=== PATIENT | male | born 1960 | race Caucasian/White ===

== ENCOUNTER 2017-07-17 10:17 | Inpatient (IN) | payer BC ==
[2017-07-17] MEDS ORDERED: DILTIAZEM HCL/D5W 125 MG/125 ML RTUINJ IV PRN (10:29)
[2017-07-17] MEDS ORDERED: NORMAL SALINE 1000 ML 1,000 ML IV ONE (10:40)
[2017-07-17] MEDS ORDERED: DIGOXIN INJ 0.5 MG/2 ML AMPULE IV ONE ×2 (10:41→11:31)
--- NOTE | 2017-07-17 10:51 | RADIOLOGY REPORT (SQ) ---
EXAM DESCRIPTION: CHEST SINGLE VIEW COMPLETED DATE/TIME: 07/17/2017 10:36 am REASON FOR STUDY: bed mp db COMPARISON: None. EXAM PARAMETERS: NUMBER OF VIEWS: One view. TECHNIQUE: Single frontal radiographic view of the chest acquired. RADIATION DOSE: NA LIMITATIONS: None. FINDINGS: LUNGS AND PLEURA: Minimal patchy airspace disease in the perihilar regions bilaterally, qu estion pulmonary edema. No pleural effusions. No pneumothorax. MEDIASTINUM AND HILAR STRUCTURES: No masses. Contour normal. HEART AND VASCULAR STRUCTURES: No cardiomegaly BONES: No acute findings. HARDWARE: None in the chest. OTHER: No other significant finding. IMPRESSION: Question minimal perihilar pulmonary edema TECHNICAL DOCUMENTATION: JOB ID: [id number] [employer]- All Rights Reserved
[2017-07-17 10:58] LABS: ABSOLUTE LYMPHOCYTES (AUTO) 1.1 10^3/uL (0.5-4.7); ABSOLUTE MONOCYTES (AUTO) 1.7 10^3/uL (0.1-1.4); ABSOLUTE NEUT (AUTO) 12.6 10^3/uL (1.7-8.2); BASOPHILS % (AUTO) 0.1 % (0-2); EOSINOPHILS % (AUTO) 0.1 % (0-6); HEMATOCRIT 44.3 % (37.9-51.0); HEMOGLOBIN 14.9 g/dL (13.5-17.0); LYMPHOCYTES % (AUTO) 7.3 % (13-45); MEAN CORPUSCULAR HEMOGLOBIN 31.9 pg (27.0-33.4); MEAN CORPUSCULAR HGB CONC 33.7 g/dL (32.0-36.0); MEAN CORPUSCULAR VOLUME 95 fl (80-97); PLATELET COUNT 217 10^3/uL (150-450); RED BLOOD COUNT 4.69 10^6/uL (4.35-5.55); RED CELL DISTRIBUTION WIDTH 13.5 % (11.5-14.0); SEGMENTED NEUTROPHILS % (AUTO) 81.5 % (42-78); TOTAL CELLS COUNTED % (AUTO) 100 %; WHITE BLOOD COUNT 15.5 10^3/uL (4.0-10.5)
[2017-07-17 11:20] LABS: ALANINE AMINOTRANSFERASE 39 U/L (21-72); ALBUMIN 3.7 g/dL (3.5-5.0); ALKALINE PHOSPHATASE 64 U/L (38-126); ANION GAP 8 (5-19); ASPARTATE AMINO TRANSFERASE 28 U/L (17-59); BILIRUBIN,DIRECT 0.4 mg/dL (0.0-0.4); BILIRUBIN,TOTAL 0.4 mg/dL (0.2-1.3); BLOOD UREA NITROGEN 54 mg/dL (7-20); CALCIUM 9.6 mg/dL (8.4-10.2); CARBON DIOXIDE 35 mmol/L (22-30); CHLORIDE 91 mmol/L (98-107); CREATINE KINASE 54 U/L (55-170); GLUCOSE 114 mg/dL (75-110); POTASSIUM 4.4 mmol/L (3.6-5.0); SODIUM 133.9 mmol/L (137-145)
--- NOTE | 2017-07-17 11:26 | ER Document Report ---
ED Respiratory Problem - General Chief Complaint: Shortness Of Breath Stated Complaint: SHORTNESS OF BREATH Time Seen by Provider: 07/17/17 10:28 Notes: Patient says that he has felt short of breath and very tired since Saturday. It has been constantly during this 3 days. Has never had this before. Has had a cough with some yellow phlegm production recently. Denies any chest pains. No nausea or vomiting. Patient was transported here by EMS. They were unable to establish an IV. He was given an albuterol nebulizer in route. TRAVEL OUTSIDE OF THE [place] IN LAST 30 DAYS: No - Related Data Allergies/Adverse Reactions: No Known Allergies Allergy (Unverified 07/17/17 10:55) Past Medical History - Social History Smoking Status: Current Every Day Smoker - Stopped 3 days ago. Chew tobacco use (# tins/day): No Frequency of alcohol use: Rare Drug Abuse: None Family History: Reviewed & Not Pertinent Patient has suicidal ideation: No Patient has homicidal ideation: No - Past Medical History Cardiac Medical History: Reports: Hx Hypertension Denies: Hx Atrial Fibrillation, Hx Congestive Heart Failure Pulmonary Medical History: Reports: Hx COPD Endocrine Medical History: Denies: Hx Diabetes Mellitus Type 1, Hx Diabetes Mellitus Type 2 Renal/ Medical History: Reports: Other - BPH Psychiatric Medical History: Reports: Hx Depression Review of Systems - Review of Systems Notes: REVIEW OF SYSTEMS: CONSTITUTIONAL : Denies fever. EENT: Denies eye, ear, nose or mouth or throat pain or other symptoms. CARDIOVASCULAR: Denies chest pain. No peripheral edema. RESPIRATORY: See HPI. GASTROINTESTINAL: Denies abdominal pain or nausea, vomiting, or diarrhea. GENITOURINARY: Denies difficulty or painful urinating, urinary frequency, blood in urine. MUSCULOSKELETAL: Denies back or neck pain. Denies joint pain or swelling. SKIN: Denies rash or skin lesions. NEUROLOGICAL: Denies LOC or altered mental status. Denies headache. Denies sensory loss or motor deficits. ALL OTHER SYSTEMS REVIEWED AND NEGATIVE. Physical Exam - Vital signs Vitals: Resp BP Pulse Ox 28 H 87/59 L 90 L 07/17/17 10:33 07/17/17 10:33 07/17/17 10:33 Interpretation: Hypotensive, Other - Irregular rhythm - Notes Notes: PHYSICAL EXAMINATION: GENERAL: Well-appearing, in no acute distress. Blood pressure with the systolic in the 70s. EMS got 122/79. HEAD: Atraumatic, normocephalic. EYES: Pupils equal round and reactive to light, extraocular movements intact. ENT: oropharynx clear without exudates. Moist mucous membranes. NECK: Normal range of motion, supple. LUNGS: Breath sounds with a few scattered wheezes bilaterally. A few rhonchi are heard as well. No rales heard. HEART: Irregular rate and rhythm without murmurs. ABDOMEN: Soft, nontender. No guarding or rebound. No masses. BACK: No tenderness throughout entire back. EXTREMITIES: Normal range of motion without pain. No pitting edema present. NEUROLOGICAL: Normal speech. Normal sensory, motor, and reflex exams. Awake, alert, and oriented x3. Cranial nerves normal. PSYCH: Normal mood, normal affect. SKIN: Warm, dry, no rashes. Course - Re-evaluation Re-evalutation: 07/17/17 11:26 Initially, blood pressure was low and patient was given a liter of saline and 0.25 mg of Lanoxin IV. Blood pressure remains in the 70s. 07/17/17 11:52 Blood pressure has come up to 91 systolic. Heart rate is down into the 130s. Still A. fib. Patient is alert and active and sits up on the side of the bed. Have ordered a second dose of Lanoxin 0.25 mg IV. Chest x-ray does not show evidence of overt failure. Radiologist says question minimal perihilar pulmonary edema. 07/17/17 12:20 Patient just converted to a normal sinus rhythm. EKG now is absolutely normal. 07/17/17 13:08 Spoke with hospitalist, who will admit the patient for observation to [facility]. - Vital Signs Vital signs: Temp Pulse Resp BP Pulse Ox 77 21 H 115/68 89 L 07/17/17 15:50 07/17/17 18:01 07/17/17 18:00 07/17/17 18:01 - Laboratory Result Diagrams: 07/17/17 10:42 07/17/17 10:42 Laboratory results interpreted by me: 07/17/17 07/17/17 10:42 10:42 WBC 15.5 H Seg Neutrophils % 81.5 H Lymphocytes % 7.3 L Absolute Neutrophils 12.6 H Absolute Monocytes 1.7 H Sodium 133.9 L Chloride 91 L Carbon Dioxide 35 H BUN 54 H Creatinine 1.50 H Est GFR ( Amer) 58 L Est GFR (Non-Af Amer) 48 L Glucose 114 H Creatine Kinase 54 L - Diagnostic Test Radiology results interpreted by me: 07/17/17 11:27 Chest x-ray is essentially normal. No cardiomegaly noted. - EKG Interpretation by Me Rate: Tachycardia Rhythm: A.Fib Critical Care Note - Critical Care Note Total time excluding time spent on procedures (mins): 45 Discharge - Discharge Clinical Impression: Atrial fibrillation with rapid ventricular response, Hypotension Condition: Fair Disposition: ADMITTED OBSERVATION Admitting Provider: Hospitalist Unit Admitted: [facility]
[2017-07-17 11:32] LABS: CREATINE KINASE MB 1.32 ng/mL (<4.55); TROPONIN I < 0.012 ng/mL
[2017-07-17] MEDS ORDERED: NORMAL SALINE 500 ML IV ONE (12:19)
[2017-07-17 13:20] LABS: MAGNESIUM 2.3 mg/dL (1.6-2.3); PHOSPHORUS 3.2 mg/dL (2.5-4.5)
[2017-07-17] MEDS ORDERED: MAGNESIUM HYDROXIDE SUSP 30 ML UDCUP PO PRN (13:45)
[2017-07-17] MEDS ORDERED: ONDANSETRON HCL INJ/PF 4 MG/2 ML SDV IV PRN (13:45)
[2017-07-17] MEDS ORDERED: ONDANSETRON 4 MG TAB.RAPDIS PO PRN (13:45)
[2017-07-17] MEDS ORDERED: ACETAMINOPHEN WITH CODEINE #3 TABLET PO PRN (13:51)
[2017-07-17] MEDS ORDERED: METHYLPREDNISOLONE INJ 40 MG/1 ML SDV IV ONE (15:00)
[2017-07-17] MEDS ORDERED: GUAIFENESIN 600 MG TABLET.SA PO ONE (15:15)
[2017-07-17] MEDS ORDERED: DOXYCYCLINE HYCLATE 100 MG TABLET PO ONE (15:30)
[2017-07-17] MEDS: LANSOPRAZOLE 30 MG TAB.RAP.DR PO SCH (16:18)
[2017-07-17] MEDS: 1/2 NORMAL SALINE 1,000 ML IV PRN (16:18)
[2017-07-17] MEDS: TAMSULOSIN HCL 0.4 MG CAP.SR.24H PO SCH (17:56)
--- NOTE | 2017-07-17 18:10 | PDOC H&P ---
History of Present Illness Admission Date/PCP: 07/17/17 13:15 No PCP, uses [facility] care as needed History of Present Illness: KAMERON TRUJILLO is a very pleasant 56 year old gentleman with a past medical history of: Hypertension BPH Insomnia Depression Nicotine dependence Outpatient medications include Fluoxetine 20 mg daily Lisinopril 40 mg daily Meloxicam gram daily Flomax 0.4 mg daily Trazodone 150 mg at bedtime Singulair 10 mg daily at bedtime Hydrochlorothiazide 25 mg daily He presented to the hospital today with 2 day history of palpitations and shortness of breath. He smokes about 3 cigarettes a day and quit approximately 3 days ago. EMS was called and he was given a nebulizer treatment on the way due to wheezing. When he arrived to the emergency room he was found to be in atrial fibrillation with rapid ventricular rate heart rate was in the 160s. Systolic blood pressure was in the 70s. He received 2 doses of digoxin 0.25 mg 30 minutes apart and converted to sinus rhythm. He was given IV fluid boluses and his current blood pressure is in the 90s systolic. He continues to cough has rhinorrhea and a sore throat. Palpitations have resolved. Denies any chest pain. Has a history of TIA or stroke or NH. Denies history of CHF. He takes meloxicam for arthritis. Does not use NSAIDs or Goody powders on a regular basis. He did notice black stools for a couple of days approximately 2 weeks ago. He did not seek medical attention for it. Last colonoscopy was 5 years ago and he had a few polyps which were removed. He has never had an upper endoscopy. Past Medical History Cardiac Medical History: Reports: Hypertension Denies: Atrial Fibrillation, Congestive Heart Failure Pulmonary Medical History: Reports: Chronic Obstructive Pulmonary Disease (COPD) Endocrine Medical History: Denies: Diabetes Mellitus Type 1, Diabetes Mellitus Type 2 Renal/ Medical History: Reports: Other - BPH Psychiatric Medical History: Reports: Depression Social History Smoking Status: Current Every Day Smoker - Stopped 3 days ago. Frequency of Alcohol Use: None Family History Family History: CAD, Hypertension Parental Family History Reviewed: Yes Children Family History Reviewed: Yes Sibling(s) Family History Reviewed.: Yes Medication/Allergy Home Medications: Fluoxetine HCl [Prozac 20 mg Capsule] 40 mg PO DAILY 07/17/17 Hydrochlorothiazide [Hydrodiuril 25 mg Tablet] 25 mg PO QAM 07/17/17 Lisinopril [Zestril] 40 mg PO DAILY 07/17/17 Meloxicam [Mobic] 7.5 mg PO BID 07/17/17 Montelukast Sodium [Singulair 10 mg Tablet] 10 mg PO QHS 07/17/17 Tamsulosin HCl [Flomax] 0.4 mg PO DAILY 07/17/17 Trazodone HCl [Desyrel] 150 mg PO QHS 07/17/17 Allergies/Adverse Reactions: No Known Allergies Allergy (Unverified 07/17/17 10:55) Review of Systems All systems: reviewed and no additional remarkable complaints except as stated Constitutional: PRESENT: as per HPI. ABSENT: fever(s), night sweats, weakness Eyes: ABSENT: visual disturbances Ears: ABSENT: hearing changes Nose, Mouth, and Throat: PRESENT: sore throat. ABSENT: headache(s) Cardiovascular: PRESENT: dyspnea on exertion, palpitations. ABSENT: chest pain , edema Respiratory: PRESENT: cough, dyspnea, sputum. ABSENT: hemoptysis Gastrointestinal: PRESENT: melena. ABSENT: abdominal pain, diarrhea, hematemesis, hematochezia, nausea, vomiting Integumentary: ABSENT: lesions, rash Neurological: ABSENT: abnormal movements, focal weakness, syncope, weakness Psychiatric: ABSENT: anxiety, hallucinations Endocrine: ABSENT: flushing, heat intolerance Physical Exam Vital Signs: Temp Pulse Resp BP Pulse Ox 24 H 99/62 L 95 07/17/17 13:00 07/17/17 13:00 07/17/17 13:00 Additional comments: Middle-aged gentleman sitting up in bed not in acute distress HEENT: Pupils reactive light moist pink oral fragile mucosa with no lesions no icterus no conjunctival discharge Neck: Supple, trachea is midline, no JVD Lungs: He has diffuse wheezing bilaterally with coarse breath sounds Cardiac: S1-S2 regular no murmurs heard no peripheral edema no cyanosis no calf tenderness no thrills palpable no JVD Abdomen: Soft, no focal tenderness, normal bowel sounds, rectal exam deferred Skin: Warm and dry Neurologic: Awake and alert oriented 3 no facial droop speech is clear and fluent no focal neurologic deficits Motor strength 5 out of 5 bilateral upper and lower extremities No tremor Results Impressions: Chest X-Ray 07/17/17 10:22 IMPRESSION: Question minimal perihilar pulmonary edema Assessment & Plan - Diagnosis (1) Atrial fibrillation with rapid ventricular response Is this a current diagnosis for this admission?: Yes Plan: Reverted to sinus rhythm. Check echocardiogram. Check TSH. (2) History of nicotine use Is this a current diagnosis for this admission?: Yes Plan: He quit 3 days ago. (3) Insomnia Is this a current diagnosis for this admission?: Yes Plan: Continue trazodone. (4) Depression Is this a current diagnosis for this admission?: Yes Plan: Continue fluoxetine (5) Hypotension Is this a current diagnosis for this admission?: Yes Plan: Hold lisinopril and hydrochlorothiazide. Continue IV fluids. (6) COPD exacerbation Is this a current diagnosis for this admission?: Yes Plan: Neb treatments, supplemental oxygen to keep sats above 90%, IV steroids, antitussives per (7) Acute bronchitis Is this a current diagnosis for this admission?: Yes Plan: As above. He has been started on doxycycline. - Time Critical Time spent with patient: 35 or more minutes
[2017-07-17] MEDS: LEVALBUTEROL HCL NEB 1.25 MG/3 ML AMPUL NEB PRN (18:12)
[2017-07-17 18:51] LABS: APPEARANCE,URINE SLIGHTLY-CLOUDY; BILIRUBIN,URINE NEGATIVE (NEGATIVE); COLOR,URINE YELLOW; GLUCOSE, URINE NEGATIVE (NEGATIVE); KETONES,URINE NEGATIVE (NEGATIVE); LEUKOCYTE ESTERASE,URINE MODERATE (NEGATIVE); NITRITE,URINE NEGATIVE (NEGATIVE); PROTEIN,URINE NEGATIVE (NEGATIVE); UROBILINOGEN,URINE NEGATIVE mg/dL (<2.0)
[2017-07-17] MEDS: LEVALBUTEROL HCL NEB 0.63 MG/3 ML AMPUL NEB SCH (20:56)
[2017-07-17] MEDS: METHYLPREDNISOLONE INJ 40 MG/1 ML SDV IV SCH (21:10)
[2017-07-17] MEDS: MONTELUKAST SODIUM 10 MG TABLET PO SCH (21:10)
[2017-07-17] MEDS: TRAZODONE HCL 50 MG TABLET PO SCH (21:10)
[2017-07-17] MEDS: DOXYCYCLINE HYCLATE 100 MG TABLET PO SCH (21:10)
[2017-07-17] MEDS: GUAIFENESIN 600 MG TABLET.SA PO SCH (21:11)
--- NOTE | 2017-07-17 23:10 | EKG REPORT ---
SEVERITY:- ABNORMAL ECG - ATRIAL FIBRILLATION WITH RAPID V-RATE : Confirmed by: Chavez Chavez 17-Jul-2017 23:10:12
--- NOTE | 2017-07-17 23:10 | EKG REPORT ---
SEVERITY:- NORMAL ECG - SINUS RHYTHM : Confirmed by: Chavez Chavez 17-Jul-2017 23:10:03
[2017-07-17 23:48] LABS: HEMATOCRIT 43.7 % (37.9-51.0); HEMOGLOBIN 14.6 g/dL (13.5-17.0); MEAN CORPUSCULAR HEMOGLOBIN 31.7 pg (27.0-33.4); MEAN CORPUSCULAR HGB CONC 33.4 g/dL (32.0-36.0); MEAN CORPUSCULAR VOLUME 95 fl (80-97); PLATELET COUNT 187 10^3/uL (150-450); RED BLOOD COUNT 4.61 10^6/uL (4.35-5.55); RED CELL DISTRIBUTION WIDTH 13.4 % (11.5-14.0)
[2017-07-18] MEDS: 1/2 NORMAL SALINE 1,000 ML IV PRN (00:07)
[2017-07-18 00:18] LABS: ABSOLUTE LYMPHOCYTES# (MANUAL) 0.4 10^3/uL (0.5-4.7); ABSOLUTE MONOCYTES # (MANUAL) 0.2 10^3/uL (0.1-1.4); ABSOLUTE NEUTROPHILS# (MANUAL) 9.4 10^3/uL (1.7-8.2); BAND NEUTROPHILS % (MANUAL) 3 % (3-5); BASOPHILS % (MANUAL) 0 % (0-2); EOSINOPHILS % (MANUAL) 0 % (0-6); LYMPHOCYTES % (MANUAL) 4 % (13-45); MONOCYTES % (MANUAL) 2 % (3-13); NUCLEATED RED BLOOD CELLS 1 /100 WBC (0); SEGMENTED NEUTROPHILS % (MAN) 91 % (42-78); TOTAL CELLS COUNTED 100
[2017-07-18 00:19] LABS: OVALOCYTES SLIGHT; POIKILOCYTOSIS SLIGHT; TEAR DROP CELLS SLIGHT; TOXIC GRANULATION SLIGHT
[2017-07-18 00:20] LABS: PLATELET COMMENT ADEQUATE
[2017-07-18] MEDS: LEVALBUTEROL HCL NEB 0.63 MG/3 ML AMPUL NEB SCH ×4 (02:07→20:07)
[2017-07-18] MEDS: LANSOPRAZOLE 30 MG TAB.RAP.DR PO SCH ×2 (05:27→17:06)
[2017-07-18] MEDS: METHYLPREDNISOLONE INJ 40 MG/1 ML SDV IV SCH ×3 (05:27→21:49)
[2017-07-18 05:28] LABS: HEMATOCRIT 42.8 % (37.9-51.0); HEMOGLOBIN 14.6 g/dL (13.5-17.0); MEAN CORPUSCULAR HEMOGLOBIN 32.3 pg (27.0-33.4); MEAN CORPUSCULAR VOLUME 95 fl (80-97); PLATELET COUNT 194 10^3/uL (150-450); RED BLOOD COUNT 4.51 10^6/uL (4.35-5.55); RED CELL DISTRIBUTION WIDTH 13.4 % (11.5-14.0)
[2017-07-18 05:48] LABS: ANION GAP 9 (5-19); BLOOD UREA NITROGEN 41 mg/dL (7-20); CALCIUM 9.3 mg/dL (8.4-10.2); CARBON DIOXIDE 32 mmol/L (22-30); CHLORIDE 96 mmol/L (98-107); GLUCOSE 165 mg/dL (75-110); MAGNESIUM 2.7 mg/dL (1.6-2.3); POTASSIUM 5.1 mmol/L (3.6-5.0); TRIGLYCERIDES 121 mg/dL (<150)
[2017-07-18 05:59] LABS: DIRECT LDL 79 mg/dL (<100)
[2017-07-18] MEDS ORDERED: FUROSEMIDE INJ/PF 20 MG/2 ML SDV ONE (09:20)
[2017-07-18] MEDS: GUAIFENESIN 600 MG TABLET.SA PO SCH ×3 (09:22→21:48)
[2017-07-18] MEDS: ENOXAPARIN SODIUM INJ 40 MG/0.4 ML DISP.SYRIN SUBCUT SCH (09:22)
[2017-07-18] MEDS: DOXYCYCLINE HYCLATE 100 MG TABLET PO SCH ×2 (09:22→21:48)
[2017-07-18] MEDS ORDERED: ONDANSETRON 4 MG TAB.RAPDIS PO PRN (10:00)
[2017-07-18] MEDS ORDERED: MAGNESIUM HYDROXIDE SUSP 30 ML UDCUP PO PRN (10:00)
[2017-07-18] MEDS ORDERED: MELOXICAM 15 MG TABLET PO SCH (10:00)
[2017-07-18] MEDS ORDERED: FLUOXETINE HCL 20 MG CAPSULE PO SCH (10:00)
[2017-07-18] MEDS ORDERED: ONDANSETRON HCL INJ/PF 4 MG/2 ML SDV IV PRN (10:00)
[2017-07-18] MEDS ORDERED: ASPIRIN 325 MG TABLET, ENT COATED PO SCH (10:00)
[2017-07-18] MEDS ORDERED: FUROSEMIDE INJ/PF 100 MG/10 ML SDV IV ONE (10:00)
[2017-07-18] MEDS: ASPIRIN 325 MG TABLET, ENT COATED PO SCH (10:42)
--- NOTE | 2017-07-18 13:15 | XCELERA REPORT ---
[address] [address] Transthoracic Echocardiogram Report Name: KAMERON TRUJILLO Age: 56 yrs Gender: Male : 1960 Patient Status: Inpatient Patient Location: [address] [place] [address] Study Date: 07/18/2017 10:20 AM Height: 68 in Weight: 223 lb BSA: 2.1 m2 Procedure: A two-dimensional transthoracic echocardiogram with color flow Doppler was performed. Study Quality: Technically suboptimal. The study was technically difficult with many images being suboptimal in quality. Reason For Study: ATRIAL FIBRILLATION History: ATRIAL FIBRILLATION. Ordering Physician: DESEAN MILLER Performed By: Edie Cruz Interpretation Summary The left ventricle is normal in size. There is normal left ventricular wall thickness. LV EF is > than 65% Doppler measurements suggest normal left ventricular diastolic function The left ventricular wall motion is normal. There is no ventricular septal defect visualized. The right atrium is normal. The left atrial size is normal. There is no evidence of mitral valve prolapse. There is no vegetation seen on the mitral valve. There is no mitral valve stenosis. There is no mitral regurgitation noted. There is no aortic valvular vegetation. There is no aortic valve stenosis There is no LVOT obstruction. No aortic regurgitation is present. There is no tricuspid stenosis. There is a trace amount of tricuspid regurgitation There is mild pulmonary hypertension by echo RVSP is 44 mm of Hg , with RA mean of 10. There is no pulmonic valvular stenosis. There is no pulmonic valvular regurgitation. The aortic root is normal size. There is no pericardial effusion. MMode/2D Measurements & Calculations RVDd: 3.1 cm LVIDd: 4.8 cm FS: 42.5 % Ao root diam: 3.1 cm IVSd: 0.92 cm LVIDs: 2.8 cm EDV(Teich): 109.1 ml LVPWd: 0.86 cm ESV(Teich): 28.9 ml Ao root area: 7.3 cm2 EF(Teich): 73.5 % LA dimension: 3.5 cm Doppler Measurements & Calculations MV E max lala: MV P1/2t max lala: Ao V2 max: LV V1 max P.2 cm/sec 110.8 cm/sec 152.9 cm/sec 6.6 mmHg MV A max lala: MV P1/2t: 90.6 msec Ao max PG: LV V1 max: 83.9 cm/sec 9.4 mmHg 128.9 cm/sec MV E/A: 1.3 MVA(P1/2t): 2.4 cm2 MV dec slope: 358.0 cm/sec2 PA V2 max: TR max lala: 120.1 cm/sec 291.8 cm/sec PA max PG: TR max P.1 mmHg 5.8 mmHg Left Ventricle The left ventricle is normal in size. There is normal left ventricular wall thickness. LV EF is > than 65%. Left ventricular systolic function is normal. Doppler measurements suggest normal left ventricular diastolic function. The left ventricular wall motion is normal. There is no thrombus. There is no ventricular septal defect visualized. Right Ventricle The right ventricle is not well visualized secondary to technical limitations. Atria The right atrium is normal. The left atrial size is normal. The interatrial septum is intact with no evidence for an atrial septal defect. Mitral Valve There is no evidence of mitral valve prolapse. There is no vegetation seen on the mitral valve. There is no mitral valve stenosis. There is no mitral regurgitation noted. Aortic Valve There is no aortic valvular vegetation. There is no aortic valve stenosis. There is no LVOT obstruction. No aortic regurgitation is present. Tricuspid Valve There is no tricuspid stenosis. There is a trace amount of tricuspid regurgitation. There is mild pulmonary hypertension by echo. RVSP is 44 mm of Hg , with RA mean of 10. Pulmonic Valve There is no pulmonic valvular stenosis. There is no pulmonic valvular regurgitation. Great Vessels The aortic root is normal size. Effusions There is no pericardial effusion. : PAUL, MAY > Carlota Joseph
[2017-07-18] MEDS: TAMSULOSIN HCL 0.4 MG CAP.SR.24H PO SCH (17:06)
--- NOTE | 2017-07-18 18:15 | PDOC PROGRESS REPORT ---
Subjective Progress Note for:: 07/18/17 Subjective:: Very pleasant 56-year-old gentleman with a history of hypertension and tobacco use who presented with atrial fibrillation with RVR which reverted to sinus rhythm after he got 2 doses of digoxin in the emergency room. He was diagnosed with hypoxia acute bronchitis and COPD exacerbation and continues to be short of breath and hypoxic. We will continue to treat him with steroids and antibiotics. He also had some signs of pulmonary edema most likely due to fluid overload and received 1 dose of Lasix and is doing better. Reason For Visit: AFIB RVR ACUTE BRONCHITIS Physical Exam Vital Signs: Temp Pulse Resp BP Pulse Ox 98.4 F 73 18 121/64 92 07/18/17 16:47 07/18/17 16:47 07/18/17 16:47 07/18/17 16:47 07/18/17 16:47 Intake & Output 07/17/17 07/18/17 07/19/17 06:59 06:59 06:59 Intake Total 1754 Output Total 300 Balance 1454 Weight 102 kg Additional comments: Lace male sitting in bed not in acute distress Lungs: Coarse breath sounds bilaterally positive use of accessory muscles Cardiac: S1-S2 regular no peripheral edema no cyanosis no calf tenderness no thrills palpable Abdomen: Soft, no focal tenderness normal bowel sounds rectal exam deferred Skin: Warm and dry Neurologic awake alert oriented 3 speech is clear and fluent no focal neurologic deficits Results Laboratory Results: 07/18/17 04:55 07/18/17 04:55 07/17/17 07/17/17 07/18/17 18:30 23:40 04:55 WBC 10.0 RBC 4.61 Hgb 14.6 Hct 43.7 MCV 95 MCH 31.7 MCHC 33.4 RDW 13.4 Plt Count 187 Seg Neutrophils % Not Reportable Lymphocytes % Not Reportable Monocytes % Not Reportable Eosinophils % Not Reportable Basophils % Not Reportable Absolute Neutrophils Not Reportable Absolute Lymphocytes Not Reportable Absolute Monocytes Not Reportable Absolute Eosinophils Not Reportable Absolute Basophils Not Reportable Sodium 137.0 Potassium 5.1 H Chloride 96 L Carbon Dioxide 32 H Anion Gap 9 BUN 41 H Creatinine 1.02 Est GFR ( Amer) > 60 Est GFR (Non-Af Amer) > 60 Glucose 165 H Calcium 9.3 Magnesium 2.7 H Triglycerides 121 Cholesterol 148.20 LDL Cholesterol Direct 79 VLDL Cholesterol 24.0 HDL Cholesterol 36 L TSH Urine Color YELLOW Urine Appearance SLIGHTLY-CLOUDY Urine pH 5.0 Ur Specific [place] 1.010 Urine Protein NEGATIVE Urine Glucose (UA) NEGATIVE Urine Ketones NEGATIVE Urine Blood SMALL H Urine Nitrite NEGATIVE Ur Leukocyte Esterase MODERATE H Urine WBC (Auto) 30 Urine RBC (Auto) 0 07/18/17 07/18/17 04:55 04:55 WBC 8.0 RBC 4.51 Hgb 14.6 Hct 42.8 MCV 95 MCH 32.3 MCHC 34.0 RDW 13.4 Plt Count 194 Seg Neutrophils % Lymphocytes % Monocytes % Eosinophils % Basophils % Absolute Neutrophils Absolute Lymphocytes Absolute Monocytes Absolute Eosinophils Absolute Basophils Sodium Potassium Chloride Carbon Dioxide Anion Gap BUN Creatinine Est GFR ( Amer) Est GFR (Non-Af Amer) Glucose Calcium Magnesium Triglycerides Cholesterol LDL Cholesterol Direct VLDL Cholesterol HDL Cholesterol TSH 0.09 L Urine Color Urine Appearance Urine pH Ur Specific [place] Urine Protein Urine Glucose (UA) Urine Ketones Urine Blood Urine Nitrite Ur Leukocyte Esterase Urine WBC (Auto) Urine RBC (Auto) 07/18/17 04:45 NT-Pro-B Natriuret Pep 259 Impressions: Chest X-Ray 07/17/17 10:22 IMPRESSION: Question minimal perihilar pulmonary edema Assessment & Plan - Diagnosis (1) Atrial fibrillation with rapid ventricular response Is this a current diagnosis for this admission?: Yes (2) History of nicotine use Is this a current diagnosis for this admission?: Yes (3) Insomnia Is this a current diagnosis for this admission?: Yes (4) Depression Is this a current diagnosis for this admission?: Yes (5) Hypotension Is this a current diagnosis for this admission?: Yes (6) COPD exacerbation Is this a current diagnosis for this admission?: Yes (7) Acute bronchitis Is this a current diagnosis for this admission?: Yes - Time Time Spent with patient: 25-34 minutes - Plan Summary Plan Summary: [id number] score is 1, his risk of stroke is 0.6% per year. He will not be started on anticoagulation. Continue aspirin. He is in sinus rhythm. Continue to treat his acute bronchitis and COPD exacerbation with steroids and bronchodilators supplemental oxygen and antibiotics.
[2017-07-18] MEDS: MONTELUKAST SODIUM 10 MG TABLET PO SCH (21:47)
[2017-07-18] MEDS: TRAZODONE HCL 50 MG TABLET PO SCH (21:48)
[2017-07-19] MEDS: LEVALBUTEROL HCL NEB 0.63 MG/3 ML AMPUL NEB SCH ×4 (02:01→21:13)
[2017-07-19] MEDS: METHYLPREDNISOLONE INJ 40 MG/1 ML SDV IV SCH ×3 (05:28→21:25)
[2017-07-19] MEDS: LANSOPRAZOLE 30 MG TAB.RAP.DR PO SCH ×2 (05:28→17:10)
[2017-07-19] MEDS: LEVALBUTEROL HCL NEB 1.25 MG/3 ML AMPUL NEB PRN ×2 (05:49→20:37)
[2017-07-19] MEDS ORDERED: TAMSULOSIN HCL 0.4 MG CAP.SR.24H PO SCH (10:00)
[2017-07-19] MEDS: DOXYCYCLINE HYCLATE 100 MG TABLET PO SCH ×2 (10:02→21:25)
[2017-07-19] MEDS: ENOXAPARIN SODIUM INJ 40 MG/0.4 ML DISP.SYRIN SUBCUT SCH (10:02)
[2017-07-19] MEDS: ASPIRIN 325 MG TABLET, ENT COATED PO SCH (10:02)
[2017-07-19] MEDS: GUAIFENESIN 600 MG TABLET.SA PO SCH ×2 (10:02→21:26)
[2017-07-19] MEDS: FLUOXETINE HCL 20 MG CAPSULE PO SCH (10:08)
[2017-07-19] MEDS ORDERED: MELOXICAM 7.5 MG TABLET PO ONE (11:00)
[2017-07-19] MEDS ORDERED: HYDROCHLOROTHIAZIDE 25 MG TABLET PO ONE (11:00)
[2017-07-19 11:49] LABS: ANION GAP 6 (5-19); BLOOD UREA NITROGEN 38 mg/dL (7-20); CALCIUM 9.4 mg/dL (8.4-10.2); CARBON DIOXIDE 39 mmol/L (22-30); CHLORIDE 94 mmol/L (98-107); GLUCOSE 138 mg/dL (75-110); POTASSIUM 4.6 mmol/L (3.6-5.0); SODIUM 139.4 mmol/L (137-145)
[2017-07-19 12:20] LABS: THYROID STIMULATING HORMONE 0.09 uIU/mL (0.47-4.68)
[2017-07-19 12:47] LABS: FREE T4 (FREE THYROXINE) 1.69 ng/dL (0.78-2.19)
[2017-07-19] MEDS ORDERED: ACETAMINOPHEN WITH CODEINE #3 TABLET PO PRN (13:54)
[2017-07-19] MEDS: TAMSULOSIN HCL 0.4 MG CAP.SR.24H PO SCH (17:10)
[2017-07-19] MEDS: ACETAMINOPHEN WITH CODEINE #3 TABLET PO SCH (17:11)
[2017-07-19] MEDS ORDERED: MELOXICAM 7.5 MG TABLET PO SCH (18:00)
--- NOTE | 2017-07-19 19:13 | PDOC PROGRESS REPORT ---
Subjective Progress Note for:: 07/19/17 Subjective:: Feels a little better today. Continues to cough Reason For Visit: ATRIAL FIBRILLATION WITH RVR, ACUTE BRONCHITIS, Physical Exam Vital Signs: Temp Pulse Resp BP Pulse Ox 98.6 F 73 20 132/68 H 95 07/19/17 16:09 07/19/17 16:09 07/19/17 16:09 07/19/17 16:09 07/19/17 16:09 Intake & Output 07/18/17 07/19/17 07/20/17 06:59 06:59 06:59 Intake Total 1259 60 Balance 1259 60 Weight 96.8 kg General appearance: PRESENT: no acute distress Head exam: PRESENT: atraumatic, normocephalic Eye exam: ABSENT: periorbital swelling Ear exam: PRESENT: normal external ear exam Respiratory exam: PRESENT: symmetrical, wheezes Cardiovascular exam: PRESENT: RRR GI/Abdominal exam: PRESENT: normal bowel sounds, soft. ABSENT: tenderness Rectal exam: PRESENT: deferred Extremities exam: ABSENT: calf tenderness, pedal edema Neurological exam: PRESENT: alert, awake, oriented to person, oriented to place , oriented to time, oriented to situation Results Laboratory Results: 07/19/17 11:11 07/19/17 07/19/17 11:11 11:11 Sodium 139.4 Potassium 4.6 Chloride 94 L Carbon Dioxide 39 H Anion Gap 6 BUN 38 H Creatinine 0.97 Est GFR ( Amer) > 60 Est GFR (Non-Af Amer) > 60 Glucose 138 H Calcium 9.4 TSH 0.09 L Free T4 1.69 Impressions: Chest X-Ray 07/17/17 10:22 IMPRESSION: Question minimal perihilar pulmonary edema Assessment & Plan - Diagnosis (1) Atrial fibrillation with rapid ventricular response Is this a current diagnosis for this admission?: Yes Plan: Reverted to sinus rhythm. Check echocardiogram. Check TSH. (2) History of nicotine use Is this a current diagnosis for this admission?: Yes Plan: He quit 3 days ago. (3) Insomnia Is this a current diagnosis for this admission?: Yes Plan: Continue trazodone. (4) Depression Is this a current diagnosis for this admission?: Yes Plan: Continue fluoxetine (5) Hypotension Is this a current diagnosis for this admission?: Yes (6) COPD exacerbation Is this a current diagnosis for this admission?: Yes Plan: Neb treatments, supplemental oxygen to keep sats above 90%, IV steroids, antitussives. (7) Acute bronchitis Is this a current diagnosis for this admission?: Yes Plan: As above. He has been started on doxycycline. - Time Time Spent with patient: 25-34 minutes
[2017-07-19] MEDS: MONTELUKAST SODIUM 10 MG TABLET PO SCH (21:25)
[2017-07-19] MEDS ORDERED: TRAZODONE HCL 50 MG TABLET PO SCH (22:00)
[2017-07-19] MEDS ORDERED: MONTELUKAST SODIUM 10 MG TABLET PO SCH (22:00)
[2017-07-19] MEDS ORDERED: (PENDING PHARMACY ID) (Trazodone Hcl [Desyrel] 150 MG) PO SCH (22:00)
[2017-07-20] MEDS: LANSOPRAZOLE 30 MG TAB.RAP.DR PO SCH (05:48)
[2017-07-20] MEDS: METHYLPREDNISOLONE INJ 40 MG/1 ML SDV IV SCH ×2 (05:48→14:05)
[2017-07-20] MEDS: LEVALBUTEROL HCL NEB 0.63 MG/3 ML AMPUL NEB SCH ×2 (07:54→14:43)
[2017-07-20] MEDS ORDERED: HYDROCHLOROTHIAZIDE 25 MG TABLET PO SCH (08:00)
[2017-07-20] MEDS ORDERED: MELOXICAM 15 MG TABLET PO SCH (10:00)
[2017-07-20] MEDS: FLUOXETINE HCL 20 MG CAPSULE PO SCH (10:58)
[2017-07-20] MEDS: ACETAMINOPHEN WITH CODEINE #3 TABLET PO SCH (10:58)
[2017-07-20] MEDS: GUAIFENESIN 600 MG TABLET.SA PO SCH (10:58)
[2017-07-20] MEDS: ASPIRIN 325 MG TABLET, ENT COATED PO SCH (10:59)
[2017-07-20] MEDS: DOXYCYCLINE HYCLATE 100 MG TABLET PO SCH (10:59)
[2017-07-20] MEDS: ENOXAPARIN SODIUM INJ 40 MG/0.4 ML DISP.SYRIN SUBCUT SCH (11:01)
--- NOTE | 2017-07-20 14:42 | PDOC DISCHARGE SUMMARY ---
General - Admit/Disc Date/PCP Admission Date/Primary Care Provider: 07/18/17 17:44 [facility] Discharge Date: 07/20/17 - Discharge Diagnosis (1) Atrial fibrillation with rapid ventricular response Is this a current diagnosis for this admission?: Yes (2) History of nicotine use Is this a current diagnosis for this admission?: Yes (3) Insomnia Is this a current diagnosis for this admission?: Yes (4) Depression Is this a current diagnosis for this admission?: Yes (5) Hypotension Is this a current diagnosis for this admission?: Yes (6) COPD exacerbation Is this a current diagnosis for this admission?: Yes (7) Acute bronchitis Is this a current diagnosis for this admission?: Yes - Additional Information Discharge Diet: Cardiac Prescriptions: Acetaminophen with Codeine [Tylenol #3 Tablet] 1 each PO Q12HP PRN 10 Days #20 tablet PRN Reason: Albuterol Sulfate [Ventolin HFA MDI 18 GM] 1 - 2 puff IH Q4H PRN #1 mdi PRN Reason: Aspirin [Ecotrin 325 mg EC Tablet] 325 mg PO DAILY 90 Days #90 Doxycycline Hyclate [Vibramycin 100 mg Tablet] 100 mg PO Q12 5 Days #11 tablet Lansoprazole [Prevacid 30 mg Odt Tablet] 30 mg PO BID@0600,1700 10 Days #10 tab.rap. Prednisone [Deltasone 20 mg Tablet] 60 mg PO DAILY #13 tablet Home Medications: Fluoxetine HCl [Prozac 20 mg Capsule] 40 mg PO DAILY 07/17/17 Hydrochlorothiazide [Hydrodiuril 25 mg Tablet] 25 mg PO QAM 07/17/17 Lisinopril [Zestril] 40 mg PO DAILY 07/17/17 Meloxicam [Mobic] 7.5 mg PO BID 07/17/17 Montelukast Sodium [Singulair 10 mg Tablet] 10 mg PO QHS 07/17/17 Tamsulosin HCl [Flomax] 0.4 mg PO DAILY 07/17/17 Trazodone HCl [Desyrel] 150 mg PO QHS 07/17/17 Acetaminophen with Codeine [Tylenol #3 Tablet] 1 each PO Q12HP PRN 10 Days #20 tablet 07/20/17 Acetaminophen with Codeine [Tylenol #3 Tablet] 1 each PO Q4HP PRN tablet Albuterol Sulfate [Ventolin HFA MDI 18 GM] 1 - 2 puff IH Q4H PRN #1 mdi Aspirin [Ecotrin 325 mg EC Tablet] 325 mg PO DAILY 90 Days #90 07/20/17 Doxycycline Hyclate [Vibramycin 100 mg Tablet] 100 mg PO Q12 5 Days #11 tablet 07/20/17 Lansoprazole [Prevacid 30 mg Odt Tablet] 30 mg PO BID@0600,1700 10 Days #10 tab.rap. 07/20/17 Montelukast Sodium [Singulair 10 mg Tablet] 10 mg PO QHS tablet 07/20/17 Prednisone [Deltasone 20 mg Tablet] 60 mg PO DAILY #13 tablet 07/20/17 Tamsulosin HCl [Flomax 0.4 mg Cap.sr] 0.4 mg PO PCSUPPER cap.sr.24h 07/20/17 Trazodone HCl [Desyrel 50 mg Tablet] 150 mg PO QHS tablet 07/20/17 History of Present Illness History of Present Illness: KAMERON TRUJILLO is a very pleasant 56 year old gentleman with a past medical history of: Hypertension BPH Insomnia Depression Nicotine dependence Outpatient medications include Fluoxetine 20 mg daily Lisinopril 40 mg daily Meloxicam gram daily Flomax 0.4 mg daily Trazodone 150 mg at bedtime Singulair 10 mg daily at bedtime Hydrochlorothiazide 25 mg daily He presented to the hospital today with 2 day history of palpitations and shortness of breath. He smokes about 3 cigarettes a day and quit approximately 3 days ago. EMS was called and he was given a nebulizer treatment on the way due to wheezing. When he arrived to the emergency room he was found to be in atrial fibrillation with rapid ventricular rate heart rate was in the 160s. Systolic blood pressure was in the 70s. He received 2 doses of digoxin 0.25 mg 30 minutes apart and converted to sinus rhythm. He was given IV fluid boluses and his current blood pressure is in the 90s systolic. He continues to cough has rhinorrhea and a sore throat. Palpitations have resolved. Denies any chest pain. Has a history of TIA or stroke or IA. Denies history of CHF. He takes meloxicam for arthritis. Does not use NSAIDs or Goody powders on a regular basis. He did notice black stools for a couple of days approximately 2 weeks ago. He did not seek medical attention for it. Last colonoscopy was 5 years ago and he had a few polyps which were removed. He has never had an upper endoscopy. He was treated for acute COPD exacerbation and acute hypoxic respiratory failure acute bronchitis. He has remained in sinus rhythm. He will be discharged on home oxygen 2 L by nasal cannula, steroids and antibiotics. He is to follow-up as an outpatient with primary care in 1 week TSH was 0.09 with free T4 of 1.69. His heart rate is in the 50s and 60s in sinus rhythm. The patient will need a radioactive iodine uptake study as an outpatient. Next Hospital Course Hospital Course: As above Physical Exam Vital Signs: Temp Pulse Resp BP Pulse Ox 98.3 F 68 16 132/67 H 92 07/20/17 12:00 07/20/17 14:00 07/20/17 12:00 07/20/17 12:00 07/20/17 12:00 Intake & Output 07/19/17 07/20/17 07/21/17 06:59 06:59 06:59 Intake Total 1259 3522 514 Output Total 400 Balance 1259 3122 514 Weight 96.8 kg 104.9 kg Neck exam: ABSENT: tenderness, tracheal deviation Respiratory exam: PRESENT: rhonchi, unlabored. ABSENT: retraction Cardiovascular exam: PRESENT: RRR GI/Abdominal exam: PRESENT: normal bowel sounds Results Laboratory Results: 07/19/17 11:11 Impressions: Chest X-Ray 07/17/17 10:22 IMPRESSION: Question minimal perihilar pulmonary edema Plan Time Spent: Greater than 30 Minutes
[2017-07-20] MEDS ORDERED: INFLUENZA ADLT QUAD (36MOS+) 2017-18 VAC 0.5 ML SYR IM PRN (15:43)
[2017-07-20 16:01] VITALS: BP 136/77
== END 2017-07-20 17:12 | disposition home or self-care (01) | DRG 192 ==
LOC: ER 10:17 → EH 13:15 → 3S 19:05 → OBSVTOIN 07-18 17:44
PROVIDERS: ADMIT Internal Medicine; ATTEND Internal Medicine
DX: J44.0 Chronic obstructive pulmonary disease with (acute) lower respiratory infection (principal); J20.9 Acute bronchitis, unspecified; J44.1 Chronic obstructive pulmonary disease with (acute) exacerbation; I48.91 Unspecified atrial fibrillation; F31.9 Bipolar disorder, unspecified; G47.00 Insomnia, unspecified; I10 Essential (primary) hypertension; N40.0 Benign prostatic hyperplasia without lower urinary tract symptoms; I95.9 Hypotension, unspecified; F17.210 Nicotine dependence, cigarettes, uncomplicated; R09.02 Hypoxemia; J34.89 Other specified disorders of nose and nasal sinuses; R05 Cough; Z79.899 Other long term (current) drug therapy; M19.90 Unspecified osteoarthritis, unspecified site; Z86.010 Personal history of colon polyps; Z82.49 Family history of ischemic heart disease and other diseases of the circulatory system
CPT/HCPCS: 36415; 71045; 80048; 80053; 80061; 81001; 82550; 82553; 83036; 83735; 83880; 84100; 84439; 84443; 84484; 85025; 85027; 87040; 87493; 90686; 93005; 93010; 93306; 94640; 94667; 94799; 96361; 96374; 96375; 96376; 99291; J1160; J1650; J1940; J2920; J3490; J7030; J7040; J7614

== ENCOUNTER 2017-09-27 13:29 | Inpatient (IN) | payer BC ==
[~2017-09-27 13:29] MED LIST: ROCURONIUM BROMIDE INJ 50 MG/5 ML VIAL IV ONE
--- NOTE | 2017-09-27 13:58 | RADIOLOGY REPORT (SQ) ---
EXAM DESCRIPTION: CHEST SINGLE VIEW COMPLETED DATE/TIME: 09/27/2017 1:46 pm REASON FOR STUDY: SOB COMPARISON: 07/17/2017 EXAM PARAMETERS: NUMBER OF VIEWS: One view. TECHNIQUE: Single frontal radiographic view of the chest acquired. RADIATION DOSE: NA LIMITATIONS: None. FINDINGS: LUNGS AND PLEURA: There is considerable opacification in the right lung base and milder op acification in the left in the retrocardiac area. MEDIASTINUM AND HILAR STRUCTURES: No masses. Contour normal. HEART AND VASCULAR STRUCTURES: Heart normal in size. Normal vasculature. BONES: No acute findings. HARDWARE: None in the chest. OTHER: No other significant finding. IMPRESSION: Right lower lobe pneumonia. Cannot exclude loop minimal left lower lobe pneumonia. TECHNICAL DOCUMENTATION: JOB ID: [id number] [employer]- All Rights Reserved Reading location - IP/workstation name: [email or web address]
[2017-09-27] MEDS ORDERED: AZITHROMYCIN INJ 500 MG VIAL IV ONE (14:06)
[2017-09-27] MEDS ORDERED: CEFTRIAXONE INJ 1000 MG VIAL IV ONE (14:06)
[2017-09-27] MEDS ORDERED: IPRATROPIUM/ALBUTEROL 0.5-2.5 MG/3 ML AMPUL NEB ONE ×2 (14:09→23:30)
[2017-09-27 14:15] LABS: HEMATOCRIT 37.9 % (37.9-51.0); HEMOGLOBIN 12.3 g/dL (13.5-17.0); MEAN CORPUSCULAR HEMOGLOBIN 30.4 pg (27.0-33.4); MEAN CORPUSCULAR HGB CONC 32.5 g/dL (32.0-36.0); MEAN CORPUSCULAR VOLUME 94 fl (80-97); PLATELET COUNT 383 10^3/uL (150-450); RED BLOOD COUNT 4.05 10^6/uL (4.35-5.55); RED CELL DISTRIBUTION WIDTH 14.3 % (11.5-14.0)
[2017-09-27 14:18] LABS: VENOUS BLOOD BASE EXCESS 2.1 mmol/L; VENOUS BLOOD HCO3 30.7 mmol/L (20-32); VENOUS BLOOD PH 7.29 (7.30-7.42)
[2017-09-27 14:23] LABS: WHITE BLOOD COUNT 34.3 10^3/uL (4.0-10.5)
[2017-09-27] MEDS ORDERED: NORMAL SALINE 1000 ML 1,000 ML IV ONE (14:28)
[2017-09-27 14:30] LABS: VENOUS BLOOD PCO2 65.4 mmHg (35-63)
[2017-09-27 14:31] LABS: ABSOLUTE LYMPHOCYTES# (MANUAL) 0.3 10^3/uL (0.5-4.7); ABSOLUTE MONOCYTES # (MANUAL) 0.7 10^3/uL (0.1-1.4); ABSOLUTE NEUTROPHILS# (MANUAL) 33.3 10^3/uL (1.7-8.2); BAND NEUTROPHILS % (MANUAL) 1 % (3-5); BASOPHILS % (MANUAL) 0 % (0-2); EOSINOPHILS % (MANUAL) 0 % (0-6); LYMPHOCYTES % (MANUAL) 1 % (13-45); MONOCYTES % (MANUAL) 2 % (3-13); SEGMENTED NEUTROPHILS % (MAN) 96 % (42-78); TOTAL CELLS COUNTED 100
[2017-09-27 14:32] LABS: ANISOCYTOSIS SLIGHT; PLATELET COMMENT ADEQUATE
[2017-09-27 14:38] LABS: ALANINE AMINOTRANSFERASE 24 U/L (21-72); ALKALINE PHOSPHATASE 70 U/L (38-126); ANION GAP 8 (5-19); ASPARTATE AMINO TRANSFERASE 17 U/L (17-59); BILIRUBIN,DIRECT 0.6 mg/dL (0.0-0.4); BILIRUBIN,TOTAL 0.8 mg/dL (0.2-1.3); BLOOD UREA NITROGEN 23 mg/dL (7-20); CALCIUM 8.9 mg/dL (8.4-10.2); CARBON DIOXIDE 33 mmol/L (22-30); CHLORIDE 97 mmol/L (98-107); CREATINE KINASE 37 U/L (55-170); GLUCOSE 187 mg/dL (75-110); POTASSIUM 3.2 mmol/L (3.6-5.0); SODIUM 138.3 mmol/L (137-145)
[2017-09-27 14:46] LABS: CREATINE KINASE MB 1.02 ng/mL (<4.55)
[2017-09-27 14:50] LABS: TROPONIN I 0.355 ng/mL
--- NOTE | 2017-09-27 16:54 | ER Document Report ---
ED Respiratory Problem <TERRENCE MAX - Last Filed: 09/27/17 19:46> - General Mode of Arrival: Medic Information source: Patient TRAVEL OUTSIDE OF THE [place] IN LAST 30 DAYS: No <SUGAR UNDERWOOD - Last Filed: 09/29/17 08:19> - General Chief Complaint: Shortness Of Breath Stated Complaint: DIFFICULTY BREATHING Time Seen by Provider: 09/27/17 13:49 Notes: Patient is a 56-year-old male with a history of COPD who presents to the ER today for shortness of breath by ambulance. Patient states he has had a cough for a little over a week that has been worsening. He admits to fevers and chills at home but does not know how high it is gotten as he did not take his temperature. Patient also does not go to the doctor has no primary care provider. He denies any chest pain, nausea or vomiting. (SUGAR UNDERWOOD) - Related Data Allergies/Adverse Reactions: No Known Allergies Allergy (Unverified 07/17/17 10:55) Past Medical History - General Information source: Patient - Social History Smoking Status: Current Some Day Smoker Family History: Reviewed & Not Pertinent - Past Medical History Cardiac Medical History: Reports: Hx Hypertension Denies: Hx Atrial Fibrillation, Hx Congestive Heart Failure Pulmonary Medical History: Reports: Hx COPD Endocrine Medical History: Denies: Hx Diabetes Mellitus Type 1, Hx Diabetes Mellitus Type 2 Renal/ Medical History: Denies: Hx Peritoneal Dialysis Psychiatric Medical History: Reports: Hx Depression <SUGAR UNDERWOOD - Last Filed: 09/29/17 08:19> Review of Systems - Review of Systems Constitutional: See HPI EENT: No symptoms reported Cardiovascular: No symptoms reported Respiratory: See HPI Gastrointestinal: No symptoms reported Genitourinary: No symptoms reported Male Genitourinary: No symptoms reported Musculoskeletal: No symptoms reported Skin: No symptoms reported Hematologic/Lymphatic: No symptoms reported Neurological/Psychological: No symptoms reported <SUGAR UNDERWOOD - Last Filed: 09/29/17 08:19> Physical Exam <TERRENCE MAX - Last Filed: 09/27/17 19:46> <SUGAR UNDERWOOD - Last Filed: 09/29/17 08:19> - Vital signs Vitals: Temp 99.0 F 09/27/17 13:34 - Notes Notes: PHYSICAL EXAMINATION: GENERAL: Tachypneic, short of breath, on nonrebreather mask, in moderate acute distress. HEAD: Atraumatic, normocephalic. EYES: Pupils equal round and reactive to light, extraocular movements intact, sclera anicteric, conjunctiva are normal. ENT: ear canals without erythema or foreign body, TMs pearly sheikh with good bony landmarks, nares patent, oropharynx clear without exudates. Moist mucous membranes. Airway patent NECK: Normal range of motion, supple without lymphadenopathy LUNGS: Rhonchi to bilateral lower lobes, no wheezing HEART: Regular rate and rhythm without murmurs ABDOMEN: Soft, no tenderness. No guarding, no rebound BACK: no vertebral tenderness, normal ROM GI/: no CVA tenderness EXTREMITIES: Normal range of motion, no pitting edema. No cyanosis. NEUROLOGICAL: Cranial nerves grossly intact. Normal sensory/motor exams. PSYCH: Normal mood, normal affect. SKIN: Warm, Dry, normal turgor, no rashes or lesions noted (SUGAR UNDERWOOD) Course - Laboratory Result Diagrams: 09/27/17 13:50 09/27/17 13:50 <TERRENCE MAX - Last Filed: 09/27/17 19:46> - Laboratory Result Diagrams: 09/29/17 04:24 09/29/17 04:24 <SUGAR UNDERWOOD - Last Filed: 09/29/17 08:19> - Re-evaluation Re-evalutation: 09/27/17 19:46 Patient was signed out to me by day shift ELOISE Underwood who states that they had sent an ABG around 1835 due to progressive lethargy of this patient. It revealed respiratory acidosis despite Bipap for approx 3 hours. Decision was made at this time to proceed with intubation with the consent of his due to patients mental status. He was not arousable to verbal cues or to his name and upon my assessment required sternum rub for arousal and was not able to follow instructions. he was intubated with 7.5 tube and admission status switched to ICU. Discussed case updates with accepting physician Dr Hayes and material handler 1st shift Dr Howard. (TERRENCE MAX) 09/27/17 16:51 White blood cell count is 34.3 with a left shift, patient has right lower lobe pneumonia and possibly left sided pneumonia as well on chest x-ray today. Venous blood gas shows pH of 7.29 and a CO2 of 64. Patient was put on nasal cannula to try to get off the nonrebreather mask but failed. Patient's respiratory rate is in the 30s. Patient started on BiPAP, doing much better but is very tired and keeps falling asleep with me leave the room. He will wake up and speak to us and answer all questions completely alert while were in the room. Patient was given Tylenol in the ambulance for his fever. Patient admitted at this time for pneumonia. Troponin was elevated at 0.355, however trended down to 0.298 approximately 2 hours later. I believe his troponins were elevated due to oxygen demand on the heart, he was at 78% on room air when the ambulance picked him up. 09/27/17 16:53 Dr. Hayes agrees to admit at this time. (SUGAR UNDERWOOD) - Vital Signs Vital signs: Temp Pulse Resp BP Pulse Ox 98.6 F 69 14 139/98 H 97 09/29/17 07:52 09/29/17 08:16 09/29/17 06:00 09/29/17 05:52 09/29/17 06:00 - Laboratory Laboratory results interpreted by me: 09/27/17 09/27/17 09/27/17 13:50 13:50 13:50 WBC 34.3 H* RBC 4.05 L Hgb 12.3 L RDW 14.3 H Seg Neuts % (Manual) 96 H Band Neutrophils % 1 L Lymphocytes % (Manual) 1 L Monocytes % (Manual) 2 L Abs Neuts (Manual) 33.3 H Abs Lymphs (Manual) 0.3 L VBG pH 7.29 L VBG pCO2 65.4 H* Potassium 3.2 L Chloride 97 L Carbon Dioxide 33 H BUN 23 H Glucose 187 H Direct Bilirubin 0.6 H Creatine Kinase 37 L Total Protein 6.0 L Albumin 3.0 L Procedures - Intubation Orotracheal Time of Intubation: 19:35 Airway evaluation: Normal anatomy, Obese Mallampati Classification: Class 2 Medications: Etomidate, Other - Rocuronium Intubation method: Orotracheal Blade type: Isabella Blade size: 3 Equipment used: Glidescope ETT size: 7.5 ETT secured at: Lips ETT secured at (cm): 22 Breath Sounds after Intubation: Equal End tidal CO2 confirmed: Yes Ventilator settings: CMV Post Intubation Xray: Yes Intubation Complications: No complications <TERRENCE MAX - Last Filed: 09/27/17 19:46> Critical Care Note - Critical Care Note Total time excluding time spent on procedures (mins): 45 - 45___ minutes spent in critical care time with patient, consulted with attending, speaking with family, placing orders and evaluating tests and labs. <SUGAR UNDERWOOD - Last Filed: 09/29/17 08:19> Discharge <TERRENCE MAX - Last Filed: 09/27/17 19:46> - Discharge Admitting Provider: Hospitalist - [place] Unit Admitted: [facility] <SUGAR UNDERWOOD - Last Filed: 09/29/17 08:19> - Discharge Clinical Impression: Bilateral pneumonia Qualifiers: Pneumonia type: due to unspecified organism Lung location: unspecified part of lung Qualified Code(s): J18.9 - Pneumonia, unspecified organism Leukocytosis Qualifiers: Leukocytosis type: unspecified Qualified Code(s): D72.829 - Elevated white blood cell count, unspecified Condition: Stable Disposition: ADMITTED INPATIENT
[2017-09-27] MEDS ORDERED: ONDANSETRON 4 MG TAB.RAPDIS PO PRN (18:35)
[2017-09-27] MEDS ORDERED: POTASSI CL 20 MEQ/NS 1L 1,000 ML IV PRN (18:35)
[2017-09-27] MEDS ORDERED: ONDANSETRON HCL INJ/PF 4 MG/2 ML SDV IV PRN (18:35)
--- NOTE | 2017-09-27 18:41 | EKG REPORT ---
SEVERITY:- BORDERLINE ECG - SINUS RHYTHM PROBABLE LEFT ATRIAL ABNORMALITY BORDERLINE T WAVE ABNORMALITIES : Confirmed by: Reno eLmon MD 27-Sep-2017 18:41:00
[2017-09-27] MEDS ORDERED: VANCOMYCIN HCL 0 MG in DEXTROSE 5%-WATER 250 ML IV NR (18:45)
[2017-09-27 18:55] LABS: ARTERIAL BLOOD BASE EXCESS 0 mmol/L; ARTERIAL BLOOD H2CO3 2.94 mmol/L (1.05-1.35); ARTERIAL BLOOD HCO3 31.9 mmol/L (20-26); ARTERIAL BLOOD O2 SATURATION 98.4 % (94-98); ARTERIAL BLOOD PO2 164.2 mmHg (80-100); ARTERIAL BLOOD TOTAL CO2 34.9 mmol/L (23-27)
--- NOTE | 2017-09-27 18:55 | PDOC H&P ---
History of Present Illness Admission Date/PCP: 09/27/17 17:28 No PCP, goes to urgent care as needed. History of Present Illness: KAMERON TRUJILLO is a 56 year old male with a past medical history of Hypertension BPH Insomnia Depression Nicotine dependence Outpatient medications include fluoxetine 20 mg daily Lisinopril 40 mg daily Meloxicam S a day Trazodone 150 many gram at bedtime Singulair 10 mg daily Hydrochlorothiazide 25 mg daily Flomax 0.4 mg daily Nicotine dependence He was recently admitted to this hospital in July with a COPD exacerbation atrial fibrillation with RVR in the setting of COPD exacerbation which was treated with rate control measures and converted to sinus rhythm with digoxin. No history of TIA stroke or myocardial infarction. Echocardiogram in July showed diastolic dysfunction. Brought in by EMS to the emergency room today with shortness of breath and hypoxia. He has been having a cough with shortness of breath for the past 2 3 days. He was satting 78% on room air when EMS found him. He was treated with nebs steroids and Rocephin and azithromycin and placed on BiPAP in the emergency room. X-ray shows a right lower lobe infiltrate. EKG shows normal sinus rhythm. He has significant leukocytosis. He is drowsy but arouses briefly to verbal commands. VBG shows hypercapnia. I have ordered a stat ABG and this is pending. His is at the bedside her name is Tiffany and her phone number is [phone]. She reports that he has been more depressed lately and is wondering if his Prozac needs to be changed. Past Medical History Cardiac Medical History: Reports: Hypertension Denies: Atrial Fibrillation, Congestive Heart Failure Pulmonary Medical History: Reports: Chronic Obstructive Pulmonary Disease (COPD) Endocrine Medical History: Denies: Diabetes Mellitus Type 1, Diabetes Mellitus Type 2 Psychiatric Medical History: Reports: Depression Social History Smoking Status: Current Some Day Smoker Frequency of Alcohol Use: None Family History Family History: Hypertension Parental Family History Reviewed: Yes Children Family History Reviewed: Yes Sibling(s) Family History Reviewed.: Yes Medication/Allergy Home Medications: Citalopram Hydrobromide [Celexa 20 mg Tablet] 20 mg PO DAILY 09/27/17 Furosemide [Lasix 20 mg Tablet] 20 mg PO DAILY 09/27/17 Hydrochlorothiazide [Hydrodiuril 25 mg Tablet] 25 mg PO DAILY 09/27/17 Meloxicam [Mobic] 7.5 mg PO BID 09/27/17 Montelukast Sodium [Singulair 10 mg Tablet] 10 mg PO QHS 09/27/17 Tamsulosin HCl [Flomax 0.4 mg Cap.sr] 0.4 mg PO DAILY 09/27/17 Trazodone HCl [Desyrel] 150 mg PO QHS 09/27/17 Allergies/Adverse Reactions: No Known Allergies Allergy (Unverified 07/17/17 10:55) Review of Systems ROS unobtainable: Due to mental status Physical Exam Vital Signs: Temp Pulse Resp BP Pulse Ox 99.0 F 21 H 112/62 95 09/27/17 13:34 09/27/17 18:01 09/27/17 18:01 09/27/17 18:01 General appearance: PRESENT: other - Somnolent on BiPAP. Head exam: PRESENT: atraumatic, normocephalic Eye exam: PRESENT: conjunctiva pink, PERRLA. ABSENT: scleral icterus Mouth exam: PRESENT: neck supple Respiratory exam: PRESENT: accessory muscle use, rhonchi, symmetrical Cardiovascular exam: PRESENT: RRR GI/Abdominal exam: PRESENT: normal bowel sounds, soft. ABSENT: tenderness Rectal exam: PRESENT: deferred Extremities exam: ABSENT: calf tenderness, pedal edema Results Impressions: Chest X-Ray 09/27/17 13:34 IMPRESSION: Right lower lobe pneumonia. Cannot exclude loop minimal left lower lobe pneumonia. Assessment & Plan - Diagnosis (1) Bilateral pneumonia Qualifiers: Pneumonia type: due to unspecified organism Lung location: unspecified part of lung Qualified Code(s): J18.9 - Pneumonia, unspecified organism Is this a current diagnosis for this admission?: Yes Plan: Antibiotics, follow up on blood cultures Sputum cultures. Bipap, Nebs, steroids, supportive care (2) Leukocytosis Qualifiers: Leukocytosis type: unspecified Qualified Code(s): D72.829 - Elevated white blood cell count, unspecified Is this a current diagnosis for this admission?: Yes Plan: Due to pneumonia (3) COPD exacerbation Is this a current diagnosis for this admission?: Yes Plan: above (4) Depression Is this a current diagnosis for this admission?: Yes (6) Hypotension Is this a current diagnosis for this admission?: Yes Plan: Hold BP meds, gentle IV fluids (7) Insomnia Is this a current diagnosis for this admission?: Yes (8) Acute hypercapnic respiratory failure Is this a current diagnosis for this admission?: Yes Plan: He may have a component of DENA. Continue BiPAP. Recheck ABG stat. - Time Time Spent: Greater than 70 Minutes - Inpatient Certification Medical Necessity: Need Close Monitoring Due to Risk of Patient Decompensation, Need for Nebulizer Therapy and Monitoring of Response, Risk of Complication if Not Cared For in Hospital
[2017-09-27 18:59] LABS: ARTERIAL BLOOD FIO2 85%; ARTERIAL BLOOD PCO2 97.8 mmHg (35-45); ARTERIAL BLOOD PH 7.13 (7.35-7.45)
[2017-09-27] MEDS ORDERED: NALOXONE HCL INJ/PF 0.4 MG/1 ML SDV IV ONE (19:00)
[2017-09-27] MEDS ORDERED: ROCURONIUM BROMIDE INJ 50 MG/5 ML VIAL IV ONE (19:04)
[2017-09-27] MEDS ORDERED: ETOMIDATE INJ/PF 20 MG/10 ML SDV IV ONE ×2 (19:04→19:06)
[2017-09-27] MEDS ORDERED: LEVOFLOXACIN 750 MG/D5W RTU 750 MG/150 ML RTUPB IV ONE (19:30)
[2017-09-27] MEDS ORDERED: METHYLPREDNISOLONE INJ 40 MG/1 ML SDV IV ONE (19:30)
[2017-09-27] MEDS ORDERED: TAMSULOSIN HCL 0.4 MG CAP.SR.24H PO ONE (19:30)
[2017-09-27] MEDS ORDERED: MIDAZOLAM HCL 50 MG/100 ML RTUINJ IV ONE (19:33)
[2017-09-27] MEDS: MIDAZOLAM HCL 50 MG/100 ML RTUINJ IV PRN (19:45)
[2017-09-27] MEDS ORDERED: PROPOFOL 100 ML IV ONE (19:56)
[2017-09-27 19:58] LABS: INTERNATIONAL RATION (INR) 1.08; PARTIAL THROMBOPLASTIN TIME 30.5 SEC (23.5-35.8); PROTHROMBIN TIME 14.8 SEC (11.4-15.4)
[2017-09-27] MEDS: PROPOFOL 100 ML IV PRN (20:08)
[2017-09-27 20:17] LABS: CREATINE KINASE MB 0.95 ng/mL (<4.55)
[2017-09-27 20:24] LABS: TROPONIN I 0.166 ng/mL
--- NOTE | 2017-09-27 20:32 | RADIOLOGY REPORT (SQ) ---
EXAM DESCRIPTION: CHEST SINGLE VIEW COMPLETED DATE/TIME: 09/27/2017 8:23 pm REASON FOR STUDY: s/p intubation COMPARISON: 09/27/2017 EXAM PARAMETERS: NUMBER OF VIEWS: One view. TECHNIQUE: Single frontal radiographic view of the chest acquired. RADIATION DOSE: NA LIMITATIONS: None. FINDINGS: LUNGS AND PLEURA: Stable right greater than left lower lobe airspace disease. No definite pleural effusion or pneumothorax. MEDIASTINUM AND HILAR STRUCTURES: All in size and contour per HEART AND VASCULAR STRUCTURES: Stable. BONES: No acute findings. HARDWARE: Interval placement of endotracheal tube and nasogastric tube in satisfactory position. OTHER: No other significant finding. IMPRESSION: SATISFACTORY PLACEMENT OF NASOGASTRIC TUBE AND ENDOTRACHEAL TUBE WITHOUT COMPLICATION. STABLE AIRSPACE DISEASE. TECHNICAL DOCUMENTATION: JOB ID: [id number] [employer]- All Rights Reserved Reading location - IP/workstation name: [email or web address]
[2017-09-27] MEDS ORDERED: ASPIRIN 81 MG TABLET, CHEWABLE NG ONE (20:45)
[2017-09-27] MEDS ORDERED: VANCOMYCIN HCL INJ 1000 MG VIAL IV PRN (21:35)
[2017-09-27] MEDS ORDERED: VANCOMYCIN HCL 2,000 MG in DEXTROSE 5%-WATER 500 ML IV ONE (21:45)
[2017-09-27 21:52] LABS: ARTERIAL BLOOD BASE EXCESS -1.1 mmol/L; ARTERIAL BLOOD FIO2 70%; ARTERIAL BLOOD H2CO3 1.95 mmol/L (1.05-1.35); ARTERIAL BLOOD HCO3 27.5 mmol/L (20-26); ARTERIAL BLOOD O2 SATURATION 81.1 % (94-98); ARTERIAL BLOOD PCO2 64.7 mmHg (35-45); ARTERIAL BLOOD PH 7.25 (7.35-7.45); ARTERIAL BLOOD PO2 53.2 mmHg (80-100); ARTERIAL BLOOD TOTAL CO2 29.5 mmol/L (23-27)
[2017-09-28 01:22] LABS: CREATINE KINASE MB 1.43 ng/mL (<4.55)
[2017-09-28 01:27] LABS: TROPONIN I 0.081 ng/mL
[2017-09-28] MEDS: IPRATROPIUM/ALBUTEROL 0.5-2.5 MG/3 ML AMPUL NEB SCH ×4 (02:06→20:24)
[2017-09-28] MEDS: MONTELUKAST SODIUM 10 MG TABLET PO SCH ×2 (02:17→22:10)
[2017-09-28] MEDS: PANTOPRAZOLE SODIUM 40 MG VIAL IV SCH ×3 (02:17→22:10)
[2017-09-28] MEDS: METHYLPREDNISOLONE INJ 40 MG/1 ML SDV IV SCH ×3 (03:05→18:15)
[2017-09-28] MEDS: PROPOFOL 100 ML IV PRN ×4 (03:06→19:55)
[2017-09-28 06:14] LABS: ARTERIAL BLOOD FIO2 70%; ARTERIAL BLOOD H2CO3 1.58 mmol/L (1.05-1.35); ARTERIAL BLOOD HCO3 29.3 mmol/L (20-26); ARTERIAL BLOOD O2 SATURATION 97.9 % (94-98); ARTERIAL BLOOD PCO2 52.4 mmHg (35-45); ARTERIAL BLOOD PH 7.37 (7.35-7.45); ARTERIAL BLOOD PO2 112.3 mmHg (80-100); ARTERIAL BLOOD TOTAL CO2 30.9 mmol/L (23-27)
[2017-09-28] MEDS: MIDAZOLAM HCL 50 MG/100 ML RTUINJ IV PRN ×2 (06:20→13:49)
[2017-09-28 07:57] LABS: HEMATOCRIT 33.6 % (37.9-51.0); HEMOGLOBIN 11.1 g/dL (13.5-17.0); MEAN CORPUSCULAR HEMOGLOBIN 30.9 pg (27.0-33.4); MEAN CORPUSCULAR HGB CONC 33.1 g/dL (32.0-36.0); MEAN CORPUSCULAR VOLUME 94 fl (80-97); PLATELET COUNT 360 10^3/uL (150-450); RED BLOOD COUNT 3.59 10^6/uL (4.35-5.55); RED CELL DISTRIBUTION WIDTH 14.3 % (11.5-14.0); WHITE BLOOD COUNT 27.1 10^3/uL (4.0-10.5)
[2017-09-28 07:59] LABS: ALANINE AMINOTRANSFERASE 29 U/L (21-72); ALBUMIN 2.7 g/dL (3.5-5.0); ALKALINE PHOSPHATASE 62 U/L (38-126); ANION GAP 5 (5-19); ASPARTATE AMINO TRANSFERASE 12 U/L (17-59); BILIRUBIN,DIRECT 0.2 mg/dL (0.0-0.4); BILIRUBIN,TOTAL 0.2 mg/dL (0.2-1.3); BLOOD UREA NITROGEN 22 mg/dL (7-20); CALCIUM 8.4 mg/dL (8.4-10.2); CARBON DIOXIDE 35 mmol/L (22-30); CHLORIDE 99 mmol/L (98-107); CHOLESTEROL 128.46 mg/dL (0-200); GLUCOSE 121 mg/dL (75-110); SODIUM 138.6 mmol/L (137-145); TOTAL PROTEIN 5.1 g/dL (6.3-8.2); TRIGLYCERIDES 92 mg/dL (<150)
[2017-09-28 08:08] LABS: CREATINE KINASE MB 3.51 ng/mL (<4.55); TROPONIN I 0.068 ng/mL
[2017-09-28 08:09] LABS: DIRECT LDL 65 mg/dL (<100)
[2017-09-28 08:11] LABS: INTERNATIONAL RATION (INR) 1.16; PROTHROMBIN TIME 15.6 SEC (11.4-15.4)
[2017-09-28 08:14] LABS: POTASSIUM 4.3 mmol/L (3.6-5.0)
[2017-09-28 08:16] LABS: ABSOLUTE LYMPHOCYTES# (MANUAL) 0.8 10^3/uL (0.5-4.7); ABSOLUTE MONOCYTES # (MANUAL) 0.5 10^3/uL (0.1-1.4); ABSOLUTE NEUTROPHILS# (MANUAL) 25.7 10^3/uL (1.7-8.2); BASOPHILS % (MANUAL) 0 % (0-2); EOSINOPHILS % (MANUAL) 0 % (0-6); LYMPHOCYTES % (MANUAL) 3 % (13-45); MONOCYTES % (MANUAL) 2 % (3-13); SEGMENTED NEUTROPHILS % (MAN) 95 % (42-78); TOTAL CELLS COUNTED 100
[2017-09-28 08:18] LABS: ANISOCYTOSIS SLIGHT; PLATELET CLUMPS PRESENT; PLATELET COMMENT ADEQUATE; POLYCHROMASIA SLIGHT; TOXIC GRANULATION SLIGHT
[2017-09-28] MEDS ORDERED: PROPOFOL 100 ML IV ONE (08:58)
[2017-09-28] MEDS ORDERED: CEFTRIAXONE 1 GM/D5W RTU 1 GM/50 ML RTUPB IV SCH (09:00)
[2017-09-28] MEDS: NORMAL SALINE 1000 ML 1,000 ML IV PRN (09:09)
[2017-09-28] MEDS: LEVOFLOXACIN 750 MG/D5W RTU 750 MG/150 ML RTUPB IV SCH (09:09)
[2017-09-28] MEDS: ASPIRIN 81 MG TABLET, CHEWABLE NG SCH (09:10)
[2017-09-28] MEDS: ENOXAPARIN SODIUM INJ 40 MG/0.4 ML DISP.SYRIN SUBCUT SCH (09:11)
[2017-09-28] MEDS: CITALOPRAM HYDROBROMIDE 20 MG TABLET PO SCH (09:11)
[2017-09-28] MEDS: TAMSULOSIN HCL 0.4 MG CAP.SR.24H PO SCH (09:12)
[2017-09-28] MEDS ORDERED: GLUCAGON,HUMAN RECOMB 1 MG INJ IM PRN (10:59)
[2017-09-28] MEDS ORDERED: DEXTROSE 40% GEL 15 GM TUBE PO PRN (10:59)
[2017-09-28] MEDS ORDERED: DEXTROSE 50%-WATER SYRINGE 12.5 GM/25 ML DOSE IV PRN (10:59)
[2017-09-28] MEDS ORDERED: DEXTROSE 50%-WATER SYRINGE 25 GM/50 ML DOSE IV PRN (10:59)
[2017-09-28] MEDS ORDERED: DEXTROSE 40% GEL 15 GM TUBE X 2 PO PRN (10:59)
[2017-09-28] MEDS: CEFTRIAXONE SODIUM 1,000 MG in NORMAL SALINE 100 ML IV SCH (11:56)
--- NOTE | 2017-09-28 13:19 | PDOC PROGRESS REPORT ---
Subjective Progress Note for:: 09/28/17 Reason For Visit: SEPSIS,ACUTE HYPERCAPNIC RESPIRATORY FAILURE 56-year-old gentleman with a history of COPD and ongoing tobacco use who presented to the hospital with acute hypoxic and hypercapnic respiratory failure and pneumonia. He was intubated. Currently remains sedated on the vent. Leukocytosis is improving. Urine output remains good. Not on pressors Physical Exam Vital Signs: Temp Pulse Resp BP Pulse Ox 97.0 F 71 16 135/84 H 96 09/28/17 12:00 09/28/17 12:00 09/28/17 12:00 09/28/17 12:00 09/28/17 12:52 Intake & Output 09/27/17 09/28/17 09/29/17 06:59 06:59 06:59 Intake Total 974 Output Total 25 500 Balance 949 -500 Weight 108.2 kg General appearance: PRESENT: obese Head exam: PRESENT: atraumatic, normocephalic Eye exam: PRESENT: PERRLA. ABSENT: scleral icterus Ear exam: PRESENT: normal external ear exam Mouth exam: PRESENT: neck supple Neck exam: ABSENT: tracheal deviation Respiratory exam: PRESENT: rhonchi, symmetrical, unlabored Cardiovascular exam: PRESENT: RRR GI/Abdominal exam: PRESENT: normal bowel sounds, soft. ABSENT: tenderness Rectal exam: PRESENT: deferred Extremities exam: ABSENT: calf tenderness, pedal edema - Sedated on vent Skin exam: ABSENT: rash Results Laboratory Results: 09/28/17 07:28 09/28/17 07:28 09/27/17 09/27/17 09/27/17 18:33 19:20 21:40 WBC RBC Hgb Hct MCV MCH MCHC RDW Plt Count Seg Neutrophils % Lymphocytes % Monocytes % Eosinophils % Basophils % Absolute Neutrophils Absolute Lymphocytes Absolute Monocytes Absolute Eosinophils Absolute Basophils Carbonic Acid 2.94 H 1.95 H HCO3/H2CO3 Ratio 10:1 14:1 ABG pH 7.13 L* 7.25 L ABG pCO2 97.8 H* 64.7 H ABG pO2 164.2 H 53.2 L ABG HCO3 31.9 H 27.5 H ABG O2 Saturation 98.4 H 81.1 L ABG Base Excess 0 -1.1 FiO2 85% 70% Sodium Potassium Chloride Carbon Dioxide Anion Gap BUN Creatinine Est GFR ( Amer) Est GFR (Non-Af Amer) Glucose Calcium Phosphorus Magnesium 2.7 H Total Bilirubin AST ALT Alkaline Phosphatase Total Protein Albumin Triglycerides Cholesterol LDL Cholesterol Direct VLDL Cholesterol HDL Cholesterol TSH 09/28/17 09/28/17 09/28/17 05:45 07:28 07:28 WBC 27.1 H RBC 3.59 L Hgb 11.1 L Hct 33.6 L MCV 94 MCH 30.9 MCHC 33.1 RDW 14.3 H Plt Count 360 Seg Neutrophils % Not Reportable Lymphocytes % Not Reportable Monocytes % Not Reportable Eosinophils % Not Reportable Basophils % Not Reportable Absolute Neutrophils Not Reportable Absolute Lymphocytes Not Reportable Absolute Monocytes Not Reportable Absolute Eosinophils Not Reportable Absolute Basophils Not Reportable Carbonic Acid 1.58 H HCO3/H2CO3 Ratio 18:1 ABG pH 7.37 ABG pCO2 52.4 H ABG pO2 112.3 H ABG HCO3 29.3 H ABG O2 Saturation 97.9 ABG Base Excess 3.0 FiO2 70% Sodium 138.6 Potassium 4.3 D Chloride 99 Carbon Dioxide 35 H Anion Gap 5 BUN 22 H Creatinine 0.67 Est GFR ( Amer) > 60 Est GFR (Non-Af Amer) > 60 Glucose 121 H Calcium 8.4 Phosphorus 3.0 Magnesium 2.4 H Total Bilirubin 0.2 AST 12 L ALT 29 Alkaline Phosphatase 62 Total Protein 5.1 L Albumin 2.7 L Triglycerides 92 Cholesterol 128.46 LDL Cholesterol Direct 65 VLDL Cholesterol 18.0 HDL Cholesterol 32 L TSH 09/28/17 07:28 WBC RBC Hgb Hct MCV MCH MCHC RDW Plt Count Seg Neutrophils % Lymphocytes % Monocytes % Eosinophils % Basophils % Absolute Neutrophils Absolute Lymphocytes Absolute Monocytes Absolute Eosinophils Absolute Basophils Carbonic Acid HCO3/H2CO3 Ratio ABG pH ABG pCO2 ABG pO2 ABG HCO3 ABG O2 Saturation ABG Base Excess FiO2 Sodium Potassium Chloride Carbon Dioxide Anion Gap BUN Creatinine Est GFR ( Amer) Est GFR (Non-Af Amer) Glucose Calcium Phosphorus Magnesium Total Bilirubin AST ALT Alkaline Phosphatase Total Protein Albumin Triglycerides Cholesterol LDL Cholesterol Direct VLDL Cholesterol HDL Cholesterol TSH 0.09 L 09/27/17 09/27/17 09/28/17 19:20 19:20 00:36 CK-MB (CK-2) 0.95 1.43 Troponin I 0.166 0.081 NT-Pro-B Natriuret Pep 851 09/28/17 07:28 CK-MB (CK-2) 3.51 Troponin I 0.068 NT-Pro-B Natriuret Pep 395 Impressions: Chest X-Ray 09/27/17 19:52 IMPRESSION: SATISFACTORY PLACEMENT OF NASOGASTRIC TUBE AND ENDOTRACHEAL TUBE WITHOUT COMPLICATION. STABLE AIRSPACE DISEASE. Assessment & Plan - Diagnosis (1) Bilateral pneumonia Qualifiers: Pneumonia type: due to unspecified organism Lung location: unspecified part of lung Qualified Code(s): J18.9 - Pneumonia, unspecified organism Is this a current diagnosis for this admission?: Yes Plan: Day 2 of antibiotics, follow up on blood cultures Sputum cultures. Bipap, Nebs, steroids, supportive care (2) Leukocytosis Qualifiers: Leukocytosis type: unspecified Qualified Code(s): D72.829 - Elevated white blood cell count, unspecified Is this a current diagnosis for this admission?: Yes Plan: Due to pneumonia (3) COPD exacerbation Is this a current diagnosis for this admission?: Yes Plan: above (4) Depression Is this a current diagnosis for this admission?: Yes (5) History of nicotine use Is this a current diagnosis for this admission?: Yes (6) Hypotension Is this a current diagnosis for this admission?: Yes Plan: Improved, continue to hold BP meds, continue IV fluids. Monitor closely (7) Insomnia Is this a current diagnosis for this admission?: Yes (8) Acute hypercapnic respiratory failure Is this a current diagnosis for this admission?: Yes Plan: Cont vent support. - Time Time Spent with patient: 35 or more minutes Total Critical Time (Minutes): 45
[2017-09-28] MEDS: VANCOMYCIN HCL 1,250 MG in DEXTROSE 5%-WATER 250 ML IV SCH ×2 (13:48→22:10)
[2017-09-28] MEDS: ACETYLCYSTEINE 10% NEB 400 MG/4 ML VIAL NEB SCH ×2 (15:09→20:25)
--- NOTE | 2017-09-28 19:15 | PDOC CONSULTATION ---
Consultation Consult Date: 09/28/17 Attending physician:: DESEAN MILLER Consult reason:: acute/chronic resp failure/pna History of Present Illness Admission Date/PCP: 09/27/17 17:28 History of Present Illness: KAMERON TRUJILLO is a 56 year old male with a past medical history of He was recently admitted to this hospital in July with a COPD exacerbation atrial fibrillation with RVR in the setting of COPD exacerbation which was treated with rate control measures and converted to sinus rhythm with digoxin.Brought in by EMS to the emergency room today with shortness of breath and hypoxia. He has been having a cough with shortness of breath for the past 2 3 days. He was satting 78% on room air when EMS found him. X-ray shows a right lower lobe infiltrate.;he failed attempts at bipap Patient currently intubated and sedated Past Medical History Cardiac Medical History: Reports: Hypertension Denies: Atrial Fibrillation, Congestive Heart Failure Pulmonary Medical History: Reports: Chronic Obstructive Pulmonary Disease (COPD) Endocrine Medical History: Denies: Diabetes Mellitus Type 1, Diabetes Mellitus Type 2 Psychiatric Medical History: Reports: Depression Social History Information Source[facility] Smoking Status: Current Every Day Smoker Frequency of Alcohol Use: Occasional Hx Recreational Drug Use: No Drugs: None Hx Prescription Drug Abuse: No - Advance Directive Resuscitation Status: Full Code Family History Family History: Hypertension Parental Family History Reviewed: No Children Family History Reviewed: No Sibling(s) Family History Reviewed.: No Medication/Allergy Home Medications: Citalopram Hydrobromide [Celexa 20 mg Tablet] 20 mg PO DAILY 09/27/17 Furosemide [Lasix 20 mg Tablet] 20 mg PO DAILY 09/27/17 Hydrochlorothiazide [Hydrodiuril 25 mg Tablet] 25 mg PO DAILY 09/27/17 Meloxicam [Mobic] 7.5 mg PO BID 09/27/17 Montelukast Sodium [Singulair 10 mg Tablet] 10 mg PO QHS 09/27/17 Tamsulosin HCl [Flomax 0.4 mg Cap.sr] 0.4 mg PO DAILY 09/27/17 Trazodone HCl [Desyrel] 150 mg PO QHS 09/27/17 Allergies/Adverse Reactions: No Known Allergies Allergy (Unverified 07/17/17 10:55) Review of Systems ROS unobtainable: Due to endotracheal tube Physical Exam Vital Signs: Temp Pulse Resp BP Pulse Ox 97.3 F 64 15 111/75 97 09/28/17 08:00 09/28/17 08:35 09/28/17 08:00 09/28/17 08:00 09/28/17 08:00 Intake & Output 09/27/17 09/28/17 09/29/17 06:59 06:59 06:59 Intake Total 974 Output Total 25 80 Balance 949 -80 Weight 108.2 kg General appearance: PRESENT: no acute distress, disheveled, obese. ABSENT: cooperative Head exam: PRESENT: atraumatic, normocephalic Eye exam: PRESENT: conjunctiva pale. ABSENT: EOMI, nystagmus, periorbital swelling, scleral icterus Mouth exam: PRESENT: dry mucosa, neck supple, tongue midline, other - ET tube Neck exam: ABSENT: carotid bruit, JVD, lymphadenopathy, thyromegaly, tracheal deviation, tracheostomy Respiratory exam: PRESENT: decreased breath sounds, prolonged expiratory phas, rales, rhonchi, symmetrical, unlabored, wheezes. ABSENT: retraction, stridor, tachypnea Cardiovascular exam: PRESENT: RRR, +S1, +S2, tachycardia Pulses: PRESENT: normal radial pulses GI/Abdominal exam: PRESENT: diminished bowel sounds, soft Extremities exam: ABSENT: clubbing, joint swelling Musculoskeletal exam: ABSENT: ambulatory, deformity, dislocation Neurological exam: ABSENT: awake, oriented to person Skin exam: PRESENT: dry, warm Results Laboratory Results: 09/28/17 07:28 09/28/17 07:28 09/27/17 09/27/17 09/27/17 18:33 19:20 21:40 WBC RBC Hgb Hct MCV MCH MCHC RDW Plt Count Seg Neutrophils % Lymphocytes % Monocytes % Eosinophils % Basophils % Absolute Neutrophils Absolute Lymphocytes Absolute Monocytes Absolute Eosinophils Absolute Basophils Carbonic Acid 2.94 H 1.95 H HCO3/H2CO3 Ratio 10:1 14:1 ABG pH 7.13 L* 7.25 L ABG pCO2 97.8 H* 64.7 H ABG pO2 164.2 H 53.2 L ABG HCO3 31.9 H 27.5 H ABG O2 Saturation 98.4 H 81.1 L ABG Base Excess 0 -1.1 FiO2 85% 70% Sodium Potassium Chloride Carbon Dioxide Anion Gap BUN Creatinine Est GFR ( Amer) Est GFR (Non-Af Amer) Glucose Calcium Phosphorus Magnesium 2.7 H Total Bilirubin AST ALT Alkaline Phosphatase Total Protein Albumin Triglycerides Cholesterol LDL Cholesterol Direct VLDL Cholesterol HDL Cholesterol TSH 09/28/17 09/28/17 09/28/17 05:45 07:28 07:28 WBC 27.1 H RBC 3.59 L Hgb 11.1 L Hct 33.6 L MCV 94 MCH 30.9 MCHC 33.1 RDW 14.3 H Plt Count 360 Seg Neutrophils % Not Reportable Lymphocytes % Not Reportable Monocytes % Not Reportable Eosinophils % Not Reportable Basophils % Not Reportable Absolute Neutrophils Not Reportable Absolute Lymphocytes Not Reportable Absolute Monocytes Not Reportable Absolute Eosinophils Not Reportable Absolute Basophils Not Reportable Carbonic Acid 1.58 H HCO3/H2CO3 Ratio 18:1 ABG pH 7.37 ABG pCO2 52.4 H ABG pO2 112.3 H ABG HCO3 29.3 H ABG O2 Saturation 97.9 ABG Base Excess 3.0 FiO2 70% Sodium 138.6 Potassium 4.3 D Chloride 99 Carbon Dioxide 35 H Anion Gap 5 BUN 22 H Creatinine 0.67 Est GFR ( Amer) > 60 Est GFR (Non-Af Amer) > 60 Glucose 121 H Calcium 8.4 Phosphorus 3.0 Magnesium 2.4 H Total Bilirubin 0.2 AST 12 L ALT 29 Alkaline Phosphatase 62 Total Protein 5.1 L Albumin 2.7 L Triglycerides 92 Cholesterol 128.46 LDL Cholesterol Direct 65 VLDL Cholesterol 18.0 HDL Cholesterol 32 L TSH 09/28/17 07:28 WBC RBC Hgb Hct MCV MCH MCHC RDW Plt Count Seg Neutrophils % Lymphocytes % Monocytes % Eosinophils % Basophils % Absolute Neutrophils Absolute Lymphocytes Absolute Monocytes Absolute Eosinophils Absolute Basophils Carbonic Acid HCO3/H2CO3 Ratio ABG pH ABG pCO2 ABG pO2 ABG HCO3 ABG O2 Saturation ABG Base Excess FiO2 Sodium Potassium Chloride Carbon Dioxide Anion Gap BUN Creatinine Est GFR ( Amer) Est GFR (Non-Af Amer) Glucose Calcium Phosphorus Magnesium Total Bilirubin AST ALT Alkaline Phosphatase Total Protein Albumin Triglycerides Cholesterol LDL Cholesterol Direct VLDL Cholesterol HDL Cholesterol TSH 0.09 L 09/27/17 09/27/17 09/28/17 19:20 19:20 00:36 CK-MB (CK-2) 0.95 1.43 Troponin I 0.166 0.081 NT-Pro-B Natriuret Pep 851 09/28/17 07:28 CK-MB (CK-2) 3.51 Troponin I 0.068 NT-Pro-B Natriuret Pep 395 Impressions: Chest X-Ray 09/27/17 19:52 IMPRESSION: SATISFACTORY PLACEMENT OF NASOGASTRIC TUBE AND ENDOTRACHEAL TUBE WITHOUT COMPLICATION. STABLE AIRSPACE DISEASE. Assessment & Plan - Diagnosis (1) Acute hypercapnic respiratory failure Is this a current diagnosis for this admission?: Yes Plan: ventilate oxygenate as needed (2) COPD exacerbation Is this a current diagnosis for this admission?: Yes Plan: Generic Name Dose Route Start Last Admin Trade Name Freq PRN Reason Stop Dose Admin Acetylcysteine 400 mg 09/28/17 14:00 09/28/17 15:09 Mucomist 10% Neb 400 Mg/4 Ml Vial NEB 10/28/17 13:59 400 mg RTQ6 DOMENICA Methylprednisolone Sodium Succinate 40 mg 09/28/17 02:00 09/28/17 18:15 Solu-Medrol Inj/Pf 40 Mg/1 Ml Sdv IV 10/28/17 01:59 40 mg Q8A DOMENICA Albuterol/Ipratropium 3 ml 09/28/17 02:00 09/28/17 15:08 Duoneb 3 Ml Ampul NEB 10/28/17 01:59 3 ml RTQ6 DOMENICA - Time Total Critical Time (Minutes): 50
[2017-09-28 20:48] LABS: URINE AMPHETAMINES SCREEN NEGATIVE; URINE BARBITURATES SCREEN NEGATIVE; URINE COCAINE SCREEN NEGATIVE; URINE MARIJUANA (THC) SCREEN NEGATIVE; URINE METHADONE SCREEN NEGATIVE; URINE PHENCYCLIDINE SCREEN NEGATIVE
[2017-09-28 21:00] LABS: URINE BENZODIAZEPINES SCREEN UNCONFIRMED POSITIVE
[2017-09-29] MEDS: NORMAL SALINE 1000 ML 1,000 ML IV PRN ×2 (00:10→16:47)
[2017-09-29] MEDS: MIDAZOLAM HCL 50 MG/100 ML RTUINJ IV PRN ×2 (00:10→13:49)
[2017-09-29] MEDS: PROPOFOL 100 ML IV PRN ×7 (00:11→23:41)
[2017-09-29] MEDS: METHYLPREDNISOLONE INJ 40 MG/1 ML SDV IV SCH ×3 (01:30→17:56)
[2017-09-29] MEDS: ACETYLCYSTEINE 10% NEB 400 MG/4 ML VIAL NEB SCH ×4 (01:45→20:21)
[2017-09-29] MEDS: IPRATROPIUM/ALBUTEROL 0.5-2.5 MG/3 ML AMPUL NEB SCH ×4 (01:45→20:18)
[2017-09-29 04:52] LABS: HEMATOCRIT 35.7 % (37.9-51.0); HEMOGLOBIN 11.7 g/dL (13.5-17.0); MEAN CORPUSCULAR HEMOGLOBIN 30.7 pg (27.0-33.4); MEAN CORPUSCULAR HGB CONC 32.9 g/dL (32.0-36.0); MEAN CORPUSCULAR VOLUME 93 fl (80-97); PLATELET COUNT 378 10^3/uL (150-450); RED BLOOD COUNT 3.82 10^6/uL (4.35-5.55); RED CELL DISTRIBUTION WIDTH 14.3 % (11.5-14.0); WHITE BLOOD COUNT 21.9 10^3/uL (4.0-10.5)
[2017-09-29] MEDS: VANCOMYCIN HCL 1,250 MG in DEXTROSE 5%-WATER 250 ML IV SCH ×3 (05:07→21:54)
[2017-09-29 05:10] LABS: ALANINE AMINOTRANSFERASE 26 U/L (21-72); ALBUMIN 2.7 g/dL (3.5-5.0); ALKALINE PHOSPHATASE 62 U/L (38-126); ASPARTATE AMINO TRANSFERASE 9 U/L (17-59); BILIRUBIN,DIRECT 0.1 mg/dL (0.0-0.4); BILIRUBIN,TOTAL 0.1 mg/dL (0.2-1.3); BLOOD UREA NITROGEN 19 mg/dL (7-20); CARBON DIOXIDE 34 mmol/L (22-30); CHLORIDE 99 mmol/L (98-107); GLUCOSE 129 mg/dL (75-110); PHOSPHORUS 3.1 mg/dL (2.5-4.5); POTASSIUM 4.6 mmol/L (3.6-5.0); TOTAL PROTEIN 5.2 g/dL (6.3-8.2)
[2017-09-29 05:15] LABS: ANION GAP 5 (5-19); SODIUM 137.9 mmol/L (137-145)
[2017-09-29 05:21] LABS: ABSOLUTE MONOCYTES # (MANUAL) 0.2 10^3/uL (0.1-1.4); ABSOLUTE NEUTROPHILS# (MANUAL) 21.7 10^3/uL (1.7-8.2); BAND NEUTROPHILS % (MANUAL) 2 % (3-5); BASOPHILS % (MANUAL) 0 % (0-2); EOSINOPHILS % (MANUAL) 0 % (0-6); LYMPHOCYTES % (MANUAL) 0 % (13-45); MONOCYTES % (MANUAL) 1 % (3-13); SEGMENTED NEUTROPHILS % (MAN) 97 % (42-78); TOTAL CELLS COUNTED 100
[2017-09-29 05:22] LABS: ANISOCYTOSIS SLIGHT; PLATELET COMMENT ADEQUATE; POLYCHROMASIA SLIGHT
--- NOTE | 2017-09-29 08:28 | RADIOLOGY REPORT (SQ) ---
EXAM DESCRIPTION: CHEST SINGLE VIEW COMPLETED DATE/TIME: 09/29/2017 6:58 am REASON FOR STUDY: pna/resp fail COMPARISON: 09/27/2017 EXAM PARAMETERS: NUMBER OF VIEWS: One view TECHNIQUE: Single frontal radiograph of the chest. RADIATION DOSE: N/A LIMITATIONS: None. FINDINGS: TEMPORARY SUPPORT DEVICES:ETT in expected location. NG tube courses below the marilu-diaphr agm in to the stomach. LUNGS AND PLEURA: Basilar opacities improved. No effusions. No masses. No pneumothorax. MEDIASTINUM AND HILAR STRUCTURES: No masses. Contour normal. HEART AND VASCULAR STRUCTURES: Heart normal in size. normal vascularity. Aorta normal for age. BONES: No acute findings. OTHER: No other significant finding. IMPRESSION: Basilar opacities improved. SUPPORT DEVICE(S) IN EXPECTED LOCATIONS. TECHNICAL DOCUMENTATION: JOB ID: [id number] [employer]- All Rights Reserved Reading location - IP/workstation name: [email or web address]
[2017-09-29] MEDS: ASPIRIN 81 MG TABLET, CHEWABLE NG SCH (09:25)
[2017-09-29] MEDS: LEVOFLOXACIN 750 MG/D5W RTU 750 MG/150 ML RTUPB IV SCH (09:26)
[2017-09-29] MEDS: CITALOPRAM HYDROBROMIDE 20 MG TABLET PO SCH (09:26)
[2017-09-29] MEDS: ENOXAPARIN SODIUM INJ 40 MG/0.4 ML DISP.SYRIN SUBCUT SCH (09:27)
[2017-09-29] MEDS: PANTOPRAZOLE SODIUM 40 MG VIAL IV SCH ×2 (09:41→21:53)
[2017-09-29] MEDS: TAMSULOSIN HCL 0.4 MG CAP.SR.24H PO SCH (09:46)
[2017-09-29] MEDS: CEFTRIAXONE SODIUM 1,000 MG in NORMAL SALINE 100 ML IV SCH (12:33)
[2017-09-29] MEDS ORDERED: METOPROLOL TARTRATE 25 MG TABLET PO ONE (13:30)
[2017-09-29 14:08] LABS: VANCOMYCIN,TROUGH 11.7 ug/mL (5.0-20.0)
--- NOTE | 2017-09-29 15:48 | PDOC PROGRESS REPORT ---
Subjective Progress Note for:: 09/29/17 Reason For Visit: SEPSIS,ACUTE HYPERCAPNIC RESPIRATORY FAILURE 56-year-old gentleman with a history of COPD and ongoing tobacco use who presented to the hospital with acute hypoxic and hypercapnic respiratory failure and pneumonia for which he required intubation. Currently remains sedated on the vent. Leukocytosis is improving. Developed some urinary retention and required urinary catheter placed by urology on 09/28. Potential has resolved. He will be started on metoprolol for better blood pressure control. He will be started on tube feeds. He did not tolerate trial of wean well this morning. Continue antibiotics. Physical Exam Vital Signs: Temp Pulse Resp BP Pulse Ox 98.8 F 66 13 126/84 H 97 09/29/17 15:43 09/29/17 14:38 09/29/17 14:38 09/29/17 13:19 09/29/17 15:41 Intake & Output 09/28/17 09/29/17 09/30/17 06:59 06:59 06:59 Intake Total 974 2823 Output Total 25 1905 1225 Balance 949 918 -1225 Weight 108.2 kg 108.8 kg General appearance: PRESENT: obese Head exam: PRESENT: atraumatic, normocephalic Eye exam: PRESENT: PERRLA. ABSENT: scleral icterus Ear exam: PRESENT: normal external ear exam Mouth exam: PRESENT: neck supple Respiratory exam: PRESENT: rhonchi, symmetrical, unlabored Cardiovascular exam: PRESENT: RRR GI/Abdominal exam: PRESENT: normal bowel sounds, soft. ABSENT: tenderness Rectal exam: PRESENT: deferred Extremities exam: ABSENT: calf tenderness, pedal edema Skin exam: ABSENT: rash - sedated on vent Results Laboratory Results: 09/29/17 04:24 09/29/17 04:24 09/29/17 09/29/17 04:24 04:24 WBC 21.9 H RBC 3.82 L Hgb 11.7 L Hct 35.7 L MCV 93 MCH 30.7 MCHC 32.9 RDW 14.3 H Plt Count 378 Seg Neutrophils % Not Reportable Lymphocytes % Not Reportable Monocytes % Not Reportable Eosinophils % Not Reportable Basophils % Not Reportable Absolute Neutrophils Not Reportable Absolute Lymphocytes Not Reportable Absolute Monocytes Not Reportable Absolute Eosinophils Not Reportable Absolute Basophils Not Reportable Sodium 137.9 Potassium 4.6 Chloride 99 Carbon Dioxide 34 H Anion Gap 5 BUN 19 Creatinine 0.64 Est GFR ( Amer) > 60 Est GFR (Non-Af Amer) > 60 Glucose 129 H Calcium 9.0 Phosphorus 3.1 Magnesium 2.4 H Total Bilirubin 0.1 L AST 9 L ALT 26 Alkaline Phosphatase 62 Total Protein 5.2 L Albumin 2.7 L 09/27/17 09/27/17 09/28/17 19:20 19:20 00:36 CK-MB (CK-2) 0.95 1.43 Troponin I 0.166 0.081 NT-Pro-B Natriuret Pep 851 09/28/17 07:28 CK-MB (CK-2) 3.51 Troponin I 0.068 NT-Pro-B Natriuret Pep 395 Impressions: Chest X-Ray 09/29/17 06:00 IMPRESSION: Basilar opacities improved. SUPPORT DEVICE(S) IN EXPECTED LOCATIONS. Assessment & Plan - Diagnosis (1) Bilateral pneumonia Qualifiers: Pneumonia type: due to unspecified organism Lung location: unspecified part of lung Qualified Code(s): J18.9 - Pneumonia, unspecified organism Is this a current diagnosis for this admission?: Yes Plan: Day 2 of antibiotics, follow up on blood cultures Sputum cultures. Bipap, Nebs, steroids, supportive care (2) Leukocytosis Qualifiers: Leukocytosis type: unspecified Qualified Code(s): D72.829 - Elevated white blood cell count, unspecified Is this a current diagnosis for this admission?: Yes Plan: Due to pneumonia (3) COPD exacerbation Is this a current diagnosis for this admission?: Yes Plan: above. taper steroids (4) Depression Is this a current diagnosis for this admission?: Yes Plan: On Celexa. he will need a psych eval after extubation (5) History of nicotine use Is this a current diagnosis for this admission?: Yes (6) Hypotension Is this a current diagnosis for this admission?: Yes Plan: Due to pneumonia- resolved. (7) Insomnia Is this a current diagnosis for this admission?: Yes (8) Acute hypercapnic respiratory failure Is this a current diagnosis for this admission?: Yes Plan: Cont vent support. (9) Urinary retention Is this a current diagnosis for this admission?: Yes Plan: Maintain Chan, continue Flomax - Time Total Critical Time (Minutes): 45
[2017-09-29] MEDS: MONTELUKAST SODIUM 10 MG TABLET PO SCH (21:53)
[2017-09-29] MEDS: METOPROLOL TARTRATE 25 MG TABLET PO SCH (21:53)
[2017-09-30] MEDS: METHYLPREDNISOLONE INJ 40 MG/1 ML SDV IV SCH ×3 (02:04→17:01)
[2017-09-30] MEDS: IPRATROPIUM/ALBUTEROL 0.5-2.5 MG/3 ML AMPUL NEB SCH ×4 (02:07→19:47)
[2017-09-30] MEDS: ACETYLCYSTEINE 10% NEB 400 MG/4 ML VIAL NEB SCH ×4 (02:07→19:47)
[2017-09-30] MEDS: PROPOFOL 100 ML IV PRN ×6 (03:27→21:19)
[2017-09-30] MEDS: MIDAZOLAM HCL 50 MG/100 ML RTUINJ IV PRN ×2 (03:44→18:12)
[2017-09-30 04:21] LABS: HEMATOCRIT 37.7 % (37.9-51.0); HEMOGLOBIN 12.5 g/dL (13.5-17.0); MEAN CORPUSCULAR HEMOGLOBIN 30.7 pg (27.0-33.4); MEAN CORPUSCULAR HGB CONC 33.1 g/dL (32.0-36.0); MEAN CORPUSCULAR VOLUME 93 fl (80-97); PLATELET COUNT 391 10^3/uL (150-450); RED BLOOD COUNT 4.06 10^6/uL (4.35-5.55); RED CELL DISTRIBUTION WIDTH 14.8 % (11.5-14.0); WHITE BLOOD COUNT 13.5 10^3/uL (4.0-10.5)
[2017-09-30 04:37] LABS: INTERNATIONAL RATION (INR) 0.99; PROTHROMBIN TIME 13.8 SEC (11.4-15.4)
[2017-09-30 04:45] LABS: ABSOLUTE LYMPHOCYTES# (MANUAL) 0.5 10^3/uL (0.5-4.7); ABSOLUTE MONOCYTES # (MANUAL) 0.7 10^3/uL (0.1-1.4); ABSOLUTE NEUTROPHILS# (MANUAL) 12.3 10^3/uL (1.7-8.2); BASOPHILS % (MANUAL) 0 % (0-2); EOSINOPHILS % (MANUAL) 0 % (0-6); LYMPHOCYTES % (MANUAL) 4 % (13-45); MONOCYTES % (MANUAL) 5 % (3-13); PLATELET COMMENT ADEQUATE; SEGMENTED NEUTROPHILS % (MAN) 91 % (42-78); TOTAL CELLS COUNTED 100
[2017-09-30 04:46] LABS: TOXIC GRANULATION SLIGHT; TOXIC VACUOLATION PRESENT
[2017-09-30 04:47] LABS: RBC MORPHOLOGY COMMENT NORMO-CYTIC/CHROMIC
[2017-09-30 04:57] LABS: ALANINE AMINOTRANSFERASE 24 U/L (21-72); ALBUMIN 2.7 g/dL (3.5-5.0); ALKALINE PHOSPHATASE 58 U/L (38-126); ASPARTATE AMINO TRANSFERASE 9 U/L (17-59); BILIRUBIN,DIRECT 0.2 mg/dL (0.0-0.4); BILIRUBIN,TOTAL 0.2 mg/dL (0.2-1.3); BLOOD UREA NITROGEN 20 mg/dL (7-20); CALCIUM 9.1 mg/dL (8.4-10.2); CHLORIDE 101 mmol/L (98-107); GLUCOSE 126 mg/dL (75-110); PHOSPHORUS 3.5 mg/dL (2.5-4.5); POTASSIUM 4.9 mmol/L (3.6-5.0); TOTAL PROTEIN 5.3 g/dL (6.3-8.2)
[2017-09-30] MEDS: VANCOMYCIN HCL 1,250 MG in DEXTROSE 5%-WATER 250 ML IV SCH (05:00)
[2017-09-30 05:02] LABS: CARBON DIOXIDE 33 mmol/L (22-30); SODIUM 137.8 mmol/L (137-145)
[2017-09-30 05:04] LABS: ANION GAP 4 (5-19)
[2017-09-30 05:19] LABS: FREE T4 (FREE THYROXINE) 1.59 ng/dL (0.78-2.19)
[2017-09-30 05:33] LABS: THYROID STIMULATING HORMONE 0.41 uIU/mL (0.47-4.68)
[2017-09-30 05:42] LABS: ARTERIAL BLOOD BASE EXCESS 3.9 mmol/L; ARTERIAL BLOOD H2CO3 1.38 mmol/L (1.05-1.35); ARTERIAL BLOOD O2 SATURATION 98.6 % (94-98); ARTERIAL BLOOD PCO2 45.7 mmHg (35-45); ARTERIAL BLOOD PH 7.42 (7.35-7.45); ARTERIAL BLOOD PO2 126.8 mmHg (80-100); ARTERIAL BLOOD TOTAL CO2 30.4 mmol/L (23-27)
[2017-09-30 05:45] LABS: ARTERIAL BLOOD FIO2 45%
--- NOTE | 2017-09-30 06:54 | RADIOLOGY REPORT (SQ) ---
EXAM DESCRIPTION: CHEST SINGLE VIEW CLINICAL HISTORY: 57 years Male, resp fail/copd/pna COMPARISON: 4.1.18 NUMBER OF VIEWS/TECHNIQUE: 1/AP LIMITATIONS: None. FINDINGS: Moderate streakiness of the right lower lobe, small left basilar opacity, normal cardiac silhouette, adequate appearing endotracheal tube is 7.6 cm from the ruddy, adequate appearing enteric tube obscured at its tip. No pneumothorax. No acute bone defect. IMPRESSION: No significant change.
[2017-09-30] MEDS: ASPIRIN 81 MG TABLET, CHEWABLE NG SCH (09:21)
[2017-09-30] MEDS: LEVOFLOXACIN 750 MG/D5W RTU 750 MG/150 ML RTUPB IV SCH (09:27)
[2017-09-30] MEDS: PANTOPRAZOLE SODIUM 40 MG VIAL IV SCH (09:29)
[2017-09-30] MEDS: METOPROLOL TARTRATE 25 MG TABLET PO SCH ×2 (09:31→21:20)
[2017-09-30] MEDS ORDERED: DEXAMETHASONE SOD PHOSPHATE INJ 4 MG/1 ML VIAL IV ONE (09:45)
[2017-09-30] MEDS: CITALOPRAM HYDROBROMIDE 20 MG TABLET PO SCH (09:55)
[2017-09-30] MEDS: ENOXAPARIN SODIUM INJ 40 MG/0.4 ML DISP.SYRIN SUBCUT SCH (09:59)
[2017-09-30] MEDS ORDERED: SCOPOLAMINE HYDROBROMIDE 1.5 MG PATCH.TD72 TD ONE (10:00)
[2017-09-30] MEDS: CEFTRIAXONE SODIUM 1,000 MG in NORMAL SALINE 100 ML IV SCH (12:00)
[2017-09-30] MEDS: TAMSULOSIN HCL 0.4 MG CAP.SR.24H PO SCH (12:59)
--- NOTE | 2017-09-30 13:27 | PDOC PROGRESS REPORT ---
Subjective Progress Note for:: 09/29/17 Subjective:: intubated Reason For Visit: SEPSIS,ACUTE HYPERCAPNIC RESPIRATORY FAILURE Physical Exam Vital Signs: Temp Pulse Resp BP Pulse Ox 97.8 F 72 14 139/98 H 97 09/29/17 05:52 09/29/17 05:52 09/29/17 06:00 09/29/17 05:52 09/29/17 06:00 Intake & Output 09/28/17 09/29/17 09/30/17 06:59 06:59 06:59 Intake Total 974 2823 Output Total 25 1905 Balance 949 918 Weight 108.2 kg 108.8 kg General appearance: PRESENT: no acute distress, disheveled, obese Head exam: PRESENT: atraumatic, normocephalic Eye exam: PRESENT: conjunctiva pale. ABSENT: nystagmus, periorbital swelling, scleral icterus Mouth exam: PRESENT: dry mucosa, neck supple, tongue midline, other - ET tube in place Neck exam: ABSENT: carotid bruit, JVD, lymphadenopathy, thyromegaly, tracheal deviation, tracheostomy Respiratory exam: PRESENT: decreased breath sounds, prolonged expiratory phas, rales, rhonchi, symmetrical, unlabored, wheezes. ABSENT: retraction, stridor Cardiovascular exam: PRESENT: RRR, +S1, +S2 Pulses: PRESENT: normal radial pulses GI/Abdominal exam: PRESENT: diminished bowel sounds, soft Extremities exam: ABSENT: clubbing, joint swelling, pedal edema Musculoskeletal exam: ABSENT: ambulatory, deformity, dislocation Neurological exam: PRESENT: awake. ABSENT: oriented to place, oriented to time , oriented to situation Skin exam: PRESENT: dry, warm Results Laboratory Results: 09/29/17 04:24 09/29/17 04:24 09/28/17 09/28/17 09/28/17 07:28 07:28 07:28 WBC 27.1 H RBC 3.59 L Hgb 11.1 L Hct 33.6 L MCV 94 MCH 30.9 MCHC 33.1 RDW 14.3 H Plt Count 360 Seg Neutrophils % Not Reportable Lymphocytes % Not Reportable Monocytes % Not Reportable Eosinophils % Not Reportable Basophils % Not Reportable Absolute Neutrophils Not Reportable Absolute Lymphocytes Not Reportable Absolute Monocytes Not Reportable Absolute Eosinophils Not Reportable Absolute Basophils Not Reportable Sodium 138.6 Potassium 4.3 D Chloride 99 Carbon Dioxide 35 H Anion Gap 5 BUN 22 H Creatinine 0.67 Est GFR ( Amer) > 60 Est GFR (Non-Af Amer) > 60 Glucose 121 H Calcium 8.4 Phosphorus 3.0 Magnesium 2.4 H Total Bilirubin 0.2 AST 12 L ALT 29 Alkaline Phosphatase 62 Total Protein 5.1 L Albumin 2.7 L Triglycerides 92 Cholesterol 128.46 LDL Cholesterol Direct 65 VLDL Cholesterol 18.0 HDL Cholesterol 32 L TSH 0.09 L 09/29/17 09/29/17 04:24 04:24 WBC 21.9 H RBC 3.82 L Hgb 11.7 L Hct 35.7 L MCV 93 MCH 30.7 MCHC 32.9 RDW 14.3 H Plt Count 378 Seg Neutrophils % Not Reportable Lymphocytes % Not Reportable Monocytes % Not Reportable Eosinophils % Not Reportable Basophils % Not Reportable Absolute Neutrophils Not Reportable Absolute Lymphocytes Not Reportable Absolute Monocytes Not Reportable Absolute Eosinophils Not Reportable Absolute Basophils Not Reportable Sodium 137.9 Potassium 4.6 Chloride 99 Carbon Dioxide 34 H Anion Gap 5 BUN 19 Creatinine 0.64 Est GFR ( Amer) > 60 Est GFR (Non-Af Amer) > 60 Glucose 129 H Calcium 9.0 Phosphorus 3.1 Magnesium 2.4 H Total Bilirubin 0.1 L AST 9 L ALT 26 Alkaline Phosphatase 62 Total Protein 5.2 L Albumin 2.7 L Triglycerides Cholesterol LDL Cholesterol Direct VLDL Cholesterol HDL Cholesterol TSH 09/27/17 09/27/17 09/28/17 19:20 19:20 00:36 CK-MB (CK-2) 0.95 1.43 Troponin I 0.166 0.081 NT-Pro-B Natriuret Pep 851 09/28/17 07:28 CK-MB (CK-2) 3.51 Troponin I 0.068 NT-Pro-B Natriuret Pep 395 Assessment & Plan - Diagnosis (1) Acute hypercapnic respiratory failure Is this a current diagnosis for this admission?: Yes Plan: Decreasing requirements and oxygenation and ventilation suspect patient will wean soon (2) COPD exacerbation Is this a current diagnosis for this admission?: Yes Plan: Generic Name Dose Route Start Last Admin Trade Name Freq PRN Reason Stop Dose Admin Acetylcysteine 400 mg 09/28/17 14:00 09/28/17 15:09 Mucomist 10% Neb 400 Mg/4 Ml Vial NEB 10/28/17 13:59 400 mg RTQ6 DOMENICA Methylprednisolone Sodium Succinate 40 mg 09/28/17 02:00 09/28/17 18:15 Solu-Medrol Inj/Pf 40 Mg/1 Ml Sdv IV 10/28/17 01:59 40 mg Q8A DOMENICA Albuterol/Ipratropium 3 ml 09/28/17 02:00 09/28/17 15:08 Duoneb 3 Ml Ampul NEB 10/28/17 01:59 3 ml RTQ6 DOMENICA (3) ARDS (adult respiratory distress syndrome) Is this a current diagnosis for this admission?: Yes Plan: 112/.7 = 160 min improvement - Time Total Critical Time (Minutes): 45
--- NOTE | 2017-09-30 13:32 | PDOC PROGRESS REPORT ---
Subjective Progress Note for:: 09/30/17 Subjective:: intubated,arousable Reason For Visit: SEPSIS,ACUTE HYPERCAPNIC RESPIRATORY FAILURE Physical Exam Vital Signs: Temp Pulse Resp BP Pulse Ox 97.7 F 61 14 137/95 H 97 09/30/17 08:00 09/30/17 08:00 09/30/17 08:00 09/30/17 08:00 09/30/17 08:00 Intake & Output 09/29/17 09/30/17 10/01/17 06:59 06:59 06:59 Intake Total 2823 3432 Output Total 1905 3075 125 Balance 918 357 -125 Weight 108.8 kg 109.3 kg General appearance: PRESENT: no acute distress, cooperative, disheveled, obese Head exam: PRESENT: atraumatic, normocephalic Eye exam: PRESENT: conjunctiva pale, EOMI. ABSENT: nystagmus, periorbital swelling, scleral icterus Mouth exam: PRESENT: dry mucosa, neck supple, tongue midline, other - ET tube in place Neck exam: ABSENT: carotid bruit, JVD, lymphadenopathy, thyromegaly, tracheal deviation, tracheostomy Respiratory exam: PRESENT: decreased breath sounds, prolonged expiratory phas, rhonchi, symmetrical, unlabored. ABSENT: stridor Cardiovascular exam: PRESENT: RRR, +S1, +S2, tachycardia GI/Abdominal exam: PRESENT: diminished bowel sounds, soft Extremities exam: ABSENT: clubbing, joint swelling, pedal edema Musculoskeletal exam: ABSENT: deformity, dislocation Neurological exam: PRESENT: awake, oriented to person Skin exam: PRESENT: dry, warm Results Laboratory Results: 09/30/17 04:10 09/30/17 04:10 09/30/17 09/30/17 09/30/17 04:10 04:10 04:10 WBC 13.5 H RBC 4.06 L Hgb 12.5 L Hct 37.7 L MCV 93 MCH 30.7 MCHC 33.1 RDW 14.8 H Plt Count 391 Seg Neutrophils % Not Reportable Lymphocytes % Not Reportable Monocytes % Not Reportable Eosinophils % Not Reportable Basophils % Not Reportable Absolute Neutrophils Not Reportable Absolute Lymphocytes Not Reportable Absolute Monocytes Not Reportable Absolute Eosinophils Not Reportable Absolute Basophils Not Reportable Carbonic Acid HCO3/H2CO3 Ratio ABG pH ABG pCO2 ABG pO2 ABG HCO3 ABG O2 Saturation ABG Base Excess FiO2 Sodium 137.8 Potassium 4.9 Chloride 101 Carbon Dioxide 33 H Anion Gap 4 L BUN 20 Creatinine 0.66 Est GFR ( Amer) > 60 Est GFR (Non-Af Amer) > 60 Glucose 126 H Calcium 9.1 Phosphorus 3.5 Magnesium 2.4 H Total Bilirubin 0.2 AST 9 L ALT 24 Alkaline Phosphatase 58 Total Protein 5.3 L Albumin 2.7 L TSH 0.41 L Free T4 1.59 09/30/17 05:10 WBC RBC Hgb Hct MCV MCH MCHC RDW Plt Count Seg Neutrophils % Lymphocytes % Monocytes % Eosinophils % Basophils % Absolute Neutrophils Absolute Lymphocytes Absolute Monocytes Absolute Eosinophils Absolute Basophils Carbonic Acid 1.38 H HCO3/H2CO3 Ratio 21:1 ABG pH 7.42 ABG pCO2 45.7 H ABG pO2 126.8 H ABG HCO3 29.0 H ABG O2 Saturation 98.6 H ABG Base Excess 3.9 FiO2 45% Sodium Potassium Chloride Carbon Dioxide Anion Gap BUN Creatinine Est GFR ( Amer) Est GFR (Non-Af Amer) Glucose Calcium Phosphorus Magnesium Total Bilirubin AST ALT Alkaline Phosphatase Total Protein Albumin TSH Free T4 09/27/17 09/27/17 09/28/17 19:20 19:20 00:36 CK-MB (CK-2) 0.95 1.43 Troponin I 0.166 0.081 NT-Pro-B Natriuret Pep 851 09/28/17 07:28 CK-MB (CK-2) 3.51 Troponin I 0.068 NT-Pro-B Natriuret Pep 395 Impressions: Chest X-Ray 09/30/17 06:00 IMPRESSION: No significant change. Assessment & Plan - Diagnosis (1) Acute hypercapnic respiratory failure Is this a current diagnosis for this admission?: Yes Plan: Decreasing requirements and oxygenation and ventilation suspect patient will wean However became profoundly tachypneic and placed on pressure support(10)- CPAP(5) (2) COPD exacerbation Is this a current diagnosis for this admission?: Yes Plan: Generic Name Dose Route Start Last Admin Trade Name Freq PRN Reason Stop Dose Admin Acetylcysteine 400 mg 09/28/17 14:00 09/28/17 15:09 Mucomist 10% Neb 400 Mg/4 Ml Vial NEB 10/28/17 13:59 400 mg RTQ6 DOMENICA Methylprednisolone Sodium Succinate 40 mg 09/28/17 02:00 09/28/17 18:15 Solu-Medrol Inj/Pf 40 Mg/1 Ml Sdv IV 10/28/17 01:59 40 mg Q8A DOMENICA Albuterol/Ipratropium 3 ml 09/28/17 02:00 09/28/17 15:08 Duoneb 3 Ml Ampul NEB 10/28/17 01:59 3 ml RTQ6 DOMENICA (3) ARDS (adult respiratory distress syndrome) Is this a current diagnosis for this admission?: Yes Plan: 112/.7 = 160 min improvement - Time Total Critical Time (Minutes): 75
[2017-09-30] MEDS: NORMAL SALINE 1000 ML 1,000 ML IV PRN (15:56)
[2017-09-30] MEDS ORDERED: OLANZAPINE 5 MG TABLET NG ONE (16:30)
--- NOTE | 2017-09-30 16:38 | PDOC PROGRESS REPORT ---
Subjective Progress Note for:: 09/30/17 Subjective:: SEPSIS,ACUTE HYPERCAPNIC RESPIRATORY FAILURE 56-year-old gentleman with a history of COPD and ongoing tobacco use who presented to the hospital with acute hypoxic and hypercapnic respiratory failure and pneumonia for which he required intubation. Currently remains sedated on the vent. He developed urinary retention and a urinary catheter was placed by Urology on . He was started tube feeds on 09/29/17. Blood cultures positive for Pasturella multocida. He has many cats at home. Repeat blood cultures drawn to confirm resolution. Reason For Visit: SEPSIS,ACUTE HYPERCAPNIC RESPIRATORY FAILURE Physical Exam Vital Signs: Temp Pulse Resp BP Pulse Ox 98.3 F 69 20 140/97 H 9 L 09/30/17 10:00 09/30/17 14:18 09/30/17 14:18 09/30/17 14:08 09/30/17 14:18 Intake & Output 09/29/17 09/30/17 10/01/17 06:59 06:59 06:59 Intake Total 2823 3432 Output Total 1905 3075 765 Balance 918 357 -765 Weight 108.8 kg 109.3 kg 109.3 kg General appearance: PRESENT: obese Head exam: PRESENT: atraumatic, normocephalic Eye exam: PRESENT: PERRLA. ABSENT: scleral icterus Ear exam: PRESENT: normal external ear exam Neck exam: ABSENT: tracheal deviation Respiratory exam: PRESENT: clear to auscultation abi, symmetrical. ABSENT: rhonchi Cardiovascular exam: PRESENT: RRR GI/Abdominal exam: PRESENT: normal bowel sounds, soft. ABSENT: tenderness Rectal exam: PRESENT: deferred Extremities exam: ABSENT: calf tenderness, pedal edema Skin exam: ABSENT: rash Results Laboratory Results: 09/30/17 04:10 09/30/17 04:10 09/30/17 09/30/17 09/30/17 04:10 04:10 04:10 WBC 13.5 H RBC 4.06 L Hgb 12.5 L Hct 37.7 L MCV 93 MCH 30.7 MCHC 33.1 RDW 14.8 H Plt Count 391 Seg Neutrophils % Not Reportable Lymphocytes % Not Reportable Monocytes % Not Reportable Eosinophils % Not Reportable Basophils % Not Reportable Absolute Neutrophils Not Reportable Absolute Lymphocytes Not Reportable Absolute Monocytes Not Reportable Absolute Eosinophils Not Reportable Absolute Basophils Not Reportable Carbonic Acid HCO3/H2CO3 Ratio ABG pH ABG pCO2 ABG pO2 ABG HCO3 ABG O2 Saturation ABG Base Excess FiO2 Sodium 137.8 Potassium 4.9 Chloride 101 Carbon Dioxide 33 H Anion Gap 4 L BUN 20 Creatinine 0.66 Est GFR ( Amer) > 60 Est GFR (Non-Af Amer) > 60 Glucose 126 H Calcium 9.1 Phosphorus 3.5 Magnesium 2.4 H Total Bilirubin 0.2 AST 9 L ALT 24 Alkaline Phosphatase 58 Total Protein 5.3 L Albumin 2.7 L TSH 0.41 L Free T4 1.59 09/30/17 05:10 WBC RBC Hgb Hct MCV MCH MCHC RDW Plt Count Seg Neutrophils % Lymphocytes % Monocytes % Eosinophils % Basophils % Absolute Neutrophils Absolute Lymphocytes Absolute Monocytes Absolute Eosinophils Absolute Basophils Carbonic Acid 1.38 H HCO3/H2CO3 Ratio 21:1 ABG pH 7.42 ABG pCO2 45.7 H ABG pO2 126.8 H ABG HCO3 29.0 H ABG O2 Saturation 98.6 H ABG Base Excess 3.9 FiO2 45% Sodium Potassium Chloride Carbon Dioxide Anion Gap BUN Creatinine Est GFR ( Amer) Est GFR (Non-Af Amer) Glucose Calcium Phosphorus Magnesium Total Bilirubin AST ALT Alkaline Phosphatase Total Protein Albumin TSH Free T4 09/28/17 02:50 Tracheal Aspirate Gram Stain - Final 09/28/17 02:50 Tracheal Aspirate Sputum Culture - Final NORMAL JULIA 09/27/17 09/27/17 09/28/17 19:20 19:20 00:36 CK-MB (CK-2) 0.95 1.43 Troponin I 0.166 0.081 NT-Pro-B Natriuret Pep 851 09/28/17 07:28 CK-MB (CK-2) 3.51 Troponin I 0.068 NT-Pro-B Natriuret Pep 395 Impressions: Chest X-Ray 09/30/17 06:00 IMPRESSION: No significant change. Assessment & Plan - Diagnosis (1) Bilateral pneumonia Qualifiers: Pneumonia type: due to unspecified organism Lung location: unspecified part of lung Qualified Code(s): J18.9 - Pneumonia, unspecified organism Is this a current diagnosis for this admission?: Yes Plan: Day 4 of antibiotics, follow up on blood cultures Sputum culture grew normal respiratory julia. Bipap, Nebs, steroids, supportive care (2) Leukocytosis Qualifiers: Leukocytosis type: unspecified Qualified Code(s): D72.829 - Elevated white blood cell count, unspecified Is this a current diagnosis for this admission?: Yes Plan: Due to pneumonia. (3) COPD exacerbation Is this a current diagnosis for this admission?: Yes Plan: As above. Gradually taper steroids (4) Depression Is this a current diagnosis for this admission?: Yes Plan: On Celexa. He will need a psych eval after extubation (5) History of nicotine use Is this a current diagnosis for this admission?: Yes (6) Insomnia Is this a current diagnosis for this admission?: Yes (7) Acute hypercapnic respiratory failure Is this a current diagnosis for this admission?: Yes Plan: Cont vent support. (8) Urinary retention Is this a current diagnosis for this admission?: Yes Plan: Maintain Chan, continue Flomax. - Time Time Spent with patient: 35 or more minutes
[2017-09-30] MEDS: MONTELUKAST SODIUM 10 MG TABLET PO SCH (21:19)
[2017-10-01] MEDS: PROPOFOL 100 ML IV PRN ×4 (00:29→09:32)
--- NOTE | 2017-10-01 01:30 | RADIOLOGY REPORT (SQ) ---
EXAM DESCRIPTION: CHEST SINGLE VIEW CLINICAL HISTORY: replaced ETT COMPARISON: 09/30/2017 FINDINGS: Single frontal view of the chest. Endotracheal tube with tip 6 cm above the ruddy. NG tube and side-port with tip below the diaphragm. Leads overlie the chest. Bibasilar opacities are stable. Blunting of the costophrenic angles may represent small bilateral pleural effusions. No pneumothorax. No acute osseous abnormalities. Upper abdominal soft tissues are unremarkable. IMPRESSION: 1. Endotracheal tube in appropriate position with tip 6 cm above the ruddy. No other significant interval change.
[2017-10-01] MEDS: ACETYLCYSTEINE 10% NEB 400 MG/4 ML VIAL NEB SCH ×2 (01:52→08:08)
[2017-10-01] MEDS: IPRATROPIUM/ALBUTEROL 0.5-2.5 MG/3 ML AMPUL NEB SCH ×4 (01:52→20:00)
[2017-10-01] MEDS: METHYLPREDNISOLONE INJ 40 MG/1 ML SDV IV SCH ×3 (02:56→18:49)
[2017-10-01 04:17] LABS: ABSOLUTE LYMPHOCYTES (AUTO) 1.3 10^3/uL (0.5-4.7); ABSOLUTE MONOCYTES (AUTO) 1.1 10^3/uL (0.1-1.4); ABSOLUTE NEUT (AUTO) 8.1 10^3/uL (1.7-8.2); BASOPHILS % (AUTO) 0.2 % (0-2); EOSINOPHILS % (AUTO) 0.2 % (0-6); HEMATOCRIT 36.2 % (37.9-51.0); LYMPHOCYTES % (AUTO) 12.5 % (13-45); MEAN CORPUSCULAR HEMOGLOBIN 30.6 pg (27.0-33.4); MEAN CORPUSCULAR HGB CONC 33.1 g/dL (32.0-36.0); MEAN CORPUSCULAR VOLUME 92 fl (80-97); MONOCYTES % (AUTO) 10.1 % (3-13); PLATELET COUNT 424 10^3/uL (150-450); RED BLOOD COUNT 3.92 10^6/uL (4.35-5.55); RED CELL DISTRIBUTION WIDTH 14.8 % (11.5-14.0); TOTAL CELLS COUNTED % (AUTO) 100 %; WHITE BLOOD COUNT 10.5 10^3/uL (4.0-10.5)
[2017-10-01 04:37] LABS: ALANINE AMINOTRANSFERASE 27 U/L (21-72); ALBUMIN 2.5 g/dL (3.5-5.0); ALKALINE PHOSPHATASE 49 U/L (38-126); ASPARTATE AMINO TRANSFERASE 7 U/L (17-59); BILIRUBIN,DIRECT 0.1 mg/dL (0.0-0.4); BILIRUBIN,TOTAL 0.1 mg/dL (0.2-1.3); BLOOD UREA NITROGEN 21 mg/dL (7-20); CARBON DIOXIDE 34 mmol/L (22-30); CHLORIDE 103 mmol/L (98-107); GLUCOSE 117 mg/dL (75-110); POTASSIUM 4.4 mmol/L (3.6-5.0); TOTAL PROTEIN 5.3 g/dL (6.3-8.2)
[2017-10-01 04:42] LABS: SODIUM 138.7 mmol/L (137-145)
[2017-10-01 04:43] LABS: ANION GAP 2 (5-19)
[2017-10-01] MEDS: OLANZAPINE 2.5 MG TABLET NG SCH ×2 (05:10→18:50)
[2017-10-01] MEDS: MIDAZOLAM HCL 50 MG/100 ML RTUINJ IV PRN (05:10)
[2017-10-01 05:40] LABS: ARTERIAL BLOOD BASE EXCESS 4.9 mmol/L; ARTERIAL BLOOD HCO3 30.6 mmol/L (20-26); ARTERIAL BLOOD O2 SATURATION 97.9 % (94-98); ARTERIAL BLOOD PCO2 49.9 mmHg (35-45); ARTERIAL BLOOD PH 7.41 (7.35-7.45); ARTERIAL BLOOD PO2 108.3 mmHg (80-100); ARTERIAL BLOOD TOTAL CO2 32.2 mmol/L (23-27)
[2017-10-01 05:41] LABS: ARTERIAL BLOOD FIO2 45%
[2017-10-01] MEDS: NORMAL SALINE 1000 ML 1,000 ML IV PRN (06:18)
--- NOTE | 2017-10-01 07:04 | RADIOLOGY REPORT (SQ) ---
EXAM DESCRIPTION: CHEST SINGLE VIEW CLINICAL HISTORY: resp fail COMPARISON: 10/01/2017 FINDINGS: Single frontal view of the chest. Endotracheal tube with tip at the level of clavicles. NG tube with tip below the diaphragm. Low lung volumes. Bibasilar opacities. Heart is not enlarged. No new osseous abnormalities. No pneumothorax. Upper abdominal soft tissues are unremarkable. IMPRESSION: 1. No significant interval change
[2017-10-01] MEDS: LEVOFLOXACIN 750 MG/D5W RTU 750 MG/150 ML RTUPB IV SCH (09:36)
[2017-10-01] MEDS: CITALOPRAM HYDROBROMIDE 20 MG TABLET PO SCH (09:37)
[2017-10-01] MEDS: METOPROLOL TARTRATE 25 MG TABLET PO SCH ×2 (09:37→21:49)
[2017-10-01] MEDS: ASPIRIN 81 MG TABLET, CHEWABLE NG SCH (09:39)
[2017-10-01] MEDS: ENOXAPARIN SODIUM INJ 40 MG/0.4 ML DISP.SYRIN SUBCUT SCH (09:39)
[2017-10-01] MEDS: TAMSULOSIN HCL 0.4 MG CAP.SR.24H PO SCH (09:39)
[2017-10-01] MEDS ORDERED: DEXAMETHASONE SOD PHOSPHATE INJ 4 MG/1 ML VIAL ONE (10:04)
[2017-10-01] MEDS ORDERED: DEXAMETHASONE SOD PHOSPHATE INJ 4 MG/1 ML VIAL IV ONE (11:00)
[2017-10-01] MEDS: CEFTRIAXONE SODIUM 1,000 MG in NORMAL SALINE 100 ML IV SCH (12:41)
--- NOTE | 2017-10-01 13:56 | PDOC PROGRESS REPORT ---
Subjective Progress Note for:: 10/01/17 Subjective:: extubate Reason For Visit: SEPSIS,ACUTE HYPERCAPNIC RESPIRATORY FAILURE Physical Exam Vital Signs: Temp Pulse Resp BP Pulse Ox 98.1 F 55 L 14 131/86 H 96 10/01/17 05:31 10/01/17 08:28 10/01/17 05:10 10/01/17 05:10 10/01/17 05:10 Intake & Output 09/30/17 10/01/17 10/02/17 06:59 06:59 06:59 Intake Total 3432 2809 Output Total 3075 2730 Balance 357 79 Weight 109.3 kg 108.6 kg General appearance: PRESENT: no acute distress, disheveled, obese Head exam: PRESENT: atraumatic, normocephalic Eye exam: PRESENT: conjunctiva pale, nystagmus, periorbital swelling Mouth exam: PRESENT: dry mucosa, neck supple, tongue midline Neck exam: ABSENT: carotid bruit, JVD, lymphadenopathy, thyromegaly, tracheal deviation, tracheostomy Respiratory exam: PRESENT: decreased breath sounds, prolonged expiratory phas, rhonchi, symmetrical, unlabored, wheezes. ABSENT: retraction, stridor, tachypnea Cardiovascular exam: PRESENT: RRR, +S1, +S2, tachycardia Pulses: PRESENT: normal radial pulses GI/Abdominal exam: PRESENT: diminished bowel sounds, soft Extremities exam: ABSENT: clubbing, joint swelling, pedal edema Musculoskeletal exam: ABSENT: deformity, dislocation Neurological exam: ABSENT: awake, oriented to person, oriented to place Skin exam: PRESENT: dry, warm Results Laboratory Results: 10/01/17 03:56 10/01/17 03:56 10/01/17 10/01/17 10/01/17 03:56 03:56 05:25 WBC 10.5 RBC 3.92 L Hgb 12.0 L Hct 36.2 L MCV 92 MCH 30.6 MCHC 33.1 RDW 14.8 H Plt Count 424 Seg Neutrophils % 77.0 Lymphocytes % 12.5 L Monocytes % 10.1 Eosinophils % 0.2 Basophils % 0.2 Absolute Neutrophils 8.1 Absolute Lymphocytes 1.3 Absolute Monocytes 1.1 Absolute Eosinophils 0.0 Absolute Basophils 0.0 Carbonic Acid 1.50 H HCO3/H2CO3 Ratio 20:1 ABG pH 7.41 ABG pCO2 49.9 H ABG pO2 108.3 H ABG HCO3 30.6 H ABG O2 Saturation 97.9 ABG Base Excess 4.9 FiO2 45% Sodium 138.7 Potassium 4.4 Chloride 103 Carbon Dioxide 34 H Anion Gap 2 L BUN 21 H Creatinine 0.71 Est GFR ( Amer) > 60 Est GFR (Non-Af Amer) > 60 Glucose 117 H Calcium 9.0 Magnesium 2.4 H Total Bilirubin 0.1 L AST 7 L ALT 27 Alkaline Phosphatase 49 Total Protein 5.3 L Albumin 2.5 L 09/28/17 02:50 Tracheal Aspirate Gram Stain - Final 09/28/17 02:50 Tracheal Aspirate Sputum Culture - Final NORMAL JULIA 09/27/17 09/27/17 09/28/17 19:20 19:20 00:36 CK-MB (CK-2) 0.95 1.43 Troponin I 0.166 0.081 NT-Pro-B Natriuret Pep 851 09/28/17 07:28 CK-MB (CK-2) 3.51 Troponin I 0.068 NT-Pro-B Natriuret Pep 395 Impressions: Chest X-Ray 10/01/17 06:00 IMPRESSION: 1. No significant interval change Assessment & Plan - Diagnosis (1) Acute hypercapnic respiratory failure Is this a current diagnosis for this admission?: Yes Plan: suspect patient will wean and placed on bi-pap (2) COPD exacerbation Is this a current diagnosis for this admission?: Yes Plan: Generic Name Dose Route Start Last Admin Trade Name Freq PRN Reason Stop Dose Admin Acetylcysteine 400 mg 09/28/17 14:00 09/28/17 15:09 Mucomist 10% Neb 400 Mg/4 Ml Vial NEB 10/28/17 13:59 400 mg RTQ6 DOMENICA Methylprednisolone Sodium Succinate 40 mg 09/28/17 02:00 09/28/17 18:15 Solu-Medrol Inj/Pf 40 Mg/1 Ml Sdv IV 10/28/17 01:59 40 mg Q8A DOMENICA Albuterol/Ipratropium 3 ml 09/28/17 02:00 09/28/17 15:08 Duoneb 3 Ml Ampul NEB 10/28/17 01:59 3 ml RTQ6 DOMENICA (3) ARDS (adult respiratory distress syndrome) Is this a current diagnosis for this admission?: Yes Plan: 112/.7 = 160 min improvement - Time Total Critical Time (Minutes): 55
[2017-10-01 15:14] LABS: ARTERIAL BLOOD BASE EXCESS 6.5 mmol/L; ARTERIAL BLOOD H2CO3 1.68 mmol/L (1.05-1.35); ARTERIAL BLOOD HCO3 33.1 mmol/L (20-26); ARTERIAL BLOOD O2 SATURATION 97.9 % (94-98); ARTERIAL BLOOD PCO2 55.9 mmHg (35-45); ARTERIAL BLOOD PH 7.39 (7.35-7.45); ARTERIAL BLOOD PO2 109.5 mmHg (80-100); ARTERIAL BLOOD TOTAL CO2 34.8 mmol/L (23-27)
[2017-10-01 15:15] LABS: ARTERIAL BLOOD FIO2 36%
--- NOTE | 2017-10-01 18:25 | PDOC PROGRESS REPORT ---
Subjective Progress Note for:: 10/01/17 Subjective:: Sedated and intubated this morning Reason For Visit: 56-year-old gentleman with a history of COPD and ongoing tobacco use who presented to the hospital with acute hypoxic and hypercapnic respiratory failure and pneumonia for which he required intubation. He was started on broad -spectrum antibiotics. He developed urinary retention and a urinary catheter was placed by Urology on 09/28/17. He was started tube feeds on 09/29/17. Blood cultures positive for Pasturella multocida. He has many cats at home. Repeat blood cultures drawn to confirm resolution. Physical Exam Vital Signs: Temp Pulse Resp BP Pulse Ox 98.1 F 66 33 H 164/102 H 97 10/01/17 16:00 10/01/17 14:00 10/01/17 16:25 10/01/17 15:09 10/01/17 16:25 Intake & Output 09/30/17 10/01/17 10/02/17 06:59 06:59 06:59 Intake Total 3432 2809 Output Total 3075 2730 3700 Balance 357 79 -3700 Weight 109.3 kg 108.6 kg General appearance: PRESENT: no acute distress, obese Head exam: PRESENT: atraumatic, normocephalic Respiratory exam: PRESENT: unlabored Cardiovascular exam: PRESENT: RRR. ABSENT: diastolic murmur, rubs, systolic murmur GI/Abdominal exam: PRESENT: normal bowel sounds, soft. ABSENT: distended, guarding, mass, organolmegaly, rebound, tenderness Neurological exam: PRESENT: other - Sedated Skin exam: PRESENT: dry, intact, warm. ABSENT: cyanosis, rash Results Laboratory Results: 10/01/17 03:56 10/01/17 03:56 10/01/17 10/01/17 10/01/17 03:56 03:56 05:25 WBC 10.5 RBC 3.92 L Hgb 12.0 L Hct 36.2 L MCV 92 MCH 30.6 MCHC 33.1 RDW 14.8 H Plt Count 424 Seg Neutrophils % 77.0 Lymphocytes % 12.5 L Monocytes % 10.1 Eosinophils % 0.2 Basophils % 0.2 Absolute Neutrophils 8.1 Absolute Lymphocytes 1.3 Absolute Monocytes 1.1 Absolute Eosinophils 0.0 Absolute Basophils 0.0 Carbonic Acid 1.50 H HCO3/H2CO3 Ratio 20:1 ABG pH 7.41 ABG pCO2 49.9 H ABG pO2 108.3 H ABG HCO3 30.6 H ABG O2 Saturation 97.9 ABG Base Excess 4.9 FiO2 45% Sodium 138.7 Potassium 4.4 Chloride 103 Carbon Dioxide 34 H Anion Gap 2 L BUN 21 H Creatinine 0.71 Est GFR ( Amer) > 60 Est GFR (Non-Af Amer) > 60 Glucose 117 H Calcium 9.0 Magnesium 2.4 H Total Bilirubin 0.1 L AST 7 L ALT 27 Alkaline Phosphatase 49 Total Protein 5.3 L Albumin 2.5 L 10/01/17 15:00 WBC RBC Hgb Hct MCV MCH MCHC RDW Plt Count Seg Neutrophils % Lymphocytes % Monocytes % Eosinophils % Basophils % Absolute Neutrophils Absolute Lymphocytes Absolute Monocytes Absolute Eosinophils Absolute Basophils Carbonic Acid 1.68 H HCO3/H2CO3 Ratio 19:1 ABG pH 7.39 ABG pCO2 55.9 H ABG pO2 109.5 H ABG HCO3 33.1 H ABG O2 Saturation 97.9 ABG Base Excess 6.5 FiO2 36% Sodium Potassium Chloride Carbon Dioxide Anion Gap BUN Creatinine Est GFR ( Amer) Est GFR (Non-Af Amer) Glucose Calcium Magnesium Total Bilirubin AST ALT Alkaline Phosphatase Total Protein Albumin 09/27/17 09/27/17 09/28/17 19:20 19:20 00:36 CK-MB (CK-2) 0.95 1.43 Troponin I 0.166 0.081 NT-Pro-B Natriuret Pep 851 09/28/17 07:28 CK-MB (CK-2) 3.51 Troponin I 0.068 NT-Pro-B Natriuret Pep 395 Impressions: Chest X-Ray 10/01/17 06:00 IMPRESSION: 1. No significant interval change Assessment & Plan - Diagnosis (1) ARDS (adult respiratory distress syndrome) Is this a current diagnosis for this admission?: Yes Plan: Plan per pulmonary. He may be extubated today. (2) Acute hypercapnic respiratory failure Is this a current diagnosis for this admission?: Yes Plan: See above. (3) Bilateral pneumonia Qualifiers: Pneumonia type: due to unspecified organism Lung location: unspecified part of lung Qualified Code(s): J18.9 - Pneumonia, unspecified organism Is this a current diagnosis for this admission?: Yes Plan: Continue antibiotics. D#5 (4) Urinary retention Is this a current diagnosis for this admission?: Yes Plan: Continue Chan for now. (5) COPD exacerbation Is this a current diagnosis for this admission?: Yes Plan: See above. (6) Depression Qualifiers: Depression Type: unspecified Qualified Code(s): F32.9 - Major depressive disorder, single episode, unspecified Is this a current diagnosis for this admission?: Yes Plan: Psychiatry evaluation once he is extubated. - Time Time Spent with patient: 35 or more minutes Medications reviewed and adjusted accordingly: Yes Anticipated discharge: Home - Inpatient Certification Based on my medical assessment, after consideration of the patient's comorbidities, presenting symptoms, or acuity I expect that the services needed warrant INPATIENT care.: Yes I certify that my determination is in accordance with my understanding of Medicare's requirements for reasonable and necessary INPATIENT services [42 CFR 412.3e].: Yes Medical Necessity: Significant Comorbidiites Make Outpatient Treatment Too Risky , Need Close Monitoring Due to Risk of Patient Decompensation, Need for Nebulizer Therapy and Monitoring of Response
[2017-10-01] MEDS: MONTELUKAST SODIUM 10 MG TABLET PO SCH (21:50)
[2017-10-02] MEDS: IPRATROPIUM/ALBUTEROL 0.5-2.5 MG/3 ML AMPUL NEB SCH ×4 (02:13→21:14)
[2017-10-02] MEDS: METHYLPREDNISOLONE INJ 40 MG/1 ML SDV IV SCH ×3 (03:25→18:52)
[2017-10-02 04:34] LABS: ABSOLUTE LYMPHOCYTES (AUTO) 1.6 10^3/uL (0.5-4.7); ABSOLUTE MONOCYTES (AUTO) 1.1 10^3/uL (0.1-1.4); ABSOLUTE NEUT (AUTO) 10.4 10^3/uL (1.7-8.2); BASOPHILS % (AUTO) 0.2 % (0-2); EOSINOPHILS % (AUTO) 0.1 % (0-6); HEMATOCRIT 40.9 % (37.9-51.0); HEMOGLOBIN 13.3 g/dL (13.5-17.0); LYMPHOCYTES % (AUTO) 12.5 % (13-45); MEAN CORPUSCULAR HEMOGLOBIN 30.2 pg (27.0-33.4); MEAN CORPUSCULAR HGB CONC 32.4 g/dL (32.0-36.0); MEAN CORPUSCULAR VOLUME 93 fl (80-97); MONOCYTES % (AUTO) 8.4 % (3-13); PLATELET COUNT 443 10^3/uL (150-450); RED BLOOD COUNT 4.39 10^6/uL (4.35-5.55); RED CELL DISTRIBUTION WIDTH 14.4 % (11.5-14.0); SEGMENTED NEUTROPHILS % (AUTO) 78.8 % (42-78); TOTAL CELLS COUNTED % (AUTO) 100 %; WHITE BLOOD COUNT 13.2 10^3/uL (4.0-10.5)
[2017-10-02 04:49] LABS: ANION GAP 5 (5-19); BLOOD UREA NITROGEN 25 mg/dL (7-20); CALCIUM 9.2 mg/dL (8.4-10.2); CARBON DIOXIDE 37 mmol/L (22-30); CHLORIDE 99 mmol/L (98-107); GLUCOSE 102 mg/dL (75-110); POTASSIUM 4.5 mmol/L (3.6-5.0); SODIUM 141.1 mmol/L (137-145)
[2017-10-02] MEDS: OLANZAPINE 2.5 MG TABLET NG SCH ×2 (05:59→18:01)
[2017-10-02 06:01] LABS: ARTERIAL BLOOD BASE EXCESS 9.1 mmol/L; ARTERIAL BLOOD H2CO3 1.63 mmol/L (1.05-1.35); ARTERIAL BLOOD HCO3 35.3 mmol/L (20-26); ARTERIAL BLOOD O2 SATURATION 92.4 % (94-98); ARTERIAL BLOOD PH 7.43 (7.35-7.45); ARTERIAL BLOOD PO2 63.1 mmHg (80-100); ARTERIAL BLOOD TOTAL CO2 36.9 mmol/L (23-27)
[2017-10-02 06:02] LABS: ARTERIAL BLOOD FIO2 2L
--- NOTE | 2017-10-02 06:26 | RADIOLOGY REPORT (SQ) ---
EXAM DESCRIPTION: CHEST SINGLE VIEW CLINICAL HISTORY: resp fail COMPARISON: 10/02/2017 FINDINGS: Single frontal view of the chest. Interval removal of endotracheal tube and NG tube. Low lung volumes. Bibasilar opacities with slight improved aeration. Heart is not enlarged. No new osseous abnormalities. No pneumothorax. Upper abdominal soft tissues are unremarkable. IMPRESSION: 1. Interval removal of endotracheal tube and NG tube. Slight improved aeration of the lung bases. Electronically signed by: Elvin Milligan 10/02/2017 5:25 AM
--- NOTE | 2017-10-02 08:04 | PDOC PROGRESS REPORT ---
Subjective Subjective:: 56-year-old gentleman with a history of COPD and ongoing tobacco use who presented to the hospital with acute hypoxic and hypercapnic respiratory failure and pneumonia for which he required intubation. He was started on broad -spectrum antibiotics. He developed urinary retention and a urinary catheter was placed by Urology on 09/28/17. He was started tube feeds on 09/29/17. Blood cultures positive for Pasturella multocida. He has many cats at home. Repeat blood cultures drawn to confirm resolution. 10/01 Sedated and intubated 10/02 s/p extubation yesterday. Today, he already asking about discharge. Reason For Visit: SEPSIS,ACUTE HYPERCAPNIC RESPIRATORY FAILURE Physical Exam Vital Signs: Temp Pulse Resp BP Pulse Ox 98.2 F 68 29 H 142/95 H 90 L 10/02/17 05:25 10/02/17 02:13 10/02/17 06:00 10/02/17 05:10 10/02/17 06:00 Intake & Output 10/01/17 10/02/17 10/03/17 06:59 06:59 06:59 Intake Total 2809 764 Output Total 2730 5915 Balance 79 -5151 Weight 108.6 kg 103.6 kg General appearance: PRESENT: no acute distress, well-developed, well-nourished Eye exam: PRESENT: EOMI, PERRLA Neck exam: ABSENT: carotid bruit, JVD, lymphadenopathy, thyromegaly Respiratory exam: PRESENT: clear to auscultation abi. ABSENT: rales, rhonchi, wheezes Cardiovascular exam: PRESENT: RRR. ABSENT: diastolic murmur, rubs, systolic murmur GI/Abdominal exam: PRESENT: normal bowel sounds, soft. ABSENT: distended, guarding, mass, organolmegaly, rebound, tenderness Neurological exam: PRESENT: alert, awake, oriented to person, oriented to place , oriented to time, oriented to situation, CN II-XII grossly intact. ABSENT: motor sensory deficit Skin exam: PRESENT: dry, intact, warm. ABSENT: cyanosis, rash Results Laboratory Results: 10/02/17 04:18 10/02/17 04:18 10/01/17 10/02/17 10/02/17 15:00 :16 10:18 WBC 13.2 H RBC 4.39 Hgb 13.3 L Hct 40.9 MCV 93 MCH 30.2 MCHC 32.4 RDW 14.4 H Plt Count 443 Seg Neutrophils % 78.8 H Lymphocytes % 12.5 L Monocytes % 8.4 Eosinophils % 0.1 Basophils % 0.2 Absolute Neutrophils 10.4 H Absolute Lymphocytes 1.6 Absolute Monocytes 1.1 Absolute Eosinophils 0.0 Absolute Basophils 0.0 Carbonic Acid 1.68 H HCO3/H2CO3 Ratio 19:1 ABG pH 7.39 ABG pCO2 55.9 H ABG pO2 109.5 H ABG HCO3 33.1 H ABG O2 Saturation 97.9 ABG Base Excess 6.5 FiO2 36% Sodium 141.1 Potassium 4.5 Chloride 99 Carbon Dioxide 37 H Anion Gap 5 BUN 25 H Creatinine 0.63 Est GFR ( Amer) > 60 Est GFR (Non-Af Amer) > 60 Glucose 102 Calcium 9.2 Magnesium 2.3 10/02/17 05:50 WBC RBC Hgb Hct MCV MCH MCHC RDW Plt Count Seg Neutrophils % Lymphocytes % Monocytes % Eosinophils % Basophils % Absolute Neutrophils Absolute Lymphocytes Absolute Monocytes Absolute Eosinophils Absolute Basophils Carbonic Acid 1.63 H HCO3/H2CO3 Ratio 21:1 ABG pH 7.43 ABG pCO2 54.0 H ABG pO2 63.1 L ABG HCO3 35.3 H ABG O2 Saturation 92.4 L ABG Base Excess 9.1 FiO2 2L Sodium Potassium Chloride Carbon Dioxide Anion Gap BUN Creatinine Est GFR ( Amer) Est GFR (Non-Af Amer) Glucose Calcium Magnesium 09/27/17 09/27/17 09/28/17 19:20 19:20 00:36 CK-MB (CK-2) 0.95 1.43 Troponin I 0.166 0.081 NT-Pro-B Natriuret Pep 851 09/28/17 07:28 CK-MB (CK-2) 3.51 Troponin I 0.068 NT-Pro-B Natriuret Pep 395 Impressions: Chest X-Ray 10/02/17 06:00 IMPRESSION: 1. Interval removal of endotracheal tube and NG tube. Slight improved aeration of the lung bases. Assessment & Plan - Diagnosis (1) ARDS (adult respiratory distress syndrome) Is this a current diagnosis for this admission?: Yes Plan: Extubated yesterday. On nasal canula today. No respiratory issues overnight. Transfer to [facility]. PT evaluation. (2) Acute hypercapnic respiratory failure Is this a current diagnosis for this admission?: Yes Plan: See above. Resolved. (3) Bilateral pneumonia Qualifiers: Pneumonia type: due to unspecified organism Lung location: unspecified part of lung Qualified Code(s): J18.9 - Pneumonia, unspecified organism Is this a current diagnosis for this admission?: Yes Plan: Continue antibiotics. D#6. According to UpToDate, PCNs are the drug of choice for Pasturella. I will stop cefriaxone and levofloxacin, and start Augmentin. Plus, he is clearly improving. (4) Urinary retention Is this a current diagnosis for this admission?: Yes Plan: Continue Chan for 2 weeks, then voiding trial. He may need to follow up with urology if he is discharged sooner. (5) COPD exacerbation Is this a current diagnosis for this admission?: Yes Plan: See above. defer to pulmonary whether to switch to oral steroids. (6) Depression Qualifiers: Depression Type: unspecified Qualified Code(s): F32.9 - Major depressive disorder, single episode, unspecified Is this a current diagnosis for this admission?: Yes Plan: Psychiatry evaluation now that he is extubated. - Time Time Spent with patient: 25-34 minutes Medications reviewed and adjusted accordingly: Yes Anticipated discharge: Home - Inpatient Certification Based on my medical assessment, after consideration of the patient's comorbidities, presenting symptoms, or acuity I expect that the services needed warrant INPATIENT care.: Yes I certify that my determination is in accordance with my understanding of Medicare's requirements for reasonable and necessary INPATIENT services [42 CFR 412.3e].: Yes Medical Necessity: Need Close Monitoring Due to Risk of Patient Decompensation
[2017-10-02] MEDS ORDERED: AMOXICILLIN TR/POT CLAVULANATE 500-125 MG TAB PO ONE (09:00)
[2017-10-02] MEDS: TAMSULOSIN HCL 0.4 MG CAP.SR.24H PO SCH (10:46)
[2017-10-02] MEDS: ASPIRIN 81 MG TABLET, CHEWABLE NG SCH (10:47)
[2017-10-02] MEDS: CITALOPRAM HYDROBROMIDE 20 MG TABLET PO SCH (10:47)
[2017-10-02] MEDS: METOPROLOL TARTRATE 25 MG TABLET PO SCH (10:47)
[2017-10-02] MEDS: ENOXAPARIN SODIUM INJ 40 MG/0.4 ML DISP.SYRIN SUBCUT SCH (11:03)
--- NOTE | 2017-10-02 13:09 | PSYCHOLOGICAL NOTE ---
Psych Note - Psych Note Psych Note: Reason for consult: Depression Contact permissions: Patient's Ebenezer Li Patient is a 57-year-old male. 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 Patient reports he does not feel he needs a psychiatric evaluation. Patient reports he is concerned that they felt he needed that because he was intubated due to having pneumonia and being physically unhealthy. Patient reports he has been since 1989 and is happy with his . Patient reports he knows how to cope and received therapy years ago. Patient reports he gets medication management by his primary care for depression. Patient reports he knows how to manage his stressors. Patient reports he just "wants to eat a burger". Patient reports he has never thought about suicide, never been suicidal, never been to a psychiatric hospital, and never been homicidal. Collateral information patient's : Ebenezer Li ( Present in room) Patient's reports she has never seen any signs of untreated depression in her . Patient's reports they have been for years and although they get on each other's nerves they are happy. Patient's reports she did not feel her needed a evaluation. Diagnosis: Per Hx 311 ( F32.9) Unspecified Depressive Disorder Impression/plan: Patient is psychiatrically cleared. Clinician spoke with Dr. Ortiz who put in the consult stating he put a consult in for "depression" due to a previous assigned physician stating patient needed an evaluation for depression, however Dr. Ortiz did comment that he was not sure why the physician felt he needed one due to him being intubated the entire shift. Patient reports his depression is being managed by medications, and states that she has not seen any signs of depression. Patient was here solely for medical reasons, per nurse patient had pneumonia and was intubated when the physician made the recommendation for a psych consult. Attending physician in agreement with plan. consulted with Dr. Lopez regarding management and care of patient
--- NOTE | 2017-10-02 13:30 | PDOC PROGRESS REPORT ---
Subjective Progress Note for:: 10/02/17 Subjective:: extubated Doing better Reason For Visit: SEPSIS,ACUTE HYPERCAPNIC RESPIRATORY FAILURE Physical Exam Vital Signs: Temp Pulse Resp BP Pulse Ox 98.0 F 50 L 25 H 135/86 H 98 10/02/17 08:00 10/02/17 08:17 10/02/17 08:00 10/02/17 08:00 10/02/17 08:00 Intake & Output 10/01/17 10/02/17 10/03/17 06:59 06:59 06:59 Intake Total 2809 764 Output Total 2730 5915 520 Balance 79 -5151 -520 Weight 108.6 kg 103.6 kg General appearance: PRESENT: no acute distress, cooperative, disheveled, morbidly obese Head exam: PRESENT: atraumatic, normocephalic Eye exam: PRESENT: conjunctiva pale, EOMI. ABSENT: nystagmus, periorbital swelling, scleral icterus Mouth exam: PRESENT: dry mucosa, neck supple, tongue midline Neck exam: ABSENT: carotid bruit, JVD, lymphadenopathy, thyromegaly, tracheal deviation, tracheostomy Respiratory exam: PRESENT: decreased breath sounds, prolonged expiratory phas, rhonchi, symmetrical, unlabored, wheezes. ABSENT: retraction, stridor, tachypnea Cardiovascular exam: PRESENT: RRR, +S1, +S2, tachycardia Pulses: PRESENT: normal radial pulses GI/Abdominal exam: PRESENT: diminished bowel sounds, soft Extremities exam: PRESENT: full ROM. ABSENT: calf tenderness, clubbing, joint swelling Musculoskeletal exam: PRESENT: full ROM. ABSENT: deformity, dislocation Neurological exam: PRESENT: awake, oriented to person, oriented to place Psychiatric exam: PRESENT: flat affect Skin exam: PRESENT: dry, warm Results Laboratory Results: 10/02/17 04:18 10/02/17 04:18 10/01/17 10/02/17 10/02/17 15:00 04:18 04:18 WBC 13.2 H RBC 4.39 Hgb 13.3 L Hct 40.9 MCV 93 MCH 30.2 MCHC 32.4 RDW 14.4 H Plt Count 443 Seg Neutrophils % 78.8 H Lymphocytes % 12.5 L Monocytes % 8.4 Eosinophils % 0.1 Basophils % 0.2 Absolute Neutrophils 10.4 H Absolute Lymphocytes 1.6 Absolute Monocytes 1.1 Absolute Eosinophils 0.0 Absolute Basophils 0.0 Carbonic Acid 1.68 H HCO3/H2CO3 Ratio 19:1 ABG pH 7.39 ABG pCO2 55.9 H ABG pO2 109.5 H ABG HCO3 33.1 H ABG O2 Saturation 97.9 ABG Base Excess 6.5 FiO2 36% Sodium 141.1 Potassium 4.5 Chloride 99 Carbon Dioxide 37 H Anion Gap 5 BUN 25 H Creatinine 0.63 Est GFR ( Amer) > 60 Est GFR (Non-Af Amer) > 60 Glucose 102 Calcium 9.2 Magnesium 2.3 10/02/17 05:50 WBC RBC Hgb Hct MCV MCH MCHC RDW Plt Count Seg Neutrophils % Lymphocytes % Monocytes % Eosinophils % Basophils % Absolute Neutrophils Absolute Lymphocytes Absolute Monocytes Absolute Eosinophils Absolute Basophils Carbonic Acid 1.63 H HCO3/H2CO3 Ratio 21:1 ABG pH 7.43 ABG pCO2 54.0 H ABG pO2 63.1 L ABG HCO3 35.3 H ABG O2 Saturation 92.4 L ABG Base Excess 9.1 FiO2 2L Sodium Potassium Chloride Carbon Dioxide Anion Gap BUN Creatinine Est GFR ( Amer) Est GFR (Non-Af Amer) Glucose Calcium Magnesium 09/27/17 09/27/17 09/28/17 19:20 19:20 00:36 CK-MB (CK-2) 0.95 1.43 Troponin I 0.166 0.081 NT-Pro-B Natriuret Pep 851 09/28/17 07:28 CK-MB (CK-2) 3.51 Troponin I 0.068 NT-Pro-B Natriuret Pep 395 Impressions: Chest X-Ray 10/02/17 06:00 IMPRESSION: 1. Interval removal of endotracheal tube and NG tube. Slight improved aeration of the lung bases. Assessment & Plan - Diagnosis (1) Acute hypercapnic respiratory failure Is this a current diagnosis for this admission?: Yes Plan: Stable on 2 L nasal cannula (2) COPD exacerbation Is this a current diagnosis for this admission?: Yes Plan: Generic Name Dose Route Start Last Admin Trade Name Freq PRN Reason Stop Dose Admin Acetylcysteine 400 mg 09/28/17 14:00 09/28/17 15:09 Mucomist 10% Neb 400 Mg/4 Ml Vial NEB 10/28/17 13:59 400 mg RTQ6 DOMENICA Methylprednisolone Sodium Succinate 40 mg 09/28/17 02:00 09/28/17 18:15 Solu-Medrol Inj/Pf 40 Mg/1 Ml Sdv IV 10/28/17 01:59 40 mg Q8A DOMENICA Albuterol/Ipratropium 3 ml 09/28/17 02:00 09/28/17 15:08 Duoneb 3 Ml Ampul NEB 10/28/17 01:59 3 ml RTQ6 DOMENICA I suspect that the patient is At or near his baseline (3) ARDS (adult respiratory distress syndrome) Is this a current diagnosis for this admission?: No - Time Total Critical Time (Minutes): 40
[2017-10-02] MEDS: AMOXICILLIN TR/POT CLAVULANATE 500-125 MG TAB PO SCH ×2 (14:43→21:04)
[2017-10-02] MEDS: MONTELUKAST SODIUM 10 MG TABLET PO SCH (21:05)
[2017-10-03] MEDS: METOPROLOL TARTRATE 25 MG TABLET PO SCH ×3 (01:14→23:03)
[2017-10-03] MEDS: IPRATROPIUM/ALBUTEROL 0.5-2.5 MG/3 ML AMPUL NEB SCH ×4 (01:42→20:31)
[2017-10-03] MEDS: METHYLPREDNISOLONE INJ 40 MG/1 ML SDV IV SCH ×3 (02:26→17:20)
[2017-10-03 04:00] LABS: ABSOLUTE EOSINOPHILS # (AUTO) 0.1 10^3/uL (0.0-0.6); ABSOLUTE LYMPHOCYTES (AUTO) 1.3 10^3/uL (0.5-4.7); ABSOLUTE MONOCYTES (AUTO) 1.1 10^3/uL (0.1-1.4); ABSOLUTE NEUT (AUTO) 14.6 10^3/uL (1.7-8.2); BASOPHILS % (AUTO) 0.2 % (0-2); EOSINOPHILS % (AUTO) 0.5 % (0-6); HEMOGLOBIN 14.1 g/dL (13.5-17.0); LYMPHOCYTES % (AUTO) 7.4 % (13-45); MEAN CORPUSCULAR HEMOGLOBIN 30.4 pg (27.0-33.4); MEAN CORPUSCULAR HGB CONC 32.7 g/dL (32.0-36.0); MEAN CORPUSCULAR VOLUME 93 fl (80-97); MONOCYTES % (AUTO) 6.6 % (3-13); PLATELET COUNT 475 10^3/uL (150-450); RED BLOOD COUNT 4.63 10^6/uL (4.35-5.55); RED CELL DISTRIBUTION WIDTH 14.5 % (11.5-14.0); SEGMENTED NEUTROPHILS % (AUTO) 85.3 % (42-78); TOTAL CELLS COUNTED % (AUTO) 100 %; WHITE BLOOD COUNT 17.1 10^3/uL (4.0-10.5)
[2017-10-03 04:18] LABS: ALANINE AMINOTRANSFERASE 42 U/L (21-72); ALKALINE PHOSPHATASE 72 U/L (38-126); ANION GAP 5 (5-19); ASPARTATE AMINO TRANSFERASE 17 U/L (17-59); BILIRUBIN,DIRECT 0.1 mg/dL (0.0-0.4); BILIRUBIN,TOTAL 0.2 mg/dL (0.2-1.3); BLOOD UREA NITROGEN 31 mg/dL (7-20); CALCIUM 9.3 mg/dL (8.4-10.2); CARBON DIOXIDE 38 mmol/L (22-30); CHLORIDE 97 mmol/L (98-107); GLUCOSE 115 mg/dL (75-110); POTASSIUM 4.3 mmol/L (3.6-5.0); SODIUM 140.4 mmol/L (137-145); TOTAL PROTEIN 5.8 g/dL (6.3-8.2)
[2017-10-03] MEDS: AMOXICILLIN TR/POT CLAVULANATE 500-125 MG TAB PO SCH ×3 (05:16→23:02)
[2017-10-03 05:49] LABS: ARTERIAL BLOOD BASE EXCESS 7.8 mmol/L; ARTERIAL BLOOD H2CO3 2.14 mmol/L (1.05-1.35); ARTERIAL BLOOD HCO3 36.6 mmol/L (20-26); ARTERIAL BLOOD O2 SATURATION 96.1 % (94-98); ARTERIAL BLOOD PH 7.33 (7.35-7.45); ARTERIAL BLOOD PO2 90.5 mmHg (80-100); ARTERIAL BLOOD TOTAL CO2 38.8 mmol/L (23-27)
[2017-10-03 05:51] LABS: ARTERIAL BLOOD FIO2 2L
--- NOTE | 2017-10-03 06:51 | RADIOLOGY REPORT (SQ) ---
EXAM DESCRIPTION: CHEST SINGLE VIEW CLINICAL HISTORY: resp failure COMPARISON: 10/02/2017 FINDINGS: Single frontal view of the chest. Low lung volumes. Unchanged streaky bibasilar opacity. Heart is not enlarged. No new osseous abnormalities. No pneumothorax. Upper abdominal soft tissues are unremarkable. IMPRESSION: 1. No significant interval change. Electronically signed by: Elvin Milligan 10/03/2017 5:50 AM CDT
[2017-10-03] MEDS: ASPIRIN 81 MG TABLET, CHEWABLE NG SCH (09:57)
[2017-10-03] MEDS: CITALOPRAM HYDROBROMIDE 20 MG TABLET PO SCH (10:02)
[2017-10-03] MEDS: TAMSULOSIN HCL 0.4 MG CAP.SR.24H PO SCH (10:02)
[2017-10-03] MEDS: ENOXAPARIN SODIUM INJ 40 MG/0.4 ML DISP.SYRIN SUBCUT SCH (10:02)
--- NOTE | 2017-10-03 14:10 | PDOC PROGRESS REPORT ---
Subjective Progress Note for:: 10/03/17 Subjective:: Improving patient did not wear BiPAP last night long discussion about PCO2 O2 and the need for BiPAP patient is going to redouble his efforts to try to be compliant with noninvasive positive pressure ventilation Reason For Visit: SEPSIS,ACUTE HYPERCAPNIC RESPIRATORY FAILURE Physical Exam Vital Signs: Temp Pulse Resp BP Pulse Ox 97.9 F 60 18 110/64 97 10/03/17 04:00 10/03/17 08:08 10/03/17 04:00 10/03/17 04:00 10/03/17 04:00 Intake & Output 10/02/17 10/03/17 10/04/17 06:59 06:59 06:59 Intake Total 764 30 Output Total 5915 8995 Balance -5151 -2567 Weight 103.6 kg 103.5 kg General appearance: PRESENT: no acute distress, cooperative, disheveled, obese Head exam: PRESENT: atraumatic, normocephalic Eye exam: PRESENT: conjunctiva pale, EOMI. ABSENT: nystagmus, periorbital swelling, scleral icterus Mouth exam: PRESENT: dry mucosa, neck supple, tongue midline Neck exam: ABSENT: carotid bruit, JVD, lymphadenopathy, thyromegaly, tracheal deviation, tracheostomy Respiratory exam: PRESENT: decreased breath sounds, prolonged expiratory phas, rhonchi, symmetrical, unlabored. ABSENT: rales, retraction, stridor, tachypnea Cardiovascular exam: PRESENT: RRR, +S1, +S2. ABSENT: tachycardia Pulses: PRESENT: normal radial pulses GI/Abdominal exam: PRESENT: diminished bowel sounds, soft Gentrourinary exam: PRESENT: indwelling catheter - As dictated by urology Extremities exam: ABSENT: clubbing, joint swelling Musculoskeletal exam: ABSENT: deformity, dislocation, full ROM Neurological exam: PRESENT: alert, awake Skin exam: PRESENT: dry, warm Results Laboratory Results: 10/03/17 03:40 10/03/17 03:40 10/03/17 10/03/17 10/03/17 03:40 03:40 05:25 WBC 17.1 H RBC 4.63 Hgb 14.1 Hct 43.0 MCV 93 MCH 30.4 MCHC 32.7 RDW 14.5 H Plt Count 475 H Seg Neutrophils % 85.3 H Lymphocytes % 7.4 L Monocytes % 6.6 Eosinophils % 0.5 Basophils % 0.2 Absolute Neutrophils 14.6 H Absolute Lymphocytes 1.3 Absolute Monocytes 1.1 Absolute Eosinophils 0.1 Absolute Basophils 0.0 Carbonic Acid 2.14 H HCO3/H2CO3 Ratio 17:1 ABG pH 7.33 L ABG pCO2 71.0 H* ABG pO2 90.5 ABG HCO3 36.6 H ABG O2 Saturation 96.1 ABG Base Excess 7.8 FiO2 2L Sodium 140.4 Potassium 4.3 Chloride 97 L Carbon Dioxide 38 H Anion Gap 5 BUN 31 H Creatinine 0.77 Est GFR ( Amer) > 60 Est GFR (Non-Af Amer) > 60 Glucose 115 H Calcium 9.3 Magnesium 2.2 Total Bilirubin 0.2 AST 17 ALT 42 Alkaline Phosphatase 72 Total Protein 5.8 L Albumin 3.0 L 09/27/17 09/27/17 09/28/17 19:20 19:20 00:36 CK-MB (CK-2) 0.95 1.43 Troponin I 0.166 0.081 NT-Pro-B Natriuret Pep 851 09/28/17 07:28 CK-MB (CK-2) 3.51 Troponin I 0.068 NT-Pro-B Natriuret Pep 395 Impressions: Chest X-Ray 10/03/17 06:00 IMPRESSION: 1. No significant interval change. Assessment & Plan - Diagnosis (1) ARDS (adult respiratory distress syndrome) Is this a current diagnosis for this admission?: No Plan: Resolved (2) Acute hypercapnic respiratory failure Is this a current diagnosis for this admission?: Yes Plan: Significantly improved however patient still CO2 without the use of noninvasive positive pressure ventilation (3) COPD exacerbation Is this a current diagnosis for this admission?: Yes
--- NOTE | 2017-10-03 16:53 | PDOC PROGRESS REPORT ---
Subjective Progress Note for:: 10/03/17 Subjective:: 56-year-old gentleman with a history of COPD and ongoing tobacco use who presented to the hospital with acute hypoxic and hypercapnic respiratory failure and pneumonia for which he required intubation. He was started on broad -spectrum antibiotics. He developed urinary retention and a urinary catheter was placed by Urology on 09/28/17. He was started tube feeds on 09/29/17. Blood cultures positive for Pasturella multocida. He has many cats at home. Repeat blood cultures drawn to confirm resolution. 10/01 Sedated and intubated 10/02 s/p extubation yesterday. Today, he already asking about discharge. 10/03 Asking about discharge. No problems overnight. Reason For Visit: SEPSIS,ACUTE HYPERCAPNIC RESPIRATORY FAILURE Physical Exam Vital Signs: Temp Pulse Resp BP Pulse Ox 98.0 F 82 24 H 133/66 H 93 10/03/17 15:21 10/03/17 15:21 10/03/17 15:21 10/03/17 15:21 10/03/17 15:21 Intake & Output 10/02/17 10/03/17 10/04/17 06:59 06:59 06:59 Intake Total 764 30 300 Output Total 5915 2595 500 Balance -5151 -2565 -200 Weight 103.6 kg 103.5 kg General appearance: PRESENT: no acute distress, obese Head exam: PRESENT: atraumatic, normocephalic Neck exam: ABSENT: carotid bruit, JVD, lymphadenopathy, thyromegaly Respiratory exam: PRESENT: clear to auscultation abi. ABSENT: rales, rhonchi, wheezes Cardiovascular exam: PRESENT: RRR. ABSENT: diastolic murmur, rubs, systolic murmur GI/Abdominal exam: PRESENT: normal bowel sounds, soft. ABSENT: distended, guarding, mass, organolmegaly, rebound, tenderness Musculoskeletal exam: PRESENT: ambulatory Neurological exam: PRESENT: alert, awake, oriented to person, oriented to place , oriented to time, oriented to situation, CN II-XII grossly intact. ABSENT: motor sensory deficit Psychiatric exam: PRESENT: appropriate affect, normal mood. ABSENT: homicidal ideation, suicidal ideation Skin exam: PRESENT: dry, intact, warm. ABSENT: cyanosis, rash Results Laboratory Results: 10/03/17 03:40 10/03/17 03:40 10/03/17 10/03/17 10/03/17 03:40 03:40 05:25 WBC 17.1 H RBC 4.63 Hgb 14.1 Hct 43.0 MCV 93 MCH 30.4 MCHC 32.7 RDW 14.5 H Plt Count 475 H Seg Neutrophils % 85.3 H Lymphocytes % 7.4 L Monocytes % 6.6 Eosinophils % 0.5 Basophils % 0.2 Absolute Neutrophils 14.6 H Absolute Lymphocytes 1.3 Absolute Monocytes 1.1 Absolute Eosinophils 0.1 Absolute Basophils 0.0 Carbonic Acid 2.14 H HCO3/H2CO3 Ratio 17:1 ABG pH 7.33 L ABG pCO2 71.0 H* ABG pO2 90.5 ABG HCO3 36.6 H ABG O2 Saturation 96.1 ABG Base Excess 7.8 FiO2 2L Sodium 140.4 Potassium 4.3 Chloride 97 L Carbon Dioxide 38 H Anion Gap 5 BUN 31 H Creatinine 0.77 Est GFR ( Amer) > 60 Est GFR (Non-Af Amer) > 60 Glucose 115 H Calcium 9.3 Magnesium 2.2 Total Bilirubin 0.2 AST 17 ALT 42 Alkaline Phosphatase 72 Total Protein 5.8 L Albumin 3.0 L 09/27/17 09/27/17 09/28/17 19:20 19:20 00:36 CK-MB (CK-2) 0.95 1.43 Troponin I 0.166 0.081 NT-Pro-B Natriuret Pep 851 09/28/17 07:28 CK-MB (CK-2) 3.51 Troponin I 0.068 NT-Pro-B Natriuret Pep 395 Impressions: Chest X-Ray 10/03/17 06:00 IMPRESSION: 1. No significant interval change. Assessment & Plan - Diagnosis (1) ARDS (adult respiratory distress syndrome) Is this a current diagnosis for this admission?: No Plan: Extubated 10/01. On nasal cannula. No respiratory issues overnight. He was transitioned to oral antibiotics 10/02 (2) Acute hypercapnic respiratory failure Is this a current diagnosis for this admission?: Yes Plan: See above. Clinically he looks fine. However, today's blood gas is slightly worse. He reportedly did not wear BiPAP last night. He is been encouraged to comply and agrees to wear it at night. (3) Bilateral pneumonia Qualifiers: Pneumonia type: due to unspecified organism Lung location: unspecified part of lung Qualified Code(s): J18.9 - Pneumonia, unspecified organism Is this a current diagnosis for this admission?: Yes Plan: Continue antibiotics. D#7. According to UpToDate, PCNs are the drug of choice for Pasturella. Cefriaxone and levofloxacin stopped 10/02, and Augmentin started. (4) Urinary retention Is this a current diagnosis for this admission?: Yes Plan: Continue Chan for 2 weeks, then voiding trial. He may need to follow up with urology if he is discharged sooner. (5) COPD exacerbation Is this a current diagnosis for this admission?: Yes Plan: See above. defer to pulmonary whether to switch to oral steroids. (6) Depression Qualifiers: Depression Type: unspecified Qualified Code(s): F32.9 - Major depressive disorder, single episode, unspecified Is this a current diagnosis for this admission?: Yes Plan: Psychiatry evaluation did not suggest he was depressed. - Time Time Spent with patient: 25-34 minutes Medications reviewed and adjusted accordingly: Yes Anticipated discharge: Home Within: within 48 hours - Inpatient Certification Based on my medical assessment, after consideration of the patient's comorbidities, presenting symptoms, or acuity I expect that the services needed warrant INPATIENT care.: Yes I certify that my determination is in accordance with my understanding of Medicare's requirements for reasonable and necessary INPATIENT services [42 CFR 412.3e].: Yes Medical Necessity: Need Close Monitoring Due to Risk of Patient Decompensation
[2017-10-03] MEDS ORDERED: ACETAMINOPHEN 325 MG TABLET PO PRN (18:12)
[2017-10-03] MEDS: MONTELUKAST SODIUM 10 MG TABLET PO SCH (23:03)
[2017-10-04] MEDS: IPRATROPIUM/ALBUTEROL 0.5-2.5 MG/3 ML AMPUL NEB SCH ×3 (01:29→14:07)
[2017-10-04] MEDS: METHYLPREDNISOLONE INJ 40 MG/1 ML SDV IV SCH ×3 (01:43→17:20)
[2017-10-04] MEDS: AMOXICILLIN TR/POT CLAVULANATE 500-125 MG TAB PO SCH ×2 (05:42→13:05)
[2017-10-04 06:12] LABS: ARTERIAL BLOOD BASE EXCESS 9.6 mmol/L; ARTERIAL BLOOD H2CO3 1.67 mmol/L (1.05-1.35); ARTERIAL BLOOD O2 SATURATION 93.7 % (94-98); ARTERIAL BLOOD PCO2 55.6 mmHg (35-45); ARTERIAL BLOOD PH 7.43 (7.35-7.45); ARTERIAL BLOOD TOTAL CO2 37.7 mmol/L (23-27)
[2017-10-04 06:15] LABS: ARTERIAL BLOOD FIO2 30%
[2017-10-04 06:17] LABS: ABSOLUTE LYMPHOCYTES (AUTO) 0.9 10^3/uL (0.5-4.7); ABSOLUTE MONOCYTES (AUTO) 0.6 10^3/uL (0.1-1.4); ABSOLUTE NEUT (AUTO) 13.4 10^3/uL (1.7-8.2); BASOPHILS % (AUTO) 0.2 % (0-2); EOSINOPHILS % (AUTO) 0.3 % (0-6); HEMATOCRIT 41.1 % (37.9-51.0); HEMOGLOBIN 13.5 g/dL (13.5-17.0); LYMPHOCYTES % (AUTO) 6.2 % (13-45); MEAN CORPUSCULAR HEMOGLOBIN 30.6 pg (27.0-33.4); MEAN CORPUSCULAR HGB CONC 32.9 g/dL (32.0-36.0); MEAN CORPUSCULAR VOLUME 93 fl (80-97); MONOCYTES % (AUTO) 4.3 % (3-13); PLATELET COUNT 441 10^3/uL (150-450); RED BLOOD COUNT 4.42 10^6/uL (4.35-5.55); RED CELL DISTRIBUTION WIDTH 14.4 % (11.5-14.0); TOTAL CELLS COUNTED % (AUTO) 100 %
[2017-10-04 06:42] LABS: ALANINE AMINOTRANSFERASE 29 U/L (21-72); ALKALINE PHOSPHATASE 54 U/L (38-126); ASPARTATE AMINO TRANSFERASE 13 U/L (17-59); BILIRUBIN,DIRECT 0.2 mg/dL (0.0-0.4); BILIRUBIN,TOTAL 0.4 mg/dL (0.2-1.3); BLOOD UREA NITROGEN 26 mg/dL (7-20); CALCIUM 9.5 mg/dL (8.4-10.2); GLUCOSE 115 mg/dL (75-110); POTASSIUM 4.9 mmol/L (3.6-5.0); TOTAL PROTEIN 5.6 g/dL (6.3-8.2)
[2017-10-04 06:49] LABS: CARBON DIOXIDE 36 mmol/L (22-30); CHLORIDE 98 mmol/L (98-107); SODIUM 137.8 mmol/L (137-145)
[2017-10-04 06:52] LABS: ANION GAP 4 (5-19)
[2017-10-04] MEDS: ASPIRIN 81 MG TABLET, CHEWABLE NG SCH (09:44)
[2017-10-04] MEDS: TAMSULOSIN HCL 0.4 MG CAP.SR.24H PO SCH (09:44)
[2017-10-04] MEDS: METOPROLOL TARTRATE 25 MG TABLET PO SCH (09:44)
[2017-10-04] MEDS: ENOXAPARIN SODIUM INJ 40 MG/0.4 ML DISP.SYRIN SUBCUT SCH (09:44)
[2017-10-04] MEDS: CITALOPRAM HYDROBROMIDE 20 MG TABLET PO SCH (09:44)
--- NOTE | 2017-10-04 12:58 | PDOC PROGRESS REPORT ---
Subjective Progress Note for:: 10/04/17 Subjective:: 56-year-old gentleman with a history of COPD and ongoing tobacco use who presented to the hospital with acute hypoxic and hypercapnic respiratory failure and pneumonia for which he required intubation. He was started on broad -spectrum antibiotics. He developed urinary retention and a urinary catheter was placed by Urology on 09/28/17. He was started tube feeds on 09/29/17. Blood cultures positive for Pasturella multocida. He has many cats at home. Repeat blood cultures drawn to confirm resolution. 10/01 Sedated and intubated 10/02 s/p extubation yesterday. Today, he already asking about discharge. 10/03 Asking about discharge. No problems overnight. 10/[address] Kat ordered home oxygen and BiPAP, that he needs before leaving Reason For Visit: SEPSIS,ACUTE HYPERCAPNIC RESPIRATORY FAILURE Physical Exam Vital Signs: Temp Pulse Resp BP Pulse Ox 98.9 F 60 16 118/66 94 10/04/17 12:12 10/04/17 12:12 10/04/17 12:12 10/04/17 12:12 10/04/17 12:12 Intake & Output 10/03/17 10/04/17 10/05/17 06:59 06:59 06:59 Intake Total 30 1750 Output Total 2595 1800 Balance -2565 -50 Weight 103.5 kg 102.9 kg General appearance: PRESENT: obese Head exam: PRESENT: atraumatic, normocephalic Respiratory exam: PRESENT: clear to auscultation abi. ABSENT: rales, rhonchi, wheezes Cardiovascular exam: PRESENT: RRR. ABSENT: diastolic murmur, rubs, systolic murmur Neurological exam: PRESENT: alert, awake, oriented to person, oriented to place , oriented to time, oriented to situation, CN II-XII grossly intact. ABSENT: motor sensory deficit Results Laboratory Results: 10/04/17 05:24 10/04/17 05:24 10/04/17 10/04/17 10/04/17 05:24 05:24 06:00 WBC 15.0 H RBC 4.42 Hgb 13.5 Hct 41.1 MCV 93 MCH 30.6 MCHC 32.9 RDW 14.4 H Plt Count 441 Seg Neutrophils % 89.0 H Lymphocytes % 6.2 L Monocytes % 4.3 Eosinophils % 0.3 Basophils % 0.2 Absolute Neutrophils 13.4 H Absolute Lymphocytes 0.9 Absolute Monocytes 0.6 Absolute Eosinophils 0.0 Absolute Basophils 0.0 Carbonic Acid 1.67 H HCO3/H2CO3 Ratio 21:1 ABG pH 7.43 ABG pCO2 55.6 H ABG pO2 68.0 L ABG HCO3 36.0 H ABG O2 Saturation 93.7 L ABG Base Excess 9.6 FiO2 30% Sodium 137.8 Potassium 4.9 Chloride 98 Carbon Dioxide 36 H Anion Gap 4 L BUN 26 H Creatinine 0.69 Est GFR ( Amer) > 60 Est GFR (Non-Af Amer) > 60 Glucose 115 H Calcium 9.5 Magnesium 2.3 Total Bilirubin 0.4 AST 13 L ALT 29 Alkaline Phosphatase 54 Total Protein 5.6 L Albumin 3.0 L 09/27/17 09/27/17 09/28/17 19:20 19:20 00:36 CK-MB (CK-2) 0.95 1.43 Troponin I 0.166 0.081 NT-Pro-B Natriuret Pep 851 09/28/17 07:28 CK-MB (CK-2) 3.51 Troponin I 0.068 NT-Pro-B Natriuret Pep 395 Impressions: Chest X-Ray 10/03/17 06:00 IMPRESSION: 1. No significant interval change. Assessment & Plan - Diagnosis (1) ARDS (adult respiratory distress syndrome) Is this a current diagnosis for this admission?: No Plan: Extubated 10/01. On nasal cannula. No respiratory issues overnight. He was transitioned to oral antibiotics 10/02 (2) Acute hypercapnic respiratory failure Is this a current diagnosis for this admission?: Yes Plan: See above. Clinically he looks fine. ABG looks better this morning. He wore BiPAP last night. He will need a machine before discharge or he will likely decompensate and require rehospitalization (3) Bilateral pneumonia Qualifiers: Pneumonia type: due to unspecified organism Lung location: unspecified part of lung Qualified Code(s): J18.9 - Pneumonia, unspecified organism Is this a current diagnosis for this admission?: Yes Plan: Continue antibiotics. D#8. According to [employer], PCNs are the drug of choice for Pasturella. Cefriaxone and levofloxacin stopped , and Augmentin started. (4) Urinary retention Is this a current diagnosis for this admission?: Yes Plan: Continue Chan for 2 weeks, then voiding trial. He may need to follow up with urology if he is discharged sooner. i spoke with Dr Paige who placed the current Chan. The patient has urethral stricture(s). He will need outpatient follow up. (5) COPD exacerbation Is this a current diagnosis for this admission?: Yes Plan: See above. defer to pulmonary whether to switch to oral steroids. (6) Depression Qualifiers: Depression Type: unspecified Qualified Code(s): F32.9 - Major depressive disorder, single episode, unspecified Is this a current diagnosis for this admission?: Yes - Time Time Spent with patient: 25-34 minutes Medications reviewed and adjusted accordingly: Yes Anticipated discharge: Home - Inpatient Certification Based on my medical assessment, after consideration of the patient's comorbidities, presenting symptoms, or acuity I expect that the services needed warrant INPATIENT care.: Yes I certify that my determination is in accordance with my understanding of Medicare's requirements for reasonable and necessary INPATIENT services [42 CFR 412.3e].: Yes Medical Necessity: Need Close Monitoring Due to Risk of Patient Decompensation
--- NOTE | 2017-10-04 16:58 | PDOC DISCHARGE SUMMARY ---
General - Admit/Disc Date/PCP Admission Date/Primary Care Provider: 09/27/17 17:28 Discharge Date: 10/04/17 - Discharge Diagnosis (1) ARDS (adult respiratory distress syndrome) Is this a current diagnosis for this admission?: No (2) Acute hypercapnic respiratory failure Is this a current diagnosis for this admission?: Yes (3) Bilateral pneumonia Is this a current diagnosis for this admission?: Yes (4) Urinary retention Is this a current diagnosis for this admission?: Yes (5) COPD exacerbation Is this a current diagnosis for this admission?: Yes (6) Depression Is this a current diagnosis for this admission?: Yes - Additional Information Resuscitation Status: Full Code Discharge Diet: Cardiac Discharge Activity: Activity As Tolerated Prescriptions: Amox Tr/Potassium Clavulanate [Augmentin "500" Tablet] 1 tab PO Q8 7 Days #21 tablet Metoprolol Tartrate [Lopressor 25 mg Tablet] 12.5 mg PO Q12 #60 tablet Prednisone [Deltasone] 20 mg PO DAILY #15 tablet Home Medications: Citalopram Hydrobromide [Celexa 20 mg Tablet] 20 mg PO DAILY 09/27/17 Meloxicam [Mobic] 7.5 mg PO BID 09/27/17 Montelukast Sodium [Singulair 10 mg Tablet] 10 mg PO QHS 09/27/17 Tamsulosin HCl [Flomax 0.4 mg Cap.sr] 0.4 mg PO DAILY 09/27/17 Trazodone HCl [Desyrel] 150 mg PO QHS 09/27/17 Albuterol Sulfate [Ventolin Hfa] 1 - 2 puff IH Q4 PRN 09/29/17 Fluoxetine HCl 20 mg PO BID 09/29/17 Lansoprazole 15 mg PO DAILY 09/29/17 Acetaminophen [Tylenol 325 mg Tablet] 650 mg PO Q6HP PRN tablet 10/04/17 Amox Tr/Potassium Clavulanate [Augmentin "500" Tablet] 1 tab PO Q8 7 Days #21 tablet 10/04/17 Aspirin [Aspirin 81 mg Chewable Tablet] 324 mg NG DAILY tab.chew 10/04/17 Metoprolol Tartrate [Lopressor 25 mg Tablet] 12.5 mg PO Q12 #60 tablet 10/04/17 Prednisone [Deltasone] 20 mg PO DAILY #15 tablet 10/04/17 History of Present Illness History of Present Illness: KAMERON TRUJILLO is a 57 year old male who was brought to the emergency department by EMS because of shortness of breath and hypoxia. Apparently, for 2 -3 days prior to admission he had a cough. His O2 saturation was 78% on room air when EMS found him. In the emergency department he was started on inhaled bronchodilators, steroids, as well as antibiotics. He was placed on BiPAP in the emergency department. An x-ray showed a right lower lobe infiltrate. Hospital Course Hospital Course: 56-year-old gentleman with a history of COPD and ongoing tobacco use who presented to the hospital with acute hypoxic and hypercapnic respiratory failure and pneumonia for which he required intubation. He was started on broad-spectrum antibiotics. He developed urinary retention and a urinary catheter was placed by Urology, Dr Paige on 09/28/17. According to Dr. Paige, Mr. Trujillo has urethral strictures and will need to follow-up with urology as an outpatient to discuss further management may include surgery. He was started tube feeds on 09/29/17. Blood cultures positive for Pasturella multocida. He has many cats at home. Repeat blood cultures were drawn to confirm resolution. 10/01 Sedated and intubated in the morning. 10/02 s/p extubation yesterday. Today, he already asking about discharge. Prior to discharge, home O2 and BiPAP were arranged per Physical Exam Vital Signs: Temp Pulse Resp BP Pulse Ox 97.8 F 65 18 115/64 97 10/04/17 15:26 10/04/17 15:26 10/04/17 15:26 10/04/17 15:26 10/04/17 15:26 Intake & Output 10/03/17 10/04/17 10/05/17 06:59 06:59 06:59 Intake Total 30 1750 Output Total 2595 1800 1100 Balance -2565 -50 -1100 Weight 103.5 kg 102.9 kg General appearance: PRESENT: no acute distress, obese Head exam: PRESENT: atraumatic, normocephalic Eye exam: PRESENT: EOMI, PERRLA Respiratory exam: PRESENT: clear to auscultation abi. ABSENT: rales, rhonchi, wheezes Cardiovascular exam: PRESENT: RRR. ABSENT: diastolic murmur, rubs, systolic murmur GI/Abdominal exam: PRESENT: normal bowel sounds, soft. ABSENT: distended, guarding, mass, organolmegaly, rebound, tenderness Extremities exam: PRESENT: full ROM. ABSENT: calf tenderness, clubbing, pedal edema Neurological exam: PRESENT: alert, awake, oriented to person, oriented to place , oriented to time, oriented to situation, CN II-XII grossly intact. ABSENT: motor sensory deficit Psychiatric exam: PRESENT: appropriate affect, normal mood. ABSENT: homicidal ideation, suicidal ideation Skin exam: PRESENT: dry, intact, warm. ABSENT: cyanosis, rash Results Laboratory Results: 10/04/17 05:24 10/04/17 05:24 10/04/17 10/04/17 10/04/17 05:24 05:24 06:00 WBC 15.0 H RBC 4.42 Hgb 13.5 Hct 41.1 MCV 93 MCH 30.6 MCHC 32.9 RDW 14.4 H Plt Count 441 Seg Neutrophils % 89.0 H Lymphocytes % 6.2 L Monocytes % 4.3 Eosinophils % 0.3 Basophils % 0.2 Absolute Neutrophils 13.4 H Absolute Lymphocytes 0.9 Absolute Monocytes 0.6 Absolute Eosinophils 0.0 Absolute Basophils 0.0 Carbonic Acid 1.67 H HCO3/H2CO3 Ratio 21:1 ABG pH 7.43 ABG pCO2 55.6 H ABG pO2 68.0 L ABG HCO3 36.0 H ABG O2 Saturation 93.7 L ABG Base Excess 9.6 FiO2 30% Sodium 137.8 Potassium 4.9 Chloride 98 Carbon Dioxide 36 H Anion Gap 4 L BUN 26 H Creatinine 0.69 Est GFR ( Amer) > 60 Est GFR (Non-Af Amer) > 60 Glucose 115 H Calcium 9.5 Magnesium 2.3 Total Bilirubin 0.4 AST 13 L ALT 29 Alkaline Phosphatase 54 Total Protein 5.6 L Albumin 3.0 L 09/27/17 09/27/17 09/28/17 19:20 19:20 00:36 CK-MB (CK-2) 0.95 1.43 Troponin I 0.166 0.081 NT-Pro-B Natriuret Pep 851 09/28/17 07:28 CK-MB (CK-2) 3.51 Troponin I 0.068 NT-Pro-B Natriuret Pep 395 Impressions: Chest X-Ray 10/03/17 06:00 IMPRESSION: 1. No significant interval change. Qualifiers - * PATEINT BEING DISCHARGED WITH ANY OF THE FOLLOWING DIAGNOSIS?: No Plan Discharge Plan: Home Time Spent: Greater than 30 Minutes - 40 minutes
[2017-10-04 17:09] VITALS: BP 118/72
[2017-10-04] MEDS: INFLUENZA ADLT QUAD (36MOS+) 2017-18 VAC 0.5 ML SYR IM PRN ×2 (17:17→17:22)
--- NOTE | 2017-10-06 17:09 | PDOC PROGRESS REPORT ---
Subjective Progress Note for:: 10/04/17 Subjective:: Improving patient did not wear BiPAP last night long discussion about PCO2 O2 and the need for BiPAP patient is going to redouble his efforts to try to be compliant with noninvasive positive pressure ventilation Reason For Visit: SEPSIS,ACUTE HYPERCAPNIC RESPIRATORY FAILURE Physical Exam Vital Signs: Temp Pulse Resp BP Pulse Ox 97.8 F 65 18 118/72 97 10/04/17 17:04 10/04/17 17:04 10/04/17 17:04 10/04/17 17:04 10/04/17 17:04 Intake & Output 10/05/17 10/06/17 10/07/17 06:59 06:59 06:59 Output Total 1100 Balance -1100 General appearance: PRESENT: no acute distress, cooperative, obese Head exam: PRESENT: atraumatic, normocephalic Eye exam: PRESENT: conjunctiva pale, EOMI. ABSENT: nystagmus, periorbital swelling, scleral icterus Mouth exam: PRESENT: moist, neck supple, tongue midline Neck exam: ABSENT: carotid bruit, JVD, lymphadenopathy, thyromegaly, tracheal deviation, tracheostomy Respiratory exam: PRESENT: decreased breath sounds, prolonged expiratory phas, rhonchi, symmetrical, unlabored. ABSENT: rales, retraction, stridor, tachypnea Cardiovascular exam: PRESENT: RRR, +S1, +S2 Pulses: PRESENT: normal radial pulses GI/Abdominal exam: PRESENT: diminished bowel sounds, soft Extremities exam: ABSENT: clubbing, joint swelling Musculoskeletal exam: PRESENT: ambulatory. ABSENT: deformity, dislocation Neurological exam: PRESENT: alert, awake Psychiatric exam: PRESENT: normal mood Skin exam: PRESENT: dry, warm Results Laboratory Results: 10/04/17 05:24 10/04/17 05:24 09/27/17 09/27/17 09/28/17 19:20 19:20 00:36 CK-MB (CK-2) 0.95 1.43 Troponin I 0.166 0.081 NT-Pro-B Natriuret Pep 851 09/28/17 07:28 CK-MB (CK-2) 3.51 Troponin I 0.068 NT-Pro-B Natriuret Pep 395 Impressions: Chest X-Ray 10/03/17 06:00 IMPRESSION: 1. No significant interval change. Assessment & Plan - Diagnosis (1) ARDS (adult respiratory distress syndrome) Is this a current diagnosis for this admission?: No (2) Acute hypercapnic respiratory failure Is this a current diagnosis for this admission?: Yes Plan: resolved (3) COPD exacerbation Is this a current diagnosis for this admission?: Yes Plan: Generic Name Dose Route Start Last Admin Trade Name Freq PRN Reason Stop Dose Admin Acetylcysteine 400 mg 09/28/17 14:00 09/28/17 15:09 Mucomist 10% Neb 400 Mg/4 Ml Vial NEB 10/28/17 13:59 400 mg RTQ6 DOMENICA Methylprednisolone Sodium Succinate 40 mg 09/28/17 02:00 09/28/17 18:15 Solu-Medrol Inj/Pf 40 Mg/1 Ml Sdv IV 10/28/17 01:59 40 mg Q8A DOMENICA Albuterol/Ipratropium 3 ml 09/28/17 02:00 09/28/17 15:08 Duoneb 3 Ml Ampul NEB 10/28/17 01:59 3 ml RTQ6 DOMENICA I suspect that the patient is At or near his baseline
== END 2017-10-04 17:53 | disposition home or self-care (01) | DRG 870 ==
LOC: ER 13:29 → EH 17:28 → ICU 23:41 → 3S 10-03 08:59
PROVIDERS: ADMIT Internal Medicine; ATTEND Internal Medicine
PROC: 5A09357 Assistance with Respiratory Ventilation, Less than 24 Consecutive Hours, Continuous Positive Airway Pressure (ICD-10-PCS; 2017-09-27)
PROC: 3E0F73Z Introduction of Anti-inflammatory into Respiratory Tract, Via Natural or Artificial Opening (ICD-10-PCS; 2017-09-27)
PROC: 5A1955Z Respiratory Ventilation, Greater than 96 Consecutive Hours (ICD-10-PCS; principal; 2017-09-28)
PROC: 0BH17EZ Insertion of Endotracheal Airway into Trachea, Via Natural or Artificial Opening (ICD-10-PCS; 2017-09-28)
DX: A41.9 Sepsis, unspecified organism (principal); J18.9 Pneumonia, unspecified organism; J96.01 Acute respiratory failure with hypoxia; J96.02 Acute respiratory failure with hypercapnia; J44.1 Chronic obstructive pulmonary disease with (acute) exacerbation; I10 Essential (primary) hypertension; F32.9 Major depressive disorder, single episode, unspecified; F17.210 Nicotine dependence, cigarettes, uncomplicated; G47.00 Insomnia, unspecified; I48.91 Unspecified atrial fibrillation; N40.1 Benign prostatic hyperplasia with lower urinary tract symptoms; R33.8 Other retention of urine; E66.9 Obesity, unspecified; Z68.34 Body mass index [BMI] 34.0-34.9, adult; Z78.1 Physical restraint status; Z79.899 Other long term (current) drug therapy; Z82.49 Family history of ischemic heart disease and other diseases of the circulatory system
CPT/HCPCS: 36415; 36600; 71045; 80048; 80053; 80061; 80202; 80307; 82550; 82553; 82803; 82962; 83036; 83605; 83735; 83880; 84100; 84439; 84443; 84484; 85025; 85610; 85730; 87040; 87070; 87077; 87205; 93005; 93010; 94002; 94003; 94640; 94660; 94799; 96365; 96367; 99291; J0456; J0696; J1100; J1650; J1956; J2250; J2704; J2920; J3370; J3480; J3490; J7030; J7060; J7620; S0164

== ENCOUNTER 2017-10-21 12:40 | Inpatient (IN) | payer BC ==
--- NOTE | 2017-10-21 13:59 | ER Document Report ---
ED Respiratory Problem - General Chief Complaint: Shortness Of Breath Stated Complaint: ABNORMAL LABS Time Seen by Provider: 10/21/17 13:17 Mode of Arrival: Ambulatory Information source: Patient, Relative - TRAVEL OUTSIDE OF THE [place] IN LAST 30 DAYS: No - HPI Patient complains to provider of: Short of breath Notes: Patient is here with his at the bedside. Here with complaints of shortness of breath. The patient has been battling some shortness of breath for over a month now. At the end of last month he was actually admitted and intubated for respiratory failure, sepsis, bilateral pneumonia. He was seen at the primary doctor's office after that admission and was on antibiotics again. Over the last several weeks he has become more short of breath, is now has swelling up through his abdomen and has gained about 10-15 pounds in the last several days. No prior history of CHF. He does have a history of COPD. He is a former smoker. He has had no fevers. No nausea, vomiting, diarrhea. No chest pain. Short of breath at rest as well as with exertion. He denies any numbness, tingling, weakness. He denies any other complaints at this time. - Related Data Allergies/Adverse Reactions: No Known Allergies Allergy (Verified 10/21/17 13:20) Past Medical History - Social History Smoking Status: Former Smoker Chew tobacco use (# tins/day): Yes Frequency of alcohol use: None Drug Abuse: None Family History: Reviewed & Not Pertinent Patient has suicidal ideation: No Patient has homicidal ideation: No - Past Medical History Cardiac Medical History: Reports: Hx Hypertension Denies: Hx Atrial Fibrillation, Hx Congestive Heart Failure Pulmonary Medical History: Reports: Hx COPD Endocrine Medical History: Denies: Hx Diabetes Mellitus Type 1, Hx Diabetes Mellitus Type 2 Renal/ Medical History: Denies: Hx Peritoneal Dialysis Psychiatric Medical History: Reports: Hx Depression Review of Systems - Review of Systems -: Yes All other systems reviewed and negative Physical Exam - Vital signs Vitals: Temp 97.5 F 10/21/17 12:49 - Notes Notes: GENERAL: alert, cooperative, nontoxic, no distress. HEAD: normocephalic, atraumatic EYES: conjunctiva pink without discharge, no external redness or swelling. EARS: no external swelling, no external redness NOSE: atraumatic, no external swelling MOUTH/THROAT: mucous membranes moist and pink, posterior pharynx without erythema, swelling, exudate. No trismus or drooling. NECK: soft, supple, full range of motion, no meningismus. CHEST: no distress, lungs clear and equal throughout. Next Tory wheezing with crackles and fair air movement throughout. CARDIAC: regular rate and rhythm, no murmur, normal capillary refill, normal pulses. Pitting edema to both lower extremities bilaterally involving the entire lower extremities. ABDOMEN: Soft, nontender. Pitting edema to the mid abdomen. No tenderness. No mass. BACK: full range of motion, no CVA tenderness. EXTREMITIES: full range of motion of all extremities. No redness. NEURO: alert and oriented x 3, no focal deficits, full range of motion of all extremities. PYSCH: appropriate mood, affect. Patient is cooperative. SKIN: pink, warm, dry, no rash. Course - Vital Signs Vital signs: Temp Pulse Resp BP Pulse Ox 97.5 F 86 26 H 127/70 H 95 10/21/17 12:49 10/21/17 12:51 10/21/17 16:00 10/21/17 14:00 10/21/17 16:00 10/21/17 16:29 Patient is here with complaints of shortness of breath weight gain and swelling. Patient was recently admitted for pneumonia and was actually intubated. Over the last week things have gotten worse. Chest x-ray shows no pneumonia or other significant acute abnormalities. EKG is unremarkable for acute findings. Troponin is negative. BNP is elevated at over 500. Patient is noted to have pitting edema up to his abdomen consistent with right-sided heart failure. Patient was given Lasix. Patient will be admitted to the hospital for further evaluation and management. ABG shows hypoxia as well as an elevated CO2. The patient at this point is breathing with mild increased work of breathing. Case was discussed with Dr. Pacheco who has accepted the admission. - Laboratory Result Diagrams: 10/21/17 13:13 10/21/17 13:13 Laboratory results interpreted by me: 10/21/17 10/21/17 10/21/17 13:13 13:13 14:25 RBC 4.15 L Hgb 13.1 L RDW 15.7 H Carbonic Acid 1.94 H ABG pCO2 64.6 H ABG pO2 69.1 L ABG HCO3 35.8 H ABG Total CO2 37.8 H ABG O2 Saturation 92.7 L Chloride 96 L Carbon Dioxide 38 H BUN 29 H Direct Bilirubin 0.5 H Total Protein 5.8 L Albumin 3.1 L - Diagnostic Test Radiology reviewed: Image reviewed, Reports reviewed - No acute findings - EKG Interpretation by Me EKG shows normal: Sinus rhythm, Mcgrath, Intervals, QRS Complexes, ST-T Waves Rate: Normal When compared to previous EKG there are: No significant change Discharge - Discharge Clinical Impression: Hypoxia CHF (congestive heart failure) Qualifiers: Heart failure type: unspecified Heart failure chronicity: acute Qualified Code( s): I50.9 - Heart failure, unspecified Dyspnea Qualifiers: Dyspnea type: unspecified Qualified Code(s): R06.00 - Dyspnea, unspecified Condition: Stable Disposition: ADMITTED INPATIENT Admitting Provider: Hospitalist [facility] Unit Admitted: Telemetry Referrals: BRIANNA CASTANEDA FNP-C [Primary Care Provider] - Follow up as needed
[2017-10-21 14:02] LABS: ABSOLUTE BASOPHILS # (AUTO) 0.1 10^3/uL (0.0-0.2); ABSOLUTE EOSINOPHILS # (AUTO) 0.2 10^3/uL (0.0-0.6); ABSOLUTE LYMPHOCYTES (AUTO) 1.3 10^3/uL (0.5-4.7); ABSOLUTE MONOCYTES (AUTO) 0.4 10^3/uL (0.1-1.4); ABSOLUTE NEUT (AUTO) 5.9 10^3/uL (1.7-8.2); BASOPHILS % (AUTO) 0.7 % (0-2); HEMATOCRIT 39.5 % (37.9-51.0); HEMOGLOBIN 13.1 g/dL (13.5-17.0); LYMPHOCYTES % (AUTO) 16.1 % (13-45); MEAN CORPUSCULAR HEMOGLOBIN 31.5 pg (27.0-33.4); MEAN CORPUSCULAR HGB CONC 33.1 g/dL (32.0-36.0); MEAN CORPUSCULAR VOLUME 95 fl (80-97); MONOCYTES % (AUTO) 5.6 % (3-13); PLATELET COUNT 177 10^3/uL (150-450); RED BLOOD COUNT 4.15 10^6/uL (4.35-5.55); RED CELL DISTRIBUTION WIDTH 15.7 % (11.5-14.0); SEGMENTED NEUTROPHILS % (AUTO) 75.6 % (42-78); TOTAL CELLS COUNTED % (AUTO) 100 %; WHITE BLOOD COUNT 7.8 10^3/uL (4.0-10.5)
[2017-10-21 14:17] LABS: ALANINE AMINOTRANSFERASE 34 U/L (21-72); ALBUMIN 3.1 g/dL (3.5-5.0); ALKALINE PHOSPHATASE 66 U/L (38-126); ASPARTATE AMINO TRANSFERASE 25 U/L (17-59); BILIRUBIN,DIRECT 0.5 mg/dL (0.0-0.4); BILIRUBIN,TOTAL 0.5 mg/dL (0.2-1.3); BLOOD UREA NITROGEN 29 mg/dL (7-20); CALCIUM 8.9 mg/dL (8.4-10.2); CHLORIDE 96 mmol/L (98-107); GLUCOSE 109 mg/dL (75-110); POTASSIUM 4.1 mmol/L (3.6-5.0); SODIUM 143.2 mmol/L (137-145); TOTAL PROTEIN 5.8 g/dL (6.3-8.2)
[2017-10-21 14:27] LABS: ANION GAP 9 (5-19)
[2017-10-21 14:28] LABS: CARBON DIOXIDE 38 mmol/L (22-30)
[2017-10-21 14:32] LABS: NT PRO BNP 501 pg/mL (5-900)
[2017-10-21 14:34] LABS: TROPONIN I < 0.012 ng/mL
--- NOTE | 2017-10-21 14:35 | RADIOLOGY REPORT (SQ) ---
EXAM DESCRIPTION: CHEST 2 VIEWS COMPLETED DATE/TIME: 10/21/2017 2:16 pm REASON FOR STUDY: cough, hypoxic COMPARISON: 10/03/2017. EXAM PARAMETERS: NUMBER OF VIEWS: two views TECHNIQUE: Digital Frontal and Lateral radiographic views of the chest acquired. RADIATION DOSE: NA LIMITATIONS: none FINDINGS: LUNGS AND PLEURA: Eventration of the right hemidiaphragm. Mild basilar atelectasis/ scarr ing. No large pleural effusion. No pneumothorax. MEDIASTINUM AND HILAR STRUCTURES: No masses or contour abnormalities. HEART AND VASCULAR STRUCTURES: Heart normal size. No evidence for failure. BONES: No acute findings. HARDWARE: None in the chest. OTHER: No other significant finding. IMPRESSION: CHRONIC EVENTRATION OF THE RIGHT HEMIDIAPHRAGM. MILD BASILAR ATELECTASIS/SCARRING. TECHNICAL DOCUMENTATION: JOB ID: [id number] [email or web address] All Rights Reserved Reading location - IP/workstation name: [email or web address]
[2017-10-21 14:47] LABS: ARTERIAL BLOOD BASE EXCESS 8.2 mmol/L; ARTERIAL BLOOD FIO2 28%; ARTERIAL BLOOD H2CO3 1.94 mmol/L (1.05-1.35); ARTERIAL BLOOD HCO3 35.8 mmol/L (20-26); ARTERIAL BLOOD O2 SATURATION 92.7 % (94-98); ARTERIAL BLOOD PCO2 64.6 mmHg (35-45); ARTERIAL BLOOD PH 7.36 (7.35-7.45); ARTERIAL BLOOD PO2 69.1 mmHg (80-100); ARTERIAL BLOOD TOTAL CO2 37.8 mmol/L (23-27)
[2017-10-21] MEDS ORDERED: OXYCODONE-ACETAMINOPHEN 5-325 MG TABLET PO PRN (16:24)
[2017-10-21] MEDS ORDERED: ONDANSETRON HCL INJ/PF 4 MG/2 ML SDV IV PRN (16:24)
[2017-10-21] MEDS ORDERED: ALBUTEROL SULFATE 0.083% NEB 2.5 MG/3 ML AMPUL NEB PRN (16:24)
[2017-10-21] MEDS ORDERED: FUROSEMIDE INJ/PF 40 MG/4 ML SDV IV ONE (16:25)
--- NOTE | 2017-10-21 17:16 | PDOC H&P ---
History of Present Illness Admission Date/PCP: KIMBERLEY ZHONG Patient complains of: Swelling and pain on both feet. History of Present Illness: KAMERON TRUJILLO is a 57 year old male was referred from his PCPs office because open presentation patient complained of pain and swelling of his both feet, getting around 25 pounds over the course of 4 days and shortness of breath. Patient denies chest pain, cough, fever or chills. He had been using BiPAP regularly for 1 week. He states that he quit smoking 6 weeks ago. He normally uses 3-4 L of oxygen however during the past couple of days he had been using up to 5 L. He admits also having a history of COPD. He has required intubation. He also refers history of high blood pressure. While in emergency room his blood pressure was 127/70, heart rate 89 respiratory rate 30. BNP was significant since it was 501. Since he appeared to be in congestive heart failure the hospitalist service was consulted for further management and prompted to admit after patient was evaluated. Past Medical History Cardiac Medical History: Reports: Hypertension Denies: Atrial Fibrillation, Congestive Heart Failure Pulmonary Medical History: Reports: Chronic Obstructive Pulmonary Disease (COPD) , Intubation, Respiratory Failure EENT Medical History: Reports: None Neurological Medical History: Reports: None Endocrine Medical History: Reports: None Denies: Diabetes Mellitus Type 1, Diabetes Mellitus Type 2 Renal/ Medical History: Reports: None Malignancy Medical History: Reports: None GI Medical History: Reports: None Musculoskeltal Medical History: Reports: None Skin Medical History: Reports: None Psychiatric Medical History: Reports: Depression Traumatic Medical History: Reports: None Hematology: Reports: None Infectious Medical History: Reports: None Past Surgical History Past Surgical History: Reports: None Social History Information Source: Patient Smoking Status: Former Smoker Frequency of Alcohol Use: Occasional Hx Recreational Drug Use: No Drugs: None Hx Prescription Drug Abuse: No - Advance Directive Resuscitation Status: Full Code Family History Family History: Reviewed & Not Pertinent, Hypertension Parental Family History Reviewed: Yes Children Family History Reviewed: Yes Sibling(s) Family History Reviewed.: Yes Medication/Allergy Home Medications: Citalopram Hydrobromide [Celexa 20 mg Tablet] 20 mg PO DAILY 09/27/17 Meloxicam [Mobic] 7.5 mg PO BID 09/27/17 Montelukast Sodium [Singulair 10 mg Tablet] 10 mg PO QHS 09/27/17 Tamsulosin HCl [Flomax 0.4 mg Cap.sr] 0.4 mg PO DAILY 09/27/17 Trazodone HCl [Desyrel] 150 mg PO QHS 09/27/17 Albuterol Sulfate [Ventolin Hfa] 1 - 2 puff IH Q4 PRN 09/29/17 Fluoxetine HCl 20 mg PO BID 09/29/17 Lansoprazole 15 mg PO DAILY 09/29/17 Acetaminophen [Tylenol 325 mg Tablet] 650 mg PO Q6HP PRN tablet 10/04/17 Amox Tr/Potassium Clavulanate [Augmentin "500" Tablet] 1 tab PO Q8 7 Days #21 tablet 10/04/17 Aspirin [Aspirin 81 mg Chewable Tablet] 324 mg NG DAILY tab.chew 10/04/17 Metoprolol Tartrate [Lopressor 25 mg Tablet] 12.5 mg PO Q12 #60 tablet 10/04/17 Prednisone [Deltasone] 20 mg PO DAILY #15 tablet 10/04/17 Allergies/Adverse Reactions: No Known Allergies Allergy (Verified 10/21/17 13:20) Review of Systems Constitutional: PRESENT: fatigue Eyes: ABSENT: visual disturbances Ears: ABSENT: hearing changes Nose, Mouth, and Throat: ABSENT: mouth pain, sore throat Cardiovascular: PRESENT: dyspnea on exertion, edema. ABSENT: chest pain Respiratory: PRESENT: dyspnea Gastrointestinal: ABSENT: abdominal pain, nausea, vomiting Genitourinary: ABSENT: dysuria, hematuria Musculoskeletal: PRESENT: deformity, other - Leg swelling Neurological: ABSENT: convulsions, dizziness, focal weakness Physical Exam Vital Signs: Temp Pulse Resp BP Pulse Ox 97.5 F 86 26 H 127/70 H 95 10/21/17 12:49 10/21/17 12:51 10/21/17 16:00 10/21/17 14:00 10/21/17 16:00 Intake & Output 10/20/17 10/21/17 10/22/17 06:59 06:59 06:59 Weight 119.8 kg General appearance: PRESENT: mild distress, morbidly obese Head exam: PRESENT: atraumatic, normocephalic Eye exam: PRESENT: conjunctiva pink, EOMI, PERRLA Ear exam: PRESENT: normal external ear exam Mouth exam: PRESENT: moist, neck supple Neck exam: PRESENT: full ROM. ABSENT: JVD, lymphadenopathy, tenderness Respiratory exam: PRESENT: clear to auscultation abi, decreased breath sounds Cardiovascular exam: PRESENT: RRR. ABSENT: diastolic murmur, systolic murmur Vascular exam: PRESENT: normal capillary refill GI/Abdominal exam: PRESENT: distended, normal bowel sounds, soft. ABSENT: tenderness Extremities exam: PRESENT: full ROM, other - 4+ edema Musculoskeletal exam: PRESENT: ambulatory Neurological exam: PRESENT: alert, awake, oriented to person, oriented to place , oriented to time, oriented to situation, CN II-XII grossly intact Psychiatric exam: PRESENT: appropriate affect, normal mood Skin exam: PRESENT: normal color Results Laboratory Results: 10/21/17 13:13 10/21/17 13:13 10/21/17 10/21/17 10/21/17 13:13 13:13 14:25 WBC 7.8 RBC 4.15 L Hgb 13.1 L Hct 39.5 MCV 95 MCH 31.5 MCHC 33.1 RDW 15.7 H Plt Count 177 Seg Neutrophils % 75.6 Lymphocytes % 16.1 Monocytes % 5.6 Eosinophils % 2.0 Basophils % 0.7 Absolute Neutrophils 5.9 Absolute Lymphocytes 1.3 Absolute Monocytes 0.4 Absolute Eosinophils 0.2 Absolute Basophils 0.1 Carbonic Acid 1.94 H HCO3/H2CO3 Ratio 18:1 ABG pH 7.36 ABG pCO2 64.6 H ABG pO2 69.1 L ABG HCO3 35.8 H ABG O2 Saturation 92.7 L ABG Base Excess 8.2 FiO2 28% Sodium 143.2 Potassium 4.1 Chloride 96 L Carbon Dioxide 38 H Anion Gap 9 BUN 29 H Creatinine 0.76 Est GFR ( Amer) > 60 Est GFR (Non-Af Amer) > 60 Glucose 109 Calcium 8.9 Total Bilirubin 0.5 AST 25 ALT 34 Alkaline Phosphatase 66 Total Protein 5.8 L Albumin 3.1 L 10/21/17 13:13 Troponin I < 0.012 NT-Pro-B Natriuret Pep 501 Impressions: Chest X-Ray 10/21/17 13:19 IMPRESSION: CHRONIC EVENTRATION OF THE RIGHT HEMIDIAPHRAGM. MILD BASILAR ATELECTASIS/SCARRING. Assessment & Plan - Diagnosis (1) CHF (congestive heart failure) Qualifiers: Heart failure type: right-sided Heart failure chronicity: acute on chronic Qualified Code(s): I50.813 - Acute on chronic right heart failure Is this a current diagnosis for this admission?: Yes Plan: We will proceed with diuresis and will watch BMP and magnesium closely (2) COPD (chronic obstructive pulmonary disease) Is this a current diagnosis for this admission?: Yes Plan: Patient does not have an exacerbation however will place on DuoNeb's to improve respiratory status. Will add Advair, Daliresp and Singulair (3) Chronic respiratory failure Qualifiers: Respiratory failure complication: hypoxia and hypercapnia Qualified Code(s) : J96.11 - Chronic respiratory failure with hypoxia; J96.12 - Chronic respiratory failure with hypercapnia; J96.12 - Chronic respiratory failure with hypercapnia; J96.12 - Chronic respiratory failure with hypercapnia Is this a current diagnosis for this admission?: Yes Plan: We will continue with BiPAP and oxygen supplementation (4) Morbid obesity with BMI of 40.0-44.9, adult Is this a current diagnosis for this admission?: Yes Plan: Considering his overall presentation and pulmonary status he will benefit from losing weight and lifestyle modifications. Dietitian consult (5) HTN (hypertension) Qualifiers: Hypertension type: essential hypertension Qualified Code(s): I10 - Essential (primary) hypertension Is this a current diagnosis for this admission?: Yes Plan: Anticipate to continue outpatient regimen once med rec posted for reconciliation (6) Anasarca Is this a current diagnosis for this admission?: Yes Plan: Due to right-sided failure. Will proceed with diuresis (7) Depression Qualifiers: Psychotic features: without psychotic features Is this a current diagnosis for this admission?: Yes Plan: We will start Wellbutrin since may also help with his weight - Time Time Spent: 50 to 70 Minutes Medications reviewed and adjusted accordingly: Yes Anticipated discharge: Home Within: within 72 hours - Inpatient Certification Based on my medical assessment, after consideration of the patient's comorbidities, presenting symptoms, or acuity I expect that the services needed warrant INPATIENT care.: Yes I certify that my determination is in accordance with my understanding of Medicare's requirements for reasonable and necessary INPATIENT services [42 CFR 412.3e].: Yes Medical Necessity: Need Close Monitoring Due to Risk of Patient Decompensation, Need For Continuous Telemetry Monitoring, Need for Nebulizer Therapy and Monitoring of Response
--- NOTE | 2017-10-21 19:38 | EKG REPORT ---
SEVERITY:- ABNORMAL ECG - SINUS RHYTHM BORDERLINE T WAVE ABNORMALITIES POOR R WAVE PROGRESSION ANTERIOR LEADS : Confirmed by: Reno Lemon MD 21-Oct-2017 19:37:33
[2017-10-21] MEDS: IPRATROPIUM/ALBUTEROL 0.5-2.5 MG/3 ML AMPUL NEB SCH (21:02)
[2017-10-21] MEDS ORDERED: ZOLPIDEM TARTRATE 5 MG TABLET PO PRN (22:00)
[2017-10-22] MEDS ORDERED: DISULFIRAM 250 MG TABLET ONE (00:55)
[2017-10-22] MEDS ORDERED: DISULFIRAM 250 MG TABLET PO ONE (01:00)
[2017-10-22] MEDS: MONTELUKAST SODIUM 10 MG TABLET PO SCH ×2 (01:06→21:03)
[2017-10-22] MEDS: FLUTICASONE/SALMETEROL DISKUS 500-50 MCG/DOSE IH SCH ×3 (01:07→21:07)
[2017-10-22] MEDS: HEPARIN SOD (PORCINE) 5,000 UNIT/ML 1 ML SYRINGE SUBCUT SCH ×4 (01:07→21:03)
[2017-10-22] MEDS: FUROSEMIDE INJ/PF 40 MG/4 ML SDV IV SCH ×2 (01:07→10:53)
[2017-10-22 05:13] LABS: ABSOLUTE BASOPHILS # (AUTO) 0.1 10^3/uL (0.0-0.2); ABSOLUTE EOSINOPHILS # (AUTO) 0.3 10^3/uL (0.0-0.6); ABSOLUTE LYMPHOCYTES (AUTO) 1.9 10^3/uL (0.5-4.7); ABSOLUTE MONOCYTES (AUTO) 0.7 10^3/uL (0.1-1.4); ABSOLUTE NEUT (AUTO) 5.4 10^3/uL (1.7-8.2); BASOPHILS % (AUTO) 0.6 % (0-2); EOSINOPHILS % (AUTO) 3.1 % (0-6); HEMATOCRIT 36.6 % (37.9-51.0); HEMOGLOBIN 12.3 g/dL (13.5-17.0); LYMPHOCYTES % (AUTO) 22.8 % (13-45); MEAN CORPUSCULAR HEMOGLOBIN 31.6 pg (27.0-33.4); MEAN CORPUSCULAR HGB CONC 33.5 g/dL (32.0-36.0); MEAN CORPUSCULAR VOLUME 94 fl (80-97); MONOCYTES % (AUTO) 8.7 % (3-13); PLATELET COUNT 179 10^3/uL (150-450); RED BLOOD COUNT 3.88 10^6/uL (4.35-5.55); RED CELL DISTRIBUTION WIDTH 16.3 % (11.5-14.0); SEGMENTED NEUTROPHILS % (AUTO) 64.8 % (42-78); TOTAL CELLS COUNTED % (AUTO) 100 %; WHITE BLOOD COUNT 8.4 10^3/uL (4.0-10.5)
[2017-10-22 05:38] LABS: BLOOD UREA NITROGEN 27 mg/dL (7-20); CHLORIDE 94 mmol/L (98-107); GLUCOSE 96 mg/dL (75-110); POTASSIUM 3.9 mmol/L (3.6-5.0); SODIUM 140.8 mmol/L (137-145)
[2017-10-22 05:52] LABS: CARBON DIOXIDE 43 mmol/L (22-30)
[2017-10-22 06:59] LABS: ANION GAP 4 (5-19)
[2017-10-22] MEDS: IPRATROPIUM/ALBUTEROL 0.5-2.5 MG/3 ML AMPUL NEB SCH ×3 (08:06→19:48)
[2017-10-22] MEDS: BUPROPION HCL 100 MG TABLET PO SCH (10:53)
[2017-10-22] MEDS: DISULFIRAM 250 MG TABLET PO SCH ×2 (10:53→18:09)
[2017-10-22] MEDS: ROFLUMILAST 500 MCG TABLET PO SCH (10:54)
[2017-10-22] MEDS ORDERED: ALPRAZOLAM 0.5 MG TABLET PO PRN (15:29)
--- NOTE | 2017-10-22 15:37 | PDOC PROGRESS REPORT ---
Subjective Progress Note for:: 10/22/17 Subjective:: Patient relates that breathing is some better when compared to admission. He was able to use the BiPAP the whole night. Review of systems All organ systems evaluated and negative except as in subjective All significant diagnostics and laboratories have been reviewed Reason For Visit: RIGHT SIDED HEART FAILURE Physical Exam Vital Signs: Temp Pulse Resp BP Pulse Ox 97.7 F 68 18 120/94 H 95 10/22/17 04:01 10/22/17 04:01 10/22/17 04:01 10/22/17 04:01 10/22/17 04:01 Intake & Output 10/21/17 10/22/17 10/23/17 06:59 06:59 06:59 Output Total 1350 Balance -1350 Weight 119.8 kg General appearance: PRESENT: no acute distress, cooperative, morbidly obese Head exam: PRESENT: atraumatic, normocephalic Eye exam: PRESENT: conjunctiva pink, EOMI, PERRLA Ear exam: PRESENT: normal external ear exam Mouth exam: PRESENT: moist Neck exam: PRESENT: full ROM. ABSENT: JVD, lymphadenopathy, tenderness Respiratory exam: PRESENT: clear to auscultation abi, decreased breath sounds Cardiovascular exam: PRESENT: RRR. ABSENT: diastolic murmur, systolic murmur Vascular exam: PRESENT: normal capillary refill GI/Abdominal exam: PRESENT: normal bowel sounds, soft. ABSENT: tenderness - 3+ edema Extremities exam: PRESENT: full ROM Musculoskeletal exam: PRESENT: ambulatory Neurological exam: PRESENT: alert, awake, oriented to person, oriented to place , oriented to time, oriented to situation, CN II-XII grossly intact Psychiatric exam: PRESENT: anxious, depressed Skin exam: PRESENT: normal color Results Laboratory Results: 10/22/17 04:34 10/22/17 04:34 10/22/17 10/22/17 04:34 04:34 WBC 8.4 RBC 3.88 L Hgb 12.3 L Hct 36.6 L MCV 94 MCH 31.6 MCHC 33.5 RDW 16.3 H Plt Count 179 Seg Neutrophils % 64.8 Lymphocytes % 22.8 Monocytes % 8.7 Eosinophils % 3.1 Basophils % 0.6 Absolute Neutrophils 5.4 Absolute Lymphocytes 1.9 Absolute Monocytes 0.7 Absolute Eosinophils 0.3 Absolute Basophils 0.1 Sodium 140.8 Potassium 3.9 Chloride 94 L Carbon Dioxide 43 H* Anion Gap 4 L BUN 27 H Creatinine 0.87 Est GFR ( Amer) > 60 Est GFR (Non-Af Amer) > 60 Glucose 96 Calcium 9.0 Magnesium 1.7 10/21/17 10/21/17 10/22/17 17:19 22:25 04:34 Troponin I < 0.012 < 0.012 < 0.012 Impressions: Chest X-Ray 10/21/17 13:19 IMPRESSION: CHRONIC EVENTRATION OF THE RIGHT HEMIDIAPHRAGM. MILD BASILAR ATELECTASIS/SCARRING. Assessment & Plan - Diagnosis (1) CHF (congestive heart failure) Qualifiers: Heart failure type: right-sided Heart failure chronicity: acute on chronic Qualified Code(s): I50.813 - Acute on chronic right heart failure Is this a current diagnosis for this admission?: Yes Plan: Increase Lasix IV. Monitor BMP (2) COPD (chronic obstructive pulmonary disease) Qualifiers: Emphysema type: unspecified Is this a current diagnosis for this admission?: Yes Plan: Continue present management (3) Chronic respiratory failure Qualifiers: Respiratory failure complication: hypoxia and hypercapnia Qualified Code(s) : J96.11 - Chronic respiratory failure with hypoxia; J96.12 - Chronic respiratory failure with hypercapnia; J96.12 - Chronic respiratory failure with hypercapnia; J96.12 - Chronic respiratory failure with hypercapnia Is this a current diagnosis for this admission?: Yes Plan: Will adjust BiPAP settings and continue oxygen supplementation. Bicarb elevated in BMP (4) Morbid obesity with BMI of 40.0-44.9, adult Is this a current diagnosis for this admission?: Yes Plan: Considering his overall presentation and pulmonary status he will benefit from losing weight and lifestyle modifications. Dietitian consult (5) HTN (hypertension) Qualifiers: Hypertension type: essential hypertension Qualified Code(s): I10 - Essential (primary) hypertension Is this a current diagnosis for this admission?: Yes Plan: Will hold off lisinopril 40 mg p.o. daily since blood pressure on the low side. However will place patient on Toprol-XL due to past history of atrial fibrillation which likely relates to possibly sleep apnea component however patient has not been tested in this regard (6) Anasarca Is this a current diagnosis for this admission?: Yes Plan: Due to right-sided failure. Increase Lasix dose. No weight loss since admission (7) Depression Qualifiers: Psychotic features: without psychotic features Is this a current diagnosis for this admission?: Yes Plan: Continue Prozac and Wellbutrin. Add low-dose Xanax for anxiety while in-house - Time Time Spent with patient: 15-24 minutes Medications reviewed and adjusted accordingly: Yes Anticipated discharge: Home Within: within 72 hours - Inpatient Certification Based on my medical assessment, after consideration of the patient's comorbidities, presenting symptoms, or acuity I expect that the services needed warrant INPATIENT care.: Yes I certify that my determination is in accordance with my understanding of Medicare's requirements for reasonable and necessary INPATIENT services [42 CFR 412.3e].: Yes Medical Necessity: Need Close Monitoring Due to Risk of Patient Decompensation, Need for Nebulizer Therapy and Monitoring of Response
[2017-10-22] MEDS: FUROSEMIDE INJ/PF 100 MG/10 ML SDV IV SCH (18:09)
[2017-10-22] MEDS: FLUOXETINE HCL 20 MG CAPSULE PO SCH (18:09)
[2017-10-22] MEDS: TRAZODONE HCL 50 MG TABLET PO SCH (21:02)
[2017-10-22] MEDS ORDERED: (PENDING PHARMACY ID) (Trazodone Hcl [Desyrel] 150 MG) PO SCH (22:00)
[2017-10-23 05:22] LABS: ABSOLUTE EOSINOPHILS # (AUTO) 0.3 10^3/uL (0.0-0.6); ABSOLUTE LYMPHOCYTES (AUTO) 1.7 10^3/uL (0.5-4.7); ABSOLUTE MONOCYTES (AUTO) 0.7 10^3/uL (0.1-1.4); ABSOLUTE NEUT (AUTO) 4.2 10^3/uL (1.7-8.2); BASOPHILS % (AUTO) 0.7 % (0-2); HEMATOCRIT 37.6 % (37.9-51.0); HEMOGLOBIN 12.5 g/dL (13.5-17.0); LYMPHOCYTES % (AUTO) 24.9 % (13-45); MEAN CORPUSCULAR HEMOGLOBIN 31.5 pg (27.0-33.4); MEAN CORPUSCULAR HGB CONC 33.4 g/dL (32.0-36.0); MEAN CORPUSCULAR VOLUME 94 fl (80-97); MONOCYTES % (AUTO) 9.6 % (3-13); PLATELET COUNT 171 10^3/uL (150-450); RED BLOOD COUNT 3.99 10^6/uL (4.35-5.55); RED CELL DISTRIBUTION WIDTH 16.3 % (11.5-14.0); SEGMENTED NEUTROPHILS % (AUTO) 60.8 % (42-78); TOTAL CELLS COUNTED % (AUTO) 100 %; WHITE BLOOD COUNT 6.9 10^3/uL (4.0-10.5)
[2017-10-23 05:48] LABS: BLOOD UREA NITROGEN 23 mg/dL (7-20); CHLORIDE 91 mmol/L (98-107); GLUCOSE 111 mg/dL (75-110); POTASSIUM 3.5 mmol/L (3.6-5.0); SODIUM 139.5 mmol/L (137-145)
[2017-10-23] MEDS: FUROSEMIDE INJ/PF 100 MG/10 ML SDV IV SCH ×2 (05:53→17:27)
[2017-10-23] MEDS: HEPARIN SOD (PORCINE) 5,000 UNIT/ML 1 ML SYRINGE SUBCUT SCH ×3 (05:54→22:14)
[2017-10-23 05:56] LABS: ANION GAP 6 (5-19)
[2017-10-23 05:58] LABS: CARBON DIOXIDE 43 mmol/L (22-30)
[2017-10-23] MEDS ORDERED: POTASSIUM CHLORIDE 10 MEQ TABLET.SA PO ONE (06:58)
[2017-10-23] MEDS: IPRATROPIUM/ALBUTEROL 0.5-2.5 MG/3 ML AMPUL NEB SCH ×3 (09:03→20:24)
[2017-10-23] MEDS: BUPROPION HCL 100 MG TABLET PO SCH (09:50)
[2017-10-23] MEDS: FLUOXETINE HCL 20 MG CAPSULE PO SCH ×2 (09:51→17:27)
[2017-10-23] MEDS: DISULFIRAM 250 MG TABLET PO SCH ×2 (09:51→17:27)
[2017-10-23] MEDS: FLUTICASONE/SALMETEROL DISKUS 500-50 MCG/DOSE IH SCH ×2 (09:52→22:06)
[2017-10-23] MEDS: METOPROLOL SUCCINATE 25 MG TAB.SR.24H PO SCH (09:53)
[2017-10-23] MEDS: ROFLUMILAST 500 MCG TABLET PO SCH (09:54)
[2017-10-23] MEDS: TAMSULOSIN HCL 0.4 MG CAP.SR.24H PO SCH (09:55)
[2017-10-23 10:14] LABS: ARTERIAL BLOOD BASE EXCESS 13.6 mmol/L; ARTERIAL BLOOD H2CO3 1.88 mmol/L (1.05-1.35); ARTERIAL BLOOD HCO3 40.8 mmol/L (20-26); ARTERIAL BLOOD O2 SATURATION 98.1 % (94-98); ARTERIAL BLOOD PCO2 62.5 mmHg (35-45); ARTERIAL BLOOD PH 7.43 (7.35-7.45); ARTERIAL BLOOD TOTAL CO2 42.8 mmol/L (23-27)
[2017-10-23 10:15] LABS: ARTERIAL BLOOD FIO2 3L
[2017-10-23] MEDS: LACTULOSE SYRUP 20 GM/30 ML UDCUP PO SCH ×2 (11:06→22:14)
--- NOTE | 2017-10-23 18:05 | PDOC PROGRESS REPORT ---
Subjective Progress Note for:: 10/23/17 Subjective:: Patient relates that breathing is some better when compared to admission. Patient complains of constipation. Patient advised to ask his to bring his BiPAP machine to use it while in-house. He reports that he has been urinating a lot Review of systems All organ systems evaluated and negative except as in subjective All significant diagnostics and laboratories have been reviewed Reason For Visit: RIGHT SIDED HEART FAILURE Physical Exam Vital Signs: Temp Pulse Resp BP Pulse Ox 97.9 F 63 19 113/61 96 10/23/17 04:23 10/23/17 04:23 10/23/17 04:23 10/23/17 04:23 10/23/17 04:23 Intake & Output 10/21/17 10/22/17 10/23/17 06:59 06:59 06:59 Intake Total 1191 Output Total 1350 1500 Balance -1350 -309 Weight 119.8 kg 119.8 kg General appearance: PRESENT: no acute distress, cooperative, morbidly obese Head exam: PRESENT: atraumatic, normocephalic Eye exam: PRESENT: conjunctiva pink, EOMI, PERRLA Ear exam: PRESENT: normal external ear exam Mouth exam: PRESENT: moist Neck exam: PRESENT: full ROM. ABSENT: JVD, lymphadenopathy, tenderness Respiratory exam: ABSENT: clear to auscultation abi Cardiovascular exam: PRESENT: RRR. ABSENT: diastolic murmur, systolic murmur Vascular exam: PRESENT: normal capillary refill GI/Abdominal exam: PRESENT: normal bowel sounds, soft. ABSENT: tenderness Extremities exam: PRESENT: full ROM, other Musculoskeletal exam: PRESENT: ambulatory Neurological exam: PRESENT: alert, awake, oriented to person, oriented to place , oriented to time, oriented to situation, CN II-XII grossly intact Psychiatric exam: PRESENT: appropriate affect, normal mood Skin exam: PRESENT: normal color Results Laboratory Results: 10/23/17 04:35 10/23/17 04:35 10/22/17 10/23/17 10/23/17 04:34 04:35 04:35 WBC 6.9 RBC 3.99 L Hgb 12.5 L Hct 37.6 L MCV 94 MCH 31.5 MCHC 33.4 RDW 16.3 H Plt Count 171 Seg Neutrophils % 60.8 Lymphocytes % 24.9 Monocytes % 9.6 Eosinophils % 4.0 Basophils % 0.7 Absolute Neutrophils 4.2 Absolute Lymphocytes 1.7 Absolute Monocytes 0.7 Absolute Eosinophils 0.3 Absolute Basophils 0.0 Sodium 139.5 Potassium 3.5 L Chloride 91 L Carbon Dioxide 43 H* Anion Gap 4 L 6 BUN 23 H Creatinine 0.85 Est GFR ( Amer) > 60 Est GFR (Non-Af Amer) > 60 Glucose 111 H Calcium 9.0 Magnesium 1.8 10/21/17 10/21/17 10/22/17 17:19 22:25 04:34 Troponin I < 0.012 < 0.012 < 0.012 Impressions: Chest X-Ray 10/21/17 13:19 IMPRESSION: CHRONIC EVENTRATION OF THE RIGHT HEMIDIAPHRAGM. MILD BASILAR ATELECTASIS/SCARRING. Assessment & Plan - Diagnosis (1) CHF (congestive heart failure) Qualifiers: Heart failure type: right-sided Heart failure chronicity: acute on chronic Qualified Code(s): I50.813 - Acute on chronic right heart failure Is this a current diagnosis for this admission?: Yes Plan: Continue current Lasix dose. Recent weight check there is a drop of 5 kg. Monitor BMP (2) COPD (chronic obstructive pulmonary disease) Qualifiers: Emphysema type: unspecified Is this a current diagnosis for this admission?: Yes Plan: Continue present management (3) Chronic respiratory failure Qualifiers: Respiratory failure complication: hypoxia and hypercapnia Qualified Code(s) : J96.11 - Chronic respiratory failure with hypoxia; J96.12 - Chronic respiratory failure with hypercapnia; J96.12 - Chronic respiratory failure with hypercapnia; J96.12 - Chronic respiratory failure with hypercapnia Is this a current diagnosis for this admission?: Yes Plan: Advised to bring BiPAP from home (4) Morbid obesity with BMI of 40.0-44.9, adult Is this a current diagnosis for this admission?: Yes Plan: Considering his overall presentation and pulmonary status he will benefit from losing weight and lifestyle modifications. Dietitian consult (5) HTN (hypertension) Qualifiers: Hypertension type: essential hypertension Qualified Code(s): I10 - Essential (primary) hypertension Is this a current diagnosis for this admission?: Yes Plan: To continue current management (6) Anasarca Is this a current diagnosis for this admission?: Yes Plan: Due to right-sided failure. Continue current treatment since weight coming down (7) Depression Qualifiers: Psychotic features: without psychotic features Is this a current diagnosis for this admission?: Yes Plan: Continue Prozac and Wellbutrin and low-dose Xanax for anxiety while in-house (8) Constipation Qualifiers: Constipation type: unspecified constipation type Qualified Code(s): K59.00 - Constipation, unspecified Is this a current diagnosis for this admission?: Yes Plan: Add bowel regimen - Time Time Spent with patient: 15-24 minutes Medications reviewed and adjusted accordingly: Yes Anticipated discharge: Home Within: within 72 hours - Inpatient Certification Based on my medical assessment, after consideration of the patient's comorbidities, presenting symptoms, or acuity I expect that the services needed warrant INPATIENT care.: Yes I certify that my determination is in accordance with my understanding of Medicare's requirements for reasonable and necessary INPATIENT services [42 CFR 412.3e].: Yes Medical Necessity: Need Close Monitoring Due to Risk of Patient Decompensation, Need For Continuous Telemetry Monitoring, Need for Nebulizer Therapy and Monitoring of Response
[2017-10-23] MEDS: ZOLPIDEM TARTRATE 5 MG TABLET PO SCH (22:06)
[2017-10-23] MEDS: MONTELUKAST SODIUM 10 MG TABLET PO SCH (22:07)
[2017-10-23] MEDS: TRAZODONE HCL 50 MG TABLET PO SCH (22:07)
[2017-10-24 05:32] LABS: ABSOLUTE BASOPHILS # (AUTO) 0.1 10^3/uL (0.0-0.2); ABSOLUTE EOSINOPHILS # (AUTO) 0.2 10^3/uL (0.0-0.6); ABSOLUTE LYMPHOCYTES (AUTO) 1.8 10^3/uL (0.5-4.7); ABSOLUTE MONOCYTES (AUTO) 0.9 10^3/uL (0.1-1.4); ABSOLUTE NEUT (AUTO) 4.8 10^3/uL (1.7-8.2); BASOPHILS % (AUTO) 0.8 % (0-2); EOSINOPHILS % (AUTO) 3.2 % (0-6); HEMATOCRIT 39.2 % (37.9-51.0); LYMPHOCYTES % (AUTO) 22.7 % (13-45); MEAN CORPUSCULAR HEMOGLOBIN 31.3 pg (27.0-33.4); MEAN CORPUSCULAR HGB CONC 33.2 g/dL (32.0-36.0); MEAN CORPUSCULAR VOLUME 94 fl (80-97); PLATELET COUNT 190 10^3/uL (150-450); RED BLOOD COUNT 4.16 10^6/uL (4.35-5.55); SEGMENTED NEUTROPHILS % (AUTO) 62.3 % (42-78); TOTAL CELLS COUNTED % (AUTO) 100 %; WHITE BLOOD COUNT 7.8 10^3/uL (4.0-10.5)
[2017-10-24] MEDS: HEPARIN SOD (PORCINE) 5,000 UNIT/ML 1 ML SYRINGE SUBCUT SCH ×3 (05:45→21:29)
[2017-10-24] MEDS: FUROSEMIDE INJ/PF 100 MG/10 ML SDV IV SCH (05:45)
[2017-10-24 05:54] LABS: BLOOD UREA NITROGEN 22 mg/dL (7-20); CALCIUM 9.4 mg/dL (8.4-10.2); CHLORIDE 92 mmol/L (98-107); GLUCOSE 90 mg/dL (75-110); POTASSIUM 4.6 mmol/L (3.6-5.0); SODIUM 140.4 mmol/L (137-145)
[2017-10-24 06:14] LABS: CARBON DIOXIDE 45 mmol/L (22-30)
[2017-10-24 06:21] LABS: ANION GAP 3 (5-19)
[2017-10-24] MEDS ORDERED: ONDANSETRON HCL INJ/PF 4 MG/2 ML SDV IV PRN (08:00)
[2017-10-24] MEDS: IPRATROPIUM/ALBUTEROL 0.5-2.5 MG/3 ML AMPUL NEB SCH ×3 (08:16→20:08)
[2017-10-24] MEDS: BUPROPION HCL 100 MG TABLET PO SCH (09:02)
[2017-10-24] MEDS: FLUTICASONE/SALMETEROL DISKUS 500-50 MCG/DOSE IH SCH ×2 (09:03→21:29)
[2017-10-24] MEDS: DISULFIRAM 250 MG TABLET PO SCH ×2 (09:03→18:11)
[2017-10-24] MEDS: TAMSULOSIN HCL 0.4 MG CAP.SR.24H PO SCH (09:03)
[2017-10-24] MEDS: METOPROLOL SUCCINATE 25 MG TAB.SR.24H PO SCH (09:03)
[2017-10-24] MEDS: ROFLUMILAST 500 MCG TABLET PO SCH (09:03)
[2017-10-24] MEDS: FLUOXETINE HCL 20 MG CAPSULE PO SCH ×2 (09:07→18:12)
[2017-10-24] MEDS: LACTULOSE SYRUP 20 GM/30 ML UDCUP PO SCH ×2 (09:07→21:33)
--- NOTE | 2017-10-24 16:47 | PDOC PROGRESS REPORT ---
Subjective Progress Note for:: 10/24/17 Subjective:: Patient reports that for the first time was able to sleep last night. Has been able to lose 7 kg since admission. Nurse at bedside and instructed to remove water jug since patient he is supposed to be on a 1500 mL fluid restriction. Patient states that he was able to move his bowels. He is also a little bit disappointed because his feet are still swollen Review of systems All organ systems evaluated and negative except as in subjective All significant diagnostics and laboratories have been reviewed Reason For Visit: RIGHT SIDED HEART FAILURE Physical Exam Vital Signs: Temp Pulse Resp BP Pulse Ox 97.9 F 57 L 20 100/58 L 95 10/24/17 03:46 10/24/17 03:46 10/24/17 03:46 10/24/17 03:46 10/24/17 03:46 Intake & Output 10/23/17 10/24/17 10/25/17 06:59 06:59 06:59 Intake Total 1191 735 Output Total 1500 1850 Balance -309 -1115 Weight 119.8 kg 112 kg General appearance: PRESENT: no acute distress, cooperative, morbidly obese Head exam: PRESENT: atraumatic, normocephalic Eye exam: PRESENT: conjunctiva pink, EOMI, PERRLA Ear exam: PRESENT: normal external ear exam Neck exam: PRESENT: full ROM. ABSENT: JVD, lymphadenopathy, tenderness Respiratory exam: PRESENT: clear to auscultation abi Cardiovascular exam: PRESENT: RRR. ABSENT: diastolic murmur, systolic murmur Vascular exam: PRESENT: normal capillary refill GI/Abdominal exam: PRESENT: normal bowel sounds, soft. ABSENT: tenderness Extremities exam: PRESENT: full ROM, pedal edema, +2 edema Musculoskeletal exam: PRESENT: ambulatory Neurological exam: PRESENT: alert, awake, oriented to person, oriented to place , oriented to time, oriented to situation, CN II-XII grossly intact Psychiatric exam: PRESENT: appropriate affect, normal mood Skin exam: PRESENT: normal color Results Laboratory Results: 10/24/17 04:41 10/24/17 04:41 10/23/17 10/24/17 10/24/17 09:40 04:41 04:41 WBC 7.8 RBC 4.16 L Hgb 13.0 L Hct 39.2 MCV 94 MCH 31.3 MCHC 33.2 RDW 16.0 H Plt Count 190 Seg Neutrophils % 62.3 Lymphocytes % 22.7 Monocytes % 11.0 Eosinophils % 3.2 Basophils % 0.8 Absolute Neutrophils 4.8 Absolute Lymphocytes 1.8 Absolute Monocytes 0.9 Absolute Eosinophils 0.2 Absolute Basophils 0.1 Carbonic Acid 1.88 H HCO3/H2CO3 Ratio 21:1 ABG pH 7.43 ABG pCO2 62.5 H ABG pO2 114.0 H ABG HCO3 40.8 H ABG O2 Saturation 98.1 H ABG Base Excess 13.6 FiO2 3L Sodium 140.4 Potassium 4.6 Chloride 92 L Carbon Dioxide 45 H* Anion Gap 3 L BUN 22 H Creatinine 1.04 Est GFR ( Amer) > 60 Est GFR (Non-Af Amer) > 60 Glucose 90 Calcium 9.4 Magnesium 2.1 10/21/17 10/21/17 10/22/17 17:19 22:25 04:34 Troponin I < 0.012 < 0.012 < 0.012 Impressions: Chest X-Ray 10/21/17 13:19 IMPRESSION: CHRONIC EVENTRATION OF THE RIGHT HEMIDIAPHRAGM. MILD BASILAR ATELECTASIS/SCARRING. Assessment & Plan - Diagnosis (1) CHF (congestive heart failure) Qualifiers: Heart failure type: right-sided Heart failure chronicity: acute on chronic Qualified Code(s): I50.813 - Acute on chronic right heart failure Is this a current diagnosis for this admission?: Yes Plan: Will decrease Lasix dose since there is a slight bump in creatinine and blood pressures going down. Will place patient on Midodrine drain (2) COPD (chronic obstructive pulmonary disease) Qualifiers: Emphysema type: unspecified Is this a current diagnosis for this admission?: Yes Plan: Continue present management (3) Chronic respiratory failure Qualifiers: Respiratory failure complication: hypoxia and hypercapnia Qualified Code(s) : J96.11 - Chronic respiratory failure with hypoxia; J96.12 - Chronic respiratory failure with hypercapnia; J96.12 - Chronic respiratory failure with hypercapnia; J96.12 - Chronic respiratory failure with hypercapnia Is this a current diagnosis for this admission?: Yes Plan: Reminded bring BiPAP from home. Continue BiPAP in-house (4) Morbid obesity with BMI of 40.0-44.9, adult Is this a current diagnosis for this admission?: Yes Plan: Considering his overall presentation and pulmonary status he will benefit from losing weight and lifestyle modifications. Patient seen by dietitian (5) HTN (hypertension) Qualifiers: Hypertension type: essential hypertension Qualified Code(s): I10 - Essential (primary) hypertension Is this a current diagnosis for this admission?: Yes Plan: To continue current management but to add Midodrine due to right-sided component (6) Anasarca Is this a current diagnosis for this admission?: Yes Plan: Due to right-sided failure. Weight going down (7) Depression Qualifiers: Psychotic features: without psychotic features Is this a current diagnosis for this admission?: Yes Plan: Continue Prozac, Wellbutrin and low-dose Xanax for anxiety while in-house (8) Constipation Qualifiers: Constipation type: unspecified constipation type Qualified Code(s): K59.00 - Constipation, unspecified Is this a current diagnosis for this admission?: Yes Plan: Continue bowel regimen - Time Time Spent with patient: 15-24 minutes Medications reviewed and adjusted accordingly: Yes Anticipated discharge: Home Within: within 48 hours - Inpatient Certification Based on my medical assessment, after consideration of the patient's comorbidities, presenting symptoms, or acuity I expect that the services needed warrant INPATIENT care.: Yes I certify that my determination is in accordance with my understanding of Medicare's requirements for reasonable and necessary INPATIENT services [42 CFR 412.3e].: Yes Medical Necessity: Significant Comorbidiites Make Outpatient Treatment Too Risky , Need Close Monitoring Due to Risk of Patient Decompensation
[2017-10-24] MEDS: FUROSEMIDE INJ/PF 40 MG/4 ML SDV IV SCH (18:11)
[2017-10-24] MEDS: MIDODRINE HCL 5 MG TABLET PO SCH (18:11)
[2017-10-24] MEDS: TRAZODONE HCL 50 MG TABLET PO SCH (21:25)
[2017-10-24] MEDS: MONTELUKAST SODIUM 10 MG TABLET PO SCH (21:26)
[2017-10-24] MEDS: ZOLPIDEM TARTRATE 5 MG TABLET PO SCH (21:26)
[2017-10-25] MEDS: FUROSEMIDE INJ/PF 40 MG/4 ML SDV IV SCH ×2 (05:23→19:21)
[2017-10-25] MEDS: HEPARIN SOD (PORCINE) 5,000 UNIT/ML 1 ML SYRINGE SUBCUT SCH ×3 (06:13→22:01)
[2017-10-25 06:30] LABS: ANION GAP 5 (5-19); BLOOD UREA NITROGEN 26 mg/dL (7-20); CALCIUM 9.3 mg/dL (8.4-10.2); CARBON DIOXIDE 36 mmol/L (22-30); CHLORIDE 98 mmol/L (98-107); GLUCOSE 87 mg/dL (75-110); POTASSIUM 4.8 mmol/L (3.6-5.0); SODIUM 139.3 mmol/L (137-145)
[2017-10-25] MEDS: IPRATROPIUM/ALBUTEROL 0.5-2.5 MG/3 ML AMPUL NEB SCH ×3 (08:17→20:06)
[2017-10-25] MEDS: BUPROPION HCL 100 MG TABLET PO SCH (10:06)
[2017-10-25] MEDS: DISULFIRAM 250 MG TABLET PO SCH ×2 (10:06→19:19)
[2017-10-25] MEDS: TAMSULOSIN HCL 0.4 MG CAP.SR.24H PO SCH (10:06)
[2017-10-25] MEDS: METOPROLOL SUCCINATE 25 MG TAB.SR.24H PO SCH (10:07)
[2017-10-25] MEDS: FLUOXETINE HCL 20 MG CAPSULE PO SCH ×2 (10:07→19:18)
[2017-10-25] MEDS: MIDODRINE HCL 5 MG TABLET PO SCH ×3 (10:08→19:20)
[2017-10-25] MEDS: ROFLUMILAST 500 MCG TABLET PO SCH (10:08)
[2017-10-25] MEDS: FLUTICASONE/SALMETEROL DISKUS 500-50 MCG/DOSE IH SCH ×2 (10:08→21:59)
[2017-10-25] MEDS: LACTULOSE SYRUP 20 GM/30 ML UDCUP PO SCH ×2 (10:09→21:58)
[2017-10-25] MEDS ORDERED: BISACODYL 10 MG SUPP.RECT PR PRN (12:49)
--- NOTE | 2017-10-25 17:44 | PDOC PROGRESS REPORT ---
Subjective Progress Note for:: 10/25/17 Subjective:: Patient reports his swelling is better. Not back to normal. He is chest pain free. No cough or sputum. No fever. Sleeping a little bit better. Trying to adhere to his fluid restriction. Feels constipated. Reason For Visit: RIGHT SIDED HEART FAILURE Physical Exam Vital Signs: Temp Pulse Resp BP Pulse Ox 97.7 F 50 L 20 101/65 95 10/25/17 16:00 10/25/17 16:00 10/25/17 16:00 10/25/17 16:00 10/25/17 16:00 Intake & Output 10/24/17 10/25/17 10/26/17 06:59 06:59 06:59 Intake Total 735 1483 Output Total 1850 3375 Balance -1115 -1892 Weight 112 kg 112.1 kg General appearance: PRESENT: no acute distress, cooperative, obese Head exam: PRESENT: atraumatic, normocephalic Eye exam: PRESENT: conjunctiva pink, EOMI. ABSENT: scleral icterus Mouth exam: PRESENT: moist, tongue midline Neck exam: ABSENT: lymphadenopathy, tenderness Respiratory exam: PRESENT: decreased breath sounds, unlabored. ABSENT: rales, rhonchi, wheezes Cardiovascular exam: PRESENT: RRR. ABSENT: systolic murmur Pulses: PRESENT: normal radial pulses GI/Abdominal exam: PRESENT: normal bowel sounds, soft. ABSENT: distended, guarding, mass, tenderness Rectal exam: PRESENT: deferred Gentrourinary exam: PRESENT: indwelling catheter - Her yellow urine Extremities exam: PRESENT: pedal edema, +2 edema Musculoskeletal exam: PRESENT: ambulatory Neurological exam: PRESENT: alert, awake, oriented to person, oriented to place , oriented to situation, CN II-XII grossly intact Psychiatric exam: PRESENT: appropriate affect. ABSENT: anxious Skin exam: PRESENT: dry, intact - With the exception of the erythema and moisture over the distal legs correlating with the edema, warm Results Laboratory Results: 10/24/17 04:41 10/25/17 05:17 10/25/17 05:17 Sodium 139.3 Potassium 4.8 Chloride 98 Carbon Dioxide 36 H Anion Gap 5 BUN 26 H Creatinine 0.93 Est GFR ( Amer) > 60 Est GFR (Non-Af Amer) > 60 Glucose 87 Calcium 9.3 Magnesium 2.2 0410/21/17 10/22/17 17:19 22:25 04:34 Troponin I < 0.012 < 0.012 < 0.012 Impressions: Chest X-Ray 10/21/17 13:19 IMPRESSION: CHRONIC EVENTRATION OF THE RIGHT HEMIDIAPHRAGM. MILD BASILAR ATELECTASIS/SCARRING. Assessment & Plan - Diagnosis (1) Anasarca Is this a current diagnosis for this admission?: Yes Plan: Diuresis with Lasix has been effective. Patient tolerating well. We will continue current dosing and continue to monitor renal function and edema. (2) CHF (congestive heart failure) Qualifiers: Heart failure type: right-sided Heart failure chronicity: acute on chronic Qualified Code(s): I50.813 - Acute on chronic right heart failure Is this a current diagnosis for this admission?: Yes Plan: Patient is hemodynamically stable. We will continue current care including Lasix.. (3) COPD (chronic obstructive pulmonary disease) Qualifiers: Emphysema type: unspecified Is this a current diagnosis for this admission?: Yes Plan: Stable, continue current care (4) Chronic respiratory failure Qualifiers: Respiratory failure complication: hypoxia and hypercapnia Qualified Code(s) : J96.11 - Chronic respiratory failure with hypoxia; J96.12 - Chronic respiratory failure with hypercapnia; J96.12 - Chronic respiratory failure with hypercapnia; J96.12 - Chronic respiratory failure with hypercapnia Is this a current diagnosis for this admission?: Yes Plan: We will continue to treat underlying conditions. Weight loss would help the patient does not seem motivated. We will continue to discuss. (5) Constipation Qualifiers: Constipation type: unspecified constipation type Qualified Code(s): K59.00 - Constipation, unspecified Is this a current diagnosis for this admission?: Yes Plan: Have added senna twice daily and Dulcolax suppository. (6) Depression Qualifiers: Psychotic features: without psychotic features Is this a current diagnosis for this admission?: Yes Plan: Patient is feeling pretty well today. Will continue with his Prozac and Wellbutrin. Will also continue low-dose as needed Xanax secondary to anxiety. (7) HTN (hypertension) Qualifiers: Hypertension type: essential hypertension Qualified Code(s): I10 - Essential (primary) hypertension Is this a current diagnosis for this admission?: Yes Plan: Patient is on midodrine for hypotension. Will try to wean off over the next day or 2. (8) Morbid obesity with BMI of 40.0-44.9, adult Is this a current diagnosis for this admission?: Yes Plan: Once patient is feeling better we will see if he is motivated to have a serious discussion about weight loss. - Time Time Spent with patient: 15-24 minutes Medications reviewed and adjusted accordingly: Yes - Inpatient Certification Based on my medical assessment, after consideration of the patient's comorbidities, presenting symptoms, or acuity I expect that the services needed warrant INPATIENT care.: Yes I certify that my determination is in accordance with my understanding of Medicare's requirements for reasonable and necessary INPATIENT services [42 CFR 412.3e].: Yes Medical Necessity: Significant Comorbidiites Make Outpatient Treatment Too Risky , Need Close Monitoring Due to Risk of Patient Decompensation, Need For Continuous Telemetry Monitoring, Risk of Complication if Not Cared For in Hospital
[2017-10-25] MEDS: SENNOSIDES/DOCUSATE 8.6-50 MG 1 EACH TABLET PO SCH (19:18)
[2017-10-25] MEDS: MONTELUKAST SODIUM 10 MG TABLET PO SCH (21:59)
[2017-10-25] MEDS: TRAZODONE HCL 50 MG TABLET PO SCH (23:08)
[2017-10-25] MEDS: ZOLPIDEM TARTRATE 5 MG TABLET PO SCH (23:08)
[2017-10-26] MEDS: HEPARIN SOD (PORCINE) 5,000 UNIT/ML 1 ML SYRINGE SUBCUT SCH ×3 (06:20→21:53)
[2017-10-26] MEDS: FUROSEMIDE INJ/PF 40 MG/4 ML SDV IV SCH (06:30)
[2017-10-26 07:12] LABS: ANION GAP 5 (5-19); BLOOD UREA NITROGEN 24 mg/dL (7-20); CALCIUM 9.5 mg/dL (8.4-10.2); CARBON DIOXIDE 39 mmol/L (22-30); CHLORIDE 97 mmol/L (98-107); GLUCOSE 89 mg/dL (75-110); POTASSIUM 4.3 mmol/L (3.6-5.0); SODIUM 140.6 mmol/L (137-145)
[2017-10-26] MEDS: IPRATROPIUM/ALBUTEROL 0.5-2.5 MG/3 ML AMPUL NEB SCH ×3 (08:25→19:56)
[2017-10-26] MEDS: METOPROLOL SUCCINATE 25 MG TAB.SR.24H PO SCH (09:19)
[2017-10-26] MEDS: FLUOXETINE HCL 20 MG CAPSULE PO SCH ×2 (09:19→17:32)
[2017-10-26] MEDS: SENNOSIDES/DOCUSATE 8.6-50 MG 1 EACH TABLET PO SCH ×2 (09:19→17:30)
[2017-10-26] MEDS: MIDODRINE HCL 5 MG TABLET PO SCH ×3 (09:19→17:32)
[2017-10-26] MEDS: FLUTICASONE/SALMETEROL DISKUS 500-50 MCG/DOSE IH SCH ×2 (09:19→21:53)
[2017-10-26] MEDS: BUPROPION HCL 100 MG TABLET PO SCH (09:19)
[2017-10-26] MEDS: LACTULOSE SYRUP 20 GM/30 ML UDCUP PO SCH (09:19)
[2017-10-26] MEDS: DISULFIRAM 250 MG TABLET PO SCH ×2 (09:19→17:32)
[2017-10-26] MEDS: ROFLUMILAST 500 MCG TABLET PO SCH (09:19)
[2017-10-26] MEDS: TAMSULOSIN HCL 0.4 MG CAP.SR.24H PO SCH (09:20)
--- NOTE | 2017-10-26 15:18 | PDOC PROGRESS REPORT ---
Subjective Progress Note for:: 10/26/17 Subjective:: Patient notes that his swelling is much improved today. He is able to ambulate around his room without difficulty. He is urinating without difficulty. He has moved his bowels several times since yesterday. No chest pain. No difficulty breathing. No cough fever or chills. Appetite is good. Reason For Visit: RIGHT SIDED HEART FAILURE Physical Exam Vital Signs: Temp Pulse Resp BP Pulse Ox 97.7 F 64 18 105/73 96 10/26/17 12:45 10/26/17 14:00 10/26/17 13:58 10/26/17 12:45 10/26/17 13:58 Intake & Output 10/25/17 10/26/17 10/27/17 06:59 06:59 06:59 Intake Total 1483 1561 Output Total 3375 4145 Balance -1892 -874 Weight 112.1 kg 112.1 kg General appearance: PRESENT: no acute distress, cooperative, obese Head exam: PRESENT: atraumatic, normocephalic Eye exam: PRESENT: EOMI. ABSENT: scleral icterus Mouth exam: PRESENT: moist, neck supple Neck exam: ABSENT: lymphadenopathy, tenderness Respiratory exam: PRESENT: clear to auscultation abi, unlabored. ABSENT: rales , rhonchi, wheezes Cardiovascular exam: PRESENT: RRR. ABSENT: systolic murmur Pulses: PRESENT: normal radial pulses GI/Abdominal exam: PRESENT: normal bowel sounds, soft. ABSENT: distended, guarding, tenderness Rectal exam: PRESENT: deferred Extremities exam: PRESENT: +1 edema, other - Sacral and thigh edema resolved. Musculoskeletal exam: PRESENT: ambulatory Neurological exam: PRESENT: alert, awake, oriented to person, oriented to place , oriented to situation, CN II-XII grossly intact Psychiatric exam: PRESENT: appropriate affect. ABSENT: anxious Skin exam: PRESENT: dry, warm Results Laboratory Results: 10/24/17 04:41 10/26/17 05:27 10/26/17 05:27 Sodium 140.6 Potassium 4.3 Chloride 97 L Carbon Dioxide 39 H Anion Gap 5 BUN 24 H Creatinine 0.88 Est GFR ( Amer) > 60 Est GFR (Non-Af Amer) > 60 Glucose 89 Calcium 9.5 10/21/17 10/21/17 10/22/17 17:19 22:25 04:34 Troponin I < 0.012 < 0.012 < 0.012 Impressions: Chest X-Ray 10/21/17 13:19 IMPRESSION: CHRONIC EVENTRATION OF THE RIGHT HEMIDIAPHRAGM. MILD BASILAR ATELECTASIS/SCARRING. Assessment & Plan - Diagnosis (1) Anasarca Is this a current diagnosis for this admission?: Yes Plan: This is resolving. I am transitioning the patient to p.o. Lasix. He still has some distal leg edema. (2) CHF (congestive heart failure) Qualifiers: Heart failure type: right-sided Heart failure chronicity: acute on chronic Qualified Code(s): I50.813 - Acute on chronic right heart failure Is this a current diagnosis for this admission?: Yes Plan: Likely right heart failure. Echocardiogram pending. Continue to treat with diuresis. Continue metoprolol. (3) COPD (chronic obstructive pulmonary disease) Qualifiers: Emphysema type: unspecified Is this a current diagnosis for this admission?: Yes Plan: Stable, no changes to be made today. (4) Chronic respiratory failure Qualifiers: Respiratory failure complication: hypoxia and hypercapnia Qualified Code(s) : J96.11 - Chronic respiratory failure with hypoxia; J96.12 - Chronic respiratory failure with hypercapnia; J96.12 - Chronic respiratory failure with hypercapnia; J96.12 - Chronic respiratory failure with hypercapnia Is this a current diagnosis for this admission?: Yes Plan: Secondary to heart failure, obesity, possibly sleep apnea, COPD. We will continue to treat underlying acute conditions. Will encourage lifestyle changes including weight loss. (5) Constipation Qualifiers: Constipation type: unspecified constipation type Qualified Code(s): K59.00 - Constipation, unspecified Is this a current diagnosis for this admission?: Yes Plan: Resolved. Lactulose discontinued. Will continue twice daily senna and as needed Dulcolax suppository. (6) Depression Qualifiers: Psychotic features: without psychotic features Is this a current diagnosis for this admission?: Yes Plan: Stable, continue current medications. (7) HTN (hypertension) Qualifiers: Hypertension type: essential hypertension Qualified Code(s): I10 - Essential (primary) hypertension Is this a current diagnosis for this admission?: Yes Plan: Blood pressure is improving. Patient is been on midodrine 2.5 mg p.o. every 8 hours for the past several days. We will start to wean this off as diuresis is becoming less aggressive. (8) Morbid obesity with BMI of 40.0-44.9, adult Is this a current diagnosis for this admission?: Yes Plan: We will continue to encourage the importance of weight loss prevent other medical problems related to obesity. - Time Time Spent with patient: 25-34 minutes Medications reviewed and adjusted accordingly: Yes - Inpatient Certification Based on my medical assessment, after consideration of the patient's comorbidities, presenting symptoms, or acuity I expect that the services needed warrant INPATIENT care.: Yes I certify that my determination is in accordance with my understanding of Medicare's requirements for reasonable and necessary INPATIENT services [42 CFR 412.3e].: Yes Medical Necessity: Need Close Monitoring Due to Risk of Patient Decompensation, Risk of Complication if Not Cared For in Hospital
[2017-10-26] MEDS ORDERED: SIMETHICONE 80 MG TAB.CHEW PO PRN (17:48)
[2017-10-26] MEDS: TRAZODONE HCL 50 MG TABLET PO SCH (21:53)
[2017-10-26] MEDS: MONTELUKAST SODIUM 10 MG TABLET PO SCH (21:53)
[2017-10-27] MEDS: HEPARIN SOD (PORCINE) 5,000 UNIT/ML 1 ML SYRINGE SUBCUT SCH ×3 (05:04→22:15)
[2017-10-27] MEDS: IPRATROPIUM/ALBUTEROL 0.5-2.5 MG/3 ML AMPUL NEB SCH ×2 (08:06→13:42)
[2017-10-27] MEDS: BUPROPION HCL 100 MG TABLET PO SCH (09:35)
[2017-10-27] MEDS: DISULFIRAM 250 MG TABLET PO SCH ×2 (09:35→17:47)
[2017-10-27] MEDS: METOPROLOL SUCCINATE 25 MG TAB.SR.24H PO SCH (09:36)
[2017-10-27] MEDS: FLUTICASONE/SALMETEROL DISKUS 500-50 MCG/DOSE IH SCH ×2 (09:36→22:16)
[2017-10-27] MEDS: FUROSEMIDE 40 MG TABLET PO SCH (09:36)
[2017-10-27] MEDS: FLUOXETINE HCL 20 MG CAPSULE PO SCH ×2 (09:36→17:47)
[2017-10-27] MEDS: MIDODRINE HCL 5 MG TABLET PO SCH ×3 (09:36→17:47)
[2017-10-27] MEDS: TAMSULOSIN HCL 0.4 MG CAP.SR.24H PO SCH (09:37)
[2017-10-27] MEDS: SENNOSIDES/DOCUSATE 8.6-50 MG 1 EACH TABLET PO SCH (09:37)
[2017-10-27] MEDS: ROFLUMILAST 500 MCG TABLET PO SCH (09:37)
[2017-10-27 11:23] LABS: ANION GAP 7 (5-19); BLOOD UREA NITROGEN 26 mg/dL (7-20); CALCIUM 9.9 mg/dL (8.4-10.2); CARBON DIOXIDE 34 mmol/L (22-30); CHLORIDE 98 mmol/L (98-107); GLUCOSE 89 mg/dL (75-110); POTASSIUM 4.9 mmol/L (3.6-5.0)
[2017-10-27] MEDS: ACETAMINOPHEN 325 MG TABLET PO PRN ×2 (11:50→20:00)
[2017-10-27] MEDS ORDERED: IPRATROPIUM/ALBUTEROL 0.5-2.5 MG/3 ML AMPUL NEB PRN (16:07)
--- NOTE | 2017-10-27 16:19 | PDOC PROGRESS REPORT ---
Subjective Progress Note for:: 10/27/17 Subjective:: Patient is breathing pretty well. His swelling in his legs is about the same as yesterday. Appetite is fair. He moved his bowels. No urinary discomfort or problems. No abdominal pain nausea or vomiting. No fever or chills. No wheezing. No chest pain. Reason For Visit: RIGHT SIDED HEART FAILURE Physical Exam Vital Signs: Temp Pulse Resp BP Pulse Ox 97.7 F 60 16 106/69 96 10/27/17 16:03 10/27/17 16:03 10/27/17 16:03 10/27/17 16:03 10/27/17 16:04 Intake & Output 10/26/17 10/27/17 10/28/17 06:59 06:59 06:59 Intake Total 1561 1854 Output Total 2435 3000 Balance -874 -1146 Weight 112.1 kg 107.2 kg General appearance: PRESENT: no acute distress, cooperative, morbidly obese Head exam: PRESENT: atraumatic, normocephalic Eye exam: PRESENT: EOMI Mouth exam: PRESENT: neck supple, tongue midline Respiratory exam: PRESENT: clear to auscultation abi, unlabored. ABSENT: rales , rhonchi, wheezes Cardiovascular exam: PRESENT: RRR. ABSENT: systolic murmur GI/Abdominal exam: PRESENT: normal bowel sounds, soft. ABSENT: distended, firm , tenderness Extremities exam: PRESENT: +2 edema Neurological exam: PRESENT: alert, altered, oriented to person, oriented to place, oriented to situation, CN II-XII grossly intact Psychiatric exam: PRESENT: appropriate affect. ABSENT: anxious Skin exam: PRESENT: warm Results Laboratory Results: 10/24/17 04:41 10/27/17 10:30 10/27/17 10:30 Sodium 139.0 Potassium 4.9 Chloride 98 Carbon Dioxide 34 H Anion Gap 7 BUN 26 H Creatinine 0.89 Est GFR ( Amer) > 60 Est GFR (Non-Af Amer) > 60 Glucose 89 Calcium 9.9 Magnesium 2.4 H 10/21/17 10/21/17 10/22/17 17:19 22:25 04:34 Troponin I < 0.012 < 0.012 < 0.012 Impressions: Chest X-Ray 10/21/17 13:19 IMPRESSION: CHRONIC EVENTRATION OF THE RIGHT HEMIDIAPHRAGM. MILD BASILAR ATELECTASIS/SCARRING. Assessment & Plan - Diagnosis (1) Anasarca Is this a current diagnosis for this admission?: Yes Plan: Stable from yesterday. Will try 1 more day of oral diuresis. His weight has decreased. Continue fluid restricted diet. Will check weight again tomorrow. (2) CHF (congestive heart failure) Qualifiers: Heart failure type: right-sided Heart failure chronicity: acute on chronic Qualified Code(s): I50.813 - Acute on chronic right heart failure Is this a current diagnosis for this admission?: Yes Plan: Please see above. Have ordered echocardiogram for tomorrow. (3) COPD (chronic obstructive pulmonary disease) Qualifiers: Emphysema type: unspecified Is this a current diagnosis for this admission?: Yes Plan: Stable. No medication changes to be made today with the exception of discontinuation of the scheduled duo nebs. I have made these as needed. (4) Chronic respiratory failure Qualifiers: Respiratory failure complication: hypoxia and hypercapnia Qualified Code(s) : J96.11 - Chronic respiratory failure with hypoxia; J96.12 - Chronic respiratory failure with hypercapnia; J96.12 - Chronic respiratory failure with hypercapnia; J96.12 - Chronic respiratory failure with hypercapnia Is this a current diagnosis for this admission?: Yes Plan: Continue respiratory meds and oxygen. (5) Constipation Qualifiers: Constipation type: unspecified constipation type Qualified Code(s): K59.00 - Constipation, unspecified Is this a current diagnosis for this admission?: Yes Plan: Resolved. Started simethicone for gas. Stopped senna. Will continue as needed Dulcolax suppository. (6) Depression Qualifiers: Psychotic features: without psychotic features Is this a current diagnosis for this admission?: Yes Plan: Patient is on Prozac and Wellbutrin, to continue. (7) HTN (hypertension) Qualifiers: Hypertension type: essential hypertension Qualified Code(s): I10 - Essential (primary) hypertension Is this a current diagnosis for this admission?: Yes Plan: Blood pressures have been low. He was started on midodrine and this will continue for now. Will likely need cardiology consult once echocardiogram returns. (8) Morbid obesity with BMI of 40.0-44.9, adult Is this a current diagnosis for this admission?: Yes - Time Time Spent with patient: 15-24 minutes Medications reviewed and adjusted accordingly: Yes - Inpatient Certification Based on my medical assessment, after consideration of the patient's comorbidities, presenting symptoms, or acuity I expect that the services needed warrant INPATIENT care.: Yes I certify that my determination is in accordance with my understanding of Medicare's requirements for reasonable and necessary INPATIENT services [42 CFR 412.3e].: Yes Medical Necessity: Significant Comorbidiites Make Outpatient Treatment Too Risky , Need Close Monitoring Due to Risk of Patient Decompensation - awaitng ECHO, ajit box need cards consult, still on midodrine for hypotension
[2017-10-27] MEDS: MONTELUKAST SODIUM 10 MG TABLET PO SCH (22:15)
[2017-10-27] MEDS: TRAZODONE HCL 50 MG TABLET PO SCH (22:15)
[2017-10-28] MEDS: ACETAMINOPHEN 325 MG TABLET PO PRN (00:32)
[2017-10-28] MEDS: HEPARIN SOD (PORCINE) 5,000 UNIT/ML 1 ML SYRINGE SUBCUT SCH ×3 (05:58→22:10)
[2017-10-28] MEDS: METOPROLOL SUCCINATE 25 MG TAB.SR.24H PO SCH (09:24)
[2017-10-28] MEDS: FLUOXETINE HCL 20 MG CAPSULE PO SCH ×2 (09:34→17:45)
[2017-10-28] MEDS: BUPROPION HCL 100 MG TABLET PO SCH (09:34)
[2017-10-28] MEDS: MIDODRINE HCL 5 MG TABLET PO SCH ×3 (09:34→17:45)
[2017-10-28] MEDS: DISULFIRAM 250 MG TABLET PO SCH ×2 (09:34→17:45)
[2017-10-28] MEDS: FUROSEMIDE 40 MG TABLET PO SCH (09:35)
[2017-10-28] MEDS: TAMSULOSIN HCL 0.4 MG CAP.SR.24H PO SCH (09:35)
[2017-10-28] MEDS: ROFLUMILAST 500 MCG TABLET PO SCH (09:35)
[2017-10-28] MEDS: FLUTICASONE/SALMETEROL DISKUS 500-50 MCG/DOSE IH SCH ×2 (09:35→22:10)
--- NOTE | 2017-10-28 16:37 | PDOC PROGRESS REPORT ---
Subjective Progress Note for:: 10/28/17 Subjective:: Patient is feeling really well today. Blood pressure remains a little bit low even on Midrin. Tolerating diuresis well. No breathing problems. No chest pain. Eating and drinking well. Bowels are now moving normally. We are awaiting echocardiogram report and will work on titrating midodrine to off, and making sure he can stiill tolerate diuresis. Reason For Visit: RIGHT SIDED HEART FAILURE Physical Exam Vital Signs: Temp Pulse Resp BP Pulse Ox 98.0 F 72 16 103/68 95 10/28/17 15:27 10/28/17 16:10 10/28/17 16:10 10/28/17 15:27 10/28/17 16:10 Intake & Output 10/27/17 10/28/17 10/29/17 06:59 06:59 06:59 Intake Total 1854 1420 Output Total 3000 1275 Balance -1146 145 Weight 107.2 kg 106.7 kg General appearance: PRESENT: no acute distress, obese Eye exam: PRESENT: EOMI. ABSENT: scleral icterus Mouth exam: PRESENT: moist, tongue midline Neck exam: PRESENT: lymphadenopathy Respiratory exam: PRESENT: clear to auscultation abi, prolonged expiratory phas , unlabored. ABSENT: rales, rhonchi, wheezes Pulses: PRESENT: normal radial pulses GI/Abdominal exam: PRESENT: normal bowel sounds, soft. ABSENT: distended, firm , tenderness Extremities exam: PRESENT: other - A trace pedal edema Neurological exam: PRESENT: alert, awake, oriented to person, oriented to place , oriented to situation, CN II-XII grossly intact Psychiatric exam: PRESENT: appropriate affect. ABSENT: anxious Skin exam: PRESENT: dry, warm Results Laboratory Results: 10/24/17 04:41 10/27/17 10:30 10/21/17 10/21/17 10/22/17 17:19 22:25 04:34 Troponin I < 0.012 < 0.012 < 0.012 Impressions: Chest X-Ray 10/21/17 13:19 IMPRESSION: CHRONIC EVENTRATION OF THE RIGHT HEMIDIAPHRAGM. MILD BASILAR ATELECTASIS/SCARRING. Assessment & Plan - Diagnosis (1) Anasarca Is this a current diagnosis for this admission?: Yes Plan: Much improved. Continue oral diuresis for now. (2) CHF (congestive heart failure) Qualifiers: Heart failure type: right-sided Heart failure chronicity: acute on chronic Qualified Code(s): I50.813 - Acute on chronic right heart failure Is this a current diagnosis for this admission?: Yes Plan: Echocardiogram pending. Continue other cardiac meds and continue oral diuresis. Fortunately his blood pressure has been low with diuresis and is still on Midrine. Hope to wean this off over next few days. (3) COPD (chronic obstructive pulmonary disease) Qualifiers: Emphysema type: unspecified Is this a current diagnosis for this admission?: Yes Plan: To baseline COPD status. Continue current care. (4) Constipation Qualifiers: Constipation type: unspecified constipation type Qualified Code(s): K59.00 - Constipation, unspecified Is this a current diagnosis for this admission?: Yes (5) Depression Qualifiers: Psychotic features: without psychotic features Is this a current diagnosis for this admission?: Yes Plan: cont current care with prozac home med, wellbutrin started in the hospital. depression stable. (6) HTN (hypertension) Qualifiers: Hypertension type: essential hypertension Qualified Code(s): I10 - Essential (primary) hypertension Is this a current diagnosis for this admission?: Yes Plan: he has been hypotensive with diuresis, cont diruesis and midodrine with wean off midodrine starting today (7) Morbid obesity with BMI of 40.0-44.9, adult Is this a current diagnosis for this admission?: Yes - Time Time Spent with patient: 25-34 minutes Anticipated discharge: Home - Inpatient Certification Based on my medical assessment, after consideration of the patient's comorbidities, presenting symptoms, or acuity I expect that the services needed warrant INPATIENT care.: Yes I certify that my determination is in accordance with my understanding of Medicare's requirements for reasonable and necessary INPATIENT services [42 CFR 412.3e].: Yes Medical Necessity: Significant Comorbidiites Make Outpatient Treatment Too Risky , Risk of Complication if Not Cared For in Hospital
[2017-10-28] MEDS: MONTELUKAST SODIUM 10 MG TABLET PO SCH (22:10)
[2017-10-28] MEDS: TRAZODONE HCL 50 MG TABLET PO SCH (22:10)
[2017-10-29] MEDS: HEPARIN SOD (PORCINE) 5,000 UNIT/ML 1 ML SYRINGE SUBCUT SCH ×3 (05:54→22:39)
--- NOTE | 2017-10-29 09:14 | XCELERA REPORT ---
[address] [address] Transthoracic Echocardiogram Report Name: KAMERON TRUJILLO Age: 57 yrs Gender: Male : 1960 Patient Status: Inpatient Patient Location: [address] [place] [address] Study Date: 10/28/2017 09:41 AM Height: 68 in Weight: 236 lb BSA: 2.2 m2 Procedure: A complete two-dimensional transthoracic echocardiogram was performed (2D, M-mode, spectral and color flow Doppler). The study was technically adequate with some images being suboptimal in quality. Reason For Study: eval CHF Ordering Physician: JAY TRIVEDI Performed By: Lucina Tony Interpretation Summary The left ventricular ejection fraction is normal. There is borderline concentric left ventricular hypertrophy. The left ventricle is grossly normal size. Doppler measurements suggest pseudonormalized left ventricular relaxation, which is associated with grade II/IV or mild to moderate diastolic dysfunction Wall motion cannot be accurately commented on, but no definite regional wall motion abnormalities noted. Borderline right ventricular enlargement. The right ventricular systolic function is normal. The right atrium is normal in size The left atrial size is normal. There is no mitral valve stenosis. There is a trace amount of mitral regurgitation There is no aortic valve stenosis No aortic regurgitation is present. There is no tricuspid stenosis. There is a trace or physiologic amount of tricuspid regurgitation The aortic root is not well visualized but is probably normal size. The inferior vena cava appeared normal and decreased > 50% with respiration (RAP 5-10 mmHg) There is no pericardial effusion. MMode/2D Measurements & Calculations RVDd: 3.3 cm LVIDd: 5.1 cm FS: 28.8 % Ao root diam: 3.0 cm IVSd: 0.76 cm LVIDs: 3.6 cm EDV(Teich): 122.6 ml LVPWd: 0.84 cm ESV(Teich): 54.9 ml Ao root area: 7.0 cm2 EF(Teich): 55.2 % LA dimension: 3.7 cm Doppler Measurements & Calculations MV E max lala: MV P1/2t max lala: Ao V2 max: LV V1 max P.1 cm/sec 107.6 cm/sec 121.3 cm/sec 4.5 mmHg MV A max lala: MV P1/2t: 90.1 msec Ao max PG: LV V1 max: 92.3 cm/sec 5.9 mmHg 106.6 cm/sec MV E/A: 1.2 MVA(P1/2t): 2.4 cm2 MV dec slope: 349.6 cm/sec2 MV dec time: 0.29 sec PA V2 max: TR max lala: 86.4 cm/sec 243.0 cm/sec PA max PG: TR max P.6 mmHg 3.0 mmHg Left Ventricle The left ventricle is grossly normal size. There is borderline concentric left ventricular hypertrophy. The left ventricular ejection fraction is normal. Doppler measurements suggest pseudonormalized left ventricular relaxation, which is associated with grade II/IV or mild to moderate diastolic dysfunction. Wall motion cannot be accurately commented on, but no definite regional wall motion abnormalities noted. Right Ventricle Borderline right ventricular enlargement. There is normal right ventricular wall thickness. The right ventricular systolic function is normal. Atria The right atrium is normal in size. The left atrial size is normal. Interarterial septum not well visualized and not well dopplered. Cannot comment on ASD/PFO presence. Mitral Valve The mitral valve leaflets are sclerotic, but show no functional abnormalities. There is no mitral valve stenosis. There is a trace amount of mitral regurgitation. Aortic Valve The aortic valve is grossly normal. There is no aortic valve stenosis. No aortic regurgitation is present. Tricuspid Valve The tricuspid valve is not well visualized, but is grossly normal. There is no tricuspid stenosis. There is a trace or physiologic amount of tricuspid regurgitation. Pulmonic Valve The pulmonic valve is not well visualized. Great Vessels The aortic root is not well visualized but is probably normal size. The inferior vena cava appeared normal and decreased > 50% with respiration (RAP 5-10 mmHg). Effusions There is no pericardial effusion. : JAY TRIVEDI > [place]
[2017-10-29] MEDS: FLUTICASONE/SALMETEROL DISKUS 500-50 MCG/DOSE IH SCH ×2 (10:37→22:39)
[2017-10-29] MEDS: MIDODRINE HCL 5 MG TABLET PO SCH ×2 (10:55→17:58)
[2017-10-29] MEDS: FLUOXETINE HCL 20 MG CAPSULE PO SCH ×2 (11:04→17:56)
[2017-10-29] MEDS: TAMSULOSIN HCL 0.4 MG CAP.SR.24H PO SCH (11:04)
[2017-10-29] MEDS: FUROSEMIDE 40 MG TABLET PO SCH (11:04)
[2017-10-29] MEDS: BUPROPION HCL 100 MG TABLET PO SCH (11:04)
[2017-10-29] MEDS: DISULFIRAM 250 MG TABLET PO SCH ×2 (11:05→17:56)
[2017-10-29] MEDS: METOPROLOL SUCCINATE 25 MG TAB.SR.24H PO SCH (11:05)
[2017-10-29] MEDS: ROFLUMILAST 500 MCG TABLET PO SCH (11:06)
--- NOTE | 2017-10-29 17:44 | PDOC PROGRESS REPORT ---
Subjective Progress Note for:: 10/29/17 Subjective:: Feels improving, lower extremity swelling improving. No orthopnea or PND. Denies fever or chills. Does not feel dizzy, no syncope. Remains on Midodrin. Reason For Visit: RIGHT SIDED HEART FAILURE Physical Exam Vital Signs: Temp Pulse Resp BP Pulse Ox 97.5 F 64 19 116/70 95 10/29/17 16:37 10/29/17 16:37 10/29/17 16:37 10/29/17 16:37 10/29/17 16:37 Intake & Output 10/28/17 10/29/17 10/30/17 06:59 06:59 06:59 Intake Total 1420 1270 518 Output Total 1275 2075 1800 Balance 145 -805 -1282 Weight 106.7 kg General appearance: PRESENT: no acute distress, obese Eye exam: PRESENT: EOMI. ABSENT: scleral icterus Mouth exam: PRESENT: moist, tongue midline Neck exam: PRESENT: lymphadenopathy Respiratory exam: PRESENT: clear to auscultation abi, prolonged expiratory phas , unlabored. ABSENT: rales, rhonchi, wheezes Pulses: PRESENT: normal radial pulses GI/Abdominal exam: PRESENT: normal bowel sounds, soft. ABSENT: distended, firm , tenderness Extremities exam: PRESENT: other - A trace pedal edema Neurological exam: PRESENT: alert, awake, oriented to person, oriented to place , oriented to situation, CN II-XII grossly intact Psychiatric exam: PRESENT: appropriate affect. ABSENT: anxious Skin exam: PRESENT: dry, warm Results Laboratory Results: 10/24/17 04:41 10/27/17 10:30 10/21/17 10/21/17 10/22/17 17:19 22:25 04:34 Troponin I < 0.012 < 0.012 < 0.012 Impressions: Chest X-Ray 10/21/17 13:19 IMPRESSION: CHRONIC EVENTRATION OF THE RIGHT HEMIDIAPHRAGM. MILD BASILAR ATELECTASIS/SCARRING. Assessment & Plan - Plan Summary Plan Summary: (1) Anasarca Is this a current diagnosis for this admission?: Yes Plan: Much improved. Continue oral diuresis for now. (2) CHF (congestive heart failure) Qualifiers: Heart failure type: right-sided Heart failure chronicity: acute on chronic Qualified Code(s): I50.813 - Acute on chronic right heart failure Is this a current diagnosis for this admission?: Yes Plan: Echocardiogram reveals normal EF, grade 2 diastolic dysfunction. Continue oral diuresis. Will institute trial of discontinuing Midodrin and received blood pressure remained stable. (3) COPD (chronic obstructive pulmonary disease) Qualifiers: Emphysema type: unspecified Is this a current diagnosis for this admission?: Yes Plan: At baseline COPD status. Continue current care. (4) Constipation Qualifiers: Constipation type: unspecified constipation type Qualified Code(s): K59.00 - Constipation, unspecified Is this a current diagnosis for this admission?: Yes (5) Depression Qualifiers: Psychotic features: without psychotic features Is this a current diagnosis for this admission?: Yes Plan: cont current care with prozac home med, wellbutrin started in the hospital. depression stable. (6) HTN (hypertension) Qualifiers: Hypertension type: essential hypertension Qualified Code(s): I10 - Essential (primary) hypertension Is this a current diagnosis for this admission?: Yes Plan: Was hypotensive with diuresis, cont diruesis and midodrine stopped today (7) Morbid obesity with BMI of 40.0-44.9, adult Is this a current diagnosis for this admission?: Yes
[2017-10-29] MEDS: TRAZODONE HCL 50 MG TABLET PO SCH (22:39)
[2017-10-29] MEDS: MONTELUKAST SODIUM 10 MG TABLET PO SCH (22:39)
[2017-10-30 05:03] LABS: ABSOLUTE BASOPHILS # (AUTO) 0.1 10^3/uL (0.0-0.2); ABSOLUTE EOSINOPHILS # (AUTO) 0.2 10^3/uL (0.0-0.6); ABSOLUTE LYMPHOCYTES (AUTO) 2.4 10^3/uL (0.5-4.7); ABSOLUTE MONOCYTES (AUTO) 1.1 10^3/uL (0.1-1.4); ABSOLUTE NEUT (AUTO) 5.8 10^3/uL (1.7-8.2); BASOPHILS % (AUTO) 0.8 % (0-2); EOSINOPHILS % (AUTO) 1.6 % (0-6); HEMATOCRIT 44.7 % (37.9-51.0); HEMOGLOBIN 14.9 g/dL (13.5-17.0); LYMPHOCYTES % (AUTO) 25.4 % (13-45); MEAN CORPUSCULAR HEMOGLOBIN 31.4 pg (27.0-33.4); MEAN CORPUSCULAR HGB CONC 33.4 g/dL (32.0-36.0); MEAN CORPUSCULAR VOLUME 94 fl (80-97); MONOCYTES % (AUTO) 11.7 % (3-13); PLATELET COUNT 214 10^3/uL (150-450); RED BLOOD COUNT 4.76 10^6/uL (4.35-5.55); RED CELL DISTRIBUTION WIDTH 15.4 % (11.5-14.0); SEGMENTED NEUTROPHILS % (AUTO) 60.5 % (42-78); TOTAL CELLS COUNTED % (AUTO) 100 %; WHITE BLOOD COUNT 9.5 10^3/uL (4.0-10.5)
[2017-10-30 05:24] LABS: ANION GAP 12 (5-19); BLOOD UREA NITROGEN 35 mg/dL (7-20); CALCIUM 9.8 mg/dL (8.4-10.2); CARBON DIOXIDE 31 mmol/L (22-30); CHLORIDE 98 mmol/L (98-107); GLUCOSE 104 mg/dL (75-110); POTASSIUM 4.7 mmol/L (3.6-5.0); SODIUM 140.6 mmol/L (137-145)
[2017-10-30] MEDS: HEPARIN SOD (PORCINE) 5,000 UNIT/ML 1 ML SYRINGE SUBCUT SCH (05:56)
[2017-10-30] MEDS: FLUTICASONE/SALMETEROL DISKUS 500-50 MCG/DOSE IH SCH (09:27)
[2017-10-30 10:33] VITALS: BP 106/69
[2017-10-30] MEDS: TAMSULOSIN HCL 0.4 MG CAP.SR.24H PO SCH (11:16)
[2017-10-30] MEDS: DISULFIRAM 250 MG TABLET PO SCH (11:16)
[2017-10-30] MEDS: BUPROPION HCL 100 MG TABLET PO SCH (11:17)
[2017-10-30] MEDS: FLUOXETINE HCL 20 MG CAPSULE PO SCH (11:17)
[2017-10-30] MEDS: METOPROLOL SUCCINATE 25 MG TAB.SR.24H PO SCH (11:17)
[2017-10-30] MEDS: FUROSEMIDE 40 MG TABLET PO SCH (11:18)
[2017-10-30] MEDS: MIDODRINE HCL 5 MG TABLET PO SCH (11:18)
[2017-10-30] MEDS: ROFLUMILAST 500 MCG TABLET PO SCH (11:23)
--- NOTE | 2017-10-30 19:55 | PDOC DISCHARGE SUMMARY ---
General - Admit/Disc Date/PCP Admission Date/Primary Care Provider: 10/21/17 16:50 KIMBERLEY ZHONG Discharge Date: 10/30/17 - Discharge Diagnosis (1) Anasarca Is this a current diagnosis for this admission?: Yes (2) CHF (congestive heart failure) Is this a current diagnosis for this admission?: Yes (3) COPD (chronic obstructive pulmonary disease) Is this a current diagnosis for this admission?: Yes (4) Depression Is this a current diagnosis for this admission?: Yes (5) HTN (hypertension) Is this a current diagnosis for this admission?: Yes - Additional Information Resuscitation Status: Full Code Discharge Diet: Cardiac Discharge Activity: Activity As Tolerated, Balance Activity w/Rest, Weigh Daily Prescriptions: Fluticasone/Salmeterol [Advair 500-50 Diskus 14 Dose/Diskus] 1 inh IH Q12 30 Days inhaler Furosemide [Lasix 40 mg Tablet] 40 mg PO DAILY 30 Days #30 tablet Metoprolol Succinate [Toprol Xl 25 mg Tab.sr] 12.5 mg PO DAILY 30 Days #30 tab.sr.24h Roflumilast [Daliresp 500 Mcg Tablet] 500 mcg PO DAILY 30 Days #30 tablet Home Medications: Albuterol Sulfate [Albuterol Sulfate 2.5mg/3 mL] 1 vial IH RTTIDP PRN 10/21/17 Albuterol Sulfate [Proair HFA] 2 puff IH Q4HP PRN 10/21/17 Disulfiram [Antabuse 250 mg Tablet] 250 mg PO BID 10/21/17 Fluoxetine HCl [Prozac 20 mg Capsule] 20 mg PO BID 10/21/17 Glycopyrrolate/Formoterol Fum [Bevespi Aerosphere Inhaler] 2 puff IH BIDP PRN Ipratropium [place] [Atrovent 0.02% Neb 0.5 mg/2.5 ml Ampul] 0.5 mg IH RTTIDP PRN 10/21/17 Meloxicam [Mobic] 7.5 mg PO BID 10/21/17 Montelukast Sodium [Singulair 10 mg Tablet] 10 mg PO QHS 10/21/17 Tamsulosin HCl [Flomax 0.4 mg Cap.sr] 0.4 mg PO DAILY 10/21/17 Trazodone HCl [Desyrel] 150 mg PO QHS 10/21/17 Fluticasone/Salmeterol [Advair 500-50 Diskus 14 Dose/Diskus] 1 inh IH Q12 30 Days inhaler 10/30/17 Furosemide [Lasix 40 mg Tablet] 40 mg PO DAILY 30 Days #30 tablet 10/30/17 Metoprolol Succinate [Toprol Xl 25 mg Tab.sr] 12.5 mg PO DAILY 30 Days #30 tab.sr.24h 10/30/17 Roflumilast [Daliresp 500 Mcg Tablet] 500 mcg PO DAILY 30 Days #30 tablet History of Present Illness History of Present Illness: KAMERON TRUJILLO is a 57 year old male who was referred from his PCPs office because of complaint of pain and swelling of his both feet, gaining about 25 pounds over the course of 4 days, and shortness of breath. Patient denied chest pain, cough, fever or chills. He had been using BiPAP regularly for 1 week. He states that he quit smoking 6 weeks ago. He normally uses 3-4 L of oxygen however during the past couple of days prior to presentation he had been using up to 5 L. He also has a history of COPD and has required intubation. In emergency room his blood pressure was 127/70, heart rate 89 respiratory rate 30. BNP was significant since it was 501. Hospital Course Hospital Course: Patient was admitted to hospitalist service and treated with IV Lasix diuresis. He was also treated with nebulizers as well as Advair Daliresp and single. He had problems with hypotension with diuresis, so Midodrin was added to his medications. Lisinopril was discontinued. Echocardiogram 10/26/17 revealed grossly normal EF, but II/IV. He is doing better now diastolic dysfunction, shortness of breath resolved, lower extremity swelling markedly improved. Patient has been titrated off Midodrin and blood pressure in the low 100s. Patient is asymptomatic, without dizziness, chest pain or syncope. He is being discharged in stable condition, he is to follow-up with his primary care physician within 1 week. 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 Physical Exam Vital Signs: Temp Pulse Resp BP Pulse Ox 97.5 F 74 20 110/76 95 10/30/17 08:07 10/30/17 08:11 10/30/17 08:11 10/30/17 08:07 10/30/17 08:11 Intake & Output 10/29/17 10/30/17 10/31/17 06:59 06:59 06:59 Intake Total 1270 938 Output Total 6850 2510 Balance -805 -3849 Weight 101.9 kg General appearance: PRESENT: no acute distress, obese Eye exam: PRESENT: EOMI. ABSENT: scleral icterus Mouth exam: PRESENT: moist, tongue midline Neck exam: PRESENT: lymphadenopathy Respiratory exam: PRESENT: clear to auscultation abi, unlabored. ABSENT: rales , rhonchi, wheezes Pulses: PRESENT: normal radial pulses GI/Abdominal exam: PRESENT: normal bowel sounds, soft. ABSENT: distended, firm , tenderness Extremities exam: PRESENT: other - A trace pedal edema Neurological exam: PRESENT: alert, awake, oriented to person, oriented to place , oriented to situation, CN II-XII grossly intact Psychiatric exam: PRESENT: appropriate affect. ABSENT: anxious Skin exam: PRESENT: dry, warm Results Laboratory Results: 10/30/17 04:37 10/30/17 04:37 10/30/17 10/30/17 04:37 04:37 WBC 9.5 RBC 4.76 Hgb 14.9 Hct 44.7 MCV 94 MCH 31.4 MCHC 33.4 RDW 15.4 H Plt Count 214 Seg Neutrophils % 60.5 Lymphocytes % 25.4 Monocytes % 11.7 Eosinophils % 1.6 Basophils % 0.8 Absolute Neutrophils 5.8 Absolute Lymphocytes 2.4 Absolute Monocytes 1.1 Absolute Eosinophils 0.2 Absolute Basophils 0.1 Sodium 140.6 Potassium 4.7 Chloride 98 Carbon Dioxide 31 H Anion Gap 12 BUN 35 H Creatinine 1.06 Est GFR ( Amer) > 60 Est GFR (Non-Af Amer) > 60 Glucose 104 Calcium 9.8 10/21/17 10/21/17 10/22/17 17:19 22:25 04:34 Troponin I < 0.012 < 0.012 < 0.012 Impressions: Chest X-Ray 10/21/17 13:19 IMPRESSION: CHRONIC EVENTRATION OF THE RIGHT HEMIDIAPHRAGM. MILD BASILAR ATELECTASIS/SCARRING. Qualifiers - * PATIENT BEING DISCHARGED WITH ANY OF THE FOLLOWING DIAGNOSIS: No Plan Time Spent: Greater than 30 Minutes
== END 2017-10-30 12:05 | disposition home or self-care (01) | DRG 292 ==
LOC: ER 12:40 → EH 16:50 → 4N 23:50
PROVIDERS: ADMIT Internal Medicine; ATTEND Internal Medicine
PROC: 5A09557 Assistance with Respiratory Ventilation, Greater than 96 Consecutive Hours, Continuous Positive Airway Pressure (ICD-10-PCS; principal; 2017-10-21)
DX: I11.0 Hypertensive heart disease with heart failure (principal); J96.11 Chronic respiratory failure with hypoxia; J96.12 Chronic respiratory failure with hypercapnia; Z68.41 Body mass index [BMI] 40.0-44.9, adult; I50.33 Acute on chronic diastolic (congestive) heart failure; E66.01 Morbid (severe) obesity due to excess calories; K59.00 Constipation, unspecified; I95.9 Hypotension, unspecified; E11.9 Type 2 diabetes mellitus without complications; F17.220 Nicotine dependence, chewing tobacco, uncomplicated; J44.9 Chronic obstructive pulmonary disease, unspecified; F32.9 Major depressive disorder, single episode, unspecified; Z99.81 Dependence on supplemental oxygen; Z87.891 Personal history of nicotine dependence; Z82.49 Family history of ischemic heart disease and other diseases of the circulatory system; Z79.899 Other long term (current) drug therapy; Z79.82 Long term (current) use of aspirin
CPT/HCPCS: 36415; 36600; 71046; 80048; 80053; 82803; 83735; 83880; 84484; 85025; 93005; 93010; 93306; 94660; 99285; J1644; J1940; J3490; J7620

== ENCOUNTER → 2017-12-02 | Outpatient (CLI) | payer BC ==
[2017-12-02 11:10] LABS: HEMOGLOBIN 14.7 g/dL (13.5-17.0); MEAN CORPUSCULAR HEMOGLOBIN 31.4 pg (27.0-33.4); MEAN CORPUSCULAR HGB CONC 34.1 g/dL (32.0-36.0); MEAN CORPUSCULAR VOLUME 92 fl (80-97); PLATELET COUNT 239 10^3/uL (150-450); RED BLOOD COUNT 4.68 10^6/uL (4.35-5.55); RED CELL DISTRIBUTION WIDTH 14.5 % (11.5-14.0); WHITE BLOOD COUNT 6.2 10^3/uL (4.0-10.5)
[2017-12-02 11:39] LABS: ALANINE AMINOTRANSFERASE 21 U/L (21-72); ALBUMIN 3.9 g/dL (3.5-5.0); ALKALINE PHOSPHATASE 55 U/L (38-126); ANION GAP 12 (5-19); ASPARTATE AMINO TRANSFERASE 13 U/L (17-59); BILIRUBIN,DIRECT 0.3 mg/dL (0.0-0.4); BILIRUBIN,TOTAL 0.3 mg/dL (0.2-1.3); BLOOD UREA NITROGEN 30 mg/dL (7-20); CALCIUM 10.1 mg/dL (8.4-10.2); CARBON DIOXIDE 29 mmol/L (22-30); CHLORIDE 104 mmol/L (98-107); GLUCOSE 85 mg/dL (75-110); PHOSPHORUS 3.8 mg/dL (2.5-4.5); POTASSIUM 4.3 mmol/L (3.6-5.0); TOTAL PROTEIN 6.9 g/dL (6.3-8.2)
== END ==
LOC: OD 10:42
PROVIDERS: ATTEND Internal Medicine Nephrology
DX: I12.9 Hypertensive chronic kidney disease with stage 1 through stage 4 chronic kidney disease, or unspecified chronic kidney disease (principal); N18.4 Chronic kidney disease, stage 4 (severe); I50.9 Heart failure, unspecified; N17.9 Acute kidney failure, unspecified
CPT/HCPCS: 36415; 80053; 83735; 83970; 84100; 85027

== ENCOUNTER → 2017-12-30 | Outpatient (CLI) | payer BC ==
[2017-12-30 12:12] LABS: ANION GAP 10 (5-19); BLOOD UREA NITROGEN 16 mg/dL (7-20); CALCIUM 9.8 mg/dL (8.4-10.2); CARBON DIOXIDE 32 mmol/L (22-30); CHLORIDE 100 mmol/L (98-107); GLUCOSE 87 mg/dL (75-110); POTASSIUM 4.7 mmol/L (3.6-5.0)
== END ==
LOC: OD 10:22
PROVIDERS: ATTEND Internal Medicine Nephrology
DX: N17.9 Acute kidney failure, unspecified (principal)
CPT/HCPCS: 36415; 80048

== ENCOUNTER 2018-11-10 21:33 | Inpatient (IN) | payer BC ==
[2018-11-10] MEDS ORDERED: RINGERS SOLUTION,LACTATED 1,000 ML IV ONE (22:07)
[2018-11-10] MEDS ORDERED: ETOMIDATE INJ/PF 20 MG/10 ML SDV IV ONE ×2 (22:07→22:08)
[2018-11-10] MEDS ORDERED: ROCURONIUM BROMIDE INJ 50 MG/5 ML VIAL IV ONE (22:07)
[2018-11-10] MEDS ORDERED: HYDROMORPHONE HCL INJ/PF 2 MG/ML AMPULE ONE (22:20)
--- NOTE | 2018-11-10 22:20 | ER Document Report ---
ED General - General Chief Complaint: Unresponsive Stated Complaint: DIFFICULTY BREATHING Time Seen by Provider: 11/10/18 22:01 Cannot obtain history due to: Unstable vital signs, Altered mental status Notes: Patient is a 58-year-old male with past medical history of chronic alcohol abuse, hypertension, cirrhosis, chronic kidney disease, COPD with oxygen dependence, presents by EMS due to "being intoxicated". Patient was minimally responsive on scene, unresponsive at the time of my evaluation. History is extremely limited secondary to patient being unable to provide any meaningful history and the at the bedside is a very poor historian. History she does provide is at approximately 1930 the patient came home, stated that he felt tired and asked her to make the bed so he could go to sleep. She told him to lay on the couch while she made the bed. States that when she came back from making the bed he was lying on the ground and was unresponsive. She does believe that has been drinking today. Denies history of similar events in the past. TRAVEL OUTSIDE OF THE [place] IN LAST 30 DAYS: No - Related Data Allergies/Adverse Reactions: No Known Allergies Allergy (Verified 10/21/17 13:20) Past Medical History - General Information source: Relative Cannot obtain history due to: Unstable vital signs, Altered mental status - Social History Smoking Status: Current Every Day Smoker Frequency of alcohol use: Heavy Lives with: Spouse/Significant other Family History: Reviewed & Not Pertinent, Hypertension - Past Medical History Cardiac Medical History: Reports: Hx Hypertension Denies: Hx Atrial Fibrillation, Hx Congestive Heart Failure Pulmonary Medical History: Reports: Hx COPD, Hx Intubation, Hx Respiratory Failure Endocrine Medical History: Denies: Hx Diabetes Mellitus Type 1, Hx Diabetes Mellitus Type 2 Renal/ Medical History: Denies: Hx Peritoneal Dialysis Psychiatric Medical History: Reports: Hx Depression Review of Systems - Review of Systems -: Yes ROS unobtainable due to patient's medical condition Physical Exam - Vital signs Vitals: Pulse Ox 100 11/10/18 22:30 Interpretation: Normal Notes: PHYSICAL EXAMINATION: GENERAL: Obtunded, GCS 3 HEAD: Atraumatic, normocephalic. EYES: Pupils equal round and reactive to light, sclera anicteric, conjunctiva are normal. ENT: nares patent, oropharynx clear without exudates. Moderately dry mucous membranes. NECK: Supple without lymphadenopathy LUNGS: Diminished breath sounds in all lung bernal. No overt wheezing. HEART: Irregularly irregular rate and rhythm without murmurs ABDOMEN: Soft, nontender, normoactive bowel sounds. No guarding, no rebound. No masses appreciated. EXTREMITIES: no pitting or edema. No cyanosis. NEUROLOGICAL: GCS 3, no response to noxious or verbal stimuli. PSYCH: GCS 3, obtunded SKIN: Clammy, cool skin no rashes or lesions Course - Re-evaluation Re-evalutation: 11/10/18 22:18 Documentation is delayed as I have met this patient's bedside continuously since shortly after his arrival to the emergency department. I was called to the room by the nurse due to concerns that the patient was obtunded, very lethargic and not responding. History is very limited as the at the bedside is a very poor historian and the patient is obtunded unable to provide history. On my initial assessment the patient did not respond to any form of stimulants including noxious stimuli. GCS 3. He was immediately moved to a trauma bay. Airway protection and ventilatory assistance are needed so RSI was completed using rocuronium and etomidate. First-pass access was obtained. Patient did have dark oral secretions that smells strongly of alcohol. Patient has been placed on vent settings of tidal volume of 450 respiratory rate of 16 as he does appear to likely be hypercapnic with associated respiratory failure. However will also obtain a CT of the head and cervical spine to exclude spontaneous intracranial bleed and also because the patient apparently fell off of the couch today when he lost consciousness. Labs are likewise pending. Post intubation chest x-ray will be obtained. Patient is in critical condition, will be reassessed at regular intervals. 11/10/18 22:31 Patient did have some post intubation hypotension which has thus far been fluid responsive. I did unhook the patient the ventilator and attempt to press on his chest to see if hyperinflation of the lungs and decreased venous return would be affecting his blood pressure but this did not seem to make any significant difference. Patient is receiving 1 L of IV fluids for pressure support at this point. Current blood pressure is 89 on 47. If the patient does require further blood pressure assistance will proceed with central line placement and norepinephrine infusion. 11/10/18 22:37 Patient's blood pressure continues to respond well to fluid resuscitation currently 100 on 53. 11/11/18 00:00 I have continued to reassess the patient on frequent intervals. The patient has had gradual improvement of his blood pressure and it is not actually hypertensive currently 153 on 85. The patient is also becoming more responsive on the ventilator, beginning to block at the tube. Hydromorphone has been administered 2 mg every hour as needed and he has been started on a propofol infusion. His laboratories are indeed consistent with hypercapnic respiratory failure likely as the etiology of his obtunded status at presentation today. His labs also show significant hyperkalemia without evidence of EKG changes affiliated with this. He has been started on insulin, glucose, calcium gluconate and has also been given a bolus of 20 mg of furosemide to reduce the potassium. CT of the head does not demonstrate any evidence of intracranial bleed. CT cervical spine is likewise normal 11/11/18 00:[address] Howard who has accepted the patient to the ICU. - Vital Signs Vital signs: Temp Pulse Resp BP Pulse Ox 83 16 120/61 94 11/11/18 00:31 11/11/18 01:06 11/11/18 01:06 11/11/18 01:06 - Laboratory Result Diagrams: 11/10/18 23:20 11/10/18 23:20 Laboratory results interpreted by me: 11/10/18 11/10/18 11/10/18 23:20 23:20 23:20 MCV 98 H RDW 14.5 H Seg Neutrophils % 82.9 H Lymphocytes % 8.3 L Carbonic Acid ABG pH ABG pCO2 ABG pO2 ABG HCO3 ABG Total CO2 ABG O2 Saturation Potassium 7.5 H* Chloride 97 L Carbon Dioxide 32 H BUN 48 H Creatinine 2.26 H Est GFR ( Amer) 36 L Est GFR (Non-Af Amer) 30 L Glucose 122 H Magnesium 2.4 H Lipase 409.7 H 11/10/18 23:30 MCV RDW Seg Neutrophils % Lymphocytes % Carbonic Acid 2.55 H ABG pH 7.18 L* ABG pCO2 84.8 H* ABG pO2 72.5 L ABG HCO3 30.9 H ABG Total CO2 33.5 H ABG O2 Saturation 89.6 L Potassium Chloride Carbon Dioxide BUN Creatinine Est GFR ( Amer) Est GFR (Non-Af Amer) Glucose Magnesium Lipase - Diagnostic Test Radiology reviewed: Image reviewed, Reports reviewed Radiology results interpreted by me: 11/11/18 00:14 CT head: No acute intercranial bleed or mass Chest x-ray: ET tube in the appropriate position. No acute infiltrate or pulmonary edema - EKG Interpretation by Me Additional EKG results interpreted by me: 11/10/18 22:20 Sinus rhythm, rate 77, bigeminy, QTC 304. Procedures - Intubation Orotracheal Airway evaluation: Copious secretions, Large tongue, Neck immobility, Obese Mallampati Classification: Class 3 Medications: Etomidate, Other - Rocuronium Intubation method: Orotracheal Blade type: Isabella Blade size: 4 Equipment used: Glidescope ETT size: 8.0 ETT secured at: Gums ETT secured at (cm): 22 Breath Sounds after Intubation: Equal End tidal CO2 confirmed: Yes Ventilator settings: SIMV Tidal volume: 450 FiO2: 50 Respirations: 16 PEEP: 5 Post Intubation Xray: Yes Intubation Complications: No complications Critical Care Note - Critical Care Note Total time excluding time spent on procedures (mins): 80 Comments: Critical care time spent obtaining history from patient or surrogate, discussions with consultants, development of treatment plan with patient or surr ogate, evaluation of patient's response to treatment, examination of patient, ordering and performing treatments and interventions, ordering and review of laboratory studies, re-evaluation of patient's condition, ordering and review of radiographic studies and review of old charts Discharge - Discharge Clinical Impression: Acute and chronic respiratory failure with hypercapnia, Alcohol abuse, Acute kidney injury superimposed on chronic kidney disease, Hyperkalemia Altered mental status Qualifiers: Altered mental status type: coma Coma depth: [place] coma 3-8 Coma timing: in the field (EMT or ambulance) Qualified Code(s): R40.2431 - [place] coma scale score 3-8, in the field [EMT or ambulance] Condition: Critical Disposition: ADMITTED INPATIENT Admitting Provider: Lee (Hospitalist) Unit Admitted: ICU
--- NOTE | 2018-11-10 22:52 | RADIOLOGY REPORT (SQ) ---
EXAM DESCRIPTION: XR CHEST 1 VIEW COMPLETED DATE/TME: 11/10/2018 22:05 CLINICAL HISTORY: 58 years, Male, sob COMPARISON: 10/21/2017 chest NUMBER OF VIEWS: 2 TECHNIQUE: AP chest LIMITATIONS: None. FINDINGS: Heart size is normal. Enteric tube, with the distal tip likely in the distal stomach. Endotracheal tube, with the tip approximately 4.1 cm above the ruddy. No pneumothorax. Elevation of the right hemidiaphragm. Minor scarring right lung base. Lungs otherwise clear. IMPRESSION: Endotracheal and enteric tubes are in place as above. No acute cardiopulmonary process. copyright 2010 [employer]- All Rights Reserved
[2018-11-10] MEDS ORDERED: PROPOFOL 1,000 MG/100 ML INFUS..BTL IV PRN (23:22)
--- NOTE | 2018-11-10 23:32 | RADIOLOGY REPORT (SQ) ---
EXAM DESCRIPTION: CT HEAD WITHOUT IV CONTRAST COMPLETED DATE/TME: 11/10/2018 22:06 CLINICAL HISTORY: 58 years Male ams COMPARISON: None. TECHNIQUE: Contiguous axial CT images obtained through the brain without IV contrast. This exam was performed according to our department optimization program which includes automated exposure control, adjustment of the mA and/or kv according to patient size and/or use of iterative reconstruction technique. FINDINGS: The ventricles and sulci are prominent consistent with atrophic changes. No mass lesions. No acute hemorrhage. Atherosclerotic calcifications. No fluid or significant mucosal thickening in the visualized paranasal sinuses. No depressed calvarial fractures. IMPRESSION: No acute intracranial abnormality is identified.
[2018-11-10 23:36] LABS: ABSOLUTE LYMPHOCYTES (AUTO) 0.8 10^3/uL (0.5-4.7); ABSOLUTE MONOCYTES (AUTO) 0.8 10^3/uL (0.1-1.4); ABSOLUTE NEUT (AUTO) 7.8 10^3/uL (1.7-8.2); BASOPHILS % (AUTO) 0.1 % (0-2); EOSINOPHILS % (AUTO) 0.1 % (0-6); HEMATOCRIT 45.4 % (37.9-51.0); HEMOGLOBIN 14.9 g/dL (13.5-17.0); LYMPHOCYTES % (AUTO) 8.3 % (13-45); MEAN CORPUSCULAR HEMOGLOBIN 32.1 pg (27.0-33.4); MEAN CORPUSCULAR HGB CONC 32.8 g/dL (32.0-36.0); MEAN CORPUSCULAR VOLUME 98 fl (80-97); MONOCYTES % (AUTO) 8.6 % (3-13); PLATELET COUNT 350 10^3/uL (150-450); RED BLOOD COUNT 4.64 10^6/uL (4.35-5.55); RED CELL DISTRIBUTION WIDTH 14.5 % (11.5-14.0); SEGMENTED NEUTROPHILS % (AUTO) 82.9 % (42-78); TOTAL CELLS COUNTED % (AUTO) 100 %; WHITE BLOOD COUNT 9.4 10^3/uL (4.0-10.5)
--- NOTE | 2018-11-10 23:37 | RADIOLOGY REPORT (SQ) ---
EXAM DESCRIPTION: CT CERVICAL SPINE WITHOUT IV CONTRAST COMPLETED DATE/TME: 11/10/2018 22:06 CLINICAL HISTORY: 58 years Male ams, ?fall COMPARISON: None. TECHNIQUE: Contiguous axial images obtained through the cervical spine without IV contrast. Coronal and sagittal reformatted images obtained. This exam was performed according to our department optimization program which includes automated exposure control, adjustment of the mA and/or kv according to patient size and/or use of iterative reconstruction technique. FINDINGS: Reversal of the normal lordosis centered at C6. No acute fracture. ET tube and nasogastric tube in place. Fragmentation of the facet at C3 on the right. C3-4: Severe bilateral neural foraminal stenosis. C4-5: Mild central canal and severe neural foraminal stenosis. C5-6: Severe right neural foraminal narrowing and mild central canal stenosis. C6-7: Severe central canal and neural foraminal narrowing. IMPRESSION: No acute cervical spinal fracture is identified. Multilevel degenerative change
[2018-11-10 23:52] LABS: ARTERIAL BLOOD BASE EXCESS -0.4 mmol/L; ARTERIAL BLOOD H2CO3 2.55 mmol/L (1.05-1.35); ARTERIAL BLOOD HCO3 30.9 mmol/L (20-24); ARTERIAL BLOOD O2 SATURATION 89.6 % (94-98); ARTERIAL BLOOD PO2 72.5 mmHg (80-100); ARTERIAL BLOOD TOTAL CO2 33.5 mmol/L (23-27)
[2018-11-10 23:53] LABS: ARTERIAL BLOOD FIO2 40%
[2018-11-10 23:55] LABS: ALANINE AMINOTRANSFERASE 28 U/L (21-72); ALBUMIN 4.1 g/dL (3.5-5.0); ALCOHOL 196 mg/dL (NONE DETECTED); ALKALINE PHOSPHATASE 91 U/L (38-126); ANION GAP 11 (5-19); ASPARTATE AMINO TRANSFERASE 22 U/L (17-59); BILIRUBIN,DIRECT 0.3 mg/dL (0.0-0.4); BILIRUBIN,TOTAL 0.3 mg/dL (0.2-1.3); BLOOD UREA NITROGEN 48 mg/dL (7-20); CALCIUM 8.9 mg/dL (8.4-10.2); CARBON DIOXIDE 32 mmol/L (22-30); CHLORIDE 97 mmol/L (98-107); GLUCOSE 122 mg/dL (75-110); LIPASE 409.7 U/L (23-300); SODIUM 139.6 mmol/L (137-145); TOTAL PROTEIN 7.5 g/dL (6.3-8.2)
[2018-11-10 23:56] LABS: ARTERIAL BLOOD PH 7.18 (7.35-7.45)
[2018-11-10 23:57] LABS: ARTERIAL BLOOD PCO2 84.8 mmHg (35-45)
[2018-11-10 23:59] LABS: POTASSIUM 7.5 mmol/L (3.6-5.0)
[2018-11-11] MEDS ORDERED: HYDROMORPHONE HCL INJ/PF 2 MG/ML AMPULE IV ONE (00:01)
[2018-11-11] MEDS ORDERED: PROPOFOL 1,000 MG/100 ML INFUS..BTL IV ONE (00:03)
[2018-11-11] MEDS ORDERED: CALCIUM GLUCONATE 1000 MG/10 ML INJ IV ONE (00:06)
[2018-11-11] MEDS ORDERED: DEXTROSE 50%-WATER 25 GM/50 ML DISP.SYRIN IV ONE (00:08)
[2018-11-11] MEDS ORDERED: FUROSEMIDE INJ/PF 20 MG/2 ML SDV IV ONE (00:08)
[2018-11-11] MEDS ORDERED: INSULIN REG, HUMAN 100 UNIT/ML 3 ML VIAL (PYX) IV ONE (00:08)
[2018-11-11] MEDS: HYDROMORPHONE HCL INJ/PF 2 MG/ML AMPULE IV PRN ×3 (00:11→22:19)
[2018-11-11] MEDS ORDERED: MAG HYDROX/AL HYDROX/SIMETH SUSP 30 ML UDCUP PO PRN (00:14)
[2018-11-11] MEDS ORDERED: IPRATROPIUM/ALBUTEROL 0.5-2.5 MG/3 ML AMPUL NEB PRN (00:14)
[2018-11-11] MEDS ORDERED: NORMAL SALINE 1000 ML 1,000 ML IV ONE (00:17)
[2018-11-11] MEDS ORDERED: LACTULOSE SYRUP 20 GM/30 ML UDCUP NG ONE (00:30)
[2018-11-11 00:56] LABS: CREATINE KINASE MB 4.39 ng/mL (<4.55)
[2018-11-11] MEDS: LORAZEPAM INJ 2 MG/1 ML VIAL IV PRN ×5 (01:06→13:15)
[2018-11-11 01:09] LABS: TROPONIN I 0.078 ng/mL
[2018-11-11] MEDS: PROPOFOL 1,000 MG/100 ML INFUS..BTL IV PRN ×6 (01:38→23:14)
[2018-11-11] MEDS ORDERED: LIDOCAINE 2% URO-JET 5 ML KIT MM ONE (01:58)
[2018-11-11 03:10] LABS: AMORPHOUS SEDIMENT,URINE TRACE /HPF; APPEARANCE,URINE CLOUDY; BILIRUBIN,URINE NEGATIVE (NEGATIVE); COLOR,URINE YELLOW; GLUCOSE, URINE 50 mg/dL (NEGATIVE); KETONES,URINE NEGATIVE (NEGATIVE); LEUKOCYTE ESTERASE,URINE MODERATE (NEGATIVE); NITRITE,URINE NEGATIVE (NEGATIVE); PROTEIN,URINE NEGATIVE (NEGATIVE); UROBILINOGEN,URINE NEGATIVE mg/dL (<2.0)
[2018-11-11 03:25] LABS: URINE AMPHETAMINES SCREEN NEGATIVE; URINE BARBITURATES SCREEN NEGATIVE; URINE BENZODIAZEPINES SCREEN NEGATIVE; URINE COCAINE SCREEN NEGATIVE; URINE MARIJUANA (THC) SCREEN NEGATIVE; URINE METHADONE SCREEN NEGATIVE; URINE PHENCYCLIDINE SCREEN NEGATIVE
[2018-11-11] MEDS: HEPARIN SOD (PORCINE) 5,000 UNIT/ML 1 ML SYRINGE SUBCUT SCH ×3 (05:11→22:19)
[2018-11-11 05:28] LABS: ABSOLUTE LYMPHOCYTES (AUTO) 1.5 10^3/uL (0.5-4.7); ABSOLUTE MONOCYTES (AUTO) 1.4 10^3/uL (0.1-1.4); ABSOLUTE NEUT (AUTO) 8.4 10^3/uL (1.7-8.2); BASOPHILS % (AUTO) 0.2 % (0-2); EOSINOPHILS % (AUTO) 0.4 % (0-6); HEMATOCRIT 41.5 % (37.9-51.0); HEMOGLOBIN 13.9 g/dL (13.5-17.0); LYMPHOCYTES % (AUTO) 12.9 % (13-45); MEAN CORPUSCULAR HEMOGLOBIN 32.5 pg (27.0-33.4); MEAN CORPUSCULAR HGB CONC 33.5 g/dL (32.0-36.0); MEAN CORPUSCULAR VOLUME 97 fl (80-97); MONOCYTES % (AUTO) 12.5 % (3-13); PLATELET COUNT 326 10^3/uL (150-450); RED BLOOD COUNT 4.27 10^6/uL (4.35-5.55); RED CELL DISTRIBUTION WIDTH 14.4 % (11.5-14.0); TOTAL CELLS COUNTED % (AUTO) 100 %; WHITE BLOOD COUNT 11.3 10^3/uL (4.0-10.5)
--- NOTE | 2018-11-11 05:38 | PDOC H&P ---
History of Present Illness Admission Date/PCP: 11/11/18 00:22 PASQUALE SANTANA MD Patient complains of: Altered mental status History of Present Illness: KAMERON TRUJILLO is a 58 year old male with a past medical history of alcohol abuse, hypertension, hepatic cirrhosis, chronic kidney disease, and COPD with oxygen dependence. Patient presents to the emergency department via EMS with altered mental status and subsequently history is obtained by the record. He is intubated by emergency department provider for a GCS of 3 with hypoxia and unprotected airway. Patient was noted by his at approximately 7:30 PM complaining of feeling tired and found approximately 15 minutes later unresponsive. Patient's believed he had been drinking excessively. ABG reveals hypoxic and hypercapnic respiratory failure, chemistry reveals a potassium 7.5 without peak T waves, creatinine of 2.2, serum alcohol is 196. Family is unavailable for interview. Past Medical History Cardiac Medical History: Reports: Hypertension Denies: Atrial Fibrillation, Congestive Heart Failure Pulmonary Medical History: Reports: Chronic Obstructive Pulmonary Disease (COPD), Intubation, Respiratory Failure Endocrine Medical History: Denies: Diabetes Mellitus Type 1, Diabetes Mellitus Type 2 GI Medical History: Reports: Cirrhosis Psychiatric Medical History: Reports: Alcohol Dependency, Depression Past Surgical History Past Surgical History: Reports: Other - Unknown Social History Information Source: Emergency Med Personnel, [facility] Records Lives with: Spouse/Significant other Smoking Status: Current Every Day Smoker Cigarettes Packs Per Day: 1 Number of Years Smokin Last Time Smoked: 11/10/18 Frequency of Alcohol Use: Heavy Hx Recreational Drug Use: No Drugs: None Hx Prescription Drug Abuse: No - Advance Directive Resuscitation Status: Full Code Family History Family History: Hypertension Parental Family History Reviewed: Yes Children Family History Reviewed: Yes Sibling(s) Family History Reviewed.: Yes Medication/Allergy Home Medications: Albuterol Sulfate [Albuterol Sulfate 2.5mg/3 mL] 1 vial IH RTTIDP PRN 10/21/17 Albuterol Sulfate [Proair HFA] 2 puff IH Q4HP PRN 10/21/17 Disulfiram [Antabuse 250 mg Tablet] 250 mg PO BID 10/21/17 Fluoxetine HCl [Prozac 20 mg Capsule] 20 mg PO BID 10/21/17 Glycopyrrolate/Formoterol Fum [Bevespi Aerosphere Inhaler] 2 puff IH BIDP PRN 10/21/17 Ipratropium [place] [Atrovent 0.02% Neb 0.5 mg/2.5 ml Ampul] 0.5 mg IH RTTIDP PRN 10/21/17 Meloxicam [Mobic] 7.5 mg PO BID 10/21/17 Montelukast Sodium [Singulair 10 mg Tablet] 10 mg PO QHS 10/21/17 Tamsulosin HCl [Flomax 0.4 mg Cap.sr] 0.4 mg PO DAILY 10/21/17 Trazodone HCl [Desyrel] 150 mg PO QHS 10/21/17 Fluticasone/Salmeterol [Advair 500-50 Diskus 14 Dose/Diskus] 1 inh IH Q12 30 Days inhaler 10/30/17 Furosemide [Lasix 40 mg Tablet] 40 mg PO DAILY 30 Days #30 tablet 10/30/17 Metoprolol Succinate [Toprol Xl 25 mg Tab.sr] 12.5 mg PO DAILY 30 Days #30 tab.sr.24h 10/30/17 Roflumilast [Daliresp 500 Mcg Tablet] 500 mcg PO DAILY 30 Days #30 tablet 10/30/17 Allergies/Adverse Reactions: No Known Allergies Allergy (Verified 10/21/17 13:20) Review of Systems ROS unobtainable: Due to endotracheal tube Physical Exam Vital Signs: Temp Pulse Resp BP Pulse Ox 96.4 F L 76 12 127/81 H 97 11/11/18 03:29 11/11/18 03:29 11/11/18 03:29 11/11/18 03:29 11/11/18 04:22 Intake & Output 11/09/18 11/10/18 11/11/18 11:59 11:59 11:59 Intake Total 1606 Output Total 950 Balance 656 Weight 113.7 kg General appearance: PRESENT: mild distress, obese, well-developed, well- nourished Head exam: PRESENT: atraumatic, normocephalic Eye exam: PRESENT: conjunctiva pink, EOMI, PERRLA. ABSENT: scleral icterus Ear exam: PRESENT: normal external ear exam Mouth exam: PRESENT: moist, tongue midline Neck exam: ABSENT: carotid bruit, JVD, lymphadenopathy, thyromegaly Respiratory exam: PRESENT: clear to auscultation abi, crackles. ABSENT: rales, rhonchi, wheezes Cardiovascular exam: PRESENT: RRR, tachycardia. ABSENT: diastolic murmur, gallop, rubs, systolic murmur Pulses: PRESENT: normal dorsalis pedis pul Vascular exam: PRESENT: normal capillary refill GI/Abdominal exam: PRESENT: distended, normal bowel sounds, soft. ABSENT: firm, guarding, mass, organolmegaly, rebound, tenderness Rectal exam: PRESENT: deferred Extremities exam: PRESENT: full ROM. ABSENT: calf tenderness, clubbing, pedal edema Neurological exam: PRESENT: altered. ABSENT: alert, awake, oriented to person Psychiatric exam: PRESENT: appropriate affect, normal mood. ABSENT: homicidal ideation, suicidal ideation Results Laboratory Results: 11/10/18 11/10/18 11/10/18 23:20 23:20 23:20 WBC 9.4 RBC 4.64 Hgb 14.9 Hct 45.4 MCV 98 H MCH 32.1 MCHC 32.8 RDW 14.5 H Plt Count 350 Seg Neutrophils % 82.9 H Lymphocytes % 8.3 L Monocytes % 8.6 Eosinophils % 0.1 Basophils % 0.1 Absolute Neutrophils 7.8 Absolute Lymphocytes 0.8 Absolute Monocytes 0.8 Absolute Eosinophils 0.0 Absolute Basophils 0.0 Carbonic Acid HCO3/H2CO3 Ratio ABG pH ABG pCO2 ABG pO2 ABG HCO3 ABG O2 Saturation ABG Base Excess FiO2 Sodium 139.6 Potassium 7.5 H* Chloride 97 L Carbon Dioxide 32 H Anion Gap 11 BUN 48 H Creatinine 2.26 H Est GFR ( Amer) 36 L Est GFR (Non-Af Amer) 30 L Glucose 122 H Calcium 8.9 Magnesium 2.4 H Total Bilirubin 0.3 AST 22 ALT 28 Alkaline Phosphatase 91 Total Protein 7.5 Albumin 4.1 Lipase 409.7 H TSH Urine Color Urine Appearance Urine pH Ur Specific [place] Urine Protein Urine Glucose (UA) Urine Ketones Urine Blood Urine Nitrite Ur Leukocyte Esterase Urine WBC (Auto) Urine RBC (Auto) 11/10/18 11/10/18 11/11/18 23:20 23:30 02:20 WBC RBC Hgb Hct MCV MCH MCHC RDW Plt Count Seg Neutrophils % Lymphocytes % Monocytes % Eosinophils % Basophils % Absolute Neutrophils Absolute Lymphocytes Absolute Monocytes Absolute Eosinophils Absolute Basophils Carbonic Acid 2.55 H HCO3/H2CO3 Ratio 12:1 ABG pH 7.18 L* ABG pCO2 84.8 H* ABG pO2 72.5 L ABG HCO3 30.9 H ABG O2 Saturation 89.6 L ABG Base Excess -0.4 FiO2 40% Sodium Potassium Chloride Carbon Dioxide Anion Gap BUN Creatinine Est GFR ( Amer) Est GFR (Non-Af Amer) Glucose Calcium Magnesium Total Bilirubin AST ALT Alkaline Phosphatase Total Protein Albumin Lipase TSH 0.76 Urine Color YELLOW Urine Appearance CLOUDY Urine pH 5.0 Ur Specific [place] 1.010 Urine Protein NEGATIVE Urine Glucose (UA) 50 H Urine Ketones NEGATIVE Urine Blood SMALL H Urine Nitrite NEGATIVE Ur Leukocyte Esterase MODERATE H Urine WBC (Auto) 46 Urine RBC (Auto) 8 11/10/18 11/10/18 11/10/18 23:20 23:20 23:20 Creatine Kinase 118 CK-MB (CK-2) 4.39 Troponin I 0.078 NT-Pro-B Natriuret Pep 426 Impressions: Chest X-Ray 11/10/18 22:05 IMPRESSION: Endotracheal and enteric tubes are in place as above. No acute cardiopulmonary process. copyright 2010 [employer]- All Rights Reserved Cervical Spine CT 11/10/18 22:06 IMPRESSION: No acute cervical spinal fracture is identified. Multilevel degenerative change Head CT 11/10/18 22:06 IMPRESSION: No acute intracranial abnormality is identified. Assessment and Plan - Diagnosis (1) Acute and chronic respiratory failure with hypercapnia Is this a current diagnosis for this admission?: Yes Plan: Complicated by alcohol intoxication and COPD with O2 dependence. ICU admission, ventilator support, follow-up ABG (2) Acute kidney injury superimposed on chronic kidney disease Is this a current diagnosis for this admission?: Yes Plan: Likely secondary to chronic noncompliance, avoid nephrotoxic meds and doses follow-up chemistry (3) Alcohol abuse Is this a current diagnosis for this admission?: Yes Plan: Anticipate high requirement of benzodiazepine and narcotics for sedation, folate and thiamine initiated. (4) Altered mental status Qualifiers: Altered mental status type: coma Coma depth: [place] coma 3-8 Coma timing: in the field (EMT or ambulance) Qualified Code(s): R40.2431 - [place] coma scale score 3-8, in the field [EMT or ambulance] Is this a current diagnosis for this admission?: Yes Plan: Multifactorial secondary to alcohol intoxication with hypercapnic, hypoxic respiratory failure. (5) Hyperkalemia Is this a current diagnosis for this admission?: Yes Plan: Without peak T waves patient has received normal saline, albuterol, Atrovent, calcium gluconate and lactulose. Follow-up chemistry - Time Time Spent with patient: 35 or more minutes - Inpatient Certification Medical Necessity: Need Close Monitoring Due to Risk of Patient Decompensation
[2018-11-11 05:55] LABS: ALANINE AMINOTRANSFERASE 16 U/L (21-72); ALBUMIN 3.5 g/dL (3.5-5.0); ALKALINE PHOSPHATASE 72 U/L (38-126); ANION GAP 12 (5-19); ASPARTATE AMINO TRANSFERASE 19 U/L (17-59); BILIRUBIN,DIRECT 0.2 mg/dL (0.0-0.4); BILIRUBIN,TOTAL 0.3 mg/dL (0.2-1.3); BLOOD UREA NITROGEN 49 mg/dL (7-20); CALCIUM 9.6 mg/dL (8.4-10.2); CARBON DIOXIDE 30 mmol/L (22-30); CHLORIDE 102 mmol/L (98-107); CREATINE KINASE 109 U/L (55-170); GLUCOSE 74 mg/dL (75-110); SODIUM 143.5 mmol/L (137-145); TOTAL PROTEIN 6.6 g/dL (6.3-8.2)
[2018-11-11] MEDS: FENTANYL CITRATE INJ/PF 100 MCG/2 ML AMPUL IV PRN ×2 (05:57→09:47)
[2018-11-11 06:05] LABS: POTASSIUM 5.8 mmol/L (3.6-5.0)
[2018-11-11 06:07] LABS: CREATINE KINASE MB 3.94 ng/mL (<4.55); TROPONIN I 0.097 ng/mL
[2018-11-11 06:41] LABS: ARTERIAL BLOOD BASE EXCESS 1.7 mmol/L; ARTERIAL BLOOD FIO2 45%; ARTERIAL BLOOD H2CO3 1.73 mmol/L (1.05-1.35); ARTERIAL BLOOD HCO3 29.1 mmol/L (20-24); ARTERIAL BLOOD O2 SATURATION 96.5 % (94-98); ARTERIAL BLOOD PCO2 57.6 mmHg (35-45); ARTERIAL BLOOD PH 7.32 (7.35-7.45); ARTERIAL BLOOD PO2 93.8 mmHg (80-100); ARTERIAL BLOOD TOTAL CO2 30.8 mmol/L (23-27)
--- NOTE | 2018-11-11 07:25 | EKG REPORT ---
SEVERITY:- ABNORMAL ECG - SINUS RHYTHM SUPRAVENTRICULAR BIGEMINY LOW VOLTAGE THROUGHOUT NONSPECIFIC ST-T CHANGES- INFERIOR LEADS : Confirmed by: Reno Lemon MD 11-Nov-2018 07:24:37
[2018-11-11] MEDS ORDERED: IPRATROPIUM/ALBUTEROL 0.5-2.5 MG/3 ML AMPUL NEB SCH (08:00)
[2018-11-11] MEDS ORDERED: ROCURONIUM BROMIDE INJ 50 MG/5 ML VIAL IV ONE (09:17)
[2018-11-11] MEDS ORDERED: ETOMIDATE INJ/PF 20 MG/10 ML SDV IV ONE (09:18)
[2018-11-11] MEDS: DOCUSATE SODIUM 100 MG/10 ML UDC PO SCH ×2 (09:49→17:38)
[2018-11-11] MEDS ORDERED: TAMSULOSIN HCL 0.4 MG CAP.SR.24H PO SCH (10:00)
[2018-11-11] MEDS ORDERED: METOPROLOL SUCCINATE 25 MG TAB.SR.24H PO SCH (10:00)
[2018-11-11 11:52] LABS: CREATINE KINASE MB 3.86 ng/mL (<4.55); TROPONIN I 0.067 ng/mL
--- NOTE | 2018-11-11 13:24 | PDOC PROGRESS REPORT ---
Subjective Progress Note for:: 11/11/18 Subjective:: The patient is intubated and sedated. He just had an episode of agitation with flailing. He responded to IV lorazepam. Reason For Visit: ACUTE RESP FAILURE, CKD, ETOH INTOX Physical Exam Vital Signs: Temp Pulse Resp BP Pulse Ox 99.3 F 93 16 148/94 H 95 11/11/18 08:00 11/11/18 10:00 11/11/18 10:22 11/11/18 10:22 11/11/18 10:22 Intake & Output 11/10/18 11/11/18 11/12/18 06:59 06:59 06:59 Intake Total 1633 551 Output Total 1350 800 Balance 283 -249 Weight 113.7 kg General appearance: PRESENT: mild distress, obese, well-developed, other - Sedated Head exam: PRESENT: atraumatic, normocephalic Eye exam: PRESENT: conjunctival injection, conjunctiva pink. ABSENT: scleral icterus Ear exam: PRESENT: normal external ear exam Mouth exam: PRESENT: other - Endotracheal and orogastric tube in place Respiratory exam: PRESENT: clear to auscultation abi, symmetrical. ABSENT: ral es, rhonchi, wheezes Cardiovascular exam: PRESENT: +S1, +S2, tachycardia Pulses: PRESENT: normal dorsalis pedis pul GI/Abdominal exam: PRESENT: normal bowel sounds, soft, other - Protuberant abdomen. ABSENT: tenderness Rectal exam: PRESENT: deferred Gentrourinary exam: PRESENT: indwelling catheter Extremities exam: ABSENT: pedal edema Musculoskeletal exam: PRESENT: normal inspection Neurological exam: PRESENT: other - Sedated. ABSENT: awake Psychiatric exam: PRESENT: agitated - But responded to Lorazepam Results Laboratory Results: 11/11/18 05:00 11/11/18 05:00 11/10/18 11/10/18 11/10/18 23:20 23:20 23:20 WBC 9.4 RBC 4.64 Hgb 14.9 Hct 45.4 MCV 98 H MCH 32.1 MCHC 32.8 RDW 14.5 H Plt Count 350 Seg Neutrophils % 82.9 H Lymphocytes % 8.3 L Monocytes % 8.6 Eosinophils % 0.1 Basophils % 0.1 Absolute Neutrophils 7.8 Absolute Lymphocytes 0.8 Absolute Monocytes 0.8 Absolute Eosinophils 0.0 Absolute Basophils 0.0 Carbonic Acid HCO3/H2CO3 Ratio ABG pH ABG pCO2 ABG pO2 ABG HCO3 ABG O2 Saturation ABG Base Excess FiO2 Sodium 139.6 Potassium 7.5 H* Chloride 97 L Carbon Dioxide 32 H Anion Gap 11 BUN 48 H Creatinine 2.26 H Est GFR ( Amer) 36 L Est GFR (Non-Af Amer) 30 L Glucose 122 H Calcium 8.9 Magnesium 2.4 H Total Bilirubin 0.3 AST 22 ALT 28 Alkaline Phosphatase 91 Total Protein 7.5 Albumin 4.1 Lipase 409.7 H TSH Urine Color Urine Appearance Urine pH Ur Specific [place] Urine Protein Urine Glucose (UA) Urine Ketones Urine Blood Urine Nitrite Ur Leukocyte Esterase Urine WBC (Auto) Urine RBC (Auto) 11/10/18 11/10/18 11/11/18 23:20 23:30 02:20 WBC RBC Hgb Hct MCV MCH MCHC RDW Plt Count Seg Neutrophils % Lymphocytes % Monocytes % Eosinophils % Basophils % Absolute Neutrophils Absolute Lymphocytes Absolute Monocytes Absolute Eosinophils Absolute Basophils Carbonic Acid 2.55 H HCO3/H2CO3 Ratio 12:1 ABG pH 7.18 L* ABG pCO2 84.8 H* ABG pO2 72.5 L ABG HCO3 30.9 H ABG O2 Saturation 89.6 L ABG Base Excess -0.4 FiO2 40% Sodium Potassium Chloride Carbon Dioxide Anion Gap BUN Creatinine Est GFR ( Amer) Est GFR (Non-Af Amer) Glucose Calcium Magnesium Total Bilirubin AST ALT Alkaline Phosphatase Total Protein Albumin Lipase TSH 0.76 Urine Color YELLOW Urine Appearance CLOUDY Urine pH 5.0 Ur Specific [place] 1.010 Urine Protein NEGATIVE Urine Glucose (UA) 50 H Urine Ketones NEGATIVE Urine Blood SMALL H Urine Nitrite NEGATIVE Ur Leukocyte Esterase MODERATE H Urine WBC (Auto) 46 Urine RBC (Auto) 8 11/11/18 11/11/18 11/11/18 05:00 05:00 06:15 WBC 11.3 H RBC 4.27 L Hgb 13.9 Hct 41.5 MCV 97 MCH 32.5 MCHC 33.5 RDW 14.4 H Plt Count 326 Seg Neutrophils % 74.0 Lymphocytes % 12.9 L Monocytes % 12.5 Eosinophils % 0.4 Basophils % 0.2 Absolute Neutrophils 8.4 H Absolute Lymphocytes 1.5 Absolute Monocytes 1.4 Absolute Eosinophils 0.0 Absolute Basophils 0.0 Carbonic Acid 1.73 H HCO3/H2CO3 Ratio 16:1 ABG pH 7.32 L ABG pCO2 57.6 H ABG pO2 93.8 ABG HCO3 29.1 H ABG O2 Saturation 96.5 ABG Base Excess 1.7 FiO2 45% Sodium 143.5 Potassium 5.8 H D Chloride 102 Carbon Dioxide 30 Anion Gap 12 BUN 49 H Creatinine 1.95 H Est GFR ( Amer) 43 L Est GFR (Non-Af Amer) 35 L Glucose 74 L Calcium 9.6 Magnesium Total Bilirubin 0.3 AST 19 ALT 16 L Alkaline Phosphatase 72 Total Protein 6.6 Albumin 3.5 Lipase TSH Urine Color Urine Appearance Urine pH Ur Specific [place] Urine Protein Urine Glucose (UA) Urine Ketones Urine Blood Urine Nitrite Ur Leukocyte Esterase Urine WBC (Auto) Urine RBC (Auto) 11/10/18 11/10/18 11/10/18 23:20 23:20 23:20 Creatine Kinase 118 CK-MB (CK-2) 4.39 Troponin I 0.078 NT-Pro-B Natriuret Pep 426 11/11/18 11/11/18 11/11/18 05:00 05:00 11:12 Creatine Kinase 109 103 CK-MB (CK-2) 3.94 Troponin I 0.097 NT-Pro-B Natriuret Pep 11/11/18 11:12 Creatine Kinase CK-MB (CK-2) 3.86 Troponin I 0.067 NT-Pro-B Natriuret Pep Impressions: Chest X-Ray 11/10/18 22:05 IMPRESSION: Endotracheal and enteric tubes are in place as above. No acute cardiopulmonary process. copyright 2010 [employer]- All Rights Reserved Cervical Spine CT 11/10/18 22:06 IMPRESSION: No acute cervical spinal fracture is identified. Multilevel degenerative change Head CT 11/10/18 22:06 IMPRESSION: No acute intracranial abnormality is identified. Assessment and Plan - Diagnosis (1) Acute and chronic respiratory failure with hypercapnia Is this a current diagnosis for this admission?: Yes Plan: Complicated by alcohol intoxication and COPD with O2 dependence. ICU admission, ventilator support, follow-up ABG 11/11/2018-the patient's PCO2 is down to 57 from 84. History of COPD. According to one medication list he was on Advair 20665 Diskus 1 inhalation every 12 hours. Continue nebulizer treatments and add Pulmicort. FiO2 is 45%. Continue current settings. Continue weaning. Acute alcohol withdrawal will likely slow weaning. (2) Acute kidney injury superimposed on chronic kidney disease Is this a current diagnosis for this admission?: Yes Plan: Likely secondary to chronic noncompliance, avoid nephrotoxic meds and doses follow-up chemistry 11/11/2018-serum creatinine is down to 1.95 from 2.26. As the patient is n.p.o. we will continue IV fluids. He does have a history of congestive heart failure so we will need to monitor intake and output. Because of his hyperkalemia I will also give 20 mg of furosemide daily in an effort to help flush potassium. (3) Alcohol abuse Is this a current diagnosis for this admission?: Yes Plan: Anticipate high requirement of benzodiazepine and narcotics for sedation, folate and thiamine initiated. 11/11/2018-serum alcohol on admission was 196. The patient was showing agitation this morning and likely entering alcohol withdrawal. Multiple medications on board including propofol and Precedex with as needed medications available as well. Alcohol withdrawal may be slow extubation. (4) Altered mental status Qualifiers: Altered mental status type: coma Coma depth: [place] coma 3-8 Coma timing: in the field (EMT or ambulance) Qualified Code(s): R40.2431 - [place] coma scale score 3-8, in the field [EMT or ambulance] Is this a current diagnosis for this admission?: Yes Plan: Multifactorial secondary to alcohol intoxication with hypercapnic, hypoxic respiratory failure. 11/11/2018-the patient had a depressed [place] Coma Scale on admission. Currently he is sedated and will not be able to reassess until weaned from medications which will likely be after acute alcohol withdrawal. (5) Hyperkalemia Is this a current diagnosis for this admission?: Yes Plan: Without peak T waves patient has received normal saline, albuterol, Atrovent, calcium gluconate and lactulose. Follow-up chemistry 11/11/2018-serum potassium is improved. It is down below 6. Will give another dose of Kayexalate as well as IV fluids with furosemide to flush out potassium. Continue to monitor potassium level. Patient did not exhibit peaked T waves on EKG at admission. (6) Depression Qualifiers: Depression Type: unspecified Qualified Code(s): F32.9 - Major depressive disorder, single episode, unspecified Is this a current diagnosis for this admission?: Yes Plan: 11/11/2018-the patient is likely using alcohol to medicate for his depression despite being on duloxetine and bupropion. Will use short acting bupropion at this time. Consider adding back duloxetine when the patient is on an oral diet. In previous medications Chantix is also listed with his severe depression this may have been discontinued. (7) HTN (hypertension) Qualifiers: Hypertension type: essential hypertension Qualified Code(s): I10 - Essential (primary) hypertension Is this a current diagnosis for this admission?: Yes Plan: 11/11/2018-the patient exhibits tachycardia with elevated blood pressure. This may possibly be driven with his alcohol withdrawal. He is on metoprolol and I have added lisinopril. He is on a smaller dose of furosemide than he would be as an outpatient. We will continue to monitor his blood pressure. (8) Obesity (BMI 30-39.9) Is this a current diagnosis for this admission?: Yes Plan: 11/11/2018-with underlying cardiovascular risk including smoking and hypertension the patient would benefit from weight loss through diet and exercise. We will encourage this further along in his recovery. - Time Time Spent with patient: 25-34 minutes Medications reviewed and adjusted accordingly: Yes
[2018-11-11] MEDS: IPRATROPIUM/ALBUTEROL 0.5-2.5 MG/3 ML AMPUL NEB SCH ×2 (14:22→19:49)
[2018-11-11] MEDS: DEXMEDETOMIDINE IN 0.9 % NACL 400 MCG/100 ML RTUPB IV PRN ×2 (14:32→20:12)
[2018-11-11] MEDS ORDERED: SODIUM POLYSTYRENE SULFONATE 15 GM/60 ML NG ONE (15:00)
[2018-11-11] MEDS: BUDESONIDE NEB 0.5 MG/2 ML AMPUL NEB SCH (19:48)
[2018-11-11] MEDS: NORMAL SALINE 1000 ML 1,000 ML IV PRN (20:47)
[2018-11-11] MEDS ORDERED: METOPROLOL TARTRATE 25 MG TABLET NG SCH (22:00)
[2018-11-11] MEDS: ACETAMINOPHEN 325 MG TABLET PO PRN (22:19)
[2018-11-11] MEDS: MONTELUKAST SODIUM 10 MG TABLET NG SCH (22:21)
[2018-11-11] MEDS: BUPROPION HCL 75 MG TABLET NG SCH (22:21)
[2018-11-12] MEDS ORDERED: MIDAZOLAM HCL 50 MG/100 ML RTUINJ ONE (00:34)
[2018-11-12] MEDS ORDERED: MIDAZOLAM HCL 50 MG/100 ML RTUINJ IV PRN (00:40)
[2018-11-12] MEDS ORDERED: NORMAL SALINE 1000 ML 1,000 ML IV ONE (00:45)
[2018-11-12] MEDS ORDERED: NOREPINEPHRINE BITARTRATE INJ/PF 4 MG/4 ML SDV IV ONE (02:08)
[2018-11-12] MEDS ORDERED: DEXTROSE 5%-WATER 250 ML with NOREPINEPHRINE BITARTRATE 4 MG IV PRN ×2 (02:16)
[2018-11-12] MEDS: IPRATROPIUM/ALBUTEROL 0.5-2.5 MG/3 ML AMPUL NEB SCH ×4 (02:40→21:03)
[2018-11-12] MEDS: NORMAL SALINE 1000 ML 1,000 ML IV PRN (03:25)
--- NOTE | 2018-11-12 04:16 | Progress Note ---
Provider Note Provider Note: Critical care note: 11/12/2018 Start time: 0055 Critical care problem: hypotension The patient had been hypertensive for the previous day of his hospitalization, but dramatically developed hypotension (75/45) for no readily discernable reason. On general exam there was no evidence of bleeding in the NG tube or gonzalez catheter and no blood noted by nursing staff per rectum just prior to my exam. Chest is clear with excellent mechanical assist ventilation, heart regular rate and rhythm. Temp elevated to 38.1 C. Serum lactate ordered with AM lab. Propofol stopped with midazolam used for sedation. Fluid bolus given 1 liter NS. After no response to fluid bolus, Levophed infusion started as pressor support. Excellent response to pressor at low doses. End time: 0412 Total devoted face/presence time: 29 minutes.
[2018-11-12 04:24] LABS: ABSOLUTE BASOPHILS # (AUTO) 0.1 10^3/uL (0.0-0.2); ABSOLUTE EOSINOPHILS # (AUTO) 0.1 10^3/uL (0.0-0.6); ABSOLUTE LYMPHOCYTES (AUTO) 2.2 10^3/uL (0.5-4.7); ABSOLUTE MONOCYTES (AUTO) 1.4 10^3/uL (0.1-1.4); ABSOLUTE NEUT (AUTO) 11.6 10^3/uL (1.7-8.2); BASOPHILS % (AUTO) 0.4 % (0-2); EOSINOPHILS % (AUTO) 0.5 % (0-6); HEMATOCRIT 37.9 % (37.9-51.0); HEMOGLOBIN 12.6 g/dL (13.5-17.0); LYMPHOCYTES % (AUTO) 14.1 % (13-45); MEAN CORPUSCULAR HEMOGLOBIN 31.7 pg (27.0-33.4); MEAN CORPUSCULAR HGB CONC 33.1 g/dL (32.0-36.0); MEAN CORPUSCULAR VOLUME 96 fl (80-97); MONOCYTES % (AUTO) 9.5 % (3-13); PLATELET COUNT 259 10^3/uL (150-450); RED BLOOD COUNT 3.97 10^6/uL (4.35-5.55); RED CELL DISTRIBUTION WIDTH 14.6 % (11.5-14.0); SEGMENTED NEUTROPHILS % (AUTO) 75.5 % (42-78); TOTAL CELLS COUNTED % (AUTO) 100 %; WHITE BLOOD COUNT 15.3 10^3/uL (4.0-10.5)
[2018-11-12 04:45] LABS: ALANINE AMINOTRANSFERASE 19 U/L (21-72); ALBUMIN 2.8 g/dL (3.5-5.0); ALKALINE PHOSPHATASE 63 U/L (38-126); ANION GAP 6 (5-19); ASPARTATE AMINO TRANSFERASE 17 U/L (17-59); BILIRUBIN,DIRECT 0.1 mg/dL (0.0-0.4); BILIRUBIN,TOTAL 0.7 mg/dL (0.2-1.3); BLOOD UREA NITROGEN 37 mg/dL (7-20); CALCIUM 8.5 mg/dL (8.4-10.2); CARBON DIOXIDE 29 mmol/L (22-30); CHLORIDE 104 mmol/L (98-107); GLUCOSE 112 mg/dL (75-110); LIPASE 230.8 U/L (23-300); POTASSIUM 4.9 mmol/L (3.6-5.0); SODIUM 138.5 mmol/L (137-145); TOTAL PROTEIN 5.6 g/dL (6.3-8.2)
[2018-11-12] MEDS: LORAZEPAM INJ 2 MG/1 ML VIAL IV PRN ×4 (05:07→17:20)
[2018-11-12 05:16] LABS: ARTERIAL BLOOD BASE EXCESS 1.2 mmol/L; ARTERIAL BLOOD H2CO3 1.79 mmol/L (1.05-1.35); ARTERIAL BLOOD HCO3 28.9 mmol/L (20-24); ARTERIAL BLOOD O2 SATURATION 95.3 % (94-98); ARTERIAL BLOOD PCO2 59.6 mmHg (35-45); ARTERIAL BLOOD PO2 85.2 mmHg (80-100); ARTERIAL BLOOD TOTAL CO2 30.7 mmol/L (23-27)
[2018-11-12] MEDS: DEXMEDETOMIDINE IN 0.9 % NACL 400 MCG/100 ML RTUPB IV PRN ×6 (05:26→23:51)
[2018-11-12 05:31] LABS: ARTERIAL BLOOD FIO2 45%
[2018-11-12] MEDS ORDERED: HEPARIN SOD (PORCINE) 5,000 UNIT/ML 1 ML SYRINGE ONE (05:37)
[2018-11-12] MEDS: HEPARIN SOD (PORCINE) 5,000 UNIT/ML 1 ML SYRINGE SUBCUT SCH ×3 (05:54→21:21)
--- NOTE | 2018-11-12 06:29 | RADIOLOGY REPORT (SQ) ---
EXAM DESCRIPTION: CHEST SINGLE VIEW COMPLETED DATE/TIME: 11/12/2018 6:14 am REASON FOR STUDY: respiratory failure COMPARISON: 11/10/2018. NUMBER OF VIEWS: One view. TECHNIQUE: Single frontal radiographic view of the chest acquired. LIMITATIONS: None. FINDINGS: LUNGS AND PLEURA: Extremely low lung volumes. Progressive opacity, subsegmental atelectas is/ consolidation in the lingula and left lower lobe. Right lung remains relatively clear. No pneum othorax. MEDIASTINUM AND HILAR STRUCTURES: Stable. HEART AND VASCULAR STRUCTURES: Stable. BONES: No acute findings. HARDWARE: Appropriate endotracheal and nasogastric tubes. OTHER: No other significant finding. IMPRESSION: Worsening left lung aeration. Appropriate lines and tubes. TECHNICAL DOCUMENTATION: JOB ID: [id number] [employer] - [employer]- All Rights Reserved Reading location - IP/workstation name: [email or web address]
--- NOTE | 2018-11-12 07:33 | EKG REPORT ---
SEVERITY:- DEFECTIVE ECG - COMPUTER READING ALL ERRONEOUS, DEFECTIVE EKG, MUST REPEAT BEFORE INTERPRETATION. WIDE COMPLEX TACHYCARDIA (NO) RUN OF VENTRICULAR PREMATURE COMPLEXES (NO) NONSPECIFIC INTRAVENTRICULAR CONDUCTION DELAY (NO). : Confirmed by: Reno Lemon MD 12-Nov-2018 07:33:17
[2018-11-12] MEDS: BUDESONIDE NEB 0.5 MG/2 ML AMPUL NEB SCH ×2 (07:43→21:03)
[2018-11-12] MEDS ORDERED: GLUCAGON,HUMAN RECOMB 1 MG INJ IM PRN (08:13)
[2018-11-12] MEDS ORDERED: DEXTROSE 40% GEL 15 GM TUBE PO PRN ×2 (08:13)
[2018-11-12] MEDS ORDERED: DEXTROSE 50%-WATER 25 GM/50 ML DISP.SYRIN IV PRN ×2 (08:13)
[2018-11-12] MEDS ORDERED: HALOPERIDOL LACTATE INJ 5 MG/1 ML VIAL IV PRN (08:16)
[2018-11-12 08:59] LABS: APPEARANCE,URINE TURBID; BILIRUBIN,URINE NEGATIVE (NEGATIVE); GLUCOSE, URINE NEGATIVE (NEGATIVE); KETONES,URINE NEGATIVE (NEGATIVE); LEUKOCYTE ESTERASE,URINE LARGE (NEGATIVE); NITRITE,URINE NEGATIVE (NEGATIVE); PROTEIN,URINE 30 mg/dL (NEGATIVE); UROBILINOGEN,URINE NEGATIVE mg/dL (<2.0)
[2018-11-12 09:00] LABS: COLOR,URINE YELLOW
[2018-11-12] MEDS: FOLIC ACID/VITAMIN B COMP W-C CAPSULE NG SCH (09:22)
[2018-11-12] MEDS: THIAMINE HCL 100 MG TABLET NG SCH (09:22)
[2018-11-12] MEDS: BUPROPION HCL 75 MG TABLET NG SCH ×2 (09:22→21:24)
[2018-11-12] MEDS: DOCUSATE SODIUM 100 MG/10 ML UDC PO SCH ×2 (09:22→17:00)
[2018-11-12] MEDS: LORAZEPAM 24 MG/240 ML BAG IV PRN ×3 (09:47→21:28)
[2018-11-12] MEDS ORDERED: LISINOPRIL 10 MG TABLET NG SCH (10:00)
[2018-11-12] MEDS ORDERED: (PENDING PHARMACY ID) (Lisinopril [Prinivil] 20 MG) NG SCH (10:00)
[2018-11-12] MEDS ORDERED: CEFTRIAXONE 1 GM/D5W RTU 1 GM/50 ML RTUPB IV SCH (10:00)
[2018-11-12] MEDS: CEFTRIAXONE SODIUM 1,000 MG in DEXTROSE 5%-WATER 50 ML IV SCH (10:06)
[2018-11-12] MEDS: DEXTROSE 5%-NORMAL SALINE 1,000 ML IV PRN ×2 (10:07→21:43)
[2018-11-12] MEDS: INSULIN LISPRO 100 UNIT/ML 3 ML VIAL SUBCUT SCH ×3 (11:49→21:21)
[2018-11-12] MEDS: HALOPERIDOL LACTATE INJ 5 MG/1 ML VIAL IV PRN ×2 (14:00→21:40)
--- NOTE | 2018-11-12 14:29 | PDOC PROGRESS REPORT ---
Subjective Progress Note for:: 11/12/18 Subjective:: KAMERON TRUJILLO is a 58 year old male with a past medical history of alcohol abuse, hypertension, hepatic cirrhosis, chronic kidney disease, and COPD with oxygen dependence. Patient presents to the emergency department via EMS with altered mental status and subsequently history is obtained by the record. He is intubated by emergency department provider for a GCS of 3 with hypoxia and unprotected airway. Patient was noted by his at approximately 7:30 PM com plaining of feeling tired and found approximately 15 minutes later unresponsive. Patient's believed he had been drinking excessively. ABG reveals hypoxic and hypercapnic respiratory failure, chemistry reveals a potassium 7.5 without peak T waves, creatinine of 2.2, serum alcohol is 196. Family is unavailable for interview. 11/12/2018. Overnight patient became hypotensive, likely due to propofol. Propofol was DC'd and patient was started on Precedex and midazolam him a briefly placed on levofed. Extremely agitated and riding the vent even being on Precedex and midazolam. Midazolam was switched with Ativan, and as needed Haldol with good results. SBP 42834, T-max 100.6, pulse 18274, RR 1732, SPO2 92% 5-50 per echo ventilation. VT 550, rate set 16, PEEP 5. ABG: pH 7.30, PCO2 59.6, PO2 85.2, FiO2 45%. WBC 15.3, bands 0, hemoglobin 12.6, platelets 259, sodium 138.5, potassium 4.9, bicarb 29, creatinine 1.43 down from 2.26 on admission, baseline 0.8, Reason For Visit: ACUTE RESP FAILURE, CKD, ETOH INTOX Physical Exam Vital Signs: Temp Pulse Resp BP Pulse Ox 100.6 F H 89 32 H 129/89 H 92 11/12/18 12:00 11/12/18 14:00 11/12/18 14:00 11/12/18 14:00 11/12/18 14:00 Intake & Output 11/11/18 11/12/18 11/13/18 06:59 06:59 06:59 Intake Total 1633 2031 2395 Output Total 1350 2480 420 Balance 283 -449 1975 Weight 113.7 kg 113.4 kg General appearance: PRESENT: obese, other - Agitated. Head exam: PRESENT: atraumatic, normocephalic Neck exam: ABSENT: carotid bruit, JVD, lymphadenopathy, thyromegaly Respiratory exam: PRESENT: clear to auscultation abi. ABSENT: rales, rhonchi, wheezes Cardiovascular exam: PRESENT: RRR, tachycardia. ABSENT: diastolic murmur, rubs, systolic murmur GI/Abdominal exam: PRESENT: normal bowel sounds, soft. ABSENT: distended, guarding, mass, organolmegaly, rebound, tenderness Extremities exam: PRESENT: full ROM. ABSENT: calf tenderness, clubbing, pedal edema Neurological exam: PRESENT: other - Sedated and intubated. Psychiatric exam: PRESENT: agitated Results Laboratory Results: 11/12/18 04:11 11/12/18 04:11 11/12/18 11/12/18 11/12/18 04:11 04:11 04:11 WBC 15.3 H RBC 3.97 L Hgb 12.6 L Hct 37.9 MCV 96 MCH 31.7 MCHC 33.1 RDW 14.6 H Plt Count 259 Seg Neutrophils % 75.5 Lymphocytes % 14.1 Monocytes % 9.5 Eosinophils % 0.5 Basophils % 0.4 Absolute Neutrophils 11.6 H Absolute Lymphocytes 2.2 Absolute Monocytes 1.4 Absolute Eosinophils 0.1 Absolute Basophils 0.1 Carbonic Acid HCO3/H2CO3 Ratio ABG pH ABG pCO2 ABG pO2 ABG HCO3 ABG O2 Saturation ABG Base Excess FiO2 Sodium 138.5 Potassium 4.9 Chloride 104 Carbon Dioxide 29 Anion Gap 6 BUN 37 H Creatinine 1.43 H Est GFR ( Amer) > 60 Est GFR (Non-Af Amer) 50 L Glucose 112 H Lactic Acid 1.5 Calcium 8.5 Magnesium Total Bilirubin 0.7 AST 17 ALT 19 L Alkaline Phosphatase 63 Total Protein 5.6 L Albumin 2.8 L Lipase 230.8 Urine Color Urine Appearance Urine pH Ur Specific [place] Urine Protein Urine Glucose (UA) Urine Ketones Urine Blood Urine Nitrite Ur Leukocyte Esterase Urine WBC (Auto) Urine RBC (Auto) 11/12/18 11/12/18 11/12/18 04:11 05:05 08:30 WBC RBC Hgb Hct MCV MCH MCHC RDW Plt Count Seg Neutrophils % Lymphocytes % Monocytes % Eosinophils % Basophils % Absolute Neutrophils Absolute Lymphocytes Absolute Monocytes Absolute Eosinophils Absolute Basophils Carbonic Acid 1.79 H HCO3/H2CO3 Ratio 16:1 ABG pH 7.30 L ABG pCO2 59.6 H ABG pO2 85.2 ABG HCO3 28.9 H ABG O2 Saturation 95.3 ABG Base Excess 1.2 FiO2 45% Sodium Potassium Chloride Carbon Dioxide Anion Gap BUN Creatinine Est GFR ( Amer) Est GFR (Non-Af Amer) Glucose Lactic Acid Calcium Magnesium 1.7 Total Bilirubin AST ALT Alkaline Phosphatase Total Protein Albumin Lipase Urine Color YELLOW Urine Appearance TURBID Urine pH 5.0 Ur Specific [place] 1.020 Urine Protein 30 H Urine Glucose (UA) NEGATIVE Urine Ketones NEGATIVE Urine Blood MODERATE H Urine Nitrite NEGATIVE Ur Leukocyte Esterase LARGE H Urine WBC (Auto) >182 Urine RBC (Auto) 128 11/10/18 11/10/18 11/10/18 23:20 23:20 23:20 Creatine Kinase 118 CK-MB (CK-2) 4.39 Troponin I 0.078 NT-Pro-B Natriuret Pep 426 11/11/18 11/11/18 11/11/18 05:00 05:00 11:12 Creatine Kinase 109 103 CK-MB (CK-2) 3.94 Troponin I 0.097 NT-Pro-B Natriuret Pep 11/11/18 11:12 Creatine Kinase CK-MB (CK-2) 3.86 Troponin I 0.067 NT-Pro-B Natriuret Pep Impressions: Cervical Spine CT 11/10/18 22:06 IMPRESSION: No acute cervical spinal fracture is identified. Multilevel degenerative change Head CT 11/10/18 22:06 IMPRESSION: No acute intracranial abnormality is identified. Chest X-Ray 11/12/18 06:00 IMPRESSION: Worsening left lung aeration. Appropriate lines and tubes. Assessment and Plan - Diagnosis (1) Acute and chronic respiratory failure with hypercapnia Is this a current diagnosis for this admission?: Yes Plan: Multifactorial. Complicated by acute EtOH intoxication/COPD exacerbation with oxygen dependence. Continue ventilatory support, DT protocol, ICU admission, daily ABG and chest x- ray. 11/12/2018: SBP 75426, T-max 100.6, P 66450, RR 1732, SPO2 92% FiO2 50%. VT 550, RR 16, PEEP 5. ABG: pH 7.30, PCO2 59.6, PO2 85.2, FiO2 45%. (2) Acute alcohol intoxication with alcoholism Qualifiers: Complication of substance-induced condition: with delirium Qualified Code(s): F10.221 - Alcohol dependence with intoxication delirium Is this a current diagnosis for this admission?: No Plan: Serum alcohol 196 on admission. Patient still agitated even being on Precedex and midazolam. Switch to Ativan drip, PRN Haldol. Continue D5 NS, Ativan drip, folate, vitamin B12, thiamine supplement. Monitor for seizures. (3) Acute kidney injury superimposed on chronic kidney disease Is this a current diagnosis for this admission?: Yes Plan: Improving. Likely prerenal. Creatinine 2.26 on admission. Baseline 0.8. 11/12/2018: WBC 15.3, bands 0, hemoglobin 12.6, platelets 259, sodium 138.5, potassium 4.9, bicarb 29, creatinine 1.43 down from 2.26 on admission, baseline 0.8, Continue IV fluids, monitor volume status, monitor electrolytes, replace as needed. (4) Altered mental status Qualifiers: Altered mental status type: coma Coma depth: [place] coma 3-8 Coma timing: in the field (EMT or ambulance) Qualified Code(s): R40.2431 - [place] coma scale score 3-8, in the field [EMT or ambulance] Is this a current diagnosis for this admission?: Yes Plan: As per #2. (5) HTN (hypertension) Qualifiers: Hypertension type: essential hypertension Qualified Code(s): I10 - Essential (primary) hypertension Is this a current diagnosis for this admission?: Yes Plan: Not optimized. Likely exacerbated by agitation. Continue Lasix, lisinopril. Adjust meds as needed. 11/12/2018: SBP 80138, T-max 100.6, P 81471, RR 1732, SPO2 92% FiO2 50%. (6) Obesity (BMI 30-39.9) Is this a current diagnosis for this admission?: Yes Plan: Encourage diet and lifestyle modification. (7) Pneumonia Is this a current diagnosis for this admission?: No Plan: Likely aspiration. Leukocytosis and fever. Sputum and blood culture. Emperic IV antibiotics. Leukoytosis and fever. 11/12/2018: SBP 40073, T-max 100.6, P 87622, RR 1732, SPO2 92% FiO2 50%. VT 550, RR 16, PEEP 5. ABG: pH 7.30, PCO2 59.6, PO2 85.2, FiO2 45%.
[2018-11-12] MEDS: FENTANYL CITRATE INJ/PF 100 MCG/2 ML AMPUL IV PRN ×2 (17:22→21:08)
[2018-11-12] MEDS: ACETAMINOPHEN 325 MG TABLET PO PRN (21:24)
[2018-11-12] MEDS: MONTELUKAST SODIUM 10 MG TABLET NG SCH (21:24)
[2018-11-13] MEDS: LORAZEPAM 24 MG/240 ML BAG IV PRN ×5 (02:00→21:00)
[2018-11-13] MEDS: HALOPERIDOL LACTATE INJ 5 MG/1 ML VIAL IV PRN ×3 (02:29→19:46)
[2018-11-13] MEDS: FENTANYL CITRATE INJ/PF 100 MCG/2 ML AMPUL IV PRN ×3 (02:29→19:45)
[2018-11-13] MEDS: DEXMEDETOMIDINE IN 0.9 % NACL 400 MCG/100 ML RTUPB IV PRN ×8 (02:33→21:24)
[2018-11-13] MEDS: IPRATROPIUM/ALBUTEROL 0.5-2.5 MG/3 ML AMPUL NEB SCH ×4 (02:54→19:44)
[2018-11-13 04:26] LABS: ABSOLUTE BASOPHILS # (AUTO) 0.1 10^3/uL (0.0-0.2); ABSOLUTE EOSINOPHILS # (AUTO) 0.1 10^3/uL (0.0-0.6); ABSOLUTE LYMPHOCYTES (AUTO) 2.5 10^3/uL (0.5-4.7); ABSOLUTE MONOCYTES (AUTO) 1.5 10^3/uL (0.1-1.4); ABSOLUTE NEUT (AUTO) 15.5 10^3/uL (1.7-8.2); BASOPHILS % (AUTO) 0.3 % (0-2); EOSINOPHILS % (AUTO) 0.7 % (0-6); HEMATOCRIT 36.4 % (37.9-51.0); HEMOGLOBIN 12.1 g/dL (13.5-17.0); LYMPHOCYTES % (AUTO) 12.9 % (13-45); MEAN CORPUSCULAR HEMOGLOBIN 31.7 pg (27.0-33.4); MEAN CORPUSCULAR HGB CONC 33.2 g/dL (32.0-36.0); MEAN CORPUSCULAR VOLUME 96 fl (80-97); MONOCYTES % (AUTO) 7.5 % (3-13); PLATELET COUNT 222 10^3/uL (150-450); RED CELL DISTRIBUTION WIDTH 14.4 % (11.5-14.0); SEGMENTED NEUTROPHILS % (AUTO) 78.6 % (42-78); TOTAL CELLS COUNTED % (AUTO) 100 %; WHITE BLOOD COUNT 19.7 10^3/uL (4.0-10.5)
[2018-11-13 04:33] LABS: ALANINE AMINOTRANSFERASE 20 U/L (21-72); ALBUMIN 2.6 g/dL (3.5-5.0); ALKALINE PHOSPHATASE 66 U/L (38-126); ANION GAP 7 (5-19); ASPARTATE AMINO TRANSFERASE 13 U/L (17-59); BILIRUBIN,DIRECT 0.2 mg/dL (0.0-0.4); BILIRUBIN,TOTAL 0.6 mg/dL (0.2-1.3); BLOOD UREA NITROGEN 19 mg/dL (7-20); CALCIUM 8.5 mg/dL (8.4-10.2); CARBON DIOXIDE 27 mmol/L (22-30); CHLORIDE 103 mmol/L (98-107); GLUCOSE 138 mg/dL (75-110); POTASSIUM 4.1 mmol/L (3.6-5.0); SODIUM 137.4 mmol/L (137-145); TOTAL PROTEIN 5.3 g/dL (6.3-8.2)
[2018-11-13] MEDS: HEPARIN SOD (PORCINE) 5,000 UNIT/ML 1 ML SYRINGE SUBCUT SCH ×3 (05:18→21:27)
[2018-11-13 05:58] LABS: ARTERIAL BLOOD BASE EXCESS 2.1 mmol/L; ARTERIAL BLOOD H2CO3 1.32 mmol/L (1.05-1.35); ARTERIAL BLOOD HCO3 27.1 mmol/L (20-24); ARTERIAL BLOOD O2 SATURATION 94.3 % (94-98); ARTERIAL BLOOD PCO2 43.9 mmHg (35-45); ARTERIAL BLOOD PH 7.41 (7.35-7.45); ARTERIAL BLOOD PO2 70.8 mmHg (80-100); ARTERIAL BLOOD TOTAL CO2 28.5 mmol/L (23-27)
[2018-11-13 06:01] LABS: ARTERIAL BLOOD FIO2 40%
[2018-11-13] MEDS: BUDESONIDE NEB 0.5 MG/2 ML AMPUL NEB SCH ×2 (07:53→19:44)
[2018-11-13] MEDS: INSULIN LISPRO 100 UNIT/ML 3 ML VIAL SUBCUT SCH ×3 (08:02→15:53)
--- NOTE | 2018-11-13 08:34 | RADIOLOGY REPORT (SQ) ---
EXAM DESCRIPTION: CHEST SINGLE VIEW COMPLETED DATE/TIME: 11/13/2018 6:16 am REASON FOR STUDY: respiratory failure COMPARISON: 11/12/2018 NUMBER OF VIEWS: One view. TECHNIQUE: Single frontal radiographic image of the chest acquired. LIMITATIONS: None. FINDINGS: LUNGS AND PLEURA: Low lung volumes. Small effusions. No pneumothorax. MEDIASTINUM AND HEART: Stable heart size and mediastinal structures. SUPPORT DEVICES: Appropriate location without change. BONY STRUCTURES: No acute findings. HARDWARE: None. OTHER: No other significant finding. IMPRESSION: STABLE APPEARANCE OF THE CHEST. SUPPORT DEVICES UNCHANGED. Reading location - IP/workstation name: [email or web address]
[2018-11-13] MEDS: BUPROPION HCL 75 MG TABLET NG SCH ×2 (09:24→21:27)
[2018-11-13] MEDS: CEFTRIAXONE SODIUM 1,000 MG in DEXTROSE 5%-WATER 50 ML IV SCH (09:24)
[2018-11-13] MEDS: FAMOTIDINE 20 MG TABLET PO SCH ×2 (09:24→21:27)
[2018-11-13] MEDS: DOCUSATE SODIUM 100 MG/10 ML UDC PO SCH ×2 (09:24→17:11)
[2018-11-13] MEDS: OLANZAPINE 5 MG TABLET PO SCH ×2 (09:27→21:27)
[2018-11-13] MEDS: FOLIC ACID/VITAMIN B COMP W-C CAPSULE NG SCH (09:27)
[2018-11-13] MEDS: TAMSULOSIN HCL 0.4 MG CAP.SR.24H PO SCH (09:27)
[2018-11-13] MEDS: THIAMINE HCL 100 MG TABLET NG SCH (09:27)
[2018-11-13] MEDS: FUROSEMIDE 40 MG TABLET PO SCH (09:28)
[2018-11-13] MEDS: DEXTROSE 5%-NORMAL SALINE 1,000 ML IV PRN ×2 (09:28→21:30)
[2018-11-13] MEDS ORDERED: (PENDING PHARMACY ID) (Bupropion Hcl [Wellbutrin Xl 150 Mg 24hr Tablet] 1 TAB) PO SCH (10:00)
[2018-11-13] MEDS ORDERED: BUPROPION HCL 75 MG TABLET PO SCH (10:00)
[2018-11-13] MEDS: PIPERACILLIN SODIUM/TAZOBACTAM 3.375 GM in NORMAL SALINE 100 ML IV SCH ×2 (10:57→17:11)
--- NOTE | 2018-11-13 13:35 | PDOC PROGRESS REPORT ---
Subjective Progress Note for:: 11/13/18 Subjective:: KAMERON TRUJILLO is a 58 year old male with a past medical history of alcohol abuse, hypertension, hepatic cirrhosis, chronic kidney disease, and COPD with oxygen dependence. Patient presents to the emergency department via EMS with altered mental status and subsequently history is obtained by the record. He is intubated by emergency department provider for a GCS of 3 with hypoxia and unprotected airway. Patient was noted by his at approximately 7:30 PM com plaining of feeling tired and found approximately 15 minutes later unresponsive. Patient's believed he had been drinking excessively. ABG reveals hypoxic and hypercapnic respiratory failure, chemistry reveals a potassium 7.5 without peak T waves, creatinine of 2.2, serum alcohol is 196. Family is unavailable for interview. 11/12/2018. Overnight patient became hypotensive, likely due to propofol. Propofol was DC'd and patient was started on Precedex and midazolam him a briefly placed on levofed. Extremely agitated and riding the vent even being on Precedex and midazolam. Midazolam was switched with Ativan, and as needed Haldol with good results. SBP 81356, T-max 100.6, pulse 13106, RR 1732, SPO2 92% 5-50 per echo ventilation. VT 550, rate set 16, PEEP 5. ABG: pH 7.30, PCO2 59.6, PO2 85.2, FiO2 45%. WBC 15.3, bands 0, hemoglobin 12.6, platelets 259, sodium 138.5, potassium 4.9, bicarb 29, creatinine 1.43 down from 2.26 on admission, baseline 0.8, 11/13/2018. No acute events overnight, patient has been less agitated than yesterday, in the morning he got agitated again, still sedated on propofol and Ativan drip with as needed Haldol. SBP 69971, T-max 100.4, pulse 60s, RR 2033, SPO2 9195 FiO2 40%, ABG pH 7.41, PCO2 43.9, PO2 70.8, FiO2 40%, SIMV, VT 550, PEEP 5. WBC 19.7 up from 15.3, no bandemia, hemoglobin 12.1, platelet 222, sodium 137, potassium 4.1, bicarb 27, creatinine 1.03, FBG 138, POC glucose [id number], Reason For Visit: ACUTE RESP FAILURE, CKD, ETOH INTOX Physical Exam Vital Signs: Temp Pulse Resp BP Pulse Ox 100.4 F 69 20 113/71 95 11/13/18 12:00 11/13/18 12:00 11/13/18 12:00 11/13/18 12:00 11/13/18 12:00 Intake & Output 11/12/18 11/13/18 11/14/18 06:59 06:59 06:59 Intake Total 2031 4783 1590 Output Total 2480 2230 850 Balance -449 2553 740 Weight 113.4 kg 116.8 kg General appearance: PRESENT: mild distress, other - Intubated, sedated, Head exam: PRESENT: atraumatic, normocephalic Respiratory exam: PRESENT: clear to auscultation abi. ABSENT: rales, rhonchi, wheezes Cardiovascular exam: PRESENT: RRR. ABSENT: diastolic murmur, rubs, systolic murmur GI/Abdominal exam: PRESENT: normal bowel sounds, soft. ABSENT: distended, guarding, mass, organolmegaly, rebound, tenderness Extremities exam: PRESENT: full ROM. ABSENT: calf tenderness, clubbing, pedal edema Neurological exam: PRESENT: other - Intubated, sedated. Results Laboratory Results: 11/13/18 03:47 11/13/18 03:47 11/13/18 11/13/18 11/13/18 03:47 03:47 05:33 WBC 19.7 H RBC 3.80 L Hgb 12.1 L Hct 36.4 L MCV 96 MCH 31.7 MCHC 33.2 RDW 14.4 H Plt Count 222 Seg Neutrophils % 78.6 H Lymphocytes % 12.9 L Monocytes % 7.5 Eosinophils % 0.7 Basophils % 0.3 Absolute Neutrophils 15.5 H Absolute Lymphocytes 2.5 Absolute Monocytes 1.5 H Absolute Eosinophils 0.1 Absolute Basophils 0.1 Carbonic Acid 1.32 HCO3/H2CO3 Ratio 20:1 ABG pH 7.41 ABG pCO2 43.9 ABG pO2 70.8 L ABG HCO3 27.1 H ABG O2 Saturation 94.3 ABG Base Excess 2.1 FiO2 40% Sodium 137.4 Potassium 4.1 Chloride 103 Carbon Dioxide 27 Anion Gap 7 BUN 19 Creatinine 1.03 Est GFR ( Amer) > 60 Est GFR (Non-Af Amer) > 60 Glucose 138 H Calcium 8.5 Magnesium 1.7 Total Bilirubin 0.6 AST 13 L ALT 20 L Alkaline Phosphatase 66 Total Protein 5.3 L Albumin 2.6 L 11/10/18 11/10/18 11/10/18 23:20 23:20 23:20 Creatine Kinase 118 CK-MB (CK-2) 4.39 Troponin I 0.078 NT-Pro-B Natriuret Pep 426 11/11/18 11/11/18 11/11/18 05:00 05:00 11:12 Creatine Kinase 109 103 CK-MB (CK-2) 3.94 Troponin I 0.097 NT-Pro-B Natriuret Pep 11/11/18 11:12 Creatine Kinase CK-MB (CK-2) 3.86 Troponin I 0.067 NT-Pro-B Natriuret Pep Impressions: Cervical Spine CT 11/10/18 22:06 IMPRESSION: No acute cervical spinal fracture is identified. Multilevel degenerative change Head CT 11/10/18 22:06 IMPRESSION: No acute intracranial abnormality is identified. Chest X-Ray 11/13/18 06:00 IMPRESSION: STABLE APPEARANCE OF THE CHEST. SUPPORT DEVICES UNCHANGED. Assessment and Plan - Diagnosis (1) Acute and chronic respiratory failure with hypercapnia Is this a current diagnosis for this admission?: Yes Plan: Mild improvement. Multifactorial. Complicated by acute EtOH intoxication/COPD exacerbation with oxygen dependence. Intubation day 3. Continue ventilatory support, DT protocol, ICU admission, daily ABG and chest x- ray. 11/13/2018: SBP 73142, T-max 100.4, pulse 60s, RR 2033, SPO2 9195 FiO2 40% ABG pH 7.41, PCO2 43.9, PO2 70.8, FiO2 40%, SIMV, VT 550, PEEP 5. 11/12/2018: SBP 58063, T-max 100.6, P 00000, RR 1732, SPO2 92% FiO2 50%. VT 550, RR 16, PEEP 5. ABG: pH 7.30, PCO2 59.6, PO2 85.2, FiO2 45%. (2) Acute alcohol intoxication with alcoholism Qualifiers: Complication of substance-induced condition: with delirium Qualified Code(s): F10.221 - Alcohol dependence with intoxication delirium Is this a current diagnosis for this admission?: No Plan: Serum alcohol 196 on admission. Patient still agitated even being on Precedex and midazolam. Switch to Ativan drip, PRN Haldol. Continue D5 NS, Ativan drip, folate, vitamin B12, thiamine supplement. Monitor for seizures. (3) Acute kidney injury superimposed on chronic kidney disease Is this a current diagnosis for this admission?: Yes Plan: Resovled. Likely prerenal. Creatinine 2.26 on admission. Baseline 0.8. 11/13/2018: WBC 19.7 up from 15.3, no bandemia, hemoglobin 12.1, platelet 222, sodium 137, potassium 4.1, bicarb 27, creatinine 1.03, FBG 138, POC glucose [id number], 11/12/2018: WBC 15.3, bands 0, hemoglobin 12.6, platelets 259, sodium 138.5, potassium 4.9, bicarb 29, creatinine 1.43 down from 2.26 on admission, baseline 0.8, Continue IV fluids, monitor volume status, monitor electrolytes, replace as needed. (4) Altered mental status Qualifiers: Altered mental status type: coma Coma depth: Manjula coma 3-8 Coma timing: in the field (EMT or ambulance) Qualified Code(s): R40.2431 - Dittmer coma scale score 3-8, in the field [EMT or ambulance] Is this a current diagnosis for this admission?: Yes Plan: As per #2. (5) HTN (hypertension) Qualifiers: Hypertension type: essential hypertension Qualified Code(s): I10 - Essential (primary) hypertension Is this a current diagnosis for this admission?: Yes Plan: Not optimized. Likely exacerbated by agitation. Continue Lasix, lisinopril. Adjust meds as needed. Hold BP meds if MAP less than 65. 11/13/2018: SBP 67953, T-max 100.4, pulse 60s, RR 2033, SPO2 9195 FiO2 40% 11/12/2018: SBP 49849, T-max 100.6, P 86468, RR 1732, SPO2 92% FiO2 50%. (6) Obesity (BMI 30-39.9) Is this a current diagnosis for this admission?: Yes Plan: Encourage diet and lifestyle modification. (7) Pneumonia Is this a current diagnosis for this admission?: No Plan: Likely aspiration. Leukocytosis and fever. Sputum and blood culture. Emperic IV antibiotics. Leukoytosis and fever. 11/12/2018: SBP 87587, T-max 100.6, P 54084, RR 1732, SPO2 92% FiO2 50%. VT 550, RR 16, PEEP 5. ABG: pH 7.30, PCO2 59.6, PO2 85.2, FiO2 45%. (8) UTI (urinary tract infection) Qualifiers: Urinary tract infection type: acute cystitis Is this a current diagnosis for this admission?: Yes Plan: Likely due to gram-negative rods including E. coli. Urine culture from 11/12/2018+ for gram-negative rods. Ceftriaxone IV day 2 Follow-up urine and blood culture.
[2018-11-13] MEDS: ACETAMINOPHEN 325 MG TABLET PO PRN (21:27)
[2018-11-13] MEDS: MONTELUKAST SODIUM 10 MG TABLET NG SCH (21:27)
[2018-11-14] MEDS: INSULIN LISPRO 100 UNIT/ML 3 ML VIAL SUBCUT SCH ×5 (00:19→21:45)
[2018-11-14] MEDS: DEXMEDETOMIDINE IN 0.9 % NACL 400 MCG/100 ML RTUPB IV PRN ×10 (00:21→23:43)
[2018-11-14] MEDS: LORAZEPAM 24 MG/240 ML BAG IV PRN ×4 (01:07→20:29)
[2018-11-14] MEDS: PIPERACILLIN SODIUM/TAZOBACTAM 3.375 GM in NORMAL SALINE 100 ML IV SCH ×3 (01:08→17:14)
[2018-11-14] MEDS: ACETAMINOPHEN 325 MG TABLET PO PRN ×2 (01:18→20:30)
[2018-11-14] MEDS: IPRATROPIUM/ALBUTEROL 0.5-2.5 MG/3 ML AMPUL NEB SCH ×4 (02:33→20:12)
[2018-11-14] MEDS: HALOPERIDOL LACTATE INJ 5 MG/1 ML VIAL IV PRN ×2 (03:31→14:21)
[2018-11-14 04:36] LABS: ARTERIAL BLOOD BASE EXCESS 2.6 mmol/L; ARTERIAL BLOOD FIO2 50%; ARTERIAL BLOOD H2CO3 1.09 mmol/L (1.05-1.35); ARTERIAL BLOOD HCO3 26.1 mmol/L (20-24); ARTERIAL BLOOD O2 SATURATION 93.8 % (94-98); ARTERIAL BLOOD PCO2 36.3 mmHg (35-45); ARTERIAL BLOOD PH 7.47 (7.35-7.45); ARTERIAL BLOOD PO2 63.8 mmHg (80-100); ARTERIAL BLOOD TOTAL CO2 27.2 mmol/L (23-27)
[2018-11-14 04:50] LABS: ABSOLUTE BASOPHILS # (AUTO) 0.1 10^3/uL (0.0-0.2); ABSOLUTE EOSINOPHILS # (AUTO) 0.2 10^3/uL (0.0-0.6); ABSOLUTE LYMPHOCYTES (AUTO) 2.2 10^3/uL (0.5-4.7); ABSOLUTE MONOCYTES (AUTO) 1.3 10^3/uL (0.1-1.4); ABSOLUTE NEUT (AUTO) 13.9 10^3/uL (1.7-8.2); BASOPHILS % (AUTO) 0.3 % (0-2); EOSINOPHILS % (AUTO) 1.2 % (0-6); HEMATOCRIT 35.8 % (37.9-51.0); HEMOGLOBIN 11.8 g/dL (13.5-17.0); LYMPHOCYTES % (AUTO) 12.4 % (13-45); MEAN CORPUSCULAR HEMOGLOBIN 31.4 pg (27.0-33.4); MEAN CORPUSCULAR VOLUME 95 fl (80-97); MONOCYTES % (AUTO) 7.2 % (3-13); PLATELET COUNT 212 10^3/uL (150-450); RED BLOOD COUNT 3.76 10^6/uL (4.35-5.55); RED CELL DISTRIBUTION WIDTH 14.2 % (11.5-14.0); SEGMENTED NEUTROPHILS % (AUTO) 78.9 % (42-78); TOTAL CELLS COUNTED % (AUTO) 100 %; WHITE BLOOD COUNT 17.7 10^3/uL (4.0-10.5)
[2018-11-14 05:10] LABS: ALANINE AMINOTRANSFERASE 13 U/L (21-72); ALBUMIN 2.4 g/dL (3.5-5.0); ALKALINE PHOSPHATASE 63 U/L (38-126); ANION GAP 9 (5-19); ASPARTATE AMINO TRANSFERASE 10 U/L (17-59); BILIRUBIN,DIRECT 0.2 mg/dL (0.0-0.4); BILIRUBIN,TOTAL 0.7 mg/dL (0.2-1.3); BLOOD UREA NITROGEN 13 mg/dL (7-20); CALCIUM 8.4 mg/dL (8.4-10.2); CARBON DIOXIDE 26 mmol/L (22-30); CHLORIDE 103 mmol/L (98-107); GLUCOSE 128 mg/dL (75-110); PHOSPHORUS 3.5 mg/dL (2.5-4.5); POTASSIUM 3.5 mmol/L (3.6-5.0); SODIUM 138.1 mmol/L (137-145)
[2018-11-14] MEDS: HEPARIN SOD (PORCINE) 5,000 UNIT/ML 1 ML SYRINGE SUBCUT SCH ×3 (05:22→21:40)
[2018-11-14] MEDS: BUDESONIDE NEB 0.5 MG/2 ML AMPUL NEB SCH ×2 (07:58→20:12)
[2018-11-14] MEDS: DEXTROSE 5%-NORMAL SALINE 1,000 ML IV PRN ×3 (08:00→20:29)
--- NOTE | 2018-11-14 08:43 | RADIOLOGY REPORT (SQ) ---
EXAM DESCRIPTION: CHEST SINGLE VIEW COMPLETED DATE/TIME: 11/14/2018 6:27 am REASON FOR STUDY: respiratory failure COMPARISON: 11/13/2018, 11/12/2018, 11/10/2018 EXAM PARAMETERS: NUMBER OF VIEWS: One view. TECHNIQUE: Single frontal radiographic view of the chest acquired. RADIATION DOSE: NA LIMITATIONS: None. FINDINGS: LUNGS AND PLEURA: Mild bibasilar atelectasis. No pleural effusion. No pneumothorax. MEDIASTINUM AND HILAR STRUCTURES: No masses. Contour normal. HEART AND VASCULAR STRUCTURES: Heart normal in size. Normal vasculature. BONES: No acute findings. HARDWARE: Endotracheal tube tip 5 cm above the ruddy. Nasogastric tube tip and side port in the sto mach. OTHER: No other significant finding. IMPRESSION: Endotracheal and nasogastric tubes in good positioning. Unchanged bibasilar bandlike consolidation likely atelectasis TECHNICAL DOCUMENTATION: JOB ID: [id number] [email or web address]- All Rights Reserved Reading location - IP/workstation name: [email or web address]
[2018-11-14] MEDS: TAMSULOSIN HCL 0.4 MG CAP.SR.24H PO SCH (09:19)
[2018-11-14] MEDS: FUROSEMIDE 40 MG TABLET PO SCH (10:49)
[2018-11-14] MEDS: DOCUSATE SODIUM 100 MG/10 ML UDC PO SCH ×2 (10:49→17:14)
[2018-11-14] MEDS: THIAMINE HCL 100 MG TABLET NG SCH (10:49)
[2018-11-14] MEDS: FAMOTIDINE 20 MG TABLET PO SCH ×2 (10:49→21:40)
[2018-11-14] MEDS: OLANZAPINE 5 MG TABLET PO SCH ×2 (10:49→21:40)
[2018-11-14] MEDS: FOLIC ACID/VITAMIN B COMP W-C CAPSULE NG SCH (10:55)
--- NOTE | 2018-11-14 11:51 | PDOC CONSULTATION ---
Consultation Consult Date: 11/13/18 Attending physician:: MAYA LIRA Provider Consulted: ARNOL JIMENEZ Consult reason:: resp failure/pna History of Present Illness Admission Date/PCP: 11/11/18 00:22 PASQUALE SANTANA MD History of Present Illness: KAMERON TRUJILLO is a 58 year old male, resents to the emergency room with altered mental status subsequently found to be obtunded hypoxemic with repeat potassium of 7.5 patient was subsequently intubated to protect his airway. Per spouse has had a excessive amounts of drinking in the recent past. He is currently in the ICU intubated and sedated. Past Medical History Cardiac Medical History: Reports: Hypertension Denies: Atrial Fibrillation, Congestive Heart Failure Pulmonary Medical History: Reports: Chronic Obstructive Pulmonary Disease (COPD), Intubation, Respiratory Failure Endocrine Medical History: Denies: Diabetes Mellitus Type 1, Diabetes Mellitus Type 2 Renal/ Medical History: Denies: Nephrolithiasis GI Medical History: Reports: Cirrhosis Musculoskeltal Medical History: Denies: Fibromyalgia Psychiatric Medical History: Reports: Alcohol Dependency, Depression, Tobacco Dependency Traumatic Medical History: Denies: Gunshot Wound, Stab Wound Hematology: Denies: Sickle Cell Disease Infectious Medical History: Denies: Clostridium Difficile Past Surgical History Past Surgical History: Reports: Other - Unknown Social History Information Source: [facility] Records Lives with: Spouse/Significant other Smoking Status: Current Every Day Smoker Cigarettes Packs Per Day: 1 Number of Years Smokin Last Time Smoked: 11/10/18 Frequency of Alcohol Use: Heavy Hx Recreational Drug Use: No Drugs: None Hx Prescription Drug Abuse: No - Advance Directive Resuscitation Status: Full Code Family History Family History: Hypertension Parental Family History Reviewed: No Children Family History Reviewed: No Sibling(s) Family History Reviewed.: No Medication/Allergy Home Medications: Albuterol Sulfate [Ventolin 0.083% Neb 2.5 mg/3 ml Ampul] 1 vial NEB TIDP PRN 11/11/18 Alprazolam [Alprazolam ER] 0.5 mg PO TID PRN 11/11/18 Bupropion HCl [Wellbutrin Xl 150 mg 24hr Tablet] 1 tab PO DAILY 11/11/18 Duloxetine HCl [Cymbalta] 60 mg PO DAILY 11/11/18 Furosemide [Lasix 40 mg Tablet] 40 mg PO DAILY 11/11/18 Lisinopril [Prinivil] 20 mg PO DAILY 11/11/18 Montelukast Sodium [Singulair 10 mg Tablet] 10 mg PO QHS 11/11/18 Potassium Chloride [K-Tab] 10 meq PO DAILY 11/11/18 Tamsulosin HCl [Flomax 0.4 mg Cap.sr] 0.4 mg PO DAILY 11/11/18 Varenicline Tartrate [Chantix 1 Mg Tablet] 1 mg PO BID 11/11/18 Allergies/Adverse Reactions: No Known Allergies Allergy (Verified 10/21/17 13:20) Review of Systems ROS unobtainable: Due to endotracheal tube Physical Exam Vital Signs: Temp Pulse Resp BP Pulse Ox 100.4 F 67 16 135/59 H 94 11/13/18 08:00 11/13/18 08:33 11/13/18 08:00 11/13/18 08:00 11/13/18 08:00 Intake & Output 11/12/18 11/13/18 11/14/18 06:59 06:59 06:59 Intake Total 2031 4783 100 Output Total 2480 2230 275 Balance -449 2553 -175 Weight 113.4 kg 116.8 kg General appearance: PRESENT: no acute distress, disheveled, morbidly obese. ABSENT: cooperative Head exam: PRESENT: atraumatic, normocephalic Eye exam: PRESENT: conjunctiva pale. ABSENT: nystagmus, periorbital swelling, scleral icterus Mouth exam: PRESENT: dry mucosa, neck supple, tongue midline, other - Endotracheal tube Neck exam: ABSENT: carotid bruit, full ROM, JVD, lymphadenopathy, meningismus, tenderness, thyromegaly, tracheal deviation, tracheostomy, other Respiratory exam: PRESENT: decreased breath sounds, prolonged expiratory phas, rales, rhonchi, wheezes. ABSENT: retraction, stridor, tachypnea Cardiovascular exam: PRESENT: RRR, +S1, +S2 Pulses: PRESENT: normal radial pulses GI/Abdominal exam: PRESENT: hypoactive bowel sounds, soft Gentrourinary exam: PRESENT: indwelling catheter Extremities exam: ABSENT: calf tenderness, clubbing, full ROM, joint swelling Musculoskeletal exam: ABSENT: ambulatory, deformity, dislocation Neurological exam: ABSENT: awake Skin exam: PRESENT: dry, warm Results Laboratory Results: 11/13/18 03:47 11/13/18 03:47 11/12/18 11/13/18 11/13/18 08:30 03:47 03:47 WBC 19.7 H RBC 3.80 L Hgb 12.1 L Hct 36.4 L MCV 96 MCH 31.7 MCHC 33.2 RDW 14.4 H Plt Count 222 Seg Neutrophils % 78.6 H Lymphocytes % 12.9 L Monocytes % 7.5 Eosinophils % 0.7 Basophils % 0.3 Absolute Neutrophils 15.5 H Absolute Lymphocytes 2.5 Absolute Monocytes 1.5 H Absolute Eosinophils 0.1 Absolute Basophils 0.1 Carbonic Acid HCO3/H2CO3 Ratio ABG pH ABG pCO2 ABG pO2 ABG HCO3 ABG O2 Saturation ABG Base Excess FiO2 Sodium 137.4 Potassium 4.1 Chloride 103 Carbon Dioxide 27 Anion Gap 7 BUN 19 Creatinine 1.03 Est GFR ( Amer) > 60 Est GFR (Non-Af Amer) > 60 Glucose 138 H Calcium 8.5 Magnesium 1.7 Total Bilirubin 0.6 AST 13 L ALT 20 L Alkaline Phosphatase 66 Total Protein 5.3 L Albumin 2.6 L Urine Color YELLOW Urine Appearance TURBID Urine pH 5.0 Ur Specific [place] 1.020 Urine Protein 30 H Urine Glucose (UA) NEGATIVE Urine Ketones NEGATIVE Urine Blood MODERATE H Urine Nitrite NEGATIVE Ur Leukocyte Esterase LARGE H Urine WBC (Auto) >182 Urine RBC (Auto) 128 11/13/18 05:33 WBC RBC Hgb Hct MCV MCH MCHC RDW Plt Count Seg Neutrophils % Lymphocytes % Monocytes % Eosinophils % Basophils % Absolute Neutrophils Absolute Lymphocytes Absolute Monocytes Absolute Eosinophils Absolute Basophils Carbonic Acid 1.32 HCO3/H2CO3 Ratio 20:1 ABG pH 7.41 ABG pCO2 43.9 ABG pO2 70.8 L ABG HCO3 27.1 H ABG O2 Saturation 94.3 ABG Base Excess 2.1 FiO2 40% Sodium Potassium Chloride Carbon Dioxide Anion Gap BUN Creatinine Est GFR ( Amer) Est GFR (Non-Af Amer) Glucose Calcium Magnesium Total Bilirubin AST ALT Alkaline Phosphatase Total Protein Albumin Urine Color Urine Appearance Urine pH Ur Specific [place] Urine Protein Urine Glucose (UA) Urine Ketones Urine Blood Urine Nitrite Ur Leukocyte Esterase Urine WBC (Auto) Urine RBC (Auto) 11/10/18 11/10/18 11/10/18 23:20 23:20 23:20 Creatine Kinase 118 CK-MB (CK-2) 4.39 Troponin I 0.078 NT-Pro-B Natriuret Pep 426 11/11/18 11/11/18 11/11/18 05:00 05:00 11:12 Creatine Kinase 109 103 CK-MB (CK-2) 3.94 Troponin I 0.097 NT-Pro-B Natriuret Pep 11/11/18 11:12 Creatine Kinase CK-MB (CK-2) 3.86 Troponin I 0.067 NT-Pro-B Natriuret Pep Impressions: Cervical Spine CT 11/10/18 22:06 IMPRESSION: No acute cervical spinal fracture is identified. Multilevel degenerative change Head CT 11/10/18 22:06 IMPRESSION: No acute intracranial abnormality is identified. Chest X-Ray 11/13/18 06:00 IMPRESSION: STABLE APPEARANCE OF THE CHEST. SUPPORT DEVICES UNCHANGED. Assessment & Plan - Diagnosis (1) Acute alcohol intoxication with alcoholism Qualifiers: Complication of substance-induced condition: with delirium Qualified Code(s): F10.221 - Alcohol dependence with intoxication delirium Is this a current diagnosis for this admission?: Yes Plan: Suspect patient will into DTs is it is less than 48 hours since his last alcoholic consumption (2) Acute and chronic respiratory failure with hypercapnia Is this a current diagnosis for this admission?: Yes Plan: Oxygenate and ventilate as needed (3) Altered mental status Qualifiers: Altered mental status type: coma Coma depth: Manjula coma 3-8 Coma timing: in the field (EMT or ambulance) Qualified Code(s): R40.2431 - Manjula coma scale score 3-8, in the field [EMT or ambulance] Is this a current diagnosis for this admission?: Yes Plan: Multiple etiologies including EtOH and hypoxia (4) Obesity (BMI 30-39.9) Is this a current diagnosis for this admission?: Yes Plan: Consider nutritional consult (5) COPD (chronic obstructive pulmonary disease) Qualifiers: Emphysema type: unspecified Is this a current diagnosis for this admission?: Yes Plan: Lower lumbar combination would not add a inhaled corticosteroids at this time - Time Total Critical Time (Minutes): 55
--- NOTE | 2018-11-14 11:54 | PDOC PROGRESS REPORT ---
Subjective Progress Note for:: 11/14/18 Subjective:: Intubated and sedated failed sedation vacation Reason For Visit: ACUTE RESP FAILURE, CKD, ETOH INTOX Physical Exam Vital Signs: Temp Pulse Resp BP Pulse Ox 99.5 F 62 20 120/85 97 11/14/18 08:00 11/14/18 08:00 11/14/18 08:00 11/14/18 08:00 11/14/18 08:00 Intake & Output 11/13/18 11/14/18 11/15/18 06:59 06:59 06:59 Intake Total 4783 4362 1100 Output Total 2230 4452 400 Balance 2553 -63 700 Weight 116.8 kg 117 kg General appearance: PRESENT: no acute distress, disheveled, morbidly obese. ABSENT: cooperative Head exam: PRESENT: atraumatic, normocephalic Eye exam: PRESENT: conjunctiva pale. ABSENT: nystagmus, scleral icterus Mouth exam: PRESENT: dry mucosa, neck supple, tongue midline, other - endoTracheal tube Neck exam: ABSENT: carotid bruit, full ROM, JVD, lymphadenopathy, meningismus, tenderness, thyromegaly, tracheal deviation, tracheostomy, other Respiratory exam: PRESENT: decreased breath sounds, prolonged expiratory phas, rales, rhonchi, unlabored. ABSENT: retraction, stridor, tachypnea Cardiovascular exam: PRESENT: irregular rhythm Pulses: PRESENT: normal radial pulses GI/Abdominal exam: PRESENT: hypoactive bowel sounds, soft Gentrourinary exam: PRESENT: indwelling catheter Extremities exam: ABSENT: calf tenderness, clubbing, joint swelling Musculoskeletal exam: ABSENT: ambulatory, deformity, dislocation Neurological exam: ABSENT: awake Skin exam: PRESENT: dry, warm Results Laboratory Results: 11/14/18 04:08 11/14/18 04:08 11/14/18 11/14/18 11/14/18 04:08 04:08 04:15 WBC 17.7 H RBC 3.76 L Hgb 11.8 L Hct 35.8 L MCV 95 MCH 31.4 MCHC 33.0 RDW 14.2 H Plt Count 212 Seg Neutrophils % 78.9 H Lymphocytes % 12.4 L Monocytes % 7.2 Eosinophils % 1.2 Basophils % 0.3 Absolute Neutrophils 13.9 H Absolute Lymphocytes 2.2 Absolute Monocytes 1.3 Absolute Eosinophils 0.2 Absolute Basophils 0.1 Carbonic Acid 1.09 HCO3/H2CO3 Ratio 23:1 ABG pH 7.47 H ABG pCO2 36.3 ABG pO2 63.8 L ABG HCO3 26.1 H ABG O2 Saturation 93.8 L ABG Base Excess 2.6 FiO2 50% Sodium 138.1 Potassium 3.5 L Chloride 103 Carbon Dioxide 26 Anion Gap 9 BUN 13 Creatinine 1.11 Est GFR ( Amer) > 60 Est GFR (Non-Af Amer) > 60 Glucose 128 H Calcium 8.4 Phosphorus 3.5 Magnesium 1.5 L Total Bilirubin 0.7 AST 10 L ALT 13 L Alkaline Phosphatase 63 Total Protein 5.0 L Albumin 2.4 L 11/12/18 08:30 Urethra Gram Stain - Final 11/12/18 08:30 Catheterized Urine Urine Culture - Final Escherichia Coli 11/10/18 11/10/18 11/10/18 23:20 23:20 23:20 Creatine Kinase 118 CK-MB (CK-2) 4.39 Troponin I 0.078 NT-Pro-B Natriuret Pep 426 11/11/18 11/11/18 11/11/18 05:00 05:00 11:12 Creatine Kinase 109 103 CK-MB (CK-2) 3.94 Troponin I 0.097 NT-Pro-B Natriuret Pep 11/11/18 11/14/18 11:12 04:08 Creatine Kinase CK-MB (CK-2) 3.86 Troponin I 0.067 NT-Pro-B Natriuret Pep 200 Impressions: Cervical Spine CT 11/10/18 22:06 IMPRESSION: No acute cervical spinal fracture is identified. Multilevel degenerative change Head CT 11/10/18 22:06 IMPRESSION: No acute intracranial abnormality is identified. Chest X-Ray 11/14/18 06:00 IMPRESSION: Endotracheal and nasogastric tubes in good positioning. Unchanged bibasilar bandlike consolidation likely atelectasis Assessment & Plan - Diagnosis (1) Acute alcohol intoxication with alcoholism Qualifiers: Complication of substance-induced condition: with delirium Qualified Code(s): F10.221 - Alcohol dependence with intoxication delirium Is this a current diagnosis for this admission?: Yes Plan: Suspect patient will into DTs is it is less than 60 hours since his last alcoholic consumption (2) Acute and chronic respiratory failure with hypercapnia Is this a current diagnosis for this admission?: Yes Plan: Oxygenate and ventilate as needed (3) Obesity (BMI 30-39.9) Is this a current diagnosis for this admission?: Yes Plan: Consider nutritional consult (4) COPD (chronic obstructive pulmonary disease) Qualifiers: Emphysema type: unspecified Is this a current diagnosis for this admission?: Yes Plan: Lower lumbar combination would not add a inhaled corticosteroids at this time - Time Total Critical Time (Minutes): 40
[2018-11-14] MEDS: BUPROPION HCL 75 MG TABLET NG SCH ×2 (12:35→21:40)
--- NOTE | 2018-11-14 14:18 | PDOC PROGRESS REPORT ---
Subjective Progress Note for:: 11/14/18 Subjective:: KAMERON TRUJILLO is a 58 year old male with a past medical history of alcohol abuse, hypertension, hepatic cirrhosis, chronic kidney disease, and COPD with oxygen dependence. Patient presents to the emergency department via EMS with altered mental status and subsequently history is obtained by the record. He is intubated by emergency department provider for a GCS of 3 with hypoxia and unprotected airway. Patient was noted by his at approximately 7:30 PM com plaining of feeling tired and found approximately 15 minutes later unresponsive. Patient's believed he had been drinking excessively. ABG reveals hypoxic and hypercapnic respiratory failure, chemistry reveals a potassium 7.5 without peak T waves, creatinine of 2.2, serum alcohol is 196. Family is unavailable for interview. 11/12/2018. Overnight patient became hypotensive, likely due to propofol. Propofol was DC'd and patient was started on Precedex and midazolam him a briefly placed on levofed. Extremely agitated and riding the vent even being on Precedex and midazolam. Midazolam was switched with Ativan, and as needed Haldol with good results. SBP 67180, T-max 100.6, pulse 67222, RR 1732, SPO2 92% 5-50 per echo ventilation. VT 550, rate set 16, PEEP 5. ABG: pH 7.30, PCO2 59.6, PO2 85.2, FiO2 45%. WBC 15.3, bands 0, hemoglobin 12.6, platelets 259, sodium 138.5, potassium 4.9, bicarb 29, creatinine 1.43 down from 2.26 on admission, baseline 0.8, 11/13/2018. No acute events overnight, patient has been less agitated than yesterday, in the morning he got agitated again, still sedated on propofol and Ativan drip with as needed Haldol. SBP 55031, T-max 100.4, pulse 60s, RR 2033, SPO2 9195 FiO2 40%, ABG pH 7.41, PCO2 43.9, PO2 70.8, FiO2 40%, SIMV, VT 550, PEEP 5. WBC 19.7 up from 15.3, no bandemia, hemoglobin 12.1, platelet 222, sodium 137, potassium 4.1, bicarb 27, creatinine 1.03, FBG 138, POC glucose [id number], 11/14/2018. No acute events overnight. Patient is still dependent on mechanical ventilation. Failed weaning. SBP 146489, pulse 60s, RR 20 MV, SPO2 97 to 50% MV. SIMV, RS 20, VT 550, PEEP 5. PCO2 36.3, PO2 63.8, FiO2 50%. WBC 17.7, Hgb 11.8, platelets 212, sodium 138.1, potassium 3.5, bicarb 26, creatinine 1.1, FBG 128, POC glucose [id number]. Reason For Visit: ACUTE RESP FAILURE, CKD, ETOH INTOX Physical Exam Vital Signs: Temp Pulse Resp BP Pulse Ox 99.5 F 63 20 130/91 H 97 11/14/18 12:00 11/14/18 13:50 11/14/18 13:50 11/14/18 12:00 11/14/18 13:50 Intake & Output 11/13/18 11/14/18 11/15/18 06:59 06:59 06:59 Intake Total 4783 4362 1300 Output Total 2230 4425 1120 Balance 2553 -63 180 Weight 116.8 kg 117 kg General appearance: PRESENT: obese, other - Intubated, sedated. Neck exam: ABSENT: carotid bruit, JVD, lymphadenopathy, thyromegaly Respiratory exam: PRESENT: clear to auscultation abi, decreased breath sounds. ABSENT: rales, rhonchi, wheezes Cardiovascular exam: PRESENT: RRR. ABSENT: diastolic murmur, rubs, systolic murmur GI/Abdominal exam: PRESENT: normal bowel sounds, soft. ABSENT: distended, guarding, mass, organolmegaly, rebound, tenderness Extremities exam: PRESENT: full ROM. ABSENT: calf tenderness, clubbing, pedal edema Neurological exam: PRESENT: other - Intubated, sedated. Results Laboratory Results: 11/14/18 04:08 11/14/18 04:08 11/14/18 11/14/18 11/14/18 04:08 04:08 04:15 WBC 17.7 H RBC 3.76 L Hgb 11.8 L Hct 35.8 L MCV 95 MCH 31.4 MCHC 33.0 RDW 14.2 H Plt Count 212 Seg Neutrophils % 78.9 H Lymphocytes % 12.4 L Monocytes % 7.2 Eosinophils % 1.2 Basophils % 0.3 Absolute Neutrophils 13.9 H Absolute Lymphocytes 2.2 Absolute Monocytes 1.3 Absolute Eosinophils 0.2 Absolute Basophils 0.1 Carbonic Acid 1.09 HCO3/H2CO3 Ratio 23:1 ABG pH 7.47 H ABG pCO2 36.3 ABG pO2 63.8 L ABG HCO3 26.1 H ABG O2 Saturation 93.8 L ABG Base Excess 2.6 FiO2 50% Sodium 138.1 Potassium 3.5 L Chloride 103 Carbon Dioxide 26 Anion Gap 9 BUN 13 Creatinine 1.11 Est GFR ( Amer) > 60 Est GFR (Non-Af Amer) > 60 Glucose 128 H Calcium 8.4 Phosphorus 3.5 Magnesium 1.5 L Total Bilirubin 0.7 AST 10 L ALT 13 L Alkaline Phosphatase 63 Total Protein 5.0 L Albumin 2.4 L 11/12/18 08:30 Urethra Gram Stain - Final 11/12/18 08:30 Catheterized Urine Urine Culture - Final Escherichia Coli 11/10/18 11/10/18 11/10/18 23:20 23:20 23:20 Creatine Kinase 118 CK-MB (CK-2) 4.39 Troponin I 0.078 NT-Pro-B Natriuret Pep 426 11/11/18 11/11/18 11/11/18 05:00 05:00 11:12 Creatine Kinase 109 103 CK-MB (CK-2) 3.94 Troponin I 0.097 NT-Pro-B Natriuret Pep 11/11/18 11/14/18 11:12 04:08 Creatine Kinase CK-MB (CK-2) 3.86 Troponin I 0.067 NT-Pro-B Natriuret Pep 200 Impressions: Cervical Spine CT 11/10/18 22:06 IMPRESSION: No acute cervical spinal fracture is identified. Multilevel degenerative change Head CT 11/10/18 22:06 IMPRESSION: No acute intracranial abnormality is identified. Chest X-Ray 11/14/18 06:00 IMPRESSION: Endotracheal and nasogastric tubes in good positioning. Unchanged bibasilar bandlike consolidation likely atelectasis Assessment and Plan - Diagnosis (1) Acute and chronic respiratory failure with hypercapnia Is this a current diagnosis for this admission?: Yes Plan: No Significant changes. Multifactorial. Complicated by acute EtOH intoxication/COPD exacerbation with oxygen dependence. Intubation day 4. Continue ventilatory support, DT protocol, ICU admission, daily ABG and chest x- ray. 11/14/2018: SBP 080792, pulse 60s, RR 20 MV, SPO2 97 to 50% MV. SIMV, RS 20, VT 550, PEEP 5. ABG pH 7.47, PCO2 36.3, PO2 63.8, FiO2 50%. 11/13/2018: SBP 38028, T-max 100.4, pulse 60s, RR 2033, SPO2 9195 FiO2 40% ABG pH 7.41, PCO2 43.9, PO2 70.8, FiO2 40%, SIMV, VT 550, PEEP 5. 11/12/2018: SBP 62314, T-max 100.6, P 17724, RR 1732, SPO2 92% FiO2 50%. VT 550, RR 16, PEEP 5. ABG: pH 7.30, PCO2 59.6, PO2 85.2, FiO2 45%. (2) Acute alcohol intoxication with alcoholism Qualifiers: Complication of substance-induced condition: with delirium Qualified Code(s): F10.221 - Alcohol dependence with intoxication delirium Is this a current diagnosis for this admission?: Yes Plan: Serum alcohol 196 on admission. Agitation controlled witch ativan drip, PRN Haldol, Zyprexa Continue D5 NS, Ativan drip, folate, vitamin B12, thiamine supplement. Monitor for seizures. (3) Acute kidney injury superimposed on chronic kidney disease Is this a current diagnosis for this admission?: Yes Plan: Resovled. Likely prerenal. Creatinine 2.26 on admission. Baseline 0.8. 11/14/2018: WBC 17.7, Hgb 11.8, platelets 212, sodium 138.1, potassium 3.5, bicarb 26, creatinine 1.1, FBG 128, POC glucose 279189. 11/13/2018: WBC 19.7 up from 15.3, no bandemia, hemoglobin 12.1, platelet 222, sodium 137, potassium 4.1, bicarb 27, creatinine 1.03, FBG 138, POC glucose 057590, 11/12/2018: WBC 15.3, bands 0, hemoglobin 12.6, platelets 259, sodium 138.5, potassium 4.9, bicarb 29, creatinine 1.43 down from 2.26 on admission, baseline 0.8, Continue IV fluids, monitor volume status, monitor electrolytes, replace as needed. (4) Altered mental status Qualifiers: Altered mental status type: coma Coma depth: [place] coma 3-8 Coma timing: in the field (EMT or ambulance) Qualified Code(s): R40.2431 - [place] coma scale score 3-8, in the field [EMT or ambulance] Is this a current diagnosis for this admission?: Yes Plan: As per #2. (5) HTN (hypertension) Qualifiers: Hypertension type: essential hypertension Qualified Code(s): I10 - Essential (primary) hypertension Is this a current diagnosis for this admission?: Yes Plan: Controlled. Likely exacerbated by agitation. Continue Lasix, lisinopril. Adjust meds as needed. Hold BP meds if MAP less than 65. 11/14/2018: SBP 537756, pulse 60s, RR 20 MV, SPO2 97 to 50% MV. 11/13/2018: SBP 67544, T-max 100.4, pulse 60s, RR 2033, SPO2 9195 FiO2 40% 11/12/2018: SBP 92127, T-max 100.6, P 71404, RR 1732, SPO2 92% FiO2 50%. (6) Obesity (BMI 30-39.9) Is this a current diagnosis for this admission?: Yes Plan: Encourage diet and lifestyle modification. (7) Pneumonia Is this a current diagnosis for this admission?: No Plan: Improving. Aspiration versus community acquired pneumonia. Blood cultures negative. 11/13/2018. Tracheal aspirate gram-negative rods. 11/12/2018. Urine culture positive for E. coli pansensitive. Leukocytosis and fever improving Ceftriaxone day 3. (8) UTI (urinary tract infection) Qualifiers: Urinary tract infection type: acute cystitis Is this a current diagnosis for this admission?: Yes Plan: Due to gram-negative rods E. coli pansensitive. 11/13/2018. Tracheal aspirate gram-negative rods. 11/12/2018 urine culture positive for E. coli pansensitive. Ceftriaxone IV day 3
[2018-11-14] MEDS: FENTANYL CITRATE INJ/PF 100 MCG/2 ML AMPUL IV PRN (14:20)
[2018-11-14] MEDS: MONTELUKAST SODIUM 10 MG TABLET NG SCH (21:40)
[2018-11-15] MEDS: PIPERACILLIN SODIUM/TAZOBACTAM 3.375 GM in NORMAL SALINE 100 ML IV SCH ×3 (00:59→17:29)
[2018-11-15] MEDS: IPRATROPIUM/ALBUTEROL 0.5-2.5 MG/3 ML AMPUL NEB SCH ×4 (02:01→20:09)
[2018-11-15] MEDS ORDERED: METOCLOPRAMIDE HCL INJ/PF 10 MG/2 ML SDV IV ONE (02:15)
[2018-11-15] MEDS: DEXMEDETOMIDINE IN 0.9 % NACL 400 MCG/100 ML RTUPB IV PRN ×8 (02:26→22:45)
[2018-11-15] MEDS: LORAZEPAM 24 MG/240 ML BAG IV PRN ×3 (02:27→19:46)
[2018-11-15] MEDS: FENTANYL CITRATE INJ/PF 100 MCG/2 ML AMPUL IV PRN ×3 (02:44→14:54)
[2018-11-15 04:24] LABS: ABSOLUTE BASOPHILS # (AUTO) 0.1 10^3/uL (0.0-0.2); ABSOLUTE EOSINOPHILS # (AUTO) 0.3 10^3/uL (0.0-0.6); ABSOLUTE LYMPHOCYTES (AUTO) 1.8 10^3/uL (0.5-4.7); ABSOLUTE MONOCYTES (AUTO) 1.6 10^3/uL (0.1-1.4); ABSOLUTE NEUT (AUTO) 11.4 10^3/uL (1.7-8.2); BASOPHILS % (AUTO) 0.5 % (0-2); EOSINOPHILS % (AUTO) 1.8 % (0-6); HEMATOCRIT 35.2 % (37.9-51.0); LYMPHOCYTES % (AUTO) 11.9 % (13-45); MEAN CORPUSCULAR HEMOGLOBIN 32.1 pg (27.0-33.4); MEAN CORPUSCULAR VOLUME 94 fl (80-97); MONOCYTES % (AUTO) 10.5 % (3-13); PLATELET COUNT 235 10^3/uL (150-450); RED BLOOD COUNT 3.73 10^6/uL (4.35-5.55); RED CELL DISTRIBUTION WIDTH 13.8 % (11.5-14.0); SEGMENTED NEUTROPHILS % (AUTO) 75.3 % (42-78); TOTAL CELLS COUNTED % (AUTO) 100 %; WHITE BLOOD COUNT 15.1 10^3/uL (4.0-10.5)
[2018-11-15 04:32] LABS: ARTERIAL BLOOD BASE EXCESS 2.1 mmol/L; ARTERIAL BLOOD H2CO3 1.27 mmol/L (1.05-1.35); ARTERIAL BLOOD HCO3 26.8 mmol/L (20-24); ARTERIAL BLOOD O2 SATURATION 93.2 % (94-98); ARTERIAL BLOOD PCO2 42.1 mmHg (35-45); ARTERIAL BLOOD PH 7.42 (7.35-7.45); ARTERIAL BLOOD PO2 65.3 mmHg (80-100); ARTERIAL BLOOD TOTAL CO2 28.1 mmol/L (23-27)
[2018-11-15 04:34] LABS: ARTERIAL BLOOD FIO2 50%
[2018-11-15 04:47] LABS: ALANINE AMINOTRANSFERASE 18 U/L (21-72); ALBUMIN 2.3 g/dL (3.5-5.0); ALKALINE PHOSPHATASE 69 U/L (38-126); ANION GAP 9 (5-19); ASPARTATE AMINO TRANSFERASE 12 U/L (17-59); BILIRUBIN,DIRECT 0.3 mg/dL (0.0-0.4); BILIRUBIN,TOTAL 0.7 mg/dL (0.2-1.3); BLOOD UREA NITROGEN 10 mg/dL (7-20); CALCIUM 8.3 mg/dL (8.4-10.2); CARBON DIOXIDE 26 mmol/L (22-30); CHLORIDE 105 mmol/L (98-107); GLUCOSE 103 mg/dL (75-110); POTASSIUM 3.4 mmol/L (3.6-5.0); SODIUM 139.5 mmol/L (137-145); TOTAL PROTEIN 4.9 g/dL (6.3-8.2)
[2018-11-15] MEDS: METOCLOPRAMIDE HCL INJ/PF 10 MG/2 ML SDV IV SCH ×3 (05:00→17:29)
[2018-11-15] MEDS: HEPARIN SOD (PORCINE) 5,000 UNIT/ML 1 ML SYRINGE SUBCUT SCH ×2 (05:00→13:48)
[2018-11-15] MEDS: DEXTROSE 5%-NORMAL SALINE 1,000 ML IV PRN ×2 (05:17→16:21)
[2018-11-15] MEDS: POTASSIUM CHLORIDE 20 MEQ/50 ML RTU IV SCH ×2 (05:27→10:41)
[2018-11-15] MEDS: HALOPERIDOL LACTATE INJ 5 MG/1 ML VIAL IV PRN ×2 (07:53→14:55)
[2018-11-15] MEDS: BUDESONIDE NEB 0.5 MG/2 ML AMPUL NEB SCH ×2 (07:56→20:09)
[2018-11-15] MEDS: INSULIN LISPRO 100 UNIT/ML 3 ML VIAL SUBCUT SCH ×3 (08:12→17:13)
--- NOTE | 2018-11-15 08:44 | RADIOLOGY REPORT (SQ) ---
EXAM DESCRIPTION: CHEST SINGLE VIEW COMPLETED DATE/TIME: 11/15/2018 6:41 am REASON FOR STUDY: resp failure COMPARISON: 11/14/2018. EXAM PARAMETERS: NUMBER OF VIEWS: One view. TECHNIQUE: Single frontal radiographic view of the chest acquired. RADIATION DOSE: NA LIMITATIONS: None. FINDINGS: LUNGS AND PLEURA: Low lung volumes. Patchy basilar airspace disease. MEDIASTINUM AND HILAR STRUCTURES: No masses. Contour normal. HEART AND VASCULAR STRUCTURES: Heart normal in size. Normal vasculature. BONES: No acute findings. HARDWARE: Stable endotracheal tube and nasogastric tube. OTHER: No other significant finding. IMPRESSION: NO SIGNIFICANT CHANGE IN APPEARANCE OF THE CHEST. TECHNICAL DOCUMENTATION: JOB ID: [id number] [employer]- All Rights Reserved Reading location - IP/workstation name: [email or web address]
[2018-11-15] MEDS: FOLIC ACID/VITAMIN B COMP W-C CAPSULE NG SCH (09:32)
[2018-11-15] MEDS: TAMSULOSIN HCL 0.4 MG CAP.SR.24H PO SCH (09:32)
[2018-11-15] MEDS: FAMOTIDINE 20 MG TABLET PO SCH (10:40)
[2018-11-15] MEDS: OLANZAPINE 5 MG TABLET PO SCH (10:40)
[2018-11-15] MEDS: FUROSEMIDE 40 MG TABLET PO SCH (10:40)
[2018-11-15] MEDS: THIAMINE HCL 100 MG TABLET NG SCH (10:40)
[2018-11-15] MEDS: DOCUSATE SODIUM 100 MG/10 ML UDC PO SCH ×2 (10:40→17:29)
[2018-11-15] MEDS: AMINO AC/PROTEIN HYDR/WHEY PRO 11 GM/45 ML PKT NG SCH ×3 (10:45→17:33)
[2018-11-15] MEDS: BUPROPION HCL 75 MG TABLET NG SCH (10:45)
--- NOTE | 2018-11-15 12:44 | PDOC PROGRESS REPORT ---
Subjective Progress Note for:: 11/15/18 Subjective:: KAMERON TRUJILLO is a 58 year old male with a past medical history of alcohol abuse, hypertension, hepatic cirrhosis, chronic kidney disease, and COPD with oxygen dependence. Patient presents to the emergency department via EMS with altered mental status and subsequently history is obtained by the record. He is intubated by emergency department provider for a GCS of 3 with hypoxia and unprotected airway. Patient was noted by his at approximately 7:30 PM com plaining of feeling tired and found approximately 15 minutes later unresponsive. Patient's believed he had been drinking excessively. ABG reveals hypoxic and hypercapnic respiratory failure, chemistry reveals a potassium 7.5 without peak T waves, creatinine of 2.2, serum alcohol is 196. Family is unavailable for interview. 11/12/2018. Overnight patient became hypotensive, likely due to propofol. Propofol was DC'd and patient was started on Precedex and midazolam him a briefly placed on levofed. Extremely agitated and riding the vent even being on Precedex and midazolam. Midazolam was switched with Ativan, and as needed Haldol with good results. SBP 94256, T-max 100.6, pulse 25579, RR 1732, SPO2 92% 5-50 per echo ventilation. VT 550, rate set 16, PEEP 5. ABG: pH 7.30, PCO2 59.6, PO2 85.2, FiO2 45%. WBC 15.3, bands 0, hemoglobin 12.6, platelets 259, sodium 138.5, potassium 4.9, bicarb 29, creatinine 1.43 down from 2.26 on admission, baseline 0.8, 11/13/2018. No acute events overnight, patient has been less agitated than yesterday, in the morning he got agitated again, still sedated on propofol and Ativan drip with as needed Haldol. SBP 48876, T-max 100.4, pulse 60s, RR 2033, SPO2 9195 FiO2 40%, ABG pH 7.41, PCO2 43.9, PO2 70.8, FiO2 40%, SIMV, VT 550, PEEP 5. WBC 19.7 up from 15.3, no bandemia, hemoglobin 12.1, platelet 222, sodium 137, potassium 4.1, bicarb 27, creatinine 1.03, FBG 138, POC glucose 639150, 11/14/2018. No acute events overnight. Patient is still dependent on mechanical ventilation. Failed weaning. SBP 159730, pulse 60s, RR 20 MV, SPO2 97 to 50% MV. SIMV, RS 20, VT 550, PEEP 5. PCO2 36.3, PO2 63.8, FiO2 50%. WBC 17.7, Hgb 11.8, platelets 212, sodium 138.1, potassium 3.5, bicarb 26, creatinine 1.1, FBG 128, POC glucose 891380. 11/15/2018: No acute events overnight. Patient is still dependent on mechanical ventilation. Failed weaning. SBP 31645, T-max 100.0, pulse 60s, RR 20 MV, SPO2 97% FiO2 50%. SIMV, RS 20, VT 550, PEEP 5. Fluid balance + ABG: pH 7.42, PCO2 42.1, PO2 65.3, FiO2 50%. 561, WBC 15.1, hemoglobin 12.0, platelets 235, sodium 139, potassium 3.4, bicarb 26, Head Of Commission Department 0.9 Reason For Visit: ACUTE RESP FAILURE, CKD, ETOH INTOX Physical Exam Vital Signs: Temp Pulse Resp BP Pulse Ox 100.0 F 60 20 106/68 97 11/15/18 10:00 11/15/18 10:00 11/15/18 10:37 11/15/18 10:37 11/15/18 12:00 Intake & Output 11/14/18 11/15/18 11/16/18 06:59 06:59 06:59 Intake Total 4362 5156 435 Output Total 4425 4595 305 Balance -63 561 130 Weight 117 kg 114.7 kg General appearance: PRESENT: no acute distress, obese Head exam: PRESENT: atraumatic, normocephalic Respiratory exam: PRESENT: clear to auscultation abi. ABSENT: rales, rhonchi, wheezes Cardiovascular exam: PRESENT: RRR. ABSENT: diastolic murmur, rubs, systolic murmur GI/Abdominal exam: PRESENT: normal bowel sounds, soft. ABSENT: distended, guarding, mass, organolmegaly, rebound, tenderness Extremities exam: PRESENT: full ROM. ABSENT: calf tenderness, clubbing, pedal e mohit Neurological exam: PRESENT: other - sedated and intubated Results Laboratory Results: 11/15/18 03:38 11/15/18 03:38 11/15/18 11/15/18 11/15/18 03:38 03:38 04:15 WBC 15.1 H RBC 3.73 L Hgb 12.0 L Hct 35.2 L MCV 94 MCH 32.1 MCHC 34.0 RDW 13.8 Plt Count 235 Seg Neutrophils % 75.3 Lymphocytes % 11.9 L Monocytes % 10.5 Eosinophils % 1.8 Basophils % 0.5 Absolute Neutrophils 11.4 H Absolute Lymphocytes 1.8 Absolute Monocytes 1.6 H Absolute Eosinophils 0.3 Absolute Basophils 0.1 Carbonic Acid 1.27 HCO3/H2CO3 Ratio 21:1 ABG pH 7.42 ABG pCO2 42.1 ABG pO2 65.3 L ABG HCO3 26.8 H ABG O2 Saturation 93.2 L ABG Base Excess 2.1 FiO2 50% Sodium 139.5 Potassium 3.4 L Chloride 105 Carbon Dioxide 26 Anion Gap 9 BUN 10 Creatinine 0.99 Est GFR ( Amer) > 60 Est GFR (Non-Af Amer) > 60 Glucose 103 Calcium 8.3 L Magnesium 1.5 L Total Bilirubin 0.7 AST 12 L ALT 18 L Alkaline Phosphatase 69 Total Protein 4.9 L Albumin 2.3 L 11/12/18 08:30 Urethra Gram Stain - Final 11/12/18 08:30 Urethra Urethral Culture - Final Escherichia Coli Enterococcus Faecalis(Group D) Proteus Mirabilis Skin Laine 11/10/18 11/10/18 11/10/18 23:20 23:20 23:20 Creatine Kinase 118 CK-MB (CK-2) 4.39 Troponin I 0.078 NT-Pro-B Natriuret Pep 426 11/11/18 11/11/18 11/11/18 05:00 05:00 11:12 Creatine Kinase 109 103 CK-MB (CK-2) 3.94 Troponin I 0.097 NT-Pro-B Natriuret Pep 11/11/18 11/14/18 11:12 04:08 Creatine Kinase CK-MB (CK-2) 3.86 Troponin I 0.067 NT-Pro-B Natriuret Pep 200 Impressions: Cervical Spine CT 11/10/18 22:06 IMPRESSION: No acute cervical spinal fracture is identified. Multilevel degenerative change Head CT 11/10/18 22:06 IMPRESSION: No acute intracranial abnormality is identified. Chest X-Ray 11/15/18 06:00 IMPRESSION: NO SIGNIFICANT CHANGE IN APPEARANCE OF THE CHEST. Assessment and Plan - Diagnosis (1) Acute and chronic respiratory failure with hypercapnia Is this a current diagnosis for this admission?: Yes Plan: No Significant changes. Remains intubated and hypoxic. Multifactorial. Complicated by acute EtOH intoxication/COPD exacerbation with oxygen dependence. Intubation day 5. IV ceftriaxone day 4 Continue ventilatory support, DT protocol, ICU admission, daily ABG and chest x- ray. 11/15/2018: SBP 29233, T-max 100.0, pulse 60s, RR 20 MV, SPO2 97% FiO2 50%. SIMV, RS 20, VT 550, PEEP 5. ABG: pH 7.42, PCO2 42.1, PO2 65.3, FiO2 50%. 11/14/2018: SBP 165234, pulse 60s, RR 20 MV, SPO2 97 to 50% MV. SIMV, RS 20, VT 550, PEEP 5. ABG pH 7.47, PCO2 36.3, PO2 63.8, FiO2 50%. 11/13/2018: SBP 38992, T-max 100.4, pulse 60s, RR 2033, SPO2 9195 FiO2 40% ABG pH 7.41, PCO2 43.9, PO2 70.8, FiO2 40%, SIMV, VT 550, PEEP 5. 11/12/2018: SBP 88215, T-max 100.6, P 11119, RR 1732, SPO2 92% FiO2 50%. VT 550, RR 16, PEEP 5. ABG: pH 7.30, PCO2 59.6, PO2 85.2, FiO2 45%. (2) Acute alcohol intoxication with alcoholism Qualifiers: Complication of substance-induced condition: with delirium Qualified Code(s): F10.221 - Alcohol dependence with intoxication delirium Is this a current diagnosis for this admission?: Yes Plan: Serum alcohol 196 on admission. Agitation controlled witch ativan drip, PRN Haldol, Zyprexa Continue D5 NS, Ativan drip, folate, vitamin B12, thiamine supplement. Monitor for seizures. (3) Acute kidney injury superimposed on chronic kidney disease Is this a current diagnosis for this admission?: Yes Plan: Resovled. Likely prerenal. Creatinine 2.26 on admission. Baseline 0.8. 11/15/2018: WBC 15.1, hemoglobin 12.0, platelets 235, sodium 139, potassium 3.4, bicarb 26, Head Of Commission Department 0.9 11/14/2018: WBC 17.7, Hgb 11.8, platelets 212, sodium 138.1, potassium 3.5, bicarb 26, Head Of Commission Department 1.1, FBG 128, POC glucose 473955. 11/13/2018: WBC 19.7 up from 15.3, no bandemia, hemoglobin 12.1, platelet 222, sodium 137, potassium 4.1, bicarb 27, Head Of Commission Department 1.03, FBG 138, POC glucose 636009, 11/12/2018: WBC 15.3, bands 0, hemoglobin 12.6, platelets 259, sodium 138.5, p otassium 4.9, bicarb 29, creatinine 1.43 down from 2.26 on admission, baseline 0.8, Continue IV fluids, monitor volume status, monitor electrolytes, replace as needed. (4) Altered mental status Qualifiers: Altered mental status type: coma Coma depth: [place] coma 3-8 Coma timing: in the field (EMT or ambulance) Qualified Code(s): R40.2431 - [place] coma scale score 3-8, in the field [EMT or ambulance] Is this a current diagnosis for this admission?: Yes Plan: As per #2. (5) HTN (hypertension) Qualifiers: Hypertension type: essential hypertension Qualified Code(s): I10 - Essential (primary) hypertension Is this a current diagnosis for this admission?: Yes Plan: Controlled. Likely was exacerbated by agitation. Continue Lasix, lisinopril. Adjust meds as needed. Hold BP meds if MAP less than 65. 11/15/2018: SBP 40048, T-max 100.0, pulse 60s, RR 20 MV, SPO2 97% FiO2 50%. 11/14/2018: SBP 260626, pulse 60s, RR 20 MV, SPO2 97 to 50% MV. 11/13/2018: SBP 14847, T-max 100.4, pulse 60s, RR 2033, SPO2 9195 FiO2 40% 11/12/2018: SBP 12100, T-max 100.6, P 60694, RR 1732, SPO2 92% FiO2 50%. (6) Obesity (BMI 30-39.9) Is this a current diagnosis for this admission?: Yes Plan: Encourage diet and lifestyle modification. (7) Pneumonia Is this a current diagnosis for this admission?: No Plan: Improving. Aspiration versus community acquired pneumonia. Blood cultures negative. 11/13/2018. Tracheal aspirate gram-negative rods. 11/12/2018. Urine culture positive for E. coli pansensitive. Leukocytosis and fever improving Ceftriaxone day 4. (8) UTI (urinary tract infection) Qualifiers: Urinary tract infection type: acute cystitis Is this a current diagnosis for this admission?: Yes Plan: Due to gram-negative rods E. coli pansensitive. 11/13/2018. Tracheal aspirate gram-negative rods. 11/12/2018 urine culture positive for E. coli pansensitive. Ceftriaxone IV day 4
[2018-11-16] MEDS: METOCLOPRAMIDE HCL INJ/PF 10 MG/2 ML SDV IV SCH ×4 (01:08→17:21)
[2018-11-16] MEDS: HEPARIN SOD (PORCINE) 5,000 UNIT/ML 1 ML SYRINGE SUBCUT SCH ×4 (01:08→21:09)
[2018-11-16] MEDS: LORAZEPAM 24 MG/240 ML BAG IV PRN ×4 (01:11→21:04)
[2018-11-16] MEDS: DEXMEDETOMIDINE IN 0.9 % NACL 400 MCG/100 ML RTUPB IV PRN ×8 (01:13→22:07)
[2018-11-16] MEDS: BUPROPION HCL 75 MG TABLET NG SCH ×3 (01:14→21:09)
[2018-11-16] MEDS: OLANZAPINE 5 MG TABLET PO SCH ×3 (01:15→21:09)
[2018-11-16] MEDS: MONTELUKAST SODIUM 10 MG TABLET NG SCH ×2 (01:15→21:09)
[2018-11-16] MEDS: FAMOTIDINE 20 MG TABLET PO SCH ×3 (01:15→21:09)
[2018-11-16] MEDS: INSULIN LISPRO 100 UNIT/ML 3 ML VIAL SUBCUT SCH ×5 (01:16→21:03)
[2018-11-16] MEDS: IPRATROPIUM/ALBUTEROL 0.5-2.5 MG/3 ML AMPUL NEB SCH ×4 (01:45→20:08)
[2018-11-16] MEDS: PIPERACILLIN SODIUM/TAZOBACTAM 3.375 GM in NORMAL SALINE 100 ML IV SCH ×3 (02:07→17:20)
[2018-11-16] MEDS: DEXTROSE 5%-NORMAL SALINE 1,000 ML IV PRN (02:25)
[2018-11-16 03:53] LABS: ABSOLUTE BASOPHILS # (AUTO) 0.1 10^3/uL (0.0-0.2); ABSOLUTE EOSINOPHILS # (AUTO) 0.2 10^3/uL (0.0-0.6); ABSOLUTE LYMPHOCYTES (AUTO) 1.6 10^3/uL (0.5-4.7); ABSOLUTE MONOCYTES (AUTO) 1.4 10^3/uL (0.1-1.4); ABSOLUTE NEUT (AUTO) 10.2 10^3/uL (1.7-8.2); BASOPHILS % (AUTO) 0.5 % (0-2); EOSINOPHILS % (AUTO) 1.7 % (0-6); HEMATOCRIT 33.3 % (37.9-51.0); HEMOGLOBIN 11.2 g/dL (13.5-17.0); LYMPHOCYTES % (AUTO) 11.8 % (13-45); MEAN CORPUSCULAR HEMOGLOBIN 31.9 pg (27.0-33.4); MEAN CORPUSCULAR HGB CONC 33.8 g/dL (32.0-36.0); MEAN CORPUSCULAR VOLUME 94 fl (80-97); MONOCYTES % (AUTO) 10.5 % (3-13); PLATELET COUNT 237 10^3/uL (150-450); RED BLOOD COUNT 3.53 10^6/uL (4.35-5.55); RED CELL DISTRIBUTION WIDTH 13.9 % (11.5-14.0); SEGMENTED NEUTROPHILS % (AUTO) 75.5 % (42-78); TOTAL CELLS COUNTED % (AUTO) 100 %; WHITE BLOOD COUNT 13.5 10^3/uL (4.0-10.5)
[2018-11-16 04:10] LABS: BLOOD UREA NITROGEN 12 mg/dL (7-20); CALCIUM 8.1 mg/dL (8.4-10.2); GLUCOSE 100 mg/dL (75-110)
[2018-11-16 04:11] LABS: ANION GAP 8 (5-19); CARBON DIOXIDE 24 mmol/L (22-30); CHLORIDE 105 mmol/L (98-107); POTASSIUM 3.8 mmol/L (3.6-5.0); SODIUM 137.1 mmol/L (137-145)
[2018-11-16] MEDS ORDERED: METOCLOPRAMIDE HCL INJ/PF 10 MG/2 ML SDV ONE (05:30)
[2018-11-16 06:56] LABS: ARTERIAL BLOOD BASE EXCESS 0.7 mmol/L; ARTERIAL BLOOD FIO2 40%; ARTERIAL BLOOD H2CO3 1.19 mmol/L (1.05-1.35); ARTERIAL BLOOD HCO3 25.1 mmol/L (20-24); ARTERIAL BLOOD O2 SATURATION 95.3 % (94-98); ARTERIAL BLOOD PCO2 39.6 mmHg (35-45); ARTERIAL BLOOD PH 7.42 (7.35-7.45); ARTERIAL BLOOD PO2 74.6 mmHg (80-100); ARTERIAL BLOOD TOTAL CO2 26.3 mmol/L (23-27)
[2018-11-16] MEDS: BUDESONIDE NEB 0.5 MG/2 ML AMPUL NEB SCH ×2 (08:07→20:08)
[2018-11-16] MEDS: DOCUSATE SODIUM 100 MG/10 ML UDC PO SCH ×2 (09:13→17:21)
[2018-11-16] MEDS: FUROSEMIDE 40 MG TABLET PO SCH (09:14)
[2018-11-16] MEDS: TAMSULOSIN HCL 0.4 MG CAP.SR.24H PO SCH (09:14)
[2018-11-16] MEDS: AMINO AC/PROTEIN HYDR/WHEY PRO 11 GM/45 ML PKT NG SCH ×3 (09:14→17:21)
[2018-11-16] MEDS: THIAMINE HCL 100 MG TABLET NG SCH (09:14)
[2018-11-16] MEDS: FOLIC ACID/VITAMIN B COMP W-C CAPSULE NG SCH (09:14)
--- NOTE | 2018-11-16 09:16 | RADIOLOGY REPORT (SQ) ---
EXAM DESCRIPTION: CHEST SINGLE VIEW COMPLETED DATE/TIME: 11/16/2018 6:43 am REASON FOR STUDY: resp failure COMPARISON: 11/15/2018. EXAM PARAMETERS: NUMBER OF VIEWS: One view. TECHNIQUE: Single frontal radiographic view of the chest acquired. RADIATION DOSE: NA LIMITATIONS: None. FINDINGS: LUNGS AND PLEURA: Faint basilar densities, unchanged. MEDIASTINUM AND HILAR STRUCTURES: No masses. Contour normal. HEART AND VASCULAR STRUCTURES: Heart normal in size. Normal vasculature. BONES: No acute findings. HARDWARE: Stable endotracheal tube and nasogastric tube. OTHER: No other significant finding. IMPRESSION: NO SIGNIFICANT CHANGE IN APPEARANCE OF THE CHEST. TECHNICAL DOCUMENTATION: JOB ID: [id number] [employer]- All Rights Reserved Reading location - IP/workstation name: [email or web address]
[2018-11-16] MEDS: MAGNESIUM SULFATE 1 GM/D5W 100 ML IV SCH ×2 (09:17→10:44)
[2018-11-16] MEDS: FUROSEMIDE INJ/PF 20 MG/2 ML SDV IV SCH ×2 (10:43→21:09)
[2018-11-16] MEDS: HALOPERIDOL LACTATE INJ 5 MG/1 ML VIAL IV PRN ×3 (10:44→23:05)
[2018-11-16] MEDS: FENTANYL CITRATE INJ/PF 100 MCG/2 ML AMPUL IV PRN ×3 (10:44→23:05)
[2018-11-16 11:56] LABS: CHLAM PCR NOT DETECTED (NOT DETECT); GON PCR NOT DETECTED (NOT DETECT)
--- NOTE | 2018-11-16 16:28 | PDOC PROGRESS REPORT ---
Subjective Progress Note for:: 11/16/18 Subjective:: KAMERON TRUJILLO is a 58 year old male with a past medical history of alcohol abuse, hypertension, hepatic cirrhosis, chronic kidney disease, and COPD with oxygen dependence. Patient presents to the emergency department via EMS with altered mental status and subsequently history is obtained by the record. He is intubated by emergency department provider for a GCS of 3 with hypoxia and unprotected airway. Patient was noted by his at approximately 7:30 PM com plaining of feeling tired and found approximately 15 minutes later unresponsive. Patient's believed he had been drinking excessively. ABG reveals hypoxic and hypercapnic respiratory failure, chemistry reveals a potassium 7.5 without peak T waves, creatinine of 2.2, serum alcohol is 196. Family is unavailable for interview. 11/12/2018. Overnight patient became hypotensive, likely due to propofol. Propofol was DC'd and patient was started on Precedex and midazolam him a briefly placed on levofed. Extremely agitated and riding the vent even being on Precedex and midazolam. Midazolam was switched with Ativan, and as needed Haldol with good results. SBP 04443, T-max 100.6, pulse 39473, RR 1732, SPO2 92% 5-50 per echo ventilation. VT 550, rate set 16, PEEP 5. ABG: pH 7.30, PCO2 59.6, PO2 85.2, FiO2 45%. WBC 15.3, bands 0, hemoglobin 12.6, platelets 259, sodium 138.5, potassium 4.9, bicarb 29, creatinine 1.43 down from 2.26 on admission, baseline 0.8, 11/13/2018. No acute events overnight, patient has been less agitated than yesterday, in the morning he got agitated again, still sedated on propofol and Ativan drip with as needed Haldol. SBP 59877, T-max 100.4, pulse 60s, RR 2033, SPO2 9195 FiO2 40%, ABG pH 7.41, PCO2 43.9, PO2 70.8, FiO2 40%, SIMV, VT 550, PEEP 5. WBC 19.7 up from 15.3, no bandemia, hemoglobin 12.1, platelet 222, sodium 137, potassium 4.1, bicarb 27, creatinine 1.03, FBG 138, POC glucose [id number], 11/14/2018. No acute events overnight. Patient is still dependent on mechanical ventilation. Failed weaning. SBP 709963, pulse 60s, RR 20 MV, SPO2 97 to 50% MV. SIMV, RS 20, VT 550, PEEP 5. PCO2 36.3, PO2 63.8, FiO2 50%. WBC 17.7, Hgb 11.8, platelets 212, sodium 138.1, potassium 3.5, bicarb 26, creatinine 1.1, FBG 128, POC glucose [id number]. 11/15/2018: No acute events overnight. Patient is still dependent on mechanical ventilation. Failed weaning. SBP 29593, T-max 100.0, pulse 60s, RR 20 MV, SPO2 97% FiO2 50%. SIMV, RS 20, VT 550, PEEP 5. Fluid balance + ABG: pH 7.42, PCO2 42.1, PO2 65.3, FiO2 50%. 561, WBC 15.1, hemoglobin 12.0, platelets 235, sodium 139, potassium 3.4, bicarb 26, High Lead Yarder 0.9 11/16/2018. No acute events overnight. pt is still intubated and sedated. SBP 971 01, T-max 98.6, pulse 60s, RR 20, SPO2 96%, FiO2 40% SIMV, RS 20, VT 550, PEEP 5, ABG: pH 7.42, PCO2 39.7, PO2 74.6, FiO2 40%. WBC 13.5, hemoglobin 11.2, platelets 235, odium 137, potassium 3.8, bicarb 24, creatinine 0.9, Mg 2.1, fluid balance -591 Reason For Visit: ACUTE RESP FAILURE, CKD, ETOH INTOX Physical Exam Vital Signs: Temp Pulse Resp BP Pulse Ox 98.6 F 59 L 20 101/61 96 11/16/18 12:00 11/16/18 14:35 11/16/18 14:35 11/16/18 13:39 11/16/18 14:35 Intake & Output 11/15/18 11/16/18 11/17/18 06:59 06:59 06:59 Intake Total 5156 3936 1511 Output Total 4521 3050 920 Balance 561 886 591 Weight 114.7 kg 117.2 kg General appearance: PRESENT: no acute distress, well-developed, well-nourished Head exam: PRESENT: atraumatic, normocephalic Neck exam: ABSENT: carotid bruit, JVD, lymphadenopathy, thyromegaly Respiratory exam: PRESENT: clear to auscultation abi. ABSENT: rales, rhonchi, wheezes Cardiovascular exam: PRESENT: RRR. ABSENT: diastolic murmur, rubs, systolic murmur Extremities exam: PRESENT: full ROM. ABSENT: calf tenderness, clubbing, pedal edema Results Laboratory Results: 11/16/18 03:25 11/16/18 03:25 11/15/18 11/15/18 11/16/18 19:12 19:12 03:25 WBC RBC Hgb Hct MCV MCH MCHC RDW Plt Count Seg Neutrophils % Lymphocytes % Monocytes % Eosinophils % Basophils % Absolute Neutrophils Absolute Lymphocytes Absolute Monocytes Absolute Eosinophils Absolute Basophils Carbonic Acid HCO3/H2CO3 Ratio ABG pH ABG pCO2 ABG pO2 ABG HCO3 ABG O2 Saturation ABG Base Excess FiO2 Sodium 137.1 Potassium 3.7 3.8 Chloride 105 Carbon Dioxide 24 Anion Gap 8 BUN 12 Creatinine 0.91 Est GFR ( Amer) > 60 Est GFR (Non-Af Amer) > 60 Glucose 100 Calcium 8.1 L Magnesium 1.5 L 1.5 L 11/16/18 11/16/18 11/16/18 03:25 06:25 14:20 WBC 13.5 H RBC 3.53 L Hgb 11.2 L Hct 33.3 L MCV 94 MCH 31.9 MCHC 33.8 RDW 13.9 Plt Count 237 Seg Neutrophils % 75.5 Lymphocytes % 11.8 L Monocytes % 10.5 Eosinophils % 1.7 Basophils % 0.5 Absolute Neutrophils 10.2 H Absolute Lymphocytes 1.6 Absolute Monocytes 1.4 Absolute Eosinophils 0.2 Absolute Basophils 0.1 Carbonic Acid 1.19 HCO3/H2CO3 Ratio 21:1 ABG pH 7.42 ABG pCO2 39.6 ABG pO2 74.6 L ABG HCO3 25.1 H ABG O2 Saturation 95.3 ABG Base Excess 0.7 FiO2 40% Sodium Potassium Chloride Carbon Dioxide Anion Gap BUN Creatinine Est GFR ( Amer) Est GFR (Non-Af Amer) Glucose Calcium Magnesium 2.1 11/10/18 11/10/18 11/10/18 23:20 23:20 23:20 Creatine Kinase 118 CK-MB (CK-2) 4.39 Troponin I 0.078 NT-Pro-B Natriuret Pep 426 11/11/18 11/11/18 11/11/18 05:00 05:00 11:12 Creatine Kinase 109 103 CK-MB (CK-2) 3.94 Troponin I 0.097 NT-Pro-B Natriuret Pep 11/11/18 11/14/18 11:12 04:08 Creatine Kinase CK-MB (CK-2) 3.86 Troponin I 0.067 NT-Pro-B Natriuret Pep 200 Impressions: Cervical Spine CT 11/10/18 22:06 IMPRESSION: No acute cervical spinal fracture is identified. Multilevel degenerative change Head CT 11/10/18 22:06 IMPRESSION: No acute intracranial abnormality is identified. Chest X-Ray 11/16/18 06:00 IMPRESSION: NO SIGNIFICANT CHANGE IN APPEARANCE OF THE CHEST. Assessment and Plan - Diagnosis (1) Acute and chronic respiratory failure with hypercapnia Is this a current diagnosis for this admission?: Yes Plan: Improving. Hypoxia improving. Remains intubated. Multifactorial. Complicated by acute EtOH intoxication/COPD exacerbation with oxygen dependence. Intubation day 6 IV Zosyn day 5 Continue ventilatory support, DT protocol, ICU admission, daily ABG and chest x- ray. SBP 971 01, T-max 98.6, pulse 60s, RR 20, SPO2 96%, FiO2 40% SIMV, RS 20, VT 550, PEEP 5 ABG: pH 7.42, PCO2 39.7, PO2 74.6, FiO2 40%. fluid balance -591 11/15/2018: SBP 37738, T-max 100.0, pulse 60s, RR 20 MV, SPO2 97% FiO2 50%. SIMV, RS 20, VT 550, PEEP 5. ABG: pH 7.42, PCO2 42.1, PO2 65.3, FiO2 50%. 11/14/2018: SBP 433444, pulse 60s, RR 20 MV, SPO2 97 to 50% MV. SIMV, RS 20, VT 550, PEEP 5. ABG pH 7.47, PCO2 36.3, PO2 63.8, FiO2 50%. 11/13/2018: SBP 12767, T-max 100.4, pulse 60s, RR 2033, SPO2 9195 FiO2 40% ABG pH 7.41, PCO2 43.9, PO2 70.8, FiO2 40%, SIMV, VT 550, PEEP 5. 11/12/2018: SBP 64505, T-max 100.6, P 75013, RR 1732, SPO2 92% FiO2 50%. VT 550, RR 16, PEEP 5. ABG: pH 7.30, PCO2 59.6, PO2 85.2, FiO2 45%. (2) Acute alcohol intoxication with alcoholism Qualifiers: Complication of substance-induced condition: with delirium Qualified Code(s): F10.221 - Alcohol dependence with intoxication delirium Is this a current diagnosis for this admission?: Yes Plan: Serum alcohol 196 on admission. Agitation controlled witch ativan drip, PRN Haldol, Zyprexa Continue D5 NS, Ativan drip, folate, vitamin B12, thiamine supplement. Monitor for seizures. (3) Acute kidney injury superimposed on chronic kidney disease Is this a current diagnosis for this admission?: Yes Plan: Resovled. Likely prerenal. Creatinine 2.26 on admission. Baseline 0.8. 11/15/2018: WBC 15.1, hemoglobin 12.0, platelets 235, sodium 139, potassium 3.4, bicarb 26, High Lead Yarder 0.9 11/14/2018: WBC 17.7, Hgb 11.8, platelets 212, sodium 138.1, potassium 3.5, bicarb 26, High Lead Yarder 1.1, FBG 128, POC glucose [id number]. 11/13/2018: WBC 19.7 up from 15.3, no bandemia, hemoglobin 12.1, platelet 222, sodium 137, potassium 4.1, bicarb 27, High Lead Yarder 1.03, FBG 138, POC glucose [id number], 11/12/2018: WBC 15.3, bands 0, hemoglobin 12.6, platelets 259, sodium 138.5, potassium 4.9, bicarb 29, creatinine 1.43 down from 2.26 on admission, baseline 0.8, Continue IV fluids, monitor volume status, monitor electrolytes, replace as needed. (4) Altered mental status Qualifiers: Altered mental status type: coma Coma depth: Pike coma 3-8 Coma timing: in the field (EMT or ambulance) Qualified Code(s): R40.2431 - Manjula coma scale score 3-8, in the field [EMT or ambulance] Is this a current diagnosis for this admission?: Yes Plan: As per #2. (5) HTN (hypertension) Qualifiers: Hypertension type: essential hypertension Qualified Code(s): I10 - Essential (primary) hypertension Is this a current diagnosis for this admission?: Yes Plan: Controlled. Likely was exacerbated by agitation. Continue Lasix, lisinopril. Adjust meds as needed. Hold BP meds if MAP less than 65. 11/16/2018: SBP 971 01, T-max 98.6, pulse 60s, RR 20, SPO2 96%, FiO2 40% 11/15/2018: SBP 09954, T-max 100.0, pulse 60s, RR 20 MV, SPO2 97% FiO2 50%. 11/14/2018: SBP 205214, pulse 60s, RR 20 MV, SPO2 97 to 50% MV. 11/13/2018: SBP 06442, T-max 100.4, pulse 60s, RR 2033, SPO2 9195 FiO2 40% 11/12/2018: SBP 55129, T-max 100.6, P 03119, RR 1732, SPO2 92% FiO2 50%. (6) Obesity (BMI 30-39.9) Is this a current diagnosis for this admission?: Yes Plan: Encourage diet and lifestyle modification. (7) Pneumonia Is this a current diagnosis for this admission?: No Plan: Improving. Aspiration versus community acquired pneumonia. Blood cultures negative. 11/13/2018. Tracheal aspirate gram-negative rods. 11/12/2018. Urine culture positive for E. coli pansensitive. Leukocytosis and fever improving Zosyn day 5. (8) UTI (urinary tract infection) Qualifiers: Urinary tract infection type: acute cystitis Is this a current diagnosis for this admission?: Yes Plan: Due to gram-negative rods E. coli pansensitive. 11/13/2018. Tracheal aspirate gram-negative rods. 11/12/2018 urine culture positive for E. coli pansensitive, Enterococcus faecalis, sebaceous marcescens. Zosyn IV day 5 Chlamydia gonorrhea screening negative.
--- NOTE | 2018-11-16 17:33 | PDOC PROGRESS REPORT ---
Subjective Progress Note for:: 11/16/18 Subjective:: Intubated and sedated Reason For Visit: ACUTE RESP FAILURE, CKD, ETOH INTOX Physical Exam Vital Signs: Temp Pulse Resp BP Pulse Ox 97.9 F 63 20 127/75 H 93 11/16/18 16:00 11/16/18 16:00 11/16/18 16:00 11/16/18 16:00 11/16/18 16:00 Intake & Output 11/15/18 11/16/18 11/17/18 06:59 06:59 06:59 Intake Total 5156 3936 1511 Output Total 4515 3050 1540 Balance 561 886 -29 Weight 114.7 kg 117.2 kg General appearance: PRESENT: no acute distress, disheveled, morbidly obese Head exam: PRESENT: atraumatic, normocephalic Eye exam: PRESENT: conjunctiva pale. ABSENT: nystagmus, periorbital swelling, scleral icterus Mouth exam: PRESENT: dry mucosa, neck supple, tongue midline, other - ET tube Neck exam: ABSENT: carotid bruit, full ROM, JVD, lymphadenopathy, meningismus, tenderness, thyromegaly, tracheal deviation, tracheostomy, other Respiratory exam: PRESENT: decreased breath sounds, prolonged expiratory phas, rales, rhonchi, unlabored. ABSENT: stridor Cardiovascular exam: PRESENT: RRR, +S1, +S2. ABSENT: tachycardia Pulses: PRESENT: normal radial pulses GI/Abdominal exam: PRESENT: soft. ABSENT: mass Gentrourinary exam: ABSENT: indwelling catheter Extremities exam: PRESENT: pedal edema. ABSENT: calf tenderness, joint swelling Musculoskeletal exam: ABSENT: deformity, dislocation Neurological exam: ABSENT: awake Skin exam: PRESENT: dry, warm Results Laboratory Results: 11/16/18 03:25 11/16/18 03:25 11/15/18 11/15/18 11/16/18 19:12 19:12 03:25 WBC RBC Hgb Hct MCV MCH MCHC RDW Plt Count Seg Neutrophils % Lymphocytes % Monocytes % Eosinophils % Basophils % Absolute Neutrophils Absolute Lymphocytes Absolute Monocytes Absolute Eosinophils Absolute Basophils Carbonic Acid HCO3/H2CO3 Ratio ABG pH ABG pCO2 ABG pO2 ABG HCO3 ABG O2 Saturation ABG Base Excess FiO2 Sodium 137.1 Potassium 3.7 3.8 Chloride 105 Carbon Dioxide 24 Anion Gap 8 BUN 12 Creatinine 0.91 Est GFR ( Amer) > 60 Est GFR (Non-Af Amer) > 60 Glucose 100 Calcium 8.1 L Magnesium 1.5 L 1.5 L 11/16/18 11/16/18 11/16/18 03:25 06:25 14:20 WBC 13.5 H RBC 3.53 L Hgb 11.2 L Hct 33.3 L MCV 94 MCH 31.9 MCHC 33.8 RDW 13.9 Plt Count 237 Seg Neutrophils % 75.5 Lymphocytes % 11.8 L Monocytes % 10.5 Eosinophils % 1.7 Basophils % 0.5 Absolute Neutrophils 10.2 H Absolute Lymphocytes 1.6 Absolute Monocytes 1.4 Absolute Eosinophils 0.2 Absolute Basophils 0.1 Carbonic Acid 1.19 HCO3/H2CO3 Ratio 21:1 ABG pH 7.42 ABG pCO2 39.6 ABG pO2 74.6 L ABG HCO3 25.1 H ABG O2 Saturation 95.3 ABG Base Excess 0.7 FiO2 40% Sodium Potassium Chloride Carbon Dioxide Anion Gap BUN Creatinine Est GFR ( Amer) Est GFR (Non-Af Amer) Glucose Calcium Magnesium 2.1 11/10/18 11/10/18 11/10/18 23:20 23:20 23:20 Creatine Kinase 118 CK-MB (CK-2) 4.39 Troponin I 0.078 NT-Pro-B Natriuret Pep 426 11/11/18 11/11/18 11/11/18 05:00 05:00 11:12 Creatine Kinase 109 103 CK-MB (CK-2) 3.94 Troponin I 0.097 NT-Pro-B Natriuret Pep 11/11/18 11/14/18 11:12 04:08 Creatine Kinase CK-MB (CK-2) 3.86 Troponin I 0.067 NT-Pro-B Natriuret Pep 200 Impressions: Cervical Spine CT 11/10/18 22:06 IMPRESSION: No acute cervical spinal fracture is identified. Multilevel degenerative change Head CT 11/10/18 22:06 IMPRESSION: No acute intracranial abnormality is identified. Chest X-Ray 11/16/18 06:00 IMPRESSION: NO SIGNIFICANT CHANGE IN APPEARANCE OF THE CHEST. Assessment & Plan - Diagnosis (1) Acute alcohol intoxication with alcoholism Qualifiers: Complication of substance-induced condition: with delirium Qualified Code(s): F10.221 - Alcohol dependence with intoxication delirium Is this a current diagnosis for this admission?: Yes Plan: Suspect patient will into DTs is it is less than 60 hours since his last alcoholic consumption (2) Acute and chronic respiratory failure with hypercapnia Is this a current diagnosis for this admission?: Yes Plan: Oxygenation and ventilation requirements decreasing and had successful 2 hours of pressure support and CPAP (3) Obesity (BMI 30-39.9) Is this a current diagnosis for this admission?: Yes Plan: Consider nutritional consult (4) COPD (chronic obstructive pulmonary disease) Qualifiers: Emphysema type: unspecified Is this a current diagnosis for this admission?: Yes Plan: Long-acting beta agonist plus long-acting cholinergic would not add a inhaled corticosteroids at this time (5) Pleural effusion Is this a current diagnosis for this admission?: Yes Plan: Thoracentesis ? - Time Total Critical Time (Minutes): 45
--- NOTE | 2018-11-16 17:47 | PDOC PROGRESS REPORT ---
Subjective Progress Note for:: 11/15/18 Subjective:: Intubated and sedated Reason For Visit: ACUTE RESP FAILURE, CKD, ETOH INTOX Physical Exam Vital Signs: Temp Pulse Resp BP Pulse Ox 98.6 F 65 18 106/68 98 11/15/18 07:34 11/15/18 07:56 11/15/18 07:56 11/15/18 07:34 11/15/18 07:56 Intake & Output 11/14/18 11/15/18 11/16/18 06:59 06:59 06:59 Intake Total 4362 5156 213 Output Total 4425 4595 135 Balance -63 561 78 Weight 117 kg 114.7 kg General appearance: PRESENT: no acute distress, disheveled, morbidly obese. ABSENT: cooperative Head exam: PRESENT: atraumatic, normocephalic Eye exam: PRESENT: conjunctiva pale. ABSENT: nystagmus, periorbital swelling, scleral icterus Mouth exam: PRESENT: dry mucosa, neck supple, tongue midline Neck exam: ABSENT: carotid bruit, JVD, lymphadenopathy, thyromegaly, tracheal deviation, tracheostomy Respiratory exam: PRESENT: decreased breath sounds, prolonged expiratory phas, rales, rhonchi, unlabored, wheezes Cardiovascular exam: PRESENT: RRR, +S1, +S2, tachycardia Pulses: ABSENT: normal radial pulses GI/Abdominal exam: ABSENT: mass, soft - 6 Gentrourinary exam: PRESENT: indwelling catheter Extremities exam: PRESENT: pedal edema. ABSENT: calf tenderness, clubbing, joint swelling Musculoskeletal exam: ABSENT: ambulatory, deformity, dislocation Neurological exam: ABSENT: awake Skin exam: PRESENT: dry, warm Results Laboratory Results: 11/15/18 03:38 11/15/18 03:38 11/15/18 11/15/18 11/15/18 03:38 03:38 04:15 WBC 15.1 H RBC 3.73 L Hgb 12.0 L Hct 35.2 L MCV 94 MCH 32.1 MCHC 34.0 RDW 13.8 Plt Count 235 Seg Neutrophils % 75.3 Lymphocytes % 11.9 L Monocytes % 10.5 Eosinophils % 1.8 Basophils % 0.5 Absolute Neutrophils 11.4 H Absolute Lymphocytes 1.8 Absolute Monocytes 1.6 H Absolute Eosinophils 0.3 Absolute Basophils 0.1 Carbonic Acid 1.27 HCO3/H2CO3 Ratio 21:1 ABG pH 7.42 ABG pCO2 42.1 ABG pO2 65.3 L ABG HCO3 26.8 H ABG O2 Saturation 93.2 L ABG Base Excess 2.1 FiO2 50% Sodium 139.5 Potassium 3.4 L Chloride 105 Carbon Dioxide 26 Anion Gap 9 BUN 10 Creatinine 0.99 Est GFR ( Amer) > 60 Est GFR (Non-Af Amer) > 60 Glucose 103 Calcium 8.3 L Magnesium 1.5 L Total Bilirubin 0.7 AST 12 L ALT 18 L Alkaline Phosphatase 69 Total Protein 4.9 L Albumin 2.3 L 11/12/18 08:30 Urethra Gram Stain - Final 11/12/18 08:30 Catheterized Urine Urine Culture - Final Escherichia Coli 11/10/18 11/10/18 11/10/18 23:20 23:20 23:20 Creatine Kinase 118 CK-MB (CK-2) 4.39 Troponin I 0.078 NT-Pro-B Natriuret Pep 426 11/11/18 11/11/18 11/11/18 05:00 05:00 11:12 Creatine Kinase 109 103 CK-MB (CK-2) 3.94 Troponin I 0.097 NT-Pro-B Natriuret Pep 11/11/18 11/14/18 11:12 04:08 Creatine Kinase CK-MB (CK-2) 3.86 Troponin I 0.067 NT-Pro-B Natriuret Pep 200 Impressions: Cervical Spine CT 11/10/18 22:06 IMPRESSION: No acute cervical spinal fracture is identified. Multilevel degenerative change Head CT 11/10/18 22:06 IMPRESSION: No acute intracranial abnormality is identified. Chest X-Ray 11/15/18 06:00 IMPRESSION: NO SIGNIFICANT CHANGE IN APPEARANCE OF THE CHEST. Assessment & Plan - Diagnosis (1) Acute alcohol intoxication with alcoholism Qualifiers: Complication of substance-induced condition: with delirium Qualified Code(s): F10.221 - Alcohol dependence with intoxication delirium Is this a current diagnosis for this admission?: Yes Plan: stable no seizures (2) Acute and chronic respiratory failure with hypercapnia Is this a current diagnosis for this admission?: Yes Plan: Oxygenation and ventilation requirements decreasing and had successful 2 hours of pressure support and CPAP (3) Obesity (BMI 30-39.9) Is this a current diagnosis for this admission?: Yes Plan: Consider nutritional consult (4) COPD (chronic obstructive pulmonary disease) Qualifiers: Emphysema type: unspecified Is this a current diagnosis for this admission?: Yes Plan: Long-acting beta agonist plus long-acting cholinergic would not add a inhaled corticosteroids at this time - Time Total Critical Time (Minutes): 45
[2018-11-17] MEDS ORDERED: METOCLOPRAMIDE HCL INJ/PF 10 MG/2 ML SDV ONE (01:07)
[2018-11-17] MEDS: DEXMEDETOMIDINE IN 0.9 % NACL 400 MCG/100 ML RTUPB IV PRN ×8 (01:07→23:38)
[2018-11-17] MEDS: PIPERACILLIN SODIUM/TAZOBACTAM 3.375 GM in NORMAL SALINE 100 ML IV SCH ×3 (01:43→18:15)
[2018-11-17] MEDS: METOCLOPRAMIDE HCL INJ/PF 10 MG/2 ML SDV IV SCH ×5 (01:43→23:38)
[2018-11-17] MEDS: IPRATROPIUM/ALBUTEROL 0.5-2.5 MG/3 ML AMPUL NEB SCH ×4 (02:09→20:32)
[2018-11-17] MEDS: LORAZEPAM 24 MG/240 ML BAG IV PRN ×3 (03:19→20:52)
[2018-11-17 04:14] LABS: ABSOLUTE BASOPHILS # (AUTO) 0.1 10^3/uL (0.0-0.2); ABSOLUTE EOSINOPHILS # (AUTO) 0.3 10^3/uL (0.0-0.6); ABSOLUTE LYMPHOCYTES (AUTO) 1.8 10^3/uL (0.5-4.7); ABSOLUTE MONOCYTES (AUTO) 1.3 10^3/uL (0.1-1.4); ABSOLUTE NEUT (AUTO) 8.4 10^3/uL (1.7-8.2); BASOPHILS % (AUTO) 0.6 % (0-2); EOSINOPHILS % (AUTO) 2.4 % (0-6); HEMATOCRIT 34.5 % (37.9-51.0); HEMOGLOBIN 11.3 g/dL (13.5-17.0); LYMPHOCYTES % (AUTO) 15.1 % (13-45); MEAN CORPUSCULAR HEMOGLOBIN 31.1 pg (27.0-33.4); MEAN CORPUSCULAR HGB CONC 32.9 g/dL (32.0-36.0); MEAN CORPUSCULAR VOLUME 95 fl (80-97); MONOCYTES % (AUTO) 10.7 % (3-13); PLATELET COUNT 258 10^3/uL (150-450); RED BLOOD COUNT 3.65 10^6/uL (4.35-5.55); RED CELL DISTRIBUTION WIDTH 13.8 % (11.5-14.0); SEGMENTED NEUTROPHILS % (AUTO) 71.2 % (42-78); TOTAL CELLS COUNTED % (AUTO) 100 %; WHITE BLOOD COUNT 11.8 10^3/uL (4.0-10.5)
[2018-11-17 04:36] LABS: ALANINE AMINOTRANSFERASE 23 U/L (21-72); ALBUMIN 2.4 g/dL (3.5-5.0); ALKALINE PHOSPHATASE 96 U/L (38-126); ANION GAP 8 (5-19); ASPARTATE AMINO TRANSFERASE 15 U/L (17-59); BILIRUBIN,DIRECT 0.3 mg/dL (0.0-0.4); BILIRUBIN,TOTAL 0.4 mg/dL (0.2-1.3); BLOOD UREA NITROGEN 14 mg/dL (7-20); CALCIUM 8.7 mg/dL (8.4-10.2); CARBON DIOXIDE 26 mmol/L (22-30); CHLORIDE 104 mmol/L (98-107); GLUCOSE 95 mg/dL (75-110); PHOSPHORUS 4.6 mg/dL (2.5-4.5); POTASSIUM 3.7 mmol/L (3.6-5.0); SODIUM 138.4 mmol/L (137-145); TOTAL PROTEIN 5.2 g/dL (6.3-8.2)
[2018-11-17] MEDS ORDERED: HEPARIN SOD (PORCINE) 5,000 UNIT/ML 1 ML SYRINGE ONE (05:21)
[2018-11-17] MEDS: HEPARIN SOD (PORCINE) 5,000 UNIT/ML 1 ML SYRINGE SUBCUT SCH ×3 (05:54→22:06)
[2018-11-17 06:37] LABS: ARTERIAL BLOOD BASE EXCESS 2.8 mmol/L; ARTERIAL BLOOD H2CO3 1.19 mmol/L (1.05-1.35); ARTERIAL BLOOD HCO3 26.9 mmol/L (20-24); ARTERIAL BLOOD O2 SATURATION 94.6 % (94-98); ARTERIAL BLOOD PCO2 39.4 mmHg (35-45); ARTERIAL BLOOD PH 7.45 (7.35-7.45); ARTERIAL BLOOD PO2 68.9 mmHg (80-100); ARTERIAL BLOOD TOTAL CO2 28.1 mmol/L (23-27)
[2018-11-17 06:40] LABS: ARTERIAL BLOOD FIO2 40%
[2018-11-17] MEDS: INSULIN LISPRO 100 UNIT/ML 3 ML VIAL SUBCUT SCH ×4 (07:45→22:14)
[2018-11-17] MEDS: BUDESONIDE NEB 0.5 MG/2 ML AMPUL NEB SCH ×2 (08:15→20:32)
[2018-11-17] MEDS ORDERED: MAG HYDROX/AL HYDROX/SIMETH SUSP 30 ML UDCUP NG PRN (09:00)
--- NOTE | 2018-11-17 09:34 | RADIOLOGY REPORT (SQ) ---
EXAM DESCRIPTION: CHEST SINGLE VIEW COMPLETED DATE/TIME: 11/17/2018 6:31 am REASON FOR STUDY: intubated COMPARISON: 11/16/2018 NUMBER OF VIEWS: One view. TECHNIQUE: Single frontal radiographic image of the chest acquired. LIMITATIONS: None. FINDINGS: LUNGS AND PLEURA: Bilateral basilar airspace disease, left greater than right. Silhouetti ng of the left hemidiaphragm since yesterday. No pneumothorax. MEDIASTINUM AND HEART: Stable heart size and mediastinal structures. SUPPORT DEVICES: Appropriate location without change. BONY STRUCTURES: No acute findings. HARDWARE: None. OTHER: No other significant finding. IMPRESSION: Rehydration versus progressing pneumonia left lower lobe. No pneumothorax. Reading location - IP/workstation name: [email or web address]
[2018-11-17] MEDS: THIAMINE HCL 100 MG TABLET NG SCH (10:02)
[2018-11-17] MEDS: FOLIC ACID/VITAMIN B COMP W-C CAPSULE NG SCH (10:03)
[2018-11-17] MEDS: DOCUSATE SODIUM 100 MG/10 ML UDC NG SCH ×2 (10:03→18:15)
[2018-11-17] MEDS: FAMOTIDINE 20 MG TABLET NG SCH ×2 (10:03→22:06)
[2018-11-17] MEDS: TAMSULOSIN HCL 0.4 MG CAP.SR.24H PO SCH (10:03)
[2018-11-17] MEDS: FUROSEMIDE 40 MG TABLET NG SCH (10:04)
[2018-11-17] MEDS: AMINO AC/PROTEIN HYDR/WHEY PRO 11 GM/45 ML PKT NG SCH ×3 (10:04→18:15)
[2018-11-17] MEDS: OLANZAPINE 5 MG TABLET NG SCH ×2 (10:04→22:05)
[2018-11-17] MEDS: BUPROPION HCL 75 MG TABLET NG SCH ×2 (10:15→22:05)
--- NOTE | 2018-11-17 12:45 | PDOC PROGRESS REPORT ---
Subjective Progress Note for:: 11/17/18 Subjective:: remains Intubated and sedated Reason For Visit: ACUTE RESP FAILURE, CKD, ETOH INTOX Physical Exam Vital Signs: Temp Pulse Resp BP Pulse Ox 99.5 F 65 20 103/66 95 11/17/18 07:57 11/17/18 08:24 11/17/18 08:15 11/17/18 07:57 11/17/18 08:15 Intake & Output 11/16/18 11/17/18 11/18/18 06:59 06:59 06:59 Intake Total 3936 2677 23 Output Total 3057 4210 75 Balance 886 -1533 -52 Weight 117.2 kg 115.4 kg General appearance: PRESENT: no acute distress, morbidly obese. ABSENT: cooperative, disheveled Head exam: PRESENT: atraumatic, normocephalic Eye exam: PRESENT: conjunctiva pale. ABSENT: nystagmus, periorbital swelling Mouth exam: PRESENT: dry mucosa, neck supple, tongue midline, other - ET tube Neck exam: ABSENT: carotid bruit, full ROM, JVD, lymphadenopathy, meningismus, tenderness, thyromegaly, tracheal deviation, tracheostomy, other Respiratory exam: PRESENT: decreased breath sounds, prolonged expiratory phas, rales, rhonchi, unlabored, wheezes. ABSENT: retraction Cardiovascular exam: PRESENT: irregular rhythm Pulses: PRESENT: normal radial pulses GI/Abdominal exam: PRESENT: soft. ABSENT: mass Gentrourinary exam: PRESENT: indwelling catheter Extremities exam: PRESENT: pedal edema. ABSENT: calf tenderness, clubbing, joint swelling Musculoskeletal exam: ABSENT: ambulatory, deformity, dislocation Neurological exam: ABSENT: awake Skin exam: PRESENT: dry, warm Results Laboratory Results: 11/17/18 03:34 11/17/18 03:34 11/16/18 11/17/18 11/17/18 14:20 03:34 03:34 WBC 11.8 H RBC 3.65 L Hgb 11.3 L Hct 34.5 L MCV 95 MCH 31.1 MCHC 32.9 RDW 13.8 Plt Count 258 Seg Neutrophils % 71.2 Lymphocytes % 15.1 Monocytes % 10.7 Eosinophils % 2.4 Basophils % 0.6 Absolute Neutrophils 8.4 H Absolute Lymphocytes 1.8 Absolute Monocytes 1.3 Absolute Eosinophils 0.3 Absolute Basophils 0.1 Carbonic Acid HCO3/H2CO3 Ratio ABG pH ABG pCO2 ABG pO2 ABG HCO3 ABG O2 Saturation ABG Base Excess FiO2 Sodium 138.4 Potassium 3.7 Chloride 104 Carbon Dioxide 26 Anion Gap 8 BUN 14 Creatinine 1.06 Est GFR ( Amer) > 60 Est GFR (Non-Af Amer) > 60 Glucose 95 Calcium 8.7 Phosphorus 4.6 H Magnesium 2.1 1.9 Total Bilirubin 0.4 AST 15 L ALT 23 Alkaline Phosphatase 96 Total Protein 5.2 L Albumin 2.4 L 11/17/18 06:10 WBC RBC Hgb Hct MCV MCH MCHC RDW Plt Count Seg Neutrophils % Lymphocytes % Monocytes % Eosinophils % Basophils % Absolute Neutrophils Absolute Lymphocytes Absolute Monocytes Absolute Eosinophils Absolute Basophils Carbonic Acid 1.19 HCO3/H2CO3 Ratio 22:1 ABG pH 7.45 ABG pCO2 39.4 ABG pO2 68.9 L ABG HCO3 26.9 H ABG O2 Saturation 94.6 ABG Base Excess 2.8 FiO2 40% Sodium Potassium Chloride Carbon Dioxide Anion Gap BUN Creatinine Est GFR ( Amer) Est GFR (Non-Af Amer) Glucose Calcium Phosphorus Magnesium Total Bilirubin AST ALT Alkaline Phosphatase Total Protein Albumin 11/10/18 11/10/18 11/10/18 23:20 23:20 23:20 Creatine Kinase 118 CK-MB (CK-2) 4.39 Troponin I 0.078 NT-Pro-B Natriuret Pep 426 11/11/18 11/11/18 11/11/18 05:00 05:00 11:12 Creatine Kinase 109 103 CK-MB (CK-2) 3.94 Troponin I 0.097 NT-Pro-B Natriuret Pep 11/11/18 11/14/18 11:12 04:08 Creatine Kinase CK-MB (CK-2) 3.86 Troponin I 0.067 NT-Pro-B Natriuret Pep 200 Impressions: Cervical Spine CT 11/10/18 22:06 IMPRESSION: No acute cervical spinal fracture is identified. Multilevel degenerative change Head CT 11/10/18 22:06 IMPRESSION: No acute intracranial abnormality is identified. Chest X-Ray 11/17/18 06:00 IMPRESSION: Rehydration versus progressing pneumonia left lower lobe. No pneumothorax. Assessment & Plan - Diagnosis (1) Acute alcohol intoxication with alcoholism Qualifiers: Complication of substance-induced condition: with delirium Qualified Code(s): F10.221 - Alcohol dependence with intoxication delirium Is this a current diagnosis for this admission?: Yes Plan: stable no seizures (2) Acute and chronic respiratory failure with hypercapnia Is this a current diagnosis for this admission?: Yes Plan: Oxygenation and ventilation requirements decreasing and had successful 2 hours of pressure support and CPAP (3) Obesity (BMI 30-39.9) Is this a current diagnosis for this admission?: Yes Plan: Consider nutritional consult (4) COPD (chronic obstructive pulmonary disease) Qualifiers: Emphysema type: unspecified Is this a current diagnosis for this admission?: Yes Plan: Long-acting beta agonist plus long-acting cholinergic would not add a inhaled corticosteroids at this time (5) Pleural effusion Is this a current diagnosis for this admission?: Yes Plan: Thoracentesis ? - Time Total Critical Time (Minutes): 45
--- NOTE | 2018-11-17 13:31 | PDOC PROGRESS REPORT ---
Subjective Progress Note for:: 11/17/18 Subjective:: KAMERON TRUJILLO is a 58 year old male with a past medical history of alcohol abuse, hypertension, hepatic cirrhosis, chronic kidney disease, and COPD with oxygen dependence. Patient presents to the emergency department via EMS with altered mental status and subsequently history is obtained by the record. He is intubated by emergency department provider for a GCS of 3 with hypoxia and unprotected airway. Patient was noted by his at approximately 7:30 PM com plaining of feeling tired and found approximately 15 minutes later unresponsive. Patient's believed he had been drinking excessively. ABG reveals hypoxic and hypercapnic respiratory failure, chemistry reveals a potassium 7.5 without peak T waves, creatinine of 2.2, serum alcohol is 196. Family is unavailable for interview. 11/12/2018. Overnight patient became hypotensive, likely due to propofol. Propofol was DC'd and patient was started on Precedex and midazolam him a briefly placed on levofed. Extremely agitated and riding the vent even being on Precedex and midazolam. Midazolam was switched with Ativan, and as needed Haldol with good results. SBP 07561, T-max 100.6, pulse 87414, RR 1732, SPO2 92% 5-50 per echo ventilation. VT 550, rate set 16, PEEP 5. ABG: pH 7.30, PCO2 59.6, PO2 85.2, FiO2 45%. WBC 15.3, bands 0, hemoglobin 12.6, platelets 259, sodium 138.5, potassium 4.9, bicarb 29, creatinine 1.43 down from 2.26 on admission, baseline 0.8, 11/13/2018. No acute events overnight, patient has been less agitated than yesterday, in the morning he got agitated again, still sedated on propofol and Ativan drip with as needed Haldol. SBP 66802, T-max 100.4, pulse 60s, RR 2033, SPO2 9195 FiO2 40%, ABG pH 7.41, PCO2 43.9, PO2 70.8, FiO2 40%, SIMV, VT 550, PEEP 5. WBC 19.7 up from 15.3, no bandemia, hemoglobin 12.1, platelet 222, sodium 137, potassium 4.1, bicarb 27, creatinine 1.03, FBG 138, POC glucose 234072, 11/14/2018. No acute events overnight. Patient is still dependent on mechanical ventilation. Failed weaning. SBP 977161, pulse 60s, RR 20 MV, SPO2 97 to 50% MV. SIMV, RS 20, VT 550, PEEP 5. PCO2 36.3, PO2 63.8, FiO2 50%. WBC 17.7, Hgb 11.8, platelets 212, sodium 138.1, potassium 3.5, bicarb 26, creatinine 1.1, FBG 128, POC glucose 327372. 11/15/2018: No acute events overnight. Patient is still dependent on mechanical ventilation. Failed weaning. SBP 72872, T-max 100.0, pulse 60s, RR 20 MV, SPO2 97% FiO2 50%. SIMV, RS 20, VT 550, PEEP 5. Fluid balance + ABG: pH 7.42, PCO2 42.1, PO2 65.3, FiO2 50%. 561, WBC 15.1, hemoglobin 12.0, platelets 235, sodium 139, potassium 3.4, bicarb 26, Glaze Wiper 0.9 11/16/2018. No acute events overnight. pt is still intubated and sedated. SBP 971 01, T-max 98.6, pulse 60s, RR 20, SPO2 96%, FiO2 40% SIMV, RS 20, VT 550, PEEP 5, ABG: pH 7.42, PCO2 39.7, PO2 74.6, FiO2 40%. WBC 13.5, hemoglobin 11.2, platelets 235, odium 137, potassium 3.8, bicarb 24, creatinine 0.9, Mg 2.1, fluid balance -591 11/17/2018. No acute events overnight. Still intubated, hypoxia improving. SBP 559734, T-max 99.7, pulse 70s, RR 20 MV, SPO2 9196 FiO2 50%. SIMV, or H 20, VT 550, in the 11 L/min, PEEP 5. ABG 7.45, PCO2 39.4, PO2 68.9, FiO2 40%. WBC 11.8, hemoglobin 11.3, platelets 258, sodium 138, potassium 3.7, bicarb 26, creatinine 1.06, fluid balance -1800. Reason For Visit: ACUTE RESP FAILURE, CKD, ETOH INTOX Physical Exam Vital Signs: Temp Pulse Resp BP Pulse Ox 99.7 F 70 20 108/65 96 11/17/18 12:00 11/17/18 12:00 11/17/18 12:00 11/17/18 12:00 11/17/18 12:56 Intake & Output 11/16/18 11/17/18 11/18/18 06:59 06:59 06:59 Intake Total 3936 2677 232 Output Total 305 4210 535 Balance 136 -5917 -303 Weight 117.2 kg 115.4 kg General appearance: PRESENT: morbidly obese Head exam: PRESENT: atraumatic, normocephalic Respiratory exam: PRESENT: clear to auscultation abi, wheezes. ABSENT: rales, rhonchi Cardiovascular exam: PRESENT: RRR. ABSENT: diastolic murmur, rubs, systolic murmur GI/Abdominal exam: PRESENT: normal bowel sounds, soft. ABSENT: distended, guarding, mass, organolmegaly, rebound, tenderness Neurological exam: PRESENT: other - intubated, sedated. Results Laboratory Results: 11/17/18 03:34 11/17/18 03:34 11/16/18 11/17/18 11/17/18 14:20 03:34 03:34 WBC 11.8 H RBC 3.65 L Hgb 11.3 L Hct 34.5 L MCV 95 MCH 31.1 MCHC 32.9 RDW 13.8 Plt Count 258 Seg Neutrophils % 71.2 Lymphocytes % 15.1 Monocytes % 10.7 Eosinophils % 2.4 Basophils % 0.6 Absolute Neutrophils 8.4 H Absolute Lymphocytes 1.8 Absolute Monocytes 1.3 Absolute Eosinophils 0.3 Absolute Basophils 0.1 Carbonic Acid HCO3/H2CO3 Ratio ABG pH ABG pCO2 ABG pO2 ABG HCO3 ABG O2 Saturation ABG Base Excess FiO2 Sodium 138.4 Potassium 3.7 Chloride 104 Carbon Dioxide 26 Anion Gap 8 BUN 14 Creatinine 1.06 Est GFR ( Amer) > 60 Est GFR (Non-Af Amer) > 60 Glucose 95 Calcium 8.7 Phosphorus 4.6 H Magnesium 2.1 1.9 Total Bilirubin 0.4 AST 15 L ALT 23 Alkaline Phosphatase 96 Total Protein 5.2 L Albumin 2.4 L 11/17/18 06:10 WBC RBC Hgb Hct MCV MCH MCHC RDW Plt Count Seg Neutrophils % Lymphocytes % Monocytes % Eosinophils % Basophils % Absolute Neutrophils Absolute Lymphocytes Absolute Monocytes Absolute Eosinophils Absolute Basophils Carbonic Acid 1.19 HCO3/H2CO3 Ratio 22:1 ABG pH 7.45 ABG pCO2 39.4 ABG pO2 68.9 L ABG HCO3 26.9 H ABG O2 Saturation 94.6 ABG Base Excess 2.8 FiO2 40% Sodium Potassium Chloride Carbon Dioxide Anion Gap BUN Creatinine Est GFR ( Amer) Est GFR (Non-Af Amer) Glucose Calcium Phosphorus Magnesium Total Bilirubin AST ALT Alkaline Phosphatase Total Protein Albumin 11/12/18 10:00 Blood Blood Culture - Final NO GROWTH IN 5 DAYS 11/12/18 10:17 Blood Blood Culture - Final NO GROWTH IN 5 DAYS 11/10/18 11/10/18 11/10/18 23:20 23:20 23:20 Creatine Kinase 118 CK-MB (CK-2) 4.39 Troponin I 0.078 NT-Pro-B Natriuret Pep 426 11/11/18 11/11/18 11/11/18 05:00 05:00 11:12 Creatine Kinase 109 103 CK-MB (CK-2) 3.94 Troponin I 0.097 NT-Pro-B Natriuret Pep 11/11/18 11/14/18 11:12 04:08 Creatine Kinase CK-MB (CK-2) 3.86 Troponin I 0.067 NT-Pro-B Natriuret Pep 200 Impressions: Cervical Spine CT 11/10/18 22:06 IMPRESSION: No acute cervical spinal fracture is identified. Multilevel degenerative change Head CT 11/10/18 22:06 IMPRESSION: No acute intracranial abnormality is identified. Chest X-Ray 11/17/18 06:00 IMPRESSION: Rehydration versus progressing pneumonia left lower lobe. No pneumothorax. Assessment and Plan - Diagnosis (1) Acute and chronic respiratory failure with hypercapnia Is this a current diagnosis for this admission?: Yes Plan: Improving. Hypoxia improving. Remains intubated. Multifactorial. Complicated by acute EtOH intoxication/COPD exacerbation with oxygen dependence. Intubation day 7 IV Zosyn day 6 IV steroids day 1. Continue ventilatory support, DT protocol, ICU admission, daily ABG and chest x- ray. 11/17/2018: SBP 488792, T-max 99.7, pulse 70s, RR 20 MV, SPO2 9196 FiO2 50%. fluid balance -1800. SIMV, or H 20, VT 550, in the 11 L/min, PEEP 5. ABG 7.45, PCO2 39.4, PO2 68.9, FiO2 40%. WBC 11.8, hemoglobin 11.3, platelets 258, sodium 138, potassium 3.7, bicarb 26, creatinine 1.06 SBP 971 01, T-max 98.6, pulse 60s, RR 20, SPO2 96%, FiO2 40% SIMV, RS 20, VT 550, PEEP 5 ABG: pH 7.42, PCO2 39.7, PO2 74.6, FiO2 40%. fluid balance -591 11/15/2018: SBP 71852, T-max 100.0, pulse 60s, RR 20 MV, SPO2 97% FiO2 50%. SIMV, RS 20, VT 550, PEEP 5. ABG: pH 7.42, PCO2 42.1, PO2 65.3, FiO2 50%. 11/14/2018: SBP 196708, pulse 60s, RR 20 MV, SPO2 97 to 50% MV. SIMV, RS 20, VT 550, PEEP 5. ABG pH 7.47, PCO2 36.3, PO2 63.8, FiO2 50%. 11/13/2018: SBP 10387, T-max 100.4, pulse 60s, RR 2033, SPO2 9195 FiO2 40% ABG pH 7.41, PCO2 43.9, PO2 70.8, FiO2 40%, SIMV, VT 550, PEEP 5. 11/12/2018: SBP 32530, T-max 100.6, P 87630, RR 1732, SPO2 92% FiO2 50%. VT 550, RR 16, PEEP 5. ABG: pH 7.30, PCO2 59.6, PO2 85.2, FiO2 45%. (2) Acute alcohol intoxication with alcoholism Qualifiers: Complication of substance-induced condition: with delirium Qualified Cod e(s): F10.221 - Alcohol dependence with intoxication delirium Is this a current diagnosis for this admission?: Yes Plan: Serum alcohol 196 on admission. Agitation controlled witch ativan drip, PRN Haldol, Zyprexa Continue D5 NS, Ativan drip, folate, vitamin B12, thiamine supplement. Monitor for seizures. (3) Acute kidney injury superimposed on chronic kidney disease Is this a current diagnosis for this admission?: Yes Plan: Resovled. Likely prerenal. Creatinine 2.26 on admission. Baseline 0.8. 11/15/2018: WBC 15.1, hemoglobin 12.0, platelets 235, sodium 139, potassium 3.4, bicarb 26, Glaze Wiper 0.9 11/14/2018: WBC 17.7, Hgb 11.8, platelets 212, sodium 138.1, potassium 3.5, bicarb 26, Glaze Wiper 1.1, FBG 128, POC glucose 768867. 11/13/2018: WBC 19.7 up from 15.3, no bandemia, hemoglobin 12.1, platelet 222, s odium 137, potassium 4.1, bicarb 27, Glaze Wiper 1.03, FBG 138, POC glucose 616015, 11/12/2018: WBC 15.3, bands 0, hemoglobin 12.6, platelets 259, sodium 138.5, potassium 4.9, bicarb 29, creatinine 1.43 down from 2.26 on admission, baseline 0.8, Continue IV fluids, monitor volume status, monitor electrolytes, replace as needed. (4) Altered mental status Qualifiers: Altered mental status type: coma Coma depth: Manjula coma 3-8 Coma timing: in the field (EMT or ambulance) Qualified Code(s): R40.2431 - Manjula coma scale score 3-8, in the field [EMT or ambulance] Is this a current diagnosis for this admission?: Yes Plan: As per #2. (5) HTN (hypertension) Qualifiers: Hypertension type: essential hypertension Qualified Code(s): I10 - Essential (primary) hypertension Is this a current diagnosis for this admission?: Yes Plan: Controlled. Likely was exacerbated by agitation. Continue Lasix, lisinopril. Adjust meds as needed. Hold BP meds if MAP less than 65. 11/17/2018: SBP 362911, T-max 99.7, pulse 70s, RR 20 MV, SPO2 9196 FiO2 50%. fluid balance -1800. 11/16/2018: SBP 971 01, T-max 98.6, pulse 60s, RR 20, SPO2 96%, FiO2 40% 11/15/2018: SBP 75516, T-max 100.0, pulse 60s, RR 20 MV, SPO2 97% FiO2 50%. 11/14/2018: SBP 130347, pulse 60s, RR 20 MV, SPO2 97 to 50% MV. 11/13/2018: SBP 55438, T-max 100.4, pulse 60s, RR 2033, SPO2 9195 FiO2 40% 11/12/2018: SBP 31082, T-max 100.6, P 21578, RR 1732, SPO2 92% FiO2 50%. (6) Obesity (BMI 30-39.9) Is this a current diagnosis for this admission?: Yes Plan: Encourage diet and lifestyle modification. (7) Pneumonia Is this a current diagnosis for this admission?: No Plan: Improving. Aspiration versus community acquired pneumonia. Blood cultures negative. 11/13/2018. Tracheal aspirate gram-negative rods. 11/12/2018. Urine culture positive for E. coli pansensitive. Leukocytosis and fever improving Zosyn day 6 (8) UTI (urinary tract infection) Qualifiers: Urinary tract infection type: acute cystitis Is this a current diagnosis for this admission?: Yes Plan: Due to gram-negative rods E. coli pansensitive. 11/13/2018. Tracheal aspirate gram-negative rods. 11/12/2018 urine culture positive for E. coli pansensitive, Enterococcus faecalis, sebaceous marcescens. Zosyn IV day 6 Chlamydia gonorrhea screening negative. (9) COPD (chronic obstructive pulmonary disease) Qualifiers: Emphysema type: unspecified Is this a current diagnosis for this admission?: No Plan: Initially did not seem to be exacerbated. Intubated on admission and started on duo nebs. On physical examination patient seems to have some wheezing. IV steroids, duo nebs, continue mechanical ventilation. Outpatient pulmonology follow-up. (10) Tobacco abuse Is this a current diagnosis for this admission?: No Plan: NicoDerm patch. Provide securities counselor once intubated.
[2018-11-17] MEDS: HALOPERIDOL LACTATE INJ 5 MG/1 ML VIAL IV PRN (13:47)
[2018-11-17] MEDS: FENTANYL CITRATE INJ/PF 100 MCG/2 ML AMPUL IV PRN (13:47)
[2018-11-17] MEDS: METHYLPREDNISOLONE INJ 125 MG/2 ML SDV IV SCH ×2 (13:53→22:06)
[2018-11-17] MEDS: MONTELUKAST SODIUM 10 MG TABLET NG SCH (22:05)
[2018-11-18] MEDS: PIPERACILLIN SODIUM/TAZOBACTAM 3.375 GM in NORMAL SALINE 100 ML IV SCH ×3 (01:19→17:17)
[2018-11-18] MEDS: IPRATROPIUM/ALBUTEROL 0.5-2.5 MG/3 ML AMPUL NEB SCH ×4 (02:03→20:36)
[2018-11-18] MEDS: HALOPERIDOL LACTATE INJ 5 MG/1 ML VIAL IV PRN ×3 (02:08→20:50)
[2018-11-18] MEDS: DEXMEDETOMIDINE IN 0.9 % NACL 400 MCG/100 ML RTUPB IV PRN ×3 (02:58→10:12)
[2018-11-18] MEDS: LORAZEPAM 24 MG/240 ML BAG IV PRN ×4 (04:17→23:12)
[2018-11-18 04:30] LABS: ARTERIAL BLOOD BASE EXCESS 1.5 mmol/L; ARTERIAL BLOOD HCO3 25.8 mmol/L (20-24); ARTERIAL BLOOD O2 SATURATION 93.8 % (94-98); ARTERIAL BLOOD PCO2 39.8 mmHg (35-45); ARTERIAL BLOOD PH 7.43 (7.35-7.45); ARTERIAL BLOOD PO2 66.9 mmHg (80-100)
[2018-11-18] MEDS: HEPARIN SOD (PORCINE) 5,000 UNIT/ML 1 ML SYRINGE SUBCUT SCH ×3 (05:17→21:29)
[2018-11-18] MEDS: METHYLPREDNISOLONE INJ 125 MG/2 ML SDV IV SCH ×3 (05:17→21:29)
[2018-11-18] MEDS: METOCLOPRAMIDE HCL INJ/PF 10 MG/2 ML SDV IV SCH ×4 (05:17→23:11)
[2018-11-18 05:41] LABS: ABSOLUTE LYMPHOCYTES (AUTO) 0.6 10^3/uL (0.5-4.7); ABSOLUTE MONOCYTES (AUTO) 0.2 10^3/uL (0.1-1.4); BASOPHILS % (AUTO) 0.2 % (0-2); HEMATOCRIT 35.6 % (37.9-51.0); LYMPHOCYTES % (AUTO) 6.4 % (13-45); MEAN CORPUSCULAR HEMOGLOBIN 31.9 pg (27.0-33.4); MEAN CORPUSCULAR HGB CONC 33.8 g/dL (32.0-36.0); MEAN CORPUSCULAR VOLUME 95 fl (80-97); MONOCYTES % (AUTO) 2.7 % (3-13); PLATELET COUNT 334 10^3/uL (150-450); RED BLOOD COUNT 3.77 10^6/uL (4.35-5.55); RED CELL DISTRIBUTION WIDTH 13.6 % (11.5-14.0); SEGMENTED NEUTROPHILS % (AUTO) 90.7 % (42-78); TOTAL CELLS COUNTED % (AUTO) 100 %; WHITE BLOOD COUNT 8.9 10^3/uL (4.0-10.5)
[2018-11-18 05:54] LABS: ANION GAP 11 (5-19); BLOOD UREA NITROGEN 20 mg/dL (7-20); CARBON DIOXIDE 25 mmol/L (22-30); CHLORIDE 104 mmol/L (98-107); GLUCOSE 155 mg/dL (75-110); POTASSIUM 4.3 mmol/L (3.6-5.0); SODIUM 140.3 mmol/L (137-145)
[2018-11-18] MEDS: INSULIN LISPRO 100 UNIT/ML 3 ML VIAL SUBCUT SCH ×4 (07:01→21:30)
--- NOTE | 2018-11-18 07:02 | RADIOLOGY REPORT (SQ) ---
CLINICAL HISTORY: resp failure COMPARISON: November 17, 2018. TECHNIQUE: XR CHEST 1 VIEW 11/18/2018 6:00 AM CDT FINDINGS: Cardiac silhouette is normal in size. There is patchy bibasilar airspace disease. There are bilateral small pleural effusions. There is no pneumothorax. There are no acute osseous findings. Endotracheal and nasogastric tubes are unchanged. IMPRESSION: No change
[2018-11-18] MEDS: BUDESONIDE NEB 0.5 MG/2 ML AMPUL NEB SCH ×2 (08:41→20:35)
[2018-11-18] MEDS: FOLIC ACID/VITAMIN B COMP W-C CAPSULE NG SCH (10:06)
[2018-11-18] MEDS: TAMSULOSIN HCL 0.4 MG CAP.SR.24H PO SCH (10:06)
[2018-11-18] MEDS: DOCUSATE SODIUM 100 MG/10 ML UDC NG SCH ×2 (10:11→17:17)
[2018-11-18] MEDS: AMINO AC/PROTEIN HYDR/WHEY PRO 11 GM/45 ML PKT NG SCH ×3 (10:11→17:17)
[2018-11-18] MEDS: FUROSEMIDE 40 MG TABLET NG SCH (10:13)
[2018-11-18] MEDS: OLANZAPINE 5 MG TABLET NG SCH ×2 (10:13→21:29)
[2018-11-18] MEDS: FAMOTIDINE 20 MG TABLET NG SCH ×2 (10:13→21:29)
[2018-11-18] MEDS: THIAMINE HCL 100 MG TABLET NG SCH (10:13)
[2018-11-18] MEDS: BUPROPION HCL 75 MG TABLET NG SCH ×2 (10:13→21:29)
[2018-11-18] MEDS ORDERED: FENTANYL CITRATE INJ/PF 100 MCG/2 ML AMPUL ONE (11:50)
[2018-11-18] MEDS: FENTANYL CITRATE INJ/PF 100 MCG/2 ML AMPUL IV PRN ×2 (12:00→21:27)
--- NOTE | 2018-11-18 12:50 | PDOC PROGRESS REPORT ---
Subjective Progress Note for:: 11/18/18 Subjective:: Remains intubated and sedated Reason For Visit: ACUTE RESP FAILURE, CKD, ETOH INTOX Physical Exam Vital Signs: Temp Pulse Resp BP Pulse Ox 97.9 F 68 20 154/93 H 93 11/18/18 08:00 11/18/18 10:00 11/18/18 10:00 11/18/18 10:00 11/18/18 10:20 Intake & Output 11/17/18 11/18/18 11/19/18 06:59 06:59 06:59 Intake Total 2677 1583 479 Output Total 4210 2210 280 Balance -1533 -457 199 Weight 115.4 kg 115.3 kg General appearance: PRESENT: no acute distress, morbidly obese Head exam: PRESENT: atraumatic, normocephalic Eye exam: PRESENT: conjunctiva pink, EOMI, PERRLA. ABSENT: scleral icterus Ear exam: PRESENT: normal external ear exam Mouth exam: PRESENT: moist, tongue midline Neck exam: ABSENT: carotid bruit, JVD, lymphadenopathy, thyromegaly Respiratory exam: PRESENT: rhonchi, wheezes Cardiovascular exam: PRESENT: irregular rhythm Pulses: PRESENT: normal radial pulses Vascular exam: PRESENT: normal capillary refill GI/Abdominal exam: PRESENT: normal bowel sounds, soft. ABSENT: distended, guarding, mass, organolmegaly, rebound, tenderness Rectal exam: PRESENT: deferred Extremities exam: PRESENT: full ROM. ABSENT: calf tenderness, clubbing, pedal edema Neurological exam: ABSENT: awake Psychiatric exam: PRESENT: normal mood Skin exam: PRESENT: dry, warm Results Laboratory Results: 11/18/18 04:55 11/18/18 04:55 11/18/18 11/18/18 11/18/18 03:50 04:55 04:55 WBC 8.9 RBC 3.77 L Hgb 12.0 L Hct 35.6 L MCV 95 MCH 31.9 MCHC 33.8 RDW 13.6 Plt Count 334 Seg Neutrophils % 90.7 H Lymphocytes % 6.4 L Monocytes % 2.7 L Eosinophils % 0.0 Basophils % 0.2 Absolute Neutrophils 8.0 Absolute Lymphocytes 0.6 Absolute Monocytes 0.2 Absolute Eosinophils 0.0 Absolute Basophils 0.0 Carbonic Acid 1.20 HCO3/H2CO3 Ratio 21:1 ABG pH 7.43 ABG pCO2 39.8 ABG pO2 66.9 L ABG HCO3 25.8 H ABG O2 Saturation 93.8 L ABG Base Excess 1.5 FiO2 55% Sodium 140.3 Potassium 4.3 Chloride 104 Carbon Dioxide 25 Anion Gap 11 BUN 20 Creatinine 1.05 Est GFR ( Amer) > 60 Est GFR (Non-Af Amer) > 60 Glucose 155 H Calcium 9.0 Magnesium 2.2 11/12/18 10:00 Blood Blood Culture - Final NO GROWTH IN 5 DAYS 11/12/18 10:17 Blood Blood Culture - Final NO GROWTH IN 5 DAYS 11/10/18 11/10/18 11/10/18 23:20 23:20 23:20 Creatine Kinase 118 CK-MB (CK-2) 4.39 Troponin I 0.078 NT-Pro-B Natriuret Pep 426 11/11/18 11/11/18 11/11/18 05:00 05:00 11:12 Creatine Kinase 109 103 CK-MB (CK-2) 3.94 Troponin I 0.097 NT-Pro-B Natriuret Pep 11/11/18 11/14/18 11:12 04:08 Creatine Kinase CK-MB (CK-2) 3.86 Troponin I 0.067 NT-Pro-B Natriuret Pep 200 Impressions: Cervical Spine CT 11/10/18 22:06 IMPRESSION: No acute cervical spinal fracture is identified. Multilevel degenerative change Head CT 11/10/18 22:06 IMPRESSION: No acute intracranial abnormality is identified. Chest X-Ray 11/18/18 06:00 IMPRESSION: No change Assessment & Plan - Diagnosis (1) Acute alcohol intoxication with alcoholism Qualifiers: Complication of substance-induced condition: with delirium Qualified Code(s): F10.221 - Alcohol dependence with intoxication delirium Is this a current diagnosis for this admission?: Yes Plan: Stable no seizures (2) Acute and chronic respiratory failure with hypercapnia Is this a current diagnosis for this admission?: Yes Plan: Oxygenation and ventilation requirements decreasing (3) COPD (chronic obstructive pulmonary disease) Qualifiers: Emphysema type: unspecified Is this a current diagnosis for this admission?: No Plan: Long acting beta agonist plus long-acting cholinergic would not add a inhaled corticosteroid at this time (4) Morbid obesity with BMI of 40.0-44.9, adult Is this a current diagnosis for this admission?: Yes Plan: Consider nutritional consult - Time Total Critical Time (Minutes): 38 Inpatient Scribe Statement - . Entered by Jessica Serra, acting as scribe for .
[2018-11-18] MEDS ORDERED: PROPOFOL 1,000 MG/100 ML INFUS..BTL IV ONE (13:49)
[2018-11-18] MEDS: PROPOFOL 1,000 MG/100 ML INFUS..BTL IV PRN ×2 (14:00→19:37)
--- NOTE | 2018-11-18 14:00 | RADIOLOGY REPORT (SQ) ---
EXAM DESCRIPTION: CHEST SINGLE VIEW COMPLETED DATE/TIME: 11/18/2018 1:52 pm REASON FOR STUDY: Re-confirm ETT and OG tube placement COMPARISON: Earlier the same day. NUMBER OF VIEWS: One view. TECHNIQUE: Single frontal radiographic image of the chest acquired. LIMITATIONS: None. FINDINGS: LUNGS AND PLEURA: Stable appearance. MEDIASTINUM AND HILAR STRUCTURES: Stable heart size and mediastinal structures. HEART AND VASCULAR STRUCTURES: Stable appearance. SUPPORT DEVICES: Endotracheal tube is high in position measured at 7.4 cm above the ruddy. Not sign ificantly changed from the earlier film. NG tube remains in place. Tip is not seen but lies below t he GE junction. BONES: No acute findings. OTHER: No other significant finding. IMPRESSION: Support lines and tubes appear grossly unchanged. Endotracheal tube lies 7.4 cm above t he ruddy. TECHNICAL DOCUMENTATION: JOB ID: [id number] [employer]- All Rights Reserved Reading location - IP/workstation name: [email or web address]
--- NOTE | 2018-11-18 15:11 | RADIOLOGY REPORT (SQ) ---
EXAM DESCRIPTION: CHEST SINGLE VIEW COMPLETED DATE/TIME: 11/18/2018 3:02 pm REASON FOR STUDY: Re-confirm ETT and OG tube placement COMPARISON: Earlier the same day. NUMBER OF VIEWS: One view. TECHNIQUE: Single frontal radiographic image of the chest acquired. LIMITATIONS: None. FINDINGS: LUNGS AND PLEURA: Stable appearance. MEDIASTINUM AND HILAR STRUCTURES: Stable heart size and mediastinal structures. HEART AND VASCULAR STRUCTURES: Stable appearance. SUPPORT DEVICES: The endotracheal tube is been advanced. Tip now lies 3.4 cm above the ruddy. NG t ube remains in place. Tip is well below the GE junction. BONES: No acute findings. OTHER: No other significant finding. IMPRESSION: Interval advancement of the endotracheal tube as described. NG tube remains in satisfac tory position. No other significant changes. TECHNICAL DOCUMENTATION: JOB ID: [id number] [employer]- All Rights Reserved Reading location - IP/workstation name: [email or web address]
[2018-11-18] MEDS: MONTELUKAST SODIUM 10 MG TABLET NG SCH (21:29)
[2018-11-19] MEDS: PROPOFOL 1,000 MG/100 ML INFUS..BTL IV PRN ×8 (00:21→23:32)
[2018-11-19] MEDS: PIPERACILLIN SODIUM/TAZOBACTAM 3.375 GM in NORMAL SALINE 100 ML IV SCH (01:07)
[2018-11-19] MEDS: IPRATROPIUM/ALBUTEROL 0.5-2.5 MG/3 ML AMPUL NEB SCH ×4 (01:38→19:49)
[2018-11-19] MEDS: LORAZEPAM 24 MG/240 ML BAG IV PRN ×2 (04:21→12:23)
[2018-11-19 04:47] LABS: ANION GAP 9 (5-19); BLOOD UREA NITROGEN 27 mg/dL (7-20); CALCIUM 9.1 mg/dL (8.4-10.2); CARBON DIOXIDE 31 mmol/L (22-30); CHLORIDE 104 mmol/L (98-107); GLUCOSE 142 mg/dL (75-110); POTASSIUM 3.4 mmol/L (3.6-5.0); SODIUM 144.3 mmol/L (137-145)
[2018-11-19] MEDS: METOCLOPRAMIDE HCL INJ/PF 10 MG/2 ML SDV IV SCH (05:27)
[2018-11-19] MEDS: METHYLPREDNISOLONE INJ 125 MG/2 ML SDV IV SCH ×3 (05:27→22:16)
[2018-11-19] MEDS: HEPARIN SOD (PORCINE) 5,000 UNIT/ML 1 ML SYRINGE SUBCUT SCH ×3 (05:27→22:20)
[2018-11-19 06:29] LABS: ARTERIAL BLOOD BASE EXCESS 4.2 mmol/L; ARTERIAL BLOOD H2CO3 1.09 mmol/L (1.05-1.35); ARTERIAL BLOOD HCO3 27.5 mmol/L (20-24); ARTERIAL BLOOD O2 SATURATION 96.9 % (94-98); ARTERIAL BLOOD PCO2 36.2 mmHg (35-45); ARTERIAL BLOOD PO2 81.5 mmHg (80-100); ARTERIAL BLOOD TOTAL CO2 28.6 mmol/L (23-27)
[2018-11-19 06:30] LABS: ARTERIAL BLOOD FIO2 35%
[2018-11-19] MEDS: INSULIN LISPRO 100 UNIT/ML 3 ML VIAL SUBCUT SCH ×4 (07:12→22:24)
[2018-11-19] MEDS: BUDESONIDE NEB 0.5 MG/2 ML AMPUL NEB SCH ×2 (08:48→19:49)
[2018-11-19] MEDS ORDERED: POTASSIUM CHLORIDE 20 MEQ/50 ML RTU IV SCH (09:00)
[2018-11-19] MEDS: FAMOTIDINE 20 MG TABLET NG SCH ×2 (09:27→22:17)
[2018-11-19] MEDS: THIAMINE HCL 100 MG TABLET NG SCH (09:27)
[2018-11-19] MEDS: DOCUSATE SODIUM 100 MG/10 ML UDC NG SCH ×2 (09:27→17:22)
[2018-11-19] MEDS: OLANZAPINE 5 MG TABLET NG SCH (09:27)
[2018-11-19] MEDS: FOLIC ACID/VITAMIN B COMP W-C CAPSULE NG SCH (09:28)
[2018-11-19] MEDS: TAMSULOSIN HCL 0.4 MG CAP.SR.24H PO SCH (09:28)
[2018-11-19] MEDS: FUROSEMIDE 40 MG TABLET NG SCH (09:28)
--- NOTE | 2018-11-19 09:34 | RADIOLOGY REPORT (SQ) ---
EXAM DESCRIPTION: CHEST SINGLE VIEW COMPLETED DATE/TIME: 11/19/2018 9:22 am REASON FOR STUDY: resp failure COMPARISON: 11/18/2018 NUMBER OF VIEWS: One view. TECHNIQUE: Single frontal radiographic image of the chest acquired. LIMITATIONS: None. FINDINGS: LUNGS AND PLEURA: Persistent basilar airspace disease. There has been slight progression in the left lower lobe. No other interval change. MEDIASTINUM AND HILAR STRUCTURES: Stable heart size and mediastinal structures. HEART AND VASCULAR STRUCTURES: Stable appearance. SUPPORT DEVICES: Appropriate location without change. BONES: No acute findings. OTHER: No other significant finding. IMPRESSION: Slight increase in left lower lobe airspace disease either atelectasis or pneumonia. TECHNICAL DOCUMENTATION: JOB ID: [id number] [employer]- All Rights Reserved Reading location - IP/workstation name: [email or web address]
[2018-11-19] MEDS: AMINO AC/PROTEIN HYDR/WHEY PRO 11 GM/45 ML PKT NG SCH ×3 (09:55→17:23)
[2018-11-19] MEDS: BUPROPION HCL 75 MG TABLET NG SCH ×2 (09:55→23:09)
[2018-11-19] MEDS: POTASSIUM CHLORIDE 20 MEQ PACKET NG SCH ×2 (09:55→14:44)
[2018-11-19] MEDS ORDERED: POTASSIUM CHLORIDE 10 MEQ CAPSULE.ER PO SCH (10:00)
[2018-11-19] MEDS ORDERED: LORAZEPAM 24 MG/ D5W 240 ML IV PRN (12:22)
--- NOTE | 2018-11-19 12:55 | PDOC PROGRESS REPORT ---
Subjective Progress Note for:: 11/18/18 Subjective:: KAMERON TRUJILLO is a 58 year old male with a past medical history of alcohol abuse, hypertension, hepatic cirrhosis, chronic kidney disease, and COPD with oxygen dependence. Patient presents to the emergency department via EMS with altered mental status and subsequently history is obtained by the record. He is intubated by emergency department provider for a GCS of 3 with hypoxia and unprotected airway. Patient was noted by his at approximately 7:30 PM com plaining of feeling tired and found approximately 15 minutes later unresponsive. Patient's believed he had been drinking excessively. ABG reveals hypoxic and hypercapnic respiratory failure, chemistry reveals a potassium 7.5 without peak T waves, creatinine of 2.2, serum alcohol is 196. Family is unavailable for interview. Reason For Visit: ACUTE RESP FAILURE, CKD, ETOH INTOX Physical Exam Vital Signs: Temp Pulse Resp BP Pulse Ox 98.1 F 104 H 20 154/83 H 91 L 11/18/18 12:00 11/18/18 13:18 11/18/18 14:00 11/18/18 13:40 11/18/18 14:00 Intake & Output 11/17/18 11/18/18 11/19/18 06:59 06:59 06:59 Intake Total 2387 1583 567 Output Total 1010 4890 630 Balance -1533 -627 -63 Weight 115.4 kg 115.3 kg General appearance: PRESENT: no acute distress Eye exam: PRESENT: conjunctiva pink Neck exam: ABSENT: carotid bruit, JVD, lymphadenopathy, thyromegaly Respiratory exam: PRESENT: clear to auscultation abi. ABSENT: rales, rhonchi, wheezes Cardiovascular exam: PRESENT: RRR. ABSENT: diastolic murmur, rubs, systolic murmur Results Laboratory Results: 11/18/18 04:55 11/18/18 04:55 11/18/18 11/18/18 11/18/18 03:50 04:55 04:55 WBC 8.9 RBC 3.77 L Hgb 12.0 L Hct 35.6 L MCV 95 MCH 31.9 MCHC 33.8 RDW 13.6 Plt Count 334 Seg Neutrophils % 90.7 H Lymphocytes % 6.4 L Monocytes % 2.7 L Eosinophils % 0.0 Basophils % 0.2 Absolute Neutrophils 8.0 Absolute Lymphocytes 0.6 Absolute Monocytes 0.2 Absolute Eosinophils 0.0 Absolute Basophils 0.0 Carbonic Acid 1.20 HCO3/H2CO3 Ratio 21:1 ABG pH 7.43 ABG pCO2 39.8 ABG pO2 66.9 L ABG HCO3 25.8 H ABG O2 Saturation 93.8 L ABG Base Excess 1.5 FiO2 55% Sodium 140.3 Potassium 4.3 Chloride 104 Carbon Dioxide 25 Anion Gap 11 BUN 20 Creatinine 1.05 Est GFR ( Amer) > 60 Est GFR (Non-Af Amer) > 60 Glucose 155 H Calcium 9.0 Magnesium 2.2 11/10/18 11/10/18 11/10/18 23:20 23:20 23:20 Creatine Kinase 118 CK-MB (CK-2) 4.39 Troponin I 0.078 NT-Pro-B Natriuret Pep 426 11/11/18 11/11/18 11/11/18 05:00 05:00 11:12 Creatine Kinase 109 103 CK-MB (CK-2) 3.94 Troponin I 0.097 NT-Pro-B Natriuret Pep 11/11/18 11/14/18 11:12 04:08 Creatine Kinase CK-MB (CK-2) 3.86 Troponin I 0.067 NT-Pro-B Natriuret Pep 200 Impressions: Cervical Spine CT 11/10/18 22:06 IMPRESSION: No acute cervical spinal fracture is identified. Multilevel degenerative change Head CT 11/10/18 22:06 IMPRESSION: No acute intracranial abnormality is identified. Chest X-Ray 11/18/18 13:23 IMPRESSION: Support lines and tubes appear grossly unchanged. Endotracheal tube lies 7.4 cm above the ruddy. Assessment and Plan - Diagnosis (1) Acute alcohol intoxication with alcoholism Qualifiers: Complication of substance-induced condition: with delirium Qualified Code(s): F10.221 - Alcohol dependence with intoxication delirium Is this a current diagnosis for this admission?: Yes Plan: Which could explain his acute encephalopathy. (2) Acute and chronic respiratory failure with hypercapnia Is this a current diagnosis for this admission?: Yes Plan: Patient is emergently intubated to protect his airway. His potential for extubation today. (3) Acute kidney injury superimposed on chronic kidney disease Is this a current diagnosis for this admission?: Yes Plan: Improving. (4) Alcohol abuse Is this a current diagnosis for this admission?: Yes Plan: That will be counseled to quit drinking. (5) Altered mental status Qualifiers: Altered mental status type: coma Coma depth: Sunburst coma 3-8 Coma timing: in the field (EMT or ambulance) Qualified Code(s): R40.2431 - Manjula coma scale score 3-8, in the field [EMT or ambulance] Is this a current diagnosis for this admission?: Yes Plan: Acute encephalopathy secondary to alcohol intoxication. (6) Hyperkalemia Is this a current diagnosis for this admission?: Yes Plan: Has resolved (7) Obesity (BMI 30-39.9) Is this a current diagnosis for this admission?: Yes Plan: Encourage diet and lifestyle modification.
--- NOTE | 2018-11-19 12:57 | PDOC PROGRESS REPORT ---
Subjective Progress Note for:: 11/19/18 Subjective:: Patient seen and examined at bedside. Patient is potential for extubation. Yesterday after weaning trial, patient became tachypneic in the range of 40/min. Most probably it is due to agitation. I switched his olanzapine to Geodon 20 mg p.o. twice daily Reason For Visit: ACUTE RESP FAILURE, CKD, ETOH INTOX Physical Exam Vital Signs: Temp Pulse Resp BP Pulse Ox 99.1 F 78 20 136/75 H 96 11/19/18 08:00 11/19/18 10:00 11/19/18 11:40 11/19/18 11:40 11/19/18 12:03 Intake & Output 11/18/18 11/19/18 11/20/18 06:59 06:59 06:59 Intake Total 1583 1848 406 Output Total 2211 7820 800 Balance -627 -682 -394 Weight 115.3 kg 111.8 kg General appearance: PRESENT: no acute distress Head exam: PRESENT: atraumatic Eye exam: PRESENT: conjunctiva pink Neck exam: ABSENT: carotid bruit, JVD, lymphadenopathy, thyromegaly Pulses: PRESENT: normal dorsalis pedis pul GI/Abdominal exam: PRESENT: normal bowel sounds, soft. ABSENT: distended, guarding, mass, organolmegaly, rebound, tenderness Results Laboratory Results: 11/18/18 04:55 11/19/18 03:49 11/19/18 11/19/18 03:49 05:55 Carbonic Acid 1.09 HCO3/H2CO3 Ratio 25:1 ABG pH 7.50 H ABG pCO2 36.2 ABG pO2 81.5 ABG HCO3 27.5 H ABG O2 Saturation 96.9 ABG Base Excess 4.2 FiO2 35% Sodium 144.3 Potassium 3.4 L Chloride 104 Carbon Dioxide 31 H Anion Gap 9 BUN 27 H Creatinine 1.18 Est GFR ( Amer) > 60 Est GFR (Non-Af Amer) > 60 Glucose 142 H Calcium 9.1 Magnesium 2.6 H 11/10/18 11/10/18 11/10/18 23:20 23:20 23:20 Creatine Kinase 118 CK-MB (CK-2) 4.39 Troponin I 0.078 NT-Pro-B Natriuret Pep 426 11/11/18 11/11/18 11/11/18 05:00 05:00 11:12 Creatine Kinase 109 103 CK-MB (CK-2) 3.94 Troponin I 0.097 NT-Pro-B Natriuret Pep 11/11/18 11/14/18 11:12 04:08 Creatine Kinase CK-MB (CK-2) 3.86 Troponin I 0.067 NT-Pro-B Natriuret Pep 200 Impressions: Cervical Spine CT 11/10/18 22:06 IMPRESSION: No acute cervical spinal fracture is identified. Multilevel degenerative change Head CT 11/10/18 22:06 IMPRESSION: No acute intracranial abnormality is identified. Chest X-Ray 11/19/18 07:38 IMPRESSION: Slight increase in left lower lobe airspace disease either atelectasis or pneumonia. Assessment and Plan - Diagnosis (1) Acute alcohol intoxication with alcoholism Qualifiers: Complication of substance-induced condition: with delirium Qualified Code(s): F10.221 - Alcohol dependence with intoxication delirium Is this a current diagnosis for this admission?: Yes Plan: Which could explain his altered mental status. (2) Acute and chronic respiratory failure with hypercapnia Is this a current diagnosis for this admission?: Yes Plan: Patient emergently intubated to protect his airway. (3) Acute kidney injury superimposed on chronic kidney disease Is this a current diagnosis for this admission?: Yes Plan: Improving. (4) Alcohol abuse Is this a current diagnosis for this admission?: Yes Plan: I will counseling encourage the patient to remain sober. (5) Altered mental status Qualifiers: Altered mental status type: coma Coma depth: [place] coma 3-8 Coma timing: in the field (EMT or ambulance) Qualified Code(s): R40.2431 - [place] coma scale score 3-8, in the field [EMT or ambulance] Is this a current diagnosis for this admission?: Yes Plan: Acute encephalopathy secondary to alcohol intoxication. (6) Hyperkalemia Is this a current diagnosis for this admission?: Yes Plan: Resolved (7) Obesity (BMI 30-39.9) Is this a current diagnosis for this admission?: Yes Plan: Encourage diet and lifestyle modification.
[2018-11-19] MEDS: IMIPENEM/CILASTATIN SODIUM 500 MG in NORMAL SALINE 100 ML IV SCH ×3 (14:44→23:10)
[2018-11-19] MEDS: PROMETHAZINE HCL 25 MG TABLET NG SCH ×3 (14:44→23:37)
--- NOTE | 2018-11-19 14:50 | PDOC PROGRESS REPORT ---
Subjective Progress Note for:: 11/19/18 Subjective:: Intubated and sedated but arousable Reason For Visit: ACUTE RESP FAILURE, CKD, ETOH INTOX Physical Exam Vital Signs: Temp Pulse Resp BP Pulse Ox 99.1 F 88 20 156/89 H 94 11/19/18 08:00 11/19/18 08:08 11/19/18 08:00 11/19/18 06:40 11/19/18 08:00 Intake & Output 11/18/18 11/19/18 11/20/18 06:59 06:59 06:59 Intake Total 1583 1848 Output Total 2216 3820 725 Balance -627 -682 -725 Weight 115.3 kg 111.8 kg General appearance: PRESENT: no acute distress, disheveled, morbidly obese Head exam: PRESENT: atraumatic, normocephalic Eye exam: PRESENT: conjunctiva pale, EOMI. ABSENT: nystagmus, scleral icterus Mouth exam: PRESENT: dry mucosa, neck supple, tongue midline, other - ET tube Neck exam: ABSENT: carotid bruit, full ROM, JVD, lymphadenopathy, meningismus, tenderness, thyromegaly, tracheal deviation, tracheostomy, other Respiratory exam: PRESENT: decreased breath sounds, prolonged expiratory phas, rales, rhonchi, unlabored. ABSENT: retraction, stridor, tachypnea Cardiovascular exam: PRESENT: RRR, +S1, +S2 Pulses: PRESENT: normal radial pulses GI/Abdominal exam: PRESENT: soft. ABSENT: mass Gentrourinary exam: PRESENT: indwelling catheter Extremities exam: PRESENT: pedal edema. ABSENT: calf tenderness, clubbing, full ROM, joint swelling Musculoskeletal exam: ABSENT: ambulatory, deformity, dislocation Neurological exam: PRESENT: altered Psychiatric exam: PRESENT: flat affect Skin exam: PRESENT: dry, warm Results Laboratory Results: 11/18/18 04:55 11/19/18 03:49 11/19/18 11/19/18 03:49 05:55 Carbonic Acid 1.09 HCO3/H2CO3 Ratio 25:1 ABG pH 7.50 H ABG pCO2 36.2 ABG pO2 81.5 ABG HCO3 27.5 H ABG O2 Saturation 96.9 ABG Base Excess 4.2 FiO2 35% Sodium 144.3 Potassium 3.4 L Chloride 104 Carbon Dioxide 31 H Anion Gap 9 BUN 27 H Creatinine 1.18 Est GFR ( Amer) > 60 Est GFR (Non-Af Amer) > 60 Glucose 142 H Calcium 9.1 Magnesium 2.6 H 11/10/18 11/10/18 11/10/18 23:20 23:20 23:20 Creatine Kinase 118 CK-MB (CK-2) 4.39 Troponin I 0.078 NT-Pro-B Natriuret Pep 426 11/11/18 11/11/18 11/11/18 05:00 05:00 11:12 Creatine Kinase 109 103 CK-MB (CK-2) 3.94 Troponin I 0.097 NT-Pro-B Natriuret Pep 11/11/18 11/14/18 11:12 04:08 Creatine Kinase CK-MB (CK-2) 3.86 Troponin I 0.067 NT-Pro-B Natriuret Pep 200 Impressions: Cervical Spine CT 11/10/18 22:06 IMPRESSION: No acute cervical spinal fracture is identified. Multilevel degenerative change Head CT 11/10/18 22:06 IMPRESSION: No acute intracranial abnormality is identified. Chest X-Ray 11/18/18 14:06 IMPRESSION: Interval advancement of the endotracheal tube as described. NG tube remains in satisfactory position. No other significant changes. Assessment & Plan - Diagnosis (1) Acute alcohol intoxication with alcoholism Qualifiers: Complication of substance-induced condition: with delirium Qualified Code(s): F10.221 - Alcohol dependence with intoxication delirium Is this a current diagnosis for this admission?: Yes Plan: Evidence of DTs at this time (2) Acute and chronic respiratory failure with hypercapnia Is this a current diagnosis for this admission?: Yes Plan: Continues to improve approaching baseline (3) Obesity (BMI 30-39.9) Is this a current diagnosis for this admission?: Yes Plan: Consider nutritional consult (4) COPD (chronic obstructive pulmonary disease) Qualifiers: Emphysema type: unspecified Is this a current diagnosis for this admission?: Yes Plan: Long-acting beta agonist plus long-acting cholinergic would not add a inhaled corticosteroids at this time (5) Pleural effusion Is this a current diagnosis for this admission?: Yes Plan: Thoracentesis ? - Time Total Critical Time (Minutes): 45
--- NOTE | 2018-11-19 15:21 | PDOC PROGRESS REPORT ---
Subjective Progress Note for:: 11/19/18 Subjective:: Remains intubated and sedated Reason For Visit: ACUTE RESP FAILURE, CKD, ETOH INTOX Physical Exam Vital Signs: Temp Pulse Resp BP Pulse Ox 98.4 F 81 14 159/89 H 99 11/19/18 12:00 11/19/18 14:00 11/19/18 14:00 11/19/18 14:00 11/19/18 14:00 Intake & Output 11/18/18 11/19/18 11/20/18 06:59 06:59 06:59 Intake Total 1583 1848 429 Output Total 2210 5340 1400 Balance -627 -682 -971 Weight 115.3 kg 111.8 kg General appearance: PRESENT: no acute distress, obese, well-developed, well- nourished Head exam: PRESENT: atraumatic, normocephalic Eye exam: PRESENT: conjunctiva pink, EOMI, PERRLA. ABSENT: scleral icterus Ear exam: PRESENT: normal external ear exam Mouth exam: PRESENT: moist, tongue midline Neck exam: ABSENT: carotid bruit, JVD, lymphadenopathy, thyromegaly Respiratory exam: PRESENT: rhonchi, wheezes Cardiovascular exam: PRESENT: irregular rhythm Pulses: PRESENT: normal dorsalis pedis pul Vascular exam: PRESENT: normal capillary refill GI/Abdominal exam: PRESENT: normal bowel sounds, soft. ABSENT: distended, guarding, mass, organolmegaly, rebound, tenderness Rectal exam: PRESENT: deferred Extremities exam: PRESENT: full ROM. ABSENT: calf tenderness, clubbing, pedal edema Neurological exam: ABSENT: awake Skin exam: PRESENT: dry, intact, warm. ABSENT: cyanosis, rash Results Laboratory Results: 11/18/18 04:55 11/19/18 03:49 11/19/18 11/19/18 03:49 05:55 Carbonic Acid 1.09 HCO3/H2CO3 Ratio 25:1 ABG pH 7.50 H ABG pCO2 36.2 ABG pO2 81.5 ABG HCO3 27.5 H ABG O2 Saturation 96.9 ABG Base Excess 4.2 FiO2 35% Sodium 144.3 Potassium 3.4 L Chloride 104 Carbon Dioxide 31 H Anion Gap 9 BUN 27 H Creatinine 1.18 Est GFR ( Amer) > 60 Est GFR (Non-Af Amer) > 60 Glucose 142 H Calcium 9.1 Magnesium 2.6 H 11/10/18 11/10/18 11/10/18 23:20 23:20 23:20 Creatine Kinase 118 CK-MB (CK-2) 4.39 Troponin I 0.078 NT-Pro-B Natriuret Pep 426 11/11/18 11/11/18 11/11/18 05:00 05:00 11:12 Creatine Kinase 109 103 CK-MB (CK-2) 3.94 Troponin I 0.097 NT-Pro-B Natriuret Pep 11/11/18 11/14/18 11:12 04:08 Creatine Kinase CK-MB (CK-2) 3.86 Troponin I 0.067 NT-Pro-B Natriuret Pep 200 Impressions: Cervical Spine CT 11/10/18 22:06 IMPRESSION: No acute cervical spinal fracture is identified. Multilevel degenerative change Head CT 11/10/18 22:06 IMPRESSION: No acute intracranial abnormality is identified. Chest X-Ray 11/19/18 07:38 IMPRESSION: Slight increase in left lower lobe airspace disease either atelectasis or pneumonia. Assessment & Plan - Diagnosis (1) Acute and chronic respiratory failure with hypercapnia Is this a current diagnosis for this admission?: Yes Plan: Oxygenation and ventilation requirements decreasing (2) COPD (chronic obstructive pulmonary disease) Qualifiers: Emphysema type: unspecified Is this a current diagnosis for this admission?: Yes Plan: Long acting beta agonist plus long-acting cholinergic would not add a inhaled corticosteroid at this time (3) Morbid obesity with BMI of 40.0-44.9, adult Is this a current diagnosis for this admission?: Yes Plan: Consider nutritional consult - Time Total Critical Time (Minutes): 50 Inpatient Scribe Statement - . Entered by Jessica Serra, acting as scribe for .
[2018-11-19] MEDS: MONTELUKAST SODIUM 10 MG TABLET NG SCH (22:17)
[2018-11-19] MEDS: ZIPRASIDONE HCL 20 MG CAPSULE PO SCH (22:17)
[2018-11-19] MEDS ORDERED: BUPROPION HCL 75 MG TABLET ONE (22:42)
[2018-11-20] MEDS: IPRATROPIUM/ALBUTEROL 0.5-2.5 MG/3 ML AMPUL NEB SCH ×4 (01:45→19:19)
[2018-11-20] MEDS: PROPOFOL 1,000 MG/100 ML INFUS..BTL IV PRN ×2 (02:17→09:26)
[2018-11-20 04:34] LABS: ABSOLUTE LYMPHOCYTES (AUTO) 0.6 10^3/uL (0.5-4.7); ABSOLUTE MONOCYTES (AUTO) 0.4 10^3/uL (0.1-1.4); ABSOLUTE NEUT (AUTO) 6.8 10^3/uL (1.7-8.2); BASOPHILS % (AUTO) 0.2 % (0-2); HEMATOCRIT 35.4 % (37.9-51.0); HEMOGLOBIN 12.2 g/dL (13.5-17.0); MEAN CORPUSCULAR HEMOGLOBIN 32.4 pg (27.0-33.4); MEAN CORPUSCULAR HGB CONC 34.4 g/dL (32.0-36.0); MEAN CORPUSCULAR VOLUME 94 fl (80-97); MONOCYTES % (AUTO) 5.5 % (3-13); PLATELET COUNT 414 10^3/uL (150-450); RED BLOOD COUNT 3.76 10^6/uL (4.35-5.55); RED CELL DISTRIBUTION WIDTH 13.9 % (11.5-14.0); SEGMENTED NEUTROPHILS % (AUTO) 86.3 % (42-78); TOTAL CELLS COUNTED % (AUTO) 100 %; WHITE BLOOD COUNT 7.9 10^3/uL (4.0-10.5)
[2018-11-20 04:48] LABS: ARTERIAL BLOOD H2CO3 1.19 mmol/L (1.05-1.35); ARTERIAL BLOOD HCO3 28.8 mmol/L (20-24); ARTERIAL BLOOD PCO2 39.4 mmHg (35-45); ARTERIAL BLOOD PH 7.48 (7.35-7.45); ARTERIAL BLOOD PO2 75.5 mmHg (80-100)
[2018-11-20 04:49] LABS: ANION GAP 10 (5-19); BLOOD UREA NITROGEN 33 mg/dL (7-20); CALCIUM 9.3 mg/dL (8.4-10.2); CARBON DIOXIDE 25 mmol/L (22-30); CHLORIDE 107 mmol/L (98-107); GLUCOSE 135 mg/dL (75-110); POTASSIUM 4.4 mmol/L (3.6-5.0); SODIUM 142.3 mmol/L (137-145)
[2018-11-20 04:56] LABS: ARTERIAL BLOOD FIO2 30%
[2018-11-20] MEDS: HEPARIN SOD (PORCINE) 5,000 UNIT/ML 1 ML SYRINGE SUBCUT SCH ×3 (05:00→22:28)
[2018-11-20] MEDS: METHYLPREDNISOLONE INJ 125 MG/2 ML SDV IV SCH ×3 (05:00→22:29)
[2018-11-20] MEDS: IMIPENEM/CILASTATIN SODIUM 500 MG in NORMAL SALINE 100 ML IV SCH ×3 (05:01→17:20)
[2018-11-20] MEDS: PROMETHAZINE HCL 25 MG TABLET NG SCH ×4 (05:01→23:55)
[2018-11-20] MEDS: BUDESONIDE NEB 0.5 MG/2 ML AMPUL NEB SCH ×2 (08:22→19:26)
[2018-11-20] MEDS ORDERED: METOPROLOL TARTRATE 100 MG TABLET PO ONE (08:50)
[2018-11-20] MEDS: INSULIN LISPRO 100 UNIT/ML 3 ML VIAL SUBCUT SCH ×4 (08:57→23:31)
[2018-11-20] MEDS: FAMOTIDINE 20 MG TABLET NG SCH ×2 (09:27→22:26)
[2018-11-20] MEDS: TAMSULOSIN HCL 0.4 MG CAP.SR.24H PO SCH (09:27)
[2018-11-20] MEDS: DOCUSATE SODIUM 100 MG/10 ML UDC NG SCH ×2 (09:27→17:11)
[2018-11-20] MEDS: FOLIC ACID/VITAMIN B COMP W-C CAPSULE NG SCH (09:27)
[2018-11-20] MEDS: FUROSEMIDE 40 MG TABLET NG SCH (09:27)
[2018-11-20] MEDS: ZIPRASIDONE HCL 20 MG CAPSULE PO SCH ×2 (09:27→22:26)
[2018-11-20] MEDS: AMINO AC/PROTEIN HYDR/WHEY PRO 11 GM/45 ML PKT NG SCH ×2 (09:27→14:11)
[2018-11-20] MEDS: THIAMINE HCL 100 MG TABLET NG SCH (09:27)
[2018-11-20] MEDS: BUPROPION HCL 75 MG TABLET NG SCH ×2 (09:27→22:26)
--- NOTE | 2018-11-20 11:51 | PDOC PROGRESS REPORT ---
Subjective Progress Note for:: 11/20/18 Subjective:: Remains intubated and sedated, will plan for extubation today Reason For Visit: ACUTE RESP FAILURE, CKD, ETOH INTOX Physical Exam Vital Signs: Temp Pulse Resp BP Pulse Ox 99.9 F 88 20 159/94 H 96 11/20/18 08:00 11/20/18 10:00 11/20/18 10:00 11/20/18 10:00 11/20/18 10:00 Intake & Output 11/19/18 11/20/18 11/21/18 06:59 06:59 06:59 Intake Total 1848 1366 100 Output Total 2530 2275 330 Balance -682 -909 -230 Weight 111.8 kg 113.4 kg General appearance: PRESENT: no acute distress, obese, well-developed, well- nourished Head exam: PRESENT: atraumatic, normocephalic Eye exam: PRESENT: conjunctiva pink, EOMI, PERRLA. ABSENT: scleral icterus Ear exam: PRESENT: normal external ear exam Mouth exam: PRESENT: moist, tongue midline, other - ET Tube Respiratory exam: PRESENT: clear to auscultation abi. ABSENT: rales, rhonchi, wheezes Cardiovascular exam: PRESENT: irregular rhythm. ABSENT: diastolic murmur, rubs, systolic murmur Pulses: PRESENT: normal dorsalis pedis pul GI/Abdominal exam: PRESENT: normal bowel sounds, soft Rectal exam: PRESENT: deferred Extremities exam: PRESENT: full ROM. ABSENT: calf tenderness, clubbing, pedal edema Neurological exam: PRESENT: awake Skin exam: PRESENT: dry, intact, warm. ABSENT: cyanosis, rash Results Laboratory Results: 11/20/18 04:14 11/20/18 04:14 11/20/18 11/20/18 11/20/18 04:00 04:14 04:14 WBC 7.9 RBC 3.76 L Hgb 12.2 L Hct 35.4 L MCV 94 MCH 32.4 MCHC 34.4 RDW 13.9 Plt Count 414 Seg Neutrophils % 86.3 H Lymphocytes % 8.0 L Monocytes % 5.5 Eosinophils % 0.0 Basophils % 0.2 Absolute Neutrophils 6.8 Absolute Lymphocytes 0.6 Absolute Monocytes 0.4 Absolute Eosinophils 0.0 Absolute Basophils 0.0 Carbonic Acid 1.19 HCO3/H2CO3 Ratio 24:1 ABG pH 7.48 H ABG pCO2 39.4 ABG pO2 75.5 L ABG HCO3 28.8 H ABG O2 Saturation 96.0 ABG Base Excess 5.0 FiO2 30% Sodium 142.3 Potassium 4.4 Chloride 107 Carbon Dioxide 25 Anion Gap 10 BUN 33 H Creatinine 0.89 Est GFR ( Amer) > 60 Est GFR (Non-Af Amer) > 60 Glucose 135 H Calcium 9.3 Magnesium 2.6 H 11/10/18 11/10/18 11/10/18 23:20 23:20 23:20 Creatine Kinase 118 CK-MB (CK-2) 4.39 Troponin I 0.078 NT-Pro-B Natriuret Pep 426 11/11/18 11/11/18 11/11/18 05:00 05:00 11:12 Creatine Kinase 109 103 CK-MB (CK-2) 3.94 Troponin I 0.097 NT-Pro-B Natriuret Pep 11/11/18 11/14/18 11:12 04:08 Creatine Kinase CK-MB (CK-2) 3.86 Troponin I 0.067 NT-Pro-B Natriuret Pep 200 Impressions: Cervical Spine CT 11/10/18 22:06 IMPRESSION: No acute cervical spinal fracture is identified. Multilevel degenerative change Head CT 11/10/18 22:06 IMPRESSION: No acute intracranial abnormality is identified. Chest X-Ray 11/19/18 07:38 IMPRESSION: Slight increase in left lower lobe airspace disease either atelectasis or pneumonia. Assessment & Plan - Diagnosis (1) Acute alcohol intoxication with alcoholism Qualifiers: Complication of substance-induced condition: with delirium Qualified Code(s): F10.221 - Alcohol dependence with intoxication delirium Is this a current diagnosis for this admission?: Yes Plan: Stable no seizures (2) Acute and chronic respiratory failure with hypercapnia Is this a current diagnosis for this admission?: Yes Plan: Currently on Mechanical ventilation- will plan to extubate today (3) COPD (chronic obstructive pulmonary disease) Qualifiers: Emphysema type: unspecified Is this a current diagnosis for this admission?: No Plan: Long acting beta agonist plus long-acting cholinergic would not add a inhaled corticosteroid at this time (4) Morbid obesity with BMI of 40.0-44.9, adult Is this a current diagnosis for this admission?: Yes Plan: Consider nutritional consult - Time Total Critical Time (Minutes): 45 Inpatient Scribe Statement - . Entered by Jessica Serra, acting as scribe for .
[2018-11-20] MEDS: FENTANYL CITRATE INJ/PF 100 MCG/2 ML AMPUL IV PRN ×2 (12:15→22:01)
[2018-11-20 12:47] LABS: ARTERIAL BLOOD BASE EXCESS 4.7 mmol/L; ARTERIAL BLOOD H2CO3 1.47 mmol/L (1.05-1.35); ARTERIAL BLOOD HCO3 30.3 mmol/L (20-24); ARTERIAL BLOOD PH 7.41 (7.35-7.45); ARTERIAL BLOOD PO2 91.9 mmHg (80-100); ARTERIAL BLOOD TOTAL CO2 31.8 mmol/L (23-27)
[2018-11-20 12:48] LABS: ARTERIAL BLOOD FIO2 30%
[2018-11-20] MEDS ORDERED: MIDAZOLAM 2 MG/2 ML INJ ONE (13:17)
--- NOTE | 2018-11-20 13:27 | PDOC PROGRESS REPORT ---
Subjective Progress Note for:: 11/20/18 Subjective:: No significant change overnight. Patient scheduled for extubation this afternoon. Reason For Visit: ACUTE RESP FAILURE, CKD, ETOH INTOX Physical Exam Vital Signs: Temp Pulse Resp BP Pulse Ox 99.9 F 74 36 H 158/99 H 100 11/20/18 12:00 11/20/18 12:11 11/20/18 12:11 11/20/18 12:11 11/20/18 12:11 Intake & Output 11/19/18 11/20/18 11/21/18 06:59 06:59 06:59 Intake Total 1848 1366 247 Output Total 2539 5925 830 Balance -682 -909 -583 Weight 111.8 kg 113.4 kg General appearance: PRESENT: no acute distress Head exam: PRESENT: atraumatic Neck exam: ABSENT: carotid bruit, JVD, lymphadenopathy, thyromegaly Respiratory exam: PRESENT: decreased breath sounds GI/Abdominal exam: PRESENT: normal bowel sounds, soft. ABSENT: distended, guarding, mass, organolmegaly, rebound, tenderness Results Laboratory Results: 11/20/18 04:14 11/20/18 04:14 11/20/18 11/20/18 11/20/18 04:00 04:14 04:14 WBC 7.9 RBC 3.76 L Hgb 12.2 L Hct 35.4 L MCV 94 MCH 32.4 MCHC 34.4 RDW 13.9 Plt Count 414 Seg Neutrophils % 86.3 H Lymphocytes % 8.0 L Monocytes % 5.5 Eosinophils % 0.0 Basophils % 0.2 Absolute Neutrophils 6.8 Absolute Lymphocytes 0.6 Absolute Monocytes 0.4 Absolute Eosinophils 0.0 Absolute Basophils 0.0 Carbonic Acid 1.19 HCO3/H2CO3 Ratio 24:1 ABG pH 7.48 H ABG pCO2 39.4 ABG pO2 75.5 L ABG HCO3 28.8 H ABG O2 Saturation 96.0 ABG Base Excess 5.0 FiO2 30% Sodium 142.3 Potassium 4.4 Chloride 107 Carbon Dioxide 25 Anion Gap 10 BUN 33 H Creatinine 0.89 Est GFR ( Amer) > 60 Est GFR (Non-Af Amer) > 60 Glucose 135 H Calcium 9.3 Magnesium 2.6 H 11/20/18 12:30 WBC RBC Hgb Hct MCV MCH MCHC RDW Plt Count Seg Neutrophils % Lymphocytes % Monocytes % Eosinophils % Basophils % Absolute Neutrophils Absolute Lymphocytes Absolute Monocytes Absolute Eosinophils Absolute Basophils Carbonic Acid 1.47 H HCO3/H2CO3 Ratio 20:1 ABG pH 7.41 ABG pCO2 49.0 H ABG pO2 91.9 ABG HCO3 30.3 H ABG O2 Saturation 97.0 ABG Base Excess 4.7 FiO2 30% Sodium Potassium Chloride Carbon Dioxide Anion Gap BUN Creatinine Est GFR ( Amer) Est GFR (Non-Af Amer) Glucose Calcium Magnesium 11/10/18 11/10/18 11/10/18 23:20 23:20 23:20 Creatine Kinase 118 CK-MB (CK-2) 4.39 Troponin I 0.078 NT-Pro-B Natriuret Pep 426 11/11/18 11/11/18 11/11/18 05:00 05:00 11:12 Creatine Kinase 109 103 CK-MB (CK-2) 3.94 Troponin I 0.097 NT-Pro-B Natriuret Pep 11/11/18 11/14/18 11:12 04:08 Creatine Kinase CK-MB (CK-2) 3.86 Troponin I 0.067 NT-Pro-B Natriuret Pep 200 Impressions: Cervical Spine CT 11/10/18 22:06 IMPRESSION: No acute cervical spinal fracture is identified. Multilevel degenerative change Head CT 11/10/18 22:06 IMPRESSION: No acute intracranial abnormality is identified. Chest X-Ray 11/19/18 07:38 IMPRESSION: Slight increase in left lower lobe airspace disease either atelectasis or pneumonia. Assessment and Plan - Diagnosis (1) Acute alcohol intoxication with alcoholism Qualifiers: Complication of substance-induced condition: with delirium Qualified Code(s): F10.221 - Alcohol dependence with intoxication delirium Is this a current diagnosis for this admission?: Yes Plan: Which could explain his altered mental status. (2) Acute and chronic respiratory failure with hypercapnia Is this a current diagnosis for this admission?: Yes Plan: Patient emergently intubated to protect his airway. (3) Acute kidney injury superimposed on chronic kidney disease Is this a current diagnosis for this admission?: Yes Plan: Improving. (4) Alcohol abuse Is this a current diagnosis for this admission?: Yes Plan: I will counseling encourage the patient to remain sober. (5) Altered mental status Qualifiers: Altered mental status type: coma Coma depth: [place] coma 3-8 Coma timing: in the field (EMT or ambulance) Qualified Code(s): R40.2431 - [place] coma scale score 3-8, in the field [EMT or ambulance] Is this a current diagnosis for this admission?: Yes Plan: Acute encephalopathy secondary to alcohol intoxication. (6) Hyperkalemia Is this a current diagnosis for this admission?: Yes Plan: Resolved (7) Obesity (BMI 30-39.9) Is this a current diagnosis for this admission?: Yes Plan: Encourage diet and lifestyle modification.
[2018-11-20] MEDS ORDERED: MIDAZOLAM 2 MG/2 ML INJ IV ONE (14:00)
[2018-11-20 15:10] LABS: ARTERIAL BLOOD BASE EXCESS 3.8 mmol/L; ARTERIAL BLOOD H2CO3 1.26 mmol/L (1.05-1.35); ARTERIAL BLOOD HCO3 28.3 mmol/L (20-24); ARTERIAL BLOOD O2 SATURATION 97.4 % (94-98); ARTERIAL BLOOD PCO2 41.9 mmHg (35-45); ARTERIAL BLOOD PH 7.45 (7.35-7.45); ARTERIAL BLOOD PO2 93.5 mmHg (80-100); ARTERIAL BLOOD TOTAL CO2 29.6 mmol/L (23-27)
[2018-11-20 15:11] LABS: ARTERIAL BLOOD FIO2 30%
[2018-11-20] MEDS: METOPROLOL TARTRATE 50 MG TABLET PO SCH (22:26)
[2018-11-20] MEDS: MONTELUKAST SODIUM 10 MG TABLET NG SCH (22:26)
[2018-11-20] MEDS ORDERED: HYDRALAZINE HCL INJ/PF 20 MG/1 ML SDV IV PRN (23:29)
[2018-11-21] MEDS: IPRATROPIUM/ALBUTEROL 0.5-2.5 MG/3 ML AMPUL NEB SCH ×4 (01:58→20:46)
[2018-11-21 03:50] LABS: ARTERIAL BLOOD BASE EXCESS 3.8 mmol/L; ARTERIAL BLOOD H2CO3 1.44 mmol/L (1.05-1.35); ARTERIAL BLOOD HCO3 29.3 mmol/L (20-24); ARTERIAL BLOOD O2 SATURATION 90.7 % (94-98); ARTERIAL BLOOD PO2 59.5 mmHg (80-100); ARTERIAL BLOOD TOTAL CO2 30.8 mmol/L (23-27)
[2018-11-21 04:01] LABS: ARTERIAL BLOOD FIO2 40%
[2018-11-21] MEDS: FENTANYL CITRATE INJ/PF 100 MCG/2 ML AMPUL IV PRN ×2 (04:02→13:02)
[2018-11-21 04:57] LABS: ABSOLUTE LYMPHOCYTES (AUTO) 1.7 10^3/uL (0.5-4.7); ABSOLUTE MONOCYTES (AUTO) 1.5 10^3/uL (0.1-1.4); ABSOLUTE NEUT (AUTO) 12.5 10^3/uL (1.7-8.2); BASOPHILS % (AUTO) 0.2 % (0-2); EOSINOPHILS % (AUTO) 0.1 % (0-6); HEMATOCRIT 38.3 % (37.9-51.0); HEMOGLOBIN 12.6 g/dL (13.5-17.0); LYMPHOCYTES % (AUTO) 10.7 % (13-45); MEAN CORPUSCULAR HEMOGLOBIN 31.4 pg (27.0-33.4); MEAN CORPUSCULAR HGB CONC 32.9 g/dL (32.0-36.0); MEAN CORPUSCULAR VOLUME 96 fl (80-97); MONOCYTES % (AUTO) 9.6 % (3-13); PLATELET COUNT 542 10^3/uL (150-450); RED BLOOD COUNT 4.01 10^6/uL (4.35-5.55); RED CELL DISTRIBUTION WIDTH 14.1 % (11.5-14.0); SEGMENTED NEUTROPHILS % (AUTO) 79.4 % (42-78); TOTAL CELLS COUNTED % (AUTO) 100 %; WHITE BLOOD COUNT 15.8 10^3/uL (4.0-10.5)
[2018-11-21 05:04] LABS: ANION GAP 11 (5-19); BLOOD UREA NITROGEN 36 mg/dL (7-20); CALCIUM 9.2 mg/dL (8.4-10.2); CARBON DIOXIDE 28 mmol/L (22-30); CHLORIDE 107 mmol/L (98-107); GLUCOSE 114 mg/dL (75-110); POTASSIUM 4.1 mmol/L (3.6-5.0); SODIUM 145.9 mmol/L (137-145)
[2018-11-21] MEDS: PROMETHAZINE HCL 25 MG TABLET NG SCH ×3 (05:24→17:33)
[2018-11-21] MEDS: HEPARIN SOD (PORCINE) 5,000 UNIT/ML 1 ML SYRINGE SUBCUT SCH ×3 (05:24→22:55)
[2018-11-21] MEDS: METHYLPREDNISOLONE INJ 125 MG/2 ML SDV IV SCH ×3 (05:25→22:56)
[2018-11-21] MEDS: IMIPENEM/CILASTATIN SODIUM 500 MG in NORMAL SALINE 100 ML IV SCH ×6 (05:25→23:09)
--- NOTE | 2018-11-21 07:34 | RADIOLOGY REPORT (SQ) ---
EXAM DESCRIPTION: XR CHEST 1 VIEW COMPLETED DATE/TME: 11/21/2018 06:00 CLINICAL HISTORY: 58 years Male, pna COMPARISON: 2 days prior. NUMBER OF VIEWS/TECHNIQUE: 1/AP FINDINGS: Small bibasilar opacity. Moderate lung volume. Normal cardiac silhouette size. No pneumothorax. Stable bony thorax. IMPRESSION: Interval extubation.
[2018-11-21] MEDS: BUDESONIDE NEB 0.5 MG/2 ML AMPUL NEB SCH ×2 (07:48→20:46)
[2018-11-21 07:51] LABS: ARTERIAL BLOOD BASE EXCESS 3.5 mmol/L; ARTERIAL BLOOD H2CO3 1.47 mmol/L (1.05-1.35); ARTERIAL BLOOD HCO3 29.3 mmol/L (20-24); ARTERIAL BLOOD O2 SATURATION 98.7 % (94-98); ARTERIAL BLOOD PH 7.39 (7.35-7.45); ARTERIAL BLOOD PO2 139.1 mmHg (80-100); ARTERIAL BLOOD TOTAL CO2 30.8 mmol/L (23-27)
[2018-11-21 07:55] LABS: ARTERIAL BLOOD FIO2 50%
[2018-11-21] MEDS: INSULIN LISPRO 100 UNIT/ML 3 ML VIAL SUBCUT SCH ×4 (08:24→22:58)
[2018-11-21] MEDS ORDERED: LORAZEPAM INJ 2 MG/1 ML VIAL ONE (08:28)
[2018-11-21] MEDS: NICOTINE 14 MG/24 HR PATCH.TD24 TD PRN (08:37)
[2018-11-21] MEDS: TAMSULOSIN HCL 0.4 MG CAP.SR.24H PO SCH (08:45)
[2018-11-21] MEDS: BUPROPION HCL 75 MG TABLET NG SCH ×2 (08:45→22:46)
[2018-11-21] MEDS: FAMOTIDINE 20 MG TABLET NG SCH ×2 (08:45→22:45)
[2018-11-21] MEDS: THIAMINE HCL 100 MG TABLET NG SCH (08:45)
[2018-11-21] MEDS: FUROSEMIDE 40 MG TABLET NG SCH (08:45)
[2018-11-21] MEDS: METOPROLOL TARTRATE 50 MG TABLET PO SCH ×2 (08:45→22:45)
[2018-11-21] MEDS: ZIPRASIDONE HCL 20 MG CAPSULE PO SCH ×2 (08:45→22:43)
[2018-11-21] MEDS: FOLIC ACID/VITAMIN B COMP W-C CAPSULE NG SCH (08:45)
[2018-11-21] MEDS ORDERED: HALOPERIDOL LACTATE INJ 5 MG/1 ML VIAL ONE (10:02)
[2018-11-21] MEDS: DOCUSATE SODIUM 100 MG/10 ML UDC NG SCH ×2 (10:12→17:33)
[2018-11-21] MEDS: AMPICILLIN SODIUM/SULBACTAM NA 3 GM in NORMAL SALINE 100 ML IV SCH ×2 (13:06→18:20)
--- NOTE | 2018-11-21 13:55 | PDOC PROGRESS REPORT ---
Subjective Progress Note for:: 11/21/18 Subjective:: Patient extubated yesterday. He tolerated the procedure. Patient seems restless and agitated and whenever he is agitated he is respiratory rate spikes. After he is given 10 mg of Haldol IM patient seems sedated. Reason For Visit: ACUTE RESP FAILURE, CKD, ETOH INTOX Physical Exam Vital Signs: Temp Pulse Resp BP Pulse Ox 99.3 F 68 32 H 141/92 H 97 11/21/18 10:00 11/21/18 10:00 11/21/18 12:45 11/21/18 10:41 11/21/18 12:45 Intake & Output 11/20/18 11/21/18 11/22/18 06:59 06:59 06:59 Intake Total 1366 247 Output Total 1421 1660 365 Balance -909 -2283 -365 Weight 113.4 kg 111.4 kg General appearance: PRESENT: no acute distress Neck exam: ABSENT: carotid bruit, JVD, lymphadenopathy, thyromegaly Respiratory exam: PRESENT: decreased breath sounds Cardiovascular exam: PRESENT: RRR. ABSENT: diastolic murmur, rubs, systolic mur mur GI/Abdominal exam: PRESENT: normal bowel sounds, soft. ABSENT: distended, guarding, mass, organolmegaly, rebound, tenderness Neurological exam: PRESENT: alert, awake Psychiatric exam: PRESENT: agitated Results Laboratory Results: 11/21/18 04:07 11/21/18 04:07 11/20/18 11/21/18 11/21/18 15:00 03:40 04:07 WBC 15.8 H RBC 4.01 L Hgb 12.6 L Hct 38.3 MCV 96 MCH 31.4 MCHC 32.9 RDW 14.1 H Plt Count 542 H Seg Neutrophils % 79.4 H Lymphocytes % 10.7 L Monocytes % 9.6 Eosinophils % 0.1 Basophils % 0.2 Absolute Neutrophils 12.5 H Absolute Lymphocytes 1.7 Absolute Monocytes 1.5 H Absolute Eosinophils 0.0 Absolute Basophils 0.0 Carbonic Acid 1.26 1.44 H HCO3/H2CO3 Ratio 22:1 20:1 ABG pH 7.45 7.40 ABG pCO2 41.9 48.0 H ABG pO2 93.5 59.5 L ABG HCO3 28.3 H 29.3 H ABG O2 Saturation 97.4 90.7 L ABG Base Excess 3.8 3.8 FiO2 30% 40% Sodium Potassium Chloride Carbon Dioxide Anion Gap BUN Creatinine Est GFR ( Amer) Est GFR (Non-Af Amer) Glucose Calcium Magnesium 11/21/18 11/21/18 04:07 07:43 WBC RBC Hgb Hct MCV MCH MCHC RDW Plt Count Seg Neutrophils % Lymphocytes % Monocytes % Eosinophils % Basophils % Absolute Neutrophils Absolute Lymphocytes Absolute Monocytes Absolute Eosinophils Absolute Basophils Carbonic Acid 1.47 H HCO3/H2CO3 Ratio 19:1 ABG pH 7.39 ABG pCO2 49.0 H ABG pO2 139.1 H ABG HCO3 29.3 H ABG O2 Saturation 98.7 H ABG Base Excess 3.5 FiO2 50% Sodium 145.9 H Potassium 4.1 Chloride 107 Carbon Dioxide 28 Anion Gap 11 BUN 36 H Creatinine 1.14 Est GFR ( Amer) > 60 Est GFR (Non-Af Amer) > 60 Glucose 114 H Calcium 9.2 Magnesium 2.5 H 11/10/18 11/10/18 11/10/18 23:20 23:20 23:20 Creatine Kinase 118 CK-MB (CK-2) 4.39 Troponin I 0.078 NT-Pro-B Natriuret Pep 426 11/11/18 11/11/18 11/11/18 05:00 05:00 11:12 Creatine Kinase 109 103 CK-MB (CK-2) 3.94 Troponin I 0.097 NT-Pro-B Natriuret Pep 11/11/18 11/14/18 11:12 04:08 Creatine Kinase CK-MB (CK-2) 3.86 Troponin I 0.067 NT-Pro-B Natriuret Pep 200 Impressions: Cervical Spine CT 11/10/18 22:06 IMPRESSION: No acute cervical spinal fracture is identified. Multilevel degenerative change Head CT 11/10/18 22:06 IMPRESSION: No acute intracranial abnormality is identified. Chest X-Ray 11/21/18 06:00 IMPRESSION: Interval extubation. Assessment and Plan - Diagnosis (1) Acute alcohol intoxication with alcoholism Qualifiers: Complication of substance-induced condition: with delirium Qualified Code(s): F10.221 - Alcohol dependence with intoxication delirium Is this a current diagnosis for this admission?: Yes Plan: Patient is not withdrawing. (2) Acute and chronic respiratory failure with hypercapnia Is this a current diagnosis for this admission?: Yes Plan: Patient is currently status post extubation. (3) Acute kidney injury superimposed on chronic kidney disease Is this a current diagnosis for this admission?: Yes Plan: Resolving (4) Alcohol abuse Is this a current diagnosis for this admission?: Yes Plan: I will counseling encourage the patient to remain sober. (5) Altered mental status Qualifiers: Altered mental status type: coma Coma depth: [place] coma 3-8 Coma timing: in the field (EMT or ambulance) Qualified Code(s): R40.2431 - [place] coma scale score 3-8, in the field [EMT or ambulance] Is this a current diagnosis for this admission?: Yes Plan: Still patient is altered, agitated partly contributed by the different requirements like ICU. (6) Hyperkalemia Is this a current diagnosis for this admission?: Yes Plan: Resolved (7) Obesity (BMI 30-39.9) Is this a current diagnosis for this admission?: Yes
--- NOTE | 2018-11-21 15:33 | Progress Note ---
Provider Note Provider Note: ID Consult Note Asked to review patient's chart by Pharmacy. Pt not seen or examined. Mr. Li is a 58 year old man with PMH including alcohol abuse, HTN, cirrhosis, CKD, and COPD who presented on 11/11/18 due to unresponsiveness and was found to have hypercapneic respiratory failure requiring intubation and acute kidney injury also with hyperkalemia. He had agitation, fever, leukocytosis. He appeared to have acute alcohol intoxication, delirium, and COPD exacerbation. U/A had pyuria. UCx grew >100k cfu E coli. Blood cultures were negative. Sputum Cx from 11/13 grew [place]err[place]ia. Lungs were clear and cXR showed bibasilar bandlike atelectatic changes. He was thought to potentially have aspiration pneumonia or a UTI, in addition to management for DTs. He received Rocephin from 11/12-11/13 and then Zosyn from 11/13 to 11/19. At present Unasyn is ordered along with Primaxin. In the interim, he has been able to be successfully extubated. He has no fever. He has a leukocytosis. Impression/Recommendation Leukocytosis is ultimately nonspecific and can reflect a non-infectious systemic inflammatory response or physiologic stress. He has already been treated with an adequate course for complicated UTI and pneumonia with an agent active against the organisms isolated in his urine and in his sputum. Certainly, the patient may be at ongoing risk for aspiration - recent intubation, hx of alcoholism, delirium - but these risk factors would have to be managed. There is no role for antibiotic prophylactically. Improving clinically, certainly enough to be successfully extubated, seems to argue against the patient having a new superimposed pneumonia at present. Recommend discontinuing Unasyn and Primaxin and continuing supportive care and monitoring otherwise. Jesse Berry MD [facility] Infectious Diseases pager [phone]
[2018-11-21 18:22] LABS: ARTERIAL BLOOD BASE EXCESS 3.8 mmol/L; ARTERIAL BLOOD H2CO3 1.64 mmol/L (1.05-1.35); ARTERIAL BLOOD HCO3 30.4 mmol/L (20-24); ARTERIAL BLOOD O2 SATURATION 98.4 % (94-98); ARTERIAL BLOOD PCO2 54.5 mmHg (35-45); ARTERIAL BLOOD PH 7.36 (7.35-7.45); ARTERIAL BLOOD PO2 126.9 mmHg (80-100)
[2018-11-21 18:24] LABS: ARTERIAL BLOOD FIO2 40%
[2018-11-21] MEDS: MONTELUKAST SODIUM 10 MG TABLET NG SCH (22:46)
[2018-11-22] MEDS: AMPICILLIN SODIUM/SULBACTAM NA 3 GM in NORMAL SALINE 100 ML IV SCH ×2 (00:07→05:55)
[2018-11-22] MEDS: PROMETHAZINE HCL 25 MG TABLET NG SCH ×2 (00:09→05:55)
[2018-11-22] MEDS: IPRATROPIUM/ALBUTEROL 0.5-2.5 MG/3 ML AMPUL NEB SCH ×4 (02:14→19:35)
[2018-11-22 04:10] LABS: ABSOLUTE LYMPHOCYTES (AUTO) 1.3 10^3/uL (0.5-4.7); ABSOLUTE MONOCYTES (AUTO) 0.7 10^3/uL (0.1-1.4); ABSOLUTE NEUT (AUTO) 10.5 10^3/uL (1.7-8.2); EOSINOPHILS % (AUTO) 0.1 % (0-6); HEMATOCRIT 40.3 % (37.9-51.0); HEMOGLOBIN 13.5 g/dL (13.5-17.0); LYMPHOCYTES % (AUTO) 10.3 % (13-45); MEAN CORPUSCULAR HEMOGLOBIN 32.1 pg (27.0-33.4); MEAN CORPUSCULAR HGB CONC 33.6 g/dL (32.0-36.0); MEAN CORPUSCULAR VOLUME 96 fl (80-97); MONOCYTES % (AUTO) 5.5 % (3-13); PLATELET COUNT 461 10^3/uL (150-450); RED BLOOD COUNT 4.21 10^6/uL (4.35-5.55); RED CELL DISTRIBUTION WIDTH 13.9 % (11.5-14.0); SEGMENTED NEUTROPHILS % (AUTO) 84.1 % (42-78); TOTAL CELLS COUNTED % (AUTO) 100 %; WHITE BLOOD COUNT 12.4 10^3/uL (4.0-10.5)
[2018-11-22 04:26] LABS: ANION GAP 10 (5-19); BLOOD UREA NITROGEN 36 mg/dL (7-20); CALCIUM 9.8 mg/dL (8.4-10.2); CARBON DIOXIDE 31 mmol/L (22-30); CHLORIDE 104 mmol/L (98-107); GLUCOSE 104 mg/dL (75-110); POTASSIUM 4.2 mmol/L (3.6-5.0); SODIUM 145.3 mmol/L (137-145)
[2018-11-22] MEDS: IMIPENEM/CILASTATIN SODIUM 500 MG in NORMAL SALINE 100 ML IV SCH (05:00)
[2018-11-22] MEDS: HEPARIN SOD (PORCINE) 5,000 UNIT/ML 1 ML SYRINGE SUBCUT SCH ×3 (05:10→22:36)
[2018-11-22] MEDS: METHYLPREDNISOLONE INJ 125 MG/2 ML SDV IV SCH (05:10)
[2018-11-22 05:13] LABS: ARTERIAL BLOOD BASE EXCESS 3.3 mmol/L; ARTERIAL BLOOD H2CO3 1.54 mmol/L (1.05-1.35); ARTERIAL BLOOD HCO3 29.5 mmol/L (20-24); ARTERIAL BLOOD O2 SATURATION 98.5 % (94-98); ARTERIAL BLOOD PCO2 51.2 mmHg (35-45); ARTERIAL BLOOD PH 7.38 (7.35-7.45); ARTERIAL BLOOD PO2 131.2 mmHg (80-100)
[2018-11-22 05:14] LABS: ARTERIAL BLOOD FIO2 40%
--- NOTE | 2018-11-22 07:09 | RADIOLOGY REPORT (SQ) ---
EXAM DESCRIPTION: XR CHEST 1 VIEW COMPLETED DATE/TME: 11/22/2018 06:00 CLINICAL HISTORY: 58 years Male, pna COMPARISON: One day prior. NUMBER OF VIEWS/TECHNIQUE: 1/AP FINDINGS: Moderate lung volume. Small right basilar and left retrocardiac opacity.Normal cardiac silhouette size. No pneumothorax. Stable bony thorax. IMPRESSION: No significant change.
[2018-11-22] MEDS: BUDESONIDE NEB 0.5 MG/2 ML AMPUL NEB SCH ×2 (07:35→19:39)
[2018-11-22] MEDS: INSULIN LISPRO 100 UNIT/ML 3 ML VIAL SUBCUT SCH (08:59)
[2018-11-22] MEDS ORDERED: HALOPERIDOL LACTATE INJ 5 MG/1 ML VIAL IM ONE (09:00)
[2018-11-22] MEDS ORDERED: LORAZEPAM INJ 2 MG/1 ML VIAL IV ONE (09:00)
[2018-11-22] MEDS: DOCUSATE SODIUM 100 MG/10 ML UDC NG SCH ×2 (09:20→16:59)
[2018-11-22] MEDS: TAMSULOSIN HCL 0.4 MG CAP.SR.24H PO SCH (09:20)
[2018-11-22] MEDS: FAMOTIDINE 20 MG TABLET NG SCH ×2 (09:20→22:37)
[2018-11-22] MEDS: METOPROLOL TARTRATE 50 MG TABLET PO SCH ×2 (09:20→22:37)
[2018-11-22] MEDS: FOLIC ACID/VITAMIN B COMP W-C CAPSULE NG SCH (09:20)
[2018-11-22] MEDS: THIAMINE HCL 100 MG TABLET NG SCH (09:20)
[2018-11-22] MEDS: FUROSEMIDE 40 MG TABLET NG SCH (09:20)
[2018-11-22] MEDS: NICOTINE 14 MG/24 HR PATCH.TD24 TD PRN (09:21)
[2018-11-22] MEDS: METHYLPREDNISOLONE INJ 40 MG/1 ML SDV IV SCH ×2 (09:21→22:36)
[2018-11-22] MEDS: BUPROPION HCL 75 MG TABLET NG SCH ×2 (09:21→22:37)
[2018-11-22] MEDS ORDERED: PROMETHAZINE HCL 25 MG TABLET NG PRN (09:33)
[2018-11-22] MEDS ORDERED: ZIPRASIDONE HCL 20 MG CAPSULE PO SCH (10:00)
[2018-11-22] MEDS: ZIPRASIDONE HCL 40 MG CAPSULE PO SCH ×2 (10:24→22:37)
--- NOTE | 2018-11-22 12:26 | PDOC PROGRESS REPORT ---
Subjective Progress Note for:: 11/22/18 Subjective:: Patient seen propped up in bed and enjoying his breakfast. He is awake alert and oriented. He is no more agitated. He is well conversant. Potential is downgraded able to regular floor. Reason For Visit: ACUTE RESP FAILURE, CKD, ETOH INTOX Physical Exam Vital Signs: Temp Pulse Resp BP Pulse Ox 99.3 F 67 31 H 138/94 H 95 11/22/18 11:58 11/22/18 11:58 11/22/18 11:58 11/22/18 11:58 11/22/18 11:58 Intake & Output 11/21/18 11/22/18 11/23/18 06:59 06:59 06:59 Intake Total 247 400 Output Total 2530 9480 495 Balance -2283 -2420 -495 Weight 111.4 kg 107.3 kg General appearance: PRESENT: no acute distress Eye exam: PRESENT: conjunctiva pink Neck exam: ABSENT: carotid bruit, JVD, lymphadenopathy, thyromegaly Respiratory exam: PRESENT: clear to auscultation abi. ABSENT: rales, rhonchi, wheezes GI/Abdominal exam: PRESENT: normal bowel sounds, soft. ABSENT: distended, guarding, mass, organolmegaly, rebound, tenderness Results Laboratory Results: 11/22/18 03:32 11/22/18 03:32 11/21/18 11/22/18 11/22/18 18:15 03:32 03:32 WBC 12.4 H RBC 4.21 L Hgb 13.5 Hct 40.3 MCV 96 MCH 32.1 MCHC 33.6 RDW 13.9 Plt Count 461 H Seg Neutrophils % 84.1 H Lymphocytes % 10.3 L Monocytes % 5.5 Eosinophils % 0.1 Basophils % 0.0 Absolute Neutrophils 10.5 H Absolute Lymphocytes 1.3 Absolute Monocytes 0.7 Absolute Eosinophils 0.0 Absolute Basophils 0.0 Carbonic Acid 1.64 H HCO3/H2CO3 Ratio 18:1 ABG pH 7.36 ABG pCO2 54.5 H ABG pO2 126.9 H ABG HCO3 30.4 H ABG O2 Saturation 98.4 H ABG Base Excess 3.8 FiO2 40% Sodium 145.3 H Potassium 4.2 Chloride 104 Carbon Dioxide 31 H Anion Gap 10 BUN 36 H Creatinine 0.95 Est GFR ( Amer) > 60 Est GFR (Non-Af Amer) > 60 Glucose 104 Calcium 9.8 Magnesium 2.6 H 11/22/18 04:59 WBC RBC Hgb Hct MCV MCH MCHC RDW Plt Count Seg Neutrophils % Lymphocytes % Monocytes % Eosinophils % Basophils % Absolute Neutrophils Absolute Lymphocytes Absolute Monocytes Absolute Eosinophils Absolute Basophils Carbonic Acid 1.54 H HCO3/H2CO3 Ratio 19:1 ABG pH 7.38 ABG pCO2 51.2 H ABG pO2 131.2 H ABG HCO3 29.5 H ABG O2 Saturation 98.5 H ABG Base Excess 3.3 FiO2 40% Sodium Potassium Chloride Carbon Dioxide Anion Gap BUN Creatinine Est GFR ( Amer) Est GFR (Non-Af Amer) Glucose Calcium Magnesium 11/10/18 11/10/18 11/10/18 23:20 23:20 23:20 Creatine Kinase 118 CK-MB (CK-2) 4.39 Troponin I 0.078 NT-Pro-B Natriuret Pep 426 11/11/18 11/11/18 11/11/18 05:00 05:00 11:12 Creatine Kinase 109 103 CK-MB (CK-2) 3.94 Troponin I 0.097 NT-Pro-B Natriuret Pep 11/11/18 11/14/18 11:12 04:08 Creatine Kinase CK-MB (CK-2) 3.86 Troponin I 0.067 NT-Pro-B Natriuret Pep 200 Impressions: Cervical Spine CT 11/10/18 22:06 IMPRESSION: No acute cervical spinal fracture is identified. Multilevel degenerative change Head CT 11/10/18 22:06 IMPRESSION: No acute intracranial abnormality is identified. Chest X-Ray 11/22/18 06:00 IMPRESSION: No significant change. Assessment and Plan - Diagnosis (1) Acute alcohol intoxication with alcoholism Qualifiers: Complication of substance-induced condition: with delirium Qualified Code(s): F10.221 - Alcohol dependence with intoxication delirium Is this a current diagnosis for this admission?: Yes Plan: Patient is not withdrawing. (2) Acute and chronic respiratory failure with hypercapnia Is this a current diagnosis for this admission?: Yes Plan: Patient is currently status post extubation. (3) Acute kidney injury superimposed on chronic kidney disease Is this a current diagnosis for this admission?: Yes Plan: Resolving (4) Alcohol abuse Is this a current diagnosis for this admission?: Yes Plan: I will counseling encourage the patient to remain sober. (5) Altered mental status Qualifiers: Altered mental status type: coma Coma depth: [place] coma 3-8 Coma timing: in the field (EMT or ambulance) Qualified Code(s): R40.2431 - [place] coma scale score 3-8, in the field [EMT or ambulance] Is this a current diagnosis for this admission?: Yes Plan: Still patient is altered, agitated partly contributed by the different requirements like ICU. (6) Hyperkalemia Is this a current diagnosis for this admission?: Yes Plan: Resolved (7) Obesity (BMI 30-39.9) Is this a current diagnosis for this admission?: Yes Plan: Encourage diet and lifestyle modification.
[2018-11-22 16:13] LABS: ARTERIAL BLOOD BASE EXCESS 4.4 mmol/L; ARTERIAL BLOOD HCO3 31.8 mmol/L (20-24); ARTERIAL BLOOD O2 SATURATION 96.5 % (94-98); ARTERIAL BLOOD PCO2 59.7 mmHg (35-45); ARTERIAL BLOOD PH 7.34 (7.35-7.45); ARTERIAL BLOOD PO2 92.1 mmHg (80-100); ARTERIAL BLOOD TOTAL CO2 33.6 mmol/L (23-27)
[2018-11-22 16:14] LABS: ARTERIAL BLOOD FIO2 2L
[2018-11-22 19:17] LABS: CREATINE KINASE MB 0.29 ng/mL (<4.55)
[2018-11-22 19:19] LABS: TROPONIN I < 0.012 ng/mL
--- NOTE | 2018-11-22 19:31 | RADIOLOGY REPORT (SQ) ---
EXAM DESCRIPTION: CHEST SINGLE VIEW COMPLETED DATE/TIME: 11/22/2018 7:18 pm REASON FOR STUDY: SUDDEN ONSET CHEST PAIN COMPARISON: 11/22/2018 0620 hours EXAM PARAMETERS: NUMBER OF VIEWS: One view. TECHNIQUE: AP apical lordotic upright view. RADIATION DOSE: NA LIMITATIONS: None. FINDINGS: LUNGS AND PLEURA: Persistent right basilar atelectasis and left retrocardiac infiltrate ob scuring left hemidiaphragm unchanged. MEDIASTINUM AND HILAR STRUCTURES: No masses. Contour normal. HEART AND VASCULAR STRUCTURES: The heart is normal. The pulmonary vasculature is normal. . BONES: No acute findings. HARDWARE: None in the chest. OTHER: Chest leads in place. IMPRESSION: Right basilar atelectasis and left retrocardiac infiltrate unchanged. TECHNICAL DOCUMENTATION: JOB ID: [id number] [id number] 2010 [employer]- All Rights Reserved Reading location - IP/workstation name: [email or web address]
--- NOTE | 2018-11-22 19:48 | EKG REPORT ---
SEVERITY:- BORDERLINE ECG - SINUS RHYTHM BORDERLINE T WAVE ABNORMALITIES : Confirmed by: Chavez Chavez 22-Nov-2018 19:48:09
[2018-11-22] MEDS: ACETAMINOPHEN 325 MG TABLET NG PRN (20:02)
--- NOTE | 2018-11-22 21:10 | PSYCHOLOGICAL NOTE ---
Psych Note - Psych Note Date seen by psych provider: 11/22/18 Time seen by psych provider: 17:00 - 1720 Psych Note: Reason for Consult: Stress, medication recommendations Medication recommendations per [facility]'s contracted psychiatrist Dr. Magui MONSON are as follows Please reduce home medication of Welburtin to 75mg daily for 7 days then discontinue please start Depakote 250mg twice daily Unspecified anxiety Stage of life changes Impression/Plan: Patient is cleared from acute psychiatric services. Patient openly engaged with clinician and discussed stressors, stage of life changes, and reminisced about enjoyable past events. He demonstrated forward thinking wh en discussing his senior living in 2 years and how much he is looking forward to it. Medication recommendations have been provided. There is concern the patient has noted atrophy in his head CT, so recommendations reflect adjustments to assist with mood stabilization while reducing possible adverse effects to his neurodegenerative processes. Dr. Lopez was consulted on the care and management of this patient.
[2018-11-22] MEDS: MONTELUKAST SODIUM 10 MG TABLET NG SCH (22:37)
[2018-11-23] MEDS: IPRATROPIUM/ALBUTEROL 0.5-2.5 MG/3 ML AMPUL NEB SCH ×4 (02:03→20:43)
[2018-11-23 03:53] LABS: ABSOLUTE EOSINOPHILS # (AUTO) 0.1 10^3/uL (0.0-0.6); ABSOLUTE LYMPHOCYTES (AUTO) 1.9 10^3/uL (0.5-4.7); ABSOLUTE MONOCYTES (AUTO) 0.9 10^3/uL (0.1-1.4); ABSOLUTE NEUT (AUTO) 13.4 10^3/uL (1.7-8.2); BASOPHILS % (AUTO) 0.2 % (0-2); EOSINOPHILS % (AUTO) 0.5 % (0-6); HEMATOCRIT 37.7 % (37.9-51.0); HEMOGLOBIN 12.5 g/dL (13.5-17.0); LYMPHOCYTES % (AUTO) 11.8 % (13-45); MEAN CORPUSCULAR HEMOGLOBIN 31.5 pg (27.0-33.4); MEAN CORPUSCULAR HGB CONC 33.1 g/dL (32.0-36.0); MEAN CORPUSCULAR VOLUME 95 fl (80-97); MONOCYTES % (AUTO) 5.5 % (3-13); PLATELET COUNT 531 10^3/uL (150-450); RED BLOOD COUNT 3.97 10^6/uL (4.35-5.55); RED CELL DISTRIBUTION WIDTH 13.7 % (11.5-14.0); TOTAL CELLS COUNTED % (AUTO) 100 %; WHITE BLOOD COUNT 16.4 10^3/uL (4.0-10.5)
[2018-11-23 04:10] LABS: ALANINE AMINOTRANSFERASE 103 U/L (21-72); ALBUMIN 3.2 g/dL (3.5-5.0); ALKALINE PHOSPHATASE 84 U/L (38-126); ANION GAP 10 (5-19); ASPARTATE AMINO TRANSFERASE 26 U/L (17-59); BILIRUBIN,DIRECT 0.3 mg/dL (0.0-0.4); BILIRUBIN,TOTAL 0.4 mg/dL (0.2-1.3); BLOOD UREA NITROGEN 37 mg/dL (7-20); CALCIUM 9.3 mg/dL (8.4-10.2); CARBON DIOXIDE 30 mmol/L (22-30); CHLORIDE 102 mmol/L (98-107); GLUCOSE 106 mg/dL (75-110); POTASSIUM 3.9 mmol/L (3.6-5.0); SODIUM 141.8 mmol/L (137-145); TOTAL PROTEIN 5.8 g/dL (6.3-8.2)
[2018-11-23 05:46] LABS: ARTERIAL BLOOD BASE EXCESS 7.2 mmol/L; ARTERIAL BLOOD HCO3 33.3 mmol/L (20-24); ARTERIAL BLOOD O2 SATURATION 97.1 % (94-98); ARTERIAL BLOOD PCO2 53.3 mmHg (35-45); ARTERIAL BLOOD PH 7.41 (7.35-7.45); ARTERIAL BLOOD TOTAL CO2 34.9 mmol/L (23-27)
[2018-11-23 05:47] LABS: ARTERIAL BLOOD FIO2 2 LPM
[2018-11-23] MEDS: HEPARIN SOD (PORCINE) 5,000 UNIT/ML 1 ML SYRINGE SUBCUT SCH ×3 (06:30→21:48)
--- NOTE | 2018-11-23 07:00 | RADIOLOGY REPORT (SQ) ---
EXAM DESCRIPTION: XR CHEST 1 VIEW COMPLETED DATE/TME: 11/23/2018 06:00 CLINICAL HISTORY: 58 years Male, TACHYPNEA/PNA COMPARISON: One day prior. NUMBER OF VIEWS/TECHNIQUE: 1/AP FINDINGS: Small streaky opacity-effusion of the right lung base. Small left perihilar opacity. Normal cardiac silhouette size. Moderate right lung volume. No pneumothorax. Stable bony thorax. IMPRESSION: No significant change.
[2018-11-23] MEDS: BUDESONIDE NEB 0.5 MG/2 ML AMPUL NEB SCH ×2 (08:32→20:43)
[2018-11-23] MEDS ORDERED: PREDNISONE 20 MG TABLET PO SCH (10:00)
[2018-11-23] MEDS: DOCUSATE SODIUM 100 MG/10 ML UDC NG SCH ×2 (10:07→17:06)
[2018-11-23] MEDS: METOPROLOL TARTRATE 50 MG TABLET PO SCH ×2 (10:08→21:49)
[2018-11-23] MEDS: FUROSEMIDE 40 MG TABLET NG SCH (10:08)
[2018-11-23] MEDS: THIAMINE HCL 100 MG TABLET NG SCH (10:08)
[2018-11-23] MEDS: FAMOTIDINE 20 MG TABLET NG SCH ×2 (10:08→21:50)
[2018-11-23] MEDS: FOLIC ACID/VITAMIN B COMP W-C CAPSULE NG SCH (10:08)
[2018-11-23] MEDS: TAMSULOSIN HCL 0.4 MG CAP.SR.24H PO SCH (10:09)
[2018-11-23] MEDS: ZIPRASIDONE HCL 40 MG CAPSULE PO SCH ×2 (10:09→21:56)
[2018-11-23] MEDS: BUPROPION HCL 75 MG TABLET NG SCH ×2 (10:09→21:49)
--- NOTE | 2018-11-23 11:04 | PDOC PROGRESS REPORT ---
Subjective Progress Note for:: 11/23/18 Subjective:: KAMERON TRUJILLO is a 58 year old male with a past medical history of alcohol abuse, hypertension, hepatic cirrhosis, chronic kidney disease, and COPD with oxygen dependence. Patient presents to the emergency department via EMS with altered mental status and subsequently history is obtained by the record. He is intubated by emergency department provider for a GCS of 3 with hypoxia and unprotected airway. Patient was noted by his at approximately 7:30 PM com plaining of feeling tired and found approximately 15 minutes later unresponsive. Patient's believed he had been drinking excessively. ABG reveals hypoxic and hypercapnic respiratory failure, chemistry reveals a potassium 7.5 without peak T waves, creatinine of 2.2, serum alcohol is 196. His latest potassium is 3.9 and his creatinine is 0.89. Patient has had intermittent confusion and agitation. He was extubated 2 days ago. He tolerated the procedure well. He is eating well and tolerates well. His agitation and confusion is relatively subsided. Patient is stable enough to be downgraded to medical floor. Reason For Visit: ACUTE RESP FAILURE, CKD, ETOH INTOX Physical Exam Vital Signs: Temp Pulse Resp BP Pulse Ox 99.5 F 72 27 H 126/74 H 92 11/23/18 10:00 11/23/18 10:00 11/23/18 10:00 11/23/18 10:00 11/23/18 10:00 Intake & Output 11/22/18 11/23/18 11/24/18 06:59 06:59 06:59 Intake Total 400 200 Output Total 2820 1710 240 Balance -2420 -1510 -240 Weight 107.3 kg 109.8 kg General appearance: PRESENT: no acute distress Eye exam: PRESENT: conjunctiva pink Mouth exam: PRESENT: moist Neck exam: ABSENT: carotid bruit, JVD, lymphadenopathy, thyromegaly Respiratory exam: PRESENT: clear to auscultation abi. ABSENT: rales, rhonchi, wheezes Cardiovascular exam: PRESENT: RRR. ABSENT: diastolic murmur, rubs, systolic murmur GI/Abdominal exam: PRESENT: normal bowel sounds, soft. ABSENT: distended, guarding, mass, organolmegaly, rebound, tenderness Neurological exam: PRESENT: alert, awake Results Laboratory Results: 11/23/18 03:38 11/23/18 03:38 11/22/18 11/23/18 11/23/18 16:00 03:38 03:38 WBC 16.4 H RBC 3.97 L Hgb 12.5 L Hct 37.7 L MCV 95 MCH 31.5 MCHC 33.1 RDW 13.7 Plt Count 531 H Seg Neutrophils % 82.0 H Lymphocytes % 11.8 L Monocytes % 5.5 Eosinophils % 0.5 Basophils % 0.2 Absolute Neutrophils 13.4 H Absolute Lymphocytes 1.9 Absolute Monocytes 0.9 Absolute Eosinophils 0.1 Absolute Basophils 0.0 Carbonic Acid 1.80 H HCO3/H2CO3 Ratio 17:1 ABG pH 7.34 L ABG pCO2 59.7 H ABG pO2 92.1 ABG HCO3 31.8 H ABG O2 Saturation 96.5 ABG Base Excess 4.4 FiO2 2L Sodium 141.8 Potassium 3.9 Chloride 102 Carbon Dioxide 30 Anion Gap 10 BUN 37 H Creatinine 0.89 Est GFR ( Amer) > 60 Est GFR (Non-Af Amer) > 60 Glucose 106 Calcium 9.3 Magnesium 2.5 H Total Bilirubin 0.4 AST 26 ALT 103 H Alkaline Phosphatase 84 Total Protein 5.8 L Albumin 3.2 L 11/23/18 05:15 WBC RBC Hgb Hct MCV MCH MCHC RDW Plt Count Seg Neutrophils % Lymphocytes % Monocytes % Eosinophils % Basophils % Absolute Neutrophils Absolute Lymphocytes Absolute Monocytes Absolute Eosinophils Absolute Basophils Carbonic Acid 1.60 H HCO3/H2CO3 Ratio 20:1 ABG pH 7.41 ABG pCO2 53.3 H ABG pO2 94.0 ABG HCO3 33.3 H ABG O2 Saturation 97.1 ABG Base Excess 7.2 FiO2 2 LPM Sodium Potassium Chloride Carbon Dioxide Anion Gap BUN Creatinine Est GFR ( Amer) Est GFR (Non-Af Amer) Glucose Calcium Magnesium Total Bilirubin AST ALT Alkaline Phosphatase Total Protein Albumin 11/10/18 11/10/18 11/10/18 23:20 23:20 23:20 Creatine Kinase 118 CK-MB (CK-2) 4.39 Troponin I 0.078 NT-Pro-B Natriuret Pep 426 11/11/18 11/11/18 11/11/18 05:00 05:00 11:12 Creatine Kinase 109 103 CK-MB (CK-2) 3.94 Troponin I 0.097 NT-Pro-B Natriuret Pep 11/11/18 11/14/18 11/22/18 11:12 04:08 18:38 Creatine Kinase 24 L CK-MB (CK-2) 3.86 Troponin I 0.067 NT-Pro-B Natriuret Pep 200 11/22/18 18:38 Creatine Kinase CK-MB (CK-2) 0.29 Troponin I < 0.012 NT-Pro-B Natriuret Pep Impressions: Cervical Spine CT 11/10/18 22:06 IMPRESSION: No acute cervical spinal fracture is identified. Multilevel degenerative change Head CT 11/10/18 22:06 IMPRESSION: No acute intracranial abnormality is identified. Chest X-Ray 11/23/18 06:00 IMPRESSION: No significant change. Assessment and Plan - Diagnosis (1) Acute alcohol intoxication with alcoholism Qualifiers: Complication of substance-induced condition: with delirium Qualified Code(s): F10.221 - Alcohol dependence with intoxication delirium Is this a current diagnosis for this admission?: Yes Plan: Patient is not withdrawing. (2) Acute and chronic respiratory failure with hypercapnia Is this a current diagnosis for this admission?: Yes Plan: Patient is currently status post extubation. (3) Acute kidney injury superimposed on chronic kidney disease Is this a current diagnosis for this admission?: Yes Plan: Resolving (4) Alcohol abuse Is this a current diagnosis for this admission?: Yes Plan: I will counseling encourage the patient to remain sober. (5) Altered mental status Qualifiers: Altered mental status type: coma Coma depth: [place] coma 3-8 Coma timing: in the field (EMT or ambulance) Qualified Code(s): R40.2431 - [place] coma scale score 3-8, in the field [EMT or ambulance] Is this a current diagnosis for this admission?: Yes Plan: Still patient is altered, agitated partly contributed by the different requirements like ICU. (6) Hyperkalemia Is this a current diagnosis for this admission?: Yes Plan: Resolved (7) Obesity (BMI 30-39.9) Is this a current diagnosis for this admission?: Yes Plan: Encourage diet and lifestyle modification.
[2018-11-23] MEDS: MONTELUKAST SODIUM 10 MG TABLET NG SCH (21:50)
[2018-11-23] MEDS: ACETAMINOPHEN 325 MG TABLET NG PRN (21:52)
[2018-11-23] MEDS ORDERED: ZIPRASIDONE HCL 40 MG CAPSULE PO ONE (21:54)
[2018-11-24] MEDS: IPRATROPIUM/ALBUTEROL 0.5-2.5 MG/3 ML AMPUL NEB SCH ×4 (02:39→19:10)
[2018-11-24 04:48] LABS: ABSOLUTE EOSINOPHILS # (AUTO) 0.2 10^3/uL (0.0-0.6); ABSOLUTE LYMPHOCYTES (AUTO) 2.7 10^3/uL (0.5-4.7); ABSOLUTE MONOCYTES (AUTO) 1.1 10^3/uL (0.1-1.4); ABSOLUTE NEUT (AUTO) 13.3 10^3/uL (1.7-8.2); BASOPHILS % (AUTO) 0.2 % (0-2); EOSINOPHILS % (AUTO) 1.2 % (0-6); HEMATOCRIT 37.1 % (37.9-51.0); HEMOGLOBIN 12.3 g/dL (13.5-17.0); LYMPHOCYTES % (AUTO) 15.7 % (13-45); MEAN CORPUSCULAR HEMOGLOBIN 31.7 pg (27.0-33.4); MEAN CORPUSCULAR HGB CONC 33.2 g/dL (32.0-36.0); MEAN CORPUSCULAR VOLUME 96 fl (80-97); MONOCYTES % (AUTO) 6.3 % (3-13); PLATELET COUNT 479 10^3/uL (150-450); RED BLOOD COUNT 3.88 10^6/uL (4.35-5.55); RED CELL DISTRIBUTION WIDTH 13.9 % (11.5-14.0); SEGMENTED NEUTROPHILS % (AUTO) 76.6 % (42-78); TOTAL CELLS COUNTED % (AUTO) 100 %; WHITE BLOOD COUNT 17.4 10^3/uL (4.0-10.5)
[2018-11-24 05:10] LABS: ANION GAP 9 (5-19); BLOOD UREA NITROGEN 36 mg/dL (7-20); CALCIUM 9.2 mg/dL (8.4-10.2); CARBON DIOXIDE 33 mmol/L (22-30); CHLORIDE 101 mmol/L (98-107); GLUCOSE 115 mg/dL (75-110); POTASSIUM 3.4 mmol/L (3.6-5.0); SODIUM 142.9 mmol/L (137-145)
[2018-11-24] MEDS: HEPARIN SOD (PORCINE) 5,000 UNIT/ML 1 ML SYRINGE SUBCUT SCH ×3 (05:58→22:09)
[2018-11-24] MEDS: BUDESONIDE NEB 0.5 MG/2 ML AMPUL NEB SCH ×2 (07:48→19:10)
[2018-11-24] MEDS: METOPROLOL TARTRATE 50 MG TABLET PO SCH ×2 (10:37→22:13)
[2018-11-24] MEDS: FUROSEMIDE 40 MG TABLET NG SCH (10:37)
[2018-11-24] MEDS: FAMOTIDINE 20 MG TABLET NG SCH ×2 (10:37→22:09)
[2018-11-24] MEDS: TAMSULOSIN HCL 0.4 MG CAP.SR.24H PO SCH (10:37)
[2018-11-24] MEDS: BUPROPION HCL 75 MG TABLET NG SCH ×2 (10:38→22:09)
[2018-11-24] MEDS: DOCUSATE SODIUM 100 MG/10 ML UDC NG SCH ×2 (10:38→17:58)
[2018-11-24] MEDS: FOLIC ACID/VITAMIN B COMP W-C CAPSULE NG SCH (10:38)
[2018-11-24] MEDS: PREDNISONE 20 MG TABLET PO SCH (10:38)
[2018-11-24] MEDS: ZIPRASIDONE HCL 40 MG CAPSULE PO SCH ×2 (10:44→22:09)
[2018-11-24] MEDS: THIAMINE HCL 100 MG TABLET NG SCH (10:44)
--- NOTE | 2018-11-24 15:05 | PDOC PROGRESS REPORT ---
Subjective Progress Note for:: 11/24/18 Subjective:: KAMERON TRUJILLO is a 58 year old male with a past medical history of alcohol abuse, hypertension, hepatic cirrhosis, chronic kidney disease, and COPD with oxygen dependence. Patient presents to the emergency department via EMS with altered mental status and subsequently history is obtained by the record. He is intubated by emergency department provider for a GCS of 3 with hypoxia and unprotected airway. Patient was noted by his at approximately 7:30 PM com plaining of feeling tired and found approximately 15 minutes later unresponsive. Patient's believed he had been drinking excessively. ABG reveals hypoxic and hypercapnic respiratory failure, chemistry reveals a potassium 7.5 without peak T waves, creatinine of 2.2, serum alcohol is 196. His latest potassium is 3.9 and his creatinine is 0.89. Patient has had intermittent confusion and agitation. He was extubated 2 days ago. He tolerated the procedure well. He is eating well and tolerates well. His agitation and confusion has subsided. Due to debility and deconditioning patient qualifies for short-term rehab less than 30 days. Reason For Visit: ACUTE RESP FAILURE, CKD, ETOH INTOX Physical Exam Vital Signs: Temp Pulse Resp BP Pulse Ox 98.8 F 88 18 122/84 93 11/24/18 12:58 11/24/18 14:15 11/24/18 14:15 11/24/18 12:58 11/24/18 14:15 Intake & Output 11/23/18 11/24/18 11/25/18 06:59 06:59 06:59 Intake Total 200 560 Output Total 1710 865 Balance -1510 -305 Weight 109.8 kg 88.6 kg General appearance: PRESENT: no acute distress Head exam: PRESENT: atraumatic Neck exam: ABSENT: carotid bruit, JVD, lymphadenopathy, thyromegaly Respiratory exam: PRESENT: clear to auscultation abi. ABSENT: rales, rhonchi, wheezes Cardiovascular exam: PRESENT: RRR. ABSENT: diastolic murmur, rubs, systolic murmur GI/Abdominal exam: PRESENT: normal bowel sounds, soft. ABSENT: distended, guarding, mass, organolmegaly, rebound, tenderness Neurological exam: PRESENT: alert, awake Results Laboratory Results: 11/24/18 04:23 11/24/18 04:23 11/24/18 11/24/18 04:23 04:23 WBC 17.4 H RBC 3.88 L Hgb 12.3 L Hct 37.1 L MCV 96 MCH 31.7 MCHC 33.2 RDW 13.9 Plt Count 479 H Seg Neutrophils % 76.6 Lymphocytes % 15.7 Monocytes % 6.3 Eosinophils % 1.2 Basophils % 0.2 Absolute Neutrophils 13.3 H Absolute Lymphocytes 2.7 Absolute Monocytes 1.1 Absolute Eosinophils 0.2 Absolute Basophils 0.0 Sodium 142.9 Potassium 3.4 L Chloride 101 Carbon Dioxide 33 H Anion Gap 9 BUN 36 H Creatinine 1.01 Est GFR ( Amer) > 60 Est GFR (Non-Af Amer) > 60 Glucose 115 H Calcium 9.2 Magnesium 2.3 11/10/18 11/10/18 11/10/18 23:20 23:20 23:20 Creatine Kinase 118 CK-MB (CK-2) 4.39 Troponin I 0.078 NT-Pro-B Natriuret Pep 426 11/11/18 11/11/18 11/11/18 05:00 05:00 11:12 Creatine Kinase 109 103 CK-MB (CK-2) 3.94 Troponin I 0.097 NT-Pro-B Natriuret Pep 11/11/18 11/14/18 11/22/18 11:12 04:08 18:38 Creatine Kinase 24 L CK-MB (CK-2) 3.86 Troponin I 0.067 NT-Pro-B Natriuret Pep 200 11/22/18 18:38 Creatine Kinase CK-MB (CK-2) 0.29 Troponin I < 0.012 NT-Pro-B Natriuret Pep Impressions: Cervical Spine CT 11/10/18 22:06 IMPRESSION: No acute cervical spinal fracture is identified. Multilevel degenerative change Head CT 11/10/18 22:06 IMPRESSION: No acute intracranial abnormality is identified. Chest X-Ray 11/23/18 06:00 IMPRESSION: No significant change. Assessment and Plan - Diagnosis (1) Acute alcohol intoxication with alcoholism Qualifiers: Complication of substance-induced condition: with delirium Qualified Code(s): F10.221 - Alcohol dependence with intoxication delirium Is this a current diagnosis for this admission?: Yes Plan: Patient is not withdrawing. (2) Acute and chronic respiratory failure with hypercapnia Is this a current diagnosis for this admission?: Yes Plan: Patient is currently status post extubation. (3) Acute kidney injury superimposed on chronic kidney disease Is this a current diagnosis for this admission?: Yes Plan: Resolving (4) Alcohol abuse Is this a current diagnosis for this admission?: Yes Plan: I will counseling encourage the patient to remain sober. (5) Altered mental status Qualifiers: Altered mental status type: coma Coma depth: [place] coma 3-8 Coma timing: in the field (EMT or ambulance) Qualified Code(s): R40.2431 - [place] coma scale score 3-8, in the field [EMT or ambulance] Is this a current diagnosis for this admission?: Yes Plan: Still patient is altered, agitated partly contributed by the different requirements like ICU. (6) Hyperkalemia Is this a current diagnosis for this admission?: Yes Plan: Resolved (7) Obesity (BMI 30-39.9) Is this a current diagnosis for this admission?: Yes Plan: Encourage diet and lifestyle modification.
[2018-11-24] MEDS: MONTELUKAST SODIUM 10 MG TABLET NG SCH (22:09)
[2018-11-25] MEDS: IPRATROPIUM/ALBUTEROL 0.5-2.5 MG/3 ML AMPUL NEB SCH ×3 (02:33→14:09)
[2018-11-25] MEDS ORDERED: ACETAMINOPHEN 325 MG TABLET PO PRN (03:00)
[2018-11-25] MEDS ORDERED: MAG HYDROX/AL HYDROX/SIMETH SUSP 30 ML UDCUP PO PRN (03:30)
[2018-11-25] MEDS ORDERED: PROMETHAZINE HCL 25 MG TABLET PO PRN (03:30)
[2018-11-25 03:48] LABS: HEMATOCRIT 37.6 % (37.9-51.0); HEMOGLOBIN 12.4 g/dL (13.5-17.0); MEAN CORPUSCULAR HEMOGLOBIN 31.6 pg (27.0-33.4); MEAN CORPUSCULAR HGB CONC 33.1 g/dL (32.0-36.0); MEAN CORPUSCULAR VOLUME 95 fl (80-97); RED BLOOD COUNT 3.94 10^6/uL (4.35-5.55); RED CELL DISTRIBUTION WIDTH 14.2 % (11.5-14.0); WHITE BLOOD COUNT 21.9 10^3/uL (4.0-10.5)
[2018-11-25 04:05] LABS: ANION GAP 9 (5-19); BLOOD UREA NITROGEN 33 mg/dL (7-20); CALCIUM 8.9 mg/dL (8.4-10.2); CARBON DIOXIDE 30 mmol/L (22-30); CHLORIDE 104 mmol/L (98-107); GLUCOSE 108 mg/dL (75-110); POTASSIUM 3.4 mmol/L (3.6-5.0)
[2018-11-25 04:10] LABS: ABSOLUTE LYMPHOCYTES# (MANUAL) 1.1 10^3/uL (0.5-4.7); ABSOLUTE NEUTROPHILS# (MANUAL) 20.8 10^3/uL (1.7-8.2); BASOPHILS % (MANUAL) 0 % (0-2); EOSINOPHILS % (MANUAL) 0 % (0-6); LYMPHOCYTES % (MANUAL) 5 % (13-45); MONOCYTES % (MANUAL) 0 % (3-13); PLATELET CLUMPS PRESENT; PLATELET COMMENT ADEQUATE; SEGMENTED NEUTROPHILS % (MAN) 95 % (42-78); TOTAL CELLS COUNTED 100
[2018-11-25 04:11] LABS: PLATELET COUNT 396 10^3/uL (150-450)
[2018-11-25 04:12] LABS: ANISOCYTOSIS SLIGHT; STOMATOCYTES 1+
[2018-11-25] MEDS: HEPARIN SOD (PORCINE) 5,000 UNIT/ML 1 ML SYRINGE SUBCUT SCH (05:09)
--- NOTE | 2018-11-25 08:41 | PDOC PROGRESS REPORT ---
Subjective Progress Note for:: 11/21/18 Subjective:: Patient 24 hours status post extubation Reason For Visit: ACUTE RESP FAILURE, CKD, ETOH INTOX Physical Exam Vital Signs: Temp Pulse Resp BP Pulse Ox 97.9 F 84 24 H 117/60 95 11/24/18 20:07 11/25/18 04:08 11/25/18 04:08 11/24/18 20:07 11/25/18 04:08 Intake & Output 11/24/18 11/25/18 11/26/18 06:59 06:59 06:59 Intake Total 560 1800 Output Total 865 Balance -305 1800 Weight 108.9 kg 109.3 kg General appearance: PRESENT: no acute distress, disheveled, morbidly obese Head exam: PRESENT: atraumatic, normocephalic Eye exam: PRESENT: conjunctiva pink, EOMI, PERRLA. ABSENT: scleral icterus Ear exam: PRESENT: normal external ear exam Mouth exam: PRESENT: moist, tongue midline Neck exam: ABSENT: carotid bruit, JVD, lymphadenopathy, thyromegaly Respiratory exam: PRESENT: decreased breath sounds, prolonged expiratory phas, rales, rhonchi Cardiovascular exam: PRESENT: RRR, +S1, +S2. ABSENT: diastolic murmur, rubs, systolic murmur Pulses: PRESENT: normal radial pulses Vascular exam: PRESENT: normal capillary refill GI/Abdominal exam: PRESENT: normal bowel sounds, soft. ABSENT: distended, guarding, mass, organolmegaly, rebound, tenderness Rectal exam: PRESENT: deferred Extremities exam: PRESENT: full ROM. ABSENT: calf tenderness, clubbing, pedal edema Neurological exam: PRESENT: awake Psychiatric exam: PRESENT: normal mood Skin exam: PRESENT: dry, intact, warm. ABSENT: cyanosis, rash Results Laboratory Results: 11/25/18 03:31 11/25/18 03:31 11/25/18 11/25/18 03:31 03:31 WBC 21.9 H RBC 3.94 L Hgb 12.4 L Hct 37.6 L MCV 95 MCH 31.6 MCHC 33.1 RDW 14.2 H Plt Count 396 Seg Neutrophils % Not Reportable Lymphocytes % Not Reportable Monocytes % Not Reportable Eosinophils % Not Reportable Basophils % Not Reportable Absolute Neutrophils Not Reportable Absolute Lymphocytes Not Reportable Absolute Monocytes Not Reportable Absolute Eosinophils Not Reportable Absolute Basophils Not Reportable Sodium 143.0 Potassium 3.4 L Chloride 104 Carbon Dioxide 30 Anion Gap 9 BUN 33 H Creatinine 0.97 Est GFR ( Amer) > 60 Est GFR (Non-Af Amer) > 60 Glucose 108 Calcium 8.9 Magnesium 2.2 11/10/18 11/10/18 11/10/18 23:20 23:20 23:20 Creatine Kinase 118 CK-MB (CK-2) 4.39 Troponin I 0.078 NT-Pro-B Natriuret Pep 426 11/11/18 11/11/18 11/11/18 05:00 05:00 11:12 Creatine Kinase 109 103 CK-MB (CK-2) 3.94 Troponin I 0.097 NT-Pro-B Natriuret Pep 11/11/18 11/14/18 11/22/18 11:12 04:08 18:38 Creatine Kinase 24 L CK-MB (CK-2) 3.86 Troponin I 0.067 NT-Pro-B Natriuret Pep 200 11/22/18 18:38 Creatine Kinase CK-MB (CK-2) 0.29 Troponin I < 0.012 NT-Pro-B Natriuret Pep Impressions: Cervical Spine CT 11/10/18 22:06 IMPRESSION: No acute cervical spinal fracture is identified. Multilevel degenerative change Head CT 11/10/18 22:06 IMPRESSION: No acute intracranial abnormality is identified. Chest X-Ray 11/23/18 06:00 IMPRESSION: No significant change. Assessment & Plan - Diagnosis (1) Acute alcohol intoxication with alcoholism Qualifiers: Complication of substance-induced condition: with delirium Qualified Code(s): F10.221 - Alcohol dependence with intoxication delirium Is this a current diagnosis for this admission?: Yes Plan: Stable no seizures (2) Acute and chronic respiratory failure with hypercapnia Is this a current diagnosis for this admission?: Yes Plan: Supplemental o2 via nasal canula as needed (3) COPD (chronic obstructive pulmonary disease) Qualifiers: Emphysema type: unspecified Is this a current diagnosis for this admission?: No Plan: Long acting beta agonist plus long-acting cholinergic would not add a inhaled corticosteroid at this time (4) Morbid obesity with BMI of 40.0-44.9, adult Is this a current diagnosis for this admission?: Yes Plan: Consider nutritional consult - Time Total Critical Time (Minutes): 40 Inpatient Scribe Statement - . Entered by Jessica Serra, acting as scribe for .
[2018-11-25] MEDS: BUDESONIDE NEB 0.5 MG/2 ML AMPUL NEB SCH (09:09)
[2018-11-25] MEDS ORDERED: THIAMINE HCL 100 MG TABLET PO SCH (10:00)
[2018-11-25] MEDS ORDERED: BUPROPION HCL 75 MG TABLET PO SCH (10:00)
[2018-11-25] MEDS ORDERED: FUROSEMIDE 40 MG TABLET PO SCH (10:00)
[2018-11-25] MEDS ORDERED: FAMOTIDINE 20 MG TABLET PO SCH (10:00)
[2018-11-25] MEDS ORDERED: DOCUSATE SODIUM 100 MG/10 ML UDC PO SCH (10:00)
[2018-11-25] MEDS ORDERED: FOLIC ACID/VITAMIN B COMP W-C CAPSULE PO SCH (10:00)
[2018-11-25] MEDS: PREDNISONE 20 MG TABLET PO SCH (11:27)
[2018-11-25] MEDS: ZIPRASIDONE HCL 40 MG CAPSULE PO SCH (11:27)
[2018-11-25] MEDS: METOPROLOL TARTRATE 50 MG TABLET PO SCH (11:30)
[2018-11-25] MEDS: TAMSULOSIN HCL 0.4 MG CAP.SR.24H PO SCH (11:33)
[2018-11-25 16:22] VITALS: BP 121/75
[2018-11-25] MEDS ORDERED: MONTELUKAST SODIUM 10 MG TABLET PO SCH (22:00)
--- NOTE | 2018-11-27 09:37 | PDOC DISCHARGE SUMMARY ---
General - Admit/Disc Date/PCP Admission Date/Primary Care Provider: 11/11/18 00:22 PASQUALE SANTANA MD Discharge Date: 11/25/18 - Additional Information Resuscitation Status: Full Code Discharge Diet: Cardiac, Diabetic Discharge Activity: Activity As Tolerated, Balance Activity w/Rest, Slowly Increase Activity Home Medications: Alprazolam [Xanax 0.5 mg Tablet] 0.5 mg PO Q8HP PRN 11/26/18 Bupropion HCl [Bupropion Xl] 150 mg PO QAM 11/26/18 Duloxetine HCl [Cymbalta] 60 mg PO Q12 11/26/18 Furosemide [Lasix 40 mg Tablet] 40 mg PO DAILY 11/26/18 Lisinopril 20 mg PO DAILY 11/26/18 Montelukast Sodium [Singulair 10 mg Tablet] 10 mg PO QPM 11/26/18 Potassium Chloride [Klor-Con 10 Meq Capsule ER] 10 meq PO DAILY 11/26/18 Tamsulosin HCl [Flomax 0.4 mg Cap.sr] 0.4 mg PO DAILY 11/26/18 History of Present Illness History of Present Illness: KAMERON TRUJILLO is a 58 year old male with a past medical history of alcohol abuse, hypertension, hepatic cirrhosis, chronic kidney disease, and COPD with oxygen dependence. Patient presents to the emergency department via EMS with altered mental status and subsequently history is obtained by the record. He is intubated by emergency department provider for a GCS of 3 with hypoxia and unprotected airway. Patient was noted by his at approximately 7:30 PM complaining of feeling tired and found approximately 15 minutes later unresponsive. Patient's believed he had been drinking excessively. ABG reveals hypoxic and hypercapnic respiratory failure, chemistry reveals a potassium 7.5 without peak T waves, creatinine of 2.2, serum alcohol is 196. Family is unavailable for interview. Hospital Course Hospital Course: KAMERON TRUJILLO is a 58 year old male with a past medical history of alcohol abuse, hypertension, hepatic cirrhosis, chronic kidney disease, and COPD with oxygen dependence. Patient presents to the emergency department 11/11/2018 via EMS for altered mental status. His BAL was 196. The patient is known to the hospitalist service, he has been admitted to [facility] multiple times in the past, as recently at earlier this month, for COPD exacerbation. The patient was initially intubated for hypercapnic/hypoxic respiratory failure, thought to be due to acute alcohol intoxication. The patient was sedated with propofol and his ETOH withdrawal symptoms were initially treated with Precedex gtt. This was noted to drop his blood pressure, he required Levophed briefly, Precedex was switched to Ativan gtt with PRN Haldol. Patient was extubated on 11/20/2018. He remained in the ICU for acute delirium and agitation until 11/24/2018. The patient was sent to [facility]. On the , the patient was awake, alert and oriented, demanding to be discharged home. The patient was able to ambulate while on home dose supplemental O2 via nasal cannula, maintaining SPO2 > 88%. The patient was advised against early discharge and the risks of readmission associated with leaving the hospital before completely rehabilitated. The patient was very adamant upon leaving. The patient was sent home with prescriptions for a prednisone taper, new dosing of his metoprolol, wellbutrin and a nicotine patch. The patient was encouraged to stop smoking and drinking. He stated understanding. For further information regarding this patient's hospitalization, please refer to the EMR. Physical Exam Vital Signs: Temp Pulse Resp BP Pulse Ox 98.2 F 77 20 121/75 93 11/25/18 16:18 11/25/18 16:18 11/25/18 16:18 11/25/18 16:18 11/25/18 16:18 Intake & Output 11/26/18 11/27/18 11/28/18 06:59 06:59 06:59 Intake Total 240 Balance 240 General appearance: PRESENT: obese Eye exam: PRESENT: PERRLA Mouth exam: PRESENT: moist, tongue midline Teeth exam: PRESENT: poor dentation Neck exam: PRESENT: full ROM Respiratory exam: PRESENT: symmetrical, unlabored, wheezes - very mild b/l wheezing Cardiovascular exam: PRESENT: RRR Pulses: PRESENT: normal radial pulses, normal dorsalis pedis pul Vascular exam: PRESENT: normal capillary refill GI/Abdominal exam: PRESENT: distended, soft. ABSENT: tenderness Rectal exam: PRESENT: deferred Extremities exam: PRESENT: full ROM, pedal edema Musculoskeletal exam: PRESENT: ambulatory, full ROM Neurological exam: PRESENT: alert, awake, oriented to person, oriented to place, oriented to time, oriented to situation Psychiatric exam: PRESENT: anxious, appropriate affect Skin exam: PRESENT: dry, intact, normal color Results Laboratory Results: 11/25/18 03:31 11/25/18 03:31 11/10/18 11/10/18 11/10/18 23:20 23:20 23:20 Creatine Kinase 118 CK-MB (CK-2) 4.39 Troponin I 0.078 NT-Pro-B Natriuret Pep 426 11/11/18 11/11/18 11/11/18 05:00 05:00 11:12 Creatine Kinase 109 103 CK-MB (CK-2) 3.94 Troponin I 0.097 NT-Pro-B Natriuret Pep 11/11/18 11/14/18 11/22/18 11:12 04:08 18:38 Creatine Kinase 24 L CK-MB (CK-2) 3.86 Troponin I 0.067 NT-Pro-B Natriuret Pep 200 11/22/18 18:38 Creatine Kinase CK-MB (CK-2) 0.29 Troponin I < 0.012 NT-Pro-B Natriuret Pep Impressions: Cervical Spine CT 11/10/18 22:06 IMPRESSION: No acute cervical spinal fracture is identified. Multilevel degenerative change Head CT 11/10/18 22:06 IMPRESSION: No acute intracranial abnormality is identified. Chest X-Ray 11/23/18 06:00 IMPRESSION: No significant change. Status: Imported from PACS Qualifiers - * PATIENT BEING DISCHARGED WITH ANY OF THE FOLLOWING DIAGNOSIS: No Acute Heart Failure Is this a Heart Failure Patient?: No Plan Time Spent: Greater than 30 Minutes
--- NOTE | 2018-11-27 15:04 | PDOC PROGRESS REPORT ---
Subjective Progress Note for:: 11/21/18 Subjective:: STable Reason For Visit: ACUTE RESP FAILURE, CKD, ETOH INTOX Physical Exam Vital Signs: Temp Pulse Resp BP Pulse Ox 99.3 F 65 39 H 151/92 H 98 11/21/18 08:00 11/21/18 08:00 11/21/18 08:12 11/21/18 08:00 11/21/18 08:12 Intake & Output 11/20/18 11/21/18 11/22/18 06:59 06:59 06:59 Intake Total 1366 247 Output Total 6015 2530 145 Balance -909 -2283 -145 Weight 113.4 kg 111.4 kg General appearance: PRESENT: no acute distress, disheveled, obese Head exam: PRESENT: atraumatic, normocephalic Eye exam: PRESENT: conjunctiva pale, EOMI. ABSENT: nystagmus, periorbital swelling Mouth exam: PRESENT: moist, neck supple, tongue midline Neck exam: ABSENT: carotid bruit, full ROM, JVD, lymphadenopathy, meningismus, tenderness, thyromegaly, tracheal deviation, tracheostomy, other Respiratory exam: PRESENT: decreased breath sounds, prolonged expiratory phas, rhonchi, unlabored. ABSENT: retraction, stridor Cardiovascular exam: PRESENT: irregular rhythm Pulses: PRESENT: normal radial pulses GI/Abdominal exam: PRESENT: diminished bowel sounds, soft. ABSENT: mass, tenderness Extremities exam: PRESENT: pedal edema. ABSENT: calf tenderness, clubbing, full ROM, joint swelling Musculoskeletal exam: ABSENT: ambulatory, deformity, dislocation Neurological exam: PRESENT: altered Skin exam: PRESENT: dry, warm Results Laboratory Results: 11/21/18 04:07 11/21/18 04:07 11/20/18 11/20/18 11/21/18 12:30 15:00 03:40 WBC RBC Hgb Hct MCV MCH MCHC RDW Plt Count Seg Neutrophils % Lymphocytes % Monocytes % Eosinophils % Basophils % Absolute Neutrophils Absolute Lymphocytes Absolute Monocytes Absolute Eosinophils Absolute Basophils Carbonic Acid 1.47 H 1.26 1.44 H HCO3/H2CO3 Ratio 20:1 22:1 20:1 ABG pH 7.41 7.45 7.40 ABG pCO2 49.0 H 41.9 48.0 H ABG pO2 91.9 93.5 59.5 L ABG HCO3 30.3 H 28.3 H 29.3 H ABG O2 Saturation 97.0 97.4 90.7 L ABG Base Excess 4.7 3.8 3.8 FiO2 30% 30% 40% Sodium Potassium Chloride Carbon Dioxide Anion Gap BUN Creatinine Est GFR ( Amer) Est GFR (Non-Af Amer) Glucose Calcium Magnesium 11/21/18 11/21/18 11/21/18 04:07 04:07 07:43 WBC 15.8 H RBC 4.01 L Hgb 12.6 L Hct 38.3 MCV 96 MCH 31.4 MCHC 32.9 RDW 14.1 H Plt Count 542 H Seg Neutrophils % 79.4 H Lymphocytes % 10.7 L Monocytes % 9.6 Eosinophils % 0.1 Basophils % 0.2 Absolute Neutrophils 12.5 H Absolute Lymphocytes 1.7 Absolute Monocytes 1.5 H Absolute Eosinophils 0.0 Absolute Basophils 0.0 Carbonic Acid 1.47 H HCO3/H2CO3 Ratio 19:1 ABG pH 7.39 ABG pCO2 49.0 H ABG pO2 139.1 H ABG HCO3 29.3 H ABG O2 Saturation 98.7 H ABG Base Excess 3.5 FiO2 50% Sodium 145.9 H Potassium 4.1 Chloride 107 Carbon Dioxide 28 Anion Gap 11 BUN 36 H Creatinine 1.14 Est GFR ( Amer) > 60 Est GFR (Non-Af Amer) > 60 Glucose 114 H Calcium 9.2 Magnesium 2.5 H 11/10/18 11/10/18 11/10/18 23:20 23:20 23:20 Creatine Kinase 118 CK-MB (CK-2) 4.39 Troponin I 0.078 NT-Pro-B Natriuret Pep 426 11/11/18 11/11/18 11/11/18 05:00 05:00 11:12 Creatine Kinase 109 103 CK-MB (CK-2) 3.94 Troponin I 0.097 NT-Pro-B Natriuret Pep 11/11/18 11/14/18 11:12 04:08 Creatine Kinase CK-MB (CK-2) 3.86 Troponin I 0.067 NT-Pro-B Natriuret Pep 200 Impressions: Cervical Spine CT 11/10/18 22:06 IMPRESSION: No acute cervical spinal fracture is identified. Multilevel degenerative change Head CT 11/10/18 22:06 IMPRESSION: No acute intracranial abnormality is identified. Chest X-Ray 11/21/18 06:00 IMPRESSION: Interval extubation. Assessment & Plan - Diagnosis (1) Acute alcohol intoxication with alcoholism Qualifiers: Complication of substance-induced condition: with delirium Qualified Code(s): F10.221 - Alcohol dependence with intoxication delirium Is this a current diagnosis for this admission?: Yes (2) Acute and chronic respiratory failure with hypercapnia Is this a current diagnosis for this admission?: Yes Plan: Continues to improve approaching baseline (3) Obesity (BMI 30-39.9) Is this a current diagnosis for this admission?: Yes Plan: Consider nutritional consult (4) COPD (chronic obstructive pulmonary disease) Qualifiers: Emphysema type: unspecified Is this a current diagnosis for this admission?: No Plan: Long-acting beta agonist plus long-acting cholinergic would not add a inhaled corticosteroids at this time (5) Pleural effusion Is this a current diagnosis for this admission?: Yes Plan: Thoracentesis ? - Time Total Critical Time (Minutes): 40
--- NOTE | 2018-11-27 15:05 | PDOC PROGRESS REPORT ---
Subjective Progress Note for:: 11/22/18 Subjective:: s/p extubation Reason For Visit: ACUTE RESP FAILURE, CKD, ETOH INTOX Physical Exam Vital Signs: Temp Pulse Resp BP Pulse Ox 99.3 F 67 31 H 138/94 H 95 11/22/18 11:58 11/22/18 11:58 11/22/18 11:58 11/22/18 11:58 11/22/18 11:58 Intake & Output 11/21/18 11/22/18 11/23/18 06:59 06:59 06:59 Intake Total 247 400 Output Total 9830 7710 495 Balance -2283 -2420 -495 Weight 111.4 kg 107.3 kg General appearance: PRESENT: no acute distress, disheveled, morbidly obese Head exam: PRESENT: atraumatic, normocephalic Eye exam: PRESENT: conjunctiva pale, EOMI. ABSENT: nystagmus, periorbital swelling Mouth exam: PRESENT: moist, neck supple, tongue midline Neck exam: ABSENT: carotid bruit, full ROM, JVD, lymphadenopathy, meningismus, tenderness, thyromegaly, tracheal deviation, tracheostomy, other Respiratory exam: PRESENT: decreased breath sounds, prolonged expiratory phas, rhonchi, unlabored, wheezes. ABSENT: retraction, stridor Cardiovascular exam: PRESENT: irregular rhythm Pulses: PRESENT: normal radial pulses GI/Abdominal exam: PRESENT: diminished bowel sounds, soft. ABSENT: mass, tenderness Extremities exam: PRESENT: pedal edema. ABSENT: calf tenderness, clubbing, full ROM, joint swelling Musculoskeletal exam: ABSENT: ambulatory, deformity, dislocation Neurological exam: PRESENT: altered Skin exam: PRESENT: dry, warm Results Laboratory Results: 11/22/18 03:32 11/22/18 03:32 11/21/18 11/22/18 11/22/18 18:15 03:32 03:32 WBC 12.4 H RBC 4.21 L Hgb 13.5 Hct 40.3 MCV 96 MCH 32.1 MCHC 33.6 RDW 13.9 Plt Count 461 H Seg Neutrophils % 84.1 H Lymphocytes % 10.3 L Monocytes % 5.5 Eosinophils % 0.1 Basophils % 0.0 Absolute Neutrophils 10.5 H Absolute Lymphocytes 1.3 Absolute Monocytes 0.7 Absolute Eosinophils 0.0 Absolute Basophils 0.0 Carbonic Acid 1.64 H HCO3/H2CO3 Ratio 18:1 ABG pH 7.36 ABG pCO2 54.5 H ABG pO2 126.9 H ABG HCO3 30.4 H ABG O2 Saturation 98.4 H ABG Base Excess 3.8 FiO2 40% Sodium 145.3 H Potassium 4.2 Chloride 104 Carbon Dioxide 31 H Anion Gap 10 BUN 36 H Creatinine 0.95 Est GFR ( Amer) > 60 Est GFR (Non-Af Amer) > 60 Glucose 104 Calcium 9.8 Magnesium 2.6 H 11/22/18 04:59 WBC RBC Hgb Hct MCV MCH MCHC RDW Plt Count Seg Neutrophils % Lymphocytes % Monocytes % Eosinophils % Basophils % Absolute Neutrophils Absolute Lymphocytes Absolute Monocytes Absolute Eosinophils Absolute Basophils Carbonic Acid 1.54 H HCO3/H2CO3 Ratio 19:1 ABG pH 7.38 ABG pCO2 51.2 H ABG pO2 131.2 H ABG HCO3 29.5 H ABG O2 Saturation 98.5 H ABG Base Excess 3.3 FiO2 40% Sodium Potassium Chloride Carbon Dioxide Anion Gap BUN Creatinine Est GFR ( Amer) Est GFR (Non-Af Amer) Glucose Calcium Magnesium 11/10/18 11/10/18 11/10/18 23:20 23:20 23:20 Creatine Kinase 118 CK-MB (CK-2) 4.39 Troponin I 0.078 NT-Pro-B Natriuret Pep 426 11/11/18 11/11/18 11/11/18 05:00 05:00 11:12 Creatine Kinase 109 103 CK-MB (CK-2) 3.94 Troponin I 0.097 NT-Pro-B Natriuret Pep 11/11/18 11/14/18 11:12 04:08 Creatine Kinase CK-MB (CK-2) 3.86 Troponin I 0.067 NT-Pro-B Natriuret Pep 200 Impressions: Cervical Spine CT 11/10/18 22:06 IMPRESSION: No acute cervical spinal fracture is identified. Multilevel degenerative change Head CT 11/10/18 22:06 IMPRESSION: No acute intracranial abnormality is identified. Chest X-Ray 11/22/18 06:00 IMPRESSION: No significant change. Assessment & Plan - Diagnosis (1) Acute alcohol intoxication with alcoholism Qualifiers: Complication of substance-induced condition: with delirium Qualified Code(s): F10.221 - Alcohol dependence with intoxication delirium Is this a current diagnosis for this admission?: Yes Plan: Evidence of DTs at this time (2) Acute and chronic respiratory failure with hypercapnia Is this a current diagnosis for this admission?: Yes Plan: Continues to improve approaching baseline (3) Obesity (BMI 30-39.9) Is this a current diagnosis for this admission?: Yes Plan: Consider nutritional consult (4) COPD (chronic obstructive pulmonary disease) Qualifiers: Emphysema type: unspecified Is this a current diagnosis for this admission?: No Plan: Long-acting beta agonist plus long-acting cholinergic would not add a inhaled corticosteroids at this time (5) Pleural effusion Is this a current diagnosis for this admission?: Yes Plan: Thoracentesis ? - Time Total Critical Time (Minutes): 40
--- NOTE | 2018-11-27 15:08 | PDOC PROGRESS REPORT ---
Subjective Progress Note for:: 11/23/18 Subjective:: STable Reason For Visit: ACUTE RESP FAILURE, CKD, ETOH INTOX Physical Exam Vital Signs: Temp Pulse Resp BP Pulse Ox 99.5 F 72 27 H 126/74 H 92 11/23/18 10:00 11/23/18 10:00 11/23/18 10:00 11/23/18 10:00 11/23/18 10:00 Intake & Output 11/22/18 11/23/18 11/24/18 06:59 06:59 06:59 Intake Total 400 200 Output Total 2820 1710 240 Balance -2420 -1510 -240 Weight 107.3 kg 109.8 kg General appearance: PRESENT: no acute distress, disheveled, morbidly obese Head exam: PRESENT: atraumatic, normocephalic Eye exam: PRESENT: conjunctiva pale, EOMI. ABSENT: nystagmus, periorbital swelling Mouth exam: PRESENT: moist, neck supple, tongue midline Neck exam: ABSENT: carotid bruit, full ROM, JVD, lymphadenopathy, meningismus, tenderness, thyromegaly, tracheal deviation, tracheostomy, other Respiratory exam: PRESENT: decreased breath sounds, prolonged expiratory phas, rhonchi, unlabored, wheezes. ABSENT: retraction, stridor Cardiovascular exam: PRESENT: irregular rhythm Pulses: PRESENT: normal radial pulses GI/Abdominal exam: PRESENT: soft. ABSENT: mass, tenderness Gentrourinary exam: PRESENT: indwelling catheter Extremities exam: PRESENT: pedal edema. ABSENT: calf tenderness, clubbing, full ROM, joint swelling Musculoskeletal exam: ABSENT: ambulatory, deformity, dislocation Neurological exam: PRESENT: altered Skin exam: PRESENT: dry, warm Results Laboratory Results: 11/23/18 03:38 11/23/18 03:38 11/22/18 11/23/18 11/23/18 16:00 03:38 03:38 WBC 16.4 H RBC 3.97 L Hgb 12.5 L Hct 37.7 L MCV 95 MCH 31.5 MCHC 33.1 RDW 13.7 Plt Count 531 H Seg Neutrophils % 82.0 H Lymphocytes % 11.8 L Monocytes % 5.5 Eosinophils % 0.5 Basophils % 0.2 Absolute Neutrophils 13.4 H Absolute Lymphocytes 1.9 Absolute Monocytes 0.9 Absolute Eosinophils 0.1 Absolute Basophils 0.0 Carbonic Acid 1.80 H HCO3/H2CO3 Ratio 17:1 ABG pH 7.34 L ABG pCO2 59.7 H ABG pO2 92.1 ABG HCO3 31.8 H ABG O2 Saturation 96.5 ABG Base Excess 4.4 FiO2 2L Sodium 141.8 Potassium 3.9 Chloride 102 Carbon Dioxide 30 Anion Gap 10 BUN 37 H Creatinine 0.89 Est GFR ( Amer) > 60 Est GFR (Non-Af Amer) > 60 Glucose 106 Calcium 9.3 Magnesium 2.5 H Total Bilirubin 0.4 AST 26 ALT 103 H Alkaline Phosphatase 84 Total Protein 5.8 L Albumin 3.2 L 11/23/18 05:15 WBC RBC Hgb Hct MCV MCH MCHC RDW Plt Count Seg Neutrophils % Lymphocytes % Monocytes % Eosinophils % Basophils % Absolute Neutrophils Absolute Lymphocytes Absolute Monocytes Absolute Eosinophils Absolute Basophils Carbonic Acid 1.60 H HCO3/H2CO3 Ratio 20:1 ABG pH 7.41 ABG pCO2 53.3 H ABG pO2 94.0 ABG HCO3 33.3 H ABG O2 Saturation 97.1 ABG Base Excess 7.2 FiO2 2 LPM Sodium Potassium Chloride Carbon Dioxide Anion Gap BUN Creatinine Est GFR ( Amer) Est GFR (Non-Af Amer) Glucose Calcium Magnesium Total Bilirubin AST ALT Alkaline Phosphatase Total Protein Albumin 11/10/18 11/10/18 11/10/18 23:20 23:20 23:20 Creatine Kinase 118 CK-MB (CK-2) 4.39 Troponin I 0.078 NT-Pro-B Natriuret Pep 426 11/11/18 11/11/18 11/11/18 05:00 05:00 11:12 Creatine Kinase 109 103 CK-MB (CK-2) 3.94 Troponin I 0.097 NT-Pro-B Natriuret Pep 11/11/18 11/14/18 11/22/18 11:12 04:08 18:38 Creatine Kinase 24 L CK-MB (CK-2) 3.86 Troponin I 0.067 NT-Pro-B Natriuret Pep 200 11/22/18 18:38 Creatine Kinase CK-MB (CK-2) 0.29 Troponin I < 0.012 NT-Pro-B Natriuret Pep Impressions: Cervical Spine CT 11/10/18 22:06 IMPRESSION: No acute cervical spinal fracture is identified. Multilevel degenerative change Head CT 11/10/18 22:06 IMPRESSION: No acute intracranial abnormality is identified. Chest X-Ray 11/23/18 06:00 IMPRESSION: No significant change. Assessment & Plan - Diagnosis (1) Acute alcohol intoxication with alcoholism Qualifiers: Complication of substance-induced condition: with delirium Qualified Code(s): F10.221 - Alcohol dependence with intoxication delirium Is this a current diagnosis for this admission?: Yes Plan: Evidence of DTs at this time (2) Acute and chronic respiratory failure with hypercapnia Is this a current diagnosis for this admission?: Yes Plan: Continues to improve approaching baseline (3) Obesity (BMI 30-39.9) Is this a current diagnosis for this admission?: Yes Plan: Consider nutritional consult (4) COPD (chronic obstructive pulmonary disease) Qualifiers: Emphysema type: unspecified Is this a current diagnosis for this admission?: Yes Plan: Long-acting beta agonist plus long-acting cholinergic would not add a inhaled corticosteroids at this time (5) Pleural effusion Is this a current diagnosis for this admission?: Yes Plan: Thoracentesis ? - Time Total Critical Time (Minutes): 40
--- NOTE | 2018-11-27 15:10 | PDOC PROGRESS REPORT ---
Subjective Progress Note for:: 11/24/18 Subjective:: STable Reason For Visit: ACUTE RESP FAILURE, CKD, ETOH INTOX Physical Exam Vital Signs: Temp Pulse Resp BP Pulse Ox 98.2 F 77 20 121/75 93 11/25/18 16:18 11/25/18 16:18 11/25/18 16:18 11/25/18 16:18 11/25/18 16:18 Intake & Output 11/26/18 11/27/18 11/28/18 06:59 06:59 06:59 Intake Total 240 Balance 240 General appearance: PRESENT: no acute distress, cooperative, disheveled, morbidly obese Head exam: PRESENT: atraumatic, normocephalic Eye exam: PRESENT: conjunctiva pale, EOMI. ABSENT: nystagmus Mouth exam: PRESENT: moist, neck supple Neck exam: ABSENT: carotid bruit, full ROM, JVD, lymphadenopathy, meningismus, tenderness, thyromegaly, tracheal deviation, tracheostomy, other Respiratory exam: PRESENT: decreased breath sounds, prolonged expiratory phas, rhonchi, unlabored, wheezes. ABSENT: retraction, symmetrical Cardiovascular exam: PRESENT: irregular rhythm Pulses: PRESENT: normal radial pulses GI/Abdominal exam: PRESENT: soft. ABSENT: mass, tenderness Gentrourinary exam: PRESENT: indwelling catheter Extremities exam: PRESENT: pedal edema. ABSENT: calf tenderness, clubbing, full ROM, joint swelling Musculoskeletal exam: ABSENT: ambulatory, deformity, dislocation Neurological exam: PRESENT: awake Psychiatric exam: PRESENT: appropriate affect Skin exam: PRESENT: dry, warm Results Laboratory Results: 11/25/18 03:31 11/25/18 03:31 11/10/18 11/10/18 11/10/18 23:20 23:20 23:20 Creatine Kinase 118 CK-MB (CK-2) 4.39 Troponin I 0.078 NT-Pro-B Natriuret Pep 426 11/11/18 11/11/18 11/11/18 05:00 05:00 11:12 Creatine Kinase 109 103 CK-MB (CK-2) 3.94 Troponin I 0.097 NT-Pro-B Natriuret Pep 11/11/18 11/14/18 11/22/18 11:12 04:08 18:38 Creatine Kinase 24 L CK-MB (CK-2) 3.86 Troponin I 0.067 NT-Pro-B Natriuret Pep 200 11/22/18 18:38 Creatine Kinase CK-MB (CK-2) 0.29 Troponin I < 0.012 NT-Pro-B Natriuret Pep Impressions: Cervical Spine CT 11/10/18 22:06 IMPRESSION: No acute cervical spinal fracture is identified. Multilevel degenerative change Head CT 11/10/18 22:06 IMPRESSION: No acute intracranial abnormality is identified. Chest X-Ray 11/23/18 06:00 IMPRESSION: No significant change. Assessment & Plan - Diagnosis (1) Acute alcohol intoxication with alcoholism Qualifiers: Complication of substance-induced condition: with delirium Qualified Code(s): F10.221 - Alcohol dependence with intoxication delirium Is this a current diagnosis for this admission?: Yes Plan: Evidence of DTs at this time (2) Acute and chronic respiratory failure with hypercapnia Is this a current diagnosis for this admission?: Yes Plan: Continues to improve approaching baseline (3) Obesity (BMI 30-39.9) Is this a current diagnosis for this admission?: Yes Plan: Consider nutritional consult (4) COPD (chronic obstructive pulmonary disease) Qualifiers: Emphysema type: unspecified Is this a current diagnosis for this admission?: Yes Plan: Long-acting beta agonist plus long-acting cholinergic would not add a inhaled corticosteroids at this time (5) Pleural effusion Is this a current diagnosis for this admission?: Yes Plan: Thoracentesis ? - Time Total Critical Time (Minutes): 40
== END 2018-11-25 16:40 | disposition home or self-care (01) | DRG 207 ==
LOC: ER 21:33 → EH 11-11 00:22 → ICU 11-11 03:10 → 4N 11-23 20:13
PROVIDERS: ADMIT Internal Medicine; ATTEND Internal Medicine
PROC: 5A1955Z Respiratory Ventilation, Greater than 96 Consecutive Hours (ICD-10-PCS; principal; 2018-11-11)
PROC: 0BH17EZ Insertion of Endotracheal Airway into Trachea, Via Natural or Artificial Opening (ICD-10-PCS; 2018-11-11)
DX: J96.22 Acute and chronic respiratory failure with hypercapnia (principal); F10.221 Alcohol dependence with intoxication delirium; N17.9 Acute kidney failure, unspecified; J44.1 Chronic obstructive pulmonary disease with (acute) exacerbation; N30.00 Acute cystitis without hematuria; E87.5 Hyperkalemia; Y90.6 Blood alcohol level of 120-199 mg/100 ml; F32.9 Major depressive disorder, single episode, unspecified; E66.9 Obesity, unspecified; I95.9 Hypotension, unspecified; Z99.81 Dependence on supplemental oxygen; J96.01 Acute respiratory failure with hypoxia; I12.9 Hypertensive chronic kidney disease with stage 1 through stage 4 chronic kidney disease, or unspecified chronic kidney disease; R40.2431 Glasgow coma scale score 3-8, in the field [EMT or ambulance]; N18.9 Chronic kidney disease, unspecified; B96.20 Unspecified Escherichia coli [E. coli] as the cause of diseases classified elsewhere; Z68.36 Body mass index [BMI] 36.0-36.9, adult; K74.60 Unspecified cirrhosis of liver; F17.210 Nicotine dependence, cigarettes, uncomplicated; B95.2 Enterococcus as the cause of diseases classified elsewhere; Z78.1 Physical restraint status
CPT/HCPCS: 36415; 51702; 70450; 71045; 72125; 80048; 80053; 80307; 81001; 82550; 82553; 82803; 82962; 83605; 83690; 83735; 83880; 84100; 84132; 84443; 84484; 85025; 87040; 87070; 87077; 87086; 87088; 87186; 87205; 87491; 87591; 93005; 93010; 94002; 94003; 94640; 94660; 94667; 94668; 94799; 96361; 96374; 99291; 99292; B4155; C1758; J0295; J0360; J0610; J0696; J0743; J1170; J1630; J1644; J1815; J1940; J2060; J2250; J2543; J2704; J2765; J2920; J2930; J3010; J3475; J3480; J3490; J7030; J7042; J7050; J7060; J7120; J7512; J7620

== ENCOUNTER 2018-11-26 11:09 | Inpatient (IN) | payer BC ==
--- NOTE | 2018-11-26 12:14 | RADIOLOGY REPORT (SQ) ---
EXAM DESCRIPTION: CHEST SINGLE VIEW COMPLETED DATE/TIME: 11/26/2018 12:02 pm REASON FOR STUDY: bed 16h db COMPARISON: 11/23/2018 NUMBER OF VIEWS: One view. TECHNIQUE: Single frontal radiographic view of the chest acquired. LIMITATIONS: None. FINDINGS: LUNGS AND PLEURA: No opacities, masses or pneumothorax. No pleural effusion. MEDIASTINUM AND HILAR STRUCTURES: No masses. Contour normal. HEART AND VASCULAR STRUCTURES: Heart enlarged without failure. Normal vasculature. BONES: No acute findings. HARDWARE: None in the chest. OTHER: No other significant finding. IMPRESSION: HEART ENLARGED WITHOUT FAILURE. NO OTHER SIGNIFICANT RADIOGRAPHIC FINDING IN THE CHEST. TECHNICAL DOCUMENTATION: JOB ID: [id number] [employer]- All Rights Reserved Reading location - IP/workstation name: [email or web address]
[2018-11-26 12:32] LABS: ABSOLUTE BASOPHILS # (AUTO) 0.1 10^3/uL (0.0-0.2); ABSOLUTE EOSINOPHILS # (AUTO) 0.4 10^3/uL (0.0-0.6); ABSOLUTE LYMPHOCYTES (AUTO) 2.6 10^3/uL (0.5-4.7); ABSOLUTE MONOCYTES (AUTO) 1.5 10^3/uL (0.1-1.4); ABSOLUTE NEUT (AUTO) 9.6 10^3/uL (1.7-8.2); BASOPHILS % (AUTO) 0.7 % (0-2); EOSINOPHILS % (AUTO) 2.7 % (0-6); HEMATOCRIT 37.7 % (37.9-51.0); HEMOGLOBIN 12.1 g/dL (13.5-17.0); LYMPHOCYTES % (AUTO) 18.3 % (13-45); MEAN CORPUSCULAR HEMOGLOBIN 31.3 pg (27.0-33.4); MEAN CORPUSCULAR HGB CONC 32.2 g/dL (32.0-36.0); MEAN CORPUSCULAR VOLUME 98 fl (80-97); MONOCYTES % (AUTO) 10.3 % (3-13); PLATELET COUNT 485 10^3/uL (150-450); RED BLOOD COUNT 3.87 10^6/uL (4.35-5.55); RED CELL DISTRIBUTION WIDTH 14.2 % (11.5-14.0); TOTAL CELLS COUNTED % (AUTO) 100 %; WHITE BLOOD COUNT 14.1 10^3/uL (4.0-10.5)
[2018-11-26 13:14] LABS: ALANINE AMINOTRANSFERASE 57 U/L (21-72); ALBUMIN 3.3 g/dL (3.5-5.0); ALKALINE PHOSPHATASE 81 U/L (38-126); ANION GAP 7 (5-19); ASPARTATE AMINO TRANSFERASE 21 U/L (17-59); BILIRUBIN,DIRECT 0.2 mg/dL (0.0-0.4); BILIRUBIN,TOTAL 0.2 mg/dL (0.2-1.3); BLOOD UREA NITROGEN 22 mg/dL (7-20); CALCIUM 9.2 mg/dL (8.4-10.2); CARBON DIOXIDE 34 mmol/L (22-30); CHLORIDE 103 mmol/L (98-107); CREATINE KINASE 25 U/L (55-170); GLUCOSE 108 mg/dL (75-110); POTASSIUM 3.2 mmol/L (3.6-5.0); SODIUM 143.9 mmol/L (137-145); TOTAL PROTEIN 6.1 g/dL (6.3-8.2)
[2018-11-26] MEDS ORDERED: ASPIRIN 81 MG TABLET, CHEWABLE PO ONE (13:14)
[2018-11-26 13:19] LABS: CREATINE KINASE MB 0.43 ng/mL (<4.55)
[2018-11-26 13:21] LABS: TROPONIN I < 0.012 ng/mL
[2018-11-26 14:19] LABS: ARTERIAL BLOOD BASE EXCESS 5.9 mmol/L; ARTERIAL BLOOD H2CO3 1.86 mmol/L (1.05-1.35); ARTERIAL BLOOD HCO3 33.3 mmol/L (20-24); ARTERIAL BLOOD PCO2 61.7 mmHg (35-45); ARTERIAL BLOOD PH 7.35 (7.35-7.45); ARTERIAL BLOOD PO2 61.9 mmHg (80-100); ARTERIAL BLOOD TOTAL CO2 35.2 mmol/L (23-27)
[2018-11-26 14:20] LABS: ARTERIAL BLOOD FIO2 2L
[2018-11-26 15:54] LABS: APPEARANCE,URINE TURBID; BILIRUBIN,URINE NEGATIVE (NEGATIVE); COLOR,URINE AMBER; GLUCOSE, URINE NEGATIVE (NEGATIVE); KETONES,URINE NEGATIVE (NEGATIVE); LEUKOCYTE ESTERASE,URINE LARGE (NEGATIVE); NITRITE,URINE NEGATIVE (NEGATIVE); PROTEIN,URINE 30 mg/dL (NEGATIVE); URINE SPECIFIC GRAVITY 1.023; UROBILINOGEN,URINE NEGATIVE mg/dL (<2.0)
[2018-11-26] MEDS ORDERED: CEFTRIAXONE 1 GM/D5W RTU 1 GM/50 ML RTUPB IV ONE (16:38)
--- NOTE | 2018-11-26 17:02 | ER Document Report ---
ED General - General Chief Complaint: Shortness Of Breath Stated Complaint: DIFFICULTY BREATHING/PSYCH EVAL Time Seen by Provider: 11/26/18 12:28 TRAVEL OUTSIDE OF THE [place] IN LAST 30 DAYS: No - HPI Notes: Patient presents emergency department for evaluation. Initially EMS was called secondary to altered mental status. They went to evaluate the patient, and had decided that they were going to bring him to the hospital. The patient then began to complain of shortness of breath. At that point he was brought into the ED for further evaluation. The patient states he has had some chest tightness but it is improved since resting. He denies any fevers or chills. No nausea or vomiting. States has been taking his medications as prescribed. - Related Data Allergies/Adverse Reactions: No Known Allergies Allergy (Verified 10/21/17 13:20) Past Medical History - General Information source: Patient - Social History Smoking Status: Current Every Day Smoker Frequency of alcohol use: Heavy Drug Abuse: None Family History: Reviewed & Not Pertinent, Hypertension Patient has suicidal ideation: No Patient has homicidal ideation: No - Past Medical History Cardiac Medical History: Reports: Hx Hypertension Denies: Hx Atrial Fibrillation, Hx Congestive Heart Failure Pulmonary Medical History: Reports: Hx COPD, Hx Intubation, Hx Respiratory Failure Endocrine Medical History: Denies: Hx Diabetes Mellitus Type 1, Hx Diabetes Mellitus Type 2 Renal/ Medical History: Denies: Hx Peritoneal Dialysis GI Medical History: Reports: Hx Cirrhosis Musculoskeletal Medical History: Denies Hx Fibromyalgia Psychiatric Medical History: Reports: Hx Depression Traumatic Medical History: Denies: Hx Gunshot Wound Infectious Medical History: Denies: Hx C-Diff Past Surgical History: Reports: Other - Unknown Review of Systems - Review of Systems Constitutional: No symptoms reported EENT: No symptoms reported Cardiovascular: See HPI Respiratory: See HPI Gastrointestinal: No symptoms reported Genitourinary: No symptoms reported Musculoskeletal: No symptoms reported Skin: No symptoms reported Neurological/Psychological: See HPI Physical Exam - Vital signs Vitals: Temp Pulse BP Pulse Ox 98.0 F 82 132/82 H 99 11/26/18 11:19 11/26/18 11:19 11/26/18 11:19 11/26/18 11:19 - Notes Notes: Vital signs reviewed, please refer to chart. Head is normocephalic, atraumatic. Pupils equal round, reactive to light. Neck is supple without meningismus. Heart is regular rate and rhythm. Lungs reveal diminished breath sounds throughout with occasional expiratory wheeze. Abdomen is soft, nontender, normoactive bowel sounds throughout. Extremities without cyanosis, clubbing. Posterior calves are nontender. Peripheral pulses are equal. Skin is warm and dry. Patient is awake, alert. He is oriented to person and place, disoriented to time. He occasionally answers questions inappropriately. Moves all 4 extremities spontaneously. No gross facial asymmetry. Course - Re-evaluation Re-evalutation: 11/26/18 16:59 Patient presents to the emergency department for evaluation. He was initially brought in by EMS, placed on 4 L. He is on 2 L of oxygen at home per the patient. ABG was obtained after being on 2 L. He was found to be hypoxemic, hypercarbic. His pH was low normal. Laboratory investigations otherwise revealed leukocytosis as well as a urinary tract infection. I did review patient's past urine cultures, he has had E. coli, Proteus, and enterococcus in the past. He is given IV Rocephin. Given his hypercarbia, which was above what I expect his baseline is, I did go back and evaluate the patient again. He seemed to be having increased difficulty breathing. Decision was made at that time to place patient on BiPAP. I spoke with Dr. Kennedy, who asked that I speak with Dr. Shoemaker regarding the patient. Dr. Shoemaker will come to the ED and accept the patient for admission. - Vital Signs Vital signs: Temp Pulse Resp BP Pulse Ox 98.0 F 82 132/82 H 97 11/26/18 11:19 11/26/18 11:19 11/26/18 11:19 11/26/18 12:02 - Laboratory Result Diagrams: 11/26/18 12:10 11/26/18 12:10 Laboratory results interpreted by me: 11/26/18 11/26/18 11/26/18 12:10 12:10 13:58 WBC 14.1 H RBC 3.87 L Hgb 12.1 L Hct 37.7 L MCV 98 H RDW 14.2 H Plt Count 485 H Absolute Neutrophils 9.6 H Absolute Monocytes 1.5 H Carbonic Acid 1.86 H ABG pCO2 61.7 H ABG pO2 61.9 L ABG HCO3 33.3 H ABG Total CO2 35.2 H ABG O2 Saturation 90.0 L Potassium 3.2 L Carbon Dioxide 34 H BUN 22 H Creatine Kinase 25 L Total Protein 6.1 L Albumin 3.3 L Urine Protein Urine Blood Ur Leukocyte Esterase 11/26/18 15:25 WBC RBC Hgb Hct MCV RDW Plt Count Absolute Neutrophils Absolute Monocytes Carbonic Acid ABG pCO2 ABG pO2 ABG HCO3 ABG Total CO2 ABG O2 Saturation Potassium Carbon Dioxide BUN Creatine Kinase Total Protein Albumin Urine Protein 30 H Urine Blood SMALL H Ur Leukocyte Esterase LARGE H - Diagnostic Test Radiology reviewed: Reports reviewed Radiology results interpreted by me: 11/26/18 17:01 Chest X-Ray 11/26/18 11:14 IMPRESSION: HEART ENLARGED WITHOUT FAILURE. NO OTHER SIGNIFICANT RADIOGRAPHIC FINDING IN THE CHEST. - EKG Interpretation by Me Additional EKG results interpreted by me: 11/26/18 17:02 Sinus mechanism with a rate of 84 bpm. Normal axis and intervals. Nonspecific ST changes, but no acute changes concerning for acute infarction. No significant change when compared to prior study. Critical Care Note - Critical Care Note Total time excluding time spent on procedures (mins): 20 Discharge - Discharge Clinical Impression: Acute hypercapnic respiratory failure, UTI (urinary tract infection), Leukocytosis Condition: Stable Disposition: ADMITTED INPATIENT Admitting Provider: Navid (Hospitalist) Unit Admitted: [facility]
[2018-11-26] MEDS ORDERED: LEVALBUTEROL HCL NEB 0.63 MG/3 ML AMPUL NEB PRN (18:52)
[2018-11-26] MEDS ORDERED: ACETAMINOPHEN 325 MG TABLET PO PRN (18:52)
[2018-11-26] MEDS ORDERED: MAG HYDROX/AL HYDROX/SIMETH SUSP 30 ML UDCUP PO PRN (18:52)
[2018-11-26] MEDS ORDERED: MAGNESIUM HYDROXIDE SUSP 30 ML UDCUP PO PRN (18:52)
[2018-11-26] MEDS ORDERED: ALPRAZOLAM 0.5 MG TABLET PO PRN (18:59)
[2018-11-26] MEDS ORDERED: LORAZEPAM INJ 2 MG/1 ML VIAL IV PRN (19:01)
[2018-11-26] MEDS ORDERED: POTASSI CL 20 MEQ/50 ML RIDER 20 MEQ/50 ML RTUPB IV ONE (19:02)
--- NOTE | 2018-11-26 19:31 | PDOC H&P ---
History of Present Illness Admission Date/PCP: 11/26/18 17:23 Patient complains of: Increased shortness of breath with mild discomfort upon urination History of Present Illness: KAMERON TRUJILLO is a 58 year old male who was recently admitted to this hospital earlier this month. He has a past medical history of alcohol abuse and he continues to drink. 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 He reports that over the last 3 to 4 days he has been noticing increasing shortness of breath. When he presented to the emergency department he was tachypneic with a normal pH but elevated PCO2 and decreased PO2. Was also noted that his urinalysis had many white cells and positive leukocyte esterase. Because of his tachypnea and elevated PCO2 the patient was placed on BiPAP and referred to the hospitalist service for admission. Past Medical History Cardiac Medical History: Reports: Hypertension Denies: Atrial Fibrillation, Congestive Heart Failure Pulmonary Medical History: Reports: Chronic Obstructive Pulmonary Disease (COPD), Intubation, Respiratory Failure Endocrine Medical History: Denies: Diabetes Mellitus Type 1, Diabetes Mellitus Type 2 GI Medical History: Reports: Cirrhosis Musculoskeltal Medical History: Denies: Fibromyalgia Psychiatric Medical History: Reports: Alcohol Dependency, Depression Traumatic Medical History: Denies: Gunshot Wound Hematology: Denies: Sickle Cell Disease Infectious Medical History: Denies: Clostridium Difficile Past Surgical History Past Surgical History: Reports: Other - Unknown Social History Information Source: Patient, [facility] Records Lives with: Spouse/Significant other Smoking Status: Current Every Day Smoker - He actually denied tobacco to this tacho robles. He states he has not smoked for 4 years. All of his old records indicate otherwise. Frequency of Alcohol Use: Heavy Last Alcohol Use: 11/24/18 Hx Recreational Drug Use: No Drugs: None Hx Prescription Drug Abuse: No - Advance Directive Resuscitation Status: Full Code Surrogate healthcare decision maker:: No formal documents on file Family History Family History: Reviewed & Not Pertinent, Hypertension Parental Family History Reviewed: Yes Children Family History Reviewed: Yes Sibling(s) Family History Reviewed.: Yes Medication/Allergy Home Medications: Alprazolam [Xanax 0.5 mg Tablet] 0.5 mg PO Q8HP PRN 11/26/18 Bupropion HCl [Bupropion Xl] 150 mg PO QAM 11/26/18 Duloxetine HCl [Cymbalta] 60 mg PO Q12 11/26/18 Furosemide [Lasix 40 mg Tablet] 40 mg PO DAILY 11/26/18 Lisinopril 20 mg PO DAILY 11/26/18 Montelukast Sodium [Singulair 10 mg Tablet] 10 mg PO QPM 11/26/18 Potassium Chloride [Klor-Con 10 Meq Capsule ER] 10 meq PO DAILY 11/26/18 Tamsulosin HCl [Flomax 0.4 mg Cap.sr] 0.4 mg PO DAILY 11/26/18 Allergies/Adverse Reactions: No Known Allergies Allergy (Verified 10/21/17 13:20) Review of Systems All systems: reviewed and no additional remarkable complaints except as stated Respiratory: PRESENT: cough, dyspnea Genitourinary: PRESENT: dysuria Psychiatric: PRESENT: anxiety, depression Physical Exam Vital Signs: Temp Pulse Resp BP Pulse Ox 98.0 F 82 19 132/82 H 91 L 11/26/18 11:19 11/26/18 11:19 11/26/18 17:00 11/26/18 11:19 11/26/18 17:00 Intake & Output 11/25/18 11/26/18 11/27/18 06:59 06:59 06:59 Weight 99.79 kg General appearance: PRESENT: cooperative, mild distress - Currently on BiPAP, well-developed Head exam: PRESENT: atraumatic, normocephalic Eye exam: PRESENT: conjunctiva pink, EOMI. ABSENT: scleral icterus Ear exam: PRESENT: normal external ear exam Mouth exam: PRESENT: other - Currently with BiPAP mask in place Neck exam: ABSENT: carotid bruit, JVD Respiratory exam: PRESENT: symmetrical, tachypnea, wheezes - Faint expiratory wheeze sporadic. ABSENT: accessory muscle use, rales, rhonchi Cardiovascular exam: PRESENT: RRR, +S1, +S2. ABSENT: diastolic murmur, systolic murmur Vascular exam: PRESENT: normal capillary refill. ABSENT: pallor GI/Abdominal exam: PRESENT: normal bowel sounds, soft, other - Protuberant abdomen. ABSENT: distended, tenderness Rectal exam: PRESENT: deferred Gentrourinary exam: ABSENT: indwelling catheter Extremities exam: ABSENT: calf tenderness, pedal edema Musculoskeletal exam: PRESENT: normal inspection Neurological exam: PRESENT: alert, awake, oriented to person - With BiPAP mask in place patient was mostly limited to yes and no answers but appeared oriented, oriented to place, oriented to time, oriented to situation Psychiatric exam: PRESENT: flat affect. ABSENT: agitated, anxious Focused psych exam: ABSENT: delusional, restlessness Skin exam: PRESENT: other - Ecchymotic lesion right side of abdomen Results Laboratory Results: 11/26/18 12:10 11/26/18 12:10 11/26/18 11/26/18 11/26/18 12:10 12:10 13:58 WBC 14.1 H RBC 3.87 L Hgb 12.1 L Hct 37.7 L MCV 98 H MCH 31.3 MCHC 32.2 RDW 14.2 H Plt Count 485 H Seg Neutrophils % 68.0 Lymphocytes % 18.3 Monocytes % 10.3 Eosinophils % 2.7 Basophils % 0.7 Absolute Neutrophils 9.6 H Absolute Lymphocytes 2.6 Absolute Monocytes 1.5 H Absolute Eosinophils 0.4 Absolute Basophils 0.1 Carbonic Acid 1.86 H HCO3/H2CO3 Ratio 17:1 ABG pH 7.35 ABG pCO2 61.7 H ABG pO2 61.9 L ABG HCO3 33.3 H ABG O2 Saturation 90.0 L ABG Base Excess 5.9 FiO2 2L Sodium 143.9 Potassium 3.2 L Chloride 103 Carbon Dioxide 34 H Anion Gap 7 BUN 22 H Creatinine 0.90 Est GFR ( Amer) > 60 Est GFR (Non-Af Amer) > 60 Glucose 108 Calcium 9.2 Total Bilirubin 0.2 AST 21 ALT 57 Alkaline Phosphatase 81 Total Protein 6.1 L Albumin 3.3 L Urine Color Urine Appearance Urine pH Ur Specific [place] Urine Protein Urine Glucose (UA) Urine Ketones Urine Blood Urine Nitrite Ur Leukocyte Esterase Urine WBC (Auto) Urine RBC (Auto) 11/26/18 15:25 WBC RBC Hgb Hct MCV MCH MCHC RDW Plt Count Seg Neutrophils % Lymphocytes % Monocytes % Eosinophils % Basophils % Absolute Neutrophils Absolute Lymphocytes Absolute Monocytes Absolute Eosinophils Absolute Basophils Carbonic Acid HCO3/H2CO3 Ratio ABG pH ABG pCO2 ABG pO2 ABG HCO3 ABG O2 Saturation ABG Base Excess FiO2 Sodium Potassium Chloride Carbon Dioxide Anion Gap BUN Creatinine Est GFR ( Amer) Est GFR (Non-Af Amer) Glucose Calcium Total Bilirubin AST ALT Alkaline Phosphatase Total Protein Albumin Urine Color ELEAZAR Urine Appearance TURBID Urine pH 5.0 Ur Specific [place] 1.023 Urine Protein 30 H Urine Glucose (UA) NEGATIVE Urine Ketones NEGATIVE Urine Blood SMALL H Urine Nitrite NEGATIVE Ur Leukocyte Esterase LARGE H Urine WBC (Auto) >182 Urine RBC (Auto) 14 11/26/18 11/26/18 11/26/18 12:10 12:10 12:10 Creatine Kinase 25 L CK-MB (CK-2) 0.43 Troponin I < 0.012 NT-Pro-B Natriuret Pep 173 Impressions: Chest X-Ray 11/26/18 11:14 IMPRESSION: HEART ENLARGED WITHOUT FAILURE. NO OTHER SIGNIFICANT RADIOGRAPHIC FINDING IN THE CHEST. Assessment and Plan - Diagnosis (1) Acute hypercapnic respiratory failure Is this a current diagnosis for this admission?: Yes Plan: The patient currently requires BiPAP with oxygen supplementation. With his history of COPD we will try and keep his oxygen saturation between 90 and 94%. We will try and wean him from the BiPAP and wean his oxygen as tolerated. He will be on DuoNeb's and budesonide nebulizer treatments. There does not appear to be any evidence of pneumonia or congestive failure contributing to his acute respiratory failure. This is related to his underlying COPD. (2) Leukocytosis Qualifiers: Leukocytosis type: unspecified Qualified Code(s): D72.829 - Elevated white blood cell count, unspecified Is this a current diagnosis for this admission?: Yes Plan: Most likely related to an acute cystitis however his acute respiratory failure can also contribute to physiologic stress with elevated white blood cell count. Continue to monitor CBC. (3) UTI (urinary tract infection) Qualifiers: Urinary tract infection type: acute cystitis Hematuria presence: without hematuria Qualified Code(s): N30.00 - Acute cystitis without hematuria Is this a current diagnosis for this admission?: Yes Plan: The patient will be on ceftriaxone daily. It is difficult to know the exact etiology but a urine culture has been requested. This could also be related to a prostatitis. Follow-up urine culture and await identification and sensitiviti es. Once available the scope of antibiotics can be adjusted. (4) Alcohol abuse Is this a current diagnosis for this admission?: Yes Plan: Patient has a history of alcohol abuse and cirrhosis. His transaminases are normal at this time. We will continue to monitor. He did not have anything to drink today but reports alcohol intake yesterday. There is no evidence of anxiety or withdrawal at this time but he will have both oral and IV benzodiazepine therapy available. If it appears that he is beginning to have withdrawal we will change the benzodiazepines to scheduled dosing. (5) Depression Qualifiers: Depression Type: unspecified Qualified Code(s): F32.9 - Major depressive disorder, single episode, unspecified Is this a current diagnosis for this admission?: Yes Plan: The patient is listed as being on Cymbalta and Wellbutrin. I did review a psychiatry consult from November 222018. Psychiatry did get in touch with the patient's primary psychiatrist and the recommendation was to decrease the Wellbutrin to 75 mg daily for 7 days and then discontinue. He was also to be started on Depakote 250 mg twice daily. I have decreased his Wellbutrin dose and initiated Depakote therapy as suggested. (6) HTN (hypertension) Qualifiers: Hypertension type: essential hypertension Qualified Code(s): I10 - Essential (primary) hypertension Is this a current diagnosis for this admission?: Yes Plan: Continue lisinopril and Lasix. We may need to adjust medications. Will follow vital signs and chemistries and adjust medications as indicated. (7) Hypokalemia Is this a current diagnosis for this admission?: Yes Plan: The patient is on furosemide daily. This certainly could contribute to his hypokalemia. He will receive a dose of IV potassium chloride and will resume his oral potassium chloride dosing tomorrow. Continue to monitor electrolytes. - Time Time Spent with patient: 35 or more minutes Smoking Cessation Education: 3 to 10 minutes Medications reviewed and adjusted accordingly: Yes Anticipated discharge: Home - Inpatient Certification Based on my medical assessment, after consideration of the patient's comorbidities, presenting symptoms, or acuity I expect that the services needed warrant INPATIENT care.: Yes I certify that my determination is in accordance with my understanding of Medicare's requirements for reasonable and necessary INPATIENT services [42 CFR 412.3e].: Yes Medical Necessity: Need for Nebulizer Therapy and Monitoring of Response, Need for IV Antibiotics Post Hospital Care: D/C Manager Insurance Documentation
[2018-11-26] MEDS: BUDESONIDE NEB 0.5 MG/2 ML AMPUL NEB SCH (20:50)
[2018-11-26] MEDS: IPRATROPIUM/ALBUTEROL 0.5-2.5 MG/3 ML AMPUL NEB SCH (20:50)
--- NOTE | 2018-11-26 22:13 | EKG REPORT ---
SEVERITY:- ABNORMAL ECG - SINUS RHYTHM NONSPECIFIC T ABNORMALITIES, LATERAL LEADS : Confirmed by: Carlota Joseph MD 26-Nov-2018 22:12:26
[2018-11-26] MEDS: FAMOTIDINE 20 MG TABLET PO SCH (22:46)
[2018-11-26] MEDS: HEPARIN SOD (PORCINE) 5,000 UNIT/ML 1 ML SYRINGE SUBCUT SCH (22:46)
[2018-11-26] MEDS: DULOXETINE HCL 30 MG CAPSULE.DR PO SCH (22:47)
[2018-11-27] MEDS: IPRATROPIUM/ALBUTEROL 0.5-2.5 MG/3 ML AMPUL NEB SCH ×4 (02:53→19:27)
[2018-11-27 05:21] LABS: ABSOLUTE BASOPHILS # (AUTO) 0.1 10^3/uL (0.0-0.2); ABSOLUTE EOSINOPHILS # (AUTO) 0.4 10^3/uL (0.0-0.6); ABSOLUTE MONOCYTES (AUTO) 1.2 10^3/uL (0.1-1.4); ABSOLUTE NEUT (AUTO) 11.1 10^3/uL (1.7-8.2); BASOPHILS % (AUTO) 0.5 % (0-2); EOSINOPHILS % (AUTO) 2.7 % (0-6); HEMATOCRIT 36.4 % (37.9-51.0); HEMOGLOBIN 11.8 g/dL (13.5-17.0); LYMPHOCYTES % (AUTO) 13.5 % (13-45); MEAN CORPUSCULAR HEMOGLOBIN 31.8 pg (27.0-33.4); MEAN CORPUSCULAR HGB CONC 32.5 g/dL (32.0-36.0); MEAN CORPUSCULAR VOLUME 98 fl (80-97); MONOCYTES % (AUTO) 8.3 % (3-13); PLATELET COUNT 437 10^3/uL (150-450); RED BLOOD COUNT 3.73 10^6/uL (4.35-5.55); RED CELL DISTRIBUTION WIDTH 14.1 % (11.5-14.0); TOTAL CELLS COUNTED % (AUTO) 100 %; WHITE BLOOD COUNT 14.8 10^3/uL (4.0-10.5)
[2018-11-27 05:31] LABS: ANION GAP 9 (5-19); BLOOD UREA NITROGEN 18 mg/dL (7-20); CALCIUM 8.3 mg/dL (8.4-10.2); CARBON DIOXIDE 34 mmol/L (22-30); CHLORIDE 104 mmol/L (98-107); GLUCOSE 108 mg/dL (75-110); SODIUM 146.9 mmol/L (137-145)
[2018-11-27] MEDS: HEPARIN SOD (PORCINE) 5,000 UNIT/ML 1 ML SYRINGE SUBCUT SCH ×3 (06:40→21:36)
[2018-11-27 07:18] LABS: POTASSIUM 4.4 mmol/L (3.6-5.0)
[2018-11-27 07:34] LABS: ARTERIAL BLOOD BASE EXCESS 7.4 mmol/L; ARTERIAL BLOOD HCO3 34.9 mmol/L (20-24); ARTERIAL BLOOD PCO2 63.2 mmHg (35-45); ARTERIAL BLOOD PH 7.36 (7.35-7.45); ARTERIAL BLOOD PO2 70.4 mmHg (80-100); ARTERIAL BLOOD TOTAL CO2 36.8 mmol/L (23-27)
[2018-11-27 07:35] LABS: ARTERIAL BLOOD FIO2 4L
[2018-11-27] MEDS ORDERED: (PENDING PHARMACY ID) (Bupropion Hcl [Bupropion Xl] 150 MG) PO SCH (08:00)
[2018-11-27] MEDS: BUDESONIDE NEB 0.5 MG/2 ML AMPUL NEB SCH ×2 (08:04→19:27)
[2018-11-27] MEDS: BUPROPION HCL 75 MG TABLET PO SCH (09:16)
[2018-11-27] MEDS: POTASSIUM CHLORIDE 10 MEQ CAPSULE.ER PO SCH (09:16)
[2018-11-27] MEDS: DULOXETINE HCL 30 MG CAPSULE.DR PO SCH ×2 (09:16→21:37)
[2018-11-27] MEDS: CEFTRIAXONE SODIUM 1,000 MG in DEXTROSE 5%-WATER 50 ML IV SCH (09:16)
[2018-11-27] MEDS: TAMSULOSIN HCL 0.4 MG CAP.SR.24H PO SCH (09:18)
[2018-11-27] MEDS: FAMOTIDINE 20 MG TABLET PO SCH ×2 (09:18→21:40)
[2018-11-27] MEDS: FUROSEMIDE 40 MG TABLET PO SCH (09:18)
[2018-11-27] MEDS: LISINOPRIL 10 MG TABLET PO SCH (09:18)
[2018-11-27] MEDS: DIVALPROEX SODIUM 250 MG TAB.SR.24H PO SCH ×2 (09:24→21:37)
[2018-11-27] MEDS ORDERED: (PENDING PHARMACY ID) (Lisinopril [Lisinopril] 20 MG) PO SCH (10:00)
[2018-11-27] MEDS ORDERED: FUROSEMIDE 40 MG TABLET PO SCH (10:00)
[2018-11-27] MEDS ORDERED: CEFTRIAXONE 1 GM/D5W RTU 1 GM/50 ML RTUPB IV SCH (10:00)
--- NOTE | 2018-11-27 17:00 | PDOC PROGRESS REPORT ---
Subjective Progress Note for:: 11/27/18 Subjective:: No adverse events overnight. No new complaints. Vital signs are stable. He said he is on 2 L of oxygen at home we got him on 2 to 3 L here and he seems to be doing fine. He says he feels pretty good. Reason For Visit: ACUTE ON CHRONIC HYPOXIC HYPERCAPNIC RESPIRATORY Physical Exam Vital Signs: Temp Pulse Resp BP Pulse Ox 98.7 F 89 18 112/57 L 96 11/27/18 12:06 11/27/18 14:00 11/27/18 13:32 11/27/18 12:06 11/27/18 13:32 Intake & Output 11/26/18 11/27/18 11/28/18 06:59 06:59 06:59 Intake Total 1600 480 Balance 1600 480 Weight 107.4 kg General appearance: PRESENT: no acute distress, cooperative, disheveled, morbidly obese Teeth exam: PRESENT: poor dentation Respiratory exam: PRESENT: decreased breath sounds, symmetrical, unlabored, other - Breath sounds were generally coarse. ABSENT: accessory muscle use, chest wall tenderness, crackles, prolonged expiratory phas, rhonchi, tachypnea, wheezes Cardiovascular exam: PRESENT: RRR, +S1, +S2 Pulses: PRESENT: normal carotid pulses Vascular exam: PRESENT: normal capillary refill GI/Abdominal exam: PRESENT: normal bowel sounds, soft, other - He had bruises on the left lateral inferior aspect of his abdomen. ABSENT: distended, guarding, rebound, tenderness Extremities exam: ABSENT: clubbing, pedal edema Musculoskeletal exam: PRESENT: normal inspection. ABSENT: deformity Neurological exam: PRESENT: alert, awake, oriented to person, oriented to place, oriented to situation Psychiatric exam: PRESENT: appropriate affect, normal mood Skin exam: PRESENT: dry, warm Results Laboratory Results: 11/27/18 04:49 11/27/18 04:49 11/27/18 11/27/18 11/27/18 04:49 04:49 06:20 WBC 14.8 H RBC 3.73 L Hgb 11.8 L Hct 36.4 L MCV 98 H MCH 31.8 MCHC 32.5 RDW 14.1 H Plt Count 437 Seg Neutrophils % 75.0 Lymphocytes % 13.5 Monocytes % 8.3 Eosinophils % 2.7 Basophils % 0.5 Absolute Neutrophils 11.1 H Absolute Lymphocytes 2.0 Absolute Monocytes 1.2 Absolute Eosinophils 0.4 Absolute Basophils 0.1 Carbonic Acid 1.90 H HCO3/H2CO3 Ratio 18:1 ABG pH 7.36 ABG pCO2 63.2 H ABG pO2 70.4 L ABG HCO3 34.9 H ABG O2 Saturation 93.0 L ABG Base Excess 7.4 FiO2 4L Sodium 146.9 H Potassium 4.4 D Chloride 104 Carbon Dioxide 34 H Anion Gap 9 BUN 18 Creatinine 0.80 Est GFR ( Amer) > 60 Est GFR (Non-Af Amer) > 60 Glucose 108 Calcium 8.3 L Magnesium 2.3 11/26/18 11/26/18 11/26/18 12:10 12:10 12:10 Creatine Kinase 25 L CK-MB (CK-2) 0.43 Troponin I < 0.012 NT-Pro-B Natriuret Pep 173 Impressions: Chest X-Ray 11/26/18 11:14 IMPRESSION: HEART ENLARGED WITHOUT FAILURE. NO OTHER SIGNIFICANT RADIOGRAPHIC FINDING IN THE CHEST. Assessment and Plan - Diagnosis (1) COPD exacerbation Is this a current diagnosis for this admission?: Yes Plan: Responding well to the current treatment with nebulizers, steroids, and antibiotics. If he is doing well tomorrow we might be able to discharge him home. (2) Chronic respiratory failure Qualifiers: Respiratory failure complication: hypoxia and hypercapnia Qualified Code(s): J96.11 - Chronic respiratory failure with hypoxia; J96.12 - Chronic respiratory failure with hypercapnia; J96.12 - Chronic respiratory failure with hypercapnia; J96.12 - Chronic respiratory failure with hypercapnia Is this a current diagnosis for this admission?: Yes Plan: Off BiPAP, currently stable on his usual level of home oxygen support (3) Hypokalemia Is this a current diagnosis for this admission?: Yes Plan: Resolved (4) UTI (urinary tract infection) Qualifiers: Urinary tract infection type: acute cystitis Hematuria presence: without hematuria Qualified Code(s): N30.00 - Acute cystitis without hematuria Is this a current diagnosis for this admission?: Yes Plan: Growing a gram-negative in his urine. Cultures pending identification and susceptibility. Continue current antibiotics. (5) Alcohol abuse Is this a current diagnosis for this admission?: Yes Plan: Says he has not had anything to drink in a while. Will monitor for signs of withdrawal. (6) Obesity (BMI 30-39.9) Is this a current diagnosis for this admission?: Yes Plan: Encouraged lifestyle modification - Time Time Spent with patient: 15-24 minutes
[2018-11-27] MEDS ORDERED: MONTELUKAST SODIUM 10 MG TABLET PO SCH (18:00)
[2018-11-28] MEDS: IPRATROPIUM/ALBUTEROL 0.5-2.5 MG/3 ML AMPUL NEB SCH ×3 (02:26→13:59)
[2018-11-28] MEDS: HEPARIN SOD (PORCINE) 5,000 UNIT/ML 1 ML SYRINGE SUBCUT SCH (06:02)
[2018-11-28] MEDS: BUDESONIDE NEB 0.5 MG/2 ML AMPUL NEB SCH (08:00)
[2018-11-28] MEDS: FAMOTIDINE 20 MG TABLET PO SCH (10:07)
[2018-11-28] MEDS: DULOXETINE HCL 30 MG CAPSULE.DR PO SCH (10:07)
[2018-11-28] MEDS: POTASSIUM CHLORIDE 10 MEQ CAPSULE.ER PO SCH (10:07)
[2018-11-28] MEDS: TAMSULOSIN HCL 0.4 MG CAP.SR.24H PO SCH (10:07)
[2018-11-28] MEDS: BUPROPION HCL 75 MG TABLET PO SCH (10:07)
[2018-11-28] MEDS: LISINOPRIL 10 MG TABLET PO SCH (10:07)
[2018-11-28] MEDS: CEFTRIAXONE SODIUM 1,000 MG in DEXTROSE 5%-WATER 50 ML IV SCH (10:08)
[2018-11-28] MEDS: FUROSEMIDE 40 MG TABLET PO SCH (10:08)
[2018-11-28] MEDS: DIVALPROEX SODIUM 250 MG TAB.SR.24H PO SCH (10:18)
[2018-11-28 11:47] VITALS: BP 141/76
--- NOTE | 2018-11-28 18:04 | PDOC DISCHARGE SUMMARY ---
General - Admit/Disc Date/PCP Admission Date/Primary Care Provider: 11/26/18 17:23 Discharge Date: 11/28/18 - Discharge Diagnosis (1) COPD exacerbation Is this a current diagnosis for this admission?: Yes Summary: Improved rapidly with IV steroids. He was pushing to go home from his recent hospitalization for respiratory failure, and he did not get his prednisone filled that he was given when he was discharged. (2) Chronic respiratory failure Is this a current diagnosis for this admission?: Yes Summary: Stable on his usual level of oxygen support (3) Hypokalemia Is this a current diagnosis for this admission?: Yes Summary: Resolved with supplementation (4) UTI (urinary tract infection) Is this a current diagnosis for this admission?: Yes Summary: Grew out an E. coli sensitive to cephalosporins. Will finish up with Keflex at home. (5) Alcohol abuse Is this a current diagnosis for this admission?: Yes Summary: Strongly encourage cessation (6) Obesity (BMI 30-39.9) Is this a current diagnosis for this admission?: Yes Summary: Strongly encouraged lifestyle modification - Additional Information Resuscitation Status: Full Code Discharge Diet: Cardiac Discharge Activity: Activity As Tolerated Prescriptions: Cephalexin Monohydrate [Keflex 500 mg Capsule] 500 mg PO QID #20 capsule Home Medications: Alprazolam [Xanax 0.5 mg Tablet] 0.5 mg PO Q8HP PRN 11/26/18 Bupropion HCl [Bupropion Xl] 150 mg PO QAM 11/26/18 Duloxetine HCl [Cymbalta] 60 mg PO Q12 11/26/18 Furosemide [Lasix 40 mg Tablet] 40 mg PO DAILY 11/26/18 Lisinopril 20 mg PO DAILY 11/26/18 Montelukast Sodium [Singulair 10 mg Tablet] 10 mg PO QPM 11/26/18 Potassium Chloride [Klor-Con 10 Meq Capsule ER] 10 meq PO DAILY 11/26/18 Tamsulosin HCl [Flomax 0.4 mg Cap.sr] 0.4 mg PO DAILY 11/26/18 Cephalexin Monohydrate [Keflex 500 mg Capsule] 500 mg PO QID #20 capsule 11/28/18 History of Present Illness History of Present Illness: KAMERON TRUJILLO is a 58 year old male who was recently admitted to this hospital earlier this month. He has a past medical history of alcohol abuse and he continues to drink. 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 He reports that over the last 3 to 4 days he has been noticing increasing shortness of breath. When he presented to the emergency department he was tachypneic with a normal pH but elevated PCO2 and decreased PO2. Was also noted that his urinalysis had many white cells and positive leukocyte esterase. Because of his tachypnea and elevated PCO2 the patient was placed on BiPAP and referred to the hospitalist service for admission. Hospital Course Hospital Course: He responded well to steroids. He apparently had been pushing pretty hard to be discharged from his previous hospitalization a few days before he was readmitted. At that time he had actually been intubated. When he was discharg ed she was given a prescription for a steroid taper, which he did not fill. He was strongly encouraged to get that filled this time. He was also noted to have urinary tract infection was determined to be an E. coli that was sensitive to cephalosporins. He was given a prescription for Keflex. He was also encouraged to get filled all the other medications that were given to him during his previo hospitalization. His labs and examination were reassuring he was discharged in good condition. Physical Exam Vital Signs: Temp Pulse Resp BP Pulse Ox 98.5 F 80 16 141/76 H 92 11/28/18 11:42 11/28/18 11:42 11/28/18 11:42 11/28/18 11:42 11/28/18 11:42 Intake & Output 11/27/18 11/28/18 11/29/18 06:59 06:59 06:59 Intake Total 1600 752 Output Total 500 Balance 1600 252 Weight 107.4 kg 104.8 kg General appearance: PRESENT: no acute distress, cooperative, disheveled, morbidly obese Teeth exam: PRESENT: poor dentation Respiratory exam: PRESENT: decreased breath sounds, symmetrical, unlabored, other - Breath sounds were generally coarse. ABSENT: accessory muscle use, chest wall tenderness, crackles, prolonged expiratory phas, rhonchi, tachypnea, wheezes Cardiovascular exam: PRESENT: RRR, +S1, +S2 Pulses: PRESENT: normal carotid pulses Vascular exam: PRESENT: normal capillary refill GI/Abdominal exam: PRESENT: normal bowel sounds, soft, other - He had bruises on the left lateral inferior aspect of his abdomen. ABSENT: distended, guarding, rebound, tenderness Extremities exam: ABSENT: clubbing, pedal edema Musculoskeletal exam: PRESENT: normal inspection. ABSENT: deformity Neurological exam: PRESENT: alert, awake, oriented to person, oriented to place, oriented to situation Psychiatric exam: PRESENT: appropriate affect, normal mood Skin exam: PRESENT: dry, warm Results Laboratory Results: 11/27/18 04:49 11/27/18 04:49 11/26/18 15:25 Clean Catch Midstream Urine Culture - Final Escherichia Coli 11/26/18 11/26/18 11/26/18 12:10 12:10 12:10 Creatine Kinase 25 L CK-MB (CK-2) 0.43 Troponin I < 0.012 NT-Pro-B Natriuret Pep 173 Impressions: Chest X-Ray 11/26/18 11:14 IMPRESSION: HEART ENLARGED WITHOUT FAILURE. NO OTHER SIGNIFICANT RADIOGRAPHIC FINDING IN THE CHEST. Qualifiers - * PATIENT BEING DISCHARGED WITH ANY OF THE FOLLOWING DIAGNOSIS: No Acute Heart Failure Is this a Heart Failure Patient?: No Plan Time Spent: Greater than 30 Minutes
== END 2018-11-28 13:00 | disposition home or self-care (01) | DRG 189 ==
LOC: ER 11:09 → EH 17:23 → 3W 19:40
PROVIDERS: ADMIT Hospitalist; ATTEND Hospitalist
DX: J96.22 Acute and chronic respiratory failure with hypercapnia (principal); J44.1 Chronic obstructive pulmonary disease with (acute) exacerbation; N39.0 Urinary tract infection, site not specified; B96.20 Unspecified Escherichia coli [E. coli] as the cause of diseases classified elsewhere; E87.6 Hypokalemia; K70.30 Alcoholic cirrhosis of liver without ascites; I10 Essential (primary) hypertension; F32.9 Major depressive disorder, single episode, unspecified; F10.20 Alcohol dependence, uncomplicated; F17.210 Nicotine dependence, cigarettes, uncomplicated; Y90.9 Presence of alcohol in blood, level not specified; Z99.81 Dependence on supplemental oxygen
CPT/HCPCS: 36415; 36600; 71045; 80048; 80053; 81001; 82550; 82553; 82803; 83735; 83880; 84484; 85025; 87086; 87088; 87186; 93005; 93010; 94660; 96365; 99285; J0696; J1644; J3480; J3490; J7060; J7620

== ENCOUNTER 2019-01-12 07:56 | Inpatient (IN) | payer BC ==
--- NOTE | 2019-01-12 08:19 | ER Document Report ---
HPI - HPI Patient complains to provider of: sob Time Seen by Provider: 01/12/19 08:18 Onset/Duration: Gradual, Persistent Severity: Moderate Pain Level: Denies Context: This is a 58-year-old male with a history of atrial fibrillation who is currently rate controlled on metoprolol, COPD on 5 L home oxygen, tobacco abuse, sleep apnea on CPAP, CHF on Lasix 40mg qd, here for worsening shortness of breath, productive cough, and fever over the last couple days. He was admitted here 11/11- and intubated and on bipap for acute respiratory failure. He is a full code per at bedside. He was brought in by EMS and found at 84% on room air and given 2 duonebs and 125mg IV Solu-Medrol in route. he still complains of some shortness of breath, has increased work of breathing, and some intermittent substernal chest tightness, denies cp currently. He also states he has had some increased swelling in his legs and weight gain; however, is not able to give me an exact number. He does not weigh himself daily. The states he is not compliant with O2 or CPAP at home. No recent antibiotics or steroids. He is not a diabetic. No other changes in medication or diet. He also has a history of alcohol abuse and liver cirrhosis. no blood thinners. No other complaints at this time. pcp is [facility]. Associated Symptoms: Chest pain, Productive cough, Shortness of breath Exacerbated by: Supine Relieved by: Sitting, Remaining still Similar symptoms previously: Yes Recently seen / treated by doctor: Yes Past Medical History - General Information source: Patient, Relative - - Social History Smoking Status: Current Every Day Smoker Frequency of alcohol use: Heavy Drug Abuse: None Lives with: Family Family History: Hypertension Patient has suicidal ideation: No Patient has homicidal ideation: No - Past Medical History Cardiac Medical History: Reports: Hx Atrial Fibrillation, Hx Congestive Heart Failure, Hx Hypertension Pulmonary Medical History: Reports: Hx COPD - on 5L home O2, Hx Intubation - 11/11/18, Hx Respiratory Failure, Hx Sleep Apnea - noncompliant with CPAP Endocrine Medical History: Denies: Hx Diabetes Mellitus Type 1, Hx Diabetes Mellitus Type 2 Renal/ Medical History: Reports: Hx End Stage Renal Disease. 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 Musculoskeletal Medical History: Denies Hx Fibromyalgia Psychiatric Medical History: Reports: Hx Depression - Immunizations Hx Pneumococcal Vaccination: 07/01/17 Vertical Provider Document - CONSTITUTIONAL General Appearance: Mild Distress Notes: >>>> PHYSICAL_EXAM: GENERAL_APPEARANCE: well_nourished, alert, cooperative, mild_acute_distress, mild_obvious_discomfort. pleasant, obese middle-aged white male, sitting up with slight increased work of breathing on 5 L oxygen via facemask with DuoNeb going, he does speak in shortened sentences, slightly tachypneic and diaphoretic, otherwise nontoxic, in no sign of pain, at bedside VITALS: reviewed, see vital signs table. HEAD: no_swelling\tenderness on the head. normocephalic. atraumatic. no adams signs. no raccoons eyes. EARS: canals_clear_bilat, TMs_clear. EYES: PERRL, EOMI, conjunctiva_clear. NOSE: no_nasal_discharge. MOUTH: (-)decreased moisture. THROAT: no_tonsilar_inflammation/hypertrophy/exudate, no_airway_obstruction. no_lymphadenopathy. No drooling, tripoding, voice change, stridor NECK: supple, no_neck_tenderness, full rom. full strength. no jvd. no me ningeal signs. no sign of central cord syndrome. BACK: no_back_tenderness. CHEST_WALL: no_chest_tenderness. no overlying skin changes LUNGS: Positive mild diffuse expiratory wheezes, (mild)accessory muscle use, tachypnea, good air exchange bilateral. HEART: normal_rate, normal_rhythm, no_murmur, ABDOMEN: normal_BS, soft, no_abd_tenderness, (-)guarding, (-)rebound, obese abd, no distension or peritoneal signs. no cva ttp EXTREMITIES: strength 5/5 in all_extremities, good pulses in all_extremities, no_swelling\tenderness in the extremities unless otherwise noted, 1-2+ edema bilat. full rom. normal gait. good pulses. brisk cap refill. good hand co pilot. neg rae sign NEURO: motor and sensation intact, cranial nerves 2-12 intact, cerebellar fxn intact SKIN: warm, dry, good_color, no_rash. MENTAL_STATUS: speech_clear, oriented_X_3, normal_affect, responds_appropriately to questions. - INFECTION CONTROL TRAVEL OUTSIDE OF THE [place] IN LAST 30 DAYS: No Course - Re-evaluation Re-evalutation: 01/12/19 10:09 Patient here for shortness of breath, cough, and increased work of breathing over the last few days. He does have a past medical history significant for COPD on home oxygen along with CHF, and sleep apnea on CPAP. He is not compliant with his CPAP or oxygen. He does continue to smoke. He was intubated for 2 weeks in October of this year. states he is a full code. Labs are as noted as above. He was placed on 5 L of oxygen here initially via face mask; however, after another DuoNeb he was still having increased work of breathing. He was started on BiPAP and did not show much improvement so the decision was made to intubate. Dr. Rosales did intubate the patient. Please refer to his note for details of this procedure. EKG unremarkable per Dr. Rosales. His chest x-ray did show cardiomegaly but was otherwise negative for anything acute per radiolog y and reviewed by myself. Patient referred to hospitalist for admission for acute respiratory failure. case discussed with ER Attending, Dr. Rosales, who also saw and evaluated this pt. Documentation achieved through voice recording which my lead to some occasional accidental typographical errors. Extensive efforts have been made to proof read documentation to make sure these are the least as possible. 01/12/19 10:12 - Vital Signs Vital signs: 01/12/19 10:09 Temp Pulse Resp BP Pulse Ox 97.8 F 32 H 143/87 H 96 01/12/19 08:22 01/12/19 09:15 01/12/19 09:15 01/12/19 09:15 - Laboratory Result Diagrams: 01/12/19 08:28 01/12/19 08:28 Laboratory results interpreted by me: 01/12/19 10:09 Labs- All tests 24 hr 01/12/19 01/12/19 01/12/19 08:28 08:28 08:28 WBC 9.6 RBC 4.09 L Hgb 13.1 L Hct 40.6 MCV 99 H MCH 31.9 MCHC 32.2 RDW 14.6 H Plt Count 242 Seg Neutrophils % 64.9 Lymphocytes % 23.0 Monocytes % 10.3 Eosinophils % 0.9 Basophils % 0.9 Absolute Neutrophils 6.2 Absolute Lymphocytes 2.2 Absolute Monocytes 1.0 Absolute Eosinophils 0.1 Absolute Basophils 0.1 PT 12.4 INR 0.93 VBG pH VBG pCO2 VBG HCO3 VBG Base Excess Sodium 141.1 Potassium 4.6 Chloride 101 Carbon Dioxide 38 H Anion Gap 2 L BUN 9 Creatinine 0.82 Est GFR ( Amer) > 60 Est GFR (Non-Af Amer) > 60 Glucose 129 H Lactic Acid Calcium 8.8 Magnesium Total Bilirubin 0.3 Direct Bilirubin 0.2 Neonat Total Bilirubin Not Reportable Neonat Direct Bilirubin Not Reportable Neonat Indirect Bili Not Reportable AST 27 ALT 37 Alkaline Phosphatase 79 Creatine Kinase 34 L CK-MB (CK-2) Troponin I NT-Pro-B Natriuret Pep Total Protein 6.3 Albumin 3.5 Serum Alcohol 01/12/19 01/12/19 01/12/19 08:28 08:28 08:28 WBC RBC Hgb Hct MCV MCH MCHC RDW Plt Count Seg Neutrophils % Lymphocytes % Monocytes % Eosinophils % Basophils % Absolute Neutrophils Absolute Lymphocytes Absolute Monocytes Absolute Eosinophils Absolute Basophils PT INR VBG pH VBG pCO2 VBG HCO3 VBG Base Excess Sodium Potassium Chloride Carbon Dioxide Anion Gap BUN Creatinine Est GFR ( Amer) Est GFR (Non-Af Amer) Glucose Lactic Acid Calcium Magnesium 2.2 Total Bilirubin Direct Bilirubin Neonat Total Bilirubin Neonat Direct Bilirubin Neonat Indirect Bili AST ALT Alkaline Phosphatase Creatine Kinase CK-MB (CK-2) 1.46 Troponin I < 0.012 NT-Pro-B Natriuret Pep 728 Total Protein Albumin Serum Alcohol < 10 01/12/19 01/12/19 08:52 08:52 WBC RBC Hgb Hct MCV MCH MCHC RDW Plt Count Seg Neutrophils % Lymphocytes % Monocytes % Eosinophils % Basophils % Absolute Neutrophils Absolute Lymphocytes Absolute Monocytes Absolute Eosinophils Absolute Basophils PT INR VBG pH 7.13 L* VBG pCO2 128.1 H* VBG HCO3 41.2 H VBG Base Excess 7.3 Sodium Potassium Chloride Carbon Dioxide Anion Gap BUN Creatinine Est GFR ( Amer) Est GFR (Non-Af Amer) Glucose Lactic Acid 0.9 Calcium Magnesium Total Bilirubin Direct Bilirubin Neonat Total Bilirubin Neonat Direct Bilirubin Neonat Indirect Bili AST ALT Alkaline Phosphatase Creatine Kinase CK-MB (CK-2) Troponin I NT-Pro-B Natriuret Pep Total Protein Albumin Serum Alcohol - Diagnostic Test Radiology reviewed: Image reviewed, Reports reviewed Radiology results interpreted by me: 01/12/19 10:09 Chest X-Ray 01/12/19 08:20 IMPRESSION: HEART ENLARGED WITHOUT FAILURE. NO OTHER SIGNIFICANT RADIOGRAPHIC FINDING IN THE CHEST. Category Date Time Status Continuous Cardiac Monitoring (ED) CONTINUOUS Care 01/12/19 08:20 Completed EKG Documentation STAT Care 01/12/19 08:05 Completed Oxygen (ED) Nasal Cannula 2 lpm Care 01/12/19 08:20 Active Pulse Oximeter Continuous (ED) CONTINUOUS Care 01/12/19 08:20 Completed Saline Lock (ED) NOW Care 01/12/19 08:20 Active CHEST SINGLE VIEW [RAD] Stat Exams 01/12/19 08:20 Completed ADD ON [ADD ON TESTING BLD IN LAB] [CHEM] Stat Lab 01/12/19 08:28 Completed ADD ON [ADD ON TESTING BLD IN LAB] [CHEM] Stat Lab 01/12/19 08:28 Completed BLOOD CULTURE [MC] Stat Lab 01/12/19 09:40 Received BNP (In-House) [NT PRO BNP] [CHEM] Stat Lab 01/12/19 08:28 Completed CBC WITH DIFF [HEME] Stat Lab 01/12/19 08:28 Completed COMPREHENSIVE METABOLIC PANEL [CHEM] Stat Lab 01/12/19 08:28 Completed CREATINE KINASE MB [CHEM] Stat Lab 01/12/19 08:28 Completed CREATINE KINASE [CHEM] Stat Lab 01/12/19 08:28 Completed ETOH [ALCOHOL] [CHEM] Stat Lab 01/12/19 08:28 Completed LACTIC ACID SEPSIS [CHEM] Stat Lab 01/12/19 08:52 Completed MAGNESIUM [CHEM] Stat Lab 01/12/19 08:28 Completed PROTHROMBIN TIME/INR [COAG] Stat Lab 01/12/19 08:28 Completed TROPONIN I [CHEM] Stat Lab 01/12/19 08:28 Completed URINALYSIS [URIN] Stat Lab 01/12/19 08:57 Uncollected URINE CULTURE [MC] Stat Lab 01/12/19 08:57 Uncollected VENOUS BLOOD GAS (PERIPHERAL) [CHEM] Stat Lab 01/12/19 08:52 Completed Ipratropium/Albuterol Sulfate [Duoneb 3 ml Ampul] Med 01/12/19 08:39 Discontinued 3 ml NEB NOW ONE EKG ER ONLY [ER] Stat Oth 01/12/19 Active BIPAP [RESPCARE] PROTOCOL Ther 01/12/19 09:15 Active Nebulizer Therapy Routine [RESPCARE] NOW Ther 01/12/19 08:39 Active - EKG Interpretation by Me EKG shows normal: Sinus rhythm Rate: Normal Rhythm: NSR - 91 bpm, no stemi, no old avail for comparison. reviewed by dr rosales. No: A.Fib Discharge - Discharge Clinical Impression: Acute respiratory failure Qualifiers: Respiratory failure complication: unspecified whether with hypoxia or hype rcapnia Qualified Code(s): J96.00 - Acute respiratory failure, unspecified whether with hypoxia or hypercapnia Condition: Critical Disposition: ADMITTED INPATIENT Unit Admitted: ICU Referrals: BROCK ETIENNE PA-C [Primary Care Provider] - Follow up as needed
[2019-01-12] MEDS ORDERED: IPRATROPIUM/ALBUTEROL 0.5-2.5 MG/3 ML AMPUL NEB ONE ×2 (08:39→10:40)
[2019-01-12 08:41] LABS: ABSOLUTE BASOPHILS # (AUTO) 0.1 10^3/uL (0.0-0.2); ABSOLUTE EOSINOPHILS # (AUTO) 0.1 10^3/uL (0.0-0.6); ABSOLUTE LYMPHOCYTES (AUTO) 2.2 10^3/uL (0.5-4.7); ABSOLUTE NEUT (AUTO) 6.2 10^3/uL (1.7-8.2); BASOPHILS % (AUTO) 0.9 % (0-2); EOSINOPHILS % (AUTO) 0.9 % (0-6); HEMATOCRIT 40.6 % (37.9-51.0); HEMOGLOBIN 13.1 g/dL (13.5-17.0); MEAN CORPUSCULAR HEMOGLOBIN 31.9 pg (27.0-33.4); MEAN CORPUSCULAR HGB CONC 32.2 g/dL (32.0-36.0); MEAN CORPUSCULAR VOLUME 99 fl (80-97); MONOCYTES % (AUTO) 10.3 % (3-13); PLATELET COUNT 242 10^3/uL (150-450); RED BLOOD COUNT 4.09 10^6/uL (4.35-5.55); RED CELL DISTRIBUTION WIDTH 14.6 % (11.5-14.0); SEGMENTED NEUTROPHILS % (AUTO) 64.9 % (42-78); TOTAL CELLS COUNTED % (AUTO) 100 %; WHITE BLOOD COUNT 9.6 10^3/uL (4.0-10.5)
[2019-01-12 09:00] LABS: ALANINE AMINOTRANSFERASE 37 U/L (21-72); ALBUMIN 3.5 g/dL (3.5-5.0); ALKALINE PHOSPHATASE 79 U/L (38-126); ASPARTATE AMINO TRANSFERASE 27 U/L (17-59); BILIRUBIN,DIRECT 0.2 mg/dL (0.0-0.4); BILIRUBIN,TOTAL 0.3 mg/dL (0.2-1.3); BLOOD UREA NITROGEN 9 mg/dL (7-20); CALCIUM 8.8 mg/dL (8.4-10.2); CHLORIDE 101 mmol/L (98-107); CREATINE KINASE 34 U/L (55-170); GLUCOSE 129 mg/dL (75-110); POTASSIUM 4.6 mmol/L (3.6-5.0); TOTAL PROTEIN 6.3 g/dL (6.3-8.2)
[2019-01-12 09:01] LABS: INTERNATIONAL RATION (INR) 0.93; PROTHROMBIN TIME 12.4 SEC (11.4-15.4)
[2019-01-12 09:05] LABS: CARBON DIOXIDE 38 mmol/L (22-30)
[2019-01-12 09:13] LABS: ANION GAP 2 (5-19); CREATINE KINASE MB 1.46 ng/mL (<4.55); NT PRO BNP 728 pg/mL (5-900)
[2019-01-12 09:15] LABS: TROPONIN I < 0.012 ng/mL
[2019-01-12 09:16] LABS: VENOUS BLOOD BASE EXCESS 7.3 mmol/L; VENOUS BLOOD HCO3 41.2 mmol/L (20-32)
[2019-01-12 09:17] LABS: VENOUS BLOOD PCO2 128.1 mmHg (35-63); VENOUS BLOOD PH 7.13 (7.30-7.42)
[2019-01-12 09:27] LABS: ALCOHOL < 10 mg/dL (NONE DETECTED)
--- NOTE | 2019-01-12 09:52 | RADIOLOGY REPORT (SQ) ---
EXAM DESCRIPTION: CHEST SINGLE VIEW COMPLETED DATE/TIME: 01/12/2019 9:14 am REASON FOR STUDY: sob COMPARISON: 11/26/2018 NUMBER OF VIEWS: One view. TECHNIQUE: Single frontal radiographic view of the chest acquired. LIMITATIONS: None. FINDINGS: LUNGS AND PLEURA: Low lung volumes. Chronic elevation right diaphragm. No consolidation. MEDIASTINUM AND HILAR STRUCTURES: No masses. Contour normal. HEART AND VASCULAR STRUCTURES: Heart enlarged without failure. Normal vasculature. BONES: No acute findings. HARDWARE: None in the chest. OTHER: No other significant finding. IMPRESSION: HEART ENLARGED WITHOUT FAILURE. NO OTHER SIGNIFICANT RADIOGRAPHIC FINDING IN THE CHEST. TECHNICAL DOCUMENTATION: JOB ID: [id number] [employer]- All Rights Reserved Reading location - IP/workstation name: [email or web address]
[2019-01-12] MEDS ORDERED: ETOMIDATE INJ/PF 20 MG/10 ML SDV IV ONE ×2 (10:23→11:12)
[2019-01-12] MEDS ORDERED: PROPOFOL 1,000 MG/100 ML INFUS..BTL IV ONE (10:26)
[2019-01-12] MEDS ORDERED: FENTANYL CITRATE INJ/PF 100 MCG/2 ML AMPUL IV ONE (10:40)
[2019-01-12] MEDS: PROPOFOL 1,000 MG/100 ML INFUS..BTL IV PRN ×4 (11:05→20:20)
[2019-01-12] MEDS ORDERED: ROCURONIUM BROMIDE INJ 50 MG/5 ML VIAL IV ONE ×2 (11:12→20:06)
--- NOTE | 2019-01-12 11:13 | ER Document Report ---
ED General - General Chief Complaint: Shortness Of Breath Stated Complaint: TROUBLE BREATHING Time Seen by Provider: 01/12/19 08:18 Notes: Patient is a 58-year-old male with COPD, CHF that presents to the emergency department for chief complaint of shortness of breath, difficulty breathing. Patient states that her symptoms worsened over the past 24 hours, to the point that he decided to bring him back to the emergency department to be reevaluated, he recently was admitted, and had to be intubated at that time last month. He was in the hospital for at least 2 weeks. He has underlying COPD, is on 5 L of oxygen by nasal cannula, was found to be hypoxic today and breathing rather rapidly and is getting more confused. Patient unable to provide any significant history at this time due to his current mental state and increased work of breathing he is currently on BiPAP. Past Medical History: COPD, atrial fibrillation, CHF, hypertension Past Surgical History: Reviewed, no pertinent surgical history Social History: Former heavy smoker, and ETOH use, no illicit drug use. Family History: Reviewed and noncontributory for presenting illness Allergies: Reviewed, see documented allergy list. REVIEW OF SYSTEMS: Other than noted above, the 12 point review of systems was reviewed with the patient and were negative, all pertinent findings are included in the HPI. PHYSICAL EXAMINATION: Vital signs reviewed, nursing noted reviewed. GENERAL: Patient appears older than stated age, somnolent, appears confused, and in respiratory distress. HEAD: Atraumatic, normocephalic. EYES: Eyes appear normal, extraocular movements intact, sclera anicteric, conjunctiva are normal. ENT: nares patent, oropharynx clear without exudates. Moist mucous membranes. NECK: Normal range of motion, supple without lymphadenopathy LUNGS: Diffuse wheezing throughout lung bernal, decreased air movement overall, and increased work of breathing, tachypneic HEART: Heart rate normal, irregular rhythm ABDOMEN: Soft, obese, mild distention, nontender, normoactive bowel sounds. No rebound, guarding, or rigidity. No masses appreciated. EXTREMITIES: Nontender, good range of motion, bilateral LE edema NEUROLOGICAL: No focal neurological deficits. Moves all extremities spontaneously Motor and sensory grossly intact on exam. PSYCH: Altered somnolent, does not appear anxious SKIN: Warm, Dry, normal turgor, no rashes or lesions noted on exposed skin TRAVEL OUTSIDE OF THE [place] IN LAST 30 DAYS: No - Related Data Allergies/Adverse Reactions: No Known Allergies Allergy (Verified 10/21/17 13:20) Past Medical History - General Information source: Patient, Relative - - Social History Smoking Status: Current Every Day Smoker Chew tobacco use (# tins/day): No Frequency of alcohol use: Heavy Drug Abuse: None Lives with: Family Family History: Hypertension Patient has suicidal ideation: No Patient has homicidal ideation: No - Past Medical History Cardiac Medical History: Reports: Hx Atrial Fibrillation, Hx Congestive Heart Failure, Hx Hypertension Pulmonary Medical History: Reports: Hx COPD - on 5L home O2, Hx Intubation - 11/11/18, Hx Respiratory Failure, Hx Sleep Apnea - noncompliant with CPAP Endocrine Medical History: Denies: Hx Diabetes Mellitus Type 1, Hx Diabetes Mellitus Type 2 Renal/ Medical History: Reports: Hx End Stage Renal Disease. 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 Laboratory data and imaging were ordered as appropriate for the patient's presenting symptoms and complaint, with consideration of any critical or life threatening conditions that may be associated with their obtained history and exam as noted above. Patient was treated with DuoNeb breathing treatments, received Solu-Medrol by EMS, patient was in respiratory distress, his blood gas demonstrated severe acute respiratory acidosis, was somnolent, was on BiPAP but not improving and actually seemingly getting worse during the period of time discussed with the patient and the patient's , he stated he was full code, and were agreeable to intubating the patient if needed. At this point I do think the patient was failing while on BiPAP, and will need to be intubated, this was set up, as described in intubation note, patient was sedated and paralyzed using RSI technique, and successfully intubated without complication. Results were reviewed when available and demonstrated severe respiratory acidosis, chest x-ray was negative for evidence of pneumonia, no leukocytosis, therefore do not feel the patient is indicated to have IV antibiotics at this time. The patient was re-evaluated and was stable on the ventilator, and sedated with propofol Evaluation was most consistent with acute on chronic respiratory failure with hypoxemia and hypercapnia, acute COPD exacerbation Results were discussed with the patient at this point after careful consideration I feel that that patient should be admitted to the hospital. This was discussed with the patient that it is in the best interest for their care to be admitted for further evaluation and management. Patient agreed with this plan of care. A call was placed to the admitting physician, Dr. Grande who graciously accepted the patient onto their service. *Note is created using voice recognition software and may contain spelling, syntax or grammatical errors. Laboratory 01/12/19 01/12/19 01/12/19 08:28 08:28 08:28 WBC 9.6 RBC 4.09 L Hgb 13.1 L Hct 40.6 MCV 99 H MCH 31.9 MCHC 32.2 RDW 14.6 H Plt Count 242 Seg Neutrophils % 64.9 Lymphocytes % 23.0 Monocytes % 10.3 Eosinophils % 0.9 Basophils % 0.9 Absolute Neutrophils 6.2 Absolute Lymphocytes 2.2 Absolute Monocytes 1.0 Absolute Eosinophils 0.1 Absolute Basophils 0.1 PT 12.4 INR 0.93 VBG pH VBG pCO2 VBG HCO3 VBG Base Excess Sodium 141.1 Potassium 4.6 Chloride 101 Carbon Dioxide 38 H Anion Gap 2 L BUN 9 Creatinine 0.82 Est GFR ( Amer) > 60 Est GFR (Non-Af Amer) > 60 Glucose 129 H Lactic Acid Calcium 8.8 Magnesium Total Bilirubin 0.3 Direct Bilirubin 0.2 Neonat Total Bilirubin Not Reportable Neonat Direct Bilirubin Not Reportable Neonat Indirect Bili Not Reportable AST 27 ALT 37 Alkaline Phosphatase 79 Creatine Kinase 34 L CK-MB (CK-2) Troponin I NT-Pro-B Natriuret Pep Total Protein 6.3 Albumin 3.5 Urine Color Urine Appearance Urine pH Ur Specific [place] Urine Protein Urine Glucose (UA) Urine Ketones Urine Blood Urine Nitrite Urine Bilirubin Urine Urobilinogen Ur Leukocyte Esterase Urine WBC (Auto) Urine RBC (Auto) Squamous Epi Cells Auto Urine Mucus (Auto) Urine Ascorbic Acid Urine Opiates Screen Urine Methadone Screen Ur Barbiturates Screen Ur Phencyclidine Scrn Ur Amphetamines Screen U Benzodiazepines Scrn Urine Cocaine Screen U Marijuana (THC) Screen Serum Alcohol 01/12/19 01/12/19 01/12/19 08:28 08:28 08:28 WBC RBC Hgb Hct MCV MCH MCHC RDW Plt Count Seg Neutrophils % Lymphocytes % Monocytes % Eosinophils % Basophils % Absolute Neutrophils Absolute Lymphocytes Absolute Monocytes Absolute Eosinophils Absolute Basophils PT INR VBG pH VBG pCO2 VBG HCO3 VBG Base Excess Sodium Potassium Chloride Carbon Dioxide Anion Gap BUN Creatinine Est GFR ( Amer) Est GFR (Non-Af Amer) Glucose Lactic Acid Calcium Magnesium 2.2 Total Bilirubin Direct Bilirubin Neonat Total Bilirubin Neonat Direct Bilirubin Neonat Indirect Bili AST ALT Alkaline Phosphatase Creatine Kinase CK-MB (CK-2) 1.46 Troponin I < 0.012 NT-Pro-B Natriuret Pep 728 Total Protein Albumin Urine Color Urine Appearance Urine pH Ur Specific [place] Urine Protein Urine Glucose (UA) Urine Ketones Urine Blood Urine Nitrite Urine Bilirubin Urine Urobilinogen Ur Leukocyte Esterase Urine WBC (Auto) Urine RBC (Auto) Squamous Epi Cells Auto Urine Mucus (Auto) Urine Ascorbic Acid Urine Opiates Screen Urine Methadone Screen Ur Barbiturates Screen Ur Phencyclidine Scrn Ur Amphetamines Screen U Benzodiazepines Scrn Urine Cocaine Screen U Marijuana (THC) Screen Serum Alcohol < 10 01/12/19 01/12/19 01/12/19 08:52 08:52 11:34 WBC RBC Hgb Hct MCV MCH MCHC RDW Plt Count Seg Neutrophils % Lymphocytes % Monocytes % Eosinophils % Basophils % Absolute Neutrophils Absolute Lymphocytes Absolute Monocytes Absolute Eosinophils Absolute Basophils PT INR VBG pH 7.13 L* VBG pCO2 128.1 H* VBG HCO3 41.2 H VBG Base Excess 7.3 Sodium Potassium Chloride Carbon Dioxide Anion Gap BUN Creatinine Est GFR ( Amer) Est GFR (Non-Af Amer) Glucose Lactic Acid 0.9 Calcium Magnesium Total Bilirubin Direct Bilirubin Neonat Total Bilirubin Neonat Direct Bilirubin Neonat Indirect Bili AST ALT Alkaline Phosphatase Creatine Kinase CK-MB (CK-2) Troponin I NT-Pro-B Natriuret Pep Total Protein Albumin Urine Color STRAW Urine Appearance CLEAR Urine pH 6.0 Ur Specific [place] 1.010 Urine Protein NEGATIVE Urine Glucose (UA) NEGATIVE Urine Ketones NEGATIVE Urine Blood NEGATIVE Urine Nitrite NEGATIVE Urine Bilirubin NEGATIVE Urine Urobilinogen NEGATIVE Ur Leukocyte Esterase NEGATIVE Urine WBC (Auto) 1 Urine RBC (Auto) 1 Squamous Epi Cells Auto <1 Urine Mucus (Auto) RARE Urine Ascorbic Acid NEGATIVE Urine Opiates Screen Urine Methadone Screen Ur Barbiturates Screen Ur Phencyclidine Scrn Ur Amphetamines Screen U Benzodiazepines Scrn Urine Cocaine Screen U Marijuana (THC) Screen Serum Alcohol 01/12/19 11:34 WBC RBC Hgb Hct MCV MCH MCHC RDW Plt Count Seg Neutrophils % Lymphocytes % Monocytes % Eosinophils % Basophils % Absolute Neutrophils Absolute Lymphocytes Absolute Monocytes Absolute Eosinophils Absolute Basophils PT INR VBG pH VBG pCO2 VBG HCO3 VBG Base Excess Sodium Potassium Chloride Carbon Dioxide Anion Gap BUN Creatinine Est GFR ( Amer) Est GFR (Non-Af Amer) Glucose Lactic Acid Calcium Magnesium Total Bilirubin Direct Bilirubin Neonat Total Bilirubin Neonat Direct Bilirubin Neonat Indirect Bili AST ALT Alkaline Phosphatase Creatine Kinase CK-MB (CK-2) Troponin I NT-Pro-B Natriuret Pep Total Protein Albumin Urine Color Urine Appearance Urine pH Ur Specific [place] Urine Protein Urine Glucose (UA) Urine Ketones Urine Blood Urine Nitrite Urine Bilirubin Urine Urobilinogen Ur Leukocyte Esterase Urine WBC (Auto) Urine RBC (Auto) Squamous Epi Cells Auto Urine Mucus (Auto) Urine Ascorbic Acid Urine Opiates Screen NEGATIVE Urine Methadone Screen NEGATIVE Ur Barbiturates Screen NEGATIVE Ur Phencyclidine Scrn NEGATIVE Ur Amphetamines Screen NEGATIVE U Benzodiazepines Scrn UNCONFIRMED POSITIVE Urine Cocaine Screen NEGATIVE U Marijuana (THC) Screen NEGATIVE Serum Alcohol Head CT 01/12/19 00:00 IMPRESSION: NO ACUTE INTRACRANIAL FINDINGS. EVIDENCE OF ACUTE STROKE: NO. Chest X-Ray 01/12/19 11:10 IMPRESSION: Good position of support apparatus. No pneumothorax. KUB X-Ray 01/12/19 11:51 IMPRESSION: NG tube tip overlies the body of the stomach, side port appears below the GE junction. - Vital Signs Vital signs: Temp Pulse Resp BP Pulse Ox 97.5 F 79 12 112/85 100 01/12/19 14:00 01/12/19 14:00 01/12/19 14:00 01/12/19 14:00 01/12/19 14:00 - Laboratory Result Diagrams: 01/12/19 08:28 01/12/19 08:28 Laboratory results interpreted by me: 01/12/19 01/12/19 01/12/19 08:28 08:28 08:52 RBC 4.09 L Hgb 13.1 L MCV 99 H RDW 14.6 H VBG pH 7.13 L* VBG pCO2 128.1 H* VBG HCO3 41.2 H Carbon Dioxide 38 H Anion Gap 2 L Glucose 129 H Creatine Kinase 34 L - EKG Interpretation by Me Additional EKG results interpreted by me: EKG demonstrates sinus rhythm with a ventricular rate of 91 bpm, normal axis, normal intervals, no evidence of acute ischemia in this EKG. No significant change from prior. Procedures - Intubation Orotracheal Airway evaluation: Normal anatomy, Large tongue, Obese Mallampati Classification: Class 4 Medications: Etomidate - 20mg, Other - rocuronium 75mg Intubation method: Orotracheal Blade type: Isabella Blade size: 4 Equipment used: Glidescope ETT size: 8.0 ETT secured at: Lips ETT secured at (cm): 23 Breath Sounds after Intubation: Equal End tidal CO2 confirmed: Yes Ventilator settings: SIMV Post Intubation Xray: Yes Intubation Complications: No complications Critical Care Note - Critical Care Note Comments: Critical care time 50 minutes exclusive from separate billable procedures for a patient requiring complex medical decision making, and high potential for clinical deterioration. In a patient with acute on chronic respiratory failure requiring intubation and ultimately admission to the ICU. Time spent obtaining history from patient or surrogate, discussions with consultants, development of treatment plan with patient or surrogate, evaluation of patient's response to treatment, examination of patient, ordering and performing treatments and interv entions, ordering and review of laboratory studies, re-evaluation of patient's condition, ordering and review of radiographic studies and review of old charts Discharge - Discharge Clinical Impression: Acute on chronic respiratory acidosis Acute respiratory failure Qualifiers: Respiratory failure complication: unspecified whether with hypoxia or hypercapnia Qualified Code(s): J96.00 - Acute respiratory failure, unspecified whether with hypoxia or hypercapnia Condition: Critical Disposition: ADMITTED INPATIENT Admitting Provider: Christiane (Hospitalist) Unit Admitted: ICU
[2019-01-12] MEDS ORDERED: METHYLPREDNISOLONE INJ 125 MG/2 ML SDV IV ONE (11:15)
[2019-01-12] MEDS ORDERED: ONDANSETRON HCL INJ/PF 4 MG/2 ML SDV IV PRN (11:49)
[2019-01-12] MEDS ORDERED: ACETAMINOPHEN 325 MG TABLET PO PRN (11:49)
--- NOTE | 2019-01-12 11:49 | RADIOLOGY REPORT (SQ) ---
EXAM DESCRIPTION: CHEST SINGLE VIEW COMPLETED DATE/TIME: 01/12/2019 11:27 am REASON FOR STUDY: ET tube verification COMPARISON: Earlier the same day. NUMBER OF VIEWS: One view. TECHNIQUE: Single frontal radiographic image of the chest acquired. LIMITATIONS: Overlying support apparatus. FINDINGS: LUNGS AND PLEURA: Low lung volumes. No pneumothorax. MEDIASTINUM AND HEART: Stable heart size and mediastinal structures. SUPPORT DEVICES: Endotracheal tube tip between thoracic inlet and ruddy. Nasogastric tube extends i nto the left upper quadrant. BONY STRUCTURES: No acute findings. HARDWARE: None. OTHER: No other significant finding. IMPRESSION: Good position of support apparatus. No pneumothorax. Reading location - IP/workstation name: [email or web address]
[2019-01-12 12:00] LABS: APPEARANCE,URINE CLEAR; BILIRUBIN,URINE NEGATIVE (NEGATIVE); COLOR,URINE STRAW; GLUCOSE, URINE NEGATIVE (NEGATIVE); KETONES,URINE NEGATIVE (NEGATIVE); LEUKOCYTE ESTERASE,URINE NEGATIVE (NEGATIVE); NITRITE,URINE NEGATIVE (NEGATIVE); PROTEIN,URINE NEGATIVE (NEGATIVE); UROBILINOGEN,URINE NEGATIVE mg/dL (<2.0)
[2019-01-12] MEDS ORDERED: PHARMACY COMMUNICATION ORDER MC NR ×2 (12:00→12:30)
--- NOTE | 2019-01-12 12:16 | PDOC H&P ---
History of Present Illness Admission Date/PCP: BROCK ETIENNE PA-C Patient complains of: Brought in by family with change in mental status History of Present Illness: KAMERON TRUJILLO is a 58 year old male with history of chronic smoking, COPD on home oxygen 4 L, history of congestive heart failure, atrial fibrillation not on anticoagulation, heavy alcohol user, obesity came to the emergency room with change in mental status. As per his he is acting right and I decided to bring him to the hospital for further evaluation. At the time of my examination nobody is at bedside. I tried to call Tiffany patient's but no response. As per the ER physician he came with altered mental status PCO2 is 128 he is not doing well on the BiPAP so they proceeded to intubate the patient. 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 Musculoskeltal Medical History: Denies: Fibromyalgia Psychiatric Medical History: Reports: Depression Traumatic Medical History: Denies: Gunshot Wound Hematology: Denies: Sickle Cell Disease Infectious Medical History: Denies: Clostridium Difficile Past Surgical History Past Surgical History: Reports: None, Other - Unknown Social History Lives with: Family Smoking Status: Current Every Day Smoker Frequency of Alcohol Use: Rare Hx Recreational Drug Use: No Drugs: None Hx Prescription Drug Abuse: No Family History Family History: Hypertension Parental Family History Reviewed: Yes - Family history of heart disease present. Children Family History Reviewed: Yes Sibling(s) Family History Reviewed.: Yes Medication/Allergy Allergies/Adverse Reactions: No Known Allergies Allergy (Verified 10/21/17 13:20) Review of Systems ROS unobtainable: Due to endotracheal tube Physical Exam Vital Signs: Temp Pulse Resp BP Pulse Ox 97.8 F 12 111/70 96 01/12/19 08:22 01/12/19 11:51 01/12/19 11:51 01/12/19 11:51 Intake & Output 01/11/19 01/12/19 01/13/19 06:59 06:59 06:59 Weight 113.7 kg General appearance: PRESENT: other - pt is presently intubated and sedated. Eye exam: PRESENT: PERRLA Ear exam: PRESENT: other - Noticed bleed from the nostrils. Mouth exam: PRESENT: moist, tongue midline Neck exam: ABSENT: carotid bruit, JVD, lymphadenopathy, thyromegaly Respiratory exam: PRESENT: other - With ET tube under sedation. Bilateral air entry is good. Cardiovascular exam: PRESENT: RRR. ABSENT: diastolic murmur, rubs, systolic murmur GI/Abdominal exam: PRESENT: normal bowel sounds, soft, other - NG tube in place.. ABSENT: distended, guarding, mass, organolmegaly, rebound, tenderness Rectal exam: PRESENT: deferred Gentrourinary exam: PRESENT: indwelling catheter Neurological exam: PRESENT: other - Patient is under sedation and intubated. Results Laboratory Results: 01/12/19 08:28 01/12/19 08:28 01/12/19 01/12/19 01/12/19 08:28 08:28 08:28 WBC 9.6 RBC 4.09 L Hgb 13.1 L Hct 40.6 MCV 99 H MCH 31.9 MCHC 32.2 RDW 14.6 H Plt Count 242 Seg Neutrophils % 64.9 Lymphocytes % 23.0 Monocytes % 10.3 Eosinophils % 0.9 Basophils % 0.9 Absolute Neutrophils 6.2 Absolute Lymphocytes 2.2 Absolute Monocytes 1.0 Absolute Eosinophils 0.1 Absolute Basophils 0.1 VBG pH VBG pCO2 VBG HCO3 VBG Base Excess Sodium 141.1 Potassium 4.6 Chloride 101 Carbon Dioxide 38 H Anion Gap 2 L BUN 9 Creatinine 0.82 Est GFR ( Amer) > 60 Est GFR (Non-Af Amer) > 60 Glucose 129 H Lactic Acid Calcium 8.8 Magnesium 2.2 Total Bilirubin 0.3 AST 27 ALT 37 Alkaline Phosphatase 79 Total Protein 6.3 Albumin 3.5 Urine Color Urine Appearance Urine pH Ur Specific [place] Urine Protein Urine Glucose (UA) Urine Ketones Urine Blood Urine Nitrite Ur Leukocyte Esterase Urine WBC (Auto) Urine RBC (Auto) 01/12/19 01/12/19 01/12/19 08:52 08:52 11:34 WBC RBC Hgb Hct MCV MCH MCHC RDW Plt Count Seg Neutrophils % Lymphocytes % Monocytes % Eosinophils % Basophils % Absolute Neutrophils Absolute Lymphocytes Absolute Monocytes Absolute Eosinophils Absolute Basophils VBG pH 7.13 L* VBG pCO2 128.1 H* VBG HCO3 41.2 H VBG Base Excess 7.3 Sodium Potassium Chloride Carbon Dioxide Anion Gap BUN Creatinine Est GFR ( Amer) Est GFR (Non-Af Amer) Glucose Lactic Acid 0.9 Calcium Magnesium Total Bilirubin AST ALT Alkaline Phosphatase Total Protein Albumin Urine Color STRAW Urine Appearance CLEAR Urine pH 6.0 Ur Specific [place] 1.010 Urine Protein NEGATIVE Urine Glucose (UA) NEGATIVE Urine Ketones NEGATIVE Urine Blood NEGATIVE Urine Nitrite NEGATIVE Ur Leukocyte Esterase NEGATIVE Urine WBC (Auto) 1 Urine RBC (Auto) 1 01/12/19 01/12/19 08:28 08:28 Creatine Kinase 34 L CK-MB (CK-2) 1.46 Troponin I < 0.012 NT-Pro-B Natriuret Pep 728 Impressions: Chest X-Ray 01/12/19 11:10 IMPRESSION: Good position of support apparatus. No pneumothorax. Assessment and Plan - Diagnosis (1) Acute on chronic respiratory acidosis Is this a current diagnosis for this admission?: Yes Plan: 01/12/2019-patient is going to be admitted to ICU as inpatient presently intubat ed on SIMV. In the emergency room VBG shows PCO2 128. He came in with altered mental status. GI prophylaxis DVT prophylaxis initiated as needed nebulizations are requested. Consultation with Dr. Kat was requested. To start him on IV Solu-Medrol 40 mg every 8 hours. NG tube is in place Chan's catheter in place. To do the daily ABGs and chest x-rays including routine labs. (2) Altered mental status Qualifiers: Altered mental status type: coma Coma depth: Manjula coma 3-8 Coma timing: in the field (EMT or ambulance) Qualified Code(s): R40.2431 - Manj[place] coma scale score 3-8, in the field [EMT or ambulance] Is this a current diagnosis for this admission?: Yes Plan: 01/12/2019-patient came in with altered mental status most likely secondary to CO2 retention. Presently is intubated. To do the CT head without contrast when is stable. (3) CHF (congestive heart failure) Qualifiers: Heart failure type: right-sided Heart failure chronicity: acute on chronic Qualified Code(s): I50.813 - Acute on chronic right heart failure Is this a current diagnosis for this admission?: No Plan: 01/12/2019-patient has history of chronic systolic heart failure presently he is not in fluid overload. Chest x-ray shows no evidence of pulmonary edema. Plan is to closely monitor his labs including BNP. (4) HTN (hypertension) Qualifiers: Hypertension type: essential hypertension Qualified Code(s): I10 - Essential (primary) hypertension Is this a current diagnosis for this admission?: No Plan: 01/12/2019-patient has history of hypertension his blood pressure today is 111/70. Plan is to closely monitor the blood pressures every 2 hours. (5) Obesity (BMI 30-39.9) Is this a current diagnosis for this admission?: No Plan: 01/12/2019-patient BMI is more than 35 once he is extubated diet exercise weight loss will be advised on dietary consult will be requested. (6) COPD (chronic obstructive pulmonary disease) Qualifiers: Emphysema type: unspecified Is this a current diagnosis for this admission?: No Plan: 01/12/2019-patient has history of COPD secondary to chronic smoking he is on 5 L of oxygen at home. He is also CPAP is a CPAP at night. COPD exacerbation may be also the contributing factor for acute respiratory failure. (7) Atrial fibrillation Is this a current diagnosis for this admission?: No Plan: 01/12/2019-patient has history of atrial fibrillation not on anticoagulation. Plan is to closely follow the heart rhythm. (8) Tobacco abuse Is this a current diagnosis for this admission?: Yes Plan: 01/12/2019-patient is a daily smoker smokes close to 1 pack/day once he is extubated smoking counseling will be provided. (9) Alcohol abuse Is this a current diagnosis for this admission?: No Plan: 01/12/2019-patient has history of heavy alcohol use plan is to place him on watch for DTs and started on Ativan 2 mg IV every 2 hours as needed and fentanyl 100 mcg IV every 4 as needed. - Time Time Spent with patient: 25-34 minutes Medications reviewed and adjusted accordingly: Yes Anticipated discharge: Home
[2019-01-12] MEDS ORDERED: ACETAMINOPHEN 325 MG TABLET NG PRN (12:30)
[2019-01-12 13:13] LABS: URINE AMPHETAMINES SCREEN NEGATIVE; URINE BARBITURATES SCREEN NEGATIVE; URINE BENZODIAZEPINES SCREEN UNCONFIRMED POSITIVE; URINE COCAINE SCREEN NEGATIVE; URINE MARIJUANA (THC) SCREEN NEGATIVE; URINE METHADONE SCREEN NEGATIVE; URINE PHENCYCLIDINE SCREEN NEGATIVE
--- NOTE | 2019-01-12 13:21 | RADIOLOGY REPORT (SQ) ---
EXAM DESCRIPTION: KUB/ABDOMEN (SINGLE VIEW) COMPLETED DATE/TIME: 01/12/2019 12:43 pm REASON FOR STUDY: Check Placement of NG Tube COMPARISON: None. NUMBER OF VIEWS: One view. TECHNIQUE: Supine radiographic image of the abdomen acquired. LIMITATIONS: None. FINDINGS: BOWEL GAS PATTERN: Non-obstructive bowel gas pattern. No dilated loops. CALCIFICATIONS: No suspicious calcifications. SOFT TISSUES: No gross mass or suggestion of organomegaly. HARDWARE: NG tube tip overlies the body of the stomach, side port appears below the GE junction. BONES: No acute fracture. No worrisome bone lesions. OTHER: No other significant finding. IMPRESSION: NG tube tip overlies the body of the stomach, side port appears below the GE junction. TECHNICAL DOCUMENTATION: JOB ID: [id number] 2010 [employer] All Rights Reserved Reading location - IP/workstation name: [email or web address]
--- NOTE | 2019-01-12 13:36 | RADIOLOGY REPORT (SQ) ---
EXAM DESCRIPTION: CT HEAD WITHOUT COMPLETED DATE/TIME: 01/12/2019 1:26 pm REASON FOR STUDY: alterd mental status COMPARISON: 11/10/2018 TECHNIQUE: Axial images acquired through the brain without intravenous contrast. Images reviewed wit h bone, brain and subdural windows. Images stored on PACS. All CT scanners at this facility use dose modulation, iterative reconstruction, and/or weight based d osing when appropriate to reduce radiation dose to as low as reasonably achievable (ALARA). [facility]: Dose Right [facility]: CareDose [facility]: Dose Right [facility]: Teradose 4D [facility]: Smart Zipari RADIATION DOSE: CT Rad equipment meets quality standard of care and radiation dose reduction techniq ues were employed. CTDIvol: 53.2 mGy. DLP: 1044 mGy-cm.. LIMITATIONS: None. FINDINGS: VENTRICLES: Normal size and contour. CEREBRUM: No masses. No hemorrhage. No midline shift. Age appropriate white matter. No evidence for a cute infarction. CEREBELLUM: No masses. No hemorrhage. No alteration of density. No evidence for acute infarction. EXTRA-AXIAL SPACES: No fluid collections. ORBITS AND GLOBE: No intra- or extraconal masses. Normal contour of globe without masses. CALVARIUM: No fracture. PARANASAL SINUSES: No fluid levels. Mild mucosal thickening. SOFT TISSUES: No mass or hematoma. OTHER: No other significant finding. IMPRESSION: NO ACUTE INTRACRANIAL FINDINGS. EVIDENCE OF ACUTE STROKE: NO. TECHNICAL DOCUMENTATION: JOB ID: [id number] Quality ID # [id number]: Final reports with documentation of one or more dose reduction techniques (e.g., Au tomated exposure control, adjustment of the mA and/or kV according to patient size, use of iterative reconstruction technique) 2010 [employer]- All Rights Reserved Reading location - IP/workstation name: [email or web address]
[2019-01-12 14:39] LABS: ARTERIAL BLOOD BASE EXCESS 5.1 mmol/L; ARTERIAL BLOOD H2CO3 2.19 mmol/L (1.05-1.35); ARTERIAL BLOOD PH 7.29 (7.35-7.45); ARTERIAL BLOOD PO2 124.8 mmHg (80-100); ARTERIAL BLOOD TOTAL CO2 36.2 mmol/L (23-27)
[2019-01-12 14:44] LABS: ARTERIAL BLOOD FIO2 60%
[2019-01-12 14:46] LABS: ARTERIAL BLOOD PCO2 72.7 mmHg (35-45)
[2019-01-12 17:23] LABS: ARTERIAL BLOOD BASE EXCESS 3.7 mmol/L; ARTERIAL BLOOD H2CO3 1.64 mmol/L (1.05-1.35); ARTERIAL BLOOD HCO3 30.3 mmol/L (20-24); ARTERIAL BLOOD O2 SATURATION 93.9 % (94-98); ARTERIAL BLOOD PCO2 54.5 mmHg (35-45); ARTERIAL BLOOD PH 7.36 (7.35-7.45); ARTERIAL BLOOD PO2 72.8 mmHg (80-100)
[2019-01-12 17:24] LABS: ARTERIAL BLOOD FIO2 40%
[2019-01-12] MEDS: OLANZAPINE 5 MG TABLET NG SCH (17:41)
[2019-01-12] MEDS: LORAZEPAM INJ 2 MG/1 ML VIAL IV PRN (23:25)
[2019-01-13] MEDS: PROPOFOL 1,000 MG/100 ML INFUS..BTL IV PRN ×9 (00:02→23:37)
[2019-01-13] MEDS: FENTANYL CITRATE INJ/PF 100 MCG/2 ML AMPUL IV PRN ×2 (05:03→11:03)
[2019-01-13] MEDS: LORAZEPAM INJ 2 MG/1 ML VIAL IV PRN ×2 (05:03→11:02)
[2019-01-13 05:05] LABS: ARTERIAL BLOOD BASE EXCESS 7.9 mmol/L; ARTERIAL BLOOD H2CO3 1.51 mmol/L (1.05-1.35); ARTERIAL BLOOD HCO3 33.3 mmol/L (20-24); ARTERIAL BLOOD O2 SATURATION 96.8 % (94-98); ARTERIAL BLOOD PCO2 50.2 mmHg (35-45); ARTERIAL BLOOD PH 7.44 (7.35-7.45); ARTERIAL BLOOD PO2 87.5 mmHg (80-100); ARTERIAL BLOOD TOTAL CO2 34.9 mmol/L (23-27)
[2019-01-13 05:09] LABS: ARTERIAL BLOOD FIO2 50%
[2019-01-13 06:09] LABS: ABSOLUTE MONOCYTES (AUTO) 1.2 10^3/uL (0.1-1.4); ABSOLUTE NEUT (AUTO) 9.3 10^3/uL (1.7-8.2); BASOPHILS % (AUTO) 0.3 % (0-2); EOSINOPHILS % (AUTO) 0.3 % (0-6); HEMATOCRIT 35.2 % (37.9-51.0); HEMOGLOBIN 11.6 g/dL (13.5-17.0); LYMPHOCYTES % (AUTO) 16.1 % (13-45); MEAN CORPUSCULAR HEMOGLOBIN 31.7 pg (27.0-33.4); MEAN CORPUSCULAR HGB CONC 32.9 g/dL (32.0-36.0); MEAN CORPUSCULAR VOLUME 96 fl (80-97); MONOCYTES % (AUTO) 9.6 % (3-13); PLATELET COUNT 237 10^3/uL (150-450); RED BLOOD COUNT 3.66 10^6/uL (4.35-5.55); RED CELL DISTRIBUTION WIDTH 14.3 % (11.5-14.0); SEGMENTED NEUTROPHILS % (AUTO) 73.7 % (42-78); TOTAL CELLS COUNTED % (AUTO) 100 %; WHITE BLOOD COUNT 12.6 10^3/uL (4.0-10.5)
[2019-01-13 07:00] LABS: ALANINE AMINOTRANSFERASE 30 U/L (21-72); ALKALINE PHOSPHATASE 65 U/L (38-126); ASPARTATE AMINO TRANSFERASE 17 U/L (17-59); BILIRUBIN,DIRECT 0.2 mg/dL (0.0-0.4); BILIRUBIN,TOTAL 0.2 mg/dL (0.2-1.3); BLOOD UREA NITROGEN 12 mg/dL (7-20); CALCIUM 9.2 mg/dL (8.4-10.2); CHOLESTEROL 156.72 mg/dL (0-200); GLUCOSE 93 mg/dL (75-110); PHOSPHORUS 2.8 mg/dL (2.5-4.5); TOTAL PROTEIN 5.4 g/dL (6.3-8.2); TRIGLYCERIDES 130 mg/dL (<150)
[2019-01-13 07:05] LABS: CARBON DIOXIDE 35 mmol/L (22-30); CHLORIDE 99 mmol/L (98-107)
[2019-01-13 07:12] LABS: ANION GAP 3 (5-19); DIRECT LDL 80 mg/dL (<100)
[2019-01-13] MEDS: ALBUTEROL SULFATE 0.083% NEB 2.5 MG/3 ML AMPUL NEB PRN (09:01)
[2019-01-13] MEDS: OLANZAPINE 5 MG TABLET NG SCH ×2 (09:09→17:22)
[2019-01-13] MEDS: ENOXAPARIN SODIUM INJ 40 MG/0.4 ML DISP.SYRIN SUBCUT SCH (09:09)
[2019-01-13] MEDS ORDERED: DEXTROSE 40% GEL 15 GM TUBE PO PRN ×2 (14:41)
[2019-01-13] MEDS ORDERED: GLUCAGON,HUMAN RECOMB 1 MG INJ IM PRN (14:41)
[2019-01-13] MEDS ORDERED: DEXTROSE 50%-WATER 25 GM/50 ML DISP.SYRIN IV PRN ×2 (14:41)
--- NOTE | 2019-01-13 15:32 | RADIOLOGY REPORT (SQ) ---
EXAM DESCRIPTION: CHEST SINGLE VIEW COMPLETED DATE/TIME: 01/13/2019 3:11 pm REASON FOR STUDY: Respiratory failure COMPARISON: 01/12/2019 EXAM PARAMETERS: NUMBER OF VIEWS: One view. TECHNIQUE: Single frontal radiographic view of the chest acquired. RADIATION DOSE: NA LIMITATIONS: None. FINDINGS: LUNGS AND PLEURA: Bibasilar opacities slightly more so on the left lung, mild increase si nce the prior study. No pneumothorax or pleural effusion. MEDIASTINUM AND HILAR STRUCTURES: No masses. Contour normal. HEART AND VASCULAR STRUCTURES: Stable in appearance. BONES: No acute findings. HARDWARE: Nasogastric tube overlies the fundus-proximal body of the stomach. The tip of the endotra cheal tube is approximately 5.4 cm proximal to the ruddy. OTHER: No other significant finding. IMPRESSION: 1. Since the previous examination dated 01/12/2018, mild increase in the bibasilar opaci ties, may represent infiltrate/atelectasis. 2. Support apparatus is again identified. TECHNICAL DOCUMENTATION: JOB ID: [id number] [employer]- All Rights Reserved Reading location - IP/workstation name: [email or web address]
[2019-01-13] MEDS: BUPROPION HCL 100 MG TABLET NG SCH ×2 (16:05→21:07)
[2019-01-13] MEDS: INSULIN REG, HUMAN 100 UNIT/ML 3 ML VIAL (PYX) SUBCUT SCH ×2 (17:24→23:14)
--- NOTE | 2019-01-13 18:41 | EKG REPORT ---
SEVERITY:- NORMAL ECG - SINUS RHYTHM : Confirmed by: Reno Lemon MD 13-Jan-2019 18:41:05
[2019-01-14] MEDS: FENTANYL CITRATE INJ/PF 100 MCG/2 ML AMPUL IV PRN ×2 (01:55→18:26)
[2019-01-14] MEDS: PROPOFOL 1,000 MG/100 ML INFUS..BTL IV PRN ×6 (03:11→21:09)
[2019-01-14 03:42] LABS: ARTERIAL BLOOD BASE EXCESS 7.4 mmol/L; ARTERIAL BLOOD H2CO3 1.46 mmol/L (1.05-1.35); ARTERIAL BLOOD HCO3 32.6 mmol/L (20-24); ARTERIAL BLOOD O2 SATURATION 97.4 % (94-98); ARTERIAL BLOOD PCO2 48.5 mmHg (35-45); ARTERIAL BLOOD PH 7.45 (7.35-7.45); ARTERIAL BLOOD PO2 95.1 mmHg (80-100); ARTERIAL BLOOD TOTAL CO2 34.1 mmol/L (23-27)
[2019-01-14 03:43] LABS: ARTERIAL BLOOD FIO2 50%
[2019-01-14] MEDS: LORAZEPAM INJ 2 MG/1 ML VIAL IV PRN ×2 (03:49→08:03)
[2019-01-14 04:04] LABS: BLOOD UREA NITROGEN 12 mg/dL (7-20); CARBON DIOXIDE 33 mmol/L (22-30); GLUCOSE 90 mg/dL (75-110); PHOSPHORUS 3.2 mg/dL (2.5-4.5); POTASSIUM 3.9 mmol/L (3.6-5.0)
[2019-01-14 04:10] LABS: CHLORIDE 102 mmol/L (98-107)
[2019-01-14 04:11] LABS: ANION GAP 5 (5-19)
[2019-01-14] MEDS: INSULIN REG, HUMAN 100 UNIT/ML 3 ML VIAL (PYX) SUBCUT SCH ×4 (05:00→23:01)
--- NOTE | 2019-01-14 05:53 | PDOC PROGRESS REPORT ---
Subjective Progress Note for:: 01/13/19 Subjective:: The patient remains intubated and sedated. Reason For Visit: RESPIRATORY FAILURE Physical Exam Vital Signs: Temp Pulse Resp BP Pulse Ox 97.3 F 75 16 132/83 H 96 01/13/19 14:00 01/13/19 14:00 01/13/19 14:00 01/13/19 14:00 01/13/19 14:00 Intake & Output 01/12/19 01/13/19 01/14/19 06:59 06:59 06:59 Intake Total 537 300 Output Total 620 730 Balance -83 -430 Weight 110.3 kg General appearance: PRESENT: no acute distress, other - Intubated and sedated Head exam: PRESENT: atraumatic, normocephalic Ear exam: PRESENT: normal external ear exam Mouth exam: PRESENT: other - Endotracheal tube and orogastric tube in place Respiratory exam: PRESENT: clear to auscultation abi - Anteriorly, symmetrical. ABSENT: rales, rhonchi, tachypnea, wheezes Cardiovascular exam: PRESENT: RRR, +S1, +S2 GI/Abdominal exam: PRESENT: distended, hypoactive bowel sounds, soft. ABSENT: tenderness Rectal exam: PRESENT: deferred Gentrourinary exam: PRESENT: indwelling catheter Extremities exam: ABSENT: calf tenderness, pedal edema Musculoskeletal exam: PRESENT: normal inspection Neurological exam: PRESENT: oriented to person - Unable to assess. ABSENT: awake - Medicated and sedated Psychiatric exam: ABSENT: agitated Focused psych exam: ABSENT: restlessness Skin exam: PRESENT: dry, normal color, warm. ABSENT: rash Results Laboratory Results: 01/13/19 05:52 01/13/19 05:52 01/12/19 01/12/19 01/12/19 14:21 15:00 17:10 WBC RBC Hgb Hct MCV MCH MCHC RDW Plt Count Seg Neutrophils % Lymphocytes % Monocytes % Eosinophils % Basophils % Absolute Neutrophils Absolute Lymphocytes Absolute Monocytes Absolute Eosinophils Absolute Basophils Carbonic Acid 2.19 H 1.64 H HCO3/H2CO3 Ratio 15:1 18:1 ABG pH 7.29 L 7.36 ABG pCO2 72.7 H* 54.5 H ABG pO2 124.8 H 72.8 L ABG HCO3 34.0 H 30.3 H ABG O2 Saturation 98.0 93.9 L ABG Base Excess 5.1 3.7 FiO2 60% 40% Sodium Potassium Chloride Carbon Dioxide Anion Gap BUN Creatinine Est GFR ( Amer) Est GFR (Non-Af Amer) Glucose Calcium Phosphorus Magnesium Total Bilirubin AST ALT Alkaline Phosphatase Total Protein Albumin Triglycerides 72 Cholesterol LDL Cholesterol Direct VLDL Cholesterol HDL Cholesterol TSH 01/13/19 01/13/19 01/13/19 04:39 05:52 05:52 WBC 12.6 H RBC 3.66 L Hgb 11.6 L Hct 35.2 L MCV 96 MCH 31.7 MCHC 32.9 RDW 14.3 H Plt Count 237 Seg Neutrophils % 73.7 Lymphocytes % 16.1 Monocytes % 9.6 Eosinophils % 0.3 Basophils % 0.3 Absolute Neutrophils 9.3 H Absolute Lymphocytes 2.0 Absolute Monocytes 1.2 Absolute Eosinophils 0.0 Absolute Basophils 0.0 Carbonic Acid 1.51 H HCO3/H2CO3 Ratio 22:1 ABG pH 7.44 ABG pCO2 50.2 H ABG pO2 87.5 ABG HCO3 33.3 H ABG O2 Saturation 96.8 ABG Base Excess 7.9 FiO2 50% Sodium 137.1 Potassium 4.0 Chloride 99 Carbon Dioxide 35 H Anion Gap 3 L BUN 12 Creatinine 0.84 Est GFR ( Amer) > 60 Est GFR (Non-Af Amer) > 60 Glucose 93 Calcium 9.2 Phosphorus 2.8 Magnesium 1.9 Total Bilirubin 0.2 AST 17 ALT 30 Alkaline Phosphatase 65 Total Protein 5.4 L Albumin 3.0 L Triglycerides 130 Cholesterol 156.72 LDL Cholesterol Direct 80 VLDL Cholesterol 26.0 HDL Cholesterol 60 TSH 01/13/19 05:52 WBC RBC Hgb Hct MCV MCH MCHC RDW Plt Count Seg Neutrophils % Lymphocytes % Monocytes % Eosinophils % Basophils % Absolute Neutrophils Absolute Lymphocytes Absolute Monocytes Absolute Eosinophils Absolute Basophils Carbonic Acid HCO3/H2CO3 Ratio ABG pH ABG pCO2 ABG pO2 ABG HCO3 ABG O2 Saturation ABG Base Excess FiO2 Sodium Potassium Chloride Carbon Dioxide Anion Gap BUN Creatinine Est GFR ( Amer) Est GFR (Non-Af Amer) Glucose Calcium Phosphorus Magnesium Total Bilirubin AST ALT Alkaline Phosphatase Total Protein Albumin Triglycerides Cholesterol LDL Cholesterol Direct VLDL Cholesterol HDL Cholesterol TSH 0.44 L 01/12/19 01/12/19 01/12/19 08:28 08:28 12:49 Creatine Kinase 34 L 30 L CK-MB (CK-2) 1.46 Troponin I < 0.012 NT-Pro-B Natriuret Pep 728 01/12/19 01/12/19 01/12/19 12:49 12:49 18:10 Creatine Kinase 27 L CK-MB (CK-2) Troponin I < 0.012 NT-Pro-B Natriuret Pep 859 01/12/19 01/13/19 01/13/19 18:10 00:26 00:26 Creatine Kinase 24 L CK-MB (CK-2) Troponin I < 0.012 < 0.012 NT-Pro-B Natriuret Pep 01/13/19 05:52 Creatine Kinase CK-MB (CK-2) Troponin I NT-Pro-B Natriuret Pep 287 Impressions: Head CT 01/12/19 00:00 IMPRESSION: NO ACUTE INTRACRANIAL FINDINGS. EVIDENCE OF ACUTE STROKE: NO. Chest X-Ray 01/12/19 11:10 IMPRESSION: Good position of support apparatus. No pneumothorax. KUB X-Ray 01/12/19 11:51 IMPRESSION: NG tube tip overlies the body of the stomach, side port appears below the GE junction. Assessment and Plan - Diagnosis (1) Acute and chronic respiratory failure with hypercapnia Is this a current diagnosis for this admission?: Yes Plan: 01/13/2019-the patient was admitted for acute on chronic respiratory failure with hypercapnia and required intubation. He is currently on SIMV with a rate of 16, tidal volume 500, PEEP of 5 and pressure support of 10. We will try and wean his FiO2. He has been stable overnight and we will initiate weaning. Because of his alcohol history he is on propofol with lorazepam and fentanyl as needed. He does require higher doses of medication. Will adjust medications based on his weaning. (2) Altered mental status Qualifiers: Altered mental status type: coma Coma depth: [place] coma 3-8 Coma timing: in the field (EMT or ambulance) Qualified Code(s): R40.2431 - [place] coma scale score 3-8, in the field [EMT or ambulance] Is this a current diagnosis for this admission?: Yes Plan: 01/13/2019-altered mental status on admission was due to hypercapnia. He is currently intubated and sedated and will reassess as we wean him from the medications. (3) CHF (congestive heart failure) Qualifiers: Heart failure type: right-sided Heart failure chronicity: acute on chronic Qualified Code(s): I50.813 - Acute on chronic right heart failure Is this a current diagnosis for this admission?: Yes Plan: 01/13/2019-on admission there was no evidence of failure but the patient does have chronic systolic heart failure. His pressure appears to be stabilizing. We will monitor his intake and output and I will start him back on his furosemide and other antihypertensive medications based on his vital signs as well as intake and output. (4) HTN (hypertension) Qualifiers: Hypertension type: essential hypertension Qualified Code(s): I10 - Essential (primary) hypertension Is this a current diagnosis for this admission?: Yes Plan: 01/13/2019-the patient is on multiple antihypertensive medications. Currently with sedation his blood pressure is reasonably controlled and we will monitor closely. I will resume his antihypertensive medications based on the weaning of his sedation and pain medications as well as his vital signs. (5) Alcohol abuse Is this a current diagnosis for this admission?: No Plan: 01/13/2019-the patient has a history of heavy alcohol use. He is currently on propofol and has fentanyl and lorazepam as needed. Will monitor for withdrawal. His serum alcohol level was normal on admission. Nursing states that per his his alcohol consumption has improved. (6) COPD (chronic obstructive pulmonary disease) Qualifiers: Emphysema type: unspecified Is this a current diagnosis for this admission?: Yes Plan: 01/13/2019-the patient is a tobacco user and continues despite being on 5 L of oxygen at home. He wears CPAP at night. We will continue inhaler therapies. Once he is weaned from the ventilator will resume his CPAP and inhaler regimen. He was intubated previously and each time it seems to be harder to get him off of the ventilator. Will wean as tolerated. (7) Obesity (BMI 30-39.9) Is this a current diagnosis for this admission?: Yes Plan: 01/13/2019-once the patient is off the ventilator we will place him on a cardiac diet. His obesity adds to his risk especially considering his hypertension and obstructive sleep apnea. (8) Tobacco abuse Is this a current diagnosis for this admission?: Yes Plan: 01/13/2019-we will order a nicotine patch as needed. - Time Time Spent with patient: 25-34 minutes Medications reviewed and adjusted accordingly: Yes
[2019-01-14] MEDS: BUPROPION HCL 100 MG TABLET NG SCH ×3 (06:16→21:10)
--- NOTE | 2019-01-14 07:12 | RADIOLOGY REPORT (SQ) ---
EXAM DESCRIPTION: XR CHEST 1 VIEW COMPLETED DATE/TME: 01/14/2019 14:45 CLINICAL HISTORY: 58 years Male, Respiratory failure COMPARISON: 2 days prior. NUMBER OF VIEWS/TECHNIQUE: 1/AP FINDINGS: Moderate streaky and patchy opacity bilateral lower lungs. Moderate lung volume. Pulmonary vascular congestion.Adequate appearing endotracheal tube. Adequate appearing enteric tube. Normal cardiac silhouette size. No pneumothorax. Stable bony thorax. IMPRESSION: No significant change.
[2019-01-14] MEDS: OLANZAPINE 5 MG TABLET NG SCH ×2 (09:43→17:28)
[2019-01-14] MEDS: ENOXAPARIN SODIUM INJ 40 MG/0.4 ML DISP.SYRIN SUBCUT SCH (09:43)
[2019-01-14] MEDS ORDERED: PANTOPRAZOLE SODIUM 40 MG VIAL IV ONE (13:13)
[2019-01-14] MEDS: AMINO AC/PROTEIN HYDR/WHEY PRO 11 GM/45 ML PKT NG SCH ×2 (14:24→17:28)
[2019-01-15] MEDS: PROPOFOL 1,000 MG/100 ML INFUS..BTL IV PRN ×6 (01:34→20:02)
[2019-01-15 03:43] LABS: ARTERIAL BLOOD BASE EXCESS 4.1 mmol/L; ARTERIAL BLOOD FIO2 40%; ARTERIAL BLOOD H2CO3 1.23 mmol/L (1.05-1.35); ARTERIAL BLOOD HCO3 28.2 mmol/L (20-24); ARTERIAL BLOOD O2 SATURATION 96.9 % (94-98); ARTERIAL BLOOD PCO2 40.8 mmHg (35-45); ARTERIAL BLOOD PH 7.46 (7.35-7.45); ARTERIAL BLOOD PO2 85.8 mmHg (80-100); ARTERIAL BLOOD TOTAL CO2 29.5 mmol/L (23-27)
[2019-01-15] MEDS: LORAZEPAM INJ 2 MG/1 ML VIAL IV PRN ×3 (03:55→12:38)
[2019-01-15 04:25] LABS: ABSOLUTE BASOPHILS # (AUTO) 0.1 10^3/uL (0.0-0.2); ABSOLUTE EOSINOPHILS # (AUTO) 0.2 10^3/uL (0.0-0.6); ABSOLUTE NEUT (AUTO) 5.7 10^3/uL (1.7-8.2); BASOPHILS % (AUTO) 0.8 % (0-2); HEMATOCRIT 40.1 % (37.9-51.0); HEMOGLOBIN 13.4 g/dL (13.5-17.0); LYMPHOCYTES % (AUTO) 22.9 % (13-45); MEAN CORPUSCULAR HEMOGLOBIN 31.9 pg (27.0-33.4); MEAN CORPUSCULAR HGB CONC 33.5 g/dL (32.0-36.0); MEAN CORPUSCULAR VOLUME 95 fl (80-97); PLATELET COUNT 244 10^3/uL (150-450); RED BLOOD COUNT 4.21 10^6/uL (4.35-5.55); RED CELL DISTRIBUTION WIDTH 14.6 % (11.5-14.0); SEGMENTED NEUTROPHILS % (AUTO) 63.3 % (42-78); TOTAL CELLS COUNTED % (AUTO) 100 %; WHITE BLOOD COUNT 8.9 10^3/uL (4.0-10.5)
[2019-01-15 04:40] LABS: ANION GAP 7 (5-19); BLOOD UREA NITROGEN 15 mg/dL (7-20); CALCIUM 8.9 mg/dL (8.4-10.2); CARBON DIOXIDE 30 mmol/L (22-30); CHLORIDE 102 mmol/L (98-107); GLUCOSE 93 mg/dL (75-110); PHOSPHORUS 5.4 mg/dL (2.5-4.5); POTASSIUM 3.7 mmol/L (3.6-5.0)
[2019-01-15] MEDS: BUPROPION HCL 100 MG TABLET NG SCH ×3 (05:08→21:39)
[2019-01-15] MEDS: INSULIN REG, HUMAN 100 UNIT/ML 3 ML VIAL (PYX) SUBCUT SCH ×3 (05:09→17:43)
--- NOTE | 2019-01-15 07:57 | RADIOLOGY REPORT (SQ) ---
EXAM DESCRIPTION: CHEST SINGLE VIEW COMPLETED DATE/TIME: 01/15/2019 7:44 am REASON FOR STUDY: resp failure/pna COMPARISON: 11/22/2018, 01/13/2019, 01/14/2019 EXAM PARAMETERS: NUMBER OF VIEWS: One view. TECHNIQUE: Single frontal radiographic view of the chest acquired. RADIATION DOSE: NA LIMITATIONS: None. FINDINGS: LUNGS AND PLEURA: Bibasilar airspace disease is present, unchanged. This may be chronic s carring, this is similar compared to 11/22/2018. No pleural effusions. No pneumothorax. MEDIASTINUM AND HILAR STRUCTURES: No masses. Contour normal. HEART AND VASCULAR STRUCTURES: Heart normal in size. Normal vasculature. BONES: No acute findings. HARDWARE: Endotracheal tube tip 5 cm above the ruddy. Nasogastric tube tip and side port in the sto mach. OTHER: No other significant finding. IMPRESSION: Continued bibasilar airspace disease likely scarring TECHNICAL DOCUMENTATION: JOB ID: [id number] [employer]- All Rights Reserved Reading location - IP/workstation name: [email or web address]
[2019-01-15] MEDS: OLANZAPINE 5 MG TABLET NG SCH ×2 (09:02→17:43)
[2019-01-15] MEDS: AMINO AC/PROTEIN HYDR/WHEY PRO 11 GM/45 ML PKT NG SCH ×3 (09:03→17:43)
[2019-01-15] MEDS: ENOXAPARIN SODIUM INJ 40 MG/0.4 ML DISP.SYRIN SUBCUT SCH (09:03)
[2019-01-15] MEDS: FENTANYL CITRATE INJ/PF 100 MCG/2 ML AMPUL IV PRN ×2 (10:31→16:26)
[2019-01-15] MEDS: PANTOPRAZOLE SODIUM 40 MG VIAL IV SCH (10:34)
--- NOTE | 2019-01-15 19:28 | PDOC PROGRESS REPORT ---
Subjective Progress Note for:: 01/15/19 Subjective:: Patient is resting comfortably on the ventilator. Does not appear to be agitated or in distress. Reason For Visit: RESPIRATORY FAILURE Physical Exam Vital Signs: Temp Pulse Resp BP Pulse Ox 98.4 F 87 24 H 116/74 95 01/15/19 12:00 01/15/19 14:00 01/15/19 14:00 01/15/19 14:00 01/15/19 14:00 Intake & Output 01/14/19 01/15/19 01/16/19 06:59 06:59 06:59 Intake Total 711 629 200 Output Total 2655 1755 450 Balance -1944 -1126 -250 Weight 110.5 kg 109.6 kg General appearance: PRESENT: no acute distress, obese, well-developed Head exam: PRESENT: atraumatic, normocephalic Ear exam: PRESENT: normal external ear exam Mouth exam: PRESENT: other - Endotracheal tube and orogastric tube in place Respiratory exam: PRESENT: clear to auscultation abi, symmetrical, unlabored. ABSENT: rales, rhonchi, tachypnea, wheezes Cardiovascular exam: PRESENT: RRR, +S1, +S2 GI/Abdominal exam: PRESENT: soft, other - Protuberant abdomen. ABSENT: tenderness Rectal exam: PRESENT: deferred Gentrourinary exam: PRESENT: indwelling catheter - [id number] Extremities exam: PRESENT: +1 edema - Both hands. ABSENT: pedal edema Musculoskeletal exam: PRESENT: normal inspection Neurological exam: PRESENT: other - Intubated and sedated Psychiatric exam: ABSENT: agitated Focused psych exam: ABSENT: restlessness Results Laboratory Results: 01/15/19 04:10 01/15/19 04:10 01/15/19 01/15/19 01/15/19 03:26 04:10 04:10 WBC 8.9 RBC 4.21 L Hgb 13.4 L Hct 40.1 MCV 95 MCH 31.9 MCHC 33.5 RDW 14.6 H Plt Count 244 Seg Neutrophils % 63.3 Lymphocytes % 22.9 Monocytes % 11.0 Eosinophils % 2.0 Basophils % 0.8 Absolute Neutrophils 5.7 Absolute Lymphocytes 2.0 Absolute Monocytes 1.0 Absolute Eosinophils 0.2 Absolute Basophils 0.1 Carbonic Acid 1.23 HCO3/H2CO3 Ratio 22:1 ABG pH 7.46 H ABG pCO2 40.8 ABG pO2 85.8 ABG HCO3 28.2 H ABG O2 Saturation 96.9 ABG Base Excess 4.1 FiO2 40% Sodium 139.1 Potassium 3.7 Chloride 102 Carbon Dioxide 30 Anion Gap 7 BUN 15 Creatinine 0.86 Est GFR ( Amer) > 60 Est GFR (Non-Af Amer) > 60 Glucose 93 Calcium 8.9 Phosphorus 5.4 H Magnesium 1.9 01/12/19 01/12/19 01/12/19 08:28 08:28 12:49 Creatine Kinase 34 L 30 L CK-MB (CK-2) 1.46 Troponin I < 0.012 NT-Pro-B Natriuret Pep 728 01/12/19 01/12/19 01/12/19 12:49 12:49 18:10 Creatine Kinase 27 L CK-MB (CK-2) Troponin I < 0.012 NT-Pro-B Natriuret Pep 859 01/12/19 01/13/19 01/13/19 18:10 00:26 00:26 Creatine Kinase 24 L CK-MB (CK-2) Troponin I < 0.012 < 0.012 NT-Pro-B Natriuret Pep 01/13/19 05:52 Creatine Kinase CK-MB (CK-2) Troponin I NT-Pro-B Natriuret Pep 287 Impressions: Head CT 01/12/19 00:00 IMPRESSION: NO ACUTE INTRACRANIAL FINDINGS. EVIDENCE OF ACUTE STROKE: NO. KUB X-Ray 01/12/19 11:51 IMPRESSION: NG tube tip overlies the body of the stomach, side port appears below the GE junction. Chest X-Ray 01/15/19 06:00 IMPRESSION: Continued bibasilar airspace disease likely scarring Assessment and Plan - Diagnosis (1) Acute and chronic respiratory failure with hypercapnia Is this a current diagnosis for this admission?: Yes Plan: 01/13/2019-the patient was admitted for acute on chronic respiratory failure with hypercapnia and required intubation. He is currently on SIMV with a rate of 16, tidal volume 500, PEEP of 5 and pressure support of 10. We will try and wean his FiO2. He has been stable overnight and we will initiate weaning. Because of his alcohol history he is on propofol with lorazepam and fentanyl as needed. He does require higher doses of medication. Will adjust medications based on his weaning. 01/15/2019-continue weaning trials. The patient does tend to get tachypnea and we believe some of this is behavioral as we have seen this before with previous intubations. Continue to titrate propofol and attempt weaning as tolerated. (2) Altered mental status Qualifiers: Altered mental status type: coma Coma depth: [place] coma 3-8 Coma timing: in the field (EMT or ambulance) Qualified Code(s): R40.2431 - [place] coma scale score 3-8, in the field [EMT or ambulance] Is this a current diagnosis for this admission?: Yes Plan: 01/13/2019-altered mental status on admission was due to hypercapnia. He is currently intubated and sedated and will reassess as we wean him from the medications. 01/15/2019-reexamine when patient is awake and alert (3) CHF (congestive heart failure) Qualifiers: Heart failure type: right-sided Heart failure chronicity: acute on chronic Qualified Code(s): I50.813 - Acute on chronic right heart failure Is this a current diagnosis for this admission?: Yes Plan: 01/13/2019-on admission there was no evidence of failure but the patient does h ave chronic systolic heart failure. His pressure appears to be stabilizing. We will monitor his intake and output and I will start him back on his furosemide and other antihypertensive medications based on his vital signs as well as intake and output. 01/15/2019-patient continues to remain in a negative fluid balance. No overt evidence of failure at this time. (4) HTN (hypertension) Qualifiers: Hypertension type: essential hypertension Qualified Code(s): I10 - Essential (primary) hypertension Is this a current diagnosis for this admission?: Yes Plan: 01/13/2019-the patient is on multiple antihypertensive medications. Currently with sedation his blood pressure is reasonably controlled and we will monitor closely. I will resume his antihypertensive medications based on the weaning of his sedation and pain medications as well as his vital signs. 01/14/2019-good blood pressure control. Currently off of his chronic medications. Continue to monitor. It is likely his blood pressure will increase as the propofol is weaned and he weans from the ventilator. (5) Alcohol abuse Is this a current diagnosis for this admission?: No Plan: 01/13/2019-the patient has a history of heavy alcohol use. He is currently on propofol and has fentanyl and lorazepam as needed. Will monitor for withdrawal. His serum alcohol level was normal on admission. Nursing states that per his his alcohol consumption has improved. 01/15/2019-no change in treatment plan at this time. (6) COPD (chronic obstructive pulmonary disease) Qualifiers: Emphysema type: unspecified Is this a current diagnosis for this admission?: Yes Plan: 01/13/2019-the patient is a tobacco user and continues despite being on 5 L of oxygen at home. He wears CPAP at night. We will continue inhaler therapies. Once he is weaned from the ventilator will resume his CPAP and inhaler regimen. He was intubated previously and each time it seems to be harder to get him off of the ventilator. Will wean as tolerated. 01/15/2019-we will continue current regimen while intubated and resume inhaler therapy post extubation (7) Obesity (BMI 30-39.9) Is this a current diagnosis for this admission?: Yes Plan: 01/13/2019-once the patient is off the ventilator we will place him on a cardiac diet. His obesity adds to his risk especially considering his hypertension and obstructive sleep apnea. (8) Tobacco abuse Is this a current diagnosis for this admission?: Yes Plan: 01/13/2019-we will order a nicotine patch as needed.
--- NOTE | 2019-01-15 19:34 | PDOC PROGRESS REPORT ---
Subjective Progress Note for:: 01/14/19 Subjective:: Remains intubated and sedated Reason For Visit: RESPIRATORY FAILURE Physical Exam Vital Signs: Temp Pulse Resp BP Pulse Ox 97.9 F 92 16 118/70 95 01/14/19 12:00 01/14/19 12:00 01/14/19 12:00 01/14/19 12:00 01/14/19 12:00 Intake & Output 01/13/19 01/14/19 01/15/19 06:59 06:59 06:59 Intake Total 537 711 169 Output Total 620 2655 1030 Balance -83 -1944 -861 Weight 110.3 kg 110.5 kg General appearance: PRESENT: no acute distress, obese Head exam: PRESENT: atraumatic, normocephalic Eye exam: PRESENT: conjunctiva pink. ABSENT: scleral icterus Ear exam: PRESENT: normal external ear exam Mouth exam: PRESENT: other - Endotracheal tube in place Respiratory exam: PRESENT: rales - Bilateral bases, symmetrical, unlabored. ABSENT: rhonchi, tachypnea - Ventilator driven, wheezes Cardiovascular exam: PRESENT: RRR, +S1, +S2 GI/Abdominal exam: PRESENT: hypoactive bowel sounds, soft. ABSENT: distended, tenderness Rectal exam: PRESENT: deferred Gentrourinary exam: PRESENT: indwelling catheter Extremities exam: PRESENT: pedal edema Neurological exam: PRESENT: other - Intubated and sedated Psychiatric exam: ABSENT: agitated Focused psych exam: ABSENT: restlessness Results Laboratory Results: 01/13/19 05:52 01/14/19 03:22 01/14/19 01/14/19 03:22 03:35 Carbonic Acid 1.46 H HCO3/H2CO3 Ratio 22:1 ABG pH 7.45 ABG pCO2 48.5 H ABG pO2 95.1 ABG HCO3 32.6 H ABG O2 Saturation 97.4 ABG Base Excess 7.4 FiO2 50% Sodium 139.5 Potassium 3.9 Chloride 102 Carbon Dioxide 33 H Anion Gap 5 BUN 12 Creatinine 0.87 Est GFR ( Amer) > 60 Est GFR (Non-Af Amer) > 60 Glucose 90 Calcium 9.0 Phosphorus 3.2 Magnesium 2.0 01/12/19 11:34 Chan Catheter Urine Culture - Final NO GROWTH 2 DAYS 01/12/19 14:28 Tracheal Aspirate Gram Stain - Final 01/12/19 14:28 Tracheal Aspirate Sputum Culture - Final NORMAL JULIA 01/12/19 01/12/19 01/12/19 08:28 08:28 12:49 Creatine Kinase 34 L 30 L CK-MB (CK-2) 1.46 Troponin I < 0.012 NT-Pro-B Natriuret Pep 728 01/12/19 01/12/19 01/12/19 12:49 12:49 18:10 Creatine Kinase 27 L CK-MB (CK-2) Troponin I < 0.012 NT-Pro-B Natriuret Pep 859 01/12/19 01/13/19 01/13/19 18:10 00:26 00:26 Creatine Kinase 24 L CK-MB (CK-2) Troponin I < 0.012 < 0.012 NT-Pro-B Natriuret Pep 01/13/19 05:52 Creatine Kinase CK-MB (CK-2) Troponin I NT-Pro-B Natriuret Pep 287 Impressions: Head CT 01/12/19 00:00 IMPRESSION: NO ACUTE INTRACRANIAL FINDINGS. EVIDENCE OF ACUTE STROKE: NO. KUB X-Ray 01/12/19 11:51 IMPRESSION: NG tube tip overlies the body of the stomach, side port appears below the GE junction. Chest X-Ray 01/14/19 14:45 IMPRESSION: No significant change. Assessment and Plan - Diagnosis (1) Acute and chronic respiratory failure with hypercapnia Is this a current diagnosis for this admission?: Yes Plan: 01/13/2019-the patient was admitted for acute on chronic respiratory failure with hypercapnia and required intubation. He is currently on SIMV with a rate of 16, tidal volume 500, PEEP of 5 and pressure support of 10. We will try and wean his FiO2. He has been stable overnight and we will initiate weaning. Because of his alcohol history he is on propofol with lorazepam and fentanyl as needed. He does require higher doses of medication. Will adjust medications based on his weaning. 01/14/2019-continue to attempt weaning. Wean from propofol as tolerated. He has not tolerated weaning very well as yet. 01/15/2019-continue weaning trials. The patient does tend to get tachypnea and we believe some of this is behavioral as we have seen this before with previous intubations. Continue to titrate propofol and attempt weaning as tolerated. (2) Altered mental status Qualifiers: Altered mental status type: coma Coma depth: [place] coma 3-8 Coma timing: in the field (EMT or ambulance) Qualified Code(s): R40.2431 - [place] coma scale score 3-8, in the field [EMT or ambulance] Is this a current diagnosis for this admission?: Yes Plan: 01/13/2019-altered mental status on admission was due to hypercapnia. He is currently intubated and sedated and will reassess as we wean him from the medications. 01/14/2019-unable to further assess at this time 01/15/2019-reexamine when patient is awake and alert (3) CHF (congestive heart failure) Qualifiers: Heart failure type: right-sided Heart failure chronicity: acute on chronic Qualified Code(s): I50.813 - Acute on chronic right heart failure Is this a current diagnosis for this admission?: Yes Plan: 01/13/2019-on admission there was no evidence of failure but the patient does have chronic systolic heart failure. His pressure appears to be stabilizing. We will monitor his intake and output and I will start him back on his furosemide and other antihypertensive medications based on his vital signs as well as intake and output. 01/14/2019-adjust diuretics to keep a negative fluid balance. 01/15/2019-patient continues to remain in a negative fluid balance. No overt evidence of failure at this time. (4) HTN (hypertension) Qualifiers: Hypertension type: essential hypertension Qualified Code(s): I10 - Essential (primary) hypertension Is this a current diagnosis for this admission?: Yes Plan: 01/13/2019-the patient is on multiple antihypertensive medications. Currently with sedation his blood pressure is reasonably controlled and we will monitor closely. I will resume his antihypertensive medications based on the weaning of his sedation and pain medications as well as his vital signs. 01/14/2019-blood pressures have been quite stable without resuming medications for his hypertension. He is remaining in a negative fluid balance and so at this point I do not feel is necessary to add diuretic therapy. We will continue to monitor. 01/14/2019-good blood pressure control. Currently off of his chronic medications. Continue to monitor. It is likely his blood pressure will increase as the propofol is weaned and he weans from the ventilator. (5) Alcohol abuse Is this a current diagnosis for this admission?: No Plan: 01/13/2019-the patient has a history of heavy alcohol use. He is currently on propofol and has fentanyl and lorazepam as needed. Will monitor for withdrawal. His serum alcohol level was normal on admission. Nursing states that per his his alcohol consumption has improved. 01/14/2019-when the patient weaned from propofol he gets quite tachypneic and seemingly agitated. This has happened in the past. Is currently on Zyprexa and Wellbutrin. Consider utilizing additional SSRI medications or other agents. He is on duloxetine at home but this cannot be crushed. 01/15/2019-no change in treatment plan at this time. (6) COPD (chronic obstructive pulmonary disease) Qualifiers: Emphysema type: unspecified Is this a current diagnosis for this admission?: Yes Plan: 01/13/2019-the patient is a tobacco user and continues despite being on 5 L of oxygen at home. He wears CPAP at night. We will continue inhaler therapies. Once he is weaned from the ventilator will resume his CPAP and inhaler regimen. He was intubated previously and each time it seems to be harder to get him off of the ventilator. Will wean as tolerated. 01/14/2019-continue current regimen. Continue weaning attempts as tolerated and once extubated resume his previous medication regimen 01/15/2019-we will continue current regimen while intubated and resume inhaler therapy post extubation (7) Obesity (BMI 30-39.9) Is this a current diagnosis for this admission?: Yes Plan: 01/13/2019-once the patient is off the ventilator we will place him on a cardiac diet. His obesity adds to his risk especially considering his hypertension and obstructive sleep apnea. (8) Tobacco abuse Is this a current diagnosis for this admission?: Yes Plan: 01/13/2019-we will order a nicotine patch as needed. - Time Time Spent with patient: 15-24 minutes Medications reviewed and adjusted accordingly: Yes
[2019-01-16] MEDS: PROPOFOL 1,000 MG/100 ML INFUS..BTL IV PRN ×7 (00:17→22:42)
[2019-01-16] MEDS: INSULIN REG, HUMAN 100 UNIT/ML 3 ML VIAL (PYX) SUBCUT SCH ×4 (00:18→17:34)
[2019-01-16] MEDS: LORAZEPAM INJ 2 MG/1 ML VIAL IV PRN ×5 (02:11→22:18)
[2019-01-16 04:08] LABS: ABSOLUTE BASOPHILS # (AUTO) 0.1 10^3/uL (0.0-0.2); ABSOLUTE EOSINOPHILS # (AUTO) 0.2 10^3/uL (0.0-0.6); ABSOLUTE LYMPHOCYTES (AUTO) 1.4 10^3/uL (0.5-4.7); ABSOLUTE MONOCYTES (AUTO) 0.8 10^3/uL (0.1-1.4); BASOPHILS % (AUTO) 0.8 % (0-2); EOSINOPHILS % (AUTO) 3.1 % (0-6); HEMATOCRIT 38.6 % (37.9-51.0); HEMOGLOBIN 13.1 g/dL (13.5-17.0); LYMPHOCYTES % (AUTO) 19.2 % (13-45); MEAN CORPUSCULAR HEMOGLOBIN 32.3 pg (27.0-33.4); MEAN CORPUSCULAR HGB CONC 33.9 g/dL (32.0-36.0); MEAN CORPUSCULAR VOLUME 95 fl (80-97); MONOCYTES % (AUTO) 10.6 % (3-13); PLATELET COUNT 242 10^3/uL (150-450); RED BLOOD COUNT 4.05 10^6/uL (4.35-5.55); RED CELL DISTRIBUTION WIDTH 14.7 % (11.5-14.0); SEGMENTED NEUTROPHILS % (AUTO) 66.3 % (42-78); TOTAL CELLS COUNTED % (AUTO) 100 %; WHITE BLOOD COUNT 7.5 10^3/uL (4.0-10.5)
[2019-01-16 04:16] LABS: ARTERIAL BLOOD BASE EXCESS 5.1 mmol/L; ARTERIAL BLOOD H2CO3 1.33 mmol/L (1.05-1.35); ARTERIAL BLOOD HCO3 29.8 mmol/L (20-24); ARTERIAL BLOOD PCO2 44.1 mmHg (35-45); ARTERIAL BLOOD PH 7.45 (7.35-7.45); ARTERIAL BLOOD PO2 78.3 mmHg (80-100); ARTERIAL BLOOD TOTAL CO2 31.2 mmol/L (23-27)
[2019-01-16 04:18] LABS: ARTERIAL BLOOD FIO2 40%
[2019-01-16 04:31] LABS: ANION GAP 5 (5-19); BLOOD UREA NITROGEN 16 mg/dL (7-20); CALCIUM 8.8 mg/dL (8.4-10.2); CARBON DIOXIDE 31 mmol/L (22-30); CHLORIDE 102 mmol/L (98-107); GLUCOSE 116 mg/dL (75-110); PHOSPHORUS 4.5 mg/dL (2.5-4.5); POTASSIUM 3.9 mmol/L (3.6-5.0)
[2019-01-16] MEDS: BUPROPION HCL 100 MG TABLET NG SCH ×3 (05:08→22:17)
[2019-01-16] MEDS: PANTOPRAZOLE SODIUM 40 MG VIAL IV SCH (09:10)
[2019-01-16] MEDS: ENOXAPARIN SODIUM INJ 40 MG/0.4 ML DISP.SYRIN SUBCUT SCH (09:10)
[2019-01-16] MEDS: OLANZAPINE 5 MG TABLET NG SCH ×2 (09:12→17:24)
[2019-01-16] MEDS: AMINO AC/PROTEIN HYDR/WHEY PRO 11 GM/45 ML PKT NG SCH ×3 (09:12→17:24)
[2019-01-16] MEDS: FENTANYL CITRATE INJ/PF 100 MCG/2 ML AMPUL IV PRN ×3 (10:44→22:17)
--- NOTE | 2019-01-16 20:05 | PDOC PROGRESS REPORT ---
Subjective Progress Note for:: 01/16/19 Subjective:: Patient is currently on IMV/PRVC. He was on pressure support for 4 hours this morning. He began to get tachypneic and we are resting him. We will plan to do another pressure support trial this afternoon. Reason For Visit: RESPIRATORY FAILURE Physical Exam Vital Signs: Temp Pulse Resp BP Pulse Ox 96.7 F L 75 18 146/98 H 94 01/16/19 08:00 01/16/19 10:00 01/16/19 10:29 01/16/19 10:29 01/16/19 12:14 Intake & Output 01/15/19 01/16/19 01/17/19 06:59 06:59 06:59 Intake Total 629 1010 100 Output Total 1755 1385 550 Balance -1126 -375 -450 Weight 109.6 kg 108.3 kg General appearance: PRESENT: no acute distress, other - Currently sedated and on SIMV/PRVC Head exam: PRESENT: atraumatic, normocephalic Ear exam: PRESENT: normal external ear exam Mouth exam: PRESENT: other - Endotracheal tube in place Respiratory exam: PRESENT: clear to auscultation abi - Anteriorly, symmetrical, unlabored. ABSENT: rales, rhonchi, wheezes Cardiovascular exam: PRESENT: RRR, +S1, +S2, systolic murmur - 2/6 GI/Abdominal exam: PRESENT: hypoactive bowel sounds, soft, other - Protuberant abdomen. ABSENT: distended, tenderness Rectal exam: PRESENT: deferred Gentrourinary exam: PRESENT: indwelling catheter Extremities exam: PRESENT: pedal edema, +1 edema - Slight puffiness in the hands Musculoskeletal exam: PRESENT: normal inspection Neurological exam: PRESENT: other - Intubated and sedated Psychiatric exam: ABSENT: agitated Focused psych exam: ABSENT: restlessness Skin exam: PRESENT: dry, warm. ABSENT: rash Results Laboratory Results: 01/16/19 03:42 01/16/19 03:42 01/16/19 01/16/19 01/16/19 03:42 03:42 04:07 WBC 7.5 RBC 4.05 L Hgb 13.1 L Hct 38.6 MCV 95 MCH 32.3 MCHC 33.9 RDW 14.7 H Plt Count 242 Seg Neutrophils % 66.3 Lymphocytes % 19.2 Monocytes % 10.6 Eosinophils % 3.1 Basophils % 0.8 Absolute Neutrophils 5.0 Absolute Lymphocytes 1.4 Absolute Monocytes 0.8 Absolute Eosinophils 0.2 Absolute Basophils 0.1 Carbonic Acid 1.33 HCO3/H2CO3 Ratio 22:1 ABG pH 7.45 ABG pCO2 44.1 ABG pO2 78.3 L ABG HCO3 29.8 H ABG O2 Saturation 96.0 ABG Base Excess 5.1 FiO2 40% Sodium 138.1 Potassium 3.9 Chloride 102 Carbon Dioxide 31 H Anion Gap 5 BUN 16 Creatinine 0.87 Est GFR ( Amer) > 60 Est GFR (Non-Af Amer) > 60 Glucose 116 H Calcium 8.8 Phosphorus 4.5 Magnesium 2.2 01/12/19 01/12/19 01/12/19 08:28 08:28 12:49 Creatine Kinase 34 L 30 L CK-MB (CK-2) 1.46 Troponin I < 0.012 NT-Pro-B Natriuret Pep 728 01/12/19 01/12/19 01/12/19 12:49 12:49 18:10 Creatine Kinase 27 L CK-MB (CK-2) Troponin I < 0.012 NT-Pro-B Natriuret Pep 859 01/12/19 01/13/19 01/13/19 18:10 00:26 00:26 Creatine Kinase 24 L CK-MB (CK-2) Troponin I < 0.012 < 0.012 NT-Pro-B Natriuret Pep 01/13/19 05:52 Creatine Kinase CK-MB (CK-2) Troponin I NT-Pro-B Natriuret Pep 287 Impressions: Head CT 01/12/19 00:00 IMPRESSION: NO ACUTE INTRACRANIAL FINDINGS. EVIDENCE OF ACUTE STROKE: NO. KUB X-Ray 01/12/19 11:51 IMPRESSION: NG tube tip overlies the body of the stomach, side port appears below the GE junction. Chest X-Ray 01/15/19 06:00 IMPRESSION: Continued bibasilar airspace disease likely scarring Assessment and Plan - Diagnosis (1) Acute and chronic respiratory failure with hypercapnia Is this a current diagnosis for this admission?: Yes Plan: 01/13/2019-the patient was admitted for acute on chronic respiratory failure with hypercapnia and required intubation. He is currently on SIMV with a rate of 16, tidal volume 500, PEEP of 5 and pressure support of 10. We will try and wean his FiO2. He has been stable overnight and we will initiate weaning. Because of his alcohol history he is on propofol with lorazepam and fentanyl as needed. He does require higher doses of medication. Will adjust medications based on his weaning. 01/14/2019-continue to attempt weaning. Wean from propofol as tolerated. He has not tolerated weaning very well as yet. 01/15/2019-continue weaning trials. The patient does tend to get tachypnea and we believe some of this is behavioral as we have seen this before with previous intubations. Continue to titrate propofol and attempt weaning as tolerated. 01/16/2019-once again he weaned on pressure support. It lasted several hours. He became tachypneic and needed to rest. He did not seem as agitated as yesterday. Continue weaning trials. (2) Altered mental status Qualifiers: Altered mental status type: coma Coma depth: [place] coma 3-8 Coma timing: in the field (EMT or ambulance) Qualified Code(s): R40.2431 - [place] coma scale score 3-8, in the field [EMT or ambulance] Is this a current diagnosis for this admission?: Yes Plan: 01/13/2019-altered mental status on admission was due to hypercapnia. He is currently intubated and sedated and will reassess as we wean him from the medications. 01/14/2019-unable to further assess at this time 01/15/2019-reexamine when patient is awake and alert 01/16/2019-as above (3) CHF (congestive heart failure) Qualifiers: Heart failure type: right-sided Heart failure chronicity: acute on chronic Qualified Code(s): I50.813 - Acute on chronic right heart failure Is this a current diagnosis for this admission?: Yes Plan: 01/13/2019-on admission there was no evidence of failure but the patient does have chronic systolic heart failure. His pressure appears to be stabilizing. We will monitor his intake and output and I will start him back on his furosemide and other antihypertensive medications based on his vital signs as well as intake and output. 01/14/2019-adjust diuretics to keep a negative fluid balance. 01/15/2019-patient continues to remain in a negative fluid balance. No overt evidence of failure at this time. 01/16/2019-no change in the treatment regimen. Continue to monitor intake and output. (4) HTN (hypertension) Qualifiers: Hypertension type: essential hypertension Qualified Code(s): I10 - Essential (primary) hypertension Is this a current diagnosis for this admission?: Yes Plan: 01/13/2019-the patient is on multiple antihypertensive medications. Currently with sedation his blood pressure is reasonably controlled and we will monitor closely. I will resume his antihypertensive medications based on the weaning of his sedation and pain medications as well as his vital signs. 01/14/2019-blood pressures have been quite stable without resuming medications for his hypertension. He is remaining in a negative fluid balance and so at this point I do not feel is necessary to add diuretic therapy. We will continue to monitor. 01/14/2019-good blood pressure control. Currently off of his chronic medications. Continue to monitor. It is likely his blood pressure will increase as the propofol is weaned and he weans from the ventilator. 01/16/2019-his blood pressures are starting to increase. I will resume his meto prolol, lisinopril and furosemide. (5) Alcohol abuse Is this a current diagnosis for this admission?: No Plan: 01/13/2019-the patient has a history of heavy alcohol use. He is currently on propofol and has fentanyl and lorazepam as needed. Will monitor for withdrawal. His serum alcohol level was normal on admission. Nursing states that per his his alcohol consumption has improved. 01/14/2019-when the patient weaned from propofol he gets quite tachypneic and seemingly agitated. This has happened in the past. Is currently on Zyprexa and Wellbutrin. Consider utilizing additional SSRI medications or other agents. He is on duloxetine at home but this cannot be crushed. 01/15/2019-no change in treatment plan at this time. 01/16/2019-continue same regimen (6) COPD (chronic obstructive pulmonary disease) Qualifiers: Emphysema type: unspecified Is this a current diagnosis for this admission?: Yes Plan: 01/13/2019-the patient is a tobacco user and continues despite being on 5 L of oxygen at home. He wears CPAP at night. We will continue inhaler therapies. Once he is weaned from the ventilator will resume his CPAP and inhaler regimen. He was intubated previously and each time it seems to be harder to get him off of the ventilator. Will wean as tolerated. 01/14/2019-continue current regimen. Continue weaning attempts as tolerated and once extubated resume his previous medication regimen 01/15/2019-we will continue current regimen while intubated and resume inhaler therapy post extubation 01/16/2019-no change (7) Obesity (BMI 30-39.9) Is this a current diagnosis for this admission?: Yes Plan: 01/13/2019-once the patient is off the ventilator we will place him on a cardiac diet. His obesity adds to his risk especially considering his hypertension and obstructive sleep apnea. (8) Tobacco abuse Is this a current diagnosis for this admission?: Yes Plan: 01/13/2019-we will order a nicotine patch as needed. - Time Time Spent with patient: 15-24 minutes Medications reviewed and adjusted accordingly: Yes
[2019-01-16] MEDS ORDERED: METOPROLOL TARTRATE 50 MG TABLET PO SCH (22:00)
[2019-01-16] MEDS: METOPROLOL TARTRATE 50 MG TABLET NG SCH (22:16)
[2019-01-17] MEDS: INSULIN REG, HUMAN 100 UNIT/ML 3 ML VIAL (PYX) SUBCUT SCH ×4 (00:35→17:47)
[2019-01-17] MEDS: PROPOFOL 1,000 MG/100 ML INFUS..BTL IV PRN ×4 (02:58→23:02)
[2019-01-17] MEDS: FENTANYL CITRATE INJ/PF 100 MCG/2 ML AMPUL IV PRN ×3 (03:29→14:22)
[2019-01-17 04:22] LABS: ABSOLUTE BASOPHILS # (AUTO) 0.1 10^3/uL (0.0-0.2); ABSOLUTE EOSINOPHILS # (AUTO) 0.3 10^3/uL (0.0-0.6); ABSOLUTE LYMPHOCYTES (AUTO) 1.6 10^3/uL (0.5-4.7); ABSOLUTE MONOCYTES (AUTO) 1.1 10^3/uL (0.1-1.4); ABSOLUTE NEUT (AUTO) 6.2 10^3/uL (1.7-8.2); BASOPHILS % (AUTO) 0.7 % (0-2); EOSINOPHILS % (AUTO) 3.2 % (0-6); HEMOGLOBIN 13.4 g/dL (13.5-17.0); LYMPHOCYTES % (AUTO) 17.4 % (13-45); MEAN CORPUSCULAR HGB CONC 33.5 g/dL (32.0-36.0); MEAN CORPUSCULAR VOLUME 96 fl (80-97); MONOCYTES % (AUTO) 11.5 % (3-13); PLATELET COUNT 270 10^3/uL (150-450); RED BLOOD COUNT 4.18 10^6/uL (4.35-5.55); RED CELL DISTRIBUTION WIDTH 14.5 % (11.5-14.0); SEGMENTED NEUTROPHILS % (AUTO) 67.2 % (42-78); TOTAL CELLS COUNTED % (AUTO) 100 %; WHITE BLOOD COUNT 9.2 10^3/uL (4.0-10.5)
[2019-01-17 04:34] LABS: ARTERIAL BLOOD BASE EXCESS 2.7 mmol/L; ARTERIAL BLOOD FIO2 40%; ARTERIAL BLOOD H2CO3 1.23 mmol/L (1.05-1.35); ARTERIAL BLOOD HCO3 27.1 mmol/L (20-24); ARTERIAL BLOOD O2 SATURATION 94.3 % (94-98); ARTERIAL BLOOD PCO2 40.9 mmHg (35-45); ARTERIAL BLOOD PH 7.44 (7.35-7.45); ARTERIAL BLOOD PO2 68.6 mmHg (80-100); ARTERIAL BLOOD TOTAL CO2 28.3 mmol/L (23-27)
[2019-01-17 04:47] LABS: ANION GAP 6 (5-19); BLOOD UREA NITROGEN 20 mg/dL (7-20); CARBON DIOXIDE 29 mmol/L (22-30); CHLORIDE 103 mmol/L (98-107); GLUCOSE 106 mg/dL (75-110); PHOSPHORUS 4.3 mg/dL (2.5-4.5); POTASSIUM 4.2 mmol/L (3.6-5.0)
[2019-01-17] MEDS: BUPROPION HCL 100 MG TABLET NG SCH ×3 (06:16→22:51)
--- NOTE | 2019-01-17 09:03 | RADIOLOGY REPORT (SQ) ---
EXAM DESCRIPTION: CHEST SINGLE VIEW COMPLETED DATE/TIME: 01/17/2019 6:54 am REASON FOR STUDY: pna/resp failure COMPARISON: 01/15/2019. EXAM PARAMETERS: NUMBER OF VIEWS: One view. TECHNIQUE: Single frontal radiographic view of the chest acquired. RADIATION DOSE: NA LIMITATIONS: None. FINDINGS: LUNGS AND PLEURA: A few linear densities in the left lung base. Otherwise clear. MEDIASTINUM AND HILAR STRUCTURES: No masses. Contour normal. HEART AND VASCULAR STRUCTURES: Heart normal in size. Normal vasculature. BONES: No acute findings. HARDWARE: Stable endotracheal tube and nasogastric tube. OTHER: No other significant finding. IMPRESSION: NO SIGNIFICANT INTERVAL CHANGE. TECHNICAL DOCUMENTATION: JOB ID: [id number] [employer]- All Rights Reserved Reading location - IP/workstation name: [email or web address]
[2019-01-17] MEDS: AMINO AC/PROTEIN HYDR/WHEY PRO 11 GM/45 ML PKT NG SCH ×3 (09:31→17:54)
[2019-01-17] MEDS: PANTOPRAZOLE SODIUM 40 MG VIAL IV SCH (09:31)
[2019-01-17] MEDS: OLANZAPINE 5 MG TABLET NG SCH ×2 (09:32→19:35)
[2019-01-17] MEDS: METOPROLOL TARTRATE 50 MG TABLET NG SCH ×2 (09:32→22:51)
[2019-01-17] MEDS: ALBUTEROL SULFATE 0.083% NEB 2.5 MG/3 ML AMPUL NEB PRN (09:32)
[2019-01-17] MEDS: POTASSIUM CHLORIDE 10 MEQ CAPSULE.ER PO SCH (09:33)
[2019-01-17] MEDS: ENOXAPARIN SODIUM INJ 40 MG/0.4 ML DISP.SYRIN SUBCUT SCH (09:38)
[2019-01-17] MEDS ORDERED: LISINOPRIL 10 MG TABLET NG SCH ×2 (10:00→22:00)
[2019-01-17] MEDS ORDERED: FUROSEMIDE 40 MG TABLET PO SCH (10:00)
[2019-01-17] MEDS ORDERED: FUROSEMIDE 40 MG TABLET NG SCH (10:00)
[2019-01-17] MEDS ORDERED: (PENDING PHARMACY ID) (Lisinopril [Zestril] 20 MG) NG SCH (10:00)
[2019-01-17] MEDS ORDERED: (PENDING PHARMACY ID) (Lisinopril [Zestril] 20 MG) PO SCH (10:00)
[2019-01-17] MEDS: LORAZEPAM INJ 2 MG/1 ML VIAL IV PRN ×3 (10:30→21:08)
--- NOTE | 2019-01-17 18:08 | PDOC PROGRESS REPORT ---
Subjective Progress Note for:: 01/17/19 Subjective:: Patient is resting comfortably this afternoon. Remains intubated and sedated. Reason For Visit: RESPIRATORY FAILURE Physical Exam Vital Signs: Temp Pulse Resp BP Pulse Ox 100.9 F H 73 31 H 106/72 97 01/17/19 12:00 01/17/19 12:09 01/17/19 12:09 01/17/19 12:09 01/17/19 12:09 Intake & Output 01/16/19 01/17/19 01/18/19 06:59 06:59 06:59 Intake Total 1010 969 19 Output Total 1385 1470 525 Balance -375 -501 -506 Weight 108.3 kg 108.9 kg 108.9 kg General appearance: PRESENT: no acute distress, other - Intubated and sedated Head exam: PRESENT: atraumatic, normocephalic Ear exam: PRESENT: normal external ear exam Mouth exam: PRESENT: other - Endotracheal tube in place Respiratory exam: PRESENT: clear to auscultation abi, symmetrical, unlabored. ABSENT: rales, rhonchi, tachypnea, wheezes Cardiovascular exam: PRESENT: RRR, +S1, +S2 GI/Abdominal exam: PRESENT: hypoactive bowel sounds, soft, other - Protuberant abdomen. ABSENT: tenderness Rectal exam: PRESENT: deferred Gentrourinary exam: PRESENT: indwelling catheter Extremities exam: PRESENT: other - Hand edema improved. ABSENT: pedal edema Musculoskeletal exam: PRESENT: normal inspection Neurological exam: ABSENT: awake Psychiatric exam: ABSENT: agitated Focused psych exam: ABSENT: restlessness Results Laboratory Results: 01/17/19 03:51 01/17/19 03:51 01/17/19 01/17/19 01/17/19 03:51 03:51 04:18 WBC 9.2 RBC 4.18 L Hgb 13.4 L Hct 40.0 MCV 96 MCH 32.0 MCHC 33.5 RDW 14.5 H Plt Count 270 Seg Neutrophils % 67.2 Lymphocytes % 17.4 Monocytes % 11.5 Eosinophils % 3.2 Basophils % 0.7 Absolute Neutrophils 6.2 Absolute Lymphocytes 1.6 Absolute Monocytes 1.1 Absolute Eosinophils 0.3 Absolute Basophils 0.1 Carbonic Acid 1.23 HCO3/H2CO3 Ratio 22:1 ABG pH 7.44 ABG pCO2 40.9 ABG pO2 68.6 L ABG HCO3 27.1 H ABG O2 Saturation 94.3 ABG Base Excess 2.7 FiO2 40% Sodium 137.8 Potassium 4.2 Chloride 103 Carbon Dioxide 29 Anion Gap 6 BUN 20 Creatinine 0.88 Est GFR ( Amer) > 60 Est GFR (Non-Af Amer) > 60 Glucose 106 Calcium 9.0 Phosphorus 4.3 Magnesium 2.2 01/12/19 09:40 Blood Blood Culture - Final NO GROWTH IN 5 DAYS 01/12/19 08:52 Blood Blood Culture - Final NO GROWTH IN 5 DAYS 01/12/19 01/12/19 01/12/19 08:28 08:28 12:49 Creatine Kinase 34 L 30 L CK-MB (CK-2) 1.46 Troponin I < 0.012 NT-Pro-B Natriuret Pep 728 01/12/19 01/12/19 01/12/19 12:49 12:49 18:10 Creatine Kinase 27 L CK-MB (CK-2) Troponin I < 0.012 NT-Pro-B Natriuret Pep 859 01/12/19 01/13/19 01/13/19 18:10 00:26 00:26 Creatine Kinase 24 L CK-MB (CK-2) Troponin I < 0.012 < 0.012 NT-Pro-B Natriuret Pep 01/13/19 05:52 Creatine Kinase CK-MB (CK-2) Troponin I NT-Pro-B Natriuret Pep 287 Impressions: Head CT 01/12/19 00:00 IMPRESSION: NO ACUTE INTRACRANIAL FINDINGS. EVIDENCE OF ACUTE STROKE: NO. KUB X-Ray 01/12/19 11:51 IMPRESSION: NG tube tip overlies the body of the stomach, side port appears below the GE junction. Chest X-Ray 01/17/19 06:00 IMPRESSION: NO SIGNIFICANT INTERVAL CHANGE. Assessment and Plan - Diagnosis (1) Acute and chronic respiratory failure with hypercapnia Is this a current diagnosis for this admission?: Yes Plan: 01/13/2019-the patient was admitted for acute on chronic respiratory failure with hypercapnia and required intubation. He is currently on SIMV with a rate of 16, tidal volume 500, PEEP of 5 and pressure support of 10. We will try and wean his FiO2. He has been stable overnight and we will initiate weaning. Because of his alcohol history he is on propofol with lorazepam and fentanyl as needed. He does require higher doses of medication. Will adjust medications based on his weaning. 01/14/2019-continue to attempt weaning. Wean from propofol as tolerated. He has not tolerated weaning very well as yet. 01/15/2019-continue weaning trials. The patient does tend to get tachypnea and we believe some of this is behavioral as we have seen this before with previous intubations. Continue to titrate propofol and attempt weaning as tolerated. 01/16/2019-once again he weaned on pressure support. It lasted several hours. He became tachypneic and needed to rest. He did not seem as agitated as yesterday. Continue weaning trials. 01/17/2019-the patient had a trial of pressure support. As we lighten the propofol he tends to get agitated. I discussed the patient with pulmonology. We would like to try and extubate the patient tomorrow. Continue resting on the vent tonight. (2) Altered mental status Qualifiers: Altered mental status type: coma Coma depth: [place] coma 3-8 Coma timing: in the field (EMT or ambulance) Qualified Code(s): R40.2431 - [place] coma scale score 3-8, in the field [EMT or ambulance] Is this a current diagnosis for this admission?: Yes Plan: 01/13/2019-altered mental status on admission was due to hypercapnia. He is currently intubated and sedated and will reassess as we wean him from the medications. 01/14/2019-unable to further assess at this time 01/15/2019-reexamine when patient is awake and alert 01/16/2019-as above 01/17/2019-other than agitation at low dose of propofol we are unable to fully assess his mental state at this time. (3) CHF (congestive heart failure) Qualifiers: Heart failure type: right-sided Heart failure chronicity: acute on chronic Qualified Code(s): I50.813 - Acute on chronic right heart failure Is this a current diagnosis for this admission?: Yes Plan: 01/13/2019-on admission there was no evidence of failure but the patient does have chronic systolic heart failure. His pressure appears to be stabilizing. We will monitor his intake and output and I will start him back on his furosemide and other antihypertensive medications based on his vital signs as well as intake and output. 01/14/2019-adjust diuretics to keep a negative fluid balance. 01/15/2019-patient continues to remain in a negative fluid balance. No overt evidence of failure at this time. 01/16/2019-no change in the treatment regimen. Continue to monitor intake and output. 01/17/2019-I resume the patient's furosemide. We will monitor his intake and output. He is also on beta-catarino and FANG inhibitor. He continues to have a negative fluid balance but it has been net negative in the 100s as opposed to the thousands. (4) HTN (hypertension) Qualifiers: Hypertension type: essential hypertension Qualified Code(s): I10 - Essential (primary) hypertension Is this a current diagnosis for this admission?: Yes Plan: 01/13/2019-the patient is on multiple antihypertensive medications. Currently with sedation his blood pressure is reasonably controlled and we will monitor closely. I will resume his antihypertensive medications based on the weaning of his sedation and pain medications as well as his vital signs. 01/14/2019-blood pressures have been quite stable without resuming medications for his hypertension. He is remaining in a negative fluid balance and so at this point I do not feel is necessary to add diuretic therapy. We will continue to monitor. 01/14/2019-good blood pressure control. Currently off of his chronic medicatio ns. Continue to monitor. It is likely his blood pressure will increase as the propofol is weaned and he weans from the ventilator. 01/16/2019-his blood pressures are starting to increase. I will resume his metoprolol, lisinopril and furosemide. We will monitor his pressure and place parameters on his medications. (5) Alcohol abuse Is this a current diagnosis for this admission?: No Plan: 01/13/2019-the patient has a history of heavy alcohol use. He is currently on propofol and has fentanyl and lorazepam as needed. Will monitor for withdrawal. His serum alcohol level was normal on admission. Nursing states that per his his alcohol consumption has improved. 01/14/2019-when the patient weaned from propofol he gets quite tachypneic and seemingly agitated. This has happened in the past. Is currently on Zyprexa and Wellbutrin. Consider utilizing additional SSRI medications or other agents. He is on duloxetine at home but this cannot be crushed. 01/15/2019-no change in treatment plan at this time. 01/16/2019-continue same regimen 01/17/2019-hopefully he can be extubated and begin oral medications then we could add back his duloxetine. This may help with some of the agitation. (6) COPD (chronic obstructive pulmonary disease) Qualifiers: Emphysema type: unspecified Is this a current diagnosis for this admission?: Yes Plan: 01/13/2019-the patient is a tobacco user and continues despite being on 5 L of oxygen at home. He wears CPAP at night. We will continue inhaler therapies. Once he is weaned from the ventilator will resume his CPAP and inhaler regimen. He was intubated previously and each time it seems to be harder to get him off of the ventilator. Will wean as tolerated. 01/14/2019-continue current regimen. Continue weaning attempts as tolerated and once extubated resume his previous medication regimen 01/15/2019-we will continue current regimen while intubated and resume inhaler therapy post extubation 01/16/2019-no change 01/17/2019-the patient will continue on as needed nebulizers. I have added back his Singulair. (7) Obesity (BMI 30-39.9) Is this a current diagnosis for this admission?: Yes Plan: 01/13/2019-once the patient is off the ventilator we will place him on a cardiac diet. His obesity adds to his risk especially considering his hypertension and obstructive sleep apnea. 01/17/2019-we will encourage weight loss post extubation. (8) Tobacco abuse Is this a current diagnosis for this admission?: Yes Plan: 01/13/2019-we will order a nicotine patch as needed. - Time Time Spent with patient: 15-24 minutes Medications reviewed and adjusted accordingly: Yes
--- NOTE | 2019-01-17 18:09 | Progress Note ---
Provider Note Provider Note: I was called by the ICU. The patient's systolic blood pressures dropped into the 80s. We will give him 1 L of fluid mindful of his history of congestive heart failure. In addition I will decrease some of his antihypertensive medications (and put different parameters on the remaining medications.
[2019-01-17] MEDS ORDERED: NORMAL SALINE 1000 ML 1,000 ML IV ONE ×2 (18:45→19:45)
[2019-01-18] MEDS: INSULIN REG, HUMAN 100 UNIT/ML 3 ML VIAL (PYX) SUBCUT SCH ×4 (00:34→17:41)
[2019-01-18] MEDS: FENTANYL CITRATE INJ/PF 100 MCG/2 ML AMPUL IV PRN ×2 (01:50→22:08)
[2019-01-18 04:20] LABS: ABSOLUTE BASOPHILS # (AUTO) 0.1 10^3/uL (0.0-0.2); ABSOLUTE EOSINOPHILS # (AUTO) 0.2 10^3/uL (0.0-0.6); ABSOLUTE LYMPHOCYTES (AUTO) 2.1 10^3/uL (0.5-4.7); ABSOLUTE MONOCYTES (AUTO) 1.5 10^3/uL (0.1-1.4); ABSOLUTE NEUT (AUTO) 6.3 10^3/uL (1.7-8.2); BASOPHILS % (AUTO) 0.8 % (0-2); EOSINOPHILS % (AUTO) 2.1 % (0-6); HEMATOCRIT 34.7 % (37.9-51.0); HEMOGLOBIN 11.7 g/dL (13.5-17.0); LYMPHOCYTES % (AUTO) 20.5 % (13-45); MEAN CORPUSCULAR HEMOGLOBIN 32.2 pg (27.0-33.4); MEAN CORPUSCULAR HGB CONC 33.7 g/dL (32.0-36.0); MEAN CORPUSCULAR VOLUME 96 fl (80-97); MONOCYTES % (AUTO) 14.4 % (3-13); PLATELET COUNT 242 10^3/uL (150-450); RED BLOOD COUNT 3.63 10^6/uL (4.35-5.55); RED CELL DISTRIBUTION WIDTH 14.5 % (11.5-14.0); SEGMENTED NEUTROPHILS % (AUTO) 62.2 % (42-78); TOTAL CELLS COUNTED % (AUTO) 100 %; WHITE BLOOD COUNT 10.2 10^3/uL (4.0-10.5)
[2019-01-18 04:38] LABS: ANION GAP 7 (5-19); BLOOD UREA NITROGEN 31 mg/dL (7-20); CALCIUM 8.6 mg/dL (8.4-10.2); CARBON DIOXIDE 25 mmol/L (22-30); CHLORIDE 106 mmol/L (98-107); GLUCOSE 93 mg/dL (75-110); POTASSIUM 4.3 mmol/L (3.6-5.0)
[2019-01-18] MEDS: LORAZEPAM INJ 2 MG/1 ML VIAL IV PRN ×4 (04:51→17:41)
[2019-01-18 05:04] LABS: ARTERIAL BLOOD BASE EXCESS 1.9 mmol/L; ARTERIAL BLOOD H2CO3 1.37 mmol/L (1.05-1.35); ARTERIAL BLOOD HCO3 27.2 mmol/L (20-24); ARTERIAL BLOOD O2 SATURATION 97.6 % (94-98); ARTERIAL BLOOD PCO2 45.5 mmHg (35-45); ARTERIAL BLOOD PO2 101.2 mmHg (80-100); ARTERIAL BLOOD TOTAL CO2 28.6 mmol/L (23-27)
[2019-01-18 05:05] LABS: ARTERIAL BLOOD FIO2 45%
[2019-01-18] MEDS ORDERED: NORMAL SALINE 1000 ML 1,000 ML IV ONE (05:15)
[2019-01-18] MEDS: BUPROPION HCL 100 MG TABLET NG SCH ×2 (05:37→14:41)
[2019-01-18] MEDS: PROPOFOL 1,000 MG/100 ML INFUS..BTL IV PRN ×2 (07:42→15:39)
[2019-01-18] MEDS: ALBUTEROL SULFATE 0.083% NEB 2.5 MG/3 ML AMPUL NEB PRN (09:15)
[2019-01-18] MEDS: ENOXAPARIN SODIUM INJ 40 MG/0.4 ML DISP.SYRIN SUBCUT SCH (09:36)
[2019-01-18] MEDS: POTASSIUM CHLORIDE 10 MEQ CAPSULE.ER PO SCH (09:36)
[2019-01-18] MEDS: OLANZAPINE 5 MG TABLET NG SCH ×2 (09:37→17:41)
[2019-01-18] MEDS: MONTELUKAST SODIUM 10 MG TABLET NG SCH (09:37)
[2019-01-18] MEDS: FUROSEMIDE 20 MG TABLET NG SCH (09:37)
[2019-01-18] MEDS: LISINOPRIL 10 MG TABLET NG SCH (09:38)
[2019-01-18] MEDS: METOPROLOL TARTRATE 50 MG TABLET NG SCH (09:38)
[2019-01-18] MEDS ORDERED: MONTELUKAST SODIUM 10 MG TABLET PO SCH (10:00)
[2019-01-18] MEDS: AMINO AC/PROTEIN HYDR/WHEY PRO 11 GM/45 ML PKT NG SCH ×3 (11:05→17:41)
--- NOTE | 2019-01-18 16:39 | PDOC PROGRESS REPORT ---
Subjective Progress Note for:: 01/18/19 Subjective:: Patient was extubated earlier today. He is very restless and appears somewhat agitated. It is possible that overstimulation from visitors is causing this. Reason For Visit: RESPIRATORY FAILURE Physical Exam Vital Signs: Temp Pulse Resp BP Pulse Ox 99.1 F 85 18 115/65 96 01/18/19 12:00 01/18/19 14:00 01/18/19 14:28 01/18/19 14:28 01/18/19 14:28 Intake & Output 01/17/19 01/18/19 01/19/19 06:59 06:59 06:59 Intake Total 995 050 7498 Output Total 1470 1290 975 Balance -501 662 2125 Weight 108.9 kg 106.6 kg General appearance: PRESENT: mild distress, obese, other - On BiPAP Head exam: PRESENT: atraumatic, normocephalic Ear exam: PRESENT: normal external ear exam Mouth exam: PRESENT: other - Endotracheal tube has been removed Respiratory exam: PRESENT: clear to auscultation abi - Coarse breath sounds, symmetrical, tachypnea. ABSENT: rales, rhonchi, wheezes Cardiovascular exam: PRESENT: RRR, +S1, +S2 - Irregularly irregular. Paired beats. GI/Abdominal exam: PRESENT: distended - Protuberant abdomen, hypoactive bowel sounds, soft. ABSENT: tenderness Rectal exam: PRESENT: deferred Gentrourinary exam: PRESENT: indwelling catheter Extremities exam: ABSENT: pedal edema, tenderness Musculoskeletal exam: PRESENT: normal inspection Neurological exam: PRESENT: awake - Appears to be awake as he spontaneously opens his eyes briefly, other - Unable to adequately assess orientation. ABSENT: alert Psychiatric exam: PRESENT: agitated - He is somewhat agitated and restless Focused psych exam: PRESENT: restlessness Results Laboratory Results: 01/18/19 04:02 01/18/19 04:02 01/18/19 01/18/19 01/18/19 04:02 04:02 04:18 WBC 10.2 RBC 3.63 L Hgb 11.7 L Hct 34.7 L MCV 96 MCH 32.2 MCHC 33.7 RDW 14.5 H Plt Count 242 Seg Neutrophils % 62.2 Lymphocytes % 20.5 Monocytes % 14.4 H Eosinophils % 2.1 Basophils % 0.8 Absolute Neutrophils 6.3 Absolute Lymphocytes 2.1 Absolute Monocytes 1.5 H Absolute Eosinophils 0.2 Absolute Basophils 0.1 Carbonic Acid 1.37 H HCO3/H2CO3 Ratio 19:1 ABG pH 7.40 ABG pCO2 45.5 H ABG pO2 101.2 H ABG HCO3 27.2 H ABG O2 Saturation 97.6 ABG Base Excess 1.9 FiO2 45% Sodium 138.2 Potassium 4.3 Chloride 106 Carbon Dioxide 25 Anion Gap 7 BUN 31 H Creatinine 1.11 Est GFR ( Amer) > 60 Est GFR (Non-Af Amer) > 60 Glucose 93 Calcium 8.6 Phosphorus 5.0 H Magnesium 2.2 01/12/19 01/12/19 01/12/19 08:28 08:28 12:49 Creatine Kinase 34 L 30 L CK-MB (CK-2) 1.46 Troponin I < 0.012 NT-Pro-B Natriuret Pep 728 01/12/19 01/12/19 01/12/19 12:49 12:49 18:10 Creatine Kinase 27 L CK-MB (CK-2) Troponin I < 0.012 NT-Pro-B Natriuret Pep 859 01/12/19 01/13/19 01/13/19 18:10 00:26 00:26 Creatine Kinase 24 L CK-MB (CK-2) Troponin I < 0.012 < 0.012 NT-Pro-B Natriuret Pep 01/13/19 05:52 Creatine Kinase CK-MB (CK-2) Troponin I NT-Pro-B Natriuret Pep 287 Impressions: Head CT 01/12/19 00:00 IMPRESSION: NO ACUTE INTRACRANIAL FINDINGS. EVIDENCE OF ACUTE STROKE: NO. KUB X-Ray 01/12/19 11:51 IMPRESSION: NG tube tip overlies the body of the stomach, side port appears below the GE junction. Chest X-Ray 01/17/19 06:00 IMPRESSION: NO SIGNIFICANT INTERVAL CHANGE. Assessment and Plan - Diagnosis (1) Acute and chronic respiratory failure with hypercapnia Is this a current diagnosis for this admission?: Yes Plan: 01/13/2019-the patient was admitted for acute on chronic respiratory failure with hypercapnia and required intubation. He is currently on SIMV with a rate of 16, tidal volume 500, PEEP of 5 and pressure support of 10. We will try and wean his FiO2. He has been stable overnight and we will initiate weaning. Because of his alcohol history he is on propofol with lorazepam and fentanyl as needed. He does require higher doses of medication. Will adjust medications based on his weaning. 01/14/2019-continue to attempt weaning. Wean from propofol as tolerated. He has not tolerated weaning very well as yet. 01/15/2019-continue weaning trials. The patient does tend to get tachypnea and we believe some of this is behavioral as we have seen this before with previous intubations. Continue to titrate propofol and attempt weaning as tolerated. 01/16/2019-once again he weaned on pressure support. It lasted several hours. He became tachypneic and needed to rest. He did not seem as agitated as yesterday. Continue weaning trials. 01/17/2019-the patient had a trial of pressure support. As we lighten the propofol he tends to get agitated. I discussed the patient with pulmonology. We would like to try and extubate the patient tomorrow. Continue resting on the vent tonight. 01/18/2019-the patient is extubated and on BiPAP. He is a bit agitated but this could be due to overstimulation. We may need to have visitors limited to windows of time. We will continue him on BiPAP and try and wean the BiPAP as tolerated. (2) Altered mental status Qualifiers: Altered mental status type: coma Coma depth: [place] coma 3-8 Coma timing: in the field (EMT or ambulance) Qualified Code(s): R40.2431 - [place] coma scale score 3-8, in the field [EMT or ambulance] Is this a current diagnosis for this admission?: Yes Plan: 01/13/2019-altered mental status on admission was due to hypercapnia. He is currently intubated and sedated and will reassess as we wean him from the medications. 01/14/2019-unable to further assess at this time 01/15/2019-reexamine when patient is awake and alert 01/16/2019-as above 01/17/2019-other than agitation at low dose of propofol we are unable to fully assess his mental state at this time. 01/18/2019-now that he is extubated we can hopefully carry on conversation and evaluate his mental state. (3) CHF (congestive heart failure) Qualifiers: Heart failure type: right-sided Heart failure chronicity: acute on chronic Qualified Code(s): I50.813 - Acute on chronic right heart failure Is this a current diagnosis for this admission?: Yes Plan: 01/13/2019-on admission there was no evidence of failure but the patient does have chronic systolic heart failure. His pressure appears to be stabilizing. We will monitor his intake and output and I will start him back on his furosemide and other antihypertensive medications based on his vital signs as well as intake and output. 01/14/2019-adjust diuretics to keep a negative fluid balance. 01/15/2019-patient continues to remain in a negative fluid balance. No overt evidence of failure at this time. 01/16/2019-no change in the treatment regimen. Continue to monitor intake and output. 01/17/2019-I resume the patient's furosemide. We will monitor his intake and output. He is also on beta-catarino and FANG inhibitor. He continues to have a negative fluid balance but it has been net negative in the 100s as opposed to the thousands. 01/18/2019-the patient is on lisinopril, metoprolol and furosemide. He is maintaining a negative fluid balance. We will continue to monitor. (4) HTN (hypertension) Qualifiers: Hypertension type: essential hypertension Qualified Code(s): I10 - Essential (primary) hypertension Is this a current diagnosis for this admission?: Yes Plan: 01/13/2019-the patient is on multiple antihypertensive medications. Currently with sedation his blood pressure is reasonably controlled and we will monitor closely. I will resume his antihypertensive medications based on the weaning of his sedation and pain medications as well as his vital signs. 01/14/2019-blood pressures have been quite stable without resuming medications for his hypertension. He is remaining in a negative fluid balance and so at this point I do not feel is necessary to add diuretic therapy. We will continue to monitor. 01/14/2019-good blood pressure control. Currently off of his chronic medications. Continue to monitor. It is likely his blood pressure will increase as the propofol is weaned and he weans from the ventilator. 01/16/2019-his blood pressures are starting to increase. I will resume his metoprolol, lisinopril and furosemide. We will monitor his pressure and place parameters on his medications. 01/18/2019-the patient's antihypertensives needed to be scaled back as he was having hypotension. We need to keep the systolic blood pressure greater than 110 to maintain good perfusion to the kidneys. We will adjust the medications based on his vital signs. (5) Alcohol abuse Is this a current diagnosis for this admission?: No Plan: 01/13/2019-the patient has a history of heavy alcohol use. He is currently on propofol and has fentanyl and lorazepam as needed. Will monitor for withdrawal. His serum alcohol level was normal on admission. Nursing states that per his his alcohol consumption has improved. 01/14/2019-when the patient weaned from propofol he gets quite tachypneic and seemingly agitated. This has happened in the past. Is currently on Zyprexa and Wellbutrin. Consider utilizing additional SSRI medications or other agents. He is on duloxetine at home but this cannot be crushed. 01/15/2019-no change in treatment plan at this time. 01/16/2019-continue same regimen 01/17/2019-hopefully he can be extubated and begin oral medications then we could add back his duloxetine. This may help with some of the agitation. 01/18/2019-consider psych consult when he is awake and able to converse. We will be able to start his duloxetine back as he starts oral intake. (6) COPD (chronic obstructive pulmonary disease) Qualifiers: Emphysema type: unspecified Is this a current diagnosis for this admission?: Yes Plan: 01/13/2019-the patient is a tobacco user and continues despite being on 5 L of oxygen at home. He wears CPAP at night. We will continue inhaler therapies. Once he is weaned from the ventilator will resume his CPAP and inhaler regimen. He was intubated previously and each time it seems to be harder to get him off of the ventilator. Will wean as tolerated. 01/14/2019-continue current regimen. Continue weaning attempts as tolerated and once extubated resume his previous medication regimen 01/15/2019-we will continue current regimen while intubated and resume inhaler therapy post extubation 01/16/2019-no change 01/17/2019-the patient will continue on as needed nebulizers. I have added back his Singulair. 01/18/2019-continue nebulizers. He is back on Singulair. Unfortunately he chooses not to stop smoking. We will try to integrate his home program now that he is extubated. (7) Obesity (BMI 30-39.9) Is this a current diagnosis for this admission?: Yes Plan: 01/13/2019-once the patient is off the ventilator we will place him on a cardiac diet. His obesity adds to his risk especially considering his hypertension and obstructive sleep apnea. 01/17/2019-we will encourage weight loss post extubation. 01/18/2019-significant comorbidity considering his other medical illnesses. Will encourage weight loss. (8) Tobacco abuse Is this a current diagnosis for this admission?: Yes Plan: 01/13/2019-we will order a nicotine patch as needed. 01/18/2019-nicotine patch available. Will try to encourage decreasing tobacco use. - Time Time Spent with patient: 15-24 minutes Medications reviewed and adjusted accordingly: Yes
[2019-01-19] MEDS: METOPROLOL TARTRATE 50 MG TABLET NG SCH ×3 (00:21→22:20)
[2019-01-19] MEDS: LISINOPRIL 10 MG TABLET NG SCH ×3 (00:22→22:20)
[2019-01-19] MEDS: INSULIN REG, HUMAN 100 UNIT/ML 3 ML VIAL (PYX) SUBCUT SCH ×4 (00:30→19:57)
[2019-01-19] MEDS: BUPROPION HCL 100 MG TABLET NG SCH ×4 (00:38→22:21)
[2019-01-19] MEDS: LORAZEPAM INJ 2 MG/1 ML VIAL IV PRN ×4 (03:17→20:29)
[2019-01-19] MEDS: PROPOFOL 1,000 MG/100 ML INFUS..BTL IV PRN (03:17)
[2019-01-19 03:57] LABS: ARTERIAL BLOOD H2CO3 1.38 mmol/L (1.05-1.35); ARTERIAL BLOOD HCO3 27.4 mmol/L (20-24); ARTERIAL BLOOD PCO2 45.9 mmHg (35-45); ARTERIAL BLOOD PH 7.39 (7.35-7.45); ARTERIAL BLOOD PO2 70.5 mmHg (80-100); ARTERIAL BLOOD TOTAL CO2 28.8 mmol/L (23-27)
[2019-01-19 03:58] LABS: ARTERIAL BLOOD FIO2 35%
[2019-01-19] MEDS: FENTANYL CITRATE INJ/PF 100 MCG/2 ML AMPUL IV PRN (04:19)
[2019-01-19 04:23] LABS: ABSOLUTE BASOPHILS # (AUTO) 0.1 10^3/uL (0.0-0.2); ABSOLUTE EOSINOPHILS # (AUTO) 0.4 10^3/uL (0.0-0.6); ABSOLUTE MONOCYTES (AUTO) 1.3 10^3/uL (0.1-1.4); ABSOLUTE NEUT (AUTO) 6.6 10^3/uL (1.7-8.2); BASOPHILS % (AUTO) 0.7 % (0-2); EOSINOPHILS % (AUTO) 3.5 % (0-6); HEMATOCRIT 35.8 % (37.9-51.0); HEMOGLOBIN 11.9 g/dL (13.5-17.0); LYMPHOCYTES % (AUTO) 19.5 % (13-45); MEAN CORPUSCULAR HEMOGLOBIN 31.8 pg (27.0-33.4); MEAN CORPUSCULAR HGB CONC 33.3 g/dL (32.0-36.0); MEAN CORPUSCULAR VOLUME 95 fl (80-97); MONOCYTES % (AUTO) 12.2 % (3-13); PLATELET COUNT 256 10^3/uL (150-450); RED BLOOD COUNT 3.76 10^6/uL (4.35-5.55); RED CELL DISTRIBUTION WIDTH 14.1 % (11.5-14.0); SEGMENTED NEUTROPHILS % (AUTO) 64.1 % (42-78); TOTAL CELLS COUNTED % (AUTO) 100 %; WHITE BLOOD COUNT 10.4 10^3/uL (4.0-10.5)
[2019-01-19 04:48] LABS: ANION GAP 6 (5-19); BLOOD UREA NITROGEN 21 mg/dL (7-20); CALCIUM 9.1 mg/dL (8.4-10.2); CARBON DIOXIDE 28 mmol/L (22-30); CHLORIDE 106 mmol/L (98-107); GLUCOSE 98 mg/dL (75-110); PHOSPHORUS 4.1 mg/dL (2.5-4.5); POTASSIUM 4.1 mmol/L (3.6-5.0)
--- NOTE | 2019-01-19 09:14 | RADIOLOGY REPORT (SQ) ---
EXAM DESCRIPTION: CHEST SINGLE VIEW COMPLETED DATE/TIME: 01/19/2019 6:48 am REASON FOR STUDY: copd COMPARISON: 01/17/2019 NUMBER OF VIEWS: One view. TECHNIQUE: Single frontal radiographic image of the chest acquired. LIMITATIONS: None. FINDINGS: LUNGS AND PLEURA: Stable appearance. MEDIASTINUM AND HILAR STRUCTURES: Stable heart size and mediastinal structures. HEART AND VASCULAR STRUCTURES: Stable appearance. SUPPORT DEVICES: Appropriate location without change. BONES: No acute findings. OTHER: No other significant finding. IMPRESSION: STABLE APPEARANCE OF THE CHEST. SUPPORT DEVICES UNCHANGED. TECHNICAL DOCUMENTATION: JOB ID: [id number] [employer]- All Rights Reserved Reading location - IP/workstation name: [email or web address]
[2019-01-19] MEDS: ENOXAPARIN SODIUM INJ 40 MG/0.4 ML DISP.SYRIN SUBCUT SCH (10:04)
[2019-01-19] MEDS: POTASSIUM CHLORIDE 10 MEQ CAPSULE.ER PO SCH (10:04)
[2019-01-19] MEDS: OLANZAPINE 5 MG TABLET NG SCH ×2 (10:04→17:07)
[2019-01-19] MEDS: FUROSEMIDE 20 MG TABLET NG SCH (10:04)
[2019-01-19] MEDS: AMINO AC/PROTEIN HYDR/WHEY PRO 11 GM/45 ML PKT NG SCH ×3 (10:04→17:07)
[2019-01-19] MEDS: MONTELUKAST SODIUM 10 MG TABLET NG SCH (10:05)
[2019-01-19 13:04] LABS: ARTERIAL BLOOD BASE EXCESS 2.9 mmol/L; ARTERIAL BLOOD FIO2 35%; ARTERIAL BLOOD H2CO3 1.71 mmol/L (1.05-1.35); ARTERIAL BLOOD HCO3 29.9 mmol/L (20-24); ARTERIAL BLOOD O2 SATURATION 94.7 % (94-98); ARTERIAL BLOOD PCO2 56.9 mmHg (35-45); ARTERIAL BLOOD PH 7.34 (7.35-7.45); ARTERIAL BLOOD PO2 78.5 mmHg (80-100); ARTERIAL BLOOD TOTAL CO2 31.7 mmol/L (23-27)
[2019-01-19 15:42] LABS: ARTERIAL BLOOD H2CO3 1.38 mmol/L (1.05-1.35); ARTERIAL BLOOD HCO3 27.4 mmol/L (20-24); ARTERIAL BLOOD O2 SATURATION 97.1 % (94-98); ARTERIAL BLOOD PH 7.39 (7.35-7.45); ARTERIAL BLOOD PO2 94.4 mmHg (80-100); ARTERIAL BLOOD TOTAL CO2 28.8 mmol/L (23-27)
[2019-01-19 15:44] LABS: ARTERIAL BLOOD FIO2 35%
[2019-01-19] MEDS: CHLORPROMAZINE HCL INJ 25 MG/1 ML AMPULE IV PRN (20:29)
--- NOTE | 2019-01-19 22:29 | PDOC PROGRESS REPORT ---
Subjective Progress Note for:: 01/19/19 Subjective:: Patient extubated this morning. He has been does have significant agitation. Reason For Visit: RESPIRATORY FAILURE Physical Exam Vital Signs: Temp Pulse Resp BP Pulse Ox 99.3 F 77 22 H 119/75 94 01/19/19 08:00 01/19/19 10:00 01/19/19 10:29 01/19/19 10:29 01/19/19 10:29 Intake & Output 01/18/19 01/19/19 01/20/19 06:59 06:59 06:59 Intake Total 628 3940 74 Output Total 1290 2530 155 Balance -662 1410 -81 Weight 106.6 kg 105 kg General appearance: PRESENT: no acute distress, cooperative, well-developed Head exam: PRESENT: atraumatic, normocephalic Eye exam: PRESENT: conjunctiva pink. ABSENT: scleral icterus Ear exam: PRESENT: normal external ear exam Mouth exam: PRESENT: dry mucosa, tongue midline, other - Extubated Respiratory exam: PRESENT: clear to auscultation abi, symmetrical, unlabored. ABSENT: rales, rhonchi, tachypnea, wheezes Cardiovascular exam: PRESENT: RRR, +S1, +S2 GI/Abdominal exam: PRESENT: hypoactive bowel sounds, soft. ABSENT: distended, tenderness Rectal exam: PRESENT: deferred Gentrourinary exam: PRESENT: indwelling catheter Extremities exam: ABSENT: joint swelling, pedal edema Musculoskeletal exam: PRESENT: normal inspection Neurological exam: PRESENT: alert, awake, oriented to person, oriented to place, oriented to situation, CN II-XII grossly intact Psychiatric exam: PRESENT: flat affect. ABSENT: agitated, anxious Focused psych exam: ABSENT: delusional, restlessness Results Laboratory Results: 01/19/19 03:45 01/19/19 03:45 01/19/19 01/19/19 01/19/19 03:36 03:45 03:45 WBC 10.4 RBC 3.76 L Hgb 11.9 L Hct 35.8 L MCV 95 MCH 31.8 MCHC 33.3 RDW 14.1 H Plt Count 256 Seg Neutrophils % 64.1 Lymphocytes % 19.5 Monocytes % 12.2 Eosinophils % 3.5 Basophils % 0.7 Absolute Neutrophils 6.6 Absolute Lymphocytes 2.0 Absolute Monocytes 1.3 Absolute Eosinophils 0.4 Absolute Basophils 0.1 Carbonic Acid 1.38 H HCO3/H2CO3 Ratio 19:1 ABG pH 7.39 ABG pCO2 45.9 H ABG pO2 70.5 L ABG HCO3 27.4 H ABG O2 Saturation 94.0 ABG Base Excess 2.0 FiO2 35% Sodium 140.1 Potassium 4.1 Chloride 106 Carbon Dioxide 28 Anion Gap 6 BUN 21 H Creatinine 0.86 Est GFR ( Amer) > 60 Est GFR (Non-Af Amer) > 60 Glucose 98 Calcium 9.1 Phosphorus 4.1 Magnesium 2.1 01/12/19 01/12/19 01/12/19 08:28 08:28 12:49 Creatine Kinase 34 L 30 L CK-MB (CK-2) 1.46 Troponin I < 0.012 NT-Pro-B Natriuret Pep 728 01/12/19 01/12/19 01/12/19 12:49 12:49 18:10 Creatine Kinase 27 L CK-MB (CK-2) Troponin I < 0.012 NT-Pro-B Natriuret Pep 859 01/12/19 01/13/19 01/13/19 18:10 00:26 00:26 Creatine Kinase 24 L CK-MB (CK-2) Troponin I < 0.012 < 0.012 NT-Pro-B Natriuret Pep 01/13/19 05:52 Creatine Kinase CK-MB (CK-2) Troponin I NT-Pro-B Natriuret Pep 287 Impressions: Head CT 01/12/19 00:00 IMPRESSION: NO ACUTE INTRACRANIAL FINDINGS. EVIDENCE OF ACUTE STROKE: NO. KUB X-Ray 01/12/19 11:51 IMPRESSION: NG tube tip overlies the body of the stomach, side port appears below the GE junction. Chest X-Ray 01/19/19 06:00 IMPRESSION: STABLE APPEARANCE OF THE CHEST. SUPPORT DEVICES UNCHANGED. Assessment and Plan - Diagnosis (1) Acute and chronic respiratory failure with hypercapnia Is this a current diagnosis for this admission?: Yes Plan: 01/13/2019-the patient was admitted for acute on chronic respiratory failure with hypercapnia and required intubation. He is currently on SIMV with a rate of 16, tidal volume 500, PEEP of 5 and pressure support of 10. We will try and wean his FiO2. He has been stable overnight and we will initiate weaning. Because of his alcohol history he is on propofol with lorazepam and fentanyl as needed. He does require higher doses of medication. Will adjust medications based on his weaning. 01/14/2019-continue to attempt weaning. Wean from propofol as tolerated. He has not tolerated weaning very well as yet. 01/15/2019-continue weaning trials. The patient does tend to get tachypnea and we believe some of this is behavioral as we have seen this before with previous intubations. Continue to titrate propofol and attempt weaning as tolerated. 01/16/2019-once again he weaned on pressure support. It lasted several hours. He became tachypneic and needed to rest. He did not seem as agitated as yesterday. Continue weaning trials. 01/17/2019-the patient had a trial of pressure support. As we lighten the propofol he tends to get agitated. I discussed the patient with pulmonology. We would like to try and extubate the patient tomorrow. Continue resting on the vent tonight. 01/18/2019-the patient is extubated and on BiPAP. He is a bit agitated but this could be due to overstimulation. We may need to have visitors limited to windows of time. We will continue him on BiPAP and try and wean the BiPAP as tolerated. 01/19/2019-the patient struggled wearing his BiPAP today. He tries to pull the mask off. He was placed back in restraints. On nasal cannula his PCO2 continues to rise. We are trying to avoid reintubation but if he does not maintain reasonable PCO2 and pH will be required. If this takes place then he will likely need tracheostomy and long-term vent weaning. (2) Altered mental status Qualifiers: Altered mental status type: coma Coma depth: [place] coma 3-8 Coma timing: in the field (EMT or ambulance) Qualified Code(s): R40.2431 - [place] coma scale score 3-8, in the field [EMT or ambulance] Is this a current diagnosis for this admission?: Yes Plan: 01/13/2019-altered mental status on admission was due to hypercapnia. He is currently intubated and sedated and will reassess as we wean him from the medications. 01/14/2019-unable to further assess at this time 01/15/2019-reexamine when patient is awake and alert 01/16/2019-as above 01/17/2019-other than agitation at low dose of propofol we are unable to fully assess his mental state at this time. 01/18/2019-now that he is extubated we can hopefully carry on conversation and evaluate his mental state. 01/19/2019-there were windows of clarity during the day. Unfortunately when off of BiPAP his PCO2 increases significantly. Currently any altered mental status is due to hypercapnia. (3) CHF (congestive heart failure) Qualifiers: Heart failure type: right-sided Heart failure chronicity: acute on chronic Qualified Code(s): I50.813 - Acute on chronic right heart failure Is this a current diagnosis for this admission?: Yes Plan: 01/13/2019-on admission there was no evidence of failure but the patient does have chronic systolic heart failure. His pressure appears to be stabilizing. We will monitor his intake and output and I will start him back on his furosemide and other antihypertensive medications based on his vital signs as well as intake and output. 01/14/2019-adjust diuretics to keep a negative fluid balance. 01/15/2019-patient continues to remain in a negative fluid balance. No overt evidence of failure at this time. 01/16/2019-no change in the treatment regimen. Continue to monitor intake and output. 01/17/2019-I resume the patient's furosemide. We will monitor his intake and out put. He is also on beta-catarino and FANG inhibitor. He continues to have a negative fluid balance but it has been net negative in the 100s as opposed to the thousands. 01/18/2019-the patient is on lisinopril, metoprolol and furosemide. He is maintaining a negative fluid balance. We will continue to monitor. 01/19/2019-continue current regimen. (4) HTN (hypertension) Qualifiers: Hypertension type: essential hypertension Qualified Code(s): I10 - Essential (primary) hypertension Is this a current diagnosis for this admission?: Yes Plan: 01/13/2019-the patient is on multiple antihypertensive medications. Currently with sedation his blood pressure is reasonably controlled and we will monitor closely. I will resume his antihypertensive medications based on the weaning of his sedation and pain medications as well as his vital signs. 01/14/2019-blood pressures have been quite stable without resuming medications for his hypertension. He is remaining in a negative fluid balance and so at this point I do not feel is necessary to add diuretic therapy. We will continue to monitor. 01/14/2019-good blood pressure control. Currently off of his chronic medications. Continue to monitor. It is likely his blood pressure will increase as the propofol is weaned and he weans from the ventilator. 01/16/2019-his blood pressures are starting to increase. I will resume his metoprolol, lisinopril and furosemide. We will monitor his pressure and place parameters on his medications. 01/18/2019-the patient's antihypertensives needed to be scaled back as he was having hypotension. We need to keep the systolic blood pressure greater than 110 to maintain good perfusion to the kidneys. We will adjust the medications based on his vital signs. 01/19/2019-continue current regimen. Blood pressure still are variable but acceptable. (5) Alcohol abuse Is this a current diagnosis for this admission?: No Plan: 01/13/2019-the patient has a history of heavy alcohol use. He is currently on propofol and has fentanyl and lorazepam as needed. Will monitor for withdrawal. His serum alcohol level was normal on admission. Nursing states that per his his alcohol consumption has improved. 01/14/2019-when the patient weaned from propofol he gets quite tachypneic and seemingly agitated. This has happened in the past. Is currently on Zyprexa and Wellbutrin. Consider utilizing additional SSRI medications or other agents. He is on duloxetine at home but this cannot be crushed. 01/15/2019-no change in treatment plan at this time. 01/16/2019-continue same regimen 01/17/2019-hopefully he can be extubated and begin oral medications then we could add back his duloxetine. This may help with some of the agitation. 01/18/2019-consider psych consult when he is awake and able to converse. We will be able to start his duloxetine back as he starts oral intake. 01/19/2019-the patient is clearly passed any window of withdrawal. Program such as AA might be considered post discharge. (6) COPD (chronic obstructive pulmonary disease) Qualifiers: Emphysema type: unspecified Is this a current diagnosis for this admission?: Yes Plan: 01/13/2019-the patient is a tobacco user and continues despite being on 5 L of oxygen at home. He wears CPAP at night. We will continue inhaler therapies. Once he is weaned from the ventilator will resume his CPAP and inhaler regimen. He was intubated previously and each time it seems to be harder to get him off of the ventilator. Will wean as tolerated. 01/14/2019-continue current regimen. Continue weaning attempts as tolerated and once extubated resume his previous medication regimen 01/15/2019-we will continue current regimen while intubated and resume inhaler therapy post extubation 01/16/2019-no change 01/17/2019-the patient will continue on as needed nebulizers. I have added back his Singulair. 01/18/2019-continue nebulizers. He is back on Singulair. Unfortunately he chooses not to stop smoking. We will try to integrate his home program now that he is extubated. 01/19/2019-continue nebulizers at this point. We are not sure if he will remain extubated. If he does not require reintubation then gradually changed to an outpatient regimen. (7) Obesity (BMI 30-39.9) Is this a current diagnosis for this admission?: Yes Plan: 01/13/2019-once the patient is off the ventilator we will place him on a cardiac diet. His obesity adds to his risk especially considering his hypertension and obstructive sleep apnea. 01/17/2019-we will encourage weight loss post extubation. 01/18/2019-significant comorbidity considering his other medical illnesses. Will encourage weight loss. 01/19/2019-as above (8) Tobacco abuse Is this a current diagnosis for this admission?: Yes Plan: 01/13/2019-we will order a nicotine patch as needed. 01/18/2019-nicotine patch available. Will try to encourage decreasing tobacco use. 01/19/2019-as above - Time Time Spent with patient: 35 or more minutes Medications reviewed and adjusted accordingly: Yes
[2019-01-20] MEDS: INSULIN REG, HUMAN 100 UNIT/ML 3 ML VIAL (PYX) SUBCUT SCH ×4 (00:21→18:13)
[2019-01-20 04:11] LABS: ABSOLUTE BASOPHILS # (AUTO) 0.1 10^3/uL (0.0-0.2); ABSOLUTE EOSINOPHILS # (AUTO) 0.2 10^3/uL (0.0-0.6); ABSOLUTE LYMPHOCYTES (AUTO) 1.8 10^3/uL (0.5-4.7); ABSOLUTE MONOCYTES (AUTO) 1.1 10^3/uL (0.1-1.4); ABSOLUTE NEUT (AUTO) 5.2 10^3/uL (1.7-8.2); BASOPHILS % (AUTO) 1.2 % (0-2); EOSINOPHILS % (AUTO) 2.9 % (0-6); HEMATOCRIT 37.1 % (37.9-51.0); HEMOGLOBIN 12.2 g/dL (13.5-17.0); LYMPHOCYTES % (AUTO) 21.2 % (13-45); MEAN CORPUSCULAR HEMOGLOBIN 31.5 pg (27.0-33.4); MEAN CORPUSCULAR HGB CONC 32.9 g/dL (32.0-36.0); MEAN CORPUSCULAR VOLUME 96 fl (80-97); MONOCYTES % (AUTO) 12.7 % (3-13); PLATELET COUNT 255 10^3/uL (150-450); RED BLOOD COUNT 3.87 10^6/uL (4.35-5.55); TOTAL CELLS COUNTED % (AUTO) 100 %; WHITE BLOOD COUNT 8.4 10^3/uL (4.0-10.5)
[2019-01-20 04:31] LABS: ANION GAP 7 (5-19); BLOOD UREA NITROGEN 19 mg/dL (7-20); CALCIUM 9.1 mg/dL (8.4-10.2); CARBON DIOXIDE 32 mmol/L (22-30); CHLORIDE 103 mmol/L (98-107); GLUCOSE 86 mg/dL (75-110); PHOSPHORUS 5.7 mg/dL (2.5-4.5); POTASSIUM 4.4 mmol/L (3.6-5.0)
[2019-01-20 04:33] LABS: ARTERIAL BLOOD BASE EXCESS 2.9 mmol/L; ARTERIAL BLOOD H2CO3 2.19 mmol/L (1.05-1.35); ARTERIAL BLOOD O2 SATURATION 96.7 % (94-98); ARTERIAL BLOOD PH 7.26 (7.35-7.45); ARTERIAL BLOOD PO2 103.5 mmHg (80-100); ARTERIAL BLOOD TOTAL CO2 34.2 mmol/L (23-27)
[2019-01-20 04:36] LABS: ARTERIAL BLOOD FIO2 40%
[2019-01-20 04:37] LABS: ARTERIAL BLOOD PCO2 72.6 mmHg (35-45)
[2019-01-20] MEDS: LORAZEPAM INJ 2 MG/1 ML VIAL IV PRN ×4 (05:25→20:30)
[2019-01-20 08:39] LABS: ARTERIAL BLOOD BASE EXCESS 3.3 mmol/L; ARTERIAL BLOOD H2CO3 2.34 mmol/L (1.05-1.35); ARTERIAL BLOOD O2 SATURATION 94.9 % (94-98); ARTERIAL BLOOD PH 7.25 (7.35-7.45); ARTERIAL BLOOD PO2 88.6 mmHg (80-100); ARTERIAL BLOOD TOTAL CO2 35.4 mmol/L (23-27)
[2019-01-20 08:43] LABS: ARTERIAL BLOOD PCO2 77.6 mmHg (35-45)
[2019-01-20 09:16] LABS: ARTERIAL BLOOD FIO2 40%
[2019-01-20] MEDS: POTASSIUM CHLORIDE 10 MEQ CAPSULE.ER PO SCH (10:43)
[2019-01-20] MEDS: METOPROLOL TARTRATE 50 MG TABLET NG SCH ×2 (10:44→21:03)
[2019-01-20] MEDS: MONTELUKAST SODIUM 10 MG TABLET NG SCH (10:46)
[2019-01-20] MEDS: OLANZAPINE 5 MG TABLET NG SCH ×2 (10:46→18:21)
[2019-01-20] MEDS: ENOXAPARIN SODIUM INJ 40 MG/0.4 ML DISP.SYRIN SUBCUT SCH (10:46)
[2019-01-20] MEDS: FUROSEMIDE 20 MG TABLET NG SCH (10:46)
[2019-01-20] MEDS: LISINOPRIL 10 MG TABLET NG SCH (10:47)
[2019-01-20] MEDS: BUPROPION HCL 100 MG TABLET NG SCH ×3 (14:34→21:04)
[2019-01-20 14:35] LABS: ARTERIAL BLOOD BASE EXCESS 2.8 mmol/L; ARTERIAL BLOOD HCO3 28.2 mmol/L (20-24); ARTERIAL BLOOD O2 SATURATION 95.8 % (94-98); ARTERIAL BLOOD PCO2 46.5 mmHg (35-45); ARTERIAL BLOOD PO2 80.7 mmHg (80-100); ARTERIAL BLOOD TOTAL CO2 29.6 mmol/L (23-27)
[2019-01-20 14:43] LABS: ARTERIAL BLOOD FIO2 35%
[2019-01-20] MEDS: CHLORPROMAZINE HCL INJ 25 MG/1 ML AMPULE IV PRN ×2 (16:18→19:53)
--- NOTE | 2019-01-20 16:28 | PDOC PROGRESS REPORT ---
Subjective Progress Note for:: 01/20/19 Subjective:: No adverse events overnight. He did require some medication for agitation. He was not making much progress on BiPAP so we kept him on for a while longer and his blood gas has improved substantially. He has gotten agitated and we had to put him back in two-point soft restraints. He had a temperature of 101 Fahrenheit this afternoon. No cough but his respiratory rate has been elevated. Reason For Visit: RESPIRATORY FAILURE Physical Exam Vital Signs: Temp Pulse Resp BP Pulse Ox 100.0 F 75 29 H 97/60 L 98 01/20/19 14:00 01/20/19 14:00 01/20/19 15:56 01/20/19 14:14 01/20/19 15:56 Intake & Output 01/19/19 01/20/19 01/21/19 06:59 06:59 06:59 Intake Total 3940 74 Output Total 2530 1530 360 Balance 1410 -1456 -360 Weight 105 kg 105 kg General appearance: PRESENT: disheveled, mild distress, obese. ABSENT: cooperative Respiratory exam: PRESENT: decreased breath sounds, symmetrical, tachypnea. ABSENT: accessory muscle use, chest wall tenderness, crackles, prolonged expir atory phas, rales, rhonchi, wheezes Cardiovascular exam: PRESENT: RRR - Frequent bigeminy, +S1, +S2 Pulses: PRESENT: normal carotid pulses Vascular exam: PRESENT: normal capillary refill GI/Abdominal exam: PRESENT: normal bowel sounds, soft. ABSENT: distended, guarding, rebound, tenderness Extremities exam: ABSENT: clubbing, pedal edema Musculoskeletal exam: PRESENT: normal inspection. ABSENT: deformity Neurological exam: PRESENT: alert, awake, oriented to person, oriented to place Psychiatric exam: PRESENT: agitated Skin exam: PRESENT: dry, warm Results Laboratory Results: 01/20/19 03:37 01/20/19 03:37 01/20/19 01/20/19 01/20/19 03:37 03:37 04:10 WBC 8.4 RBC 3.87 L Hgb 12.2 L Hct 37.1 L MCV 96 MCH 31.5 MCHC 32.9 RDW 14.0 Plt Count 255 Seg Neutrophils % 62.0 Lymphocytes % 21.2 Monocytes % 12.7 Eosinophils % 2.9 Basophils % 1.2 Absolute Neutrophils 5.2 Absolute Lymphocytes 1.8 Absolute Monocytes 1.1 Absolute Eosinophils 0.2 Absolute Basophils 0.1 Carbonic Acid 2.19 H HCO3/H2CO3 Ratio 14:1 ABG pH 7.26 L ABG pCO2 72.6 H* ABG pO2 103.5 H ABG HCO3 32.0 H ABG O2 Saturation 96.7 ABG Base Excess 2.9 FiO2 40% Sodium 141.6 Potassium 4.4 Chloride 103 Carbon Dioxide 32 H Anion Gap 7 BUN 19 Creatinine 0.77 Est GFR ( Amer) > 60 Est GFR (Non-Af Amer) > 60 Glucose 86 Calcium 9.1 Phosphorus 5.7 H Magnesium 2.0 01/20/19 01/20/19 07:23 14:09 WBC RBC Hgb Hct MCV MCH MCHC RDW Plt Count Seg Neutrophils % Lymphocytes % Monocytes % Eosinophils % Basophils % Absolute Neutrophils Absolute Lymphocytes Absolute Monocytes Absolute Eosinophils Absolute Basophils Carbonic Acid 2.34 H 1.40 H HCO3/H2CO3 Ratio 14:1 20:1 ABG pH 7.25 L 7.40 ABG pCO2 77.6 H* 46.5 H ABG pO2 88.6 80.7 ABG HCO3 33.0 H 28.2 H ABG O2 Saturation 94.9 95.8 ABG Base Excess 3.3 2.8 FiO2 40% 35% Sodium Potassium Chloride Carbon Dioxide Anion Gap BUN Creatinine Est GFR ( Amer) Est GFR (Non-Af Amer) Glucose Calcium Phosphorus Magnesium 01/12/19 01/12/19 01/12/19 08:28 08:28 12:49 Creatine Kinase 34 L 30 L CK-MB (CK-2) 1.46 Troponin I < 0.012 NT-Pro-B Natriuret Pep 728 01/12/19 01/12/19 01/12/19 12:49 12:49 18:10 Creatine Kinase 27 L CK-MB (CK-2) Troponin I < 0.012 NT-Pro-B Natriuret Pep 859 01/12/19 01/13/19 01/13/19 18:10 00:26 00:26 Creatine Kinase 24 L CK-MB (CK-2) Troponin I < 0.012 < 0.012 NT-Pro-B Natriuret Pep 01/13/19 05:52 Creatine Kinase CK-MB (CK-2) Troponin I NT-Pro-B Natriuret Pep 287 Impressions: Head CT 01/12/19 00:00 IMPRESSION: NO ACUTE INTRACRANIAL FINDINGS. EVIDENCE OF ACUTE STROKE: NO. KUB X-Ray 01/12/19 11:51 IMPRESSION: NG tube tip overlies the body of the stomach, side port appears below the GE junction. Chest X-Ray 01/19/19 06:00 IMPRESSION: STABLE APPEARANCE OF THE CHEST. SUPPORT DEVICES UNCHANGED. Assessment and Plan - Diagnosis (1) Acute and chronic respiratory failure with hypercapnia Is this a current diagnosis for this admission?: Yes Plan: His blood gases seem to be back to baseline. We will try to take him off BiPAP and put him back on the oxygen is on at home. (2) Alcohol abuse Is this a current diagnosis for this admission?: Yes Plan: He is been here for about a week and so it would be unlikely that he showing signs of withdrawal as a cause of his agitation, but not impossible. We do have him on some Ativan and I have increased the frequency because of his agitation. (3) Atrial fibrillation Qualifiers: Atrial fibrillation type: persistent Qualified Code(s): I48.1 - Persistent atrial fibrillation Is this a current diagnosis for this admission?: Yes Plan: Currently rate controlled on his home medications (4) Obesity (BMI 30-39.9) Is this a current diagnosis for this admission?: Yes Plan: Encouraged lifestyle modification (5) Fever Qualifiers: Fever type: unspecified Qualified Code(s): R50.9 - Fever, unspecified Is this a current diagnosis for this admission?: Yes Plan: He had a temperature earlier on the hospitalization, I have empirically started him on Zosyn in case he has aspirated on the BiPAP. If fever persists we will redraw all cultures. - Time Time Spent with patient: 25-34 minutes
[2019-01-20] MEDS: METHYLPREDNISOLONE INJ 40 MG/1 ML SDV IV SCH (18:24)
[2019-01-20] MEDS: PIPERACILLIN SODIUM/TAZOBACTAM 3.375 GM in NORMAL SALINE 100 ML IV SCH (18:29)
[2019-01-20] MEDS ORDERED: NORMAL SALINE 1000 ML 1,000 ML IV PRN (18:47)
[2019-01-21] MEDS: PIPERACILLIN SODIUM/TAZOBACTAM 3.375 GM in NORMAL SALINE 100 ML IV SCH ×5 (00:25→23:45)
[2019-01-21] MEDS: METHYLPREDNISOLONE INJ 40 MG/1 ML SDV IV SCH ×3 (01:50→18:41)
[2019-01-21] MEDS: CHLORPROMAZINE HCL INJ 25 MG/1 ML AMPULE IV PRN ×2 (02:28→22:41)
[2019-01-21] MEDS: LORAZEPAM INJ 2 MG/1 ML VIAL IV PRN (02:30)
[2019-01-21 04:22] LABS: ARTERIAL BLOOD BASE EXCESS 0 mmol/L; ARTERIAL BLOOD FIO2 40%; ARTERIAL BLOOD H2CO3 1.77 mmol/L (1.05-1.35); ARTERIAL BLOOD HCO3 27.6 mmol/L (20-24); ARTERIAL BLOOD O2 SATURATION 92.5 % (94-98); ARTERIAL BLOOD PCO2 58.9 mmHg (35-45); ARTERIAL BLOOD PH 7.29 (7.35-7.45); ARTERIAL BLOOD PO2 72.4 mmHg (80-100); ARTERIAL BLOOD TOTAL CO2 29.4 mmol/L (23-27)
[2019-01-21 04:38] LABS: ABSOLUTE LYMPHOCYTES (AUTO) 0.7 10^3/uL (0.5-4.7); ABSOLUTE MONOCYTES (AUTO) 0.2 10^3/uL (0.1-1.4); ABSOLUTE NEUT (AUTO) 7.1 10^3/uL (1.7-8.2); BASOPHILS % (AUTO) 0.6 % (0-2); EOSINOPHILS % (AUTO) 0.1 % (0-6); HEMATOCRIT 36.9 % (37.9-51.0); HEMOGLOBIN 12.3 g/dL (13.5-17.0); MEAN CORPUSCULAR HEMOGLOBIN 31.7 pg (27.0-33.4); MEAN CORPUSCULAR HGB CONC 33.3 g/dL (32.0-36.0); MEAN CORPUSCULAR VOLUME 95 fl (80-97); MONOCYTES % (AUTO) 2.3 % (3-13); PLATELET COUNT 301 10^3/uL (150-450); RED BLOOD COUNT 3.87 10^6/uL (4.35-5.55); RED CELL DISTRIBUTION WIDTH 13.5 % (11.5-14.0); TOTAL CELLS COUNTED % (AUTO) 100 %
[2019-01-21 05:02] LABS: ANION GAP 9 (5-19); BLOOD UREA NITROGEN 36 mg/dL (7-20); CALCIUM 9.4 mg/dL (8.4-10.2); CARBON DIOXIDE 29 mmol/L (22-30); CHLORIDE 103 mmol/L (98-107); GLUCOSE 109 mg/dL (75-110); PHOSPHORUS 6.5 mg/dL (2.5-4.5); POTASSIUM 5.1 mmol/L (3.6-5.0)
[2019-01-21] MEDS: BUPROPION HCL 100 MG TABLET NG SCH ×3 (05:06→22:41)
--- NOTE | 2019-01-21 08:26 | RADIOLOGY REPORT (SQ) ---
EXAM DESCRIPTION: CHEST SINGLE VIEW COMPLETED DATE/TIME: 01/21/2019 6:39 am REASON FOR STUDY: copd/resp failure COMPARISON: 01/19/2019 EXAM PARAMETERS: NUMBER OF VIEWS: One view. TECHNIQUE: Single frontal radiographic view of the chest acquired. RADIATION DOSE: NA LIMITATIONS: None. FINDINGS: LUNGS AND PLEURA: Low lung volumes with minimal left basilar patchy opacities, possibly at electasis or infection. No pneumothorax. No large effusion. MEDIASTINUM AND HILAR STRUCTURES: No masses. Contour normal. HEART AND VASCULAR STRUCTURES: Heart normal in size. Normal vasculature. BONES: No acute findings. HARDWARE: Extubation with removal of the NG tube. OTHER: No other significant finding. IMPRESSION: Extubation. Low lung volumes with mild left basilar opacities, likely atelectasis. TECHNICAL DOCUMENTATION: JOB ID: [id number] [employer]- All Rights Reserved Reading location - IP/workstation name: [email or web address]
[2019-01-21] MEDS ORDERED: LORAZEPAM INJ 2 MG/1 ML VIAL IV PRN ×2 (08:49→09:40)
[2019-01-21] MEDS: OLANZAPINE 5 MG TABLET NG SCH ×2 (11:04→18:41)
[2019-01-21] MEDS: METOPROLOL TARTRATE 50 MG TABLET NG SCH ×2 (11:04→22:40)
[2019-01-21] MEDS: MONTELUKAST SODIUM 10 MG TABLET NG SCH (11:05)
[2019-01-21] MEDS: FUROSEMIDE 20 MG TABLET NG SCH (11:05)
[2019-01-21] MEDS: ENOXAPARIN SODIUM INJ 40 MG/0.4 ML DISP.SYRIN SUBCUT SCH (11:06)
[2019-01-21] MEDS: POTASSIUM CHLORIDE 10 MEQ CAPSULE.ER PO SCH (11:07)
--- NOTE | 2019-01-21 16:11 | PDOC PROGRESS REPORT ---
Subjective Progress Note for:: 01/21/19 Subjective:: No adverse events overnight. He did get a little bit agitated last night and pulled out his IV but they were able to get it replaced. After a while he actually settled down and slept for a while and slept most of the morning. Whenever he woke up he seemed to be doing much better. We took him off BiPAP and thus far he is done well on 4 L nasal cannula. Reason For Visit: RESPIRATORY FAILURE Physical Exam Vital Signs: Temp Pulse Resp BP Pulse Ox 98.0 F 83 24 H 155/107 H 97 01/21/19 12:00 01/21/19 14:00 01/21/19 15:03 01/21/19 15:03 01/21/19 15:03 Intake & Output 01/20/19 01/21/19 01/22/19 06:59 06:59 06:59 Intake Total 74 300 Output Total 1530 740 285 Balance -1456 -440 -285 Weight 105 kg 102.2 kg General appearance: PRESENT: disheveled, no apparent distress, obese Respiratory exam: PRESENT: decreased breath sounds, symmetrical, tachypnea. ABSENT: accessory muscle use, chest wall tenderness, crackles, prolonged expiratory phas, rales, rhonchi, wheezes Cardiovascular exam: PRESENT: RRR - Frequent bigeminy, +S1, +S2 Pulses: PRESENT: normal carotid pulses Vascular exam: PRESENT: normal capillary refill GI/Abdominal exam: PRESENT: normal bowel sounds, soft. ABSENT: distended, guarding, rebound, tenderness Extremities exam: ABSENT: clubbing, pedal edema Musculoskeletal exam: PRESENT: normal inspection. ABSENT: deformity Neurological exam: PRESENT: alert, awake, oriented to person, oriented to place Psychiatric exam: PRESENT: agitated Skin exam: PRESENT: dry, warm Results Laboratory Results: 01/21/19 04:10 01/21/19 04:10 01/21/19 01/21/19 01/21/19 04:00 04:10 04:10 WBC 8.0 RBC 3.87 L Hgb 12.3 L Hct 36.9 L MCV 95 MCH 31.7 MCHC 33.3 RDW 13.5 Plt Count 301 Seg Neutrophils % 88.0 H Lymphocytes % 9.0 L Monocytes % 2.3 L Eosinophils % 0.1 Basophils % 0.6 Absolute Neutrophils 7.1 Absolute Lymphocytes 0.7 Absolute Monocytes 0.2 Absolute Eosinophils 0.0 Absolute Basophils 0.0 Carbonic Acid 1.77 H HCO3/H2CO3 Ratio 15:1 ABG pH 7.29 L ABG pCO2 58.9 H ABG pO2 72.4 L ABG HCO3 27.6 H ABG O2 Saturation 92.5 L ABG Base Excess 0 FiO2 40% Sodium 140.9 Potassium 5.1 H Chloride 103 Carbon Dioxide 29 Anion Gap 9 BUN 36 H Creatinine 0.99 Est GFR ( Amer) > 60 Est GFR (Non-Af Amer) > 60 Glucose 109 Calcium 9.4 Phosphorus 6.5 H Magnesium 2.2 01/12/19 01/12/19 01/12/19 08:28 08:28 12:49 Creatine Kinase 34 L 30 L CK-MB (CK-2) 1.46 Troponin I < 0.012 NT-Pro-B Natriuret Pep 728 01/12/19 01/12/19 01/12/19 12:49 12:49 18:10 Creatine Kinase 27 L CK-MB (CK-2) Troponin I < 0.012 NT-Pro-B Natriuret Pep 859 01/12/19 01/13/19 01/13/19 18:10 00:26 00:26 Creatine Kinase 24 L CK-MB (CK-2) Troponin I < 0.012 < 0.012 NT-Pro-B Natriuret Pep 01/13/19 05:52 Creatine Kinase CK-MB (CK-2) Troponin I NT-Pro-B Natriuret Pep 287 Impressions: Head CT 01/12/19 00:00 IMPRESSION: NO ACUTE INTRACRANIAL FINDINGS. EVIDENCE OF ACUTE STROKE: NO. KUB X-Ray 01/12/19 11:51 IMPRESSION: NG tube tip overlies the body of the stomach, side port appears below the GE junction. Chest X-Ray 01/21/19 06:00 IMPRESSION: Extubation. Low lung volumes with mild left basilar opacities, likely atelectasis. Assessment and Plan - Diagnosis (1) Acute and chronic respiratory failure with hypercapnia Is this a current diagnosis for this admission?: Yes Plan: We are going to try him on his usual level of home oxygen support. Currently off BiPAP. Previously, when he comes off BiPAP his PCO2 goes up we have to put him back on, but hopefully this will not happen. (2) Alcohol abuse Is this a current diagnosis for this admission?: Yes Plan: He is been here for about a week and so it would be unlikely that he showing signs of withdrawal as a cause of his agitation, but not impossible. We do have him on some Ativan as needed. (3) Atrial fibrillation Qualifiers: Atrial fibrillation type: persistent Qualified Code(s): I48.1 - Persistent atrial fibrillation Is this a current diagnosis for this admission?: Yes Plan: Currently rate controlled on his home medications (4) Obesity (BMI 30-39.9) Is this a current diagnosis for this admission?: Yes Plan: Encouraged lifestyle modification (5) Fever Qualifiers: Fever type: unspecified Qualified Code(s): R50.9 - Fever, unspecified Is this a current diagnosis for this admission?: Yes Plan: He had a temperature earlier on the hospitalization, I have empirically started him on Zosyn in case he has aspirated on the BiPAP. If fever persists we will redraw all cultures, but thus far he has been afebrile. - Time Time Spent with patient: 25-34 minutes
[2019-01-21] MEDS ORDERED: ACETAMINOPHEN SOLN 325 MG/10.15 ML UDCUP PO PRN (20:20)
[2019-01-22] MEDS: METHYLPREDNISOLONE INJ 40 MG/1 ML SDV IV SCH ×3 (01:51→17:45)
[2019-01-22] MEDS: LORAZEPAM INJ 2 MG/1 ML VIAL IV PRN ×4 (03:05→18:27)
[2019-01-22] MEDS ORDERED: CHLORPROMAZINE HCL INJ 25 MG/1 ML AMPULE ONE ×2 (03:20→22:56)
[2019-01-22] MEDS: CHLORPROMAZINE HCL INJ 25 MG/1 ML AMPULE IV PRN ×2 (03:30→23:02)
[2019-01-22 04:09] LABS: ABSOLUTE LYMPHOCYTES (AUTO) 0.8 10^3/uL (0.5-4.7); ABSOLUTE MONOCYTES (AUTO) 0.4 10^3/uL (0.1-1.4); ABSOLUTE NEUT (AUTO) 9.1 10^3/uL (1.7-8.2); BASOPHILS % (AUTO) 0.1 % (0-2); EOSINOPHILS % (AUTO) 0.1 % (0-6); HEMOGLOBIN 11.8 g/dL (13.5-17.0); LYMPHOCYTES % (AUTO) 7.3 % (13-45); MEAN CORPUSCULAR HEMOGLOBIN 31.6 pg (27.0-33.4); MEAN CORPUSCULAR HGB CONC 33.7 g/dL (32.0-36.0); MEAN CORPUSCULAR VOLUME 94 fl (80-97); PLATELET COUNT 337 10^3/uL (150-450); RED BLOOD COUNT 3.74 10^6/uL (4.35-5.55); RED CELL DISTRIBUTION WIDTH 13.7 % (11.5-14.0); SEGMENTED NEUTROPHILS % (AUTO) 88.5 % (42-78); TOTAL CELLS COUNTED % (AUTO) 100 %; WHITE BLOOD COUNT 10.3 10^3/uL (4.0-10.5)
[2019-01-22 04:51] LABS: ANION GAP 8 (5-19); BLOOD UREA NITROGEN 35 mg/dL (7-20); CALCIUM 9.3 mg/dL (8.4-10.2); CARBON DIOXIDE 29 mmol/L (22-30); CHLORIDE 101 mmol/L (98-107); GLUCOSE 123 mg/dL (75-110); POTASSIUM 4.5 mmol/L (3.6-5.0)
[2019-01-22 05:04] LABS: PHOSPHORUS 4.5 mg/dL (2.5-4.5)
[2019-01-22] MEDS: BUPROPION HCL 100 MG TABLET NG SCH ×3 (05:20→21:41)
[2019-01-22] MEDS: PIPERACILLIN SODIUM/TAZOBACTAM 3.375 GM in NORMAL SALINE 100 ML IV SCH ×3 (05:20→17:42)
--- NOTE | 2019-01-22 08:21 | RADIOLOGY REPORT (SQ) ---
EXAM DESCRIPTION: CHEST SINGLE VIEW COMPLETED DATE/TIME: 01/22/2019 7:07 am REASON FOR STUDY: pna/copd/resp failure COMPARISON: 01/21/2019. EXAM PARAMETERS: NUMBER OF VIEWS: One view. TECHNIQUE: Single frontal radiographic view of the chest acquired. RADIATION DOSE: NA LIMITATIONS: None. FINDINGS: LUNGS AND PLEURA: Low lung volumes with elevated right hemidiaphragm. Faint basilar atele ctasis. MEDIASTINUM AND HILAR STRUCTURES: No masses. Contour normal. HEART AND VASCULAR STRUCTURES: Heart normal in size. Normal vasculature. BONES: No acute findings. HARDWARE: None in the chest. OTHER: No other significant finding. IMPRESSION: STABLE APPEARANCE. NO ACUTE RADIOGRAPHIC FINDING IN THE CHEST. TECHNICAL DOCUMENTATION: JOB ID: [id number] [employer]- All Rights Reserved Reading location - IP/workstation name: [email or web address]
[2019-01-22] MEDS: ENOXAPARIN SODIUM INJ 40 MG/0.4 ML DISP.SYRIN SUBCUT SCH (11:41)
[2019-01-22] MEDS: OLANZAPINE 5 MG TABLET NG SCH ×2 (11:42→17:45)
[2019-01-22] MEDS: FUROSEMIDE 20 MG TABLET NG SCH (11:42)
[2019-01-22] MEDS: POTASSIUM CHLORIDE 10 MEQ CAPSULE.ER PO SCH (11:42)
[2019-01-22] MEDS: MONTELUKAST SODIUM 10 MG TABLET NG SCH (11:43)
[2019-01-22] MEDS: METOPROLOL TARTRATE 50 MG TABLET NG SCH ×2 (11:43→21:41)
--- NOTE | 2019-01-22 18:09 | PDOC PROGRESS REPORT ---
Subjective Progress Note for:: 01/22/19 Subjective:: No adverse events overnight. He still gets little agitated at times and requires intermittent use of restraints and medication for agitation. It seems like even when he is on BiPAP he does not ventilate properly. At one point yesterday he said that he wanted to go home on comfort measures. He does have some moments where he is intermittently lucid. We had him off BiPAP for a little while this afternoon while his was in the room and we told her that it seems like his lungs are at a point where they were no longer work effectively without mechanical assistance. She is ambivalent about the idea of getting him trached and pegged and put on a trilogy device. He said he does not want it. Reason For Visit: RESPIRATORY FAILURE Physical Exam Vital Signs: Temp Pulse Resp BP Pulse Ox 97.9 F 65 20 129/78 H 95 01/22/19 16:00 01/22/19 16:00 01/22/19 16:00 01/22/19 16:00 01/22/19 16:00 Intake & Output 01/21/19 01/22/19 01/23/19 06:59 06:59 06:59 Intake Total 300 400 100 Output Total 740 1320 540 Balance -440 -920 -440 Weight 102.2 kg 102.7 kg General appearance: PRESENT: disheveled, no apparent distress, obese Respiratory exam: PRESENT: decreased breath sounds, symmetrical, tachypnea. ABSENT: accessory muscle use, chest wall tenderness, crackles, prolonged expira tory phas, rales, rhonchi, wheezes Cardiovascular exam: PRESENT: RRR - Frequent bigeminy, +S1, +S2 Pulses: PRESENT: normal carotid pulses Vascular exam: PRESENT: normal capillary refill GI/Abdominal exam: PRESENT: normal bowel sounds, soft. ABSENT: distended, guarding, rebound, tenderness Extremities exam: ABSENT: clubbing, pedal edema Musculoskeletal exam: PRESENT: normal inspection. ABSENT: deformity Neurological exam: PRESENT: alert, awake, oriented to person, oriented to place Psychiatric exam: PRESENT: agitated Skin exam: PRESENT: dry, warm Results Laboratory Results: 01/22/19 03:56 01/22/19 03:56 01/22/19 01/22/19 03:56 03:56 WBC 10.3 RBC 3.74 L Hgb 11.8 L Hct 35.0 L MCV 94 MCH 31.6 MCHC 33.7 RDW 13.7 Plt Count 337 Seg Neutrophils % 88.5 H Lymphocytes % 7.3 L Monocytes % 4.0 Eosinophils % 0.1 Basophils % 0.1 Absolute Neutrophils 9.1 H Absolute Lymphocytes 0.8 Absolute Monocytes 0.4 Absolute Eosinophils 0.0 Absolute Basophils 0.0 Sodium 137.6 Potassium 4.5 Chloride 101 Carbon Dioxide 29 Anion Gap 8 BUN 35 H Creatinine 0.89 Est GFR ( Amer) > 60 Est GFR (Non-Af Amer) > 60 Glucose 123 H Calcium 9.3 Phosphorus 4.5 D Magnesium 2.2 01/12/19 01/12/19 01/12/19 08:28 08:28 12:49 Creatine Kinase 34 L 30 L CK-MB (CK-2) 1.46 Troponin I < 0.012 NT-Pro-B Natriuret Pep 728 01/12/19 01/12/19 01/12/19 12:49 12:49 18:10 Creatine Kinase 27 L CK-MB (CK-2) Troponin I < 0.012 NT-Pro-B Natriuret Pep 859 01/12/19 01/13/19 01/13/19 18:10 00:26 00:26 Creatine Kinase 24 L CK-MB (CK-2) Troponin I < 0.012 < 0.012 NT-Pro-B Natriuret Pep 01/13/19 05:52 Creatine Kinase CK-MB (CK-2) Troponin I NT-Pro-B Natriuret Pep 287 Impressions: Head CT 01/12/19 00:00 IMPRESSION: NO ACUTE INTRACRANIAL FINDINGS. EVIDENCE OF ACUTE STROKE: NO. KUB X-Ray 01/12/19 11:51 IMPRESSION: NG tube tip overlies the body of the stomach, side port appears below the GE junction. Chest X-Ray 01/22/19 06:00 IMPRESSION: STABLE APPEARANCE. NO ACUTE RADIOGRAPHIC FINDING IN THE CHEST. Assessment and Plan - Diagnosis (1) Acute and chronic respiratory failure with hypercapnia Is this a current diagnosis for this admission?: Yes Plan: He is essentially BiPAP dependent. Had a long conversation with his as noted above. We will follow-up with her tomorrow. Did agree to have a conversation with someone from hospice. (2) Alcohol abuse Is this a current diagnosis for this admission?: Yes Plan: He is been here for about a week and so it would be unlikely that he showing signs of withdrawal as a cause of his agitation, but not impossible. We do have him on some Ativan as needed. (3) Atrial fibrillation Qualifiers: Atrial fibrillation type: persistent Qualified Code(s): I48.1 - Persistent atrial fibrillation Is this a current diagnosis for this admission?: Yes Plan: Currently rate controlled on his home medications (4) Obesity (BMI 30-39.9) Is this a current diagnosis for this admission?: Yes Plan: Encouraged lifestyle modification (5) Fever Qualifiers: Fever type: unspecified Qualified Code(s): R50.9 - Fever, unspecified Is this a current diagnosis for this admission?: Yes Plan: He had a temperature earlier on the hospitalization, I have empirically started him on Zosyn in case he has aspirated on the BiPAP. If fever persists we will redraw all cultures, but thus far he has been afebrile. Chest x-ray shows improvement in the basilar opacity. - Time Time Spent with patient: 35 or more minutes
[2019-01-23] MEDS: PIPERACILLIN SODIUM/TAZOBACTAM 3.375 GM in NORMAL SALINE 100 ML IV SCH ×5 (00:10→22:59)
[2019-01-23] MEDS: METHYLPREDNISOLONE INJ 40 MG/1 ML SDV IV SCH ×3 (01:26→18:41)
[2019-01-23 03:17] LABS: ARTERIAL BLOOD BASE EXCESS 3.5 mmol/L; ARTERIAL BLOOD FIO2 40%; ARTERIAL BLOOD HCO3 31.8 mmol/L (20-24); ARTERIAL BLOOD O2 SATURATION 97.2 % (94-98); ARTERIAL BLOOD PCO2 66.5 mmHg (35-45); ARTERIAL BLOOD PO2 106.3 mmHg (80-100); ARTERIAL BLOOD TOTAL CO2 33.8 mmol/L (23-27)
[2019-01-23 04:11] LABS: ABSOLUTE LYMPHOCYTES (AUTO) 0.8 10^3/uL (0.5-4.7); ABSOLUTE MONOCYTES (AUTO) 0.5 10^3/uL (0.1-1.4); ABSOLUTE NEUT (AUTO) 8.1 10^3/uL (1.7-8.2); BASOPHILS % (AUTO) 0.2 % (0-2); HEMATOCRIT 35.6 % (37.9-51.0); HEMOGLOBIN 11.8 g/dL (13.5-17.0); LYMPHOCYTES % (AUTO) 8.3 % (13-45); MEAN CORPUSCULAR HEMOGLOBIN 31.4 pg (27.0-33.4); MEAN CORPUSCULAR HGB CONC 33.3 g/dL (32.0-36.0); MEAN CORPUSCULAR VOLUME 94 fl (80-97); MONOCYTES % (AUTO) 5.3 % (3-13); PLATELET COUNT 343 10^3/uL (150-450); RED BLOOD COUNT 3.77 10^6/uL (4.35-5.55); RED CELL DISTRIBUTION WIDTH 13.7 % (11.5-14.0); SEGMENTED NEUTROPHILS % (AUTO) 86.2 % (42-78); TOTAL CELLS COUNTED % (AUTO) 100 %; WHITE BLOOD COUNT 9.4 10^3/uL (4.0-10.5)
[2019-01-23 04:27] LABS: ANION GAP 5 (5-19); BLOOD UREA NITROGEN 31 mg/dL (7-20); CALCIUM 9.3 mg/dL (8.4-10.2); CARBON DIOXIDE 33 mmol/L (22-30); CHLORIDE 102 mmol/L (98-107); GLUCOSE 111 mg/dL (75-110); PHOSPHORUS 4.1 mg/dL (2.5-4.5); POTASSIUM 4.2 mmol/L (3.6-5.0)
[2019-01-23] MEDS: BUPROPION HCL 100 MG TABLET NG SCH ×3 (05:55→21:24)
--- NOTE | 2019-01-23 08:43 | RADIOLOGY REPORT (SQ) ---
EXAM DESCRIPTION: CHEST SINGLE VIEW COMPLETED DATE/TIME: 01/23/2019 6:35 am REASON FOR STUDY: barry-copd COMPARISON: 01/22/2019 NUMBER OF VIEWS: One view. TECHNIQUE: Single frontal radiographic image of the chest acquired. LIMITATIONS: None. FINDINGS: LUNGS AND PLEURA: Stable appearance. MEDIASTINUM AND HILAR STRUCTURES: Stable heart size and mediastinal structures. HEART AND VASCULAR STRUCTURES: Stable appearance. BONES: No acute findings. HARDWARE: None in the chest. OTHER: No other significant finding. IMPRESSION: STABLE APPEARANCE OF THE CHEST. TECHNICAL DOCUMENTATION: JOB ID: [id number] [employer]- All Rights Reserved Reading location - IP/workstation name: [email or web address]
[2019-01-23] MEDS: POTASSIUM CHLORIDE 10 MEQ CAPSULE.ER PO SCH (09:36)
[2019-01-23] MEDS: MONTELUKAST SODIUM 10 MG TABLET NG SCH (09:36)
[2019-01-23] MEDS: FUROSEMIDE 20 MG TABLET NG SCH (09:36)
[2019-01-23] MEDS: METOPROLOL TARTRATE 50 MG TABLET NG SCH ×2 (09:37→21:24)
[2019-01-23] MEDS: OLANZAPINE 5 MG TABLET NG SCH ×2 (09:37→18:41)
[2019-01-23] MEDS: ENOXAPARIN SODIUM INJ 40 MG/0.4 ML DISP.SYRIN SUBCUT SCH (09:38)
[2019-01-23 11:18] LABS: ARTERIAL BLOOD BASE EXCESS 2.6 mmol/L; ARTERIAL BLOOD H2CO3 1.93 mmol/L (1.05-1.35); ARTERIAL BLOOD HCO3 30.6 mmol/L (20-24); ARTERIAL BLOOD O2 SATURATION 96.7 % (94-98); ARTERIAL BLOOD PCO2 64.1 mmHg (35-45); ARTERIAL BLOOD TOTAL CO2 32.6 mmol/L (23-27)
[2019-01-23 11:21] LABS: ARTERIAL BLOOD FIO2 3L
--- NOTE | 2019-01-23 11:59 | PDOC CONSULTATION ---
Consultation Consult Date: 01/13/19 Attending physician:: SURYA AUSTIN Provider Consulted: ARNOL JIMENEZ Consult reason:: Acute on chronic respiratory failure History of Present Illness Admission Date/PCP: 01/12/19 12:08 BROCK ETIENNE PA-C History of Present Illness: KAMERON TRUJILLO is a 58 year old male,Extended history of chronic respiratory failure O2 use exacerbations of COPD has a history of smoking as well as EtOH use he presented to the emergency room with a PCO2 of 128 and altered mental status and he did not respond to BiPAP and was subsequently intubated 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 Musculoskeltal Medical History: Denies: Fibromyalgia Psychiatric Medical History: Reports: Depression, Tobacco Dependency Traumatic Medical History: Denies: Gunshot Wound, Pneumothorax, Stab Wound Hematology: Denies: Sickle Cell Disease Infectious Medical History: Denies: Clostridium Difficile, HIV Past Surgical History Past Surgical History: Reports: None, Other Social History Information Source: Relative, [facility] Records Lives with: Family Smoking Status: Current Every Day Smoker Passive smoke exposure as: Both Frequency of Alcohol Use: Heavy Hx Recreational Drug Use: No Drugs: None Hx Prescription Drug Abuse: No Do you have pets?: No Have you had any respiratory illnesses as a child?: No Have you been exposed to any sick contacts recently?: No Have you had any recent respiratory illnesses?: No Have you travelled outside of [place] in the past 12 months?: No - Advance Directive Resuscitation Status: Full Code Family History Family History: Hypertension Parental Family History Reviewed: No Children Family History Reviewed: No Sibling(s) Family History Reviewed.: No Medication/Allergy Home Medications: Alprazolam [Xanax 0.5 mg Tablet] 0.5 mg PO Q8HP PRN 01/12/19 Aspirin [Ecotrin 81 mg EC Tablet] 81 mg PO DAILY 01/12/19 Bupropion HCl [Wellbutrin Xl 300mg 24hr Tablet] 300 mg PO QAM 01/12/19 Duloxetine HCl [Cymbalta] 60 mg PO Q12 01/12/19 Furosemide [Lasix 40 mg Tablet] 40 mg PO DAILY 01/12/19 Lisinopril [Zestril] 20 mg PO DAILY 01/12/19 Metoprolol Tartrate [Lopressor 50 mg Tablet] 50 mg PO Q12 01/12/19 Montelukast Sodium [Singulair 10 mg Tablet] 10 mg PO DAILY 01/12/19 Potassium Chloride [K-Tab ER] 10 meq PO DAILY 01/12/19 Tamsulosin HCl [Flomax 0.4 mg Cap.sr] 0.4 mg PO DAILY 01/12/19 Allergies/Adverse Reactions: No Known Allergies Allergy (Verified 10/21/17 13:20) Review of Systems ROS unobtainable: Due to endotracheal tube, Due to mental status Physical Exam Vital Signs: Temp Pulse Resp BP Pulse Ox 97.6 F 78 16 117/71 100 01/13/19 08:00 01/13/19 09:01 01/13/19 09:01 01/13/19 05:27 01/13/19 09:01 Intake & Output 01/12/19 01/13/19 01/14/19 06:59 06:59 06:59 Intake Total 537 100 Output Total 620 60 Balance -83 40 Weight 110.3 kg General appearance: PRESENT: no acute distress, disheveled, morbidly obese. ABSENT: cooperative Head exam: PRESENT: atraumatic, normocephalic Eye exam: PRESENT: conjunctiva pale, EOMI. ABSENT: nystagmus, periorbital swelling, scleral icterus Mouth exam: PRESENT: dry mucosa, neck supple, tongue midline, other - ET tube Neck exam: ABSENT: carotid bruit, full ROM, JVD, lymphadenopathy, meningismus, tenderness, thyromegaly, tracheal deviation, tracheostomy, other Respiratory exam: PRESENT: decreased breath sounds, prolonged expiratory phas, rales, rhonchi, unlabored, wheezes. ABSENT: retraction, stridor, tachypnea Cardiovascular exam: PRESENT: irregular rhythm, tachycardia Pulses: PRESENT: normal radial pulses GI/Abdominal exam: PRESENT: soft. ABSENT: mass, tenderness Gentrourinary exam: PRESENT: indwelling catheter Extremities exam: PRESENT: pedal edema. ABSENT: calf tenderness, clubbing, joint swelling Musculoskeletal exam: ABSENT: ambulatory, deformity, dislocation Neurological exam: ABSENT: awake Skin exam: PRESENT: dry, warm Results Laboratory Results: 01/13/19 05:52 01/13/19 05:52 01/12/19 01/12/19 01/12/19 08:52 11:34 14:21 WBC RBC Hgb Hct MCV MCH MCHC RDW Plt Count Seg Neutrophils % Lymphocytes % Monocytes % Eosinophils % Basophils % Absolute Neutrophils Absolute Lymphocytes Absolute Monocytes Absolute Eosinophils Absolute Basophils Carbonic Acid 2.19 H HCO3/H2CO3 Ratio 15:1 ABG pH 7.29 L ABG pCO2 72.7 H* ABG pO2 124.8 H ABG HCO3 34.0 H ABG O2 Saturation 98.0 ABG Base Excess 5.1 FiO2 60% Sodium Potassium Chloride Carbon Dioxide Anion Gap BUN Creatinine Est GFR ( Amer) Est GFR (Non-Af Amer) Glucose Lactic Acid 0.9 Calcium Phosphorus Magnesium Total Bilirubin AST ALT Alkaline Phosphatase Total Protein Albumin Triglycerides Cholesterol LDL Cholesterol Direct VLDL Cholesterol HDL Cholesterol TSH Urine Color STRAW Urine Appearance CLEAR Urine pH 6.0 Ur Specific [place] 1.010 Urine Protein NEGATIVE Urine Glucose (UA) NEGATIVE Urine Ketones NEGATIVE Urine Blood NEGATIVE Urine Nitrite NEGATIVE Ur Leukocyte Esterase NEGATIVE Urine WBC (Auto) 1 Urine RBC (Auto) 1 01/12/19 01/12/19 01/13/19 15:00 17:10 04:39 WBC RBC Hgb Hct MCV MCH MCHC RDW Plt Count Seg Neutrophils % Lymphocytes % Monocytes % Eosinophils % Basophils % Absolute Neutrophils Absolute Lymphocytes Absolute Monocytes Absolute Eosinophils Absolute Basophils Carbonic Acid 1.64 H 1.51 H HCO3/H2CO3 Ratio 18:1 22:1 ABG pH 7.36 7.44 ABG pCO2 54.5 H 50.2 H ABG pO2 72.8 L 87.5 ABG HCO3 30.3 H 33.3 H ABG O2 Saturation 93.9 L 96.8 ABG Base Excess 3.7 7.9 FiO2 40% 50% Sodium Potassium Chloride Carbon Dioxide Anion Gap BUN Creatinine Est GFR ( Amer) Est GFR (Non-Af Amer) Glucose Lactic Acid Calcium Phosphorus Magnesium Total Bilirubin AST ALT Alkaline Phosphatase Total Protein Albumin Triglycerides 72 Cholesterol LDL Cholesterol Direct VLDL Cholesterol HDL Cholesterol TSH Urine Color Urine Appearance Urine pH Ur Specific [place] Urine Protein Urine Glucose (UA) Urine Ketones Urine Blood Urine Nitrite Ur Leukocyte Esterase Urine WBC (Auto) Urine RBC (Auto) 07/16/19 07/16/19 07/16/19 05:52 05:52 05:52 WBC 12.6 H RBC 3.66 L Hgb 11.6 L Hct 35.2 L MCV 96 MCH 31.7 MCHC 32.9 RDW 14.3 H Plt Count 237 Seg Neutrophils % 73.7 Lymphocytes % 16.1 Monocytes % 9.6 Eosinophils % 0.3 Basophils % 0.3 Absolute Neutrophils 9.3 H Absolute Lymphocytes 2.0 Absolute Monocytes 1.2 Absolute Eosinophils 0.0 Absolute Basophils 0.0 Carbonic Acid HCO3/H2CO3 Ratio ABG pH ABG pCO2 ABG pO2 ABG HCO3 ABG O2 Saturation ABG Base Excess FiO2 Sodium 137.1 Potassium 4.0 Chloride 99 Carbon Dioxide 35 H Anion Gap 3 L BUN 12 Creatinine 0.84 Est GFR ( Amer) > 60 Est GFR (Non-Af Amer) > 60 Glucose 93 Lactic Acid Calcium 9.2 Phosphorus 2.8 Magnesium 1.9 Total Bilirubin 0.2 AST 17 ALT 30 Alkaline Phosphatase 65 Total Protein 5.4 L Albumin 3.0 L Triglycerides 130 Cholesterol 156.72 LDL Cholesterol Direct 80 VLDL Cholesterol 26.0 HDL Cholesterol 60 TSH 0.44 L Urine Color Urine Appearance Urine pH Ur Specific [place] Urine Protein Urine Glucose (UA) Urine Ketones Urine Blood Urine Nitrite Ur Leukocyte Esterase Urine WBC (Auto) Urine RBC (Auto) 01/12/19 01/12/19 01/12/19 08:28 08:28 12:49 Creatine Kinase 34 L 30 L CK-MB (CK-2) 1.46 Troponin I < 0.012 NT-Pro-B Natriuret Pep 728 01/12/19 01/12/19 01/12/19 12:49 12:49 18:10 Creatine Kinase 27 L CK-MB (CK-2) Troponin I < 0.012 NT-Pro-B Natriuret Pep 859 01/12/19 01/13/19 01/13/19 18:10 00:26 00:26 Creatine Kinase 24 L CK-MB (CK-2) Troponin I < 0.012 < 0.012 NT-Pro-B Natriuret Pep 01/13/19 05:52 Creatine Kinase CK-MB (CK-2) Troponin I NT-Pro-B Natriuret Pep 287 Impressions: Head CT 01/12/19 00:00 IMPRESSION: NO ACUTE INTRACRANIAL FINDINGS. EVIDENCE OF ACUTE STROKE: NO. Chest X-Ray 01/12/19 11:10 IMPRESSION: Good position of support apparatus. No pneumothorax. KUB X-Ray 01/12/19 11:51 IMPRESSION: NG tube tip overlies the body of the stomach, side port appears below the GE junction. Assessment & Plan - Diagnosis (1) Atrial fibrillation Qualifiers: Atrial fibrillation type: persistent Qualified Code(s): I48.1 - Persistent atrial fibrillation Is this a current diagnosis for this admission?: Yes Plan: Reinstitute home medication and anticoagulation (2) Acute and chronic respiratory failure with hypercapnia Is this a current diagnosis for this admission?: Yes Plan: PCO2 128 ventilation and oxygenate to keep patient near his baseline (3) Alcohol abuse Is this a current diagnosis for this admission?: Yes Plan: DT prophylaxis (4) Altered mental status Qualifiers: Altered mental status type: coma Coma depth: [place] coma 3-8 Coma timing: in the field (EMT or ambulance) Qualified Code(s): R40.2431 - [place] coma scale score 3-8, in the field [EMT or ambulance] Is this a current diagnosis for this admission?: Yes Plan: Based on presentation (5) COPD (chronic obstructive pulmonary disease) Qualifiers: Emphysema type: unspecified Is this a current diagnosis for this admission?: Yes - Time Total Critical Time (Minutes): 55
[2019-01-23 13:15] LABS: ARTERIAL BLOOD BASE EXCESS 2.5 mmol/L; ARTERIAL BLOOD H2CO3 1.87 mmol/L (1.05-1.35); ARTERIAL BLOOD HCO3 30.4 mmol/L (20-24); ARTERIAL BLOOD O2 SATURATION 92.5 % (94-98); ARTERIAL BLOOD PCO2 62.2 mmHg (35-45); ARTERIAL BLOOD PH 7.31 (7.35-7.45); ARTERIAL BLOOD PO2 71.4 mmHg (80-100); ARTERIAL BLOOD TOTAL CO2 32.3 mmol/L (23-27)
[2019-01-23 13:19] LABS: ARTERIAL BLOOD FIO2 1.5L
[2019-01-23] MEDS: LORAZEPAM INJ 2 MG/1 ML VIAL IV PRN (14:45)
--- NOTE | 2019-01-23 15:09 | PDOC PROGRESS REPORT ---
Subjective Progress Note for:: 01/23/19 Subjective:: No adverse events overnight. Condition remains essentially unchanged. We leave him off BiPAP for extended periods and he is not able to ventilate effectively for more than a few hours before he has to go back on BiPAP. Vital signs of otherwise been stable. Reason For Visit: RESPIRATORY FAILURE Physical Exam Vital Signs: Temp Pulse Resp BP Pulse Ox 97.8 F 66 34 H 108/68 90 L 01/23/19 14:00 01/23/19 14:00 01/23/19 14:00 01/23/19 14:00 01/23/19 14:00 Intake & Output 01/22/19 01/23/19 01/24/19 06:59 06:59 06:59 Intake Total 400 400 100 Output Total 1320 1340 900 Balance -920 -940 -800 Weight 102.7 kg 101.1 kg General appearance: PRESENT: disheveled, no apparent distress, obese Respiratory exam: PRESENT: decreased breath sounds, symmetrical, tachypnea. ABSENT: accessory muscle use, chest wall tenderness, crackles, prolonged expiratory phas, rales, rhonchi, wheezes Cardiovascular exam: PRESENT: RRR - Frequent bigeminy, +S1, +S2 Pulses: PRESENT: normal carotid pulses Vascular exam: PRESENT: normal capillary refill GI/Abdominal exam: PRESENT: normal bowel sounds, soft. ABSENT: distended, guarding, rebound, tenderness Extremities exam: ABSENT: clubbing, pedal edema Musculoskeletal exam: PRESENT: normal inspection. ABSENT: deformity Neurological exam: PRESENT: alert, awake, oriented to person, oriented to place Psychiatric exam: PRESENT: agitated Skin exam: PRESENT: dry, warm Results Laboratory Results: 01/23/19 03:57 01/23/19 03:57 01/23/19 01/23/19 01/23/19 03:10 03:57 03:57 WBC 9.4 RBC 3.77 L Hgb 11.8 L Hct 35.6 L MCV 94 MCH 31.4 MCHC 33.3 RDW 13.7 Plt Count 343 Seg Neutrophils % 86.2 H Lymphocytes % 8.3 L Monocytes % 5.3 Eosinophils % 0.0 Basophils % 0.2 Absolute Neutrophils 8.1 Absolute Lymphocytes 0.8 Absolute Monocytes 0.5 Absolute Eosinophils 0.0 Absolute Basophils 0.0 Carbonic Acid 2.00 H HCO3/H2CO3 Ratio 15:1 ABG pH 7.30 L ABG pCO2 66.5 H ABG pO2 106.3 H ABG HCO3 31.8 H ABG O2 Saturation 97.2 ABG Base Excess 3.5 FiO2 40% Sodium 140.3 Potassium 4.2 Chloride 102 Carbon Dioxide 33 H Anion Gap 5 BUN 31 H Creatinine 0.93 Est GFR ( Amer) > 60 Est GFR (Non-Af Amer) > 60 Glucose 111 H Calcium 9.3 Phosphorus 4.1 Magnesium 2.3 01/23/19 01/23/19 11:05 13:05 WBC RBC Hgb Hct MCV MCH MCHC RDW Plt Count Seg Neutrophils % Lymphocytes % Monocytes % Eosinophils % Basophils % Absolute Neutrophils Absolute Lymphocytes Absolute Monocytes Absolute Eosinophils Absolute Basophils Carbonic Acid 1.93 H 1.87 H HCO3/H2CO3 Ratio 15:1 16:1 ABG pH 7.30 L 7.31 L ABG pCO2 64.1 H 62.2 H ABG pO2 99.0 71.4 L ABG HCO3 30.6 H 30.4 H ABG O2 Saturation 96.7 92.5 L ABG Base Excess 2.6 2.5 FiO2 3L 1.5L Sodium Potassium Chloride Carbon Dioxide Anion Gap BUN Creatinine Est GFR ( Amer) Est GFR (Non-Af Amer) Glucose Calcium Phosphorus Magnesium 01/12/19 01/12/19 01/12/19 08:28 08:28 12:49 Creatine Kinase 34 L 30 L CK-MB (CK-2) 1.46 Troponin I < 0.012 NT-Pro-B Natriuret Pep 728 01/12/19 01/12/19 01/12/19 12:49 12:49 18:10 Creatine Kinase 27 L CK-MB (CK-2) Troponin I < 0.012 NT-Pro-B Natriuret Pep 859 01/12/19 01/13/19 01/13/19 18:10 00:26 00:26 Creatine Kinase 24 L CK-MB (CK-2) Troponin I < 0.012 < 0.012 NT-Pro-B Natriuret Pep 01/13/19 05:52 Creatine Kinase CK-MB (CK-2) Troponin I NT-Pro-B Natriuret Pep 287 Impressions: Head CT 01/12/19 00:00 IMPRESSION: NO ACUTE INTRACRANIAL FINDINGS. EVIDENCE OF ACUTE STROKE: NO. KUB X-Ray 01/12/19 11:51 IMPRESSION: NG tube tip overlies the body of the stomach, side port appears below the GE junction. Chest X-Ray 01/23/19 06:00 IMPRESSION: STABLE APPEARANCE OF THE CHEST. Assessment and Plan - Diagnosis (1) Acute and chronic respiratory failure with hypercapnia Is this a current diagnosis for this admission?: Yes Plan: He is essentially BiPAP dependent. His did agree to have a conversation with someone from hospice. I do not know if it is happened yet. We continue to provide ventilatory support in the hopes that he will be able to stay off the BiPAP longer and longer, but thus far has not demonstrated that he is going to be capable of that. (2) Alcohol abuse Is this a current diagnosis for this admission?: Yes Plan: He is been here for about a week and so it would be unlikely that he showing signs of withdrawal as a cause of his agitation, but not impossible. We do have him on some Ativan as needed. (3) Atrial fibrillation Qualifiers: Atrial fibrillation type: persistent Qualified Code(s): I48.1 - Persistent atrial fibrillation Is this a current diagnosis for this admission?: Yes Plan: Currently rate controlled on his home medications (4) Obesity (BMI 30-39.9) Is this a current diagnosis for this admission?: Yes Plan: Encouraged lifestyle modification (5) Fever Qualifiers: Fever type: unspecified Qualified Code(s): R50.9 - Fever, unspecified Is this a current diagnosis for this admission?: Yes Plan: He had a temperature earlier on the hospitalization, I have empirically started him on Zosyn in case he has aspirated on the BiPAP. If fever persists we will redraw all cultures, but thus far he has been afebrile. Chest x-ray shows improvement in the basilar opacity. - Time Time Spent with patient: 25-34 minutes
[2019-01-23] MEDS ORDERED: GLUCAGON,HUMAN RECOMB 1 MG INJ IM PRN (18:37)
[2019-01-23] MEDS ORDERED: DEXTROSE 40% GEL 15 GM TUBE PO PRN ×2 (18:37)
[2019-01-23] MEDS ORDERED: DEXTROSE 50%-WATER 25 GM/50 ML DISP.SYRIN IV PRN ×2 (18:37)
[2019-01-23] MEDS: INSULIN LISPRO 100 UNIT/ML 3 ML VIAL SUBCUT SCH (21:24)
[2019-01-23] MEDS ORDERED: CHLORPROMAZINE HCL INJ 25 MG/1 ML AMPULE ONE (22:53)
[2019-01-23] MEDS: CHLORPROMAZINE HCL INJ 25 MG/1 ML AMPULE IV PRN (22:59)
[2019-01-24] MEDS: METHYLPREDNISOLONE INJ 40 MG/1 ML SDV IV SCH ×3 (01:01→17:59)
[2019-01-24] MEDS: LORAZEPAM INJ 2 MG/1 ML VIAL IV PRN (02:54)
[2019-01-24 04:04] LABS: ABSOLUTE LYMPHOCYTES (AUTO) 0.8 10^3/uL (0.5-4.7); ABSOLUTE MONOCYTES (AUTO) 0.4 10^3/uL (0.1-1.4); BASOPHILS % (AUTO) 0.2 % (0-2); EOSINOPHILS % (AUTO) 0.1 % (0-6); HEMATOCRIT 36.2 % (37.9-51.0); HEMOGLOBIN 12.1 g/dL (13.5-17.0); LYMPHOCYTES % (AUTO) 8.8 % (13-45); MEAN CORPUSCULAR HEMOGLOBIN 31.5 pg (27.0-33.4); MEAN CORPUSCULAR HGB CONC 33.6 g/dL (32.0-36.0); MEAN CORPUSCULAR VOLUME 94 fl (80-97); MONOCYTES % (AUTO) 4.2 % (3-13); PLATELET COUNT 369 10^3/uL (150-450); RED BLOOD COUNT 3.85 10^6/uL (4.35-5.55); RED CELL DISTRIBUTION WIDTH 13.6 % (11.5-14.0); SEGMENTED NEUTROPHILS % (AUTO) 86.7 % (42-78); TOTAL CELLS COUNTED % (AUTO) 100 %; WHITE BLOOD COUNT 9.2 10^3/uL (4.0-10.5)
[2019-01-24 04:20] LABS: ANION GAP 6 (5-19); BLOOD UREA NITROGEN 29 mg/dL (7-20); CALCIUM 9.4 mg/dL (8.4-10.2); CARBON DIOXIDE 34 mmol/L (22-30); CHLORIDE 100 mmol/L (98-107); GLUCOSE 122 mg/dL (75-110); PHOSPHORUS 3.5 mg/dL (2.5-4.5); POTASSIUM 4.2 mmol/L (3.6-5.0)
[2019-01-24 04:30] LABS: ARTERIAL BLOOD BASE EXCESS 5.3 mmol/L; ARTERIAL BLOOD H2CO3 1.56 mmol/L (1.05-1.35); ARTERIAL BLOOD HCO3 31.3 mmol/L (20-24); ARTERIAL BLOOD O2 SATURATION 94.4 % (94-98); ARTERIAL BLOOD PCO2 51.8 mmHg (35-45); ARTERIAL BLOOD PO2 72.8 mmHg (80-100); ARTERIAL BLOOD TOTAL CO2 32.9 mmol/L (23-27)
[2019-01-24 04:32] LABS: ARTERIAL BLOOD FIO2 30%
[2019-01-24] MEDS ORDERED: CHLORPROMAZINE HCL INJ 25 MG/1 ML AMPULE ONE ×2 (04:48→17:52)
[2019-01-24] MEDS: CHLORPROMAZINE HCL INJ 25 MG/1 ML AMPULE IV PRN ×2 (04:53→18:03)
[2019-01-24] MEDS: PIPERACILLIN SODIUM/TAZOBACTAM 3.375 GM in NORMAL SALINE 100 ML IV SCH ×3 (05:55→18:01)
[2019-01-24] MEDS: BUPROPION HCL 100 MG TABLET NG SCH ×3 (05:55→22:33)
--- NOTE | 2019-01-24 08:51 | RADIOLOGY REPORT (SQ) ---
EXAM DESCRIPTION: CHEST SINGLE VIEW COMPLETED DATE/TIME: 01/24/2019 5:52 am REASON FOR STUDY: copd COMPARISON: 01/23/2019 FINDINGS: Single-view AP portable semi-upright. Stable appearance. Low lung volumes with diminished basilar aeration, subsegmental atelectasis. No pneumothorax. Stable cardiomediastinal silhouette. TECHNICAL DOCUMENTATION: JOB ID: [id number] Reading location - IP/workstation name: [email or web address]
[2019-01-24] MEDS: INSULIN LISPRO 100 UNIT/ML 3 ML VIAL SUBCUT SCH ×3 (10:22→17:58)
[2019-01-24] MEDS: POTASSIUM CHLORIDE 10 MEQ CAPSULE.ER PO SCH (10:40)
[2019-01-24] MEDS: METOPROLOL TARTRATE 50 MG TABLET NG SCH ×2 (10:40→22:32)
[2019-01-24] MEDS: OLANZAPINE 5 MG TABLET NG SCH ×2 (10:40→17:59)
[2019-01-24] MEDS: FUROSEMIDE 20 MG TABLET NG SCH (10:40)
[2019-01-24] MEDS: ENOXAPARIN SODIUM INJ 40 MG/0.4 ML DISP.SYRIN SUBCUT SCH (10:40)
[2019-01-24] MEDS: MONTELUKAST SODIUM 10 MG TABLET NG SCH (10:41)
--- NOTE | 2019-01-24 15:17 | PDOC PROGRESS REPORT ---
Subjective Progress Note for:: 01/24/19 Subjective:: No adverse events overnight. Today was the best he has looked since I took over his case this past Saturday. He was on about 2 L per nasal cannula this morning and his oxygen saturations were in the low to mid 90s. He appeared very comfortable. He was alert and oriented x4. He knew his full name, date of , that he was in the hospital, what town he was in, and that the president is [place]. He had eaten some solid food and was tolerating it well. He said he wanted to get out of bed so I have ordered physical therapy. Reason For Visit: RESPIRATORY FAILURE Physical Exam Vital Signs: Temp Pulse Resp BP Pulse Ox 97.8 F 66 27 H 124/82 96 01/24/19 12:00 01/24/19 12:00 01/24/19 12:00 01/24/19 12:00 01/24/19 12:00 Intake & Output 01/23/19 01/24/19 01/25/19 06:59 06:59 06:59 Intake Total 400 300 330 Output Total 1340 1805 285 Balance -940 -1505 45 Weight 101.1 kg 103.6 kg General appearance: PRESENT: disheveled, no apparent distress, obese Respiratory exam: PRESENT: decreased breath sounds, symmetrical. ABSENT: accessory muscle use, chest wall tenderness, crackles, prolonged expiratory phas, rales, rhonchi, tachypnea, wheezes Cardiovascular exam: PRESENT: RRR - Frequent bigeminy, +S1, +S2 Pulses: PRESENT: normal carotid pulses Vascular exam: PRESENT: normal capillary refill GI/Abdominal exam: PRESENT: normal bowel sounds, soft. ABSENT: distended, guar ding, rebound, tenderness Extremities exam: ABSENT: clubbing, pedal edema Musculoskeletal exam: PRESENT: normal inspection. ABSENT: deformity Neurological exam: PRESENT: alert, awake, oriented to person, oriented to place, oriented to time, oriented to situation Psychiatric exam: PRESENT: Pleasant and cooperative Skin exam: PRESENT: dry, warm Results Laboratory Results: 01/24/19 03:47 01/24/19 03:47 01/24/19 01/24/19 01/24/19 03:47 03:47 04:19 WBC 9.2 RBC 3.85 L Hgb 12.1 L Hct 36.2 L MCV 94 MCH 31.5 MCHC 33.6 RDW 13.6 Plt Count 369 Seg Neutrophils % 86.7 H Lymphocytes % 8.8 L Monocytes % 4.2 Eosinophils % 0.1 Basophils % 0.2 Absolute Neutrophils 8.0 Absolute Lymphocytes 0.8 Absolute Monocytes 0.4 Absolute Eosinophils 0.0 Absolute Basophils 0.0 Carbonic Acid 1.56 H HCO3/H2CO3 Ratio 20:1 ABG pH 7.40 ABG pCO2 51.8 H ABG pO2 72.8 L ABG HCO3 31.3 H ABG O2 Saturation 94.4 ABG Base Excess 5.3 FiO2 30% Sodium 139.6 Potassium 4.2 Chloride 100 Carbon Dioxide 34 H Anion Gap 6 BUN 29 H Creatinine 0.89 Est GFR ( Amer) > 60 Est GFR (Non-Af Amer) > 60 Glucose 122 H Calcium 9.4 Phosphorus 3.5 Magnesium 2.2 01/12/19 01/12/19 01/12/19 08:28 08:28 12:49 Creatine Kinase 34 L 30 L CK-MB (CK-2) 1.46 Troponin I < 0.012 NT-Pro-B Natriuret Pep 728 01/12/19 01/12/19 01/12/19 12:49 12:49 18:10 Creatine Kinase 27 L CK-MB (CK-2) Troponin I < 0.012 NT-Pro-B Natriuret Pep 859 01/12/19 01/13/19 01/13/19 18:10 00:26 00:26 Creatine Kinase 24 L CK-MB (CK-2) Troponin I < 0.012 < 0.012 NT-Pro-B Natriuret Pep 01/13/19 05:52 Creatine Kinase CK-MB (CK-2) Troponin I NT-Pro-B Natriuret Pep 287 Impressions: Head CT 01/12/19 00:00 IMPRESSION: NO ACUTE INTRACRANIAL FINDINGS. EVIDENCE OF ACUTE STROKE: NO. KUB X-Ray 01/12/19 11:51 IMPRESSION: NG tube tip overlies the body of the stomach, side port appears below the GE junction. Assessment and Plan - Diagnosis (1) Acute and chronic respiratory failure with hypercapnia Is this a current diagnosis for this admission?: Yes Plan: So far today he seems to have done fairly well on nasal cannula. We will continue BiPAP as needed. We will make sure that he has BiPAP at home. I know for sure that he has oxygen. We will have him seen by physical therapy. If he continues to remain stable, we can start planning his discharge. (2) Alcohol abuse Is this a current diagnosis for this admission?: Yes Plan: He is been here for about a week and so it would be unlikely that he showing signs of withdrawal as a cause of his agitation, but not impossible. We do have him on some Ativan as needed. (3) Atrial fibrillation Qualifiers: Atrial fibrillation type: persistent Qualified Code(s): I48.1 - Persistent atrial fibrillation Is this a current diagnosis for this admission?: Yes Plan: Currently rate controlled on his home medications (4) Obesity (BMI 30-39.9) Is this a current diagnosis for this admission?: Yes Plan: Encouraged lifestyle modification (5) Fever Qualifiers: Fever type: unspecified Qualified Code(s): R50.9 - Fever, unspecified Is this a current diagnosis for this admission?: Yes Plan: He had a temperature earlier on the hospitalization, I have empirically started him on Zosyn in case he has aspirated on the BiPAP. If fever persists we will redraw all cultures, but thus far he has been afebrile. Chest x-ray shows improvement in the basilar opacity. I will treat for a total of 7 days.
[2019-01-24] MEDS: DOCUSATE SODIUM 100 MG CAPSULE PO SCH (17:59)
[2019-01-24] MEDS: POLYETHYLENE GLYCOL 3350 POWDER 17 GM/1 PACKET PO SCH (17:59)
[2019-01-25] MEDS: PIPERACILLIN SODIUM/TAZOBACTAM 3.375 GM in NORMAL SALINE 100 ML IV SCH ×5 (00:51→23:13)
[2019-01-25] MEDS: LORAZEPAM INJ 2 MG/1 ML VIAL IV PRN ×2 (03:51→22:31)
[2019-01-25 04:59] LABS: ABSOLUTE EOSINOPHILS # (AUTO) 0.1 10^3/uL (0.0-0.6); ABSOLUTE LYMPHOCYTES (AUTO) 2.2 10^3/uL (0.5-4.7); ABSOLUTE MONOCYTES (AUTO) 0.8 10^3/uL (0.1-1.4); ABSOLUTE NEUT (AUTO) 8.3 10^3/uL (1.7-8.2); BASOPHILS % (AUTO) 0.2 % (0-2); EOSINOPHILS % (AUTO) 0.6 % (0-6); HEMATOCRIT 35.8 % (37.9-51.0); LYMPHOCYTES % (AUTO) 18.9 % (13-45); MEAN CORPUSCULAR HEMOGLOBIN 31.6 pg (27.0-33.4); MEAN CORPUSCULAR HGB CONC 33.5 g/dL (32.0-36.0); MEAN CORPUSCULAR VOLUME 94 fl (80-97); MONOCYTES % (AUTO) 7.3 % (3-13); PLATELET COUNT 376 10^3/uL (150-450); RED BLOOD COUNT 3.79 10^6/uL (4.35-5.55); RED CELL DISTRIBUTION WIDTH 13.8 % (11.5-14.0); TOTAL CELLS COUNTED % (AUTO) 100 %; WHITE BLOOD COUNT 11.4 10^3/uL (4.0-10.5)
[2019-01-25] MEDS: BUPROPION HCL 100 MG TABLET NG SCH ×3 (06:08→21:04)
[2019-01-25] MEDS: METHYLPREDNISOLONE INJ 40 MG/1 ML SDV IV SCH ×2 (06:08→17:30)
[2019-01-25 07:25] LABS: ARTERIAL BLOOD BASE EXCESS 9.5 mmol/L; ARTERIAL BLOOD H2CO3 2.22 mmol/L (1.05-1.35); ARTERIAL BLOOD HCO3 38.1 mmol/L (20-24); ARTERIAL BLOOD O2 SATURATION 97.9 % (94-98); ARTERIAL BLOOD PH 7.33 (7.35-7.45); ARTERIAL BLOOD PO2 117.9 mmHg (80-100); ARTERIAL BLOOD TOTAL CO2 40.4 mmol/L (23-27)
[2019-01-25 07:26] LABS: ARTERIAL BLOOD FIO2 3L
[2019-01-25 07:28] LABS: ARTERIAL BLOOD PCO2 73.8 mmHg (35-45)
[2019-01-25] MEDS: POTASSIUM CHLORIDE 10 MEQ CAPSULE.ER PO SCH (09:36)
[2019-01-25] MEDS: DOCUSATE SODIUM 100 MG CAPSULE PO SCH ×2 (09:36→17:31)
[2019-01-25] MEDS: FUROSEMIDE 20 MG TABLET NG SCH (09:36)
[2019-01-25] MEDS: OLANZAPINE 5 MG TABLET NG SCH ×2 (09:36→17:30)
[2019-01-25] MEDS: MONTELUKAST SODIUM 10 MG TABLET NG SCH (09:36)
[2019-01-25] MEDS: METOPROLOL TARTRATE 50 MG TABLET NG SCH ×2 (09:36→21:03)
[2019-01-25] MEDS: ENOXAPARIN SODIUM INJ 40 MG/0.4 ML DISP.SYRIN SUBCUT SCH (09:37)
[2019-01-25] MEDS: POLYETHYLENE GLYCOL 3350 POWDER 17 GM/1 PACKET PO SCH (17:30)
--- NOTE | 2019-01-25 17:53 | PDOC PROGRESS REPORT ---
Subjective Progress Note for:: 01/25/19 Subjective:: He refused his BiPAP last night while he slipped and this morning was acting encephalopathic again. A ABG was checked showed his PCO2 was elevated against we put him back on BiPAP. If he would just wear the BiPAP at night he would probably do well enough during the day that he would be able to be discharged but he continues to refuse it intermittently. Reason For Visit: RESPIRATORY FAILURE Physical Exam Vital Signs: Temp Pulse Resp BP Pulse Ox 97.5 F 58 L 14 106/72 93 01/25/19 11:28 01/25/19 14:00 01/25/19 12:00 01/25/19 11:28 01/25/19 12:00 Intake & Output 01/24/19 01/25/19 01/26/19 06:59 06:59 06:59 Intake Total 300 1270 250 Output Total 1805 1390 725 Balance -1505 -120 -475 Weight 103.6 kg 106.4 kg General appearance: PRESENT: disheveled, no apparent distress, obese Respiratory exam: PRESENT: decreased breath sounds, symmetrical. ABSENT: accessory muscle use, chest wall tenderness, crackles, prolonged expiratory phas, rales, rhonchi, tachypnea, wheezes Cardiovascular exam: PRESENT: RRR - Frequent bigeminy, +S1, +S2 Pulses: PRESENT: normal carotid pulses Vascular exam: PRESENT: normal capillary refill GI/Abdominal exam: PRESENT: normal bowel sounds, soft. ABSENT: distended, guarding, rebound, tenderness Extremities exam: ABSENT: clubbing, pedal edema Musculoskeletal exam: PRESENT: normal inspection. ABSENT: deformity Neurological exam: PRESENT: alert, awake, oriented to person, oriented to place, oriented to situation Psychiatric exam: PRESENT: Pleasant and cooperative Skin exam: PRESENT: dry, warm Results Laboratory Results: 01/25/19 04:24 01/24/19 03:47 01/25/19 01/25/19 04:24 06:58 WBC 11.4 H RBC 3.79 L Hgb 12.0 L Hct 35.8 L MCV 94 MCH 31.6 MCHC 33.5 RDW 13.8 Plt Count 376 Seg Neutrophils % 73.0 Lymphocytes % 18.9 Monocytes % 7.3 Eosinophils % 0.6 Basophils % 0.2 Absolute Neutrophils 8.3 H Absolute Lymphocytes 2.2 Absolute Monocytes 0.8 Absolute Eosinophils 0.1 Absolute Basophils 0.0 Carbonic Acid 2.22 H HCO3/H2CO3 Ratio 17:1 ABG pH 7.33 L ABG pCO2 73.8 H* ABG pO2 117.9 H ABG HCO3 38.1 H ABG O2 Saturation 97.9 ABG Base Excess 9.5 FiO2 3L 01/12/19 01/12/19 01/12/19 08:28 08:28 12:49 Creatine Kinase 34 L 30 L CK-MB (CK-2) 1.46 Troponin I < 0.012 NT-Pro-B Natriuret Pep 728 01/12/19 01/12/19 01/12/19 12:49 12:49 18:10 Creatine Kinase 27 L CK-MB (CK-2) Troponin I < 0.012 NT-Pro-B Natriuret Pep 859 01/12/19 01/13/19 01/13/19 18:10 00:26 00:26 Creatine Kinase 24 L CK-MB (CK-2) Troponin I < 0.012 < 0.012 NT-Pro-B Natriuret Pep 01/13/19 05:52 Creatine Kinase CK-MB (CK-2) Troponin I NT-Pro-B Natriuret Pep 287 Impressions: Head CT 01/12/19 00:00 IMPRESSION: NO ACUTE INTRACRANIAL FINDINGS. EVIDENCE OF ACUTE STROKE: NO. KUB X-Ray 01/12/19 11:51 IMPRESSION: NG tube tip overlies the body of the stomach, side port appears below the GE junction. Assessment and Plan - Diagnosis (1) Acute and chronic respiratory failure with hypercapnia Is this a current diagnosis for this admission?: Yes Plan: If he would use BiPAP whenever he sleeps, he would probably do fairly well, because he looks good yesterday. We will continue BiPAP as needed. We will make sure that he has BiPAP at home. I know for sure that he has oxygen. We will have him seen by physical therapy. If he continues to remain stable, we can start planning his discharge. (2) Alcohol abuse Is this a current diagnosis for this admission?: Yes Plan: He is been here for about a week and so it would be unlikely that he showing signs of withdrawal as a cause of his agitation, but not impossible. We do have him on some Ativan as needed. (3) Atrial fibrillation Qualifiers: Atrial fibrillation type: persistent Qualified Code(s): I48.1 - Persistent atrial fibrillation Is this a current diagnosis for this admission?: Yes Plan: Currently rate controlled on his home medications (4) Obesity (BMI 30-39.9) Is this a current diagnosis for this admission?: Yes Plan: Encouraged lifestyle modification (5) Fever Qualifiers: Fever type: unspecified Qualified Code(s): R50.9 - Fever, unspecified Is this a current diagnosis for this admission?: Yes Plan: He had a temperature earlier on the hospitalization, I have empirically started him on Zosyn in case he has aspirated on the BiPAP. If fever persists we will redraw all cultures, but thus far he has been afebrile. Chest x-ray shows impr ovement in the basilar opacity. I will treat for a total of 7 days. - Time Time Spent with patient: 15-24 minutes
[2019-01-25] MEDS ORDERED: CHLORPROMAZINE HCL INJ 25 MG/1 ML AMPULE ONE (23:18)
[2019-01-26] MEDS: LORAZEPAM INJ 2 MG/1 ML VIAL IV PRN (02:42)
[2019-01-26] MEDS: METHYLPREDNISOLONE INJ 40 MG/1 ML SDV IV SCH ×2 (05:36→18:01)
[2019-01-26] MEDS: BUPROPION HCL 100 MG TABLET NG SCH ×3 (05:36→21:39)
[2019-01-26] MEDS: PIPERACILLIN SODIUM/TAZOBACTAM 3.375 GM in NORMAL SALINE 100 ML IV SCH ×3 (05:36→18:10)
[2019-01-26] MEDS: FUROSEMIDE 20 MG TABLET NG SCH (09:42)
[2019-01-26] MEDS: ENOXAPARIN SODIUM INJ 40 MG/0.4 ML DISP.SYRIN SUBCUT SCH (09:42)
[2019-01-26] MEDS: DOCUSATE SODIUM 100 MG CAPSULE PO SCH ×2 (09:42→18:01)
[2019-01-26] MEDS: POTASSIUM CHLORIDE 10 MEQ CAPSULE.ER PO SCH (09:42)
[2019-01-26] MEDS: OLANZAPINE 5 MG TABLET NG SCH ×2 (09:42→18:01)
[2019-01-26] MEDS: METOPROLOL TARTRATE 50 MG TABLET NG SCH ×2 (09:42→21:38)
[2019-01-26] MEDS: MONTELUKAST SODIUM 10 MG TABLET NG SCH (09:42)
[2019-01-26] MEDS: POLYETHYLENE GLYCOL 3350 POWDER 17 GM/1 PACKET PO SCH (18:01)
--- NOTE | 2019-01-26 18:13 | PDOC PROGRESS REPORT ---
Subjective Progress Note for:: 01/26/19 Subjective:: He refused his BiPAP again last night. His PCO2 went up and he did not want to put it back on. Apparently he told his he wants to be discharged so that he can at home. Reason For Visit: RESPIRATORY FAILURE Physical Exam Vital Signs: Temp Pulse Resp BP Pulse Ox 98.0 F 71 33 H 87/40 L 98 01/26/19 09:56 01/26/19 14:00 01/26/19 13:01 01/26/19 09:56 01/26/19 12:09 Intake & Output 01/25/19 01/26/19 01/27/19 06:59 06:59 06:59 Intake Total 1270 905 520 Output Total 1390 2500 Balance -120 -1595 520 Weight 106.4 kg 107.8 kg General appearance: PRESENT: disheveled, no apparent distress, obese Respiratory exam: PRESENT: decreased breath sounds, symmetrical. ABSENT: accessory muscle use, chest wall tenderness, crackles, prolonged expiratory phas, rales, rhonchi, tachypnea, wheezes Cardiovascular exam: PRESENT: RRR - Frequent bigeminy, +S1, +S2 Pulses: PRESENT: normal carotid pulses Vascular exam: PRESENT: normal capillary refill GI/Abdominal exam: PRESENT: normal bowel sounds, soft. ABSENT: distended, guarding, rebound, tenderness Extremities exam: ABSENT: clubbing, pedal edema Musculoskeletal exam: PRESENT: normal inspection. ABSENT: deformity Neurological exam: PRESENT: alert, awake, oriented to person, oriented to place, oriented to situation Psychiatric exam: PRESENT: Pleasant and cooperative Skin exam: PRESENT: dry, warm Results Laboratory Results: 01/25/19 04:24 01/24/19 03:47 01/12/19 01/12/19 01/12/19 08:28 08:28 12:49 Creatine Kinase 34 L 30 L CK-MB (CK-2) 1.46 Troponin I < 0.012 NT-Pro-B Natriuret Pep 728 01/12/19 01/12/19 01/12/19 12:49 12:49 18:10 Creatine Kinase 27 L CK-MB (CK-2) Troponin I < 0.012 NT-Pro-B Natriuret Pep 859 07/15/19 07/16/19 07/16/19 18:10 00:26 00:26 Creatine Kinase 24 L CK-MB (CK-2) Troponin I < 0.012 < 0.012 NT-Pro-B Natriuret Pep 01/13/19 05:52 Creatine Kinase CK-MB (CK-2) Troponin I NT-Pro-B Natriuret Pep 287 Impressions: Head CT 01/12/19 00:00 IMPRESSION: NO ACUTE INTRACRANIAL FINDINGS. EVIDENCE OF ACUTE STROKE: NO. KUB X-Ray 01/12/19 11:51 IMPRESSION: NG tube tip overlies the body of the stomach, side port appears below the GE junction. Assessment and Plan - Diagnosis (1) Acute and chronic respiratory failure with hypercapnia Is this a current diagnosis for this admission?: Yes Plan: His was wanting to him to come home on palliative care, but that was as suming that he was going to do BiPAP. Now he apparently does not want to do BiPAP. His is not been in for us to have a chance to all sit down together and talk about his wishes and his prognosis. We are going to try to make that happen in the next day or so. (2) Alcohol abuse Is this a current diagnosis for this admission?: Yes Plan: He is been here for about a week and so it would be unlikely that he showing signs of withdrawal as a cause of his agitation, but not impossible. We do have him on some Ativan as needed. (3) Atrial fibrillation Qualifiers: Atrial fibrillation type: persistent Qualified Code(s): I48.1 - Persistent atrial fibrillation Is this a current diagnosis for this admission?: Yes Plan: Currently rate controlled on his home medications (4) Obesity (BMI 30-39.9) Is this a current diagnosis for this admission?: Yes Plan: Encouraged lifestyle modification (5) Fever Qualifiers: Fever type: unspecified Qualified Code(s): R50.9 - Fever, unspecified Is this a current diagnosis for this admission?: Yes Plan: He had a temperature earlier on the hospitalization, I have empirically started him on Zosyn in case he has aspirated on the BiPAP. If fever persists we will redraw all cultures, but thus far he has been afebrile. Chest x-ray shows improvement in the basilar opacity. I will treat for a total of 7 days. Will likely discontinue antibiotics tomorrow. - Time Time Spent with patient: 15-24 minutes
[2019-01-27] MEDS: LORAZEPAM INJ 2 MG/1 ML VIAL IV PRN (00:28)
[2019-01-27] MEDS: PIPERACILLIN SODIUM/TAZOBACTAM 3.375 GM in NORMAL SALINE 100 ML IV SCH ×3 (00:28→11:51)
[2019-01-27] MEDS: BUPROPION HCL 100 MG TABLET NG SCH ×3 (05:47→21:31)
[2019-01-27] MEDS: METHYLPREDNISOLONE INJ 40 MG/1 ML SDV IV SCH ×2 (05:47→17:45)
[2019-01-27] MEDS: ENOXAPARIN SODIUM INJ 40 MG/0.4 ML DISP.SYRIN SUBCUT SCH (11:51)
[2019-01-27] MEDS: DOCUSATE SODIUM 100 MG CAPSULE PO SCH ×2 (11:52→17:46)
[2019-01-27] MEDS: POTASSIUM CHLORIDE 10 MEQ CAPSULE.ER PO SCH (11:52)
[2019-01-27] MEDS: MONTELUKAST SODIUM 10 MG TABLET NG SCH (11:53)
[2019-01-27] MEDS: FUROSEMIDE 20 MG TABLET NG SCH (11:53)
[2019-01-27] MEDS: OLANZAPINE 5 MG TABLET NG SCH ×2 (11:53→17:45)
[2019-01-27] MEDS: METOPROLOL TARTRATE 50 MG TABLET NG SCH ×2 (12:03→21:31)
[2019-01-27] MEDS: POLYETHYLENE GLYCOL 3350 POWDER 17 GM/1 PACKET PO SCH (17:46)
--- NOTE | 2019-01-27 19:43 | PDOC PROGRESS REPORT ---
Subjective Progress Note for:: 01/27/19 Subjective:: He was not wanting to wear his BiPAP again last night but put it on this morning when he was taking a nap. His mental status is better after he sleeps with his BiPAP at home. He finally got some resolution on his disposition today, with his agreed to take him home on palliative care with home health. Reason For Visit: RESPIRATORY FAILURE Physical Exam Vital Signs: Temp Pulse Resp BP Pulse Ox 97.1 F 69 12 107/62 92 01/27/19 14:19 01/27/19 14:00 01/27/19 12:09 01/27/19 07:40 01/27/19 12:09 Intake & Output 01/26/19 01/27/19 01/28/19 06:59 06:59 06:59 Intake Total 905 1160 1180 Output Total 2500 1075 2900 Balance -1595 85 -1720 Weight 107.8 kg 94.3 kg General appearance: PRESENT: disheveled, no apparent distress, obese Respiratory exam: PRESENT: decreased breath sounds, symmetrical. ABSENT: accessory muscle use, chest wall tenderness, crackles, prolonged expiratory phas, rales, rhonchi, tachypnea, wheezes Cardiovascular exam: PRESENT: RRR - Frequent bigeminy, +S1, +S2 Pulses: PRESENT: normal carotid pulses Vascular exam: PRESENT: normal capillary refill GI/Abdominal exam: PRESENT: normal bowel sounds, soft. ABSENT: distended, guarding, rebound, tenderness Extremities exam: ABSENT: clubbing, pedal edema Musculoskeletal exam: PRESENT: normal inspection. ABSENT: deformity Neurological exam: PRESENT: alert, awake, oriented to person, oriented to place, oriented to situation Psychiatric exam: PRESENT: Pleasant and cooperative Skin exam: PRESENT: dry, warm Results Laboratory Results: 01/25/19 04:24 01/24/19 03:47 01/12/19 01/12/19 01/12/19 08:28 08:28 12:49 Creatine Kinase 34 L 30 L CK-MB (CK-2) 1.46 Troponin I < 0.012 NT-Pro-B Natriuret Pep 728 01/12/19 01/12/19 01/12/19 12:49 12:49 18:10 Creatine Kinase 27 L CK-MB (CK-2) Troponin I < 0.012 NT-Pro-B Natriuret Pep 859 01/12/19 01/13/19 01/13/19 18:10 00:26 00:26 Creatine Kinase 24 L CK-MB (CK-2) Troponin I < 0.012 < 0.012 NT-Pro-B Natriuret Pep 01/13/19 05:52 Creatine Kinase CK-MB (CK-2) Troponin I NT-Pro-B Natriuret Pep 287 Impressions: Head CT 01/12/19 00:00 IMPRESSION: NO ACUTE INTRACRANIAL FINDINGS. EVIDENCE OF ACUTE STROKE: NO. KUB X-Ray 01/12/19 11:51 IMPRESSION: NG tube tip overlies the body of the stomach, side port appears below the GE junction. Assessment and Plan - Diagnosis (1) Acute and chronic respiratory failure with hypercapnia Is this a current diagnosis for this admission?: Yes Plan: Plan to go home tomorrow with home health PT, and palliative care we will follow-up with him at home. (2) Alcohol abuse Is this a current diagnosis for this admission?: Yes Plan: He is been here for about a week and so it would be unlikely that he showing signs of withdrawal as a cause of his agitation, but not impossible. We do have him on some Ativan as needed. (3) Atrial fibrillation Qualifiers: Atrial fibrillation type: persistent Qualified Code(s): I48.1 - Persistent atrial fibrillation Is this a current diagnosis for this admission?: Yes Plan: Currently rate controlled on his home medications (4) Obesity (BMI 30-39.9) Is this a current diagnosis for this admission?: Yes Plan: Encouraged lifestyle modification (5) Fever Qualifiers: Fever type: unspecified Qualified Code(s): R50.9 - Fever, unspecified Is this a current diagnosis for this admission?: Yes Plan: We will discontinue his antibiotics. No more fevers. - Time Time Spent with patient: 15-24 minutes
[2019-01-28] MEDS: LORAZEPAM INJ 2 MG/1 ML VIAL IV PRN (00:01)
[2019-01-28] MEDS: METHYLPREDNISOLONE INJ 40 MG/1 ML SDV IV SCH (05:48)
[2019-01-28] MEDS: BUPROPION HCL 100 MG TABLET NG SCH ×2 (05:48→14:14)
[2019-01-28] MEDS: METOPROLOL TARTRATE 50 MG TABLET NG SCH (10:19)
[2019-01-28] MEDS: OLANZAPINE 5 MG TABLET NG SCH (10:19)
[2019-01-28] MEDS: FUROSEMIDE 20 MG TABLET NG SCH (10:19)
[2019-01-28] MEDS: MONTELUKAST SODIUM 10 MG TABLET NG SCH (10:19)
[2019-01-28] MEDS: ENOXAPARIN SODIUM INJ 40 MG/0.4 ML DISP.SYRIN SUBCUT SCH (10:25)
[2019-01-28] MEDS: DOCUSATE SODIUM 100 MG CAPSULE PO SCH (10:26)
[2019-01-28] MEDS: POTASSIUM CHLORIDE 10 MEQ CAPSULE.ER PO SCH (10:26)
--- NOTE | 2019-01-28 10:47 | PDOC DISCHARGE SUMMARY ---
General - Admit/Disc Date/PCP Admission Date/Primary Care Provider: 01/12/19 12:08 BROCK ETIENNE PA-C Discharge Date: 01/28/19 - Discharge Diagnosis (1) Acute and chronic respiratory failure with hypercapnia Is this a current diagnosis for this admission?: Yes Summary: He was intubated on the ventilator for 4 full days. He was extubated to BiPAP. He does not really want to wear his BiPAP, and whenever he does not wear it his PCO2 got elevated and he would get encephalopathic. When he wears his BiPAP when he sleeps he seems to do fine. (2) Alcohol abuse Is this a current diagnosis for this admission?: Yes Summary: Chronic and ongoing issue. He showed no signs of alcohol withdrawal. (3) Atrial fibrillation Is this a current diagnosis for this admission?: Yes Summary: Rate controlled but not anticoagulated because of his high fall risk (4) Obesity (BMI 30-39.9) Is this a current diagnosis for this admission?: Yes Summary: Strongly encouraged lifestyle modification, primarily through diet because his exercise tolerance is minimal (5) Fever Is this a current diagnosis for this admission?: Yes Summary: It is thought that he had aspirated. We could find no other evidence of infection. He received a full course of treatment for aspiration pneumonia. - Additional Information Resuscitation Status: Full Code Discharge Diet: Cardiac Discharge Activity: Balance Activity w/Rest, Slowly Increase Activity, Supervised Activity Prescriptions: Prednisone 10 mg PO ASDIR #48 [email or web address] Home Medications: Alprazolam [Xanax 0.5 mg Tablet] 0.5 mg PO Q8HP PRN 01/12/19 Aspirin [Ecotrin 81 mg EC Tablet] 81 mg PO DAILY 01/12/19 Bupropion HCl [Wellbutrin Xl 300mg 24hr Tablet] 300 mg PO QAM 01/12/19 Duloxetine HCl [Cymbalta] 60 mg PO Q12 01/12/19 Furosemide [Lasix 40 mg Tablet] 40 mg PO DAILY 01/12/19 Lisinopril [Zestril] 20 mg PO DAILY 01/12/19 Metoprolol Tartrate [Lopressor 50 mg Tablet] 50 mg PO Q12 01/12/19 Montelukast Sodium [Singulair 10 mg Tablet] 10 mg PO DAILY 01/12/19 Potassium Chloride [K-Tab ER] 10 meq PO DAILY 01/12/19 Tamsulosin HCl [Flomax 0.4 mg Cap.sr] 0.4 mg PO DAILY 01/12/19 Prednisone 10 mg PO ASDIR #48 [email or web address] 01/28/19 History of Present Illness History of Present Illness: KAMERON TRUJILLO is a 58 year old male with history of chronic smoking, COPD on home oxygen 4 L, history of congestive heart failure, atrial fibrillation not on anticoagulation, heavy alcohol user, obesity came to the emergency room with change in mental status. As per his he is acting right and I decided to bring him to the hospital for further evaluation. At the time of my examination nobody is at bedside. I tried to call [facility] but no response. As per the ER physician he came with altered mental status PCO2 is 128 he is not doing well on the BiPAP so they proceeded to intubate the patient. Hospital Course Hospital Course: He was intubated for 4 full days and remain on the ventilator. It took several days to wean him. When he was extubated he was put over to BiPAP. For couple of days his PCO2 remained elevated on BiPAP, but then it started coming down and his mental status will clear up. As long as he wears his BiPAP he does okay, but if he does not wear it and sleeps one night his PCO2 gets elevated he gets encephalopathic. When he has been lucid, he has expressed a desire to go home on hospice so that he can at home. He knows his lungs are not in good shape and he continues to smoke. His is not on board with this plan, however. She did agree to take him home on palliative care with home health. The patient requires a hospital bed due to requiring the head of his bed to be elevated more than 30 degrees most the time due to his COPD and heart failure. Patient also requires frequent changes in his body positioning due to this. He is going to go home with home health, retirement services, PT and OT, social media marketing analyst, hospital bed, bedside commode, and Rollator. His home BiPAP settings will be 12/6, with FiO2 of 35%. His labs and examination were reassuring and he was discharged in stable condition. Physical Exam Vital Signs: Temp Pulse Resp BP Pulse Ox 97.4 F 59 L 22 H 110/73 97 01/28/19 07:43 01/28/19 07:43 01/28/19 07:43 01/28/19 07:43 01/28/19 07:43 Intake & Output 01/27/19 01/28/19 01/29/19 06:59 06:59 06:59 Intake Total 1160 1180 Output Total 1074 3725 Balance 85 -2545 Weight 94.3 kg 97.1 kg General appearance: PRESENT: disheveled, no apparent distress, obese Respiratory exam: PRESENT: decreased breath sounds, symmetrical. ABSENT: accessory muscle use, chest wall tenderness, crackles, prolonged expiratory phas, rales, rhonchi, tachypnea, wheezes Cardiovascular exam: PRESENT: RRR - Frequent bigeminy, +S1, +S2 Pulses: PRESENT: normal carotid pulses Vascular exam: PRESENT: normal capillary refill GI/Abdominal exam: PRESENT: normal bowel sounds, soft. ABSENT: distended, guarding, rebound, tenderness Extremities exam: ABSENT: clubbing, pedal edema Musculoskeletal exam: PRESENT: normal inspection. ABSENT: deformity Neurological exam: PRESENT: alert, awake, oriented to person, oriented to place, oriented to situation Psychiatric exam: PRESENT: Pleasant and cooperative Skin exam: PRESENT: dry, warm Results Laboratory Results: 01/25/19 04:24 01/24/19 03:47 01/12/19 01/12/19 01/12/19 08:28 08:28 12:49 Creatine Kinase 34 L 30 L CK-MB (CK-2) 1.46 Troponin I < 0.012 NT-Pro-B Natriuret Pep 728 01/12/19 01/12/19 01/12/19 12:49 12:49 18:10 Creatine Kinase 27 L CK-MB (CK-2) Troponin I < 0.012 NT-Pro-B Natriuret Pep 859 01/12/19 01/13/19 01/13/19 18:10 00:26 00:26 Creatine Kinase 24 L CK-MB (CK-2) Troponin I < 0.012 < 0.012 NT-Pro-B Natriuret Pep 01/13/19 05:52 Creatine Kinase CK-MB (CK-2) Troponin I NT-Pro-B Natriuret Pep 287 Impressions: Head CT 01/12/19 00:00 IMPRESSION: NO ACUTE INTRACRANIAL FINDINGS. EVIDENCE OF ACUTE STROKE: NO. KUB X-Ray 01/12/19 11:51 IMPRESSION: NG tube tip overlies the body of the stomach, side port appears below the GE junction. Qualifiers - * PATIENT BEING DISCHARGED WITH ANY OF THE FOLLOWING DIAGNOSIS: No Acute Heart Failure - Is this a Heart Failure Patient?: No Plan Time Spent: Greater than 30 Minutes
[2019-01-28 15:14] VITALS: BP 105/65
--- NOTE | 2019-01-28 16:01 | PDOC PROGRESS REPORT ---
Subjective Progress Note for:: 01/14/19 Subjective:: Intubated and sedated Reason For Visit: RESPIRATORY FAILURE Physical Exam Vital Signs: Temp Pulse Resp BP Pulse Ox 98.6 F 82 37 H 147/96 H 96 01/14/19 08:00 01/14/19 08:00 01/14/19 08:00 01/14/19 08:00 01/14/19 09:01 Intake & Output 01/13/19 01/14/19 01/15/19 06:59 06:59 06:59 Intake Total 537 711 77 Output Total 620 2655 300 Balance -83 -1944 -223 Weight 110.3 kg 110.5 kg General appearance: PRESENT: no acute distress, disheveled, obese. ABSENT: cooperative Head exam: PRESENT: atraumatic, normocephalic Eye exam: PRESENT: conjunctiva pale. ABSENT: EOMI, nystagmus, periorbital swelling Mouth exam: PRESENT: dry mucosa, neck supple, tongue midline, other - ET tube Neck exam: ABSENT: carotid bruit, full ROM, JVD, lymphadenopathy, meningismus, tenderness, thyromegaly, tracheal deviation, tracheostomy, other Respiratory exam: PRESENT: decreased breath sounds, prolonged expiratory phas, rales, rhonchi, unlabored, wheezes. ABSENT: retraction, stridor Cardiovascular exam: PRESENT: tachycardia Pulses: PRESENT: normal radial pulses GI/Abdominal exam: PRESENT: hypoactive bowel sounds, soft. ABSENT: mass, tenderness Gentrourinary exam: PRESENT: indwelling catheter Extremities exam: PRESENT: pedal edema. ABSENT: calf tenderness, clubbing, joint swelling Musculoskeletal exam: ABSENT: ambulatory, deformity, dislocation Neurological exam: ABSENT: awake Skin exam: PRESENT: dry, warm Results Laboratory Results: 01/13/19 05:52 01/14/19 03:22 01/14/19 01/14/19 03:22 03:35 Carbonic Acid 1.46 H HCO3/H2CO3 Ratio 22:1 ABG pH 7.45 ABG pCO2 48.5 H ABG pO2 95.1 ABG HCO3 32.6 H ABG O2 Saturation 97.4 ABG Base Excess 7.4 FiO2 50% Sodium 139.5 Potassium 3.9 Chloride 102 Carbon Dioxide 33 H Anion Gap 5 BUN 12 Creatinine 0.87 Est GFR ( Amer) > 60 Est GFR (Non-Af Amer) > 60 Glucose 90 Calcium 9.0 Phosphorus 3.2 Magnesium 2.0 01/12/19 14:28 Tracheal Aspirate Gram Stain - Final 01/12/19 14:28 Tracheal Aspirate Sputum Culture - Final NORMAL JULIA 01/12/19 01/12/19 01/12/19 08:28 08:28 12:49 Creatine Kinase 34 L 30 L CK-MB (CK-2) 1.46 Troponin I < 0.012 NT-Pro-B Natriuret Pep 728 01/12/19 01/12/19 01/12/19 12:49 12:49 18:10 Creatine Kinase 27 L CK-MB (CK-2) Troponin I < 0.012 NT-Pro-B Natriuret Pep 859 01/12/19 01/13/19 01/13/19 18:10 00:26 00:26 Creatine Kinase 24 L CK-MB (CK-2) Troponin I < 0.012 < 0.012 NT-Pro-B Natriuret Pep 01/13/19 05:52 Creatine Kinase CK-MB (CK-2) Troponin I NT-Pro-B Natriuret Pep 287 Impressions: Head CT 01/12/19 00:00 IMPRESSION: NO ACUTE INTRACRANIAL FINDINGS. EVIDENCE OF ACUTE STROKE: NO. KUB X-Ray 01/12/19 11:51 IMPRESSION: NG tube tip overlies the body of the stomach, side port appears below the GE junction. Chest X-Ray 01/14/19 14:45 IMPRESSION: No significant change. Assessment & Plan - Diagnosis (1) Atrial fibrillation Qualifiers: Atrial fibrillation type: persistent Qualified Code(s): I48.1 - Persistent atrial fibrillation Is this a current diagnosis for this admission?: Yes Plan: Reinstitute home medication and anticoagulation (2) Acute and chronic respiratory failure with hypercapnia Is this a current diagnosis for this admission?: Yes Plan: PCO2 128 ventilation and oxygenate to keep patient near his baseline (3) Alcohol abuse Is this a current diagnosis for this admission?: Yes Plan: DT prophylaxis (4) Altered mental status Qualifiers: Altered mental status type: coma Coma depth: [place] coma 3-8 Coma timing: in the field (EMT or ambulance) Qualified Code(s): R40.2431 - [place] coma scale score 3-8, in the field [EMT or ambulance] Is this a current diagnosis for this admission?: Yes Plan: Based on presentation (5) CHF (congestive heart failure) Qualifiers: Heart failure type: right-sided Heart failure chronicity: acute on chronic Qualified Code(s): I50.813 - Acute on chronic right heart failure Is this a current diagnosis for this admission?: Yes Plan: Diuresis (6) COPD (chronic obstructive pulmonary disease) Qualifiers: Emphysema type: unspecified Is this a current diagnosis for this admission?: Yes Plan: Long-acting beta agonist plus long-acting muscarinic agent plus systemic steroids (7) Morbid obesity with BMI of 40.0-44.9, adult Is this a current diagnosis for this admission?: Yes Plan: Consider nutritional consult (8) Tobacco abuse Is this a current diagnosis for this admission?: Yes Plan: Transdermal nicotine - Time Total Critical Time (Minutes): 45
--- NOTE | 2019-01-28 16:03 | PDOC PROGRESS REPORT ---
Subjective Progress Note for:: 01/15/19 Subjective:: Intubated and sedated Reason For Visit: RESPIRATORY FAILURE Physical Exam Vital Signs: Temp Pulse Resp BP Pulse Ox 98.4 F 89 23 H 117/85 95 01/15/19 12:00 01/15/19 12:00 01/15/19 12:00 01/15/19 12:00 01/15/19 12:00 Intake & Output 01/14/19 01/15/19 01/16/19 06:59 06:59 06:59 Intake Total 711 629 200 Output Total 2655 1755 400 Balance -1944 -1126 -200 Weight 110.5 kg 109.6 kg General appearance: PRESENT: no acute distress, disheveled, obese. ABSENT: cooperative Head exam: PRESENT: atraumatic, normocephalic Eye exam: PRESENT: conjunctiva pale. ABSENT: EOMI, nystagmus, periorbital swelling Mouth exam: PRESENT: dry mucosa, neck supple, tongue midline, other - ET tube Neck exam: ABSENT: carotid bruit, full ROM, JVD, lymphadenopathy, meningismus, tenderness, thyromegaly, tracheal deviation, tracheostomy, other Respiratory exam: PRESENT: decreased breath sounds, prolonged expiratory phas, rales, rhonchi, unlabored, wheezes. ABSENT: retraction, stridor, tachypnea Cardiovascular exam: PRESENT: irregular rhythm, tachycardia Pulses: PRESENT: normal radial pulses GI/Abdominal exam: PRESENT: hypoactive bowel sounds, soft. ABSENT: distended, mass, tenderness Gentrourinary exam: PRESENT: indwelling catheter Extremities exam: PRESENT: pedal edema. ABSENT: calf tenderness, clubbing, joint swelling Musculoskeletal exam: ABSENT: deformity, dislocation Neurological exam: ABSENT: awake Skin exam: PRESENT: dry, warm Results Laboratory Results: 01/15/19 04:10 01/15/19 04:10 01/15/19 01/15/19 01/15/19 03:26 04:10 04:10 WBC 8.9 RBC 4.21 L Hgb 13.4 L Hct 40.1 MCV 95 MCH 31.9 MCHC 33.5 RDW 14.6 H Plt Count 244 Seg Neutrophils % 63.3 Lymphocytes % 22.9 Monocytes % 11.0 Eosinophils % 2.0 Basophils % 0.8 Absolute Neutrophils 5.7 Absolute Lymphocytes 2.0 Absolute Monocytes 1.0 Absolute Eosinophils 0.2 Absolute Basophils 0.1 Carbonic Acid 1.23 HCO3/H2CO3 Ratio 22:1 ABG pH 7.46 H ABG pCO2 40.8 ABG pO2 85.8 ABG HCO3 28.2 H ABG O2 Saturation 96.9 ABG Base Excess 4.1 FiO2 40% Sodium 139.1 Potassium 3.7 Chloride 102 Carbon Dioxide 30 Anion Gap 7 BUN 15 Creatinine 0.86 Est GFR ( Amer) > 60 Est GFR (Non-Af Amer) > 60 Glucose 93 Calcium 8.9 Phosphorus 5.4 H Magnesium 1.9 01/12/19 01/12/19 01/12/19 08:28 08:28 12:49 Creatine Kinase 34 L 30 L CK-MB (CK-2) 1.46 Troponin I < 0.012 NT-Pro-B Natriuret Pep 728 01/12/19 01/12/19 01/12/19 12:49 12:49 18:10 Creatine Kinase 27 L CK-MB (CK-2) Troponin I < 0.012 NT-Pro-B Natriuret Pep 859 01/12/19 01/13/19 01/13/19 18:10 00:26 00:26 Creatine Kinase 24 L CK-MB (CK-2) Troponin I < 0.012 < 0.012 NT-Pro-B Natriuret Pep 01/13/19 05:52 Creatine Kinase CK-MB (CK-2) Troponin I NT-Pro-B Natriuret Pep 287 Impressions: Head CT 01/12/19 00:00 IMPRESSION: NO ACUTE INTRACRANIAL FINDINGS. EVIDENCE OF ACUTE STROKE: NO. KUB X-Ray 01/12/19 11:51 IMPRESSION: NG tube tip overlies the body of the stomach, side port appears below the GE junction. Chest X-Ray 01/15/19 06:00 IMPRESSION: Continued bibasilar airspace disease likely scarring Assessment & Plan - Diagnosis (1) Atrial fibrillation Qualifiers: Atrial fibrillation type: persistent Qualified Code(s): I48.1 - Persistent atrial fibrillation Is this a current diagnosis for this admission?: Yes Plan: Reinstitute home medication and anticoagulation (2) Acute and chronic respiratory failure with hypercapnia Is this a current diagnosis for this admission?: Yes Plan: PCO2 128 ventilation and oxygenate to keep patient near his baseline (3) Alcohol abuse Is this a current diagnosis for this admission?: Yes Plan: DT prophylaxis (4) Altered mental status Qualifiers: Altered mental status type: coma Coma depth: [place] coma 3-8 Coma timing: in the field (EMT or ambulance) Qualified Code(s): R40.2431 - [place] coma scale score 3-8, in the field [EMT or ambulance] Is this a current diagnosis for this admission?: Yes Plan: Based on presentation as presently patient is sedated (5) COPD (chronic obstructive pulmonary disease) Qualifiers: Emphysema type: unspecified Is this a current diagnosis for this admission?: Yes Plan: Long-acting beta agonist plus long-acting muscarinic agent plus systemic steroids - Time Total Critical Time (Minutes): 45
--- NOTE | 2019-01-28 16:05 | PDOC PROGRESS REPORT ---
Subjective Progress Note for:: 01/16/19 Subjective:: Intubated and sedated Reason For Visit: RESPIRATORY FAILURE Physical Exam Vital Signs: Temp Pulse Resp BP Pulse Ox 96.7 F L 71 18 126/83 H 96 01/16/19 08:00 01/16/19 08:00 01/16/19 08:00 01/16/19 08:00 01/16/19 08:00 Intake & Output 01/15/19 01/16/19 01/17/19 06:59 06:59 06:59 Intake Total 629 1010 Output Total 1755 1385 150 Balance -1126 -375 -150 Weight 109.6 kg 108.3 kg General appearance: PRESENT: no acute distress, disheveled, obese. ABSENT: cooperative Head exam: PRESENT: atraumatic, normocephalic Eye exam: PRESENT: conjunctiva pale. ABSENT: nystagmus, periorbital swelling Mouth exam: PRESENT: dry mucosa, neck supple, tongue midline, other - ET tube Neck exam: ABSENT: carotid bruit, full ROM, JVD, lymphadenopathy, meningismus, tenderness, thyromegaly, tracheal deviation, tracheostomy, other Respiratory exam: PRESENT: decreased breath sounds, prolonged expiratory phas, rales, rhonchi, unlabored. ABSENT: retraction, stridor Cardiovascular exam: PRESENT: irregular rhythm, tachycardia Pulses: PRESENT: normal radial pulses GI/Abdominal exam: PRESENT: soft. ABSENT: distended, guarding, mass, tenderness Gentrourinary exam: PRESENT: indwelling catheter Extremities exam: PRESENT: pedal edema. ABSENT: calf tenderness, clubbing, joint swelling Musculoskeletal exam: ABSENT: ambulatory, deformity, dislocation Neurological exam: ABSENT: awake Skin exam: PRESENT: dry, warm Results Laboratory Results: 01/16/19 03:42 01/16/19 03:42 01/16/19 01/16/19 01/16/19 03:42 03:42 04:07 WBC 7.5 RBC 4.05 L Hgb 13.1 L Hct 38.6 MCV 95 MCH 32.3 MCHC 33.9 RDW 14.7 H Plt Count 242 Seg Neutrophils % 66.3 Lymphocytes % 19.2 Monocytes % 10.6 Eosinophils % 3.1 Basophils % 0.8 Absolute Neutrophils 5.0 Absolute Lymphocytes 1.4 Absolute Monocytes 0.8 Absolute Eosinophils 0.2 Absolute Basophils 0.1 Carbonic Acid 1.33 HCO3/H2CO3 Ratio 22:1 ABG pH 7.45 ABG pCO2 44.1 ABG pO2 78.3 L ABG HCO3 29.8 H ABG O2 Saturation 96.0 ABG Base Excess 5.1 FiO2 40% Sodium 138.1 Potassium 3.9 Chloride 102 Carbon Dioxide 31 H Anion Gap 5 BUN 16 Creatinine 0.87 Est GFR ( Amer) > 60 Est GFR (Non-Af Amer) > 60 Glucose 116 H Calcium 8.8 Phosphorus 4.5 Magnesium 2.2 01/12/19 01/12/19 01/12/19 08:28 08:28 12:49 Creatine Kinase 34 L 30 L CK-MB (CK-2) 1.46 Troponin I < 0.012 NT-Pro-B Natriuret Pep 728 01/12/19 01/12/19 01/12/19 12:49 12:49 18:10 Creatine Kinase 27 L CK-MB (CK-2) Troponin I < 0.012 NT-Pro-B Natriuret Pep 859 01/12/19 01/13/19 01/13/19 18:10 00:26 00:26 Creatine Kinase 24 L CK-MB (CK-2) Troponin I < 0.012 < 0.012 NT-Pro-B Natriuret Pep 01/13/19 05:52 Creatine Kinase CK-MB (CK-2) Troponin I NT-Pro-B Natriuret Pep 287 Impressions: Head CT 01/12/19 00:00 IMPRESSION: NO ACUTE INTRACRANIAL FINDINGS. EVIDENCE OF ACUTE STROKE: NO. KUB X-Ray 01/12/19 11:51 IMPRESSION: NG tube tip overlies the body of the stomach, side port appears below the GE junction. Chest X-Ray 01/15/19 06:00 IMPRESSION: Continued bibasilar airspace disease likely scarring Assessment & Plan - Diagnosis (1) Atrial fibrillation Qualifiers: Atrial fibrillation type: persistent Qualified Code(s): I48.1 - Persistent atrial fibrillation Is this a current diagnosis for this admission?: Yes Plan: stable at this time (2) Acute and chronic respiratory failure with hypercapnia Is this a current diagnosis for this admission?: Yes Plan: PCO2 128 ventilation and oxygenate to keep patient near his baseline (3) Alcohol abuse Is this a current diagnosis for this admission?: Yes Plan: DT prophylaxis (4) Altered mental status Qualifiers: Altered mental status type: coma Coma depth: [place] coma 3-8 Coma timing: in the field (EMT or ambulance) Qualified Code(s): R40.2431 - [place] coma scale score 3-8, in the field [EMT or ambulance] Is this a current diagnosis for this admission?: Yes Plan: Based on presentation as presently patient is sedated (5) COPD (chronic obstructive pulmonary disease) Qualifiers: Emphysema type: unspecified Is this a current diagnosis for this admission?: Yes Plan: Long-acting beta agonist plus long-acting muscarinic agent plus systemic steroids - Time Total Critical Time (Minutes): 45
--- NOTE | 2019-01-28 16:08 | PDOC PROGRESS REPORT ---
Subjective Progress Note for:: 01/17/19 Subjective:: Tachypnea, tachycardic during sedation vacation remains intubated Reason For Visit: RESPIRATORY FAILURE Physical Exam Vital Signs: Temp Pulse Resp BP Pulse Ox 99.3 F 84 34 H 115/78 95 01/17/19 08:00 01/17/19 09:00 01/17/19 09:00 01/17/19 08:00 01/17/19 09:32 Intake & Output 01/16/19 01/17/19 01/18/19 06:59 06:59 06:59 Intake Total 1010 969 19 Output Total 1385 1470 125 Balance -375 -501 -106 Weight 108.3 kg 108.9 kg 108.9 kg General appearance: PRESENT: no acute distress, disheveled, obese. ABSENT: c ooperative Head exam: PRESENT: atraumatic, normocephalic Eye exam: PRESENT: conjunctiva pale. ABSENT: nystagmus, periorbital swelling Mouth exam: PRESENT: dry mucosa, neck supple, tongue midline, other - ET tube Neck exam: ABSENT: carotid bruit, full ROM, JVD, lymphadenopathy, meningismus, tenderness, thyromegaly, tracheal deviation, tracheostomy, other Respiratory exam: PRESENT: decreased breath sounds, prolonged expiratory phas, rales, rhonchi, unlabored. ABSENT: retraction, stridor Cardiovascular exam: PRESENT: irregular rhythm, tachycardia Pulses: PRESENT: normal radial pulses GI/Abdominal exam: PRESENT: hypoactive bowel sounds, soft. ABSENT: mass, tenderness Gentrourinary exam: PRESENT: indwelling catheter Extremities exam: PRESENT: pedal edema. ABSENT: calf tenderness, clubbing, joint swelling Musculoskeletal exam: ABSENT: ambulatory, deformity, dislocation Neurological exam: PRESENT: altered Psychiatric exam: PRESENT: agitated Focused psych exam: PRESENT: internal stimuli Skin exam: PRESENT: dry, warm Results Laboratory Results: 01/17/19 03:51 01/17/19 03:51 01/17/19 01/17/19 01/17/19 03:51 03:51 04:18 WBC 9.2 RBC 4.18 L Hgb 13.4 L Hct 40.0 MCV 96 MCH 32.0 MCHC 33.5 RDW 14.5 H Plt Count 270 Seg Neutrophils % 67.2 Lymphocytes % 17.4 Monocytes % 11.5 Eosinophils % 3.2 Basophils % 0.7 Absolute Neutrophils 6.2 Absolute Lymphocytes 1.6 Absolute Monocytes 1.1 Absolute Eosinophils 0.3 Absolute Basophils 0.1 Carbonic Acid 1.23 HCO3/H2CO3 Ratio 22:1 ABG pH 7.44 ABG pCO2 40.9 ABG pO2 68.6 L ABG HCO3 27.1 H ABG O2 Saturation 94.3 ABG Base Excess 2.7 FiO2 40% Sodium 137.8 Potassium 4.2 Chloride 103 Carbon Dioxide 29 Anion Gap 6 BUN 20 Creatinine 0.88 Est GFR ( Amer) > 60 Est GFR (Non-Af Amer) > 60 Glucose 106 Calcium 9.0 Phosphorus 4.3 Magnesium 2.2 01/12/19 09:40 Blood Blood Culture - Final NO GROWTH IN 5 DAYS 01/12/19 08:52 Blood Blood Culture - Final NO GROWTH IN 5 DAYS 01/12/19 01/12/19 01/12/19 08:28 08:28 12:49 Creatine Kinase 34 L 30 L CK-MB (CK-2) 1.46 Troponin I < 0.012 NT-Pro-B Natriuret Pep 728 01/12/19 01/12/19 01/12/19 12:49 12:49 18:10 Creatine Kinase 27 L CK-MB (CK-2) Troponin I < 0.012 NT-Pro-B Natriuret Pep 859 01/12/19 01/13/19 01/13/19 18:10 00:26 00:26 Creatine Kinase 24 L CK-MB (CK-2) Troponin I < 0.012 < 0.012 NT-Pro-B Natriuret Pep 01/13/19 05:52 Creatine Kinase CK-MB (CK-2) Troponin I NT-Pro-B Natriuret Pep 287 Impressions: Head CT 01/12/19 00:00 IMPRESSION: NO ACUTE INTRACRANIAL FINDINGS. EVIDENCE OF ACUTE STROKE: NO. KUB X-Ray 01/12/19 11:51 IMPRESSION: NG tube tip overlies the body of the stomach, side port appears below the GE junction. Chest X-Ray 01/17/19 06:00 IMPRESSION: NO SIGNIFICANT INTERVAL CHANGE. Assessment & Plan - Diagnosis (1) Atrial fibrillation Qualifiers: Atrial fibrillation type: persistent Qualified Code(s): I48.1 - Persistent atrial fibrillation Is this a current diagnosis for this admission?: Yes Plan: stable at this time (2) Acute and chronic respiratory failure with hypercapnia Is this a current diagnosis for this admission?: Yes Plan: Slowly improving (3) Alcohol abuse Is this a current diagnosis for this admission?: Yes Plan: No evidence of DTs at this time (4) Altered mental status Qualifiers: Altered mental status type: coma Coma depth: [place] coma 3-8 Coma timing : in the field (EMT or ambulance) Qualified Code(s): R40.2431 - [place] coma scale score 3-8, in the field [EMT or ambulance] Is this a current diagnosis for this admission?: Yes Plan: Based on presentation as presently patient is sedated (5) COPD (chronic obstructive pulmonary disease) Qualifiers: Emphysema type: unspecified Is this a current diagnosis for this admission?: Yes Plan: Long-acting beta agonist plus long-acting muscarinic agent plus systemic steroids - Time Total Critical Time (Minutes): 45
--- NOTE | 2019-01-28 16:11 | PDOC PROGRESS REPORT ---
Subjective Progress Note for:: 01/18/19 Subjective:: Respiratory rate, minute ventilation, FiO2 airway pressures successful extubation will proceed with extubation Reason For Visit: RESPIRATORY FAILURE Physical Exam Vital Signs: Temp Pulse Resp BP Pulse Ox 98.0 F 83 11 L 107/64 100 01/18/19 08:00 01/18/19 10:00 01/18/19 10:58 01/18/19 10:58 01/18/19 11:26 Intake & Output 01/17/19 01/18/19 01/19/19 06:59 06:59 06:59 Intake Total 392 818 0547 Output Total 1470 1290 175 Balance -501 662 2864 Weight 108.9 kg 106.6 kg General appearance: PRESENT: no acute distress, disheveled, obese Head exam: PRESENT: atraumatic, normocephalic Eye exam: PRESENT: conjunctiva pale, EOMI. ABSENT: nystagmus, periorbital s welling Mouth exam: PRESENT: dry mucosa, neck supple, tongue midline, other - ET tube in place Neck exam: ABSENT: carotid bruit, full ROM, JVD, lymphadenopathy, meningismus, tenderness, thyromegaly, tracheal deviation, tracheostomy, other Respiratory exam: PRESENT: decreased breath sounds, prolonged expiratory phas, rales, rhonchi, unlabored. ABSENT: retraction, stridor, tachypnea Cardiovascular exam: PRESENT: irregular rhythm, tachycardia Pulses: PRESENT: normal radial pulses GI/Abdominal exam: PRESENT: hypoactive bowel sounds, soft. ABSENT: mass, tenderness Gentrourinary exam: PRESENT: indwelling catheter Extremities exam: PRESENT: pedal edema. ABSENT: calf tenderness, clubbing, joint swelling Musculoskeletal exam: ABSENT: ambulatory, deformity, dislocation Neurological exam: PRESENT: altered Psychiatric exam: PRESENT: flat affect Focused psych exam: PRESENT: internal stimuli Skin exam: PRESENT: dry, warm Results Laboratory Results: 01/18/19 04:02 01/18/19 04:02 01/18/19 01/18/19 01/18/19 04:02 04:02 04:18 WBC 10.2 RBC 3.63 L Hgb 11.7 L Hct 34.7 L MCV 96 MCH 32.2 MCHC 33.7 RDW 14.5 H Plt Count 242 Seg Neutrophils % 62.2 Lymphocytes % 20.5 Monocytes % 14.4 H Eosinophils % 2.1 Basophils % 0.8 Absolute Neutrophils 6.3 Absolute Lymphocytes 2.1 Absolute Monocytes 1.5 H Absolute Eosinophils 0.2 Absolute Basophils 0.1 Carbonic Acid 1.37 H HCO3/H2CO3 Ratio 19:1 ABG pH 7.40 ABG pCO2 45.5 H ABG pO2 101.2 H ABG HCO3 27.2 H ABG O2 Saturation 97.6 ABG Base Excess 1.9 FiO2 45% Sodium 138.2 Potassium 4.3 Chloride 106 Carbon Dioxide 25 Anion Gap 7 BUN 31 H Creatinine 1.11 Est GFR ( Amer) > 60 Est GFR (Non-Af Amer) > 60 Glucose 93 Calcium 8.6 Phosphorus 5.0 H Magnesium 2.2 01/12/19 09:40 Blood Blood Culture - Final NO GROWTH IN 5 DAYS 01/12/19 08:52 Blood Blood Culture - Final NO GROWTH IN 5 DAYS 01/12/19 01/12/19 01/12/19 08:28 08:28 12:49 Creatine Kinase 34 L 30 L CK-MB (CK-2) 1.46 Troponin I < 0.012 NT-Pro-B Natriuret Pep 728 01/12/19 01/12/19 01/12/19 12:49 12:49 18:10 Creatine Kinase 27 L CK-MB (CK-2) Troponin I < 0.012 NT-Pro-B Natriuret Pep 859 01/12/19 01/13/19 01/13/19 18:10 00:26 00:26 Creatine Kinase 24 L CK-MB (CK-2) Troponin I < 0.012 < 0.012 NT-Pro-B Natriuret Pep 01/13/19 05:52 Creatine Kinase CK-MB (CK-2) Troponin I NT-Pro-B Natriuret Pep 287 Impressions: Head CT 01/12/19 00:00 IMPRESSION: NO ACUTE INTRACRANIAL FINDINGS. EVIDENCE OF ACUTE STROKE: NO. KUB X-Ray 01/12/19 11:51 IMPRESSION: NG tube tip overlies the body of the stomach, side port appears below the GE junction. Chest X-Ray 01/17/19 06:00 IMPRESSION: NO SIGNIFICANT INTERVAL CHANGE. Assessment & Plan - Diagnosis (1) Atrial fibrillation Qualifiers: Atrial fibrillation type: persistent Qualified Code(s): I48.1 - Persistent atrial fibrillation Is this a current diagnosis for this admission?: Yes Plan: stable at this time (2) Acute and chronic respiratory failure with hypercapnia Is this a current diagnosis for this admission?: Yes Plan: CPAP pressure support if tolerated we will extubate (3) Alcohol abuse Is this a current diagnosis for this admission?: Yes Plan: No evidence of DTs at this time (4) Altered mental status Qualifiers: Altered mental status type: coma Coma depth: [place] coma 3-8 Coma timing: in the field (EMT or ambulance) Qualified Code(s): R40.2431 - [place] coma scale score 3-8, in the field [EMT or ambulance] Is this a current diagnosis for this admission?: Yes Plan: Based on presentation as presently patient is sedated (5) COPD (chronic obstructive pulmonary disease) Qualifiers: Emphysema type: unspecified Is this a current diagnosis for this admission?: Yes Plan: Long-acting beta agonist plus long-acting muscarinic agent plus systemic steroids - Time Total Critical Time (Minutes): 50
--- NOTE | 2019-01-28 16:14 | PDOC PROGRESS REPORT ---
Subjective Progress Note for:: 01/19/19 Subjective:: On BiPAP borderline mental status Reason For Visit: RESPIRATORY FAILURE Physical Exam Vital Signs: Temp Pulse Resp BP Pulse Ox 99.3 F 91 14 103/54 L 91 L 01/19/19 08:00 01/19/19 08:00 01/19/19 08:00 01/19/19 08:00 01/19/19 08:19 Intake & Output 01/18/19 01/19/19 01/20/19 06:59 06:59 06:59 Intake Total 628 3940 Output Total 1290 2530 75 Balance -662 1410 -75 Weight 106.6 kg 105 kg General appearance: PRESENT: no acute distress, obese. ABSENT: cooperative, disheveled Head exam: PRESENT: atraumatic, normocephalic Eye exam: PRESENT: conjunctiva pale, EOMI. ABSENT: nystagmus, periorbital swelling, scleral icterus Mouth exam: PRESENT: dry mucosa, neck supple, tongue midline Neck exam: ABSENT: carotid bruit, full ROM, JVD, lymphadenopathy, meningismus, tenderness, thyromegaly, tracheal deviation, tracheostomy, other Respiratory exam: PRESENT: decreased breath sounds, prolonged expiratory phas, rales, rhonchi, unlabored. ABSENT: retraction, stridor Cardiovascular exam: PRESENT: RRR, +S1, +S2, tachycardia Pulses: PRESENT: normal radial pulses GI/Abdominal exam: PRESENT: hypoactive bowel sounds, soft. ABSENT: mass, tenderness Gentrourinary exam: PRESENT: indwelling catheter Extremities exam: PRESENT: pedal edema. ABSENT: calf tenderness, clubbing, joint swelling Musculoskeletal exam: ABSENT: ambulatory, deformity, dislocation Neurological exam: PRESENT: altered, awake Psychiatric exam: PRESENT: flat affect Focused psych exam: PRESENT: internal stimuli Skin exam: PRESENT: dry, warm Results Laboratory Results: 01/19/19 03:45 01/19/19 03:45 01/19/19 01/19/19 01/19/19 03:36 03:45 03:45 WBC 10.4 RBC 3.76 L Hgb 11.9 L Hct 35.8 L MCV 95 MCH 31.8 MCHC 33.3 RDW 14.1 H Plt Count 256 Seg Neutrophils % 64.1 Lymphocytes % 19.5 Monocytes % 12.2 Eosinophils % 3.5 Basophils % 0.7 Absolute Neutrophils 6.6 Absolute Lymphocytes 2.0 Absolute Monocytes 1.3 Absolute Eosinophils 0.4 Absolute Basophils 0.1 Carbonic Acid 1.38 H HCO3/H2CO3 Ratio 19:1 ABG pH 7.39 ABG pCO2 45.9 H ABG pO2 70.5 L ABG HCO3 27.4 H ABG O2 Saturation 94.0 ABG Base Excess 2.0 FiO2 35% Sodium 140.1 Potassium 4.1 Chloride 106 Carbon Dioxide 28 Anion Gap 6 BUN 21 H Creatinine 0.86 Est GFR ( Amer) > 60 Est GFR (Non-Af Amer) > 60 Glucose 98 Calcium 9.1 Phosphorus 4.1 Magnesium 2.1 01/12/19 01/12/19 01/12/19 08:28 08:28 12:49 Creatine Kinase 34 L 30 L CK-MB (CK-2) 1.46 Troponin I < 0.012 NT-Pro-B Natriuret Pep 728 01/12/19 01/12/19 01/12/19 12:49 12:49 18:10 Creatine Kinase 27 L CK-MB (CK-2) Troponin I < 0.012 NT-Pro-B Natriuret Pep 859 01/12/19 01/13/19 01/13/19 18:10 00:26 00:26 Creatine Kinase 24 L CK-MB (CK-2) Troponin I < 0.012 < 0.012 NT-Pro-B Natriuret Pep 01/13/19 05:52 Creatine Kinase CK-MB (CK-2) Troponin I NT-Pro-B Natriuret Pep 287 Impressions: Head CT 01/12/19 00:00 IMPRESSION: NO ACUTE INTRACRANIAL FINDINGS. EVIDENCE OF ACUTE STROKE: NO. KUB X-Ray 01/12/19 11:51 IMPRESSION: NG tube tip overlies the body of the stomach, side port appears below the GE junction. Chest X-Ray 01/19/19 06:00 IMPRESSION: STABLE APPEARANCE OF THE CHEST. SUPPORT DEVICES UNCHANGED. Assessment & Plan - Diagnosis (1) Atrial fibrillation Qualifiers: Atrial fibrillation type: persistent Qualified Code(s): I48.1 - Persistent atrial fibrillation Is this a current diagnosis for this admission?: Yes Plan: stable at this time (2) Acute and chronic respiratory failure with hypercapnia Is this a current diagnosis for this admission?: Yes Plan: Extubated to BiPAP (3) Alcohol abuse Is this a current diagnosis for this admission?: Yes Plan: No evidence of DTs at this time (4) Altered mental status Qualifiers: Altered mental status type: coma Coma depth: [place] coma 3-8 Coma timing: in the field (EMT or ambulance) Qualified Code(s): R40.2431 - [place] coma scale score 3-8, in the field [EMT or ambulance] Is this a current diagnosis for this admission?: Yes Plan: Based on presentation as presently patient is sedated (5) COPD (chronic obstructive pulmonary disease) Qualifiers: Emphysema type: unspecified Is this a current diagnosis for this admission?: Yes Plan: Long-acting beta agonist plus long-acting muscarinic agent plus systemic steroids - Time Total Critical Time (Minutes): 50
--- NOTE | 2019-01-28 16:18 | PDOC PROGRESS REPORT ---
Subjective Progress Note for:: 01/20/19 Subjective:: Difficulty tolerating BiPAP we will try AVAPS Reason For Visit: RESPIRATORY FAILURE Physical Exam Vital Signs: Temp Pulse Resp BP Pulse Ox 98.8 F 93 35 H 118/70 96 01/20/19 08:00 01/20/19 08:42 01/20/19 08:42 01/20/19 08:00 01/20/19 08:42 Intake & Output 01/19/19 01/20/19 01/21/19 06:59 06:59 06:59 Intake Total 3940 74 Output Total 2530 1530 75 Balance 1410 -1456 -75 Weight 105 kg 105 kg General appearance: PRESENT: no acute distress, disheveled, obese Head exam: PRESENT: atraumatic, normocephalic Eye exam: PRESENT: conjunctiva pale, EOMI. ABSENT: nystagmus Mouth exam: PRESENT: dry mucosa, neck supple, tongue midline Neck exam: ABSENT: carotid bruit, full ROM, JVD, lymphadenopathy, meningismus, tenderness, thyromegaly, tracheal deviation, tracheostomy, other Respiratory exam: PRESENT: decreased breath sounds, prolonged expiratory phas, rhonchi. ABSENT: retraction, stridor Cardiovascular exam: PRESENT: RRR, +S1, +S2, tachycardia Pulses: PRESENT: normal radial pulses GI/Abdominal exam: PRESENT: hypoactive bowel sounds, soft. ABSENT: mass, tenderness Gentrourinary exam: PRESENT: indwelling catheter Extremities exam: PRESENT: pedal edema. ABSENT: calf tenderness, clubbing, joint swelling Musculoskeletal exam: ABSENT: ambulatory, deformity, dislocation Neurological exam: PRESENT: altered, awake Psychiatric exam: PRESENT: flat affect Focused psych exam: PRESENT: internal stimuli Skin exam: PRESENT: dry, warm Results Laboratory Results: 01/20/19 03:37 01/20/19 03:37 01/19/19 01/19/19 01/20/19 12:50 15:30 03:37 WBC RBC Hgb Hct MCV MCH MCHC RDW Plt Count Seg Neutrophils % Lymphocytes % Monocytes % Eosinophils % Basophils % Absolute Neutrophils Absolute Lymphocytes Absolute Monocytes Absolute Eosinophils Absolute Basophils Carbonic Acid 1.71 H 1.38 H HCO3/H2CO3 Ratio 17:1 19:1 ABG pH 7.34 L 7.39 ABG pCO2 56.9 H 46.0 H ABG pO2 78.5 L 94.4 ABG HCO3 29.9 H 27.4 H ABG O2 Saturation 94.7 97.1 ABG Base Excess 2.9 2.0 FiO2 35% 35% Sodium 141.6 Potassium 4.4 Chloride 103 Carbon Dioxide 32 H Anion Gap 7 BUN 19 Creatinine 0.77 Est GFR ( Amer) > 60 Est GFR (Non-Af Amer) > 60 Glucose 86 Calcium 9.1 Phosphorus 5.7 H Magnesium 2.0 01/20/19 01/20/19 01/20/19 03:37 04:10 07:23 WBC 8.4 RBC 3.87 L Hgb 12.2 L Hct 37.1 L MCV 96 MCH 31.5 MCHC 32.9 RDW 14.0 Plt Count 255 Seg Neutrophils % 62.0 Lymphocytes % 21.2 Monocytes % 12.7 Eosinophils % 2.9 Basophils % 1.2 Absolute Neutrophils 5.2 Absolute Lymphocytes 1.8 Absolute Monocytes 1.1 Absolute Eosinophils 0.2 Absolute Basophils 0.1 Carbonic Acid 2.19 H 2.34 H HCO3/H2CO3 Ratio 14:1 14:1 ABG pH 7.26 L 7.25 L ABG pCO2 72.6 H* 77.6 H* ABG pO2 103.5 H 88.6 ABG HCO3 32.0 H 33.0 H ABG O2 Saturation 96.7 94.9 ABG Base Excess 2.9 3.3 FiO2 40% Sodium Potassium Chloride Carbon Dioxide Anion Gap BUN Creatinine Est GFR ( Amer) Est GFR (Non-Af Amer) Glucose Calcium Phosphorus Magnesium 01/12/19 01/12/19 01/12/19 08:28 08:28 12:49 Creatine Kinase 34 L 30 L CK-MB (CK-2) 1.46 Troponin I < 0.012 NT-Pro-B Natriuret Pep 728 01/12/19 01/12/19 01/12/19 12:49 12:49 18:10 Creatine Kinase 27 L CK-MB (CK-2) Troponin I < 0.012 NT-Pro-B Natriuret Pep 859 01/12/19 01/13/19 01/13/19 18:10 00:26 00:26 Creatine Kinase 24 L CK-MB (CK-2) Troponin I < 0.012 < 0.012 NT-Pro-B Natriuret Pep 01/13/19 05:52 Creatine Kinase CK-MB (CK-2) Troponin I NT-Pro-B Natriuret Pep 287 Impressions: Head CT 01/12/19 00:00 IMPRESSION: NO ACUTE INTRACRANIAL FINDINGS. EVIDENCE OF ACUTE STROKE: NO. KUB X-Ray 01/12/19 11:51 IMPRESSION: NG tube tip overlies the body of the stomach, side port appears below the GE junction. Chest X-Ray 01/19/19 06:00 IMPRESSION: STABLE APPEARANCE OF THE CHEST. SUPPORT DEVICES UNCHANGED. Assessment & Plan - Diagnosis (1) Atrial fibrillation Qualifiers: Atrial fibrillation type: persistent Qualified Code(s): I48.1 - Persistent atrial fibrillation Is this a current diagnosis for this admission?: Yes Plan: stable at this time (2) Acute and chronic respiratory failure with hypercapnia Is this a current diagnosis for this admission?: Yes Plan: Better on a AVAPS mental status still in question (3) Alcohol abuse Is this a current diagnosis for this admission?: Yes Plan: No evidence of DTs at this time (4) Altered mental status Qualifiers: Altered mental status type: coma Coma depth: [place] coma 3-8 Coma timing: in the field (EMT or ambulance) Qualified Code(s): R40.2431 - [place] coma scale score 3-8, in the field [EMT or ambulance] Is this a current diagnosis for this admission?: Yes Plan: Based presently patient is intermittently lethargic and flailing without stimulus (5) COPD (chronic obstructive pulmonary disease) Qualifiers: Emphysema type: unspecified Is this a current diagnosis for this admission?: Yes Plan: Long-acting beta agonist plus long-acting muscarinic agent plus systemic steroids - Time Total Critical Time (Minutes): 50
--- NOTE | 2019-01-28 16:21 | PDOC PROGRESS REPORT ---
Subjective Progress Note for:: 01/21/19 Subjective:: unchanged Reason For Visit: RESPIRATORY FAILURE Physical Exam Vital Signs: Temp Pulse Resp BP Pulse Ox 96.6 F L 71 13 117/85 98 01/21/19 08:00 01/21/19 08:12 01/21/19 08:12 01/21/19 08:00 01/21/19 08:12 Intake & Output 01/20/19 01/21/19 01/22/19 06:59 06:59 06:59 Intake Total 74 200 Output Total 1530 740 0 Balance -1456 -540 0 Weight 105 kg 102.2 kg General appearance: PRESENT: no acute distress, disheveled. ABSENT: cooperative Head exam: PRESENT: atraumatic, normocephalic Eye exam: PRESENT: conjunctiva pale, EOMI. ABSENT: nystagmus, periorbital swelling Mouth exam: PRESENT: dry mucosa, neck supple, tongue midline Neck exam: ABSENT: carotid bruit, full ROM, JVD, lymphadenopathy, meningismus, t enderness, thyromegaly, tracheal deviation, tracheostomy, other Respiratory exam: PRESENT: decreased breath sounds, prolonged expiratory phas, rhonchi, unlabored. ABSENT: retraction, stridor Cardiovascular exam: PRESENT: RRR, +S1, +S2 Pulses: PRESENT: normal radial pulses GI/Abdominal exam: PRESENT: hypoactive bowel sounds, soft. ABSENT: mass, tenderness Gentrourinary exam: PRESENT: indwelling catheter Extremities exam: PRESENT: pedal edema. ABSENT: calf tenderness, clubbing, joint swelling Musculoskeletal exam: ABSENT: ambulatory, deformity, dislocation Neurological exam: PRESENT: altered, awake Psychiatric exam: PRESENT: agitated, anxious Focused psych exam: PRESENT: internal stimuli, paranoid Skin exam: PRESENT: dry, warm Results Laboratory Results: 01/21/19 04:10 01/21/19 04:10 01/20/19 01/20/19 01/21/19 07:23 14:09 04:00 WBC RBC Hgb Hct MCV MCH MCHC RDW Plt Count Seg Neutrophils % Lymphocytes % Monocytes % Eosinophils % Basophils % Absolute Neutrophils Absolute Lymphocytes Absolute Monocytes Absolute Eosinophils Absolute Basophils Carbonic Acid 1.40 H 1.77 H HCO3/H2CO3 Ratio 20:1 15:1 ABG pH 7.40 7.29 L ABG pCO2 46.5 H 58.9 H ABG pO2 80.7 72.4 L ABG HCO3 28.2 H 27.6 H ABG O2 Saturation 95.8 92.5 L ABG Base Excess 2.8 0 FiO2 40% 35% 40% Sodium Potassium Chloride Carbon Dioxide Anion Gap BUN Creatinine Est GFR ( Amer) Est GFR (Non-Af Amer) Glucose Calcium Phosphorus Magnesium 01/21/19 01/21/19 04:10 04:10 WBC 8.0 RBC 3.87 L Hgb 12.3 L Hct 36.9 L MCV 95 MCH 31.7 MCHC 33.3 RDW 13.5 Plt Count 301 Seg Neutrophils % 88.0 H Lymphocytes % 9.0 L Monocytes % 2.3 L Eosinophils % 0.1 Basophils % 0.6 Absolute Neutrophils 7.1 Absolute Lymphocytes 0.7 Absolute Monocytes 0.2 Absolute Eosinophils 0.0 Absolute Basophils 0.0 Carbonic Acid HCO3/H2CO3 Ratio ABG pH ABG pCO2 ABG pO2 ABG HCO3 ABG O2 Saturation ABG Base Excess FiO2 Sodium 140.9 Potassium 5.1 H Chloride 103 Carbon Dioxide 29 Anion Gap 9 BUN 36 H Creatinine 0.99 Est GFR ( Amer) > 60 Est GFR (Non-Af Amer) > 60 Glucose 109 Calcium 9.4 Phosphorus 6.5 H Magnesium 2.2 01/12/19 01/12/19 01/12/19 08:28 08:28 12:49 Creatine Kinase 34 L 30 L CK-MB (CK-2) 1.46 Troponin I < 0.012 NT-Pro-B Natriuret Pep 728 01/12/19 01/12/19 01/12/19 12:49 12:49 18:10 Creatine Kinase 27 L CK-MB (CK-2) Troponin I < 0.012 NT-Pro-B Natriuret Pep 859 01/12/19 01/13/19 01/13/19 18:10 00:26 00:26 Creatine Kinase 24 L CK-MB (CK-2) Troponin I < 0.012 < 0.012 NT-Pro-B Natriuret Pep 01/13/19 05:52 Creatine Kinase CK-MB (CK-2) Troponin I NT-Pro-B Natriuret Pep 287 Impressions: Head CT 01/12/19 00:00 IMPRESSION: NO ACUTE INTRACRANIAL FINDINGS. EVIDENCE OF ACUTE STROKE: NO. KUB X-Ray 01/12/19 11:51 IMPRESSION: NG tube tip overlies the body of the stomach, side port appears below the GE junction. Chest X-Ray 01/21/19 06:00 IMPRESSION: Extubation. Low lung volumes with mild left basilar opacities, likely atelectasis. Assessment & Plan - Diagnosis (1) Atrial fibrillation Qualifiers: Atrial fibrillation type: persistent Qualified Code(s): I48.1 - Persistent atrial fibrillation Is this a current diagnosis for this admission?: Yes Plan: stable at this time (2) Acute and chronic respiratory failure with hypercapnia Is this a current diagnosis for this admission?: Yes Plan: Better on a AVAPS mental status improvement (3) Alcohol abuse Is this a current diagnosis for this admission?: Yes Plan: No evidence of DTs at this time (4) Altered mental status Qualifiers: Altered mental status type: coma Coma depth: [place] coma 3-8 Coma timing: in the field (EMT or ambulance) Qualified Code(s): R40.2431 - [place] coma scale score 3-8, in the field [EMT or ambulance] Is this a current diagnosis for this admission?: Yes Plan: slight improvement (5) COPD (chronic obstructive pulmonary disease) Qualifiers: Emphysema type: unspecified Is this a current diagnosis for this admission?: Yes Plan: Long-acting beta agonist plus long-acting muscarinic agent plus systemic steroids - Time Total Critical Time (Minutes): 45
--- NOTE | 2019-01-28 16:23 | PDOC PROGRESS REPORT ---
Subjective Progress Note for:: 01/22/19 Subjective:: Mental status improving Reason For Visit: RESPIRATORY FAILURE Physical Exam Vital Signs: Temp Pulse Resp BP Pulse Ox 97.2 F 69 22 H 108/75 86 L 01/22/19 08:00 01/22/19 10:00 01/22/19 10:00 01/22/19 10:00 01/22/19 10:00 Intake & Output 01/21/19 01/22/19 01/23/19 06:59 06:59 06:59 Intake Total 300 300 Output Total 740 1320 290 Balance -440 -1020 -290 Weight 102.2 kg 102.7 kg General appearance: PRESENT: no acute distress, disheveled, obese Head exam: PRESENT: atraumatic, normocephalic Eye exam: PRESENT: conjunctiva pale, EOMI. ABSENT: nystagmus, periorbital swelling Mouth exam: PRESENT: dry mucosa, neck supple, tongue midline Neck exam: ABSENT: carotid bruit, full ROM, JVD, lymphadenopathy, meningismus, tenderness, thyromegaly, tracheal deviation, tracheostomy, other Respiratory exam: PRESENT: decreased breath sounds, prolonged expiratory phas, rales, rhonchi, unlabored. ABSENT: retraction, stridor, tachypnea Cardiovascular exam: PRESENT: RRR, +S1, +S2 Pulses: PRESENT: normal radial pulses GI/Abdominal exam: PRESENT: hypoactive bowel sounds, soft. ABSENT: mass, tenderness Gentrourinary exam: PRESENT: indwelling catheter Extremities exam: PRESENT: pedal edema. ABSENT: calf tenderness, clubbing, joint swelling Musculoskeletal exam: ABSENT: ambulatory, deformity, dislocation Neurological exam: PRESENT: altered, awake Psychiatric exam: PRESENT: depressed Skin exam: PRESENT: dry, warm Results Laboratory Results: 01/22/19 03:56 01/22/19 03:56 01/22/19 01/22/19 03:56 03:56 WBC 10.3 RBC 3.74 L Hgb 11.8 L Hct 35.0 L MCV 94 MCH 31.6 MCHC 33.7 RDW 13.7 Plt Count 337 Seg Neutrophils % 88.5 H Lymphocytes % 7.3 L Monocytes % 4.0 Eosinophils % 0.1 Basophils % 0.1 Absolute Neutrophils 9.1 H Absolute Lymphocytes 0.8 Absolute Monocytes 0.4 Absolute Eosinophils 0.0 Absolute Basophils 0.0 Sodium 137.6 Potassium 4.5 Chloride 101 Carbon Dioxide 29 Anion Gap 8 BUN 35 H Creatinine 0.89 Est GFR ( Amer) > 60 Est GFR (Non-Af Amer) > 60 Glucose 123 H Calcium 9.3 Phosphorus 4.5 D Magnesium 2.2 01/12/19 01/12/19 01/12/19 08:28 08:28 12:49 Creatine Kinase 34 L 30 L CK-MB (CK-2) 1.46 Troponin I < 0.012 NT-Pro-B Natriuret Pep 728 01/12/19 01/12/19 01/12/19 12:49 12:49 18:10 Creatine Kinase 27 L CK-MB (CK-2) Troponin I < 0.012 NT-Pro-B Natriuret Pep 859 01/12/19 01/13/19 01/13/19 18:10 00:26 00:26 Creatine Kinase 24 L CK-MB (CK-2) Troponin I < 0.012 < 0.012 NT-Pro-B Natriuret Pep 01/13/19 05:52 Creatine Kinase CK-MB (CK-2) Troponin I NT-Pro-B Natriuret Pep 287 Impressions: Head CT 01/12/19 00:00 IMPRESSION: NO ACUTE INTRACRANIAL FINDINGS. EVIDENCE OF ACUTE STROKE: NO. KUB X-Ray 01/12/19 11:51 IMPRESSION: NG tube tip overlies the body of the stomach, side port appears below the GE junction. Chest X-Ray 01/22/19 06:00 IMPRESSION: STABLE APPEARANCE. NO ACUTE RADIOGRAPHIC FINDING IN THE CHEST. Assessment & Plan - Diagnosis (1) Atrial fibrillation Qualifiers: Atrial fibrillation type: persistent Qualified Code(s): I48.1 - Persistent atrial fibrillation Is this a current diagnosis for this admission?: Yes Plan: stable at this time (2) Acute and chronic respiratory failure with hypercapnia Is this a current diagnosis for this admission?: Yes Plan: Better on a AVAPS mental status improvement (3) Alcohol abuse Is this a current diagnosis for this admission?: Yes Plan: No evidence of DTs at this time (4) Altered mental status Qualifiers: Altered mental status type: coma Coma depth: [place] coma 3-8 Coma timing: in the field (EMT or ambulance) Qualified Code(s): R40.2431 - [place] coma scale score 3-8, in the field [EMT or ambulance] Is this a current diagnosis for this admission?: Yes Plan: slight improvement (5) COPD (chronic obstructive pulmonary disease) Qualifiers: Emphysema type: unspecified Is this a current diagnosis for this admission?: Yes Plan: Long-acting beta agonist plus long-acting muscarinic agent plus systemic steroids - Time Total Critical Time (Minutes): 50
--- NOTE | 2019-01-28 16:26 | PDOC PROGRESS REPORT ---
Subjective Progress Note for:: 01/23/19 Subjective:: Lethargic but conversing appropriately Reason For Visit: RESPIRATORY FAILURE Physical Exam Vital Signs: Temp Pulse Resp BP Pulse Ox 97.2 F 68 14 122/92 H 97 01/23/19 08:00 01/23/19 08:00 01/23/19 08:00 01/23/19 08:00 01/23/19 08:00 Intake & Output 01/22/19 01/23/19 01/24/19 06:59 06:59 06:59 Intake Total 400 300 Output Total 1320 1340 90 Balance -920 -1040 -90 Weight 102.7 kg 101.1 kg General appearance: PRESENT: no acute distress, cooperative, disheveled, obese Head exam: PRESENT: atraumatic, normocephalic Eye exam: PRESENT: conjunctiva pale, EOMI. ABSENT: nystagmus, periorbital swelling Mouth exam: PRESENT: dry mucosa, neck supple, tongue midline Neck exam: ABSENT: carotid bruit, full ROM, JVD, lymphadenopathy, meningismus, tenderness, thyromegaly, tracheal deviation, tracheostomy, other Respiratory exam: PRESENT: decreased breath sounds, prolonged expiratory phas, rhonchi, unlabored. ABSENT: retraction, stridor Cardiovascular exam: PRESENT: RRR, +S1 Pulses: PRESENT: normal radial pulses GI/Abdominal exam: PRESENT: hypoactive bowel sounds, soft. ABSENT: mass, tenderness Gentrourinary exam: PRESENT: indwelling catheter Extremities exam: PRESENT: pedal edema. ABSENT: calf tenderness, clubbing, joint swelling Musculoskeletal exam: ABSENT: ambulatory, deformity, dislocation Neurological exam: PRESENT: awake, oriented to person, oriented to place, oriented to time, oriented to situation Psychiatric exam: PRESENT: appropriate affect, depressed Skin exam: PRESENT: dry, warm Results Laboratory Results: 01/23/19 03:57 01/23/19 03:57 01/23/19 01/23/19 01/23/19 03:10 03:57 03:57 WBC 9.4 RBC 3.77 L Hgb 11.8 L Hct 35.6 L MCV 94 MCH 31.4 MCHC 33.3 RDW 13.7 Plt Count 343 Seg Neutrophils % 86.2 H Lymphocytes % 8.3 L Monocytes % 5.3 Eosinophils % 0.0 Basophils % 0.2 Absolute Neutrophils 8.1 Absolute Lymphocytes 0.8 Absolute Monocytes 0.5 Absolute Eosinophils 0.0 Absolute Basophils 0.0 Carbonic Acid 2.00 H HCO3/H2CO3 Ratio 15:1 ABG pH 7.30 L ABG pCO2 66.5 H ABG pO2 106.3 H ABG HCO3 31.8 H ABG O2 Saturation 97.2 ABG Base Excess 3.5 FiO2 40% Sodium 140.3 Potassium 4.2 Chloride 102 Carbon Dioxide 33 H Anion Gap 5 BUN 31 H Creatinine 0.93 Est GFR ( Amer) > 60 Est GFR (Non-Af Amer) > 60 Glucose 111 H Calcium 9.3 Phosphorus 4.1 Magnesium 2.3 01/12/19 01/12/19 01/12/19 08:28 08:28 12:49 Creatine Kinase 34 L 30 L CK-MB (CK-2) 1.46 Troponin I < 0.012 NT-Pro-B Natriuret Pep 728 01/12/19 01/12/19 01/12/19 12:49 12:49 18:10 Creatine Kinase 27 L CK-MB (CK-2) Troponin I < 0.012 NT-Pro-B Natriuret Pep 859 01/12/19 01/13/19 01/13/19 18:10 00:26 00:26 Creatine Kinase 24 L CK-MB (CK-2) Troponin I < 0.012 < 0.012 NT-Pro-B Natriuret Pep 01/13/19 05:52 Creatine Kinase CK-MB (CK-2) Troponin I NT-Pro-B Natriuret Pep 287 Impressions: Head CT 01/12/19 00:00 IMPRESSION: NO ACUTE INTRACRANIAL FINDINGS. EVIDENCE OF ACUTE STROKE: NO. KUB X-Ray 01/12/19 11:51 IMPRESSION: NG tube tip overlies the body of the stomach, side port appears below the GE junction. Chest X-Ray 01/23/19 06:00 IMPRESSION: STABLE APPEARANCE OF THE CHEST. Assessment & Plan - Diagnosis (1) Atrial fibrillation Qualifiers: Atrial fibrillation type: persistent Qualified Code(s): I48.1 - Persistent atrial fibrillation Is this a current diagnosis for this admission?: Yes Plan: stable at this time (2) Acute and chronic respiratory failure with hypercapnia Is this a current diagnosis for this admission?: Yes Plan: Better on a AVAPS mental status improvement (3) Alcohol abuse Is this a current diagnosis for this admission?: Yes Plan: No evidence of DTs at this time (4) Altered mental status Qualifiers: Altered mental status type: coma Coma depth: [place] coma 3-8 Coma timing: in the field (EMT or ambulance) Qualified Code(s): R40.2431 - [place] coma scale score 3-8, in the field [EMT or ambulance] Is this a current diagnosis for this admission?: Yes Plan: slight improvement (5) COPD (chronic obstructive pulmonary disease) Qualifiers: Emphysema type: unspecified Is this a current diagnosis for this admission?: Yes Plan: Long-acting beta agonist plus long-acting muscarinic agent plus systemic steroids - Time Total Critical Time (Minutes): 45
--- NOTE | 2019-01-28 16:28 | PDOC PROGRESS REPORT ---
Subjective Progress Note for:: 01/24/19 Subjective:: conversing appropriately Reason For Visit: RESPIRATORY FAILURE Physical Exam Vital Signs: Temp Pulse Resp BP Pulse Ox 97.8 F 72 33 H 106/71 97 01/24/19 10:00 01/24/19 10:00 01/24/19 10:00 01/24/19 10:00 01/24/19 10:00 Intake & Output 01/23/19 01/24/19 01/25/19 06:59 06:59 06:59 Intake Total 400 300 210 Output Total 1340 1805 185 Balance -940 -1505 25 Weight 101.1 kg 103.6 kg General appearance: PRESENT: no acute distress, cooperative, disheveled, obese Head exam: PRESENT: atraumatic, normocephalic Eye exam: PRESENT: conjunctiva pale, EOMI. ABSENT: nystagmus, periorbital swelling Mouth exam: PRESENT: moist, neck supple, tongue midline Neck exam: ABSENT: carotid bruit, full ROM, JVD, lymphadenopathy, meningismus, tenderness, thyromegaly, tracheal deviation, tracheostomy, other Respiratory exam: PRESENT: decreased breath sounds, prolonged expiratory phas, rhonchi, unlabored. ABSENT: retraction, stridor Cardiovascular exam: PRESENT: RRR, +S1, +S2 Pulses: PRESENT: normal radial pulses GI/Abdominal exam: PRESENT: normal bowel sounds, soft. ABSENT: mass, tenderness Gentrourinary exam: PRESENT: indwelling catheter Extremities exam: PRESENT: pedal edema. ABSENT: calf tenderness, clubbing, joint swelling Musculoskeletal exam: ABSENT: deformity, dislocation Neurological exam: PRESENT: alert, awake Psychiatric exam: PRESENT: appropriate affect Skin exam: PRESENT: dry, warm Results Laboratory Results: 01/24/19 03:47 01/24/19 03:47 01/23/19 01/23/19 01/24/19 11:05 13:05 03:47 WBC RBC Hgb Hct MCV MCH MCHC RDW Plt Count Seg Neutrophils % Lymphocytes % Monocytes % Eosinophils % Basophils % Absolute Neutrophils Absolute Lymphocytes Absolute Monocytes Absolute Eosinophils Absolute Basophils Carbonic Acid 1.93 H 1.87 H HCO3/H2CO3 Ratio 15:1 16:1 ABG pH 7.30 L 7.31 L ABG pCO2 64.1 H 62.2 H ABG pO2 99.0 71.4 L ABG HCO3 30.6 H 30.4 H ABG O2 Saturation 96.7 92.5 L ABG Base Excess 2.6 2.5 FiO2 3L 1.5L Sodium 139.6 Potassium 4.2 Chloride 100 Carbon Dioxide 34 H Anion Gap 6 BUN 29 H Creatinine 0.89 Est GFR ( Amer) > 60 Est GFR (Non-Af Amer) > 60 Glucose 122 H Calcium 9.4 Phosphorus 3.5 Magnesium 2.2 01/24/19 01/24/19 03:47 04:19 WBC 9.2 RBC 3.85 L Hgb 12.1 L Hct 36.2 L MCV 94 MCH 31.5 MCHC 33.6 RDW 13.6 Plt Count 369 Seg Neutrophils % 86.7 H Lymphocytes % 8.8 L Monocytes % 4.2 Eosinophils % 0.1 Basophils % 0.2 Absolute Neutrophils 8.0 Absolute Lymphocytes 0.8 Absolute Monocytes 0.4 Absolute Eosinophils 0.0 Absolute Basophils 0.0 Carbonic Acid 1.56 H HCO3/H2CO3 Ratio 20:1 ABG pH 7.40 ABG pCO2 51.8 H ABG pO2 72.8 L ABG HCO3 31.3 H ABG O2 Saturation 94.4 ABG Base Excess 5.3 FiO2 30% Sodium Potassium Chloride Carbon Dioxide Anion Gap BUN Creatinine Est GFR ( Amer) Est GFR (Non-Af Amer) Glucose Calcium Phosphorus Magnesium 01/12/19 01/12/19 01/12/19 08:28 08:28 12:49 Creatine Kinase 34 L 30 L CK-MB (CK-2) 1.46 Troponin I < 0.012 NT-Pro-B Natriuret Pep 728 01/12/19 01/12/19 01/12/19 12:49 12:49 18:10 Creatine Kinase 27 L CK-MB (CK-2) Troponin I < 0.012 NT-Pro-B Natriuret Pep 859 01/12/19 01/13/19 01/13/19 18:10 00:26 00:26 Creatine Kinase 24 L CK-MB (CK-2) Troponin I < 0.012 < 0.012 NT-Pro-B Natriuret Pep 01/13/19 05:52 Creatine Kinase CK-MB (CK-2) Troponin I NT-Pro-B Natriuret Pep 287 Impressions: Head CT 01/12/19 00:00 IMPRESSION: NO ACUTE INTRACRANIAL FINDINGS. EVIDENCE OF ACUTE STROKE: NO. KUB X-Ray 01/12/19 11:51 IMPRESSION: NG tube tip overlies the body of the stomach, side port appears below the GE junction. Assessment & Plan - Diagnosis (1) Atrial fibrillation Qualifiers: Atrial fibrillation type: persistent Qualified Code(s): I48.1 - Persistent atrial fibrillation Is this a current diagnosis for this admission?: Yes Plan: stable at this time (2) Acute and chronic respiratory failure with hypercapnia Is this a current diagnosis for this admission?: Yes Plan: 2 L per nasal cannula: Mental status improvement (3) Alcohol abuse Is this a current diagnosis for this admission?: Yes (4) Altered mental status Qualifiers: Altered mental status type: coma Coma depth: [place] coma 3-8 Coma timing: in the field (EMT or ambulance) Qualified Code(s): R40.2431 - [place] coma scale score 3-8, in the field [EMT or ambulance] Is this a current diagnosis for this admission?: Yes Plan: He is at or near baseline (5) COPD (chronic obstructive pulmonary disease) Qualifiers: Emphysema type: unspecified Is this a current diagnosis for this admission?: Yes Plan: Long-acting beta agonist plus long-acting muscarinic agent plus systemic steroids - Time Total Critical Time (Minutes): 45
== END 2019-01-28 17:47 | disposition home health service (06) | DRG 207 ==
LOC: ER 07:56 → EH 12:08 → ICU 13:44 → 3W 01-24 20:09
PROVIDERS: ADMIT Internal Medicine; ATTEND Internal Medicine
PROC: 5A1955Z Respiratory Ventilation, Greater than 96 Consecutive Hours (ICD-10-PCS; principal; 2019-01-12)
PROC: 0BH17EZ Insertion of Endotracheal Airway into Trachea, Via Natural or Artificial Opening (ICD-10-PCS; 2019-01-12)
DX: J96.22 Acute and chronic respiratory failure with hypercapnia (principal); J69.0 Pneumonitis due to inhalation of food and vomit; I50.22 Chronic systolic (congestive) heart failure; E87.2 Acidosis; J96.21 Acute and chronic respiratory failure with hypoxia; J96.01 Acute respiratory failure with hypoxia; I48.91 Unspecified atrial fibrillation; Z99.81 Dependence on supplemental oxygen; F17.210 Nicotine dependence, cigarettes, uncomplicated; G47.30 Sleep apnea, unspecified; Z91.19 Patient's noncompliance with other medical treatment and regimen; K70.30 Alcoholic cirrhosis of liver without ascites; F10.10 Alcohol abuse, uncomplicated; Z87.09 Personal history of other diseases of the respiratory system; F32.9 Major depressive disorder, single episode, unspecified; R40.2431 Glasgow coma scale score 3-8, in the field [EMT or ambulance]; E66.9 Obesity, unspecified; J43.9 Emphysema, unspecified; Z78.1 Physical restraint status; Z53.29 Procedure and treatment not carried out because of patient's decision for other reasons; I11.0 Hypertensive heart disease with heart failure
CPT/HCPCS: 36415; 36600; 51702; 70450; 71045; 74018; 80048; 80053; 80061; 80307; 81001; 82550; 82553; 82803; 82962; 83036; 83605; 83735; 83880; 84100; 84443; 84478; 84484; 85025; 85610; 87040; 87070; 87086; 87205; 93005; 93010; 94002; 94003; 94640; 94660; 96374; 99291; B4155; C1758; J1650; J2060; J2543; J2704; J2920; J3010; J3230; J3490; J7030; J7050; J7620; S0164

== ENCOUNTER 2019-08-15 20:11 | Inpatient (IN) | payer BC ==
[~2019-08-15 20:11] MED LIST changes: -ROCURONIUM BROMIDE INJ 50 MG/5 ML VIAL IV ONE; +SUCCINYLCHOLINE CHLORIDE INJ 200 MG/10 ML VIAL ONE
[2019-08-15] MEDS ORDERED: ETOMIDATE INJ/PF 20 MG/10 ML SDV IV ONE (20:30)
[2019-08-15] MEDS ORDERED: SUCCINYLCHOLINE CHLORIDE INJ 200 MG/10 ML VIAL IV ONE (20:30)
[2019-08-15] MEDS ORDERED: LORAZEPAM INJ 2 MG/1 ML VIAL IV ONE ×2 (20:30→22:25)
[2019-08-15] MEDS ORDERED: PROPOFOL 1,000 MG/100 ML INFUS..BTL IV PRN (20:31)
[2019-08-15] MEDS ORDERED: VECURONIUM BROMIDE INJ 10 MG VIAL IV ONE ×2 (20:31→22:25)
[2019-08-15] MEDS ORDERED: NORMAL SALINE 500 ML IV ONE (21:05)
[2019-08-15 21:10] LABS: ALBUMIN 3.8 g/dL (3.5-5.0); ALKALINE PHOSPHATASE 101 U/L (38-126); ASPARTATE AMINO TRANSFERASE 22 U/L (17-59); BILIRUBIN,DIRECT 0.3 mg/dL (0.0-0.4); BILIRUBIN,TOTAL 0.3 mg/dL (0.2-1.3); BLOOD UREA NITROGEN 45 mg/dL (7-20); CALCIUM 8.7 mg/dL (8.4-10.2); CHLORIDE 92 mmol/L (98-107); GLUCOSE 220 mg/dL (75-110); TOTAL PROTEIN 7.5 g/dL (6.3-8.2)
[2019-08-15 21:12] LABS: ALCOHOL < 10 mg/dL (NONE DETECTED)
[2019-08-15 21:18] LABS: ANION GAP 12 (5-19)
[2019-08-15 21:19] LABS: ARTERIAL BLOOD BASE EXCESS 7.5 mmol/L; ARTERIAL BLOOD H2CO3 3.58 mmol/L (1.05-1.35); ARTERIAL BLOOD HCO3 41.1 mmol/L (20-24); ARTERIAL BLOOD O2 SATURATION 87.9 % (94-98); ARTERIAL BLOOD PO2 71.8 mmHg (80-100); ARTERIAL BLOOD TOTAL CO2 44.8 mmol/L (23-27)
[2019-08-15 21:22] LABS: NT PRO BNP 68 pg/mL (<125)
[2019-08-15 21:23] LABS: TROPONIN I < 0.012 ng/mL
[2019-08-15 21:24] LABS: CARBON DIOXIDE 36 mmol/L (22-30)
[2019-08-15 21:26] LABS: POTASSIUM 6.4 mmol/L (3.6-5.0)
[2019-08-15 21:26] LABS: ARTERIAL BLOOD FIO2 50%
[2019-08-15 21:27] LABS: ARTERIAL BLOOD PCO2 118.8 mmHg (35-45); ARTERIAL BLOOD PH 7.16 (7.35-7.45)
[2019-08-15] MEDS ORDERED: CALCIUM GLUCONATE 1000 MG/10 ML INJ IV ONE (21:31)
[2019-08-15] MEDS ORDERED: DEXTROSE 50%-WATER 25 GM/50 ML DISP.SYRIN IV ONE (21:32)
[2019-08-15] MEDS ORDERED: INSULIN REG, HUMAN 100 UNIT/ML 3 ML VIAL (PYX) IV ONE (21:32)
[2019-08-15] MEDS ORDERED: SODIUM BICARBONATE 8.4% INJ 50 MEQ/50 ML DISP.SYRIN IV ONE (21:37)
[2019-08-15] MEDS ORDERED: SODIUM POLYSTYRENE SULFONATE 15 GM/60 ML NG ONE (21:40)
--- NOTE | 2019-08-15 21:45 | ER Document Report ---
Entered by ANNY MAYEN SCRIBE 08/15/192024 Acting as scribe for:PRISCILA MCGOWAN IV, MD ED General - General Stated Complaint: UNRESPONSIVE Mode of Arrival: Stretcher Information source: Emergency Med Personnel Notes: This 58 year old male patient with a history of CHF and COPD brought in by EMS from home presents to the ED today with complaints of unresponsiveness. EMS reports that they were called out by patient's significant other who states that the patient was not feeling well today and that after they came home from the store, they took a nap and when she woke up she found the patient unresponsive. EMS states that patient was 66% on RA initially and that after they bagged him he came up to 90s O2 sat. EMS states that the patient's blood pressure was in the 90s systolic, but went they went to RSI, his blood pressure dropped to 70 systolic. EMS reports that the patient showed some response to painful stimuli en route and that his last blood pressure was in the 100s systolic. TRAVEL OUTSIDE OF THE [place] IN LAST 30 DAYS: No - Related Data Allergies/Adverse Reactions: No Known Allergies Allergy (Verified 10/21/17 13:20) Past Medical History - General Information source: Emergency Med Personnel, [facility] Records - Social History Smoking Status: Unknown if Ever Smoked Cigarette use (# per day): No Chew tobacco use (# tins/day): No Smoking Education Provided: No Family History: Reviewed & Not Pertinent, Hypertension - Past Medical History Cardiac Medical History: Reports: Hx Atrial Fibrillation, Hx Congestive Heart Failure, Hx Hypertension Pulmonary Medical History: Reports: Hx COPD - on 5L home O2, Hx Intubation - 11/11/18, Hx Respiratory Failure, Hx Sleep Apnea - noncompliant with CPAP Renal/ Medical History: Reports: Hx End Stage Renal Disease GI Medical History: Reports: 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 Psychiatric Medical History: Reports: Hx Depression - Immunizations Hx Pneumococcal Vaccination: 07/01/17 Physical Exam - Vital signs Vitals: Resp Pulse Ox 27 H 96 08/15/19 20:11 08/15/19 20:11 - General General appearance: Unresponsive - HEENT Head: Normocephalic, Atraumatic Eyes: Other - Eyes are closed Pupils: Pinpoint - Bilaterally - Respiratory Respiratory status: No respiratory distress Chest status: Nontender Breath sounds: Normal Chest palpation: Normal - Cardiovascular Rhythm: Irregularly irregular, Tachycardia Heart sounds: Normal auscultation Murmur: No Friction rub: No Gallop: None auscultated - Abdominal Inspection: Obese Distension: No distension Bowel sounds: Normal Tenderness: Nontender Organomegaly: No organomegaly - Back Back: Normal, Nontender - Extremities General upper extremity: Normal inspection General lower extremity: Normal inspection - Neurological Neuro grossly intact: No Hammond Coma Scale Eye Opening: None Hammond Coma Scale Verbal: None Hammond Coma Scale Motor: Withdraws to Pain Manjula Coma Scale Total: 6 - Skin Skin Temperature: Warm Skin Moisture: Dry Skin Color: Normal Course - Re-evaluation Re-evalutation: 08/16/19 01:37 Right 20-gauge EJ was placed by this MD at 2020 hrs. See procedure section for intubation and central line notes. - Vital Signs Vital signs: Temp Pulse Resp BP Pulse Ox 97.1 F 18 85/73 L 97 08/15/19 23:37 08/16/19 00:20 08/16/19 00:20 08/16/19 00:20 - Laboratory Result Diagrams: 08/15/19 20:37 08/15/19 20:37 Laboratory results interpreted by me: 08/15/19 08/15/19 08/15/19 20:27 20:37 20:37 WBC 12.5 H MCV 98 H MCHC 31.7 L RDW 15.0 H Lymph % (Auto) 10.6 L Absolute Neuts (auto) 10.0 H Seg Neutrophils % 80.5 H Carbonic Acid 3.58 H ABG pH 7.16 L* ABG pCO2 118.8 H* ABG pO2 71.8 L ABG HCO3 41.1 H ABG Total CO2 44.8 H ABG O2 Saturation 87.9 L Potassium 6.4 H* Chloride 92 L Carbon Dioxide 36 H BUN 45 H Creatinine 1.90 H Est GFR ( Amer) 44 L Est GFR (MDRD) Non-Af 36 L Glucose 220 H POC Glucose Urine Nitrite (Reflex) Leukocyte Esterase Rfl 08/15/19 08/15/19 21:30 23:33 WBC MCV MCHC RDW Lymph % (Auto) Absolute Neuts (auto) Seg Neutrophils % Carbonic Acid ABG pH ABG pCO2 ABG pO2 ABG HCO3 ABG Total CO2 ABG O2 Saturation Potassium Chloride Carbon Dioxide BUN Creatinine Est GFR ( Amer) Est GFR (MDRD) Non-Af Glucose POC Glucose 215 H Urine Nitrite (Reflex) POSITIVE H Leukocyte Esterase Rfl MODERATE H - 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, 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 Time consulted: 22:27 Reason for consultation: 08/15/19 22:29 hypercapneic, hypoxemia respiratory failure, hyperkalemia Consulted provider: will come to ER Procedures - Central Line Left Internal jugular Time completed: 20:55 Consent obtained: No - EMERGENT Central line pre-insertion: Sterile PPE donned, Chloraprep applied Central line lumen type: Triple Anesthetic type: 1% Lidocaine mL's of anesthesia: 4 Ultrasound guided: Yes Line secured with sutures: Yes Central line post-insertion: Blood return from lumens, Biopatch applied, Sutured, Sterile dressing applied, Position confirmed w/ CXR Number of attempts: 1 Complications: No - Intubation Orotracheal Time of Intubation: 20:29 - GCS OF 5 Airway evaluation: Large tongue, Obese Mallampati Classification: Class 4 Medications: Etomidate, Succinylcholine Intubation method: Orotracheal Blade type: Herbert Blade size: 4 Equipment used: Glidescope ETT size: 8.0 ETT secured at: Teeth ETT secured at (cm): 25 Breath Sounds after Intubation: Equal Post Intubation Xray: Yes Intubation Complications: No complications Critical Care Note - Critical Care Note Total time excluding time spent on procedures (mins): 120 Discharge - Discharge Clinical Impression: Acute respiratory failure with hypoxia and hypercarbia, Hyperkalemia Condition: Critical Disposition: ADMITTED INPATIENT Admitting Provider: Gianni (Inensivist) I personally performed the services described in the documentation, reviewed and edited the documentation which was dictated to the scribe in my presence, and it accurately records my words and actions.
[2019-08-15] MEDS: PROPOFOL 1,000 MG/100 ML INFUS..BTL IV PRN (21:51)
--- NOTE | 2019-08-15 22:13 | RADIOLOGY REPORT (SQ) ---
EXAM DESCRIPTION: XR CHEST 1 VIEW COMPLETED DATE/TME: 08/15/2019 20:32 CLINICAL HISTORY: 58 years, Male, ett placement COMPARISON: January 24, 2019 NUMBER OF VIEWS: Single TECHNIQUE: 2147 hours LIMITATIONS: None. FINDINGS: Cardiomediastinal silhouette is enlarged but stable. The lungs are of low volume. No effusion. No pneumothorax. Endotracheal tube lower limits of acceptable, approximately 2 cm above the ruddy. Nasogastric tube tip and sidehole project over the stomach. Left IJ central venous catheter tip projects over SVC IMPRESSION: Satisfactory placement of supportive appliances copyright 2010 [employer]- All Rights Reserved
[2019-08-15 22:20] LABS: APPEARANCE,URINE SLIGHTLY-CLOUDY; BILIRUBIN,URINE NEGATIVE (NEGATIVE); COLOR,URINE YELLOW; GLUCOSE, URINE NEGATIVE (NEGATIVE); KETONES,URINE NEGATIVE (NEGATIVE); PROTEIN,URINE NEGATIVE (NEGATIVE); UROBILINOGEN,URINE NEGATIVE mg/dL (<2.0)
[2019-08-15] MEDS ORDERED: METOPROLOL TARTRATE PF/INJ 5 MG/5 ML SDV IV ONE (22:26)
[2019-08-15 22:33] LABS: URINE AMPHETAMINES SCREEN NEGATIVE; URINE BARBITURATES SCREEN NEGATIVE; URINE BENZODIAZEPINES SCREEN NEGATIVE; URINE COCAINE SCREEN NEGATIVE; URINE MARIJUANA (THC) SCREEN NEGATIVE; URINE METHADONE SCREEN NEGATIVE; URINE PHENCYCLIDINE SCREEN NEGATIVE
[2019-08-15 23:10] LABS: ABSOLUTE BASOPHILS # (AUTO) 0.1 10^3/uL (0.0-0.2); ABSOLUTE EOSINOPHILS # (AUTO) 0.1 10^3/uL (0.0-0.6); ABSOLUTE LYMPHOCYTES (AUTO) 1.3 10^3/uL (0.5-4.7); BASOPHILS % (AUTO) 0.6 % (0-2); EOSINOPHILS % (AUTO) 0.6 % (0-6); HEMATOCRIT 46.4 % (37.9-51.0); HEMOGLOBIN 14.7 g/dL (13.5-17.0); LYMPHOCYTES % (AUTO) 10.6 % (13-45); MEAN CORPUSCULAR HGB CONC 31.7 g/dL (32.0-36.0); MEAN CORPUSCULAR VOLUME 98 fl (80-97); MONOCYTES % (AUTO) 7.7 % (3-13); PLATELET COUNT 251 10^3/uL (150-450); RED BLOOD COUNT 4.75 10^6/uL (4.35-5.55); SEGMENTED NEUTROPHILS % (AUTO) 80.5 % (42-78); TOTAL CELLS COUNTED % (AUTO) 100 %; WHITE BLOOD COUNT 12.5 10^3/uL (4.0-10.5)
--- NOTE | 2019-08-16 00:06 | RADIOLOGY REPORT (SQ) ---
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 COMPARISON: 01/12/2019 TECHNIQUE: CT scan of the brain without IV contrast. This exam was performed according to our departmental dose-optimization program, which includes automated exposure control, adjustment of the mA and/or kV according to patient size and/or use of iterative reconstruction technique. FINDINGS: The ventricles, cisterns, and sulci are age-appropriate. No evidence of acute infarction, intracranial hemorrhage, extra-axial fluid collection, or midline shift. No air-fluid levels are seen in the paranasal sinuses to suggest acute sinusitis. No depressed skull fracture. IMPRESSION: No acute intracranial findings.
--- NOTE | 2019-08-16 00:06 | RADIOLOGY REPORT (SQ) ---
EXAM DESCRIPTION: CT CHEST WITHOUT IV CONTRAST COMPLETED DATE/TME: 08/15/2019 22:27 CLINICAL HISTORY: 58 years Male, copd, respiratory failure Comparison: CR, same day. Technique: No contrast. Coronal and sagittal reformat. This exam was performed according to our departmental dose-optimization program, which includes automated exposure control, adjustment of the mA and/or kV according to patient size and/or use of iterative reconstruction technique. [facility]: Dose Right [facility]: CareDose [facility]: Dose Right [facility]: Teradose 4D [facility]: [employer] LIMITATIONS: None Findings: Adequate appearing endotracheal tube. Adequate appearing enteric tube. Left jugular central line tip at the SVC. Atherosclerotic vascular disease. Moderate lung volume. Bilateral perinephric fat stranding, nonspecific. Stool retention. Small bilateral infrahilar and left basilar consolidative opacity. Unenhanced inferior neck, axillae, mediastinum, lungs, airway, lymphatics, heart, vasculature, upper abdomen, and musculoskeleton appear otherwise unremarkable. Impression: Small bilateral infrahilar and left basilar consolidative opacity. Differential etiologies include mild central edema and small bilateral pneumonia. Intubated.
[2019-08-16] MEDS ORDERED: METHYLPREDNISOLONE INJ 125 MG/2 ML SDV IV ONE (00:40)
[2019-08-16 00:59] LABS: ARTERIAL BLOOD BASE EXCESS 10.2 mmol/L; ARTERIAL BLOOD H2CO3 1.91 mmol/L (1.05-1.35); ARTERIAL BLOOD HCO3 37.7 mmol/L (20-24); ARTERIAL BLOOD O2 SATURATION 92.7 % (94-98); ARTERIAL BLOOD PCO2 63.5 mmHg (35-45); ARTERIAL BLOOD PH 7.39 (7.35-7.45); ARTERIAL BLOOD PO2 67.4 mmHg (80-100); ARTERIAL BLOOD TOTAL CO2 39.7 mmol/L (23-27)
[2019-08-16] MEDS ORDERED: IPRATROPIUM/ALBUTEROL 0.5-2.5 MG/3 ML AMPUL NEB ONE (01:00)
[2019-08-16 01:06] LABS: ARTERIAL BLOOD FIO2 50%
[2019-08-16] MEDS ORDERED: CEFTRIAXONE 2 GM/D5W RTU 2 GM/50 ML RTUPB IV ONE (02:00)
[2019-08-16] MEDS ORDERED: LEVOFLOXACIN 500 MG/D5W RTU 500 MG/100 ML RTUPB IV ONE (02:00)
[2019-08-16] MEDS: MIDAZOLAM HCL 50 MG/100 ML RTUINJ IV PRN ×3 (02:11→21:20)
[2019-08-16] MEDS: RINGERS SOLUTION,LACTATED 1,000 ML IV PRN ×3 (02:11→20:36)
[2019-08-16] MEDS: IPRATROPIUM/ALBUTEROL 0.5-2.5 MG/3 ML AMPUL NEB SCH ×5 (04:08→19:45)
--- NOTE | 2019-08-16 04:34 | CRITICAL CARE ADMISSION REPORT ---
<IVANIA BOB - Last Filed: 08/16/19 04:30> [facility] Date:: 08/16/19 Time:: 01:30 Reason for ICU Reason:: Respiratory failure, COPD exacerbation HPI: 58-year-old male with a history of CHF and COPD with frequent hospitalizations which have included intubation in the recent past. Patient has an extensive EtOH and history of chronic pain with a complex pain medication regimen. Patient presented to the ED after being found unresponsive at home. He was found to have an SPO2 of 66% on room air. He was brought to the emergency room where he was intubated for acute on chronic respiratory failure. CT of head was negative for any intracranial issues. CT of chest shows small bilateral infrahilar and left basilar consolidations. Patient is being admitted to the ICU for respiratory failure secondary to possible bilateral pneumonia complicated by underlying COPD and CHF. He was also found to have a urinalysis positive for nitrates and bacteria. He was placed on levofloxacin and ceftriaxone as well as steroids and bronchodilators. History obtained from:: Patient's and medical record. - Diagnosis/Plan (1) Acute respiratory failure with hypoxia and hypercapnia Is this a current diagnosis for this admission?: Yes Plan: Intubated on 08/16/2019. Size 8.0 ET tube. 26 cm at the lip. Vent settings: PRVC, Vt 500, RR 18, PEEP 5, FiO2 35%. This yields a minute ventilation of 10 L/min. ABG on these settings: 7.39/63.5/67.4/HCO3: 37.7. Continue mechanical ventilation. Continue standing bronchodilators. CXR in AM. (2) Altered mental status Qualifiers: Altered mental status type: coma Coma depth: [place] coma 3-8 Coma timing: in the field (EMT or ambulance) Qualified Code(s): R40.2431 - [place] coma scale score 3-8, in the field [EMT or ambulance] Is this a current diagnosis for this admission?: Yes Plan: Patient's mental status change at home was most likely secondary to hypercapnia. He improved somewhat in the emergency department following intubation and mechanical ventilation. Head CT negative for any intracranial process. Continue to titrate Versed to sedation. Patient is on chronic pain meds, muscle relaxers, and anxiolytics. We will need to resume his home regimen as we lighten sedation with Versed. (3) COPD exacerbation Is this a current diagnosis for this admission?: Yes Plan: Continue with mechanical ventilation. Continue bronchodilators and antibiotics. Patient currently on levofloxacin and ceftriaxone. He received 1 dose of Solu-Medrol this morning. We will start Solu-Medrol 60 mg daily for the next several days. (4) Tobacco abuse Is this a current diagnosis for this admission?: Yes Plan: As per patient's , patient continues to smoke as well as use chewing tobacco. We will plan to discuss tobacco treatment once patient is extubated and able to participate in conversation. Given his extensive smoking history, he is appropriate for decision making discussion surrounding lung cancer screening. (5) UTI (urinary tract infection) Qualifiers: Urinary tract infection type: acute cystitis Hematuria presence: without hematuria Qualified Code(s): N30.00 - Acute cystitis without hematuria Is this a current diagnosis for this admission?: Yes Plan: UA suspicious for UTI. Urine culture pending. Patient started on levofloxacin for both UTI and COPD exacerbation. Continue IV fluids. 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 Musculoskeltal Medical History: Denies: Fibromyalgia Psychiatric Medical History: Reports: Alcohol Dependency, Depression, Tobacco Dependency Traumatic Medical History: Denies: Gunshot Wound, Pneumothorax Hematology: Denies: Sickle Cell Disease Infectious Medical History: Denies: Clostridium Difficile, HIV Past Surgical History Past Surgical History: Reports: Other Social/Family History - Social History Smoking Status: Current Every Day Smoker Frequency of Alcohol Use: Heavy Hx Recreational Drug Use: Yes Hx Prescription Drug Abuse: Yes - Medication/Allergies Home Medications: Alprazolam [Xanax 0.5 mg Tablet] 0.5 mg PO Q12HP PRN 01/12/19 Aspirin [Ecotrin 81 mg EC Tablet] 81 mg PO DAILY 01/12/19 Bupropion HCl [Wellbutrin Xl 300mg 24hr Tablet] 300 mg PO QAM 01/12/19 Montelukast Sodium [Singulair 10 mg Tablet] 10 mg PO QPM 01/12/19 Tamsulosin HCl [Flomax 0.4 mg Cap.sr] 0.4 mg PO DAILY 01/12/19 Gabapentin [Neurontin 300 mg Capsule] 300 mg PO Q8 08/16/19 Meloxicam [Mobic 7.5 mg Tablet] 7.5 mg PO Q12 08/16/19 Venlafaxine HCl 37.5 mg PO Q12 08/16/19 Allergies/Adverse Reactions: No Known Allergies Allergy (Verified 10/21/17 13:20) Review of Systems ROS unobtainable: Due to endotracheal tube Physical Exam Vital Signs: Temp Pulse Resp BP Pulse Ox 97.7 F 73 18 120/84 96 08/16/19 02:00 08/16/19 01:29 08/16/19 01:29 08/16/19 01:29 08/16/19 02:48 Intake & Output 08/14/19 08/15/19 08/16/19 06:59 06:59 06:59 Intake Total 505 Output Total 450 Balance 55 Weight 115.3 kg Weight/Height Weight 115.3 kg Height 5 ft 10 in General appearance: PRESENT: obese, severe distress Head exam: PRESENT: atraumatic Eye exam: PRESENT: PERRLA Mouth exam: PRESENT: dry mucosa Neck exam: ABSENT: JVD, tracheal deviation, tracheostomy Respiratory exam: PRESENT: rhonchi, symmetrical Cardiovascular exam: PRESENT: irregular rhythm Pulses: PRESENT: normal carotid pulses, +2 pedal pulses bilateral Vascular exam: PRESENT: normal capillary refill GI/Abdominal exam: PRESENT: normal bowel sounds Extremities exam: ABSENT: pedal edema Musculoskeletal exam: PRESENT: normal inspection Neurological exam: PRESENT: CN II-XII grossly intact, other - Sedated Skin exam: PRESENT: normal color, warm. ABSENT: rash Tubes/Lines: PRESENT: Endotracheal Tube Laboratory/Radiographs Laboratory Results: 08/15/19 20:37 08/15/19 20:37 08/15/19 08/15/19 08/15/19 20:27 20:37 20:37 WBC RBC Hgb Hct MCV MCH MCHC RDW Plt Count Seg Neutrophils % Carbonic Acid 3.58 H HCO3/H2CO3 Ratio 11:1 ABG pH 7.16 L* ABG pCO2 118.8 H* ABG pO2 71.8 L ABG HCO3 41.1 H ABG O2 Saturation 87.9 L ABG Base Excess 7.5 FiO2 50% Sodium 139.9 Potassium 6.4 H* Chloride 92 L Carbon Dioxide 36 H Anion Gap 12 BUN 45 H Creatinine 1.90 H Est GFR ( Amer) 44 L Glucose 220 H Lactic Acid 1.3 Calcium 8.7 Total Bilirubin 0.3 AST 22 Alkaline Phosphatase 101 Total Protein 7.5 Albumin 3.8 Urine Color Urine Appearance Urine pH Ur Specific [place] Urine Protein Urine Glucose (UA) Urine Ketones Urine Blood Urine RBC (Auto) 08/15/19 08/15/19 08/16/19 20:37 21:30 00:50 WBC 12.5 H RBC 4.75 Hgb 14.7 Hct 46.4 MCV 98 H MCH 31.0 MCHC 31.7 L RDW 15.0 H Plt Count 251 Seg Neutrophils % 80.5 H Carbonic Acid 1.91 H HCO3/H2CO3 Ratio 19:1 ABG pH 7.39 ABG pCO2 63.5 H ABG pO2 67.4 L ABG HCO3 37.7 H ABG O2 Saturation 92.7 L ABG Base Excess 10.2 FiO2 50% Sodium Potassium Chloride Carbon Dioxide Anion Gap BUN Creatinine Est GFR ( Amer) Glucose Lactic Acid Calcium Total Bilirubin AST Alkaline Phosphatase Total Protein Albumin Urine Color YELLOW Urine Appearance SLIGHTLY-CLOUDY Urine pH 5.0 Ur Specific [place] 1.010 Urine Protein NEGATIVE Urine Glucose (UA) NEGATIVE Urine Ketones NEGATIVE Urine Blood NEGATIVE Urine RBC (Auto) 1 08/15/19 20:37 Troponin I < 0.012 NT-Pro-B Natriuret Pep 68 Impressions: Chest X-Ray 08/15/19 20:32 IMPRESSION: Satisfactory placement of supportive appliances copyright 2011 [employer]- All Rights Reserved Head CT 08/15/19 20:34 IMPRESSION: No acute intracranial findings. All labs, radiographs, diagnostic studies and EKGs were personally reviewed: Yes In addition, reports of radiographic and diagnostic studies were read: Yes Critical Time Critical Time (minutes): 70 -: The care of a critically ill patient is dynamic. This note represents a static moment in the admission process. Orders and treatments may be given simultaneously and urgently, and time is not outbound telemarketing representative of the treatment process. This patient requires Critical Care secondary to life threatening organ or limb dysfunction. Without Critical Care services, the patient is at risk for increased mortality and morbidity. <ARIANNA DRIVER - Last Filed: 08/17/19 17:26> HPI - . Plan Summary: Although providing direct care for this patient, I personally reviewed note as primary supervising physician for this [place] Bob. Physical Exam Vital Signs: Temp Pulse Resp BP Pulse Ox 99.2 F 92 18 145/88 H 98 08/17/19 16:00 08/17/19 16:00 08/17/19 16:00 08/17/19 16:00 08/17/19 16:00 Intake & Output 08/16/19 08/17/19 08/18/19 06:59 06:59 06:59 Intake Total 742 3676 1538 Output Total 635 1725 1795 Balance 107 1951 -257 Weight 115.3 kg 117.5 kg Weight/Height Weight 117.5 kg Height 5 ft 10 in Laboratory/Radiographs Laboratory Results: 08/17/19 02:35 08/17/19 02:35 08/17/19 08/17/19 02:35 02:35 WBC 16.1 H RBC 4.32 L Hgb 13.3 L Hct 40.0 MCV 93 D MCH 30.9 MCHC 33.3 RDW 14.4 H Plt Count 269 Seg Neutrophils % 77.3 Sodium 137.4 Potassium 4.5 Chloride 96 L Carbon Dioxide 35 H Anion Gap 6 BUN 38 H Creatinine 1.44 H Est GFR ( Amer) > 60 Glucose 101 Calcium 9.1 08/15/19 22:00 Blood Blood Culture (PCR) - Final Staphylococcus Species 08/15/19 20:37 Troponin I < 0.012 NT-Pro-B Natriuret Pep 68 Impressions: Head CT 08/15/19 20:34 IMPRESSION: No acute intracranial findings. Chest X-Ray 08/17/19 08:00 IMPRESSION: Tubes and lines as above. Otherwise unchanged radiographic appearance of the chest. Critical Time -: The care of a critically ill patient is dynamic. This note represents a static moment in the admission process. Orders and treatments may be given simultaneously and urgently, and time is not outbound telemarketing representative of the treatment process. This patient requires Critical Care secondary to life threatening organ or limb dysfunction. Without Critical Care services, the patient is at risk for increased mortality and morbidity.
[2019-08-16] MEDS: PROPOFOL 1,000 MG/100 ML INFUS..BTL IV PRN ×6 (05:03→22:29)
[2019-08-16] MEDS ORDERED: NORMAL SALINE INJ/PF 0.9% 10 ML SDV IV PRN (05:25)
--- NOTE | 2019-08-16 09:40 | EKG REPORT ---
SEVERITY:- ABNORMAL ECG - ATRIAL FIBRILLATION, V-RATE [id number] : Confirmed by: Reno Lemon MD 16-Aug-2019 09:39:48
[2019-08-16] MEDS: CEFTRIAXONE 2 GM/D5W RTU 2 GM/50 ML RTUPB IV SCH (21:55)
[2019-08-17] MEDS: IPRATROPIUM/ALBUTEROL 0.5-2.5 MG/3 ML AMPUL NEB SCH ×7 (00:35→23:39)
[2019-08-17] MEDS: PROPOFOL 1,000 MG/100 ML INFUS..BTL IV PRN ×8 (01:50→22:54)
[2019-08-17 02:50] LABS: ABSOLUTE LYMPHOCYTES (AUTO) 1.8 10^3/uL (0.5-4.7); ABSOLUTE MONOCYTES (AUTO) 1.8 10^3/uL (0.1-1.4); ABSOLUTE NEUT (AUTO) 12.4 10^3/uL (1.7-8.2); BASOPHILS % (AUTO) 0.2 % (0-2); EOSINOPHILS % (AUTO) 0.1 % (0-6); HEMOGLOBIN 13.3 g/dL (13.5-17.0); LYMPHOCYTES % (AUTO) 11.3 % (13-45); MEAN CORPUSCULAR HEMOGLOBIN 30.9 pg (27.0-33.4); MEAN CORPUSCULAR HGB CONC 33.3 g/dL (32.0-36.0); MONOCYTES % (AUTO) 11.1 % (3-13); PLATELET COUNT 269 10^3/uL (150-450); RED BLOOD COUNT 4.32 10^6/uL (4.35-5.55); RED CELL DISTRIBUTION WIDTH 14.4 % (11.5-14.0); SEGMENTED NEUTROPHILS % (AUTO) 77.3 % (42-78); TOTAL CELLS COUNTED % (AUTO) 100 %; WHITE BLOOD COUNT 16.1 10^3/uL (4.0-10.5)
[2019-08-17 02:51] LABS: MEAN CORPUSCULAR VOLUME 93 fl (80-97)
[2019-08-17 03:11] LABS: ANION GAP 6 (5-19); BLOOD UREA NITROGEN 38 mg/dL (7-20); CALCIUM 9.1 mg/dL (8.4-10.2); CARBON DIOXIDE 35 mmol/L (22-30); CHLORIDE 96 mmol/L (98-107); GLUCOSE 101 mg/dL (75-110); POTASSIUM 4.5 mmol/L (3.6-5.0)
[2019-08-17] MEDS: MIDAZOLAM HCL 50 MG/100 ML RTUINJ IV PRN ×2 (04:59→15:38)
[2019-08-17] MEDS: RINGERS SOLUTION,LACTATED 1,000 ML IV PRN ×3 (04:59→22:54)
--- NOTE | 2019-08-17 09:34 | RADIOLOGY REPORT (SQ) ---
EXAM DESCRIPTION: CHEST SINGLE VIEW COMPLETED DATE/TIME: 08/17/2019 8:47 am REASON FOR STUDY: copd COMPARISON: AP view of the chest from 08/15/2019. EXAM PARAMETERS: NUMBER OF VIEWS: One view. TECHNIQUE: An AP view of the chest was obtained. RADIATION DOSE: NA LIMITATIONS: None. FINDINGS: LUNGS AND PLEURA: Low inspiratory lung volumes with unchanged pleural and parenchymal opac ities in the left hemithorax. There is no pneumothorax. MEDIASTINUM AND HILAR STRUCTURES: Stable mediastinal and hilar contours. HEART AND VASCULAR STRUCTURES: Stable cardiac silhouette. BONES: No acute findings. HARDWARE: The tip of the endotracheal tube projects 2.6 cm above the ruddy. The tip of the enteric tube projects past the gastroesophageal junction and outside the field of view of the radiograph. Th e tip of the left IJ central venous catheter projects within the SVC. OTHER: No other finding. IMPRESSION: Tubes and lines as above. Otherwise unchanged radiographic appearance of the chest. TECHNICAL DOCUMENTATION: JOB ID: [id number] 2010 [employer]- All Rights Reserved Reading location - IP/workstation name: [email or web address]
[2019-08-17] MEDS: ENOXAPARIN SODIUM INJ 40 MG/0.4 ML DISP.SYRIN SUBCUT SCH (09:39)
[2019-08-17] MEDS ORDERED: LEVOFLOXACIN 500 MG/D5W RTU 500 MG/100 ML RTUPB IV SCH (10:00)
[2019-08-17] MEDS ORDERED: PANTOPRAZOLE SODIUM 40 MG VIAL IV SCH (10:00)
[2019-08-17] MEDS ORDERED: VANCOMYCIN HCL INJ 1000 MG VIAL IV ONE (16:16)
--- NOTE | 2019-08-17 16:33 | PDOC CRITICAL CARE PROG REPORT ---
General Date:: 08/17/19 Resuscitation Status: Full Code Events in the past 12 to 24 Hours:: 58-year-old white male with a history of COPD who was admitted with hypercarbic respiratory failure and was found to have bilateral infiltrates. He has been fairly easy to ventilate and oxygenate but his chest x-ray has not started to improve and his white count has gone up. Blood cultures show a staph organism in 1 bottle and gram-positive cocci in the other. Urine has a gram-negative. He is well-known to this ICU and apparently is noncompliant, continues to smoke and is somewhat ornery when not sedated. Reason for ICU Addmission:: Respiratory failure, COPD exacerbation Physical Exam Vital Signs: Temp Pulse Resp BP Pulse Ox 98.8 F 88 18 131/84 H 99 08/17/19 12:00 08/17/19 15:34 08/17/19 15:34 08/17/19 14:00 08/17/19 15:34 Intake & Output 08/16/19 08/17/19 08/18/19 06:59 06:59 06:59 Intake Total 742 3676 1447 Output Total 635 1725 1395 Balance 107 1951 52 Weight 115.3 kg 117.5 kg Weight/Height Weight 117.5 kg Height 5 ft 10 in General appearance: PRESENT: no acute distress - Orally intubated and sedated, obese Eye exam: ABSENT: scleral icterus Mouth exam: PRESENT: neck supple Neck exam: ABSENT: JVD, lymphadenopathy, thyromegaly Respiratory exam: PRESENT: rales Cardiovascular exam: PRESENT: RRR Pulses: PRESENT: normal radial pulses GI/Abdominal exam: PRESENT: soft. ABSENT: tenderness Extremities exam: PRESENT: +1 edema Laboratory/Radiographs Laboratory Results: 08/17/19 02:35 08/17/19 02:35 08/17/19 08/17/19 02:35 02:35 WBC 16.1 H RBC 4.32 L Hgb 13.3 L Hct 40.0 MCV 93 D MCH 30.9 MCHC 33.3 RDW 14.4 H Plt Count 269 Seg Neutrophils % 77.3 Sodium 137.4 Potassium 4.5 Chloride 96 L Carbon Dioxide 35 H Anion Gap 6 BUN 38 H Creatinine 1.44 H Est GFR ( Amer) > 60 Glucose 101 Calcium 9.1 08/15/19 22:00 Blood Blood Culture (PCR) - Final Staphylococcus Species 08/15/19 20:37 Troponin I < 0.012 NT-Pro-B Natriuret Pep 68 Impressions: Head CT 08/15/19 20:34 IMPRESSION: No acute intracranial findings. Chest X-Ray 08/17/19 08:00 IMPRESSION: Tubes and lines as above. Otherwise unchanged radiographic appearance of the chest. Assessment and Plan Plan Summary: Severe COPD Acute on chronic respiratory failure Bilateral pneumonia with ? bacteremia UTI also Vancomycin added to the Rocephin and Levaquin Dietary consult for enteral nutrition Will repeat the chest x-ray in the morning Not ready to wean given white count and chest x-ray Lovenox added Critical Time Critical Time (minutes): 38 Level of Care: ICU -: 1. The care of a critical patient is a dynamic process. This note is a represe ntative synopsis but static in nature. The timeframe for treatments given in order is not necessarily the actual time these treatments may have been done. 2. This patient requires critical care secondary to ongoing requirements for therapy not offered or safe outside the critical care environment. Transfer to a lower level of care will result in altered life or limb morbidity and mortality. 3. Multidisciplinary rounds completed. 4. ABCDE bundle addressed.
[2019-08-17] MEDS: VANCOMYCIN HCL 1,000 MG in DEXTROSE 5%-WATER 250 ML IV SCH (18:30)
[2019-08-17] MEDS: CEFTRIAXONE 2 GM/D5W RTU 2 GM/50 ML RTUPB IV SCH (21:56)
[2019-08-18] MEDS: PROPOFOL 1,000 MG/100 ML INFUS..BTL IV PRN ×7 (02:30→21:25)
[2019-08-18] MEDS: MIDAZOLAM HCL 50 MG/100 ML RTUINJ IV PRN (04:40)
[2019-08-18] MEDS: IPRATROPIUM/ALBUTEROL 0.5-2.5 MG/3 ML AMPUL NEB SCH ×5 (04:48→19:54)
[2019-08-18] MEDS: VANCOMYCIN HCL 1,000 MG in DEXTROSE 5%-WATER 250 ML IV SCH ×2 (05:34→17:55)
[2019-08-18 06:07] LABS: INTERNATIONAL RATION (INR) 1.08; PROTHROMBIN TIME 14.1 SEC (11.4-15.4)
[2019-08-18 06:08] LABS: PARTIAL THROMBOPLASTIN TIME 28.5 SEC (23.5-35.8)
[2019-08-18 06:13] LABS: ABSOLUTE BASOPHILS # (AUTO) 0.1 10^3/uL (0.0-0.2); ABSOLUTE EOSINOPHILS # (AUTO) 0.2 10^3/uL (0.0-0.6); ABSOLUTE LYMPHOCYTES (AUTO) 1.9 10^3/uL (0.5-4.7); ABSOLUTE MONOCYTES (AUTO) 1.1 10^3/uL (0.1-1.4); ABSOLUTE NEUT (AUTO) 8.3 10^3/uL (1.7-8.2); BASOPHILS % (AUTO) 0.6 % (0-2); EOSINOPHILS % (AUTO) 1.5 % (0-6); HEMATOCRIT 37.9 % (37.9-51.0); HEMOGLOBIN 12.8 g/dL (13.5-17.0); LYMPHOCYTES % (AUTO) 16.9 % (13-45); MEAN CORPUSCULAR HEMOGLOBIN 31.1 pg (27.0-33.4); MEAN CORPUSCULAR HGB CONC 33.8 g/dL (32.0-36.0); MEAN CORPUSCULAR VOLUME 92 fl (80-97); MONOCYTES % (AUTO) 9.2 % (3-13); PLATELET COUNT 245 10^3/uL (150-450); RED BLOOD COUNT 4.12 10^6/uL (4.35-5.55); SEGMENTED NEUTROPHILS % (AUTO) 71.8 % (42-78); TOTAL CELLS COUNTED % (AUTO) 100 %; WHITE BLOOD COUNT 11.5 10^3/uL (4.0-10.5)
[2019-08-18 06:20] LABS: ANION GAP 6 (5-19); BLOOD UREA NITROGEN 19 mg/dL (7-20); CALCIUM 8.7 mg/dL (8.4-10.2); CARBON DIOXIDE 30 mmol/L (22-30); CHLORIDE 102 mmol/L (98-107); GLUCOSE 97 mg/dL (75-110); POTASSIUM 3.9 mmol/L (3.6-5.0)
[2019-08-18 06:26] LABS: ARTERIAL BLOOD BASE EXCESS 5.1 mmol/L; ARTERIAL BLOOD H2CO3 1.26 mmol/L (1.05-1.35); ARTERIAL BLOOD HCO3 29.3 mmol/L (20-24); ARTERIAL BLOOD O2 SATURATION 95.7 % (94-98); ARTERIAL BLOOD PCO2 41.7 mmHg (35-45); ARTERIAL BLOOD PH 7.47 (7.35-7.45); ARTERIAL BLOOD PO2 74.8 mmHg (80-100); ARTERIAL BLOOD TOTAL CO2 30.6 mmol/L (23-27)
[2019-08-18 06:27] LABS: ARTERIAL BLOOD FIO2 45%
--- NOTE | 2019-08-18 08:23 | RADIOLOGY REPORT (SQ) ---
EXAM DESCRIPTION: CHEST SINGLE VIEW COMPLETED DATE/TIME: 08/18/2019 5:57 am REASON FOR STUDY: pneumonia COMPARISON: AP chest 08/17/2019, 08/15/2019, 01/24/2019, 01/19/2019 EXAM PARAMETERS: NUMBER OF VIEWS: One view. TECHNIQUE: Single frontal radiographic view of the chest acquired. RADIATION DOSE: NA LIMITATIONS: None. FINDINGS: LUNGS AND PLEURA: Bibasilar atelectasis is present. No pleural effusion. No pneumothorax . MEDIASTINUM AND HILAR STRUCTURES: No masses. Contour normal. HEART AND VASCULAR STRUCTURES: No cardiomegaly BONES: No acute findings. HARDWARE: Endotracheal tube tip 3 cm above the ruddy. Left jugular central line tip superior vena c dang. Nasogastric tube tip and side port in the stomach. OTHER: No other significant finding. IMPRESSION: Minimal left and right basilar atelectasis. Tubes and lines in good positioning. TECHNICAL DOCUMENTATION: JOB ID: [id number] 2010 [employer]- All Rights Reserved Reading location - IP/workstation name: [email or web address]
[2019-08-18] MEDS: RINGERS SOLUTION,LACTATED 1,000 ML IV PRN ×2 (08:31→19:00)
[2019-08-18] MEDS: FAMOTIDINE 20 MG TABLET PO SCH ×2 (09:50→21:27)
[2019-08-18] MEDS: ENOXAPARIN SODIUM INJ 40 MG/0.4 ML DISP.SYRIN SUBCUT SCH (09:50)
[2019-08-18] MEDS ORDERED: METHYLPREDNISOLONE INJ 125 MG/2 ML SDV IV ONE (11:45)
[2019-08-18 12:29] LABS: ARTERIAL BLOOD BASE EXCESS 4.9 mmol/L; ARTERIAL BLOOD H2CO3 1.53 mmol/L (1.05-1.35); ARTERIAL BLOOD HCO3 30.8 mmol/L (20-24); ARTERIAL BLOOD O2 SATURATION 96.8 % (94-98); ARTERIAL BLOOD PCO2 50.7 mmHg (35-45); ARTERIAL BLOOD PO2 90.7 mmHg (80-100); ARTERIAL BLOOD TOTAL CO2 32.4 mmol/L (23-27)
[2019-08-18 12:30] LABS: ARTERIAL BLOOD FIO2 40%
[2019-08-18] MEDS: CEFTRIAXONE 2 GM/D5W RTU 2 GM/50 ML RTUPB IV SCH (21:26)
[2019-08-18] MEDS: METHYLPREDNISOLONE INJ 40 MG/1 ML SDV IV SCH (21:27)
--- NOTE | 2019-08-18 21:59 | PDOC CRITICAL CARE PROG REPORT ---
General Date:: 08/18/19 Resuscitation Status: Full Code Events in the past 12 to 24 Hours:: Patient has been weaning on the ventilator however did not tolerate for the entire day. In the afternoon he tired and had to be placed on conventional assist control. Review of systems relevant to events:: No further hemodynamic instability no neurological changes except for agitation controlled by sedation Reason for ICU Addmission:: Respiratory failure, COPD exacerbation - Medications: Medications reviewed and adjusted accordingly: Yes Sedation:: Propofol Physical Exam Vital Signs: Temp Pulse Resp BP Pulse Ox 99.4 F 99 19 147/92 H 96 08/18/19 20:00 08/18/19 20:00 08/18/19 19:54 08/18/19 19:12 08/18/19 19:54 Intake & Output 08/17/19 08/18/19 08/19/19 06:59 06:59 06:59 Intake Total 3726 3240 2776 Output Total 1725 4180 2585 Balance 2000 191 Weight 117.5 kg 116.8 kg Weight/Height Weight 116.8 kg Height 5 ft 10 in General appearance: PRESENT: no acute distress, morbidly obese, well-developed, well-nourished Exam: Intubated, nontoxic obese appearing 58-year-old male who appears older than stated age, no acute distress Eye exam: PRESENT: conjunctival injection, PERRLA. ABSENT: nystagmus, scleral icterus Mouth exam: PRESENT: dry mucosa Neck exam: ABSENT: carotid bruit, thyromegaly Respiratory exam: PRESENT: clear to auscultation abi, unlabored. ABSENT: accessory muscle use, rales, rhonchi, tachypnea, wheezes Cardiovascular exam: PRESENT: RRR. ABSENT: diastolic murmur, rubs, systolic murmur GI/Abdominal exam: PRESENT: normal bowel sounds, soft. ABSENT: ascites, distended, guarding, mass, organolmegaly, rebound, tenderness Extremities exam: PRESENT: +1 edema Musculoskeletal exam: ABSENT: deformity, dislocation Neurological exam: PRESENT: altered - Sedated but responds to noxious stimulus. Skin exam: PRESENT: dry, intact, warm. ABSENT: cyanosis, mottled, rash Tubes/Lines: PRESENT: Endotracheal Tube - gonzalez catheter Laboratory/Radiographs Laboratory Results: 08/18/19 05:40 08/18/19 05:40 08/18/19 08/18/19 08/18/19 05:40 05:40 06:06 WBC 11.5 H RBC 4.12 L Hgb 12.8 L Hct 37.9 MCV 92 MCH 31.1 MCHC 33.8 RDW 15.0 H Plt Count 245 Seg Neutrophils % 71.8 Carbonic Acid 1.26 HCO3/H2CO3 Ratio 23:1 ABG pH 7.47 H ABG pCO2 41.7 ABG pO2 74.8 L ABG HCO3 29.3 H ABG O2 Saturation 95.7 ABG Base Excess 5.1 FiO2 45% Sodium 137.6 Potassium 3.9 Chloride 102 Carbon Dioxide 30 Anion Gap 6 BUN 19 Creatinine 1.08 Est GFR ( Amer) > 60 Glucose 97 Calcium 8.7 08/18/19 12:15 WBC RBC Hgb Hct MCV MCH MCHC RDW Plt Count Seg Neutrophils % Carbonic Acid 1.53 H HCO3/H2CO3 Ratio 20:1 ABG pH 7.40 ABG pCO2 50.7 H ABG pO2 90.7 ABG HCO3 30.8 H ABG O2 Saturation 96.8 ABG Base Excess 4.9 FiO2 40% Sodium Potassium Chloride Carbon Dioxide Anion Gap BUN Creatinine Est GFR ( Amer) Glucose Calcium 08/15/19 22:00 Blood Blood Culture (PCR) - Final Staphylococcus Species 08/15/19 22:00 Blood Blood Culture - Final Staphylococcus Epidermidis 08/15/19 20:37 Troponin I < 0.012 NT-Pro-B Natriuret Pep 68 Impressions: Head CT 08/15/19 20:34 IMPRESSION: No acute intracranial findings. Chest X-Ray 08/18/19 05:00 IMPRESSION: Minimal left and right basilar atelectasis. Tubes and lines in good positioning. All labs, radiographs, diagnostic studies and EKGs were personally reviewed: Yes In addition, reports of radiographic and diagnostic studies were read: Yes Assessment and Plan - Diagnosis (1) Acute respiratory failure with hypoxia and hypercapnia Is this a current diagnosis for this admission?: Yes (2) Acute metabolic encephalopathy Is this a current diagnosis for this admission?: Yes (3) COPD exacerbation Is this a current diagnosis for this admission?: Yes (4) Tobacco abuse disorder Is this a current diagnosis for this admission?: Yes (5) ETOH abuse Is this a current diagnosis for this admission?: Yes Plan Summary: Patient is heavily sedated because of his previous history of extreme agitation and combative behavior. He did tolerate a significant portion of the day and vent wean mode however was unable to continue enough to be liberated from the ventilator. Will continue to wean sedation and control agitation with Haldol or Geodon as well as fentanyl. Versed will be discontinued as well. Pt. has UTI with and Shannon treated and sensitive to Rocephin Critical Time Critical Time (minutes): 40 Level of Care: ICU -: 1. The care of a critical patient is a dynamic process. This note is a paper sales representative synopsis but static in nature. The timeframe for treatments given in order is not necessarily the actual time these treatments may have been done. 2. This patient requires critical care secondary to ongoing requirements for therapy not offered or safe outside the critical care environment. Transfer to a lower level of care will result in altered life or limb morbidity and mortality. 3. Multidisciplinary rounds completed. 4. ABCDE bundle addressed.
[2019-08-19] MEDS: IPRATROPIUM/ALBUTEROL 0.5-2.5 MG/3 ML AMPUL NEB SCH ×7 (00:32→23:47)
[2019-08-19] MEDS: PROPOFOL 1,000 MG/100 ML INFUS..BTL IV PRN ×2 (01:32→04:46)
[2019-08-19] MEDS: RINGERS SOLUTION,LACTATED 1,000 ML IV PRN ×2 (04:06→14:41)
[2019-08-19] MEDS ORDERED: DEXMEDETOMIDINE IN 0.9 % NACL 400 MCG/100 ML RTUPB IV ONE (04:28)
[2019-08-19] MEDS: DEXMEDETOMIDINE IN 0.9 % NACL 400 MCG/100 ML RTUPB IV PRN ×4 (04:30→19:55)
[2019-08-19] MEDS: VANCOMYCIN HCL 1,000 MG in DEXTROSE 5%-WATER 250 ML IV SCH ×3 (05:03→21:40)
[2019-08-19 05:05] LABS: ABSOLUTE LYMPHOCYTES (AUTO) 0.9 10^3/uL (0.5-4.7); ABSOLUTE MONOCYTES (AUTO) 0.7 10^3/uL (0.1-1.4); ABSOLUTE NEUT (AUTO) 8.2 10^3/uL (1.7-8.2); BASOPHILS % (AUTO) 0.2 % (0-2); HEMATOCRIT 38.9 % (37.9-51.0); HEMOGLOBIN 13.1 g/dL (13.5-17.0); LYMPHOCYTES % (AUTO) 9.4 % (13-45); MEAN CORPUSCULAR HEMOGLOBIN 31.2 pg (27.0-33.4); MEAN CORPUSCULAR HGB CONC 33.7 g/dL (32.0-36.0); MEAN CORPUSCULAR VOLUME 93 fl (80-97); MONOCYTES % (AUTO) 6.8 % (3-13); PLATELET COUNT 259 10^3/uL (150-450); RED BLOOD COUNT 4.19 10^6/uL (4.35-5.55); RED CELL DISTRIBUTION WIDTH 14.3 % (11.5-14.0); SEGMENTED NEUTROPHILS % (AUTO) 83.6 % (42-78); TOTAL CELLS COUNTED % (AUTO) 100 %; WHITE BLOOD COUNT 9.8 10^3/uL (4.0-10.5)
[2019-08-19 05:25] LABS: ANION GAP 8 (5-19); BLOOD UREA NITROGEN 19 mg/dL (7-20); CALCIUM 8.7 mg/dL (8.4-10.2); CARBON DIOXIDE 27 mmol/L (22-30); CHLORIDE 105 mmol/L (98-107); GLUCOSE 117 mg/dL (75-110); PHOSPHORUS 4.8 mg/dL (2.5-4.5); POTASSIUM 4.1 mmol/L (3.6-5.0)
[2019-08-19 05:29] LABS: VANCOMYCIN,TROUGH 9.6 ug/mL (5.0-20.0)
[2019-08-19] MEDS: ENOXAPARIN SODIUM INJ 40 MG/0.4 ML DISP.SYRIN SUBCUT SCH (09:24)
[2019-08-19] MEDS: FAMOTIDINE 20 MG TABLET PO SCH ×2 (09:24→21:40)
[2019-08-19] MEDS: METHYLPREDNISOLONE INJ 40 MG/1 ML SDV IV SCH ×2 (09:24→21:40)
[2019-08-19] MEDS: CEFTRIAXONE 2 GM/D5W RTU 2 GM/50 ML RTUPB IV SCH (21:41)
--- NOTE | 2019-08-19 21:48 | PDOC CRITICAL CARE PROG REPORT ---
General Resuscitation Status: Full Code Events in the past 12 to 24 Hours:: 08.19.2019: Patient hads been weaning on the ventilator throughout the day today but quickly tired. He was placed on conventional ventilation. He had elevation in his respiratory rate and low tidal volumes. During times of lucidity while on the ventilator he did endorse that he would want to be reintubated if he was extubated and failed. He was evaluated multiple times to the day for suitability for liberation but was unable to be safely extubated. Review of systems relevant to events:: No fever or hemodynamic instability. Sedation has been weaned and he is following commands moving all extremities. Reason for ICU Addmission:: Respiratory failure, COPD exacerbation - Medications: Sedation:: Precedex Physical Exam Vital Signs: Temp Pulse Resp BP Pulse Ox 98.7 F 62 20 158/100 H 98 08/19/19 20:00 08/19/19 20:08 08/19/19 20:08 08/19/19 18:13 08/19/19 20:08 Intake & Output 08/18/19 08/19/19 08/20/19 06:59 06:59 06:59 Intake Total 3240 4592 1545 Output Total 4180 3635 985 Balance -940 957 560 Weight 116.8 kg 116.1 kg 116.1 kg Weight/Height Weight 116.1 kg Height 5 ft 10 in General appearance: PRESENT: no acute distress, cooperative, morbidly obese, well-nourished Head exam: PRESENT: atraumatic, normocephalic Eye exam: PRESENT: conjunctiva pink, EOMI, PERRLA. ABSENT: nystagmus, scleral icterus Mouth exam: PRESENT: dry mucosa Neck exam: ABSENT: carotid bruit, JVD, lymphadenopathy Respiratory exam: PRESENT: accessory muscle use, tachypnea. ABSENT: unlabored - during wean Cardiovascular exam: PRESENT: RRR. ABSENT: diastolic murmur, rubs, systolic murmur GI/Abdominal exam: PRESENT: normal bowel sounds, soft. ABSENT: ascites, distended, guarding, mass, organolmegaly, rebound, tenderness Rectal exam: PRESENT: deferred Gentrourinary exam: PRESENT: indwelling catheter Extremities exam: PRESENT: +1 edema Musculoskeletal exam: ABSENT: deformity, dislocation Neurological exam: PRESENT: alert, awake, oriented to situation. ABSENT: motor sensory deficit Psychiatric exam: PRESENT: appropriate affect Skin exam: PRESENT: dry, intact, warm. ABSENT: cyanosis, rash Tubes/Lines: PRESENT: Endotracheal Tube Laboratory/Radiographs Laboratory Results: 08/19/19 04:55 08/19/19 04:55 08/19/19 08/19/19 04:55 04:55 WBC 9.8 RBC 4.19 L Hgb 13.1 L Hct 38.9 MCV 93 MCH 31.2 MCHC 33.7 RDW 14.3 H Plt Count 259 Seg Neutrophils % 83.6 H Sodium 139.7 Potassium 4.1 Chloride 105 Carbon Dioxide 27 Anion Gap 8 BUN 19 Creatinine 1.00 Est GFR ( Amer) > 60 Glucose 117 H Calcium 8.7 Phosphorus 4.8 H Magnesium 2.2 08/15/19 21:30 Catheterized Urine Urine Culture - Final Morganella Morganii Aerococcus Urinae 08/16/19 05:41 Tracheal Aspirate Gram Stain - Final 08/16/19 05:41 Tracheal Aspirate Sputum Culture - Final NORMAL JULIA 08/15/19 20:37 Troponin I < 0.012 NT-Pro-B Natriuret Pep 68 Impressions: Head CT 08/15/19 20:34 IMPRESSION: No acute intracranial findings. Chest X-Ray 08/18/19 05:00 IMPRESSION: Minimal left and right basilar atelectasis. Tubes and lines in good positioning. All labs, radiographs, diagnostic studies and EKGs were personally reviewed: Yes In addition, reports of radiographic and diagnostic studies were read: Yes Assessment and Plan - Diagnosis (1) Acute respiratory failure with hypoxia and hypercapnia Is this a current diagnosis for this admission?: Yes (2) Acute metabolic encephalopathy Is this a current diagnosis for this admission?: Yes (3) COPD exacerbation Is this a current diagnosis for this admission?: Yes (4) Tobacco abuse disorder Is this a current diagnosis for this admission?: Yes (5) ETOH abuse Is this a current diagnosis for this admission?: Yes (6) Obesity (BMI 30-39.9) Is this a current diagnosis for this admission?: Yes (7) Acute kidney failure Qualifiers: Acute renal failure type: with acute tubular necrosis Qualified Code(s): N17.0 - Acute kidney failure with tubular necrosis Is this a current diagnosis for this admission?: Yes Plan Summary: 08.19.2019: Patient does show subtle improvement but is not yet suitable for liberation from the ventilator. It does not appear to be fluid overload but a manifestation of his advanced COPD. To new to monitor his fluid balance and adjudicate when diuresis may be effective. He does have acute renal failure on admission and I am reticent to diurese until I can be sure that he is quite improved. Continue steroids recheck labs. New antibiotics. Any supportive care and start nutritional support. 08.18.2019: Patient is heavily sedated because of his previous history of extreme agitation and combative behavior. He did tolerate a significant portion of the day and vent wean mode however was unable to continue enough to be liberated from the ventilator. Will continue to wean sedation and control agitation with Haldol or Geodon as well as fentanyl. Versed will be discontinued as well. Pt. has UTI with and Shannon treated and sensitive to Rocephin Critical Time Critical Time (minutes): 45 Level of Care: ICU Anticipated discharge: Acute Rehab Within: within 48 hours -: 1. The care of a critical patient is a dynamic process. This note is a repr esentative synopsis but static in nature. The timeframe for treatments given in order is not necessarily the actual time these treatments may have been done. 2. This patient requires critical care secondary to ongoing requirements for therapy not offered or safe outside the critical care environment. Transfer to a lower level of care will result in altered life or limb morbidity and mortality. 3. Multidisciplinary rounds completed. 4. ABCDE bundle addressed.
[2019-08-19] MEDS: AMINO AC/PROTEIN HYDR/WHEY PRO 11 GM/45 ML PKT NG SCH (23:34)
[2019-08-20] MEDS: DEXMEDETOMIDINE IN 0.9 % NACL 400 MCG/100 ML RTUPB IV PRN ×6 (00:11→14:30)
[2019-08-20] MEDS: RINGERS SOLUTION,LACTATED 1,000 ML IV PRN (00:12)
[2019-08-20] MEDS: IPRATROPIUM/ALBUTEROL 0.5-2.5 MG/3 ML AMPUL NEB SCH ×6 (03:23→23:59)
[2019-08-20] MEDS ORDERED: HYDRALAZINE HCL INJ/PF 20 MG/1 ML SDV IV ONE (03:25)
[2019-08-20] MEDS ORDERED: HYDRALAZINE HCL INJ/PF 20 MG/1 ML SDV ONE (03:36)
[2019-08-20] MEDS: VANCOMYCIN HCL 1,000 MG in DEXTROSE 5%-WATER 250 ML IV SCH ×3 (05:00→21:10)
[2019-08-20 06:29] LABS: ABSOLUTE LYMPHOCYTES (AUTO) 1.3 10^3/uL (0.5-4.7); ABSOLUTE MONOCYTES (AUTO) 0.7 10^3/uL (0.1-1.4); ABSOLUTE NEUT (AUTO) 10.2 10^3/uL (1.7-8.2); ARTERIAL BLOOD BASE EXCESS 2.7 mmol/L; ARTERIAL BLOOD FIO2 30%; ARTERIAL BLOOD H2CO3 0.97 mmol/L (1.05-1.35); ARTERIAL BLOOD HCO3 25.1 mmol/L (20-24); ARTERIAL BLOOD O2 SATURATION 96.1 % (94-98); ARTERIAL BLOOD PCO2 32.1 mmHg (35-45); ARTERIAL BLOOD PH 7.51 (7.35-7.45); ARTERIAL BLOOD PO2 73.3 mmHg (80-100); ARTERIAL BLOOD TOTAL CO2 26.1 mmol/L (23-27); BASOPHILS % (AUTO) 0.3 % (0-2); HEMOGLOBIN 13.6 g/dL (13.5-17.0); LYMPHOCYTES % (AUTO) 10.6 % (13-45); MEAN CORPUSCULAR HEMOGLOBIN 30.5 pg (27.0-33.4); MEAN CORPUSCULAR HGB CONC 33.1 g/dL (32.0-36.0); MEAN CORPUSCULAR VOLUME 92 fl (80-97); MONOCYTES % (AUTO) 5.5 % (3-13); PLATELET COUNT 275 10^3/uL (150-450); RED BLOOD COUNT 4.46 10^6/uL (4.35-5.55); RED CELL DISTRIBUTION WIDTH 14.6 % (11.5-14.0); SEGMENTED NEUTROPHILS % (AUTO) 83.6 % (42-78); TOTAL CELLS COUNTED % (AUTO) 100 %; WHITE BLOOD COUNT 12.2 10^3/uL (4.0-10.5)
[2019-08-20 07:01] LABS: ANION GAP 8 (5-19); BLOOD UREA NITROGEN 26 mg/dL (7-20); CALCIUM 8.8 mg/dL (8.4-10.2); CARBON DIOXIDE 25 mmol/L (22-30); CHLORIDE 104 mmol/L (98-107); GLUCOSE 147 mg/dL (75-110); PHOSPHORUS 3.6 mg/dL (2.5-4.5)
[2019-08-20] MEDS ORDERED: FUROSEMIDE INJ/PF 20 MG/2 ML SDV IV ONE (08:34)
--- NOTE | 2019-08-20 09:20 | RADIOLOGY REPORT (SQ) ---
EXAM DESCRIPTION: CHEST SINGLE VIEW COMPLETED DATE/TIME: 08/20/2019 7:00 am REASON FOR STUDY: respiratory failure COMPARISON: 08/18/2019 NUMBER OF VIEWS: One view. TECHNIQUE: Single frontal radiographic image of the chest acquired. LIMITATIONS: None. FINDINGS: LUNGS AND PLEURA: Small pleural effusions and associated airspace disease. Slight improve d aeration left lower lobe. No pneumothorax. MEDIASTINUM AND HEART: Stable heart size and mediastinal structures. SUPPORT DEVICES: Appropriate location without change. BONY STRUCTURES: No acute findings. HARDWARE: None. OTHER: No other significant finding. IMPRESSION: Slight improvement. No pneumothorax. Reading location - IP/workstation name: [email or web address]
[2019-08-20] MEDS: ENOXAPARIN SODIUM INJ 40 MG/0.4 ML DISP.SYRIN SUBCUT SCH (09:30)
[2019-08-20] MEDS: METHYLPREDNISOLONE INJ 40 MG/1 ML SDV IV SCH ×2 (09:30→21:11)
[2019-08-20] MEDS: FAMOTIDINE 20 MG TABLET PO SCH (09:30)
[2019-08-20] MEDS: ACETAZOLAMIDE SODIUM INJ 500 MG VIAL IV SCH ×3 (09:39→21:13)
[2019-08-20] MEDS: AMINO AC/PROTEIN HYDR/WHEY PRO 11 GM/45 ML PKT NG SCH ×2 (09:39→14:01)
[2019-08-20] MEDS: QUETIAPINE FUMARATE 25 MG TABLET PO SCH ×2 (09:39→21:11)
[2019-08-20 14:41] LABS: VANCOMYCIN,TROUGH 15.8 ug/mL (5.0-20.0)
[2019-08-20 15:32] LABS: ARTERIAL BLOOD BASE EXCESS -1.5 mmol/L; ARTERIAL BLOOD FIO2 30%; ARTERIAL BLOOD H2CO3 0.99 mmol/L (1.05-1.35); ARTERIAL BLOOD HCO3 21.8 mmol/L (20-24); ARTERIAL BLOOD O2 SATURATION 97.2 % (94-98); ARTERIAL BLOOD PCO2 32.9 mmHg (35-45); ARTERIAL BLOOD PH 7.44 (7.35-7.45); ARTERIAL BLOOD PO2 90.2 mmHg (80-100); ARTERIAL BLOOD TOTAL CO2 22.8 mmol/L (23-27)
[2019-08-20] MEDS: CEFTRIAXONE 2 GM/D5W RTU 2 GM/50 ML RTUPB IV SCH (21:10)
--- NOTE | 2019-08-20 22:30 | PDOC CRITICAL CARE PROG REPORT ---
General Date:: 08/20/19 ICU Day:: 5 Resuscitation Status: Full Code Medical Power of Consultant In Ergonomics And Safety: Events in the past 12 to 24 Hours:: 08.20.2019: Successfully weaned and liberated from ventilator during day. Repeat examination showed stable airway, no stridor breathing comfortably. 08.19.2019: Patient has been weaning on the ventilator throughout the day today but quickly tired. He was placed on conventional ventilation. He had elevation in his respiratory rate and low tidal volumes. During times of lucidity while on the ventilator he did endorse that he would want to be reintubated if he was extubated and failed. He was evaluated multiple times to the day for suitability for liberation but was unable to be safely extubated. Review of systems relevant to events:: No fever or hemodynamic instability. Sedation has been weaned and he is following commands moving all extremities. Reason for ICU Addmission:: Respiratory failure, COPD exacerbation - Medications: Medications reviewed and adjusted accordingly: Yes Sedation:: Precedex Physical Exam Vital Signs: Temp Pulse Resp BP Pulse Ox 99.6 F 63 25 H 147/88 H 95 08/20/19 20:00 08/20/19 19:47 08/20/19 19:47 08/20/19 18:23 08/20/19 19:47 Intake & Output 08/19/19 08/20/19 08/21/19 06:59 06:59 06:59 Intake Total 4592 3394 550 Output Total 3635 2080 2310 Balance 957 1314 -1760 Weight 116.1 kg 118.4 kg Weight/Height Weight 118.4 kg Height 5 ft 10 in General appearance: PRESENT: no acute distress, morbidly obese, well-developed, well-nourished Exam: Debated chronically ill nontoxic older appearing 58-year-old male no acute distress awake following commands able to lift his head off the bed Head exam: PRESENT: atraumatic, normocephalic Eye exam: PRESENT: conjunctiva pink, EOMI, PERRLA. ABSENT: scleral icterus Neck exam: PRESENT: full ROM. ABSENT: carotid bruit, thyromegaly Respiratory exam: PRESENT: clear to auscultation abi. ABSENT: accessory muscle use, rales, rhonchi, wheezes Cardiovascular exam: PRESENT: RRR, +S1, +S2 Vascular exam: PRESENT: normal capillary refill GI/Abdominal exam: PRESENT: normal bowel sounds, soft. ABSENT: ascites, distended, guarding, mass, organolmegaly, rebound, tenderness Gentrourinary exam: PRESENT: indwelling catheter Extremities exam: PRESENT: +1 edema Musculoskeletal exam: ABSENT: deformity, dislocation Neurological exam: PRESENT: awake. ABSENT: motor sensory deficit Psychiatric exam: PRESENT: appropriate affect, normal mood. ABSENT: homicidal ideation, suicidal ideation Skin exam: PRESENT: dry, intact, warm. ABSENT: cyanosis, rash Tubes/Lines: PRESENT: Endotracheal Tube, Other - OGT, gonzalez Laboratory/Radiographs Laboratory Results: 08/20/19 06:15 08/20/19 13:57 08/20/19 08/20/19 08/20/19 06:15 06:15 06:15 WBC 12.2 H RBC 4.46 Hgb 13.6 Hct 41.0 MCV 92 MCH 30.5 MCHC 33.1 RDW 14.6 H Plt Count 275 Seg Neutrophils % 83.6 H Carbonic Acid 0.97 L HCO3/H2CO3 Ratio 25:1 ABG pH 7.51 H ABG pCO2 32.1 L ABG pO2 73.3 L ABG HCO3 25.1 H ABG O2 Saturation 96.1 ABG Base Excess 2.7 FiO2 30% Sodium 137.2 Potassium 4.0 Chloride 104 Carbon Dioxide 25 Anion Gap 8 BUN 26 H Creatinine 0.95 Est GFR ( Amer) > 60 Glucose 147 H Calcium 8.8 Phosphorus 3.6 Magnesium 2.3 08/20/19 08/20/19 13:57 15:14 WBC RBC Hgb Hct MCV MCH MCHC RDW Plt Count Seg Neutrophils % Carbonic Acid 0.99 L HCO3/H2CO3 Ratio 22:1 ABG pH 7.44 ABG pCO2 32.9 L ABG pO2 90.2 ABG HCO3 21.8 ABG O2 Saturation 97.2 ABG Base Excess -1.5 FiO2 30% Sodium Potassium Chloride Carbon Dioxide Anion Gap BUN Creatinine 1.09 Est GFR ( Amer) > 60 Glucose Calcium Phosphorus Magnesium 08/15/19 20:37 Blood Blood Culture - Final NO GROWTH IN 5 DAYS 08/15/19 20:37 Troponin I < 0.012 NT-Pro-B Natriuret Pep 68 Impressions: Head CT 08/15/19 20:34 IMPRESSION: No acute intracranial findings. Chest X-Ray 08/20/19 06:00 IMPRESSION: Slight improvement. No pneumothorax. All labs, radiographs, diagnostic studies and EKGs were personally reviewed: Yes In addition, reports of radiographic and diagnostic studies were read: Yes Assessment and Plan - Diagnosis (1) Acute respiratory failure with hypoxia and hypercapnia Is this a current diagnosis for this admission?: Yes (2) Acute metabolic encephalopathy Is this a current diagnosis for this admission?: Yes (3) COPD exacerbation Is this a current diagnosis for this admission?: Yes (4) Tobacco abuse disorder Is this a current diagnosis for this admission?: Yes (5) ETOH abuse Is this a current diagnosis for this admission?: Yes (6) Obesity (BMI 30-39.9) Is this a current diagnosis for this admission?: Yes (7) Acute kidney failure Qualifiers: Acute renal failure type: with acute tubular necrosis Qualified Code(s): N17.0 - Acute kidney failure with tubular necrosis Is this a current diagnosis for this admission?: Yes Plan Summary: 08.20.2019: Patient continues to improve and is now been successfully liberated from the ventilator. Will need physical therapy. Had a lengthy discussion with the patient post extubation. He now attest to the fact that he agrees with full CODE STATUS. We will need follow-up in rehab. We will refer to Dr. Kat who is his stage rigger. Antibiotics for at least 5 to 7 days. Wean steroids Continue Seroquel which appears to assist with anxiety and agitation. Hold Bupropion and Venlafaxine 08.19.2019: Patient does show subtle improvement but is not yet suitable for liberation from the ventilator. It does not appear to be fluid overload but a manifestation of his advanced COPD. To new to monitor his fluid balance and adjudicate when diuresis may be effective. He does have acute renal failure on admission and I am reticent to diurese until I can be sure that he is quite improved. Continue steroids recheck labs. Continue antibiotics. Any supportive care and start nutritional support. 08.18.2019: Patient is heavily sedated because of his previous history of extreme agitation and combative behavior. He did tolerate a significant portion of the day and vent wean mode however was unable to continue enough to be liberated from the ventilator. Will continue to wean sedation and control agitation with Haldol or Geodon as well as fentanyl. Versed will be discontinued as well. Pt. has UTI with and Morganelli treated and sensitive to Rocephin Critical Time Critical Time (minutes): 45 Level of Care: ICU -: 1. The care of a critical patient is a dynamic process. This note is a repre sentative synopsis but static in nature. The timeframe for treatments given in order is not necessarily the actual time these treatments may have been done. 2. This patient requires critical care secondary to ongoing requirements for therapy not offered or safe outside the critical care environment. Transfer to a lower level of care will result in altered life or limb morbidity and mortality. 3. Multidisciplinary rounds completed. 4. ABCDE bundle addressed.
[2019-08-21] MEDS: ACETAZOLAMIDE SODIUM INJ 500 MG VIAL IV SCH (02:36)
[2019-08-21] MEDS: IPRATROPIUM/ALBUTEROL 0.5-2.5 MG/3 ML AMPUL NEB SCH ×3 (03:25→11:36)
[2019-08-21 03:39] LABS: ABSOLUTE BASOPHILS # (AUTO) 0.1 10^3/uL (0.0-0.2); ABSOLUTE LYMPHOCYTES (AUTO) 0.8 10^3/uL (0.5-4.7); ABSOLUTE MONOCYTES (AUTO) 0.6 10^3/uL (0.1-1.4); ABSOLUTE NEUT (AUTO) 11.8 10^3/uL (1.7-8.2); BASOPHILS % (AUTO) 0.5 % (0-2); HEMATOCRIT 44.2 % (37.9-51.0); HEMOGLOBIN 14.4 g/dL (13.5-17.0); MEAN CORPUSCULAR HEMOGLOBIN 30.8 pg (27.0-33.4); MEAN CORPUSCULAR HGB CONC 32.7 g/dL (32.0-36.0); MEAN CORPUSCULAR VOLUME 94 fl (80-97); MONOCYTES % (AUTO) 4.5 % (3-13); PLATELET COUNT 298 10^3/uL (150-450); RED BLOOD COUNT 4.69 10^6/uL (4.35-5.55); RED CELL DISTRIBUTION WIDTH 14.4 % (11.5-14.0); TOTAL CELLS COUNTED % (AUTO) 100 %; WHITE BLOOD COUNT 13.2 10^3/uL (4.0-10.5)
[2019-08-21] MEDS ORDERED: ONDANSETRON HCL INJ/PF 4 MG/2 ML SDV IV ONE (04:30)
[2019-08-21 04:44] LABS: ANION GAP 11 (5-19); BLOOD UREA NITROGEN 27 mg/dL (7-20); CALCIUM 9.2 mg/dL (8.4-10.2); CARBON DIOXIDE 20 mmol/L (22-30); CHLORIDE 113 mmol/L (98-107); GLUCOSE 95 mg/dL (75-110); PHOSPHORUS 4.5 mg/dL (2.5-4.5); POTASSIUM 3.8 mmol/L (3.6-5.0)
[2019-08-21 04:47] LABS: ARTERIAL BLOOD BASE EXCESS -6.5 mmol/L; ARTERIAL BLOOD H2CO3 1.04 mmol/L (1.05-1.35); ARTERIAL BLOOD HCO3 18.3 mmol/L (20-24); ARTERIAL BLOOD O2 SATURATION 97.1 % (94-98); ARTERIAL BLOOD PCO2 34.5 mmHg (35-45); ARTERIAL BLOOD PH 7.34 (7.35-7.45); ARTERIAL BLOOD PO2 96.8 mmHg (80-100); ARTERIAL BLOOD TOTAL CO2 19.3 mmol/L (23-27)
[2019-08-21 04:51] LABS: ARTERIAL BLOOD FIO2 40%
[2019-08-21] MEDS: VANCOMYCIN HCL 1,000 MG in DEXTROSE 5%-WATER 250 ML IV SCH (05:31)
[2019-08-21] MEDS ORDERED: GABAPENTIN 300 MG CAPSULE PO SCH (06:00)
--- NOTE | 2019-08-21 08:28 | RADIOLOGY REPORT (SQ) ---
EXAM DESCRIPTION: CHEST SINGLE VIEW COMPLETED DATE/TIME: 08/21/2019 6:51 am REASON FOR STUDY: effusion COMPARISON: None. NUMBER OF VIEWS: One view. TECHNIQUE: Single frontal radiographic image of the chest acquired. LIMITATIONS: None. FINDINGS: LUNGS AND PLEURA: Stable appearance. MEDIASTINUM AND HEART: Stable heart size and mediastinal structures. SUPPORT DEVICES: Interval removal of nasogastric and endotracheal tubes. BONY STRUCTURES: No acute findings. HARDWARE: None. OTHER: No other significant finding. IMPRESSION: Stable chest status postextubation. Reading location - IP/workstation name: [email or web address]
[2019-08-21] MEDS ORDERED: TAMSULOSIN HCL 0.4 MG CAP.SR.24H PO SCH (10:00)
[2019-08-21] MEDS ORDERED: ASPIRIN 81 MG TABLET, ENT COATED PO SCH (10:00)
[2019-08-21] MEDS: QUETIAPINE FUMARATE 25 MG TABLET PO SCH (10:17)
[2019-08-21] MEDS: METHYLPREDNISOLONE INJ 40 MG/1 ML SDV IV SCH (10:17)
[2019-08-21] MEDS: ENOXAPARIN SODIUM INJ 40 MG/0.4 ML DISP.SYRIN SUBCUT SCH (10:17)
[2019-08-21] MEDS ORDERED: MAG HYDROX/AL HYDROX/SIMETH SUSP 30 ML UDCUP PO PRN (10:39)
[2019-08-21] MEDS ORDERED: ALPRAZOLAM 0.5 MG TABLET PO PRN (14:48)
--- NOTE | 2019-08-21 15:06 | PDOC DISCHARGE SUMMARY ---
Impression - Admit/DC Date/PCP Admission Date/Primary Care Provider: 08/16/19 00:23 BRCOK ETIENNE PA-C Discharge Date: 08/21/19 - Discharge Diagnosis (1) Acute kidney failure Is this a current diagnosis for this admission?: Yes (2) Acute respiratory failure with hypoxia and hypercapnia Is this a current diagnosis for this admission?: Yes (3) COPD exacerbation Is this a current diagnosis for this admission?: Yes (4) ETOH abuse Is this a current diagnosis for this admission?: Yes (5) Obesity (BMI 30-39.9) Is this a current diagnosis for this admission?: Yes - Additional Information Resuscitation Status: Full Code Referrals: BROCK ETIENNE PA-C [Primary Care Provider] - Follow up as needed Home Medications: Alprazolam [Xanax 0.5 mg Tablet] 0.5 mg PO Q12HP PRN 01/12/19 Aspirin [Ecotrin 81 mg EC Tablet] 81 mg PO DAILY 01/12/19 Bupropion HCl [Wellbutrin Xl 300mg 24hr Tablet] 300 mg PO QAM 01/12/19 Montelukast Sodium [Singulair 10 mg Tablet] 10 mg PO QPM 01/12/19 Tamsulosin HCl [Flomax 0.4 mg Cap.sr] 0.4 mg PO DAILY 01/12/19 Gabapentin [Neurontin 300 mg Capsule] 300 mg PO Q8 08/16/19 Meloxicam [Mobic 7.5 mg Tablet] 7.5 mg PO Q12 08/16/19 Venlafaxine HCl 37.5 mg PO Q12 08/16/19 History of Present Illiness History of Present Illness: KAMERON TRUJILLO is a 58 year old male brought in by EMS with hypoxia and altered mental status. Intubated in the ED. Was on hospice, alethea he wants both resucitation and to go home. He states he will sign out if not released. Seems to be back to baseline and discharge is not unreasonable. But a risk he is willing to take. Hospital Course Hospital Course: He was quickly extubated, has done well and is quite anxious to get home. Physical Exam Vital Signs: Temp Pulse Resp BP Pulse Ox 98.4 F 93 37 H 168/95 H 80 L 08/21/19 08:00 08/21/19 11:37 08/21/19 12:00 08/21/19 08:14 08/21/19 10:00 Intake & Output 08/20/19 08/21/19 08/22/19 06:59 06:59 06:59 Intake Total 3394 800 Output Total 7876 0834 200 Balance 1314 -3965 -200 Weight 118.4 kg 115.2 kg 115.2 kg General appearance: PRESENT: no acute distress, well-developed, well-nourished, other - Strong voice. Head exam: PRESENT: atraumatic, normocephalic Eye exam: PRESENT: conjunctiva pink, EOMI, PERRLA. ABSENT: scleral icterus Ear exam: PRESENT: normal external ear exam Mouth exam: PRESENT: moist, tongue midline Respiratory exam: PRESENT: clear to auscultation abi, decreased breath sounds. ABSENT: rales, rhonchi, wheezes Cardiovascular exam: PRESENT: RRR. ABSENT: diastolic murmur, rubs, systolic murmur GI/Abdominal exam: PRESENT: normal bowel sounds, soft. ABSENT: distended, guarding, mass, organolmegaly, rebound, tenderness Rectal exam: PRESENT: deferred Gentrourinary exam: PRESENT: indwelling catheter Extremities exam: PRESENT: full ROM. ABSENT: calf tenderness, clubbing, pedal edema Musculoskeletal exam: PRESENT: normal inspection Neurological exam: PRESENT: alert, awake, oriented to person, oriented to place, oriented to time, oriented to situation, CN II-XII grossly intact. ABSENT: motor sensory deficit Skin exam: PRESENT: dry, intact, warm. ABSENT: cyanosis, rash Results Laboratory Results: WBC 13.2 10^3/uL (4.0-10.5) H 08/21/19 03:24 RBC 4.69 10^6/uL (4.35-5.55) 08/21/19 03:24 Hgb 14.4 g/dL (13.5-17.0) 08/21/19 03:24 Hct 44.2 % (37.9-51.0) 08/21/19 03:24 MCV 94 fl (80-97) 08/21/19 03:24 MCH 30.8 pg (27.0-33.4) 08/21/19 03:24 MCHC 32.7 g/dL (32.0-36.0) 08/21/19 03:24 RDW 14.4 % (11.5-14.0) H 08/21/19 03:24 Plt Count 298 10^3/uL (150-450) 08/21/19 03:24 Lymph % (Auto) 6.0 % (13-45) L 08/21/19 03:24 Giles % (Auto) 4.5 % (3-13) 08/21/19 03:24 Eos % (Auto) 0.0 % (0-6) 08/21/19 03:24 Baso % (Auto) 0.5 % (0-2) 08/21/19 03:24 Absolute Neuts (auto) 11.8 10^3/uL (1.7-8.2) H 08/21/19 03:24 Absolute Lymphs (auto) 0.8 10^3/uL (0.5-4.7) 08/21/19 03:24 Absolute Monos (auto) 0.6 10^3/uL (0.1-1.4) 08/21/19 03:24 Absolute Eos (auto) 0.0 10^3/uL (0.0-0.6) 08/21/19 03:24 Absolute Basos (auto) 0.1 10^3/uL (0.0-0.2) 08/21/19 03:24 Seg Neutrophils % 89.0 % (42-78) H 08/21/19 03:24 PT 14.1 SEC (11.4-15.4) 08/18/19 05:40 INR 1.08 08/18/19 05:40 APTT 28.5 SEC (23.5-35.8) 08/18/19 05:40 Carbonic Acid 1.04 mmol/L (1.05-1.35) L 08/21/19 04:30 HCO3/H2CO3 Ratio 17:1 08/21/19 04:30 ABG pH 7.34 (7.35-7.45) L 08/21/19 04:30 ABG pCO2 34.5 mmHg (35-45) L 08/21/19 04:30 ABG pO2 96.8 mmHg (80-100) 08/21/19 04:30 ABG HCO3 18.3 mmol/L (20-24) L 08/21/19 04:30 ABG Total CO2 19.3 mmol/L (23-27) L 08/21/19 04:30 ABG O2 Saturation 97.1 % (94-98) 08/21/19 04:30 ABG Base Excess -6.5 mmol/L 08/21/19 04:30 FiO2 40% 08/21/19 04:30 Sodium 143.8 mmol/L (137-145) 08/21/19 04:12 Potassium 3.8 mmol/L (3.6-5.0) 08/21/19 04:12 Chloride 113 mmol/L (98-107) H 08/21/19 04:12 Carbon Dioxide 20 mmol/L (22-30) L 08/21/19 04:12 Anion Gap 11 (5-19) 08/21/19 04:12 BUN 27 mg/dL (7-20) H 08/21/19 04:12 Creatinine 1.32 mg/dL (0.52-1.25) H 08/21/19 04:12 Est GFR ( Amer) > 60 (>60) 08/21/19 04:12 Est GFR (Non-Af Amer) Cancelled 08/21/19 03:24 Est GFR (MDRD) Non-Af 55 (>60) L 08/21/19 04:12 Glucose 95 mg/dL (75-110) 08/21/19 04:12 POC Glucose 89 mg/dL (70-110) 08/21/19 06:23 Lactic Acid 1.3 mmol/L (0.7-2.1) 08/15/19 20:37 Calcium 9.2 mg/dL (8.4-10.2) 08/21/19 04:12 Phosphorus 4.5 mg/dL (2.5-4.5) 08/21/19 04:12 Magnesium 2.5 mg/dL (1.6-2.3) H 08/21/19 04:12 Total Bilirubin 0.3 mg/dL (0.2-1.3) 08/15/19 20:37 Direct Bilirubin 0.3 mg/dL (0.0-0.4) 08/15/19 20:37 Neonat Total Bilirubin Not Reportable 08/15/19 20:37 Neonat Direct Bilirubin Not Reportable 08/15/19 20:37 Neonat Indirect Bili Not Reportable 08/15/19 20:37 AST 22 U/L (17-59) 08/15/19 20:37 ALT 14 U/L (<50) 08/15/19 20:37 Alkaline Phosphatase 101 U/L (38-126) 08/15/19 20:37 Troponin I < 0.012 ng/mL 08/15/19 20:37 NT-Pro-B Natriuret Pep 68 pg/mL (<125) 08/15/19 20:37 Total Protein 7.5 g/dL (6.3-8.2) 08/15/19 20:37 Albumin 3.8 g/dL (3.5-5.0) 08/15/19 20:37 EGFR Cancelled 08/21/19 03:24 Urine Color YELLOW 08/15/19 21:30 Urine Appearance SLIGHTLY-CLOUDY 08/15/19 21:30 Urine pH 5.0 (5.0-9.0) 08/15/19 21:30 Ur Specific Sperry 1.010 08/15/19 21:30 Urine Protein NEGATIVE mg/dL (NEGATIVE) 08/15/19 21:30 Urine Glucose (UA) NEGATIVE mg/dL (NEGATIVE) 08/15/19 21:30 Urine Ketones NEGATIVE mg/dL (NEGATIVE) 08/15/19 21:30 Urine Blood NEGATIVE (NEGATIVE) 08/15/19 21:30 Urine Nitrite (Reflex) POSITIVE (NEGATIVE) H 08/15/19 21:30 Urine Bilirubin NEGATIVE (NEGATIVE) 08/15/19 21:30 Urine Urobilinogen NEGATIVE mg/dL (<2.0) 08/15/19 21:30 Leukocyte Esterase Rfl MODERATE (NEGATIVE) H 08/15/19 21:30 Urine RBC (Auto) 1 /HPF 08/15/19 21:30 U Hyaline Cast (Auto) 1 /LPF 08/15/19 21:30 Urine Bacteria (Auto) 1+ /HPF 08/15/19 21:30 Urine WBC (Reflex) 33 /HPF 08/15/19 21:30 Squamous Epi Cells Auto <1 /HPF 08/15/19 21:30 Urine Mucus (Auto) RARE /LPF 08/15/19 21:30 Urine Ascorbic Acid NEGATIVE (NEGATIVE) 08/15/19 21:30 Time Trough Drawn 1357 08/20/19 13:57 Vancomycin Trough 15.8 ug/mL (5.0-20.0) 08/20/19 13:57 Urine Opiates Screen NEGATIVE 08/15/19 21:30 Urine Methadone Screen NEGATIVE 08/15/19 21:30 Ur Barbiturates Screen NEGATIVE 08/15/19 21:30 Ur Phencyclidine Scrn NEGATIVE 08/15/19 21:30 Ur Amphetamines Screen NEGATIVE 08/15/19 21:30 U Benzodiazepines Scrn NEGATIVE 08/15/19 21:30 Urine Cocaine Screen NEGATIVE 08/15/19 21:30 U Marijuana (THC) Screen NEGATIVE 08/15/19 21:30 Serum Alcohol < 10 mg/dL (NONE DETECTED) 08/15/19 20:37 08/15/19 20:37 Troponin I < 0.012 NT-Pro-B Natriuret Pep 68 Impressions: Chest X-Ray 08/15/19 20:32 IMPRESSION: Satisfactory placement of supportive appliances copyright 2011 [employer]- All Rights Reserved Head CT 08/15/19 20:34 IMPRESSION: No acute intracranial findings. Chest X-Ray 08/17/19 08:00 IMPRESSION: Tubes and lines as above. Otherwise unchanged radiographic appearance of the chest. Chest X-Ray 08/18/19 05:00 IMPRESSION: Minimal left and right basilar atelectasis. Tubes and lines in good positioning. Chest X-Ray 08/20/19 06:00 IMPRESSION: Slight improvement. No pneumothorax. Chest X-Ray 08/21/19 06:00 IMPRESSION: Stable chest status postextubation. Plan Health Concerns: Recurrence of COPD Plan of Treatment: Prednisone and follow up with Dr. North capps. Goals: No readmission Critical Time: 30 Level of Care: MEDICAL Stroke Is this a Stroke Patient?: No Acute Heart Failure - Is this a Heart Failure Patient?: No
[2019-08-21 15:08] VITALS: BP 150/92
[2019-08-21] MEDS ORDERED: BUPROPION HCL 100 MG TABLET PO SCH (15:30)
[2019-08-21] MEDS ORDERED: MONTELUKAST SODIUM 10 MG TABLET PO SCH (18:00)
[2019-08-21] MEDS ORDERED: MELOXICAM 7.5 MG TABLET PO SCH (22:00)
[2019-08-21] MEDS ORDERED: VENLAFAXINE HCL 75 MG TABLET PO SCH (22:00)
[2019-08-21] MEDS ORDERED: (PENDING PHARMACY ID) (Venlafaxine Hcl [Venlafaxine Hcl] 37.5 MG) PO SCH (22:00)
== END 2019-08-21 15:40 | disposition home health service (06) | DRG 207 ==
LOC: ER 20:11 → EH 08-16 00:23 → ICU 08-16 01:03
PROVIDERS: ADMIT Family Medicine; ATTEND Family Medicine
PROC: 0BH17EZ Insertion of Endotracheal Airway into Trachea, Via Natural or Artificial Opening (ICD-10-PCS; principal; 2019-08-15)
PROC: 5A1955Z Respiratory Ventilation, Greater than 96 Consecutive Hours (ICD-10-PCS; 2019-08-15)
PROC: 02HV33Z Insertion of Infusion Device into Superior Vena Cava, Percutaneous Approach (ICD-10-PCS; 2019-08-15)
DX: J96.21 Acute and chronic respiratory failure with hypoxia (principal); R40.2212 Coma scale, best verbal response, none, at arrival to emergency department; R40.2112 Coma scale, eyes open, never, at arrival to emergency department; G93.41 Metabolic encephalopathy; J44.1 Chronic obstructive pulmonary disease with (acute) exacerbation; N39.0 Urinary tract infection, site not specified; I13.0 Hypertensive heart and chronic kidney disease with heart failure and stage 1 through stage 4 chronic kidney disease, or unspecified chronic kidney disease; N17.9 Acute kidney failure, unspecified; J96.22 Acute and chronic respiratory failure with hypercapnia; E87.5 Hyperkalemia; Z79.82 Long term (current) use of aspirin; Z79.899 Other long term (current) drug therapy; G89.29 Other chronic pain; E66.01 Morbid (severe) obesity due to excess calories; B96.4 Proteus (mirabilis) (morganii) as the cause of diseases classified elsewhere; R40.2352 Coma scale, best motor response, localizes pain, at arrival to emergency department; Z78.1 Physical restraint status; F17.200 Nicotine dependence, unspecified, uncomplicated; I48.91 Unspecified atrial fibrillation; I50.9 Heart failure, unspecified; N18.9 Chronic kidney disease, unspecified; F32.9 Major depressive disorder, single episode, unspecified; F10.20 Alcohol dependence, uncomplicated; Z91.14 Patient's other noncompliance with medication regimen; Z68.37 Body mass index [BMI] 37.0-37.9, adult
CPT/HCPCS: 36415; 36600; 70450; 71045; 71250; 80048; 80053; 80202; 80307; 81001; 82565; 82803; 82962; 83605; 83735; 83880; 84100; 84484; 85025; 85610; 85730; 87040; 87070; 87077; 87086; 87088; 87150; 87186; 87205; 93005; 93010; 94002; 94003; 94640; 94660; 96361; 96374; 96375; 96376; 99238; 99291; 99292; C9113; J0330; J0360; J0610; J0696; J1120; J1650; J1815; J1956; J2060; J2250; J2405; J2704; J2920; J2930; J3370; J3490; J7040; J7060; J7120; J7620

== ENCOUNTER → 2019-11-16 | Emergency (ER) | payer OTHER, BC ==
[~2019-11-16] MED LIST changes: +CEFTRIAXONE 1 GM/D5W RTU 1 GM/50 ML RTUPB IV ONE; -SUCCINYLCHOLINE CHLORIDE INJ 200 MG/10 ML VIAL ONE; +VANCOMYCIN HCL INJ 1000 MG VIAL IV ONE
--- NOTE | 2019-11-16 16:42 | ER Document Report ---
ED General - General Mode of Arrival: Ambulatory Information source: Patient TRAVEL OUTSIDE OF THE [place] IN LAST 30 DAYS: No - HPI Onset: Other - 3 days ago Onset/Duration: Gradual Quality of pain: No pain Severity: None Pain Level: Denies Associated symptoms: Shortness of breath, Other - bilateral lower extremity edema Exacerbated by: Supine Relieved by: Sitting Similar symptoms previously: Yes <ALAN LEON - Last Filed: 11/16/19 16:44> <JOLANTA CASE - Last Filed: 11/17/19 03:08> - General Chief Complaint: Breathing Difficulty Stated Complaint: SHORTNESS OF BREATH Time Seen by Provider: 11/16/19 15:46 [facility] Provider: [facility] [Primary [facility] Provider] - Follow up as needed Notes: 59 y/o male with a pmhx of CHF presenting with shortness of breath x 3 days and bilateral lower extremity edema. Shortness of breath exacerbated by laying down is most comfortable sitting up. Denies any fevers, chills, chest pain, cough, abdominal pain. Does report decreased frequency and urinary output for 3 days. (ALAN LOEN) - Related Data Allergies/Adverse Reactions: No Known Allergies Allergy (Verified 10/21/17 13:20) Past Medical History - Social History Smoking Status: Former Smoker Chew tobacco use (# tins/day): Yes - dip Frequency of alcohol use: None Drug Abuse: None Family History: Reviewed & Not Pertinent, Hypertension Patient has homicidal ideation: No - Past Medical History Cardiac Medical History: Reports: Hx Atrial Fibrillation, Hx Congestive Heart Failure, Hx Hypertension Pulmonary Medical History: Reports: Hx COPD - on 5L home O2, Hx Pneumonia, Hx Intubation - 11/11/18, Hx Respiratory Failure, Hx Sleep Apnea - noncompliant with CPAP Endocrine Medical History: Denies: Hx Diabetes Mellitus Type 1, Hx Diabetes Mellitus Type 2 Renal/ Medical History: Reports: Hx End Stage Renal Disease. 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 Musculoskeletal Medical History: Denies Hx Fibromyalgia Psychiatric Medical History: Reports: Hx Depression Traumatic Medical History: Denies: Hx Gunshot Wound, Hx Pneumothorax Infectious Medical History: Denies: Hx C-Diff, Hx HIV Past Surgical History: Reports: Other - Immunizations Hx Pneumococcal Vaccination: 07/01/17 <ALAN LEON - Last Filed: 11/16/19 16:44> Review of Systems - Review of Systems Constitutional: No symptoms reported EENT: No symptoms reported Cardiovascular: Dyspnea Respiratory: Short of breath Gastrointestinal: No symptoms reported <ALAN LEON - Last Filed: 11/16/19 16:44> Physical Exam - Vital signs Vitals: Temp 97.9 F 11/16/19 16:11 Course - Laboratory Result Diagrams: 11/16/19 16:30 11/16/19 16:30 <JOLANTA CASE - Last Filed: 11/17/19 03:08> - Re-evaluation Re-evalutation: 11/16/19 22:10 Patient is a 59-year-old male with a history of CHF, COPD, smoking, and recent hospitalization with intubation on 08/16/2019. Patient has a CT today showing near collapse of the right middle lobe with also consolidation in the right middle lobe suggesting pneumonia. CT in August did not show the right middle lobe collapse. Radiologist recommendation on report is close follow-up or alternatively bronchoscopy. Patient has increasing shortness of breath, orthopnea. Patient is on oxygen at baseline. We do not have pulmonology content assistant now or in the foreseeable future. Hospitalist has recommended transfer because of lack of pulmonology. Patient has been discussed with Dr. Aleman. Patient elected for [facility] after discussion. 11/16/[address] Juani Bradshaw, hospitalist at [facility] er, patient is accepted for transfer. I reevaluated patient at bedside and discussed with him, he states appreciation and agreement. He states he wanted his scrotum checked because he thinks he is bleeding, on evaluation there is no bleeding from the scrotum but there does appear to be some bloody urine in his brief, this is most likely from his cystitis which is seen on CAT scan and on laboratory work-up. He has received Rocephin for this. Patient was also given vancomycin, 11/17/19 03:00 Patient has been reevaluated at bedside. No noted change in vital signs, patient alert, conversational, well-appearing. Transport team is here. Patient stable for transfer. (JOLANTA CASE) - Vital Signs Vital signs: Temp Pulse Resp BP Pulse Ox 98 F 70 18 105/94 H 95 11/16/19 16:15 11/16/19 18:53 11/17/19 02:06 11/17/19 02:06 11/17/19 02:06 - Laboratory Laboratory results interpreted by me: 11/16/19 11/16/19 11/16/19 16:30 16:30 16:50 RBC 4.01 L Hgb 12.7 L RDW 16.4 H Carbon Dioxide 37 H Anion Gap 2 L BUN 34 H Urine Protein 30 H Urine Nitrite POSITIVE H Ur Leukocyte Esterase LARGE H Urine Ascorbic Acid 40 H Discharge <ALAN LEON - Last Filed: 11/16/19 16:44> <JOLANTA CASE - Last Filed: 11/17/19 03:08> - Discharge Clinical Impression: Difficulty breathing, Collapse of lung tissue, Tobacco abuse Pneumonia Qualifiers: Pneumonia type: due to unspecified organism Laterality: right Lung location: unspecified part of lung Qualified Code(s): J18.9 - Pneumonia, unspecified organism Disposition: [facility] Referrals: [facility] [Primary Care Provider] - Follow up as needed
--- NOTE | 2019-11-16 16:55 | RADIOLOGY REPORT (SQ) ---
EXAM DESCRIPTION: CHEST SINGLE VIEW IMAGES COMPLETED DATE/TIME: 11/16/2019 4:45 pm REASON FOR STUDY: shortness of breath COMPARISON: 08/21/2019 EXAM PARAMETERS: NUMBER OF VIEWS: One view. TECHNIQUE: Single frontal radiographic view of the chest acquired. RADIATION DOSE: NA LIMITATIONS: None. FINDINGS: LUNGS AND PLEURA: Low lung volumes. Elevation of the right hemidiaphragm, unchanged find ing. No acute pulmonary consolidation. No pneumothorax or pleural effusion. MEDIASTINUM AND HILAR STRUCTURES: No masses. Contour normal. HEART AND VASCULAR STRUCTURES: Heart normal in size. Normal vasculature. BONES: No acute findings. HARDWARE: None in the chest. OTHER: No other significant finding. IMPRESSION: 1. Elevation of the right hemidiaphragm, unchanged finding. Low lung volumes. No acut e pulmonary findings. TECHNICAL DOCUMENTATION: JOB ID: [id number] 2010 [employer]- All Rights Reserved Reading location - IP/workstation name: [email or web address]
[2019-11-16 17:21] LABS: AMORPHOUS SEDIMENT,URINE TRACE /HPF; APPEARANCE,URINE SLIGHTLY-CLOUDY; BILIRUBIN,URINE NEGATIVE (NEGATIVE); COLOR,URINE YELLOW; GLUCOSE, URINE NEGATIVE (NEGATIVE); KETONES,URINE NEGATIVE (NEGATIVE); LEUKOCYTE ESTERASE,URINE LARGE (NEGATIVE); NITRITE,URINE POSITIVE (NEGATIVE); PROTEIN,URINE 30 mg/dL (NEGATIVE); URINE SPECIFIC GRAVITY 1.021; UROBILINOGEN,URINE NEGATIVE mg/dL (<2.0)
[2019-11-16 17:31] LABS: ABSOLUTE BASOPHILS # (AUTO) 0.1 10^3/uL (0.0-0.2); ABSOLUTE EOSINOPHILS # (AUTO) 0.1 10^3/uL (0.0-0.6); ABSOLUTE LYMPHOCYTES (AUTO) 1.5 10^3/uL (0.5-4.7); ABSOLUTE MONOCYTES (AUTO) 0.7 10^3/uL (0.1-1.4); ABSOLUTE NEUT (AUTO) 5.6 10^3/uL (1.7-8.2); BASOPHILS % (AUTO) 0.8 % (0-2); EOSINOPHILS % (AUTO) 1.8 % (0-6); HEMATOCRIT 38.5 % (37.9-51.0); HEMOGLOBIN 12.7 g/dL (13.5-17.0); LYMPHOCYTES % (AUTO) 18.2 % (13-45); MEAN CORPUSCULAR HEMOGLOBIN 31.6 pg (27.0-33.4); MEAN CORPUSCULAR HGB CONC 32.9 g/dL (32.0-36.0); MEAN CORPUSCULAR VOLUME 96 fl (80-97); MONOCYTES % (AUTO) 8.9 % (3-13); PLATELET COUNT 276 10^3/uL (150-450); RED BLOOD COUNT 4.01 10^6/uL (4.35-5.55); RED CELL DISTRIBUTION WIDTH 16.4 % (11.5-14.0); SEGMENTED NEUTROPHILS % (AUTO) 70.3 % (42-78); TOTAL CELLS COUNTED % (AUTO) 100 %
[2019-11-16 17:50] LABS: ALBUMIN 3.7 g/dL (3.5-5.0); ALKALINE PHOSPHATASE 86 U/L (38-126); ASPARTATE AMINO TRANSFERASE 19 U/L (17-59); BILIRUBIN,TOTAL 0.6 mg/dL (0.2-1.3); BLOOD UREA NITROGEN 34 mg/dL (7-20); CALCIUM 8.9 mg/dL (8.4-10.2); GLUCOSE 97 mg/dL (75-110); POTASSIUM 4.9 mmol/L (3.6-5.0); TOTAL PROTEIN 6.8 g/dL (6.3-8.2)
[2019-11-16 17:55] LABS: CARBON DIOXIDE 37 mmol/L (22-30); CHLORIDE 99 mmol/L (98-107)
[2019-11-16 17:56] LABS: ANION GAP 2 (5-19)
[2019-11-16 18:00] LABS: NT PRO BNP 72 pg/mL (<125)
[2019-11-16 18:02] LABS: TROPONIN I < 0.012 ng/mL
--- NOTE | 2019-11-16 20:28 | RADIOLOGY REPORT (SQ) ---
EXAM DESCRIPTION: CT ABDOMEN PELVIS WITHOUT IV CONTRAST COMPLETED DATE/TME: 11/16/2019 18:25 CLINICAL HISTORY: 59 years, Male, UTI with flank pain COMPARISON: Prior CT chest dated 08/15/2019. TECHNIQUE: Noncontrast CT of the abdomen/pelvis was acquired. Coronal and sagittal reformations were created. Images stored on PACS. All CT scanners at this facility use dose modulation, iterative reconstruction, and/or weight based dosing when appropriate to reduce radiation dose to as low as reasonably achievable (ALARA). [facility]: Dose Right [facility]: CareDose [facility]: Dose Right [facility]: Teradose 4D [facility]: GEOCOMtms LIMITATIONS: None. FINDINGS: Limited evaluation of the lower chest reveals near-complete collapse of the right middle lobe. Additional areas of consolidation are evident about the right lower lobe. Superimposed bands of opacity are noted about the lingula, likely indicating areas of atelectasis or scar. The right hemidiaphragm is elevated. The liver, spleen, pancreas, gallbladder, and both adrenal glands appear normal. Subcentimeter low-density lesion is noted about the interpolar region of the right kidney, too small to accurately characterize. No hydronephrosis or hydroureter. The urinary bladder appears diffusely thick-walled. Small and large bowel are normal in caliber. No evidence of bowel obstruction. Appendix is normal. Small fat-containing umbilical hernia. Calcifications are evident about the abdominal aorta. No suspicious lymphadenopathy or drainable fluid collections are appreciated. Bone windows show no destructive osseous lesions. IMPRESSION: Circumferential bladder wall thickening. Correlate for cystitis. Near-complete collapse of the right middle lobe with additional right lower lobe consolidation. The right lower lobe consolidation could indicate additional atelectasis or pneumonia/aspiration. Otherwise, the etiology of the near-complete right middle lobe collapse is uncertain. Short interval follow-up is recommended to assess for resolution (3 months). Alternatively, this could be further assessed with bronchoscopy. TECHNICAL DOCUMENTATION: Quality ID # [id number]: Final reports with documentation of one or more dose reduction techniques (e.g., Automated exposure control, adjustment of the mA and/or kV according to patient size, use of iterative reconstruction technique) copyright 2011 [employer]- All Rights Reserved
--- NOTE | 2019-11-16 21:26 | ER Document Report ---
ED General - General Chief Complaint: Breathing Difficulty Stated Complaint: SHORTNESS OF BREATH Time Seen by Provider: 11/16/19 15:46 Primary Care Provider: [facility] [[facility]] - Follow up as needed Mode of Arrival: Ambulatory TRAVEL OUTSIDE OF THE [place] IN LAST 30 DAYS: No - Related Data Allergies/Adverse Reactions: No Known Allergies Allergy (Verified 10/21/17 13:20) Past Medical History - General Information source: Patient - Social History Smoking Status: Former Smoker Chew tobacco use (# tins/day): Yes - dip Frequency of alcohol use: None Drug Abuse: None Family History: Reviewed & Not Pertinent, Hypertension Patient has homicidal ideation: No - Past Medical History Cardiac Medical History: Reports: Hx Atrial Fibrillation, Hx Congestive Heart Failure, Hx Hypertension Pulmonary Medical History: Reports: Hx COPD - on 5L home O2, Hx Pneumonia, Hx Intubation - 11/11/18, Hx Respiratory Failure, Hx Sleep Apnea - noncompliant with CPAP Endocrine Medical History: Denies: Hx Diabetes Mellitus Type 1, Hx Diabetes Mellitus Type 2 Renal/ Medical History: Reports: Hx End Stage Renal Disease. 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 Cee. Medicine provider believes patient best served in a facility with pulmonolgy capabilities. 11/16/19 21:29 Provided verbal turn over with Eran Lyle PA-C - Vital Signs Vital signs: Temp Pulse Resp BP Pulse Ox 98 F 70 25 H 140/78 H 97 11/16/19 16:15 11/16/19 18:53 11/16/19 18:53 11/16/19 18:53 11/16/19 18:53 - Laboratory Result Diagrams: 11/16/19 16:30 11/16/19 16:30 Laboratory results interpreted by me: 05/18/20 05/18/20 05/18/20 16:30 16:30 16:50 RBC 4.01 L Hgb 12.7 L RDW 16.4 H Carbon Dioxide 37 H Anion Gap 2 L BUN 34 H Urine Protein 30 H Urine Nitrite POSITIVE H Ur Leukocyte Esterase LARGE H Urine Ascorbic Acid 40 H - Diagnostic Test Radiology reviewed: Reports reviewed Discharge - Discharge Referrals: [facility] [Primary [facility]] - Follow up as needed
--- NOTE | 2019-11-16 23:42 | EKG REPORT ---
SEVERITY:- NORMAL ECG - SINUS RHYTHM : Confirmed by: Carlota Joseph MD 16-Nov-2019 23:41:29
[2019-11-17 02:34] VITALS: BP 105/94
== END | disposition short-term general hospital (02) ==
LOC: ER 15:32
DX: R06.02 Shortness of breath (principal); J98.19 Other pulmonary collapse; F17.200 Nicotine dependence, unspecified, uncomplicated; R60.0 Localized edema; I50.9 Heart failure, unspecified; R35.0 Frequency of micturition; R33.9 Retention of urine, unspecified; I11.0 Hypertensive heart disease with heart failure; J44.9 Chronic obstructive pulmonary disease, unspecified; Z99.81 Dependence on supplemental oxygen; Z20.828 Contact with and (suspected) exposure to other viral communicable diseases
CPT/HCPCS: 93005; 99285; 96365; 96366; 96367; 36415; 87086; 85025; 87635; 87088; 80053; 81001; 84484; 87186; 83880; 71045; 74176; 93010; J3370; J0696

== ENCOUNTER 2020-01-01 12:51 | Inpatient (IN) | payer OTHER, BC ==
--- NOTE | 2020-01-01 13:44 | RADIOLOGY REPORT (SQ) ---
EXAM DESCRIPTION: CHEST SINGLE VIEW IMAGES COMPLETED DATE/TIME: 01/01/2020 1:35 pm REASON FOR STUDY: sob COMPARISON: 11/16/2019 EXAM PARAMETERS: NUMBER OF VIEWS: One view. TECHNIQUE: Single frontal radiographic view of the chest acquired. RADIATION DOSE: NA LIMITATIONS: None. FINDINGS: LUNGS AND PLEURA: Re- demonstration of elevation of the right hemidiaphragm. No focal con solidation, pleural effusion, or pneumothorax. MEDIASTINUM AND HILAR STRUCTURES: No masses. Contour normal. HEART AND VASCULAR STRUCTURES: Mild cardiomegaly without central vascular congestion. BONES: No acute findings. HARDWARE: None in the chest. OTHER: No other significant finding. IMPRESSION: NO ACUTE RADIOGRAPHIC FINDING IN THE CHEST. TECHNICAL DOCUMENTATION: JOB ID: [id number] 2010 [employer]- All Rights Reserved Reading location - IP/workstation name: [email or web address]
[2020-01-01] MEDS ORDERED: BUMETANIDE INJ/PF 1 MG/4 ML SDV IV ONE (15:44)
--- NOTE | 2020-01-01 15:44 | ER Document Report ---
ED General - General Chief Complaint: Shortness Of Breath Stated Complaint: SWOLLEN EXTRMITIES/SHORTNESS OF BREATH Time Seen by Provider: 01/01/20 15:40 Primary Care Provider: JOB,IFEANYI [Primary Care Provider] - Follow up as needed Mode of Arrival: Ambulatory Information source: Patient Notes: 01/01/20 14:14 - ED Nursing Note by MANUEL COCHRAN Num: [id number] : 1960 Patient Age: 59 patient presents to the ED with shortness of breath. patient states he has swelling in his legs. Patients states that patient was laying on bed and his lower stomach seem to be swollen. patient states that swelling began in the legs 7 days ago. SOB started this morning. patient denies NV, fever, chills, cough. patient has a HX of COPD and CHF. patient takes 2 L NC at home. patient placed on 2 L NC on arrival to ED. o2 stat was at 88 percent. Patient o2 increased to 4L and o2 stat increased to 94 percent. AOx4, patient breathing improves when sitting upright, speaking in clear and complete statements. my notes 59-year-old male arrives with his with chief complaint of having increased swelling in his legs with left leg with erythema. 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 Barahona. 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 I spoke with him about this case and then spoke with Dr. Perera around 1715 for potential admission.. Patient has positive cellulitis of left lower leg with UTI on labs. Chest x-ray today with no edema but positive cardiomegaly and COPD.. TRAVEL OUTSIDE OF THE [place] IN LAST 30 DAYS: No - HPI Onset: Last week Onset/Duration: Gradual, Persistent, Worse Quality of pain: Achy Severity: Mild Pain Level: 1 Associated symptoms: Leg swelling - And redness to left leg from foot ankle to his knee, Shortness of breath, Weakness Exacerbated by: Movement, Walking, Deep breathing - Related Data Allergies/Adverse Reactions: No Known Allergies Allergy (Verified 10/21/17 13:20) Past Medical History - General Information source: Patient - Social History Smoking Status: Smoker,Current Status Unk Cigarette use (# per day): Yes Chew tobacco use (# tins/day): No Smoking Education Provided: Yes Frequency of alcohol use: Occasional Drug Abuse: None Lives with: Family Family History: Reviewed & Not Pertinent, Hypertension Patient has suicidal ideation: No Patient has homicidal ideation: No - Past Medical History Cardiac Medical History: Reports: Hx Atrial Fibrillation, Hx Congestive Heart Fa ilure, Hx Hypertension Pulmonary Medical History: Reports: Hx COPD - on 5L home O2, Hx Pneumonia, Hx Intubation - 11/11/18, Hx Respiratory Failure, Hx Sleep Apnea - noncompliant with CPAP Endocrine Medical History: Denies: Hx Diabetes Mellitus Type 1, Hx Diabetes Mellitus Type 2 Renal/ Medical History: Reports: Hx End Stage Renal Disease. 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 Musculoskeletal Medical History: Denies Hx Fibromyalgia Psychiatric Medical History: Reports: Hx Depression Traumatic Medical History: Denies: Hx Gunshot Wound, Hx Pneumothorax Infectious Medical History: Denies: Hx C-Diff, Hx HIV Past Surgical History: Reports: Other - Immunizations Hx Pneumococcal Vaccination: 07/01/17 Review of Systems - Review of Systems Constitutional: Weakness EENT: No symptoms reported Cardiovascular: No symptoms reported Respiratory: See HPI, Cough, Short of breath Gastrointestinal: No symptoms reported Genitourinary: No symptoms reported Male Genitourinary: No symptoms reported Musculoskeletal: See HPI, Joint swelling, Leg swelling, Ankle swelling Skin: No symptoms reported Hematologic/Lymphatic: No symptoms reported Neurological/Psychological: No symptoms reported Physical Exam - Vital signs Vitals: Temp Pulse Resp Pulse Ox 98.4 F 93 24 H 93 01/01/20 13:12 01/01/20 13:12 01/01/20 13:12 01/01/20 13:12 Interpretation: Tachypneic - General General appearance: Alert - HEENT Head: Normocephalic, Atraumatic Eyes: Normal Pupils: PERRL Mouth/Lips: Normal Mucous membranes: Normal Pharynx: Normal Neck: Normal - Respiratory Respiratory status: No respiratory distress Chest status: Nontender Breath sounds: Normal Chest palpation: Normal - Cardiovascular Rhythm: Regular Heart sounds: Normal auscultation Murmur: No - Abdominal Inspection: Normal Distension: No distension Bowel sounds: Normal Tenderness: Nontender Organomegaly: No organomegaly - Rectal Hemorrhoids: Other - deferred - Genitourinary Tenderness: Other - deferred - Back Back: Normal - Extremities General lower extremity: Edema - erythema - Neurological Neuro grossly intact: Yes Cognition: Normal Orientation: AAOx4 [place] Coma Scale Eye Opening: Spontaneous [place] Coma Scale Verbal: Oriented [place] Coma Scale Motor: Obeys Commands [place] Coma Scale Total: 15 Speech: Normal Motor strength normal: LUE, RUE, LLE, RLE Sensory: Normal - Psychological Associated symptoms: Normal affect - Skin Skin Temperature: Warm Skin Moisture: Dry Course - Vital Signs Vital signs: Temp Pulse Resp BP Pulse Ox 98.4 F 96 28 H 139/77 H 95 01/01/20 13:12 01/01/20 16:33 01/01/20 16:33 01/01/20 16:33 01/01/20 16:33 - Laboratory Result Diagrams: 01/01/20 13:28 01/01/20 13:28 Laboratory results interpreted by me: 01/01/20 01/01/20 01/01/20 13:28 13:28 13:28 RBC 4.21 L RDW 15.6 H VBG pH 7.28 L VBG pCO2 83.1 H* VBG HCO3 37.9 H Chloride 96 L Carbon Dioxide 38 H Anion Gap 3 L BUN 24 H Urine Blood Urine Nitrite Ur Leukocyte Esterase 01/01/20 16:53 RBC RDW VBG pH VBG pCO2 VBG HCO3 Chloride Carbon Dioxide Anion Gap BUN Urine Blood SMALL H Urine Nitrite POSITIVE H Ur Leukocyte Esterase LARGE H Critical Care Note - Critical Care Note Total time excluding time spent on procedures (mins): 90 Discharge - Discharge Clinical Impression: COPD exacerbation COPD (chronic obstructive pulmonary disease) Qualifiers: COPD type: unspecified COPD Qualified Code(s): J44.9 - Chronic obstructive pulmonary disease, unspecified UTI (urinary tract infection) Qualifiers: Urinary tract infection type: site unspecified Hematuria presence: without hematuria Qualified Code(s): N39.0 - Urinary tract infection, site not specified Condition: Fair Disposition: ADMITTED INPATIENT [facility] [[facility] - Follow up as needed
[2020-01-01] MEDS ORDERED: METOLAZONE 5 MG TABLET PO ONE (15:45)
[2020-01-01 15:58] LABS: ABSOLUTE BASOPHILS # (AUTO) 0.1 10^3/uL (0.0-0.2); ABSOLUTE EOSINOPHILS # (AUTO) 0.2 10^3/uL (0.0-0.6); ABSOLUTE LYMPHOCYTES (AUTO) 1.6 10^3/uL (0.5-4.7); ABSOLUTE MONOCYTES (AUTO) 0.8 10^3/uL (0.1-1.4); ABSOLUTE NEUT (AUTO) 6.8 10^3/uL (1.7-8.2); BASOPHILS % (AUTO) 0.6 % (0-2); HEMATOCRIT 40.9 % (37.9-51.0); HEMOGLOBIN 13.5 g/dL (13.5-17.0); LYMPHOCYTES % (AUTO) 16.8 % (13-45); MEAN CORPUSCULAR HEMOGLOBIN 32.2 pg (27.0-33.4); MEAN CORPUSCULAR HGB CONC 33.1 g/dL (32.0-36.0); MEAN CORPUSCULAR VOLUME 97 fl (80-97); MONOCYTES % (AUTO) 8.2 % (3-13); PLATELET COUNT 230 10^3/uL (150-450); RED BLOOD COUNT 4.21 10^6/uL (4.35-5.55); RED CELL DISTRIBUTION WIDTH 15.6 % (11.5-14.0); SEGMENTED NEUTROPHILS % (AUTO) 72.4 % (42-78); TOTAL CELLS COUNTED % (AUTO) 100 %; WHITE BLOOD COUNT 9.4 10^3/uL (4.0-10.5)
[2020-01-01 16:02] LABS: VENOUS BLOOD BASE EXCESS 7.8 mmol/L; VENOUS BLOOD HCO3 37.9 mmol/L (20-32); VENOUS BLOOD PH 7.28 (7.30-7.42)
[2020-01-01 16:19] LABS: VENOUS BLOOD PCO2 83.1 mmHg (35-63)
[2020-01-01 16:34] LABS: ALKALINE PHOSPHATASE 104 U/L (38-126); ASPARTATE AMINO TRANSFERASE 22 U/L (17-59); BILIRUBIN,DIRECT 0.1 mg/dL (0.0-0.4); BILIRUBIN,TOTAL 0.5 mg/dL (0.2-1.3); BLOOD UREA NITROGEN 24 mg/dL (7-20); CALCIUM 9.2 mg/dL (8.4-10.2); CARBON DIOXIDE 38 mmol/L (22-30); CHLORIDE 96 mmol/L (98-107); GLUCOSE 98 mg/dL (75-110); POTASSIUM 4.7 mmol/L (3.6-5.0); TOTAL PROTEIN 7.3 g/dL (6.3-8.2)
[2020-01-01 16:35] LABS: ANION GAP 3 (5-19)
[2020-01-01 17:13] LABS: APPEARANCE,URINE SLIGHTLY-CLOUDY; BILIRUBIN,URINE NEGATIVE (NEGATIVE); COLOR,URINE YELLOW; GLUCOSE, URINE NEGATIVE (NEGATIVE); KETONES,URINE NEGATIVE (NEGATIVE); LEUKOCYTE ESTERASE,URINE LARGE (NEGATIVE); NITRITE,URINE POSITIVE (NEGATIVE); PROTEIN,URINE NEGATIVE (NEGATIVE); URINE SPECIFIC GRAVITY 1.017; UROBILINOGEN,URINE NEGATIVE mg/dL (<2.0)
[2020-01-01] MEDS ORDERED: CEFTRIAXONE INJ 1000 MG VIAL IV ONE (17:21)
[2020-01-01] MEDS ORDERED: LIDOCAINE 1% INJ-PF (10 MG/ML) 30 ML SDV ONE (17:28)
[2020-01-01] MEDS ORDERED: ALBUTEROL SULFATE 0.083% NEB 2.5 MG/3 ML AMPUL NEB PRN (18:07)
[2020-01-01] MEDS ORDERED: MAG HYDROX/AL HYDROX/SIMETH SUSP 30 ML UDCUP PO PRN (18:13)
[2020-01-01] MEDS ORDERED: ONDANSETRON HCL INJ/PF 4 MG/2 ML SDV IV PRN (18:13)
[2020-01-01] MEDS ORDERED: MEROPENEM 1 GM VIAL IV PRN (18:30)
[2020-01-01] MEDS ORDERED: NICOTINE 14 MG/24 HR PATCH.TD24 TD PRN (18:35)
--- NOTE | 2020-01-01 18:38 | PDOC H&P ---
History of Present Illness Admission Date/PCP: [facility] Patient complains of: Dyspnea on exertion History of Present Illness: KAMERON TRUJILLO is a 59 year old male with a history of CHF, COPD on home oxygen 2 L nasal cannula, nocturnal BiPAP, who presents to the hospital with complaints of increased shortness of breath for the past few days as well as lower ex tremity swelling for the past 2 weeks. He admits to having rhinorrhea, nasal congestion as well. Also admits to diarrhea. Complains of notable increased progressive dyspnea on exertion and limiting his exercise tolerance. States that he takes his Lasix but misses some doses. Denies any fever or chills. Denies any sick contacts. He denies any loss of smell or taste. Denies nausea or vomiting. Denies any worsening of his orthopnea. Admits to occasional PND. He does not seem to have any significant cough or sputum production. Also complains of dysuria. Had presented to the hospital back in October at which time he was transferred to [facility] for evaluation of right mid lung collapse. Past Medical History Cardiac Medical History: Reports: Atrial Fibrillation, Congestive Heart Failure, Hypertension Pulmonary Medical History: Reports: Chronic Obstructive Pulmonary Disease (COPD) - on 5L home O2, Intubation - 11/11/18, Pneumonia, Respiratory Failure, Sleep Apnea - noncompliant with CPAP Endocrine Medical History: Denies: Diabetes Mellitus Type 1, Diabetes Mellitus Type 2 Musculoskeltal Medical History: Denies: Fibromyalgia Psychiatric Medical History: Reports: Depression Traumatic Medical History: Denies: Gunshot Wound, Pneumothorax Hematology: Denies: Sickle Cell Disease Infectious Medical History: Denies: Clostridium Difficile, HIV Past Surgical History Past Surgical History: Reports: Other Social History Lives with: Spouse/Significant other Smoking Status: Former Smoker Frequency of Alcohol Use: Social Hx Recreational Drug Use: Yes Drugs: None Hx Prescription Drug Abuse: Yes - Advance Directive Resuscitation Status: Full Code Family History Family History: Hypertension Parental Family History Reviewed: Yes Children Family History Reviewed: Unknown Sibling(s) Family History Reviewed.: Unknown Medication/Allergy Home Medications: Alprazolam [Xanax 0.5 mg Tablet] 0.5 mg PO Q12HP PRN 01/12/19 Aspirin [Ecotrin 81 mg EC Tablet] 81 mg PO DAILY 01/12/19 Bupropion HCl [Wellbutrin Xl 300mg 24hr Tablet] 300 mg PO QAM 01/12/19 Montelukast Sodium [Singulair 10 mg Tablet] 10 mg PO QPM 01/12/19 Tamsulosin HCl [Flomax 0.4 mg Cap.sr] 0.4 mg PO DAILY 01/12/19 Gabapentin [Neurontin 300 mg Capsule] 300 mg PO Q8 08/16/19 Meloxicam [Mobic 7.5 mg Tablet] 7.5 mg PO Q12 08/16/19 Venlafaxine HCl 37.5 mg PO Q12 08/16/19 Allergies/Adverse Reactions: No Known Allergies Allergy (Verified 10/21/17 13:20) Review of Systems Constitutional: PRESENT: chills. ABSENT: fever(s) Eyes: ABSENT: visual disturbances Ears: ABSENT: hearing changes Nose, Mouth, and Throat: ABSENT: headache(s) Cardiovascular: PRESENT: dyspnea on exertion. ABSENT: chest pain Respiratory: PRESENT: dyspnea. ABSENT: hemoptysis, sputum Gastrointestinal: ABSENT: abdominal pain, nausea, vomiting Genitourinary: PRESENT: dysuria Integumentary: ABSENT: diaphoresis Neurological: ABSENT: confusion, dizziness Psychiatric: ABSENT: anxiety Endocrine: ABSENT: polyuria Allergic/Immunologic: PRESENT: other - Admits to rhinorrhea and nasal congestion Physical Exam Vital Signs: Temp Pulse Resp BP Pulse Ox 98.4 F 96 22 H 131/75 H 98 01/01/20 13:12 01/01/20 16:33 01/01/20 18:12 01/01/20 18:12 01/01/20 18:12 Intake & Output 12/31/19 01/01/20 01/02/20 06:59 06:59 06:59 Weight 124 kg General appearance: PRESENT: no acute distress, cooperative, morbidly obese Mouth exam: PRESENT: neck supple Neck exam: ABSENT: JVD Respiratory exam: PRESENT: unlabored. ABSENT: symmetrical, tachypnea, wheezes Cardiovascular exam: PRESENT: RRR, +S1, +S2. ABSENT: tachycardia GI/Abdominal exam: PRESENT: soft. ABSENT: rebound, rigid, tenderness Extremities exam: PRESENT: +2 edema - Bilateral lower extremity. ABSENT: calf tenderness Neurological exam: PRESENT: alert, awake, oriented to person, oriented to place, oriented to time, oriented to situation Psychiatric exam: PRESENT: normal mood. ABSENT: agitated, anxious Focused psych exam: ABSENT: pressured speech Skin exam: ABSENT: intact, jaundice Results Laboratory Results: 01/01/20 13:28 01/01/20 13:28 01/01/20 01/01/20 01/01/20 13:28 13:28 13:28 WBC 9.4 RBC 4.21 L Hgb 13.5 Hct 40.9 MCV 97 MCH 32.2 MCHC 33.1 RDW 15.6 H Plt Count 230 Seg Neutrophils % 72.4 VBG pH VBG pCO2 VBG HCO3 VBG Base Excess Sodium 137.0 Potassium 4.7 Chloride 96 L Carbon Dioxide 38 H Anion Gap 3 L BUN 24 H Creatinine 0.99 Est GFR ( Amer) > 60 Glucose 98 Lactic Acid 1.3 Calcium 9.2 Total Bilirubin 0.5 AST 22 Alkaline Phosphatase 104 Total Protein 7.3 Albumin 4.0 Urine Color Urine Appearance Urine pH Ur Specific [place] Urine Protein Urine Glucose (UA) Urine Ketones Urine Blood Urine Nitrite Ur Leukocyte Esterase Urine WBC (Auto) Urine RBC (Auto) 01/01/20 01/01/20 13:28 16:53 WBC RBC Hgb Hct MCV MCH MCHC RDW Plt Count Seg Neutrophils % VBG pH 7.28 L VBG pCO2 83.1 H* VBG HCO3 37.9 H VBG Base Excess 7.8 Sodium Potassium Chloride Carbon Dioxide Anion Gap BUN Creatinine Est GFR ( Amer) Glucose Lactic Acid Calcium Total Bilirubin AST Alkaline Phosphatase Total Protein Albumin Urine Color YELLOW Urine Appearance SLIGHTLY-CLOUDY Urine pH 5.0 Ur Specific [place] 1.017 Urine Protein NEGATIVE Urine Glucose (UA) NEGATIVE Urine Ketones NEGATIVE Urine Blood SMALL H Urine Nitrite POSITIVE H Ur Leukocyte Esterase LARGE H Urine WBC (Auto) 153 Urine RBC (Auto) 2 Impressions: Chest X-Ray 01/01/20 13:12 IMPRESSION: NO ACUTE RADIOGRAPHIC FINDING IN THE CHEST. Assessment and Plan - Diagnosis (1) CHF (congestive heart failure) Qualifiers: Heart failure type: right-sided Heart failure chronicity: acute on chronic Qualified Code(s): I50.813 - Acute on chronic right heart failure Is this a current diagnosis for this admission?: Yes Plan: Patient has lower extremity swelling and increased dyspnea on exertion, PND likely secondary to right heart failure from COPD and possibly obesity hypoventilation Check BNP and echocardiogram. Does not have any recent echoes to evaluate ejection fraction and pulmonary pressures. Will place patient on Bumex IV 1 mg twice a day. Monitor on telemetry Replete electrolytes Fluid restriction, daily weights Ensure compliance with nocturnal NIPPV as well as oxygen (2) Acute and chronic respiratory failure with hypercapnia Is this a current diagnosis for this admission?: Yes Plan: Venous blood gas shows significant respiratory acidosis with pH of 7.28 and PCO2 to of 80s. However patient seems to be mentating fine at this time. This is likely secondary to acute on chronic CO2 respiratory acidosis from COPD. His morbid obesity is likely contributing to this causing some hypoventilation. I will place patient on BiPAP and have patient sleep with BiPAP tonight. Will check ABG in the morning. (3) Chronic respiratory failure with hypoxia Is this a current diagnosis for this admission?: Yes Plan: Secondary to COPD. Continue home oxygen supplementation. Goal SPO2 of 88 to 92%. COVID-19 screen will be performed especially as patient states last time he was transferred to [facility], people on the floor had COVID-19. (4) UTI (urinary tract infection) Qualifiers: Urinary tract infection type: site unspecified Hematuria presence: without hematuria Qualified Code(s): N39.0 - Urinary tract infection, site not specified Is this a current diagnosis for this admission?: Yes Plan: Urinalysis is positive and he complains of dysuria. Has history of Proteus ESBL in urine. I will put patient on meropenem. Follow-up urine culture. (5) COPD (chronic obstructive pulmonary disease) Qualifiers: COPD type: unspecified COPD Qualified Code(s): J44.9 - Chronic obstructive pulmonary disease, unspecified Is this a current diagnosis for this admission?: Yes Plan: Does not seem to be in acute exacerbation. Frequent nebs as well as as needed. (6) ETOH abuse Is this a current diagnosis for this admission?: Yes Plan: Patient states he has never withdrawn from alcohol. Will monitor on CIWA protocol every 6 hours. (7) Morbid obesity with BMI of 40.0-44.9, adult Is this a current diagnosis for this admission?: Yes Plan: Weight loss counseling performed. This is a significant contributor to his respiratory problems as well as heart failure. (8) Tobacco abuse Is this a current diagnosis for this admission?: Yes Plan: Nicotine patch will be provided (9) Acute sinusitis Qualifiers: Sinusitis location: unspecified location Recurrence: non-recurrent Qualified Code(s): J01.90 - Acute sinusitis, unspecified Is this a current diagnosis for this admission?: Yes Plan: Flonase nasal spray (10) Swelling of lower extremity Is this a current diagnosis for this admission?: Yes Plan: Secondary to heart failure or/and chronic venous insufficiency. Will check venous Dopplers to rule out DVT. Diuretics will be given and patient has been encouraged on elevation of lower extremities. - Time Time Spent with patient: 35 or more minutes
[2020-01-01 20:21] LABS: NT PRO BNP 52 pg/mL (<125)
[2020-01-01 20:25] LABS: TROPONIN I < 0.012 ng/mL
[2020-01-01] MEDS ORDERED: MEROPENEM 1 GM in NORMAL SALINE 50 ML IV ONE (20:30)
[2020-01-01] MEDS: IPRATROPIUM/ALBUTEROL 0.5-2.5 MG/3 ML AMPUL NEB SCH (21:13)
[2020-01-01] MEDS ORDERED: MEROPENEM 1 GM VIAL ONE (22:05)
--- NOTE | 2020-01-01 22:07 | EKG REPORT ---
SEVERITY:- ABNORMAL ECG - SINUS RHYTHM PROBABLE LEFT ATRIAL ABNORMALITY NONSPECIFIC INTRAVENTRICULAR CONDUCTION DELAY : Confirmed by: Carlota Joseph MD 01-Jan-2020 22:06:36
[2020-01-01] MEDS: HEPARIN SOD (PORCINE) 5,000 UNIT/ML 1 ML VIAL SUBCUT SCH (22:17)
[2020-01-01] MEDS: FLUTICASONE NASAL SPRAY 50 MCG/SPRY 120 SPRAY/16 GM NASL SCH (22:17)
[2020-01-02] MEDS ORDERED: METOPROLOL TARTRATE PF/INJ 5 MG/5 ML SDV IV PRN (00:07)
[2020-01-02] MEDS: IPRATROPIUM/ALBUTEROL 0.5-2.5 MG/3 ML AMPUL NEB SCH ×4 (02:43→20:06)
[2020-01-02] MEDS: HEPARIN SOD (PORCINE) 5,000 UNIT/ML 1 ML VIAL SUBCUT SCH ×3 (05:03→22:09)
[2020-01-02 05:43] LABS: ABSOLUTE BASOPHILS # (AUTO) 0.1 10^3/uL (0.0-0.2); ABSOLUTE EOSINOPHILS # (AUTO) 0.2 10^3/uL (0.0-0.6); ABSOLUTE MONOCYTES (AUTO) 0.9 10^3/uL (0.1-1.4); ABSOLUTE NEUT (AUTO) 6.3 10^3/uL (1.7-8.2); BASOPHILS % (AUTO) 0.6 % (0-2); EOSINOPHILS % (AUTO) 1.9 % (0-6); HEMOGLOBIN 12.9 g/dL (13.5-17.0); LYMPHOCYTES % (AUTO) 21.3 % (13-45); MEAN CORPUSCULAR HEMOGLOBIN 31.8 pg (27.0-33.4); MEAN CORPUSCULAR VOLUME 96 fl (80-97); MONOCYTES % (AUTO) 9.4 % (3-13); PLATELET COUNT 233 10^3/uL (150-450); RED BLOOD COUNT 4.05 10^6/uL (4.35-5.55); RED CELL DISTRIBUTION WIDTH 15.3 % (11.5-14.0); SEGMENTED NEUTROPHILS % (AUTO) 66.8 % (42-78); TOTAL CELLS COUNTED % (AUTO) 100 %; WHITE BLOOD COUNT 9.5 10^3/uL (4.0-10.5)
[2020-01-02 06:10] LABS: ANION GAP 6 (5-19); BLOOD UREA NITROGEN 23 mg/dL (7-20); CALCIUM 9.2 mg/dL (8.4-10.2); CARBON DIOXIDE 37 mmol/L (22-30); CHLORIDE 90 mmol/L (98-107); GLUCOSE 97 mg/dL (75-110); POTASSIUM 4.1 mmol/L (3.6-5.0)
[2020-01-02 07:05] LABS: ARTERIAL BLOOD BASE EXCESS 9.8 mmol/L; ARTERIAL BLOOD H2CO3 1.84 mmol/L (1.05-1.35); ARTERIAL BLOOD HCO3 37.1 mmol/L (20-24); ARTERIAL BLOOD PO2 94.6 mmHg (80-100)
[2020-01-02 07:08] LABS: ARTERIAL BLOOD FIO2 30%
[2020-01-02] MEDS: BUMETANIDE INJ/PF 1 MG/4 ML SDV IV SCH ×2 (09:14→17:36)
[2020-01-02] MEDS: MEROPENEM 1 GM in NORMAL SALINE 50 ML IV SCH ×2 (09:15→21:59)
[2020-01-02] MEDS: FLUTICASONE NASAL SPRAY 50 MCG/SPRY 120 SPRAY/16 GM NASL SCH ×2 (09:15→22:03)
--- NOTE | 2020-01-02 13:40 | PDOC PROGRESS REPORT ---
Subjective Progress Note for:: 01/02/20 Subjective:: Patient had some shortness of breath this morning. But at the time of my encounter he states that he is breathing well. He was seen on BiPAP at the time. Denies any chest pains or fevers. Reason For Visit: ACUTE ON CHRONIC HYPERCAPNIC RESPIRATORY FAILURE Physical Exam Vital Signs: Temp Pulse Resp BP Pulse Ox 98.1 F 66 16 121/71 96 01/02/20 12:00 01/02/20 12:00 01/02/20 12:00 01/02/20 12:00 01/02/20 12:00 Intake & Output 01/01/20 01/02/20 01/03/20 06:59 06:59 06:59 Intake Total 250 Output Total 200 Balance 50 Weight 124 kg General appearance: PRESENT: no acute distress, cooperative Neck exam: ABSENT: JVD Respiratory exam: PRESENT: clear to auscultation abi, prolonged expiratory phas, symmetrical, unlabored. ABSENT: tachypnea, wheezes Cardiovascular exam: PRESENT: RRR, +S1, +S2. ABSENT: tachycardia GI/Abdominal exam: PRESENT: normal bowel sounds, soft. ABSENT: rebound, rigid, tenderness Neurological exam: PRESENT: alert, awake, oriented to person, oriented to place, oriented to time, oriented to situation Psychiatric exam: ABSENT: agitated, anxious Focused psych exam: ABSENT: pressured speech Skin exam: ABSENT: jaundice Results Laboratory Results: 01/02/20 05:10 01/02/20 05:10 01/01/20 01/01/20 01/01/20 13:28 13:28 13:28 WBC 9.4 RBC 4.21 L Hgb 13.5 Hct 40.9 MCV 97 MCH 32.2 MCHC 33.1 RDW 15.6 H Plt Count 230 Seg Neutrophils % 72.4 Carbonic Acid HCO3/H2CO3 Ratio ABG pH ABG pCO2 ABG pO2 ABG HCO3 ABG O2 Saturation ABG Base Excess VBG pH VBG pCO2 VBG HCO3 VBG Base Excess FiO2 Sodium 137.0 Potassium 4.7 Chloride 96 L Carbon Dioxide 38 H Anion Gap 3 L BUN 24 H Creatinine 0.99 Est GFR ( Amer) > 60 Glucose 98 Lactic Acid 1.3 Calcium 9.2 Magnesium Total Bilirubin 0.5 AST 22 Alkaline Phosphatase 104 Total Protein 7.3 Albumin 4.0 Urine Color Urine Appearance Urine pH Ur Specific [place] Urine Protein Urine Glucose (UA) Urine Ketones Urine Blood Urine Nitrite Ur Leukocyte Esterase Urine WBC (Auto) Urine RBC (Auto) 01/01/20 01/01/20 01/02/20 13:28 16:53 05:10 WBC 9.5 RBC 4.05 L Hgb 12.9 L Hct 39.0 MCV 96 MCH 31.8 MCHC 33.0 RDW 15.3 H Plt Count 233 Seg Neutrophils % 66.8 Carbonic Acid HCO3/H2CO3 Ratio ABG pH ABG pCO2 ABG pO2 ABG HCO3 ABG O2 Saturation ABG Base Excess VBG pH 7.28 L VBG pCO2 83.1 H* VBG HCO3 37.9 H VBG Base Excess 7.8 FiO2 Sodium Potassium Chloride Carbon Dioxide Anion Gap BUN Creatinine Est GFR ( Amer) Glucose Lactic Acid Calcium Magnesium Total Bilirubin AST Alkaline Phosphatase Total Protein Albumin Urine Color YELLOW Urine Appearance SLIGHTLY-CLOUDY Urine pH 5.0 Ur Specific [place] 1.017 Urine Protein NEGATIVE Urine Glucose (UA) NEGATIVE Urine Ketones NEGATIVE Urine Blood SMALL H Urine Nitrite POSITIVE H Ur Leukocyte Esterase LARGE H Urine WBC (Auto) 153 Urine RBC (Auto) 2 01/02/20 01/02/20 05:10 06:05 WBC RBC Hgb Hct MCV MCH MCHC RDW Plt Count Seg Neutrophils % Carbonic Acid 1.84 H HCO3/H2CO3 Ratio 20:1 ABG pH 7.40 ABG pCO2 61.0 H ABG pO2 94.6 ABG HCO3 37.1 H ABG O2 Saturation 97.0 ABG Base Excess 9.8 VBG pH VBG pCO2 VBG HCO3 VBG Base Excess FiO2 30% Sodium 132.7 L Potassium 4.1 Chloride 90 L Carbon Dioxide 37 H Anion Gap 6 BUN 23 H Creatinine 0.96 Est GFR ( Amer) > 60 Glucose 97 Lactic Acid Calcium 9.2 Magnesium 2.1 Total Bilirubin AST Alkaline Phosphatase Total Protein Albumin Urine Color Urine Appearance Urine pH Ur Specific [place] Urine Protein Urine Glucose (UA) Urine Ketones Urine Blood Urine Nitrite Ur Leukocyte Esterase Urine WBC (Auto) Urine RBC (Auto) 01/01/20 13:28 Troponin I < 0.012 NT-Pro-B Natriuret Pep 52 Impressions: Chest X-Ray 01/01/20 13:12 IMPRESSION: NO ACUTE RADIOGRAPHIC FINDING IN THE CHEST. Assessment and Plan - Diagnosis (1) CHF (congestive heart failure) Qualifiers: Heart failure type: right-sided Heart failure chronicity: acute on chronic Qualified Code(s): I50.813 - Acute on chronic right heart failure Is this a current diagnosis for this admission?: Yes Plan: Patient has lower extremity swelling and increased dyspnea on exertion, PND likely secondary to right heart failure from COPD and possibly obesity hypoventilation Check BNP and echocardiogram. Does not have any recent echoes to evaluate ejection fraction and pulmonary pressures. Will place patient on Bumex IV 1 mg twice a day. Monitor on telemetry Replete electrolytes Fluid restriction, daily weights Ensure compliance with nocturnal NIPPV as well as oxygen (2) Acute and chronic respiratory failure with hypercapnia Is this a current diagnosis for this admission?: Yes Plan: This is likely secondary to acute on chronic CO2 respiratory acidosis from COPD. His morbid obesity is likely contributing to this causing some hypoventilation. ABG looks better this morning after patient slept on BiPAP. Respiratory compensation also noted. Keep patient on nocturnal BiPAP. (3) Chronic respiratory failure with hypoxia Is this a current diagnosis for this admission?: Yes Plan: Secondary to COPD. Continue home oxygen supplementation. Goal SPO2 of 88 to 92%. COVID-19 test result pending. (4) UTI (urinary tract infection) Qualifiers: Urinary tract infection type: site unspecified Hematuria presence: without hematuria Qualified Code(s): N39.0 - Urinary tract infection, site not specified Is this a current diagnosis for this admission?: Yes Plan: Urinalysis is positive and he complains of dysuria. Has history of Proteus ESBL in urine. Continue meropenem pending urine culture result. (5) COPD (chronic obstructive pulmonary disease) Qualifiers: COPD type: unspecified COPD Qualified Code(s): J44.9 - Chronic obstructive pulmonary disease, unspecified Is this a current diagnosis for this admission?: Yes Plan: Does not seem to be in acute exacerbation. Frequent nebs as well as as needed. (6) ETOH abuse Is this a current diagnosis for this admission?: Yes Plan: Patient states he has never withdrawn from alcohol. Will monitor on CIWA prot ocol every 6 hours. (7) Morbid obesity with BMI of 40.0-44.9, adult Is this a current diagnosis for this admission?: Yes Plan: Weight loss counseling performed. This is a significant contributor to his respiratory problems as well as heart failure. (8) Tobacco abuse Is this a current diagnosis for this admission?: Yes Plan: Nicotine patch will be provided (9) Acute sinusitis Qualifiers: Sinusitis location: unspecified location Recurrence: non-recurrent Qualified Code(s): J01.90 - Acute sinusitis, unspecified Is this a current diagnosis for this admission?: Yes Plan: Flonase nasal spray (10) Swelling of lower extremity Is this a current diagnosis for this admission?: Yes Plan: Secondary to heart failure or/and chronic venous insufficiency. Awaiting venous Dopplers to rule out DVT. Diuretics will be given and patient has been encouraged on elevation of lower extremities. Compression stockings. Encouraged on leg elevation when sitting. - Time Time Spent with patient: 15-24 minutes
[2020-01-02] MEDS: HYDROXYZINE PAMOATE 25 MG CAPSULE PO SCH ×2 (14:14→17:36)
[2020-01-03] MEDS: IPRATROPIUM/ALBUTEROL 0.5-2.5 MG/3 ML AMPUL NEB SCH ×4 (02:07→20:19)
[2020-01-03 05:11] LABS: ABSOLUTE BASOPHILS # (AUTO) 0.1 10^3/uL (0.0-0.2); ABSOLUTE EOSINOPHILS # (AUTO) 0.2 10^3/uL (0.0-0.6); ABSOLUTE LYMPHOCYTES (AUTO) 2.2 10^3/uL (0.5-4.7); ABSOLUTE MONOCYTES (AUTO) 0.9 10^3/uL (0.1-1.4); ABSOLUTE NEUT (AUTO) 5.8 10^3/uL (1.7-8.2); BASOPHILS % (AUTO) 0.9 % (0-2); EOSINOPHILS % (AUTO) 2.2 % (0-6); HEMOGLOBIN 13.2 g/dL (13.5-17.0); LYMPHOCYTES % (AUTO) 23.8 % (13-45); MEAN CORPUSCULAR HEMOGLOBIN 32.4 pg (27.0-33.4); MEAN CORPUSCULAR HGB CONC 33.8 g/dL (32.0-36.0); MEAN CORPUSCULAR VOLUME 96 fl (80-97); MONOCYTES % (AUTO) 9.9 % (3-13); PLATELET COUNT 232 10^3/uL (150-450); RED BLOOD COUNT 4.07 10^6/uL (4.35-5.55); SEGMENTED NEUTROPHILS % (AUTO) 63.2 % (42-78); TOTAL CELLS COUNTED % (AUTO) 100 %; WHITE BLOOD COUNT 9.1 10^3/uL (4.0-10.5)
[2020-01-03 05:30] LABS: BLOOD UREA NITROGEN 19 mg/dL (7-20); CALCIUM 9.2 mg/dL (8.4-10.2); GLUCOSE 98 mg/dL (75-110); POTASSIUM 4.1 mmol/L (3.6-5.0)
[2020-01-03 05:36] LABS: CHLORIDE 89 mmol/L (98-107)
[2020-01-03 05:47] LABS: ANION GAP 5 (5-19)
[2020-01-03 05:49] LABS: CARBON DIOXIDE 40 mmol/L (22-30)
[2020-01-03] MEDS: HEPARIN SOD (PORCINE) 5,000 UNIT/ML 1 ML VIAL SUBCUT SCH ×3 (06:12→21:40)
[2020-01-03] MEDS ORDERED: VANCOMYCIN HCL INJ 1000 MG VIAL IV PRN (07:41)
[2020-01-03] MEDS ORDERED: VANCOMYCIN HCL 1,500 MG in DEXTROSE 5%-WATER 250 ML IV ONE ×2 (07:45→10:00)
[2020-01-03] MEDS: HYDROXYZINE PAMOATE 25 MG CAPSULE PO SCH ×3 (09:43→17:37)
[2020-01-03] MEDS: LISINOPRIL 10 MG TABLET PO SCH (09:43)
[2020-01-03] MEDS: MEROPENEM 1 GM in NORMAL SALINE 50 ML IV SCH ×2 (09:43→17:36)
[2020-01-03] MEDS: TAMSULOSIN HCL 0.4 MG CAP.SR.24H PO SCH (09:43)
[2020-01-03] MEDS: BUMETANIDE INJ/PF 1 MG/4 ML SDV IV SCH ×2 (09:44→17:37)
[2020-01-03] MEDS: FLUTICASONE NASAL SPRAY 50 MCG/SPRY 120 SPRAY/16 GM NASL SCH ×2 (09:46→21:44)
[2020-01-03 09:47] LABS: ARTERIAL BLOOD BASE EXCESS 12.6 mmol/L; ARTERIAL BLOOD FIO2 30%; ARTERIAL BLOOD H2CO3 2.03 mmol/L (1.05-1.35); ARTERIAL BLOOD HCO3 40.6 mmol/L (20-24); ARTERIAL BLOOD O2 SATURATION 94.5 % (94-98); ARTERIAL BLOOD PCO2 67.3 mmHg (35-45); ARTERIAL BLOOD PO2 74.7 mmHg (80-100); ARTERIAL BLOOD TOTAL CO2 42.6 mmol/L (23-27)
[2020-01-03] MEDS ORDERED: VANCOMYCIN HCL INJ 1000 MG VIAL IV SCH (10:00)
--- NOTE | 2020-01-03 12:14 | RADIOLOGY REPORT (SQ) ---
EXAM DESCRIPTION: VENOUS BILATERAL LOWER IMAGES COMPLETED DATE/TIME: 01/03/2020 11:47 am REASON FOR STUDY: lower ext swelling COMPARISON: None. TECHNIQUE: Dynamic and static escudero scale and color images acquired of both lower extremity venous sy stems. Selected spectral images acquired with additional compression and augmentation maneuvers. Imag es stored on PACS. LIMITATIONS: None. FINDINGS: RIGHT LEG COMMON FEMORAL AND FEMORAL: Normal phasicity, compression and augmentation. No visualized echogenic m aterial on escudero scale. No defects on color images. POPLITEAL: Normal compression and augmentation. No visualized echogenic material on escudero scale. No de fects on color images. CALF VESSELS: Normal compression and augmentation. No visualized echogenic material on escudero scale. No defects on color image. GSV AND SSV: Normal compression. No visualized echogenic material on escudero scale. No defects on color images. ANY DEEP VENOUS INSUFFICIENCY: Not evaluated. ANY EVIDENCE OF POPLITEAL CYST: No. OTHER: No other significant finding. LEFT LEG COMMON FEMORAL AND FEMORAL: Normal phasicity, compression and augmentation. No visualized echogenic m aterial on escudero scale. No defects on color images. POPLITEAL: Normal compression and augmentation. No visualized echogenic material on escudero scale. No de fects on color images. CALF VESSELS: Normal compression and augmentation. No visualized echogenic material on escudero scale. No defects on color images. GSV AND SSV: Normal compression. No visualized echogenic material on escudero scale. No defects on color images. ANY DEEP VENOUS INSUFFICIENCY: Not evaluated. ANY EVIDENCE POPLITEAL CYST: No. OTHER: No other significant finding. IMPRESSION: NO EVIDENCE DVT OR SVT IN EITHER LEG. TECHNICAL DOCUMENTATION: JOB ID: [id number] [id number] 2010 [employer]- All Rights Reserved Reading location - IP/workstation name: [facility]
--- NOTE | 2020-01-03 13:04 | PDOC PROGRESS REPORT ---
Subjective Progress Note for:: 01/03/20 Subjective:: Patient states that he is breathing feels better. Urinating a lot. Denies abdominal pain or chest pain. Reason For Visit: ACUTE ON CHRONIC HYPERCAPNIC RESPIRATORY FAILURE Physical Exam Vital Signs: Temp Pulse Resp BP Pulse Ox 98.1 F 73 14 121/68 98 01/03/20 08:00 01/03/20 09:22 01/03/20 09:22 01/03/20 08:00 01/03/20 09:22 Intake & Output 01/02/20 01/03/20 01/04/20 06:59 06:59 06:59 Intake Total 250 920 Output Total 200 2250 Balance 50 -1330 Weight 124 kg 132.3 kg General appearance: PRESENT: no acute distress, cooperative, morbidly obese. ABSENT: disheveled, hard of hearing Neck exam: ABSENT: JVD Respiratory exam: PRESENT: clear to auscultation abi, decreased breath sounds, symmetrical, unlabored. ABSENT: accessory muscle use, retraction, tachypnea, wheezes Cardiovascular exam: PRESENT: RRR, +S1, +S2. ABSENT: tachycardia GI/Abdominal exam: PRESENT: soft. ABSENT: rebound, rigid, tenderness Extremities exam: PRESENT: +2 edema - Bilateral lower extremity edema Neurological exam: PRESENT: alert, awake, oriented to person, oriented to place, oriented to time Psychiatric exam: ABSENT: agitated, anxious Results Laboratory Results: 01/03/20 05:00 01/03/20 05:00 01/03/20 01/03/20 01/03/20 05:00 05:00 09:20 WBC 9.1 RBC 4.07 L Hgb 13.2 L Hct 39.0 MCV 96 MCH 32.4 MCHC 33.8 RDW 15.0 H Plt Count 232 Seg Neutrophils % 63.2 Carbonic Acid 2.03 H HCO3/H2CO3 Ratio 20:1 ABG pH 7.40 ABG pCO2 67.3 H ABG pO2 74.7 L ABG HCO3 40.6 H ABG O2 Saturation 94.5 ABG Base Excess 12.6 FiO2 30% Sodium 133.6 L Potassium 4.1 Chloride 89 L Carbon Dioxide 40 H* Anion Gap 5 BUN 19 Creatinine 1.02 Est GFR ( Amer) > 60 Glucose 98 Calcium 9.2 Magnesium 2.1 01/01/20 17:00 Blood Blood Culture (PCR) - Final 01/01/20 13:28 Troponin I < 0.012 NT-Pro-B Natriuret Pep 52 Impressions: Chest X-Ray 01/01/20 13:12 IMPRESSION: NO ACUTE RADIOGRAPHIC FINDING IN THE CHEST. Venous Doppler Study 01/03/20 00:00 IMPRESSION: NO EVIDENCE DVT OR SVT IN EITHER LEG. Assessment and Plan - Diagnosis (1) CHF (congestive heart failure) Qualifiers: Heart failure type: right-sided Heart failure chronicity: acute on chronic Qualified Code(s): I50.813 - Acute on chronic right heart failure Is this a current diagnosis for this admission?: Yes Plan: Patient has lower extremity swelling and increased dyspnea on exertion, PND likely secondary to right heart failure from COPD and possibly obesity hypoventilation Awaiting echocardiogram. Does not have any recent echoes to evaluate ejection fraction and pulmonary pressures. Continue Bumex IV 1 mg twice a day. Patient is diuresing well and lower extremity swelling is improving. Monitor on telemetry, renal function and electrolytes closely Fluid restriction, daily weights Ensure compliance with nocturnal NIPPV as well as oxygen (2) Acute and chronic respiratory failure with hypercapnia Is this a current diagnosis for this admission?: Yes Plan: This is likely secondary to acute on chronic CO2 respiratory acidosis from COPD. His morbid obesity is likely contributing to this causing some hypoventilation. Respiratory compensation also noted. Keep patient on nocturnal BiPAP. I have adjusted IPAP/EPAP settings to improve CO2 expulsion. (3) Chronic respiratory failure with hypoxia Is this a current diagnosis for this admission?: Yes Plan: Secondary to COPD. Continue home oxygen supplementation. Goal SPO2 of 88 to 92%. COVID-19 test result pending. (4) UTI (urinary tract infection) Qualifiers: Urinary tract infection type: site unspecified Hematuria presence: without hematuria Qualified Code(s): N39.0 - Urinary tract infection, site not sp ecified Is this a current diagnosis for this admission?: Yes Plan: Symptomatic. Urinalysis growing gram-negative rods-awaiting identification. Has history of Proteus ESBL in urine. Continue meropenem pending urine culture result. (5) COPD (chronic obstructive pulmonary disease) Qualifiers: COPD type: unspecified COPD Qualified Code(s): J44.9 - Chronic obstructive pulmonary disease, unspecified Is this a current diagnosis for this admission?: Yes Plan: Does not seem to be in acute exacerbation. Frequent nebs as well as as needed. (6) ETOH abuse Is this a current diagnosis for this admission?: Yes Plan: Patient states he has never withdrawn from alcohol. Will monitor on CIWA protocol every 6 hours. All CIWA scores have been <10 so far. (7) Morbid obesity with BMI of 40.0-44.9, adult Is this a current diagnosis for this admission?: Yes Plan: Weight loss counseling performed. This is a significant contributor to his respiratory problems as well as heart failure. (8) Tobacco abuse Is this a current diagnosis for this admission?: Yes Plan: Nicotine patch will be provided (9) Acute sinusitis Qualifiers: Sinusitis location: unspecified location Recurrence: non-recurrent Qualified Code(s): J01.90 - Acute sinusitis, unspecified Is this a current diagnosis for this admission?: Yes Plan: Flonase nasal spray (10) Swelling of lower extremity Is this a current diagnosis for this admission?: Yes Plan: Secondary to heart failure or/and chronic venous insufficiency. Venous Dopplers negative for DVT or SVT. Diuretics will be given and patient has been encouraged on elevation of lower extremities. Compression stockings. Encouraged on leg elevation when sitting. - Time Time Spent with patient: Less than 15 minutes
[2020-01-03] MEDS: ACETAMINOPHEN 325 MG TABLET PO PRN (17:37)
[2020-01-03] MEDS ORDERED: MEROPENEM 1 GM VIAL IV SCH (22:00)
[2020-01-03] MEDS ORDERED: VANCOMYCIN HCL 1,250 MG in DEXTROSE 5%-WATER 250 ML IV SCH (22:00)
[2020-01-04] MEDS: IPRATROPIUM/ALBUTEROL 0.5-2.5 MG/3 ML AMPUL NEB SCH ×4 (02:57→20:30)
[2020-01-04] MEDS: MEROPENEM 1 GM in NORMAL SALINE 50 ML IV SCH ×2 (03:03→10:35)
[2020-01-04] MEDS: HEPARIN SOD (PORCINE) 5,000 UNIT/ML 1 ML VIAL SUBCUT SCH ×3 (06:15→21:21)
[2020-01-04 06:20] LABS: ANION GAP 7 (5-19); BLOOD UREA NITROGEN 28 mg/dL (7-20); CALCIUM 8.7 mg/dL (8.4-10.2); CARBON DIOXIDE 36 mmol/L (22-30); CHLORIDE 90 mmol/L (98-107); GLUCOSE 98 mg/dL (75-110); POTASSIUM 3.7 mmol/L (3.6-5.0)
[2020-01-04] MEDS ORDERED: VANCOMYCIN HCL 750 MG in DEXTROSE 5%-WATER 250 ML IV SCH (10:00)
[2020-01-04] MEDS: LISINOPRIL 10 MG TABLET PO SCH (10:34)
[2020-01-04] MEDS: TAMSULOSIN HCL 0.4 MG CAP.SR.24H PO SCH (10:34)
[2020-01-04] MEDS: HYDROXYZINE PAMOATE 25 MG CAPSULE PO SCH ×3 (10:35→21:24)
[2020-01-04] MEDS: FLUTICASONE NASAL SPRAY 50 MCG/SPRY 120 SPRAY/16 GM NASL SCH ×2 (10:36→21:22)
--- NOTE | 2020-01-04 13:43 | PDOC PROGRESS REPORT ---
Subjective Progress Note for:: 01/04/20 Subjective:: Patient feels well. Denies any shortness of breath, or chest pain. States that he feels better from a respiratory standpoint. Reason For Visit: ACUTE ON CHRONIC HYPERCAPNIC RESPIRATORY FAILURE Physical Exam Vital Signs: Temp Pulse Resp BP Pulse Ox 97.8 F 86 17 119/66 96 01/04/20 11:46 01/04/20 11:46 01/04/20 11:46 01/04/20 11:46 01/04/20 11:46 Intake & Output 01/03/20 01/04/20 01/05/20 06:59 06:59 06:59 Intake Total 920 1886 Output Total 2250 1300 Balance -1330 586 Weight 132.3 kg 132.9 kg General appearance: PRESENT: no acute distress, cooperative Neck exam: ABSENT: JVD Respiratory exam: PRESENT: clear to auscultation abi, symmetrical, unlabored. ABSENT: tachypnea, wheezes Cardiovascular exam: PRESENT: RRR, +S1, +S2. ABSENT: tachycardia GI/Abdominal exam: PRESENT: soft. ABSENT: rebound, rigid, tenderness Extremities exam: PRESENT: pedal edema, +2 edema Neurological exam: PRESENT: alert, awake, oriented to person, oriented to place, oriented to time, oriented to situation Results Laboratory Results: 01/03/20 05:00 01/04/20 05:31 01/04/20 05:31 Sodium 132.5 L Potassium 3.7 Chloride 90 L Carbon Dioxide 36 H Anion Gap 7 BUN 28 H Creatinine 1.83 H Est GFR ( Amer) 46 L Glucose 98 Calcium 8.7 Magnesium 2.1 01/01/20 16:53 Clean Catch Midstream Urine Culture - Final Pseudomonas Aeruginosa 01/01/20 17:00 Blood Blood Culture (PCR) - Final 01/03/20 09:39 Blood Blood Culture (PCR) - Final Staphylococcus Species 01/01/20 13:28 Troponin I < 0.012 NT-Pro-B Natriuret Pep 52 Impressions: Chest X-Ray 01/01/20 13:12 IMPRESSION: NO ACUTE RADIOGRAPHIC FINDING IN THE CHEST. Venous Doppler Study 01/03/20 00:00 IMPRESSION: NO EVIDENCE DVT OR SVT IN EITHER LEG. Assessment and Plan - Diagnosis (1) CHF (congestive heart failure) Qualifiers: Heart failure type: right-sided Heart failure chronicity: acute on chronic Qualified Code(s): I50.813 - Acute on chronic right heart failure Is this a current diagnosis for this admission?: Yes Plan: Patient has lower extremity swelling and increased dyspnea on exertion, PND likely secondary to right heart failure from COPD and possibly obesity hypoventilation Still awaiting echocardiogram. I have held IV Bumex today due to DEMETRICE. Monitor on telemetry, renal function and electrolytes closely Fluid restriction, daily weights Ensure compliance with his home nocturnal NIPPV as well as oxygen (2) Acute and chronic respiratory failure with hypercapnia Is this a current diagnosis for this admission?: Yes Plan: This is likely secondary to acute on chronic CO2 respiratory acidosis from COPD. His morbid obesity is likely contributing to this causing some hypoventilati on.Respiratory compensation also noted. Keep patient on nocturnal BiPAP. I have adjusted IPAP/EPAP settings yesterday to improve CO2 expulsion. (3) Bacteremia Is this a current diagnosis for this admission?: Yes Plan: Initial blood cultures grew GPR and GNR from 1 blood culture sets-still awaiting identification of these organisms but likely GNR is Pseudomonas from his UTI. GPR may be a contaminant but follow-up identification. Repeat BCx 12/31 grew Coag- negative Meth-Resist Staph in 1 bottle only. Placed on cefepime. I have discontinued vancomycin as I believe coag negative staph to be a contaminant. (4) UTI (urinary tract infection) Qualifiers: Urinary tract infection type: site unspecified Hematuria presence: without hematuria Qualified Code(s): N39.0 - Urinary tract infection, site not specified Is this a current diagnosis for this admission?: Yes Plan: Symptomatic. Pseudomonas UTI. DC meropenem. Start cefepime. (5) Chronic respiratory failure with hypoxia Is this a current diagnosis for this admission?: Yes Plan: Secondary to COPD. Continue home oxygen 3L [place]. Goal SPO2 of 88 to 92%. (6) COPD (chronic obstructive pulmonary disease) Qualifiers: COPD type: unspecified COPD Qualified Code(s): J44.9 - Chronic obstructive pulmonary disease, unspecified Is this a current diagnosis for this admission?: Yes Plan: Does not seem to be in acute exacerbation. Frequent nebs as well as as needed. (7) ETOH abuse Is this a current diagnosis for this admission?: Yes Plan: Patient states he has never withdrawn from alcohol. Will monitor on CIWA protocol every 6 hours. All CIWA scores have been <10 so far. (8) Morbid obesity with BMI of 40.0-44.9, adult Is this a current diagnosis for this admission?: Yes Plan: Weight loss counseling performed. This is a significant contributor to his respiratory problems as well as heart failure. (9) Tobacco abuse Is this a current diagnosis for this admission?: Yes Plan: Nicotine patch will be provided (10) Acute sinusitis Qualifiers: Sinusitis location: unspecified location Recurrence: non-recurrent Qualified Code(s): J01.90 - Acute sinusitis, unspecified Is this a current diagnosis for this admission?: Yes Plan: Flonase nasal spray (11) Swelling of lower extremity Is this a current diagnosis for this admission?: Yes Plan: Secondary to heart failure or/and chronic venous insufficiency. Venous Dopplers negative for DVT or SVT. Diuretics and patient has been encouraged on elevation of lower extremities. Compression stockings. Encouraged on leg elevation when sitting. - Time Time Spent with patient: Less than 15 minutes
[2020-01-04] MEDS: CEFEPIME HCL 2 GM in DEXTROSE 5%-WATER 50 ML IV SCH (21:20)
--- NOTE | 2020-01-04 21:54 | XCELERA REPORT ---
[address] [address] Transthoracic Echocardiogram Report Name: KAMERON TRUJILLO Age: 59 yrs Gender: Male : 1960 Patient Status: Inpatient Patient Location: [address] [place], [place] [address] Study Date: 01/04/2020 02:48 PM Height: 68 in Weight: 273 lb BSA: 2.3 m2 Procedure: A two-dimensional transthoracic echocardiogram with color flow and Doppler was performed. Study Quality: Poor. Reason For Study: CHF History: CHF. Ordering Physician: RAMIN JEWELL Performed By: Nish Thakur Interpretation Summary The left ventricle is normal in size. There is normal left ventricular wall thickness. LV EF is 70% Left ventricular systolic function is normal. Doppler measurements suggest normal left ventricular diastolic function No defenite regional wall motion abnormality. There is no thrombus. Cannot assess for ASD,VSD , or PFO. The right ventricle is not well visualized secondary to technical limitations The right atrium is normal. Right atrium not well visualized secondary to technical limitations The left atrial size is normal. There is no evidence of mitral valve prolapse. There is no mitral valve stenosis. There is a trace amount of mitral regurgitation There is no aortic valvular vegetation. There is no aortic valve stenosis There is no LVOT obstruction. No aortic regurgitation is present. There is a trace amount of tricuspid regurgitation There is no pulmonic valvular stenosis. The aortic root is not well visualized but is probably normal size. The inferior vena cava appeared normal and decreased > 50% with respiration (RAP 5-10 mmHg) There is no pericardial effusion. MMode/2D Measurements & Calculations RVDd: 3.3 cm LVIDd: 4.5 cm FS: 38.2 % Ao root diam: 3.3 cm IVSd: 0.79 cm LVIDs: 2.8 cm EDV(Teich): 90.2 ml Ao root area: 8.8 cm2 LVPWd: 0.85 cm ESV(Teich): 28.3 ml LA dimension: 4.0 cm EF(Teich): 68.6 % Doppler Measurements & Calculations MV E max lala: MV P1/2t max lala: Ao V2 max: LV V1 max P.1 cm/sec 85.1 cm/sec 167.7 cm/sec 6.5 mmHg MV A max lala: MV P1/2t: 79.2 msec Ao max PG: LV V1 max: 74.0 cm/sec MVA(P1/2t): 2.8 cm2 11.2 mmHg 127.7 cm/sec MV E/A: 1.1 MV dec slope: 314.9 cm/sec2 MV dec time: 0.18 sec PA V2 max: TR max lala: MV P1/2t-pr_phl: 107.4 cm/sec 241.6 cm/sec 79.2 msec PA max P.6 mmHgTR max P.4 mmHg Left Ventricle The left ventricle is normal in size. There is normal left ventricular wall thickness. LV EF is 70%. Left ventricular systolic function is normal. Doppler measurements suggest normal left ventricular diastolic function. No defenite regional wall motion abnormality. There is no thrombus. Cannot assess for ASD,VSD , or PFO. Right Ventricle The right ventricle is not well visualized secondary to technical limitations. Atria The right atrium is normal. Right atrium not well visualized secondary to technical limitations. The left atrial size is normal. Mitral Valve There is no evidence of mitral valve prolapse. There is no mitral valve stenosis. There is a trace amount of mitral regurgitation. Aortic Valve There is no aortic valvular vegetation. There is no aortic valve stenosis. There is no LVOT obstruction. No aortic regurgitation is present. Tricuspid Valve There is no tricuspid stenosis. There is a trace amount of tricuspid regurgitation. Upper normal to early mild pulmonary hypertension.RVSP is 28 to 33 mm of Hg , with RA mean of 5 to 10. Pulmonic Valve There is no pulmonic valvular stenosis. There is no pulmonic valvular regurgitation. Great Vessels The aortic root is not well visualized but is probably normal size. The inferior vena cava appeared normal and decreased > 50% with respiration (RAP 5-10 mmHg). Effusions There is no pericardial effusion. : RAMIN JEWELL Lakshmi
[2020-01-04] MEDS ORDERED: CEFEPIME 2 GM/D5W RTU 2 GM/50 ML RTUPB IV SCH (22:00)
[2020-01-05] MEDS: IPRATROPIUM/ALBUTEROL 0.5-2.5 MG/3 ML AMPUL NEB SCH ×4 (01:58→20:39)
[2020-01-05] MEDS ORDERED: LORAZEPAM INJ 2 MG/1 ML VIAL ONE (05:47)
[2020-01-05] MEDS ORDERED: DIAZEPAM INJ 10 MG/2 ML DISP.SYRIN IV ONE (06:00)
[2020-01-05] MEDS: HEPARIN SOD (PORCINE) 5,000 UNIT/ML 1 ML VIAL SUBCUT SCH ×3 (06:08→23:07)
[2020-01-05 07:34] LABS: ANION GAP 5 (5-19); BLOOD UREA NITROGEN 33 mg/dL (7-20); CALCIUM 9.3 mg/dL (8.4-10.2); GLUCOSE 93 mg/dL (75-110); PHOSPHORUS 3.4 mg/dL (2.5-4.5); POTASSIUM 4.4 mmol/L (3.6-5.0)
[2020-01-05 07:39] LABS: CARBON DIOXIDE 38 mmol/L (22-30); CHLORIDE 92 mmol/L (98-107)
[2020-01-05] MEDS: FLUTICASONE NASAL SPRAY 50 MCG/SPRY 120 SPRAY/16 GM NASL SCH ×2 (09:40→23:07)
[2020-01-05] MEDS: LISINOPRIL 10 MG TABLET PO SCH (09:41)
[2020-01-05] MEDS: HYDROXYZINE PAMOATE 25 MG CAPSULE PO SCH (09:41)
[2020-01-05] MEDS: TAMSULOSIN HCL 0.4 MG CAP.SR.24H PO SCH (09:52)
[2020-01-05] MEDS: CEFEPIME HCL 2 GM in DEXTROSE 5%-WATER 50 ML IV SCH ×2 (09:52→23:07)
[2020-01-05 10:12] LABS: ABSOLUTE BASOPHILS # (AUTO) 0.1 10^3/uL (0.0-0.2); ABSOLUTE EOSINOPHILS # (AUTO) 0.2 10^3/uL (0.0-0.6); ABSOLUTE LYMPHOCYTES (AUTO) 2.2 10^3/uL (0.5-4.7); ABSOLUTE MONOCYTES (AUTO) 0.9 10^3/uL (0.1-1.4); ABSOLUTE NEUT (AUTO) 5.8 10^3/uL (1.7-8.2); BASOPHILS % (AUTO) 0.9 % (0-2); EOSINOPHILS % (AUTO) 2.3 % (0-6); HEMATOCRIT 38.3 % (37.9-51.0); HEMOGLOBIN 12.8 g/dL (13.5-17.0); LYMPHOCYTES % (AUTO) 23.5 % (13-45); MEAN CORPUSCULAR HEMOGLOBIN 32.1 pg (27.0-33.4); MEAN CORPUSCULAR HGB CONC 33.4 g/dL (32.0-36.0); MEAN CORPUSCULAR VOLUME 96 fl (80-97); MONOCYTES % (AUTO) 10.1 % (3-13); PLATELET COUNT 234 10^3/uL (150-450); RED BLOOD COUNT 3.99 10^6/uL (4.35-5.55); RED CELL DISTRIBUTION WIDTH 15.1 % (11.5-14.0); SEGMENTED NEUTROPHILS % (AUTO) 63.2 % (42-78); TOTAL CELLS COUNTED % (AUTO) 100 %; WHITE BLOOD COUNT 9.2 10^3/uL (4.0-10.5)
[2020-01-05 11:50] LABS: URINE AMPHETAMINES SCREEN NEGATIVE; URINE BARBITURATES SCREEN NEGATIVE; URINE BENZODIAZEPINES SCREEN NEGATIVE; URINE COCAINE SCREEN NEGATIVE; URINE MARIJUANA (THC) SCREEN NEGATIVE; URINE METHADONE SCREEN NEGATIVE; URINE PHENCYCLIDINE SCREEN NEGATIVE
--- NOTE | 2020-01-05 14:57 | PDOC PROGRESS REPORT ---
Subjective Progress Note for:: 01/05/20 Subjective:: KAMERON TRUJILLO is a 59 year old male with a history of CHF, COPD on home oxygen 2 L nasal cannula, nocturnal BiPAP, who presents to the hospital with complaints of increased shortness of breath for the past few days as well as lower extremity swelling for the past 2 weeks. He admits to having rhinorrhea, nasal congestion as well. Also admits to diarrhea. Complains of notable increased progressive dyspnea on exertion and limiting his exercise tolerance. States that he takes his Lasix but misses some doses. Denies any fever or chills. Denies any sick contacts. He denies any loss of smell or taste. Denies nausea or vomiting. Denies any worsening of his orthopnea. Admits to occasional PND. He does not seem to have any significant cough or sputum production. Also complains of dysuria. Had presented to the hospital back in October at which time he was transferred to [facility] for evaluation of right mid lung collapse. 01/05/2020. Overnight patient was complaining of anxiety and was given 10 mg of IV Valium which helped his anxiety however seems like he is too sensitive to benzodiazepines, and this morning patient is awake drowsy, noted to have low BP and low heart rate, denies having any chest pain or palpitation, on BiPAP on my encounter. Denies any nausea, vomiting, diarrhea, constipation or any urinary symptoms. Reason For Visit: ACUTE ON CHRONIC HYPERCAPNIC RESPIRATORY FAILURE Physical Exam Vital Signs: Temp Pulse Resp BP Pulse Ox 97.7 F 68 30 H 102/65 95 01/05/20 11:39 01/05/20 14:01 01/05/20 14:01 01/05/20 11:39 01/05/20 14:01 Intake & Output 01/04/20 01/05/20 01/06/20 06:59 06:59 06:59 Intake Total 1886 1197 940 Output Total 1300 875 600 Balance 586 322 340 Weight 132.9 kg 128.9 kg General appearance: PRESENT: no acute distress, morbidly obese Head exam: PRESENT: atraumatic, normocephalic Neck exam: ABSENT: carotid bruit, JVD, lymphadenopathy, thyromegaly Respiratory exam: PRESENT: clear to auscultation abi. ABSENT: rales, rhonchi, wheezes GI/Abdominal exam: PRESENT: normal bowel sounds, soft. ABSENT: distended, guarding, mass, organolmegaly, rebound, tenderness Extremities exam: PRESENT: full ROM. ABSENT: calf tenderness, clubbing, pedal edema Neurological exam: PRESENT: alert, awake, oriented to person, oriented to place, CN II-XII grossly intact, other - Drowsy. ABSENT: motor sensory deficit Skin exam: PRESENT: dry, intact, warm. ABSENT: cyanosis, rash Results Laboratory Results: 01/05/20 10:02 01/05/20 06:35 01/05/20 01/05/20 01/05/20 06:35 10:02 10:02 WBC 9.2 RBC 3.99 L Hgb 12.8 L Hct 38.3 MCV 96 MCH 32.1 MCHC 33.4 RDW 15.1 H Plt Count 234 Seg Neutrophils % 63.2 Sodium 135.1 L Potassium 4.4 Chloride 92 L Carbon Dioxide 38 H Anion Gap 5 BUN 33 H Creatinine 1.61 H Est GFR ( Amer) 53 L Glucose 93 Lactic Acid 1.8 Calcium 9.3 Phosphorus 3.4 Magnesium 2.4 H 01/01/20 17:00 Blood Blood Culture (PCR) - Final 01/01/20 17:00 Blood Blood Culture - Final Corynebacterium Species Pseudomonas Aeruginosa 01/03/20 09:39 Blood Blood Culture (PCR) - Final Staphylococcus Species 01/01/20 01/05/20 13:28 10:02 Troponin I < 0.012 NT-Pro-B Natriuret Pep 52 49 Impressions: Chest X-Ray 01/01/20 13:12 IMPRESSION: NO ACUTE RADIOGRAPHIC FINDING IN THE CHEST. Venous Doppler Study 01/03/20 00:00 IMPRESSION: NO EVIDENCE DVT OR SVT IN EITHER LEG. Assessment and Plan - Diagnosis (1) Acute and chronic respiratory failure with hypercapnia Is this a current diagnosis for this admission?: Yes Plan: This is likely secondary to acute on chronic CO2 respiratory acidosis from COPD. His morbid obesity is likely contributing to this causing some hypoventilation.Respiratory compensation also noted. Keep patient on nocturnal BiPAP. I have adjusted IPAP/EPAP settings yesterday to improve CO2 expulsion. (2) CHF (congestive heart failure) Qualifiers: Heart failure type: right-sided Heart failure chronicity: acute on chronic Qualified Code(s): I50.813 - Acute on chronic right heart failure Is this a current diagnosis for this admission?: Yes Plan: Patient has lower extremity swelling and increased dyspnea on exertion, PND likely secondary to right heart failure from COPD and possibly obesity hypoventilation Reviewed echo 01/04/2020. LVEF 70%. Left ventricle diastolic function WNL. Hold Bumex today due to DEMETRICE. Monitor on telemetry, renal function and electrolytes closely Fluid restriction, daily weights Ensure compliance with his home nocturnal NIPPV as well as oxygen (3) Acute sinusitis Qualifiers: Sinusitis location: unspecified location Recurrence: non-recurrent Qualified Code(s): J01.90 - Acute sinusitis, unspecified Is this a current diagnosis for this admission?: Yes Plan: Flonase nasal spray (4) Bacteremia Is this a current diagnosis for this admission?: Yes Plan: Initial blood cultures grew GPR and GNR from 1 blood culture sets-still awaiting identification of these organisms but likely GNR is Pseudomonas from his UTI. GPR may be a contaminant but follow-up identification. Repeat BCx 12/31 grew Coag- negative Meth-Resist Staph in 1 bottle only. Placed on cefepime. I have discontinued vancomycin as I believe coag negative staph to be a contaminant. (5) Chronic respiratory failure with hypoxia Is this a current diagnosis for this admission?: Yes Plan: Secondary to COPD. Continue home oxygen 3L [place]. Goal SPO2 of 88 to 92%. (6) COPD (chronic obstructive pulmonary disease) Qualifiers: COPD type: unspecified COPD Qualified Code(s): J44.9 - Chronic obstructive pulmonary disease, unspecified Is this a current diagnosis for this admission?: Yes Plan: Does not seem to be in acute exacerbation. Frequent nebs as well as as needed. (7) ETOH abuse Is this a current diagnosis for this admission?: Yes Plan: Patient states he has never withdrawn from alcohol. Will monitor on CIWA protocol every 6 hours. All CIWA scores have been <10 so far. (8) Swelling of lower extremity Is this a current diagnosis for this admission?: Yes Plan: Secondary to heart failure or/and chronic venous insufficiency. Venous Dopplers negative for DVT or SVT. Diuretics and patient has been encouraged on elevation of lower extremities. Compression stockings. Encouraged on leg elevation when sitting. (9) Tobacco abuse Is this a current diagnosis for this admission?: Yes Plan: Nicotine patch will be provided (10) UTI (urinary tract infection) Qualifiers: Urinary tract infection type: site unspecified Hematuria presence: without hematuria Qualified Code(s): N39.0 - Urinary tract infection, site not specified Is this a current diagnosis for this admission?: Yes Plan: Symptomatic. Pseudomonas UTI. DC meropenem. Start cefepime.
[2020-01-06] MEDS: IPRATROPIUM/ALBUTEROL 0.5-2.5 MG/3 ML AMPUL NEB SCH ×4 (02:23→20:38)
[2020-01-06] MEDS: HEPARIN SOD (PORCINE) 5,000 UNIT/ML 1 ML VIAL SUBCUT SCH ×3 (05:15→23:53)
[2020-01-06 07:02] LABS: ABSOLUTE BASOPHILS # (AUTO) 0.1 10^3/uL (0.0-0.2); ABSOLUTE EOSINOPHILS # (AUTO) 0.2 10^3/uL (0.0-0.6); ABSOLUTE LYMPHOCYTES (AUTO) 1.8 10^3/uL (0.5-4.7); ABSOLUTE MONOCYTES (AUTO) 0.9 10^3/uL (0.1-1.4); BASOPHILS % (AUTO) 0.8 % (0-2); EOSINOPHILS % (AUTO) 2.9 % (0-6); HEMATOCRIT 39.2 % (37.9-51.0); LYMPHOCYTES % (AUTO) 22.8 % (13-45); MEAN CORPUSCULAR HEMOGLOBIN 32.1 pg (27.0-33.4); MEAN CORPUSCULAR HGB CONC 33.2 g/dL (32.0-36.0); MEAN CORPUSCULAR VOLUME 97 fl (80-97); MONOCYTES % (AUTO) 11.2 % (3-13); PLATELET COUNT 218 10^3/uL (150-450); RED BLOOD COUNT 4.05 10^6/uL (4.35-5.55); RED CELL DISTRIBUTION WIDTH 15.1 % (11.5-14.0); SEGMENTED NEUTROPHILS % (AUTO) 62.3 % (42-78); TOTAL CELLS COUNTED % (AUTO) 100 %
[2020-01-06 07:25] LABS: BLOOD UREA NITROGEN 32 mg/dL (7-20); CARBON DIOXIDE 36 mmol/L (22-30); CHLORIDE 95 mmol/L (98-107); GLUCOSE 92 mg/dL (75-110); POTASSIUM 4.8 mmol/L (3.6-5.0)
[2020-01-06 07:27] LABS: ANION GAP 4 (5-19)
[2020-01-06] MEDS: LISINOPRIL 10 MG TABLET PO SCH (09:26)
[2020-01-06] MEDS: CEFEPIME HCL 2 GM in DEXTROSE 5%-WATER 50 ML IV SCH ×2 (09:33→23:54)
[2020-01-06] MEDS: FLUTICASONE NASAL SPRAY 50 MCG/SPRY 120 SPRAY/16 GM NASL SCH ×2 (09:33→23:53)
[2020-01-06] MEDS: TAMSULOSIN HCL 0.4 MG CAP.SR.24H PO SCH (09:33)
[2020-01-06] MEDS: FLUTICASONE/VILANTEROL 200-25 MCG/DOSE IH SCH (09:45)
[2020-01-06 11:23] LABS: VANCOMYCIN,TROUGH < 5.0 ug/mL (5.0-20.0)
[2020-01-06] MEDS ORDERED: VANCOMYCIN HCL 0 MG in DEXTROSE 5%-WATER 250 ML IV NR (11:45)
[2020-01-06] MEDS: METHYLPREDNISOLONE INJ 40 MG/1 ML SDV IV SCH ×2 (13:08→23:55)
[2020-01-06] MEDS: FUROSEMIDE INJ/PF 20 MG/2 ML SDV IV SCH ×2 (13:08→23:54)
[2020-01-06] MEDS: MIDODRINE HCL 5 MG TABLET PO SCH ×3 (13:08→17:06)
--- NOTE | 2020-01-06 18:20 | PDOC PROGRESS REPORT ---
Subjective Progress Note for:: 01/06/20 Subjective:: KAMERON TRUJILLO is a 59 year old male with a history of CHF, COPD on home oxygen 2 L nasal cannula, nocturnal BiPAP, who presents to the hospital with complaints of increased shortness of breath for the past few days as well as lower extremity swelling for the past 2 weeks. He admits to having rhinorrhea, nasal congestion as well. Also admits to diarrhea. Complains of notable increased progressive dyspnea on exertion and limiting his exercise tolerance. States that he takes his Lasix but misses some doses. Denies any fever or chills. Denies any sick contacts. He denies any loss of smell or taste. Denies nausea or vomiting. Denies any worsening of his orthopnea. Admits to occasional PND. He does not seem to have any significant cough or sputum production. Also complains of dysuria. Had presented to the hospital back in October at which time [facility] of right mid lung collapse. 01/05/2020. Overnight patient was complaining of anxiety and was given 10 mg of IV Valium which helped his anxiety however seems like he is too sensitive to benzodiazepines, and this morning patient is awake drowsy, noted to have low BP and low heart rate, denies having any chest pain or palpitation, on BiPAP on my encounter. Denies any nausea, vomiting, diarrhea, constipation or any urinary symptoms. 72,020. No acute events overnight. Alert and oriented, p.o. tolerant, denies any fever, chills, nausea, vomiting, diarrhea, constipation or any urinary symptom. Patient still has significant bilateral lower extremity edema to the point. Patient has very soft BPs and HR to diurese diuresis quickly. Reason For Visit: ACUTE ON CHRONIC HYPERCAPNIC RESPIRATORY FAILURE Physical Exam Vital Signs: Temp Pulse Resp BP Pulse Ox 97.2 F 73 36 H 87/72 L 95 01/06/20 16:59 01/06/20 16:59 01/06/20 16:59 01/06/20 16:59 01/06/20 16:59 Intake & Output 01/05/20 01/06/20 01/07/20 06:59 06:59 06:59 Intake Total 1197 1770 526 Output Total 627 1596 1900 Balance 322 1255 -1379 Weight 128.9 kg 129.7 kg Results Laboratory Results: 01/06/20 06:36 01/06/20 06:36 01/06/20 01/06/20 06:36 06:36 WBC 8.0 RBC 4.05 L Hgb 13.0 L Hct 39.2 MCV 97 MCH 32.1 MCHC 33.2 RDW 15.1 H Plt Count 218 Seg Neutrophils % 62.3 Sodium 135.0 L Potassium 4.8 Chloride 95 L Carbon Dioxide 36 H Anion Gap 4 L BUN 32 H Creatinine 1.37 H Est GFR ( Amer) > 60 Glucose 92 Calcium 9.0 Magnesium 2.4 H 01/01/20 13:28 Blood Blood Culture - Final NO GROWTH IN 5 DAYS 01/03/20 09:39 Blood Blood Culture (PCR) - Final Staphylococcus Species 01/03/20 09:39 Blood Blood Culture - Final Staphylococcus Lugdunensis 01/01/20 01/05/20 13:28 10:02 Troponin I < 0.012 NT-Pro-B Natriuret Pep 52 49 Impressions: Chest X-Ray 01/01/20 13:12 IMPRESSION: NO ACUTE RADIOGRAPHIC FINDING IN THE CHEST. Venous Doppler Study 01/03/20 00:00 IMPRESSION: NO EVIDENCE DVT OR SVT IN EITHER LEG. Assessment and Plan - Diagnosis (1) Acute and chronic respiratory failure with hypercapnia Is this a current diagnosis for this admission?: Yes (2) CHF (congestive heart failure) Qualifiers: Heart failure type: right-sided Heart failure chronicity: acute on chronic Qualified Code(s): I50.813 - Acute on chronic right heart failure Is this a current diagnosis for this admission?: Yes (3) Acute sinusitis Qualifiers: Sinusitis location: unspecified location Recurrence: non-recurrent Qualified Code(s): J01.90 - Acute sinusitis, unspecified Is this a current diagnosis for this admission?: Yes (4) Bacteremia Is this a current diagnosis for this admission?: Yes (5) Chronic respiratory failure with hypoxia Is this a current diagnosis for this admission?: Yes (6) COPD (chronic obstructive pulmonary disease) Qualifiers: COPD type: unspecified COPD Qualified Code(s): J44.9 - Chronic obstructive pulmonary disease, unspecified Is this a current diagnosis for this admission?: Yes (7) ETOH abuse Is this a current diagnosis for this admission?: Yes (8) Swelling of lower extremity Is this a current diagnosis for this admission?: Yes (9) Tobacco abuse Is this a current diagnosis for this admission?: Yes (10) UTI (urinary tract infection) Qualifiers: Urinary tract infection type: site unspecified Hematuria presence: without hematuria Qualified Code(s): N39.0 - Urinary tract infection, site not specified Is this a current diagnosis for this admission?: Yes
--- NOTE | 2020-01-06 19:44 | Progress Note ---
Provider Note Provider Note: [facility] Telephone Advice Consultation Chart reviewed. Patient is a 59-year-old man with CHF, COPD, atrial fibrilla tion, hypertension, DENA, CKD, depression and cirrhosis who was admitted on 12/31 due to worsening shortness of breath and dyspnea on exertion, lower extremities edema. There was hematuria as well as dysuria. One of the notes mentioned questionable left lower extremity cellulitis. He has been afebrile, but BP has been low. UA positive for nitrites, LE and WBC. Patient has a history of Proteus ESBL UTI. Blood cultures with 1 set positive for Pseudomonas aeruginosa on 12/31. Urine culture with same organism isolated. A repeat blood culture was positive for Staphylococcus lugdunensis. She was initially on vancomycin and meropenem, now on cefepime. Renal function is slowly improving. ID consulted for recommendations. PMH: COPD CHF Atrial Fibrillation Hypertension DENA Chronic Kidney Disease Depression Cirrhosis Allergies: No Known Allergies Allergy (Verified 10/21/17 13:20) Medications: Tamsulosin HCl [Flomax 0.4 mg Cap.sr] 0.4 mg PO DAILY 01/12/19 Furosemide [Lasix 40 mg Tablet] 40 mg PO DAILY 01/02/20 Hydroxyzine Pamoate [Vistaril 25 mg Capsule] 25 mg PO TID 01/02/20 Lisinopril [Zestril] 40 mg PO DAILY 01/02/20 Acetaminophen [Tylenol 325 mg Tablet] 650 mg PO Q6HP PRN 01/06/20 Gabapentin [Neurontin 300 mg Capsule] 300 mg PO Q8 01/06/20 Melatonin [Melatonin 5 mg Tablet] 10 mg PO QHS 01/06/20 Potassium Chloride [Klor-Con 10 Meq Tablet ER] 10 meq PO DAILY 01/06/20 Sertraline HCl 100 mg PO DAILY 01/06/20 Vital Signs: Temp Pulse Resp BP Pulse Ox 97.2 F 73 36 H 87/72 L 95 01/06/20 16:59 01/06/20 16:59 01/06/20 16:59 01/06/20 16:59 01/06/20 16:59 Intake & Output 01/05/20 01/06/20 01/07/20 06:59 06:59 06:59 Intake Total 1197 1770 1006 Output Total 875 6125 3106 Balance 550 -5101 -3961 Weight 128.9 kg 129.7 kg Weight/Height Weight 129.7 kg Height 5 ft 8 in Laboratories: 01/06/20 06:36 01/06/20 06:36 MCV 97 fl (80-97) 01/06/20 06:36 MCH 32.1 pg (27.0-33.4) 01/06/20 06:36 MCHC 33.2 g/dL (32.0-36.0) 01/06/20 06:36 RDW 15.1 % (11.5-14.0) H 01/06/20 06:36 Seg Neutrophils % 62.3 % (42-78) 01/06/20 06:36 Carbonic Acid 2.03 mmol/L (1.05-1.35) H 01/03/20 09:20 HCO3/H2CO3 Ratio 20:1 01/03/20 09:20 ABG pH 7.40 (7.35-7.45) 01/03/20 09:20 ABG pCO2 67.3 mmHg (35-45) H 01/03/20 09:20 ABG pO2 74.7 mmHg (80-100) L 01/03/20 09:20 ABG HCO3 40.6 mmol/L (20-24) H 01/03/20 09:20 ABG O2 Saturation 94.5 % (94-98) 01/03/20 09:20 ABG Base Excess 12.6 mmol/L 01/03/20 09:20 VBG pH 7.28 (7.30-7.42) L 01/01/20 13:28 VBG pCO2 83.1 mmHg (35-63) H* 01/01/20 13:28 VBG HCO3 37.9 mmol/L (20-32) H 01/01/20 13:28 VBG Base Excess 7.8 mmol/L 01/01/20 13:28 FiO2 30% 01/03/20 09:20 Chloride 95 mmol/L (98-107) L 01/06/20 06:36 Carbon Dioxide 36 mmol/L (22-30) H 01/06/20 06:36 Anion Gap 4 (5-19) L 01/06/20 06:36 Est GFR ( Amer) > 60 (>60) 01/06/20 06:36 Glucose 92 mg/dL (75-110) 01/06/20 06:36 Lactic Acid 1.8 mmol/L (0.7-2.1) 01/05/20 10:02 Calcium 9.0 mg/dL (8.4-10.2) 01/06/20 06:36 Phosphorus 3.4 mg/dL (2.5-4.5) 01/05/20 06:35 Magnesium 2.4 mg/dL (1.6-2.3) H 01/06/20 06:36 Total Bilirubin 0.5 mg/dL (0.2-1.3) 01/01/20 13:28 AST 22 U/L (17-59) 01/01/20 13:28 Alkaline Phosphatase 104 U/L (38-126) 01/01/20 13:28 Total Protein 7.3 g/dL (6.3-8.2) 01/01/20 13:28 Albumin 4.0 g/dL (3.5-5.0) 01/01/20 13:28 Urine Color YELLOW 01/01/20 16:53 Urine Appearance SLIGHTLY-CLOUDY 01/01/20 16:53 Urine pH 5.0 (5.0-9.0) 01/01/20 16:53 Ur Specific [place] 1.017 01/01/20 16:53 Urine Protein NEGATIVE mg/dL (NEGATIVE) 01/01/20 16:53 Urine Glucose (UA) NEGATIVE mg/dL (NEGATIVE) 01/01/20 16:53 Urine Ketones NEGATIVE mg/dL (NEGATIVE) 01/01/20 16:53 Urine Blood SMALL (NEGATIVE) H 01/01/20 16:53 Urine Nitrite POSITIVE (NEGATIVE) H 01/01/20 16:53 Ur Leukocyte Esterase LARGE (NEGATIVE) H 01/01/20 16:53 Urine WBC (Auto) 153 /HPF 01/01/20 16:53 Urine RBC (Auto) 2 /HPF 01/01/20 16:53 01/01/20 13:28 Blood Blood Culture - Final NO GROWTH IN 5 DAYS 01/03/20 09:39 Blood Blood Culture (PCR) - Final Staphylococcus Species 01/03/20 09:39 Blood Blood Culture - Final Staphylococcus Lugdunensis 01/01/20 01/05/20 13:28 10:02 Troponin I < 0.012 NT-Pro-B Natriuret Pep 52 49 Radiology: Chest X-Ray 01/01/20 13:12 IMPRESSION: NO ACUTE RADIOGRAPHIC FINDING IN THE CHEST. Venous Doppler Study 01/03/20 00:00 IMPRESSION: NO EVIDENCE DVT OR SVT IN EITHER LEG. Assessment and Recommendations: Patient evaluated due to Pseudomonas aeruginosa UTI and bacteremia. It is unclear if he has BPH, he is on tamsulosin. Renal function is improving. There was a questionable cellulitis in the left lower leg but there is no further mention of this. A repeat blood culture isolated Staphylococcus lugdunensis which is a CoNS from the skin. If there is a cellulitis on the leg, will have to treat this as a true infection with vancomycin even though it was not isolated from blood cultures on admission. If there is no cellulitis, this can be a skin contaminant and we can focus on treating the Pseudomonas UTI and bacteremia with cefepime to be transitioned to ciprofloxacin 750 mg po bid to complete 10 days of therapy when patient is ready to be discharged home. Should avoid any cations at home that may affect the absorption of the antibiotic. There is also risk of C diff diarrhea and tendon rupture. Please call if any questions. Lisha Elaine MD [facility] [id number]
[2020-01-06] MEDS: SERTRALINE HCL 50 MG TABLET PO SCH (23:54)
[2020-01-06] MEDS: MELATONIN 5 MG TABLET PO SCH (23:55)
[2020-01-07] MEDS: IPRATROPIUM/ALBUTEROL 0.5-2.5 MG/3 ML AMPUL NEB SCH ×4 (02:10→20:25)
[2020-01-07] MEDS: ONDANSETRON HCL INJ/PF 4 MG/2 ML SDV IV PRN (05:27)
[2020-01-07] MEDS: METHYLPREDNISOLONE INJ 40 MG/1 ML SDV IV SCH ×3 (05:27→22:25)
[2020-01-07] MEDS: FUROSEMIDE INJ/PF 20 MG/2 ML SDV IV SCH ×3 (05:27→22:25)
[2020-01-07] MEDS: HEPARIN SOD (PORCINE) 5,000 UNIT/ML 1 ML VIAL SUBCUT SCH ×3 (05:28→22:25)
[2020-01-07 06:48] LABS: ABSOLUTE LYMPHOCYTES (AUTO) 0.5 10^3/uL (0.5-4.7); ABSOLUTE MONOCYTES (AUTO) 0.4 10^3/uL (0.1-1.4); ABSOLUTE NEUT (AUTO) 9.4 10^3/uL (1.7-8.2); BASOPHILS % (AUTO) 0.4 % (0-2); HEMATOCRIT 38.5 % (37.9-51.0); HEMOGLOBIN 13.1 g/dL (13.5-17.0); LYMPHOCYTES % (AUTO) 5.1 % (13-45); MEAN CORPUSCULAR HEMOGLOBIN 32.7 pg (27.0-33.4); MEAN CORPUSCULAR VOLUME 96 fl (80-97); MONOCYTES % (AUTO) 4.2 % (3-13); PLATELET COUNT 235 10^3/uL (150-450); RED CELL DISTRIBUTION WIDTH 14.7 % (11.5-14.0); SEGMENTED NEUTROPHILS % (AUTO) 90.3 % (42-78); TOTAL CELLS COUNTED % (AUTO) 100 %; WHITE BLOOD COUNT 10.4 10^3/uL (4.0-10.5)
[2020-01-07 07:04] LABS: ANION GAP 5 (5-19); BLOOD UREA NITROGEN 34 mg/dL (7-20); CALCIUM 9.6 mg/dL (8.4-10.2); CARBON DIOXIDE 33 mmol/L (22-30); CHLORIDE 95 mmol/L (98-107); GLUCOSE 132 mg/dL (75-110); POTASSIUM 5.7 mmol/L (3.6-5.0)
[2020-01-07] MEDS: MIDODRINE HCL 5 MG TABLET PO SCH ×3 (09:13→17:54)
[2020-01-07] MEDS: TAMSULOSIN HCL 0.4 MG CAP.SR.24H PO SCH (09:13)
[2020-01-07] MEDS: SERTRALINE HCL 50 MG TABLET PO SCH (09:13)
[2020-01-07] MEDS: FLUTICASONE/VILANTEROL 200-25 MCG/DOSE IH SCH (09:14)
[2020-01-07] MEDS: CEFEPIME HCL 2 GM in DEXTROSE 5%-WATER 50 ML IV SCH ×2 (09:15→22:25)
[2020-01-07] MEDS: FLUTICASONE NASAL SPRAY 50 MCG/SPRY 120 SPRAY/16 GM NASL SCH ×2 (09:15→22:25)
[2020-01-07] MEDS ORDERED: SODIUM POLYSTYRENE SULFONATE 15 GM/60 ML PO ONE (09:30)
--- NOTE | 2020-01-07 12:50 | PDOC PROGRESS REPORT ---
Subjective Progress Note for:: 01/07/20 Subjective:: KAMERON TRUJILLO is a 59 year old male with a history of CHF, COPD on home oxygen 2 L nasal cannula, nocturnal BiPAP, who presents to the hospital with complaints of increased shortness of breath for the past few days as well as lower extremity swelling for the past 2 weeks. He admits to having rhinorrhea, nasal congestion as well. Also admits to diarrhea. Complains of notable increased progressive dyspnea on exertion and limiting his exercise tolerance. States that he takes his Lasix but misses some doses. Denies any fever or chills. Denies any sick contacts. He denies any loss of smell or taste. Denies nausea or vomiting. Denies any worsening of his orthopnea. Admits to occasional PND. He does not seem to have any significant cough or sputum production. Also complains of dysuria. Had presented to the hospital back in October at which time he was transferred to [facility] for evaluation of right mid lung collapse. 01/05/2020. Overnight patient was complaining of anxiety and was given 10 mg of IV Valium which helped his anxiety however seems like he is too sensitive to benzodiazepines, and this morning patient is awake drowsy, noted to have low BP and low heart rate, denies having any chest pain or palpitation, on BiPAP on my encounter. Denies any nausea, vomiting, diarrhea, constipation or any urinary symptoms. 01/06/2020. No acute events overnight. Alert and oriented, p.o. tolerant, denies any fever, chills, nausea, vomiting, diarrhea, constipation or any urinary symptom. Patient still has significant bilateral lower extremity edema to the point. Patient has very soft BPs and HR to diurese diuresis quickly. 01/07/2020. No acute events noted significant improvement of respiration, lower extremity edema improving, patient is currently receiving apparent distress, denies any fever, chills, nausea, vomiting, diarrhea, constipation or any urinary symptoms. Reason For Visit: ACUTE ON CHRONIC HYPERCAPNIC RESPIRATORY FAILURE Physical Exam Vital Signs: Temp Pulse Resp BP Pulse Ox 97.6 F 82 18 124/75 92 01/07/20 08:00 01/07/20 08:32 01/07/20 08:32 01/07/20 08:00 01/07/20 08:32 Intake & Output 07/02/1701/07/20 01/08/20 06:59 06:59 06:59 Intake Total 1770 1306 50 Output Total 3025 8285 Balance -1255 -5203 50 Weight 129.7 kg 127.1 kg General appearance: PRESENT: no acute distress, obese, well-developed, well- nourished Head exam: PRESENT: atraumatic, normocephalic Respiratory exam: PRESENT: clear to auscultation abi. ABSENT: rales, rhonchi, wheezes Cardiovascular exam: PRESENT: RRR. ABSENT: diastolic murmur, rubs, systolic murmur GI/Abdominal exam: PRESENT: normal bowel sounds, soft. ABSENT: distended, guarding, mass, organolmegaly, rebound, tenderness Extremities exam: PRESENT: full ROM, +2 edema. ABSENT: calf tenderness, clubbing, pedal edema Neurological exam: PRESENT: alert, awake, oriented to person, oriented to place, oriented to time, oriented to situation, CN II-XII grossly intact. ABSENT: motor sensory deficit Results Laboratory Results: 01/07/20 06:06 01/07/20 06:06 01/07/20 01/07/20 06:06 06:06 WBC 10.4 RBC 4.00 L Hgb 13.1 L Hct 38.5 MCV 96 MCH 32.7 MCHC 34.0 RDW 14.7 H Plt Count 235 Seg Neutrophils % 90.3 H Sodium 133.2 L Potassium 5.7 H Chloride 95 L Carbon Dioxide 33 H Anion Gap 5 BUN 34 H Creatinine 1.50 H Est GFR ( Amer) 58 L Glucose 132 H Calcium 9.6 01/01/20 13:28 Blood Blood Culture - Final NO GROWTH IN 5 DAYS 01/03/20 09:39 Blood Blood Culture (PCR) - Final Staphylococcus Species 01/03/20 09:39 Blood Blood Culture - Final Staphylococcus Lugdunensis 01/01/20 01/05/20 13:28 10:02 Troponin I < 0.012 NT-Pro-B Natriuret Pep 52 49 Impressions: Chest X-Ray 01/01/20 13:12 IMPRESSION: NO ACUTE RADIOGRAPHIC FINDING IN THE CHEST. Venous Doppler Study 01/03/20 00:00 IMPRESSION: NO EVIDENCE DVT OR SVT IN EITHER LEG. Assessment and Plan - Diagnosis (1) Acute and chronic respiratory failure with hypercapnia Is this a current diagnosis for this admission?: Yes Plan: Improving. Back to baseline. Patient has BiPAP at home. This is likely secondary to acute on chronic CO2 respiratory acidosis from COPD. His morbid obesity is likely contributing to this causing some hypoventilation.Respiratory compensation also noted. Keep patient on nocturnal BiPAP. I have adjusted IPAP/EPAP settings yesterday to improve CO2 expulsion. (2) CHF (congestive heart failure) Qualifiers: Heart failure type: right-sided Heart failure chronicity: acute on chronic Qualified Code(s): I50.813 - Acute on chronic right heart failure Is this a current diagnosis for this admission?: Yes Plan: Improving. Patient presented with lower extremity swelling and increased dyspnea on exertion, PND likely secondary to right heart failure from COPD and possibly obesity hypoventilation Reviewed echo 01/04/2020. LVEF 70%. Left ventricle diastolic function WNL. Monitor on telemetry, renal function and electrolytes closely Fluid restriction, daily weights Continue IV diuretics. (3) Acute sinusitis Qualifiers: Sinusitis location: unspecified location Recurrence: non-recurrent Qualified Code(s): J01.90 - Acute sinusitis, unspecified Is this a current diagnosis for this admission?: Yes Plan: Flonase nasal spray (4) Bacteremia Is this a current diagnosis for this admission?: Yes Plan: Initial blood cultures grew GPR and GNR from 1 blood culture sets-still awaiting identification of these organisms but likely GNR is Pseudomonas from his UTI. GPR may be a contaminant but follow-up identification. Repeat BCx 12/31 grew Coag-negative Meth-Resist Staph in 1 bottle only. Placed on cefepime. I have discontinued vancomycin as I believe coag negative staph to be a contaminant. (5) Chronic respiratory failure with hypoxia Is this a current diagnosis for this admission?: Yes Plan: Secondary to COPD. Continue home oxygen 3L NC. Goal SPO2 of 88 to 92%. (6) COPD (chronic obstructive pulmonary disease) Qualifiers: COPD type: unspecified COPD Qualified Code(s): J44.9 - Chronic obstructive pulmonary disease, unspecified Is this a current diagnosis for this admission?: Yes Plan: Does not seem to be in acute exacerbation. Frequent nebs as well as as needed. (7) ETOH abuse Is this a current diagnosis for this admission?: Yes Plan: Patient states he has never withdrawn from alcohol. Will monitor on CIWA protocol every 6 hours. All CIWA scores have been <10 so far. (8) Swelling of lower extremity Is this a current diagnosis for this admission?: Yes Plan: Secondary to heart failure or/and chronic venous insufficiency. Venous Dopplers negative for DVT or SVT. Diuretics and patient has been encouraged on elevation of lower extremities. Compression stockings. Encouraged on leg elevation when sitting. (9) Tobacco abuse Is this a current diagnosis for this admission?: Yes Plan: Nicotine patch will be provided (10) UTI (urinary tract infection) Qualifiers: Urinary tract infection type: site unspecified Hematuria presence: without hematuria Qualified Code(s): N39.0 - Urinary tract infection, site not specified Is this a current diagnosis for this admission?: Yes Plan: Symptomatic. Pseudomonas UTI. DC meropenem. Continue cefepime.
[2020-01-07] MEDS: HYDROXYZINE PAMOATE 25 MG CAPSULE PO SCH ×2 (13:49→17:54)
[2020-01-07] MEDS: MELATONIN 5 MG TABLET PO SCH (22:24)
[2020-01-08] MEDS: IPRATROPIUM/ALBUTEROL 0.5-2.5 MG/3 ML AMPUL NEB SCH ×4 (01:58→20:14)
[2020-01-08] MEDS: METHYLPREDNISOLONE INJ 40 MG/1 ML SDV IV SCH ×3 (05:46→21:35)
[2020-01-08] MEDS: FUROSEMIDE INJ/PF 20 MG/2 ML SDV IV SCH (05:46)
[2020-01-08] MEDS: HEPARIN SOD (PORCINE) 5,000 UNIT/ML 1 ML VIAL SUBCUT SCH ×3 (05:47→21:35)
[2020-01-08 07:16] LABS: ANION GAP 8 (5-19); BLOOD UREA NITROGEN 41 mg/dL (7-20); CALCIUM 9.8 mg/dL (8.4-10.2); CARBON DIOXIDE 33 mmol/L (22-30); CHLORIDE 94 mmol/L (98-107); GLUCOSE 129 mg/dL (75-110); POTASSIUM 5.5 mmol/L (3.6-5.0)
[2020-01-08] MEDS ORDERED: NORMAL SALINE 1000 ML 1,000 ML IV PRN (08:11)
[2020-01-08] MEDS: HYDROXYZINE PAMOATE 25 MG CAPSULE PO SCH ×3 (10:55→17:37)
[2020-01-08] MEDS: SERTRALINE HCL 50 MG TABLET PO SCH (10:55)
[2020-01-08] MEDS: CIPROFLOXACIN HCL 750 MG TABLET PO SCH ×2 (10:55→21:35)
[2020-01-08] MEDS: TAMSULOSIN HCL 0.4 MG CAP.SR.24H PO SCH (10:55)
[2020-01-08] MEDS: FLUTICASONE/VILANTEROL 200-25 MCG/DOSE IH SCH (11:46)
[2020-01-08] MEDS: FLUTICASONE NASAL SPRAY 50 MCG/SPRY 120 SPRAY/16 GM NASL SCH ×2 (11:46→21:35)
--- NOTE | 2020-01-08 18:55 | PDOC PROGRESS REPORT ---
Subjective Progress Note for:: 01/08/20 Subjective:: Patient feels well today. States that his breathing and swelling in his legs is better. Reason For Visit: ACUTE ON CHRONIC HYPERCAPNIC RESPIRATORY FAILURE Physical Exam Vital Signs: Temp Pulse Resp BP Pulse Ox 97.6 F 67 16 118/76 96 01/08/20 12:07 01/08/20 14:21 01/08/20 14:21 01/08/20 12:07 01/08/20 14:21 Intake & Output 01/07/20 01/08/20 01/09/20 06:59 06:59 06:59 Intake Total 1306 1340 Output Total 4175 3450 Balance -2869 -2110 Weight 127.1 kg 127.1 kg General appearance: PRESENT: no acute distress, cooperative Neck exam: ABSENT: JVD Respiratory exam: PRESENT: clear to auscultation abi, unlabored. ABSENT: tachypnea, wheezes Cardiovascular exam: PRESENT: +S1, +S2 GI/Abdominal exam: PRESENT: soft. ABSENT: rebound, rigid, tenderness Neurological exam: PRESENT: alert, awake, oriented to person, oriented to place Results Laboratory Results: 01/07/20 06:06 01/08/20 06:51 01/08/20 06:51 Sodium 134.6 L Potassium 5.5 H Chloride 94 L Carbon Dioxide 33 H Anion Gap 8 BUN 41 H Creatinine 1.35 H Est GFR ( Amer) > 60 Glucose 129 H Calcium 9.8 01/03/20 08:30 Blood Blood Culture - Final NO GROWTH IN 5 DAYS 01/01/20 01/05/20 13:28 10:02 Troponin I < 0.012 NT-Pro-B Natriuret Pep 52 49 Impressions: Chest X-Ray 01/01/20 13:12 IMPRESSION: NO ACUTE RADIOGRAPHIC FINDING IN THE CHEST. Venous Doppler Study 01/03/20 00:00 IMPRESSION: NO EVIDENCE DVT OR SVT IN EITHER LEG. Assessment and Plan - Diagnosis (1) CHF (congestive heart failure) Qualifiers: Heart failure type: right-sided Heart failure chronicity: acute on chronic Qualified Code(s): I50.813 - Acute on chronic right heart failure Is this a current diagnosis for this admission?: Yes (2) Acute and chronic respiratory failure with hypercapnia Is this a current diagnosis for this admission?: Yes (3) Bacteremia Is this a current diagnosis for this admission?: Yes (4) UTI (urinary tract infection) Qualifiers: Urinary tract infection type: site unspecified Hematuria presence: without hematuria Qualified Code(s): N39.0 - Urinary tract infection, site not specified Is this a current diagnosis for this admission?: Yes (5) Chronic respiratory failure with hypoxia Is this a current diagnosis for this admission?: Yes (6) COPD (chronic obstructive pulmonary disease) Qualifiers: COPD type: unspecified COPD Qualified Code(s): J44.9 - Chronic obstructive pulmonary disease, unspecified Is this a current diagnosis for this admission?: Yes (7) ETOH abuse Is this a current diagnosis for this admission?: Yes (8) Morbid obesity with BMI of 40.0-44.9, adult Is this a current diagnosis for this admission?: Yes (9) Tobacco abuse Is this a current diagnosis for this admission?: Yes (10) Acute sinusitis Qualifiers: Sinusitis location: unspecified location Recurrence: non-recurrent Qualified Code(s): J01.90 - Acute sinusitis, unspecified Is this a current diagnosis for this admission?: Yes (11) Swelling of lower extremity Is this a current diagnosis for this admission?: Yes - Plan Summary Summary: Patient still has hyperkalemia and elevated creatinine secondary to dehydration and likely overdiuresis. I have discontinued all patient's diuretics and will have placed patient on continuous IV fluids. His echo ended up showing normal ejection fraction with normal diastolic function and only mildly elevated RVSP. Still may have had some component of right-sided heart failure from his lung disease as the echo was done at a point where he had already been significantly diuresed. Check electrolytes tomorrow. Likely discharge tomorrow. - Time Time Spent with patient: Less than 15 minutes
[2020-01-08] MEDS: ONDANSETRON HCL INJ/PF 4 MG/2 ML SDV IV PRN (20:03)
[2020-01-08] MEDS: ACETAMINOPHEN 325 MG TABLET PO PRN (20:08)
[2020-01-08] MEDS: MELATONIN 5 MG TABLET PO SCH (21:35)
[2020-01-09] MEDS: IPRATROPIUM/ALBUTEROL 0.5-2.5 MG/3 ML AMPUL NEB SCH ×2 (01:39→08:40)
[2020-01-09] MEDS: HEPARIN SOD (PORCINE) 5,000 UNIT/ML 1 ML VIAL SUBCUT SCH (05:21)
[2020-01-09] MEDS: METHYLPREDNISOLONE INJ 40 MG/1 ML SDV IV SCH (05:22)
[2020-01-09 06:21] LABS: ANION GAP 8 (5-19); BLOOD UREA NITROGEN 39 mg/dL (7-20); CALCIUM 9.4 mg/dL (8.4-10.2); CARBON DIOXIDE 32 mmol/L (22-30); CHLORIDE 94 mmol/L (98-107); GLUCOSE 130 mg/dL (75-110); POTASSIUM 5.6 mmol/L (3.6-5.0)
[2020-01-09] MEDS ORDERED: NORMAL SALINE 1000 ML 1,000 ML IV PRN ×2 (08:03→18:22)
[2020-01-09] MEDS ORDERED: SODIUM POLYSTYRENE SULFONATE 15 GM/60 ML PO ONE (09:00)
[2020-01-09] MEDS: TAMSULOSIN HCL 0.4 MG CAP.SR.24H PO SCH (10:34)
[2020-01-09] MEDS: CIPROFLOXACIN HCL 750 MG TABLET PO SCH ×2 (10:34→21:31)
[2020-01-09] MEDS: HYDROXYZINE PAMOATE 25 MG CAPSULE PO SCH ×3 (10:34→17:20)
[2020-01-09] MEDS: SERTRALINE HCL 50 MG TABLET PO SCH (10:34)
[2020-01-09] MEDS: FLUTICASONE NASAL SPRAY 50 MCG/SPRY 120 SPRAY/16 GM NASL SCH ×2 (10:35→21:31)
[2020-01-09] MEDS: FLUTICASONE/VILANTEROL 200-25 MCG/DOSE IH SCH (10:35)
--- NOTE | 2020-01-09 13:23 | PDOC PROGRESS REPORT ---
Subjective Progress Note for:: 01/09/20 Subjective:: Patient is currently doing well. Has no complaints at this time. Reason For Visit: ACUTE ON CHRONIC HYPERCAPNIC RESPIRATORY FAILURE Physical Exam Vital Signs: Temp Pulse Resp BP Pulse Ox 97.8 F 66 20 140/76 H 94 01/09/20 11:19 01/09/20 11:19 01/09/20 11:19 01/09/20 11:19 01/09/20 11:19 Intake & Output 01/08/20 01/09/20 01/10/20 06:59 06:59 06:59 Intake Total 4454 063 5246 Output Total 3450 2700 1100 Balance -2110 -1900 480 Weight 127.1 kg 128.3 kg General appearance: PRESENT: no acute distress, cooperative Neck exam: ABSENT: JVD Respiratory exam: PRESENT: symmetrical, unlabored. ABSENT: tachypnea Extremities exam: PRESENT: +1 edema Neurological exam: PRESENT: alert, awake, oriented to person, oriented to place, oriented to time, oriented to situation Skin exam: ABSENT: jaundice Results Laboratory Results: 01/07/20 06:06 01/09/20 05:52 01/09/20 05:52 Sodium 134.2 L Potassium 5.6 H Chloride 94 L Carbon Dioxide 32 H Anion Gap 8 BUN 39 H Creatinine 1.16 Est GFR ( Amer) > 60 Glucose 130 H Calcium 9.4 Magnesium 2.2 01/01/20 01/05/20 13:28 10:02 Troponin I < 0.012 NT-Pro-B Natriuret Pep 52 49 Impressions: Chest X-Ray 01/01/20 13:12 IMPRESSION: NO ACUTE RADIOGRAPHIC FINDING IN THE CHEST. Venous Doppler Study 01/03/20 00:00 IMPRESSION: NO EVIDENCE DVT OR SVT IN EITHER LEG. Assessment and Plan - Diagnosis (1) CHF (congestive heart failure) Qualifiers: Heart failure type: right-sided Heart failure chronicity: acute on chronic Qualified Code(s): I50.813 - Acute on chronic right heart failure Is this a current diagnosis for this admission?: Yes (2) Acute and chronic respiratory failure with hypercapnia Is this a current diagnosis for this admission?: Yes (3) Bacteremia Is this a current diagnosis for this admission?: Yes (4) UTI (urinary tract infection) Qualifiers: Urinary tract infection type: site unspecified Hematuria presence: without hematuria Qualified Code(s): N39.0 - Urinary tract infection, site not spe cified Is this a current diagnosis for this admission?: Yes (5) Chronic respiratory failure with hypoxia Is this a current diagnosis for this admission?: Yes (6) COPD (chronic obstructive pulmonary disease) Qualifiers: COPD type: unspecified COPD Qualified Code(s): J44.9 - Chronic obstructive pulmonary disease, unspecified Is this a current diagnosis for this admission?: Yes (7) ETOH abuse Is this a current diagnosis for this admission?: Yes (8) Morbid obesity with BMI of 40.0-44.9, adult Is this a current diagnosis for this admission?: Yes (9) Tobacco abuse Is this a current diagnosis for this admission?: Yes (10) Acute sinusitis Qualifiers: Sinusitis location: unspecified location Recurrence: non-recurrent Qualified Code(s): J01.90 - Acute sinusitis, unspecified Is this a current diagnosis for this admission?: Yes (11) Swelling of lower extremity Is this a current diagnosis for this admission?: Yes - Plan Summary Summary: Patient still has hyperkalemia even despite resolution of his DEMETRICE. I have discontinued his heparin just in case this is contributing to his hyperkalemia. I have held Lasix in order to avoid DEMETRICE from overdiuresis so I will give patient a dose of Kayexalate. Will repeat BMP this afternoon. Continue gentle IV fluid hydration. His echo ended up showing normal ejection fraction with normal diastolic function and only mildly elevated RVSP. Still may have had some component of right-sided heart failure from his lung disease as the echo was done at a point where he had already been significantly diuresed. Continue ciprofloxacin for Pseudomonas bacteremia. Check BMP also in the morning. Likely discharge tomorrow if potassium levels improve. - Time Time Spent with patient: Less than 15 minutes
[2020-01-09 16:57] LABS: BLOOD UREA NITROGEN 33 mg/dL (7-20); CALCIUM 9.1 mg/dL (8.4-10.2); CARBON DIOXIDE 34 mmol/L (22-30); CHLORIDE 96 mmol/L (98-107); GLUCOSE 143 mg/dL (75-110)
[2020-01-09 17:06] LABS: ANION GAP 4 (5-19)
[2020-01-09] MEDS: MELATONIN 5 MG TABLET PO SCH (21:31)
[2020-01-09] MEDS: ACETAMINOPHEN 325 MG TABLET PO PRN (21:31)
[2020-01-10 06:55] LABS: ANION GAP 5 (5-19); BLOOD UREA NITROGEN 35 mg/dL (7-20); CALCIUM 9.2 mg/dL (8.4-10.2); CARBON DIOXIDE 31 mmol/L (22-30); CHLORIDE 100 mmol/L (98-107); GLUCOSE 93 mg/dL (75-110); POTASSIUM 4.9 mmol/L (3.6-5.0)
[2020-01-10] MEDS: SERTRALINE HCL 50 MG TABLET PO SCH (09:37)
[2020-01-10] MEDS: HYDROXYZINE PAMOATE 25 MG CAPSULE PO SCH ×2 (09:37→13:33)
[2020-01-10] MEDS: CIPROFLOXACIN HCL 750 MG TABLET PO SCH (09:37)
[2020-01-10] MEDS: TAMSULOSIN HCL 0.4 MG CAP.SR.24H PO SCH (09:37)
[2020-01-10] MEDS: FLUTICASONE NASAL SPRAY 50 MCG/SPRY 120 SPRAY/16 GM NASL SCH (09:38)
[2020-01-10] MEDS: FLUTICASONE/VILANTEROL 200-25 MCG/DOSE IH SCH (09:38)
--- NOTE | 2020-01-10 10:26 | PDOC DISCHARGE SUMMARY ---
Impression - Admit/DC Date/PCP Admission Date/Primary Care Provider: 01/01/20 18:16 [facility] Discharge Date: 01/10/20 - Discharge Diagnosis (1) Acute and chronic respiratory failure with hypercapnia Is this a current diagnosis for this admission?: Yes (2) Pseudomonal bacteremia Is this a current diagnosis for this admission?: Yes (3) COPD (chronic obstructive pulmonary disease) Is this a current diagnosis for this admission?: Yes (4) CHF (congestive heart failure) Is this a current diagnosis for this admission?: Yes (5) Pseudomonas urinary tract infection Is this a current diagnosis for this admission?: Yes (6) Chronic respiratory failure with hypoxia Is this a current diagnosis for this admission?: Yes (7) ETOH abuse Is this a current diagnosis for this admission?: Yes (8) Morbid obesity with BMI of 40.0-44.9, adult Is this a current diagnosis for this admission?: Yes (9) Tobacco abuse Is this a current diagnosis for this admission?: Yes (10) Acute sinusitis Is this a current diagnosis for this admission?: Yes (11) Chronic venous insufficiency Is this a current diagnosis for this admission?: Yes (12) Swelling of lower extremity Is this a current diagnosis for this admission?: Yes - Additional Information Resuscitation Status: Full Code Discharge Diet: Cardiac Discharge Activity: Activity As Tolerated, Balance Activity w/Rest, Keep Legs Elevated, Slowly Increase Activity, Weigh Daily Referrals: [facility] [Primary [facility]] - Follow up as needed (The patient will make his own follow-up appointment.) Prescriptions: Fluticasone/Vilanterol [Breo 200-25 Mcg Ellipta 14 Dose/Dpi] 1 inh IH DAILY #1 inhaler Ciprofloxacin HCl [Cipro 750 mg Tablet] 750 mg PO Q12 3 Days #6 tablet Ipratropium/Albuterol Sulfate [Duoneb 3 ml Ampul] 3 ml NEB RTQ6HP PRN #30 vial.neb PRN Reason: Albuterol Sulfate [Ventolin Hfa 8 gm Mdi] 2 puff IH Q6HP PRN #1 inhaler PRN Reason: Home Medications: Tamsulosin HCl [Flomax 0.4 mg Cap.sr] 0.4 mg PO DAILY 01/12/19 Furosemide [Lasix 40 mg Tablet] 40 mg PO DAILY 01/02/20 Hydroxyzine Pamoate [Vistaril 25 mg Capsule] 25 mg PO TID 01/02/20 Lisinopril [Zestril] 40 mg PO DAILY 01/02/20 Acetaminophen [Tylenol 325 mg Tablet] 650 mg PO Q6HP PRN 01/06/20 Gabapentin [Neurontin 300 mg Capsule] 300 mg PO Q8 01/06/20 Melatonin [Melatonin 5 mg Tablet] 10 mg PO QHS 01/06/20 Sertraline HCl 100 mg PO DAILY 01/06/20 Albuterol Sulfate [Ventolin Hfa 8 gm Mdi] 2 puff IH Q6HP PRN #1 inhaler 01/10/20 Ciprofloxacin HCl [Cipro 750 mg Tablet] 750 mg PO Q12 3 Days #6 tablet 01/10/20 Fluticasone Propionate [Flonase Nasal Denton 50 Mcg/Denton 16 gm] 1 spray NASL Q12 #1 inhaler 01/10/20 Fluticasone/Vilanterol [Breo 200-25 Mcg Ellipta 14 Dose/Dpi] 1 inh IH DAILY #1 inhaler 01/10/20 Ipratropium/Albuterol Sulfate [Duoneb 3 ml Ampul] 3 ml NEB RTQ6HP PRN #30 vial.neb 01/10/20 History of Present Illiness History of Present Illness: KAMERON TRUJILLO is a 59 year old male with a history of CHF, COPD on home oxygen 2 L nasal cannula, nocturnal BiPAP, who presents to the hospital with complaints of increased shortness of breath for the past few days as well as lower extremity swelling for the past 2 weeks. He admits to having rhinorrhea, nasal congestion as well. Also admits to diarrhea. Complains of notable increased progressive dyspnea on exertion and limiting his exercise tolerance. States that he takes his Lasix but misses some doses. Denies any fever or chills. Denies any sick contacts. He denies any loss of smell or taste. Denies nausea or vomiting. Denies any worsening of his orthopnea. Admits to occasional PND. He does not seem to have any significant cough or sputum production. Also complains of dysuria. Had presented to the hospital back in October at which time he was transferred to [facility] for evaluation of right mid lung collapse. Hospital Course Hospital Course: Patient was admitted to the hospital for evaluation of shortness of breath with acute on chronic hypoxic and hypercapnic respiratory failure with blood gas noted respiratory acidosis secondary to COPD. Patient had also complained of dyspnea on exertion and was found to have lower extremity swelling. There was initial suspicion for possible CHF playing a role in patient's presentation especially as patient has a reported history of chronic diastolic heart failure. Patient was started on breathing treatments and placed on BiPAP therapy to help treat his hypercapnic respiratory failure. Regards to patient's hypoxia, patient was chronically already on 3 L nasal cannula at home. COVID-19 test was negative. Patient's respiratory acidosis resolved with BiPAP treatment as well as metabolic compensation. Patient was also diuresed with IV Lasix to help with his lower extremity swelling. However echocardiogram later showed the patient had normal LV systolic and diastolic function with no significant valvulopathy. Due to technical limitations, the echo was suboptimal and did not adequately visualize the right ventricle. In consultation with patient's BNP being normal, decision was made to discontinue treatment for potential chronic CHF and patient was rather rehydrated as he had developed an DEMETRICE. He was given IV fluids. His DEMETRICE resolved but his hyperkalemia persisted. Heparin was discontinued and also patient was given a dose of Kayexalate. His hyperkalemia has now resolved. During this hospitalization as well, patient was treated for symptomatic UTI with urine culture positive for Pseudomonas and blood culture also positive for Pseudomonas. He was treated with IV antibiotics and later discharged on p.o. ciprofloxacin for 3 more days to complete 10 days of therapy as recommended by infectious diseases. Patient is scheduled to follow-up with the OR for referral to a ct technician for qualification for BiPAP machine at home. He currently uses an NIPPV device nocturnally at home but he is uncertain if it is a CPAP or a BiPAP. Physical Exam Vital Signs: Temp Pulse Resp BP Pulse Ox 97.7 F 64 20 125/74 97 01/10/20 07:47 01/10/20 07:47 01/10/20 07:47 01/10/20 07:47 01/10/20 07:47 Intake & Output 01/09/20 01/10/20 01/11/20 06:59 06:59 06:59 Intake Total 800 3300 889 Output Total 2700 3000 Balance -1900 300 889 Weight 128.3 kg 127.8 kg General appearance: PRESENT: no acute distress, cooperative Neck exam: ABSENT: JVD Respiratory exam: PRESENT: unlabored. ABSENT: accessory muscle use, retraction Cardiovascular exam: ABSENT: tachycardia Extremities exam: PRESENT: pedal edema, +2 edema - 1-2+ pitting Neurological exam: PRESENT: alert, awake, oriented to person, oriented to place, oriented to time Results Laboratory Results: WBC 10.4 10^3/uL (4.0-10.5) 01/07/20 06:06 RBC 4.00 10^6/uL (4.35-5.55) L 01/07/20 06:06 Hgb 13.1 g/dL (13.5-17.0) L 01/07/20 06:06 Hct 38.5 % (37.9-51.0) 01/07/20 06:06 MCV 96 fl (80-97) 01/07/20 06:06 MCH 32.7 pg (27.0-33.4) 01/07/20 06:06 MCHC 34.0 g/dL (32.0-36.0) 01/07/20 06:06 RDW 14.7 % (11.5-14.0) H 01/07/20 06:06 Plt Count 235 10^3/uL (150-450) 01/07/20 06:06 Lymph % (Auto) 5.1 % (13-45) L 01/07/20 06:06 Holmes % (Auto) 4.2 % (3-13) 01/07/20 06:06 Eos % (Auto) 0.0 % (0-6) 01/07/20 06:06 Baso % (Auto) 0.4 % (0-2) 01/07/20 06:06 Absolute Neuts (auto) 9.4 10^3/uL (1.7-8.2) H 01/07/20 06:06 Absolute Lymphs (auto) 0.5 10^3/uL (0.5-4.7) 01/07/20 06:06 Absolute Monos (auto) 0.4 10^3/uL (0.1-1.4) 01/07/20 06:06 Absolute Eos (auto) 0.0 10^3/uL (0.0-0.6) 01/07/20 06:06 Absolute Basos (auto) 0.0 10^3/uL (0.0-0.2) 01/07/20 06:06 Seg Neutrophils % 90.3 % (42-78) H 01/07/20 06:06 Carbonic Acid 2.03 mmol/L (1.05-1.35) H 01/03/20 09:20 HCO3/H2CO3 Ratio 20:1 01/03/20 09:20 ABG pH 7.40 (7.35-7.45) 01/03/20 09:20 ABG pCO2 67.3 mmHg (35-45) H 01/03/20 09:20 ABG pO2 74.7 mmHg (80-100) L 01/03/20 09:20 ABG HCO3 40.6 mmol/L (20-24) H 01/03/20 09:20 ABG Total CO2 42.6 mmol/L (23-27) H 01/03/20 09:20 ABG O2 Saturation 94.5 % (94-98) 01/03/20 09:20 ABG Base Excess 12.6 mmol/L 01/03/20 09:20 VBG pH 7.28 (7.30-7.42) L 01/01/20 13:28 VBG pCO2 83.1 mmHg (35-63) H* 01/01/20 13:28 VBG HCO3 37.9 mmol/L (20-32) H 01/01/20 13:28 VBG Base Excess 7.8 mmol/L 01/01/20 13:28 FiO2 30% 01/03/20 09:20 Sodium 136.0 mmol/L (137-145) L 01/10/20 06:29 Potassium 4.9 mmol/L (3.6-5.0) 01/10/20 06:29 Chloride 100 mmol/L (98-107) 01/10/20 06:29 Carbon Dioxide 31 mmol/L (22-30) H 01/10/20 06:29 Anion Gap 5 (5-19) 01/10/20 06:29 BUN 35 mg/dL (7-20) H 01/10/20 06:29 Creatinine 1.02 mg/dL (0.52-1.25) 01/10/20 06:29 Est GFR ( Amer) > 60 (>60) 01/10/20 06:29 Est GFR (MDRD) Non-Af > 60 (>60) 01/10/20 06:29 Glucose 93 mg/dL (75-110) 01/10/20 06:29 Lactic Acid 1.8 mmol/L (0.7-2.1) 01/05/20 10:02 Calcium 9.2 mg/dL (8.4-10.2) 01/10/20 06:29 Phosphorus 3.4 mg/dL (2.5-4.5) 01/05/20 06:35 Magnesium 2.2 mg/dL (1.6-2.3) 01/09/20 05:52 Total Bilirubin 0.5 mg/dL (0.2-1.3) 01/01/20 13:28 Direct Bilirubin 0.1 mg/dL (0.0-0.4) 01/01/20 13:28 Neonat Total Bilirubin Not Reportable 01/01/20 13:28 Neonat Direct Bilirubin Not Reportable 01/01/20 13:28 Neonat Indirect Bili Not Reportable 01/01/20 13:28 AST 22 U/L (17-59) 01/01/20 13:28 ALT 12 U/L (<50) 01/01/20 13:28 Alkaline Phosphatase 104 U/L (38-126) 01/01/20 13:28 Troponin I < 0.012 ng/mL 01/01/20 13:28 NT-Pro-B Natriuret Pep 49 pg/mL (<125) 01/05/20 10:02 Total Protein 7.3 g/dL (6.3-8.2) 01/01/20 13:28 Albumin 4.0 g/dL (3.5-5.0) 01/01/20 13:28 Urine Color YELLOW 01/01/20 16:53 Urine Appearance SLIGHTLY-CLOUDY 01/01/20 16:53 Urine pH 5.0 (5.0-9.0) 01/01/20 16:53 Ur Specific Rogers 1.017 01/01/20 16:53 Urine Protein NEGATIVE mg/dL (NEGATIVE) 01/01/20 16:53 Urine Glucose (UA) NEGATIVE mg/dL (NEGATIVE) 01/01/20 16:53 Urine Ketones NEGATIVE mg/dL (NEGATIVE) 01/01/20 16:53 Urine Blood SMALL (NEGATIVE) H 01/01/20 16:53 Urine Nitrite POSITIVE (NEGATIVE) H 01/01/20 16:53 Urine Bilirubin NEGATIVE (NEGATIVE) 01/01/20 16:53 Urine Urobilinogen NEGATIVE mg/dL (<2.0) 01/01/20 16:53 Ur Leukocyte Esterase LARGE (NEGATIVE) H 01/01/20 16:53 Urine WBC (Auto) 153 /HPF 01/01/20 16:53 Urine RBC (Auto) 2 /HPF 01/01/20 16:53 Urine Bacteria (Auto) 1+ /HPF 01/01/20 16:53 Squamous Epi Cells Auto <1 /HPF 01/01/20 16:53 Urine Mucus (Auto) RARE /LPF 01/01/20 16:53 Urine Ascorbic Acid NEGATIVE (NEGATIVE) 01/01/20 16:53 Time Trough Drawn 0947 01/06/20 09:47 Vancomycin Trough < 5.0 ug/mL (5.0-20.0) L 01/06/20 09:47 Urine Opiates Screen NEGATIVE 01/05/20 11:00 Urine Methadone Screen NEGATIVE 01/05/20 11:00 Ur Barbiturates Screen NEGATIVE 01/05/20 11:00 Ur Phencyclidine Scrn NEGATIVE 01/05/20 11:00 Ur Amphetamines Screen NEGATIVE 01/05/20 11:00 U Benzodiazepines Scrn NEGATIVE 01/05/20 11:00 Urine Cocaine Screen NEGATIVE 01/05/20 11:00 U Marijuana (THC) Screen NEGATIVE 01/05/20 11:00 Serum Alcohol < 10 mg/dL (NONE DETECTED) 01/05/20 10:02 COVID-19 Source NASOPHARYNGEAL 01/01/20 18:00 COVID-19 (LENA) NOT DETECTED 01/01/20 18:00 01/01/20 01/05/20 13:28 10:02 Troponin I < 0.012 NT-Pro-B Natriuret Pep 52 49 Impressions: Chest X-Ray 01/01/20 13:12 IMPRESSION: NO ACUTE RADIOGRAPHIC FINDING IN THE CHEST. Venous Doppler Study 01/03/20 00:00 IMPRESSION: NO EVIDENCE DVT OR SVT IN EITHER LEG. Plan Goals: The patient will make his own follow-up appointment. Time Spent: Less than 30 Minutes Stroke Is this a Stroke Patient?: No Acute Heart Failure - Is this a Heart Failure Patient?: Yes Documentation of LVEF assessment?: Yes LVEF: LVEF Greater Than 40% Anticoagulant Therapy: N/A
[2020-01-10 13:13] VITALS: BP 124/65
== END 2020-01-10 14:10 | disposition home or self-care (01) | DRG 189 ==
LOC: ER 12:51 → EH 18:16 → 3N 20:18 → 3S 01-04 01:20
PROVIDERS: ADMIT Internal Medicine; ATTEND Internal Medicine
PROC: 5A09557 Assistance with Respiratory Ventilation, Greater than 96 Consecutive Hours, Continuous Positive Airway Pressure (ICD-10-PCS; principal; 2020-01-01)
DX: J96.11 Chronic respiratory failure with hypoxia (principal); J44.1 Chronic obstructive pulmonary disease with (acute) exacerbation; N39.0 Urinary tract infection, site not specified; Z68.41 Body mass index [BMI] 40.0-44.9, adult; E87.2 Acidosis; N17.9 Acute kidney failure, unspecified; R78.81 Bacteremia; I11.0 Hypertensive heart disease with heart failure; J96.22 Acute and chronic respiratory failure with hypercapnia; I50.813 Acute on chronic right heart failure; F17.210 Nicotine dependence, cigarettes, uncomplicated; Z99.81 Dependence on supplemental oxygen; I48.91 Unspecified atrial fibrillation; G47.30 Sleep apnea, unspecified; Z79.82 Long term (current) use of aspirin; Z79.899 Other long term (current) drug therapy; B96.4 Proteus (mirabilis) (morganii) as the cause of diseases classified elsewhere; E66.01 Morbid (severe) obesity due to excess calories; Z20.828 Contact with and (suspected) exposure to other viral communicable diseases; J01.90 Acute sinusitis, unspecified; F10.10 Alcohol abuse, uncomplicated; E87.5 Hyperkalemia
CPT/HCPCS: 36415; 36600; 71045; 80048; 80053; 80202; 80307; 81001; 82803; 83605; 83735; 83880; 84100; 84484; 85025; 87040; 87077; 87086; 87088; 87150; 87186; 87635; 93005; 93010; 93306; 93970; 94640; 94660; 96365; 96375; 99285; C9803; J0692; J0696; J1644; J1940; J2185; J2405; J2920; J3360; J3370; J3490; J7030; J7060

== ENCOUNTER 2020-03-01 13:37 | Inpatient (IN) | payer OTHER, BC ==
--- NOTE | 2020-03-01 14:07 | ER Document Report ---
ED General - General Chief Complaint: Leg Swelling Stated Complaint: LEG SWELLING [facility] [[facility]] - Follow up as needed Mode of Arrival: Wheelchair Information source: Patient Notes: Patient is a 59-year-old male presenting to the emergency department chief complaint of lower extremity swelling for 2 weeks and weeping for about the same period of time however when the patient got to the emergency department today he became profoundly short of breath. Pulse oximeter and triage was in the 70s. At time of presentation patient is using all accessory muscles and is tachypneic. TRAVEL OUTSIDE OF THE [place] IN LAST 30 DAYS: No - HPI Onset: Other - 2 weeks Onset/Duration: Gradual, Worse Quality of pain: Achy, Pressure Severity: Moderate Pain Level: 3 Associated symptoms: Chills, Shortness of breath Exacerbated by: Standing, Movement, Walking Relieved by: Denies Similar symptoms previously: Yes Recently seen / treated by doctor: No - Related Data Allergies/Adverse Reactions: No Known Allergies Allergy (Verified 10/21/17 13:20) Past Medical History - General Information source: Patient - Social History Smoking Status: Former Smoker Cigarette use (# per day): No Chew tobacco use (# tins/day): No Frequency of alcohol use: Heavy Drug Abuse: None Lives with: Spouse/Significant other Family History: Hypertension Patient has suicidal ideation: No Patient has homicidal ideation: No - Past Medical History Cardiac Medical History: Reports: Hx Atrial Fibrillation, Hx Congestive Heart Failure, Hx Hypertension Pulmonary Medical History: Reports: Hx COPD - on 5L home O2, Hx Pneumonia, Hx Intubation - 11/11/18, Hx Respiratory Failure, Hx Sleep Apnea - noncompliant with CPAP Endocrine Medical History: Denies: Hx Diabetes Mellitus Type 1, Hx Diabetes Mellitus Type 2 Renal/ Medical History: Reports: Hx End Stage Renal Disease. 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 Denies nasal or sinus congestion. CARDIOVASCULAR: Denies chest pain. RESPIRATORY: Per HPI GASTROINTESTINAL: Denies abdominal pain. Denies nausea, vomiting, or diarrhea. Denies constipation. GENITOURINARY: Denies difficulty urinating, painful urination, burning, frequency, or blood in urine. MUSCULOSKELETAL: Per HPI SKIN: Per HPI HEMATOLOGIC : Denies easy bruising or bleeding. NEUROLOGICAL: Denies altered mental status or loss of consciousness. Denies headache. Denies weakness or paralysis or loss of use of either side. Denies problems with gait or speech. Denies sensory or motor loss. PSYCHIATRIC: Denies suicidal or homicidal ideations 10 Systems are negative unless otherwise specified above Physical Exam - Vital signs Vitals: Resp BP Pulse Ox 40 H 139/70 H 99 03/01/20 13:55 03/01/20 13:55 03/01/20 13:55 - Notes Notes: PHYSICAL EXAMINATION: GENERAL: Patient is a morbidly obese 59-year-old male presenting to the emergency department in moderate respiratory distress HEAD: Atraumatic, normocephalic. EYES: Pupils equal round and reactive to light, extraocular movements intact, sclera anicteric, conjunctiva are normal. ENT: nares patent, oropharynx clear without exudates. Tachy mucous membranes. NECK: Normal range of motion, supple without lymphadenopathy, no appreciable JVD LUNGS: Lungs left lung field shows crackles to the bases right lung demonstrate markedly decreased lung sounds HEART: Regular rate and rhythm without murmurs ABDOMEN: Soft, minimally tender, normal bowel sounds. No guarding, no rebound. No masses appreciated. There is erythema to the waistline EXTREMITIES: Active full range of motion. No cyanosis. 2+ pulses x4 there is marked bilateral lower extremity swelling and erythema 2+ edema to the knees they are weeping. NEUROLOGICAL: No focal neurological deficits. Moves all extremities spontaneously and on command. SKIN: Warm, Dry, and intact. Normal turgor, no rashes or lesions noted. Except as noted above. Course - Re-evaluation Re-evalutation: 03/01/20 17:23 Patient has been maintained on a fly worker the entire time in the emergency department. Patient has been reevaluated multiple times. I did discuss the patient's condition with his she understands the need and is agreeable with admission. On presentation the patient was placed in hospital bed and started with nasal cannula and ultimately on a nonrebreather mask to get his oxygen saturation around 95%. Patient has gradually been weaned down to nasal cannula and currently is on 2 L and is saturating at 92%. Patient was also given 40 mg IV Lasix and an inch of Nitropaste to the anterior chest wall to help with his congestive heart failure and fluid retention. Patient was started on Rocephin for the cellulitis to lower extremities and abdomen. On reevaluation at this time the patient is able to speak in full sentences which is a marked improvement from his presentation. Patient's color is normalizing. Patient understands the need and is agreeable with admission. I have spoken with the hospitalist who is agreeable with care plan at admission. 03/01/20 17:25 Patient did have a Chan catheter placed because of difficulty with urination and strict input output monitoring. - Vital Signs Vital signs: Temp Pulse Resp BP Pulse Ox 17 147/76 H 95 03/01/20 16:02 03/01/20 16:02 03/01/20 16:02 - Laboratory Result Diagrams: 03/01/20 15:01 03/01/20 15:01 Laboratory results interpreted by me: 03/01/20 03/01/20 15:01 15:01 RBC 3.79 L Hgb 12.0 L Hct 36.9 L MCV 98 H RDW 14.6 H Chloride 95 L Carbon Dioxide 42 H* Anion Gap 2 L BUN 27 H Glucose 117 H - Diagnostic Test Radiology reviewed: Image reviewed, Reports reviewed - EKG Interpretation by Oh EKG shows normal: Sinus rhythm Rate: Normal Rhythm: NSR When compared to previous EKG there are: Previous EKG unavailable Critical Care Note - Critical Care Note Total time excluding time spent on procedures (mins): 35 Comments: Please allow 35 minutes of critical care time spent obtaining history from patient or surrogate, discussions with consultants, development of treatment plan with patient or surrogate, evaluation of patient's response to treatment, examination of patient. This also includes ordering and reviewing laboratory, EKG and / or radiologic studies, performing and reassessing treatments and interventions as well as reviewing previous visits and old charts. This is exclusive of separately billable procedures. Discharge - Discharge Clinical Impression: Acute hypercapnic respiratory failure, Hypoxia, Obesity (BMI 30-39.9) CHF (congestive heart failure) Qualifiers: Heart failure type: unspecified Heart failure chronicity: acute on chronic Qualified Code(s): I50.9 - Heart failure, unspecified Cellulitis Qualifiers: Site of cellulitis: extremity Site of cellulitis of extremity: lower extremity Laterality: unspecified laterality Qualified Code(s): L03.119 - Cellulitis of unspecified part of limb Condition: Fair Disposition: ADMITTED INPATIENT Admitting Provider: Trever (Hospitalist) Unit Admitted: Telemetry [facility] [[facility]] - Follow up as needed
--- NOTE | 2020-03-01 14:57 | RADIOLOGY REPORT (SQ) ---
EXAM DESCRIPTION: CHEST SINGLE VIEW IMAGES COMPLETED DATE/TIME: 03/01/2020 2:47 pm REASON FOR STUDY: sob COMPARISON: 01/01/2020. EXAM PARAMETERS: NUMBER OF VIEWS: One view. TECHNIQUE: Single frontal radiographic view of the chest acquired. RADIATION DOSE: NA LIMITATIONS: None. FINDINGS: LUNGS AND PLEURA: Chronic elevation of the right hemidiaphragm. Mild basilar atelectasis. No infiltrates, masses or pneumothorax. No pleural effusion. MEDIASTINUM AND HILAR STRUCTURES: No masses. Contour normal. HEART AND VASCULAR STRUCTURES: Heart normal in size. Normal vasculature. BONES: No acute findings. HARDWARE: None in the chest. OTHER: No other significant finding. IMPRESSION: NO ACUTE RADIOGRAPHIC FINDING IN THE CHEST. TECHNICAL DOCUMENTATION: JOB ID: [id number] 2010 [employer]- All Rights Reserved Reading location - IP/workstation name: [email or web address]
[2020-03-01 15:21] LABS: ABSOLUTE BASOPHILS # (AUTO) 0.1 10^3/uL (0.0-0.2); ABSOLUTE EOSINOPHILS # (AUTO) 0.1 10^3/uL (0.0-0.6); ABSOLUTE LYMPHOCYTES (AUTO) 1.5 10^3/uL (0.5-4.7); ABSOLUTE MONOCYTES (AUTO) 0.6 10^3/uL (0.1-1.4); ABSOLUTE NEUT (AUTO) 5.2 10^3/uL (1.7-8.2); BASOPHILS % (AUTO) 0.9 % (0-2); EOSINOPHILS % (AUTO) 1.9 % (0-6); HEMATOCRIT 36.9 % (37.9-51.0); LYMPHOCYTES % (AUTO) 19.7 % (13-45); MEAN CORPUSCULAR HEMOGLOBIN 31.8 pg (27.0-33.4); MEAN CORPUSCULAR HGB CONC 32.6 g/dL (32.0-36.0); MEAN CORPUSCULAR VOLUME 98 fl (80-97); MONOCYTES % (AUTO) 7.9 % (3-13); PLATELET COUNT 245 10^3/uL (150-450); RED BLOOD COUNT 3.79 10^6/uL (4.35-5.55); RED CELL DISTRIBUTION WIDTH 14.6 % (11.5-14.0); SEGMENTED NEUTROPHILS % (AUTO) 69.6 % (42-78); TOTAL CELLS COUNTED % (AUTO) 100 %; WHITE BLOOD COUNT 7.5 10^3/uL (4.0-10.5)
[2020-03-01] MEDS ORDERED: CEFTRIAXONE 1 GM/D5W RTU 1 GM/50 ML RTUPB IV ONE (15:21)
[2020-03-01] MEDS ORDERED: FUROSEMIDE INJ/PF 40 MG/4 ML SDV IV ONE (15:21)
[2020-03-01 15:39] LABS: ALBUMIN 3.6 g/dL (3.5-5.0); ALKALINE PHOSPHATASE 71 U/L (38-126); ASPARTATE AMINO TRANSFERASE 20 U/L (17-59); BILIRUBIN,DIRECT 0.3 mg/dL (0.0-0.4); BILIRUBIN,TOTAL 0.4 mg/dL (0.2-1.3); BLOOD UREA NITROGEN 27 mg/dL (7-20); CALCIUM 8.9 mg/dL (8.4-10.2); CHLORIDE 95 mmol/L (98-107); CREATINE KINASE 61 U/L (55-170); GLUCOSE 117 mg/dL (75-110); POTASSIUM 4.4 mmol/L (3.6-5.0); TOTAL PROTEIN 6.4 g/dL (6.3-8.2)
[2020-03-01 15:47] LABS: ANION GAP 2 (5-19)
[2020-03-01 15:49] LABS: CARBON DIOXIDE 42 mmol/L (22-30)
[2020-03-01 15:51] LABS: CREATINE KINASE MB 1.17 ng/mL (<4.55)
[2020-03-01 15:52] LABS: TROPONIN I < 0.012 ng/mL
[2020-03-01 16:10] LABS: NT PRO BNP 89 pg/mL (<125)
[2020-03-01] MEDS ORDERED: NITROGLYCERIN 2% OINTMENT 1 GM PACKET TP ONE (16:29)
[2020-03-01] MEDS ORDERED: ACETAMINOPHEN 325 MG TABLET PO PRN (17:19)
[2020-03-01] MEDS ORDERED: MAG HYDROX/AL HYDROX/SIMETH SUSP 30 ML UDCUP PO PRN (17:19)
[2020-03-01] MEDS ORDERED: ALBUTEROL SULFATE 0.083% NEB 2.5 MG/3 ML AMPUL NEB PRN (17:19)
[2020-03-01] MEDS ORDERED: ONDANSETRON HCL INJ/PF 4 MG/2 ML SDV IV PRN (17:19)
[2020-03-01 17:32] LABS: APPEARANCE,URINE SLIGHTLY-CLOUDY; BILIRUBIN,URINE NEGATIVE (NEGATIVE); COLOR,URINE YELLOW; GLUCOSE, URINE NEGATIVE (NEGATIVE); KETONES,URINE NEGATIVE (NEGATIVE); LEUKOCYTE ESTERASE,URINE LARGE (NEGATIVE); NITRITE,URINE POSITIVE (NEGATIVE); PROTEIN,URINE 100 mg/dL (NEGATIVE); URINE SPECIFIC GRAVITY 1.024; UROBILINOGEN,URINE NEGATIVE mg/dL (<2.0)
--- NOTE | 2020-03-01 18:24 | PDOC H&P ---
History of Present Illness Admission Date/PCP: 03/01/20 17:19 [facility] Patient complains of: Leg swelling and shortness of breath History of Present Illness: KAMERON TRUJILLO is a 59 year old male with history of CHF more likely right heart failure, COPD on home oxygen, nocturnal CPAP, chronic lower extremity swelling, who presents to the hospital once again for evaluation of lower extremity swelling. His symptoms started 1 week ago. He acknowledges dyspnea mostly present on ambulation. He states his lower extremity swelling was getting better but started to increase in the past week. He denies any chest pain. Denies any cough, fever, chills, nausea, vomiting. He admits to some orthopnea. States he uses CPAP at home but is not fully certain if truly CPAP versus BiPAP. Does feel drowsy. Has not been able to see his primary care provider at the [place] since. Still does not have a change number operator. In the ER, he was noted to be hypoxic. ER provider informs me that he was hypoxic on 2 L and subsequently still on 4 L and was transitioned to nonrebrea ther. Blood gas has not been checked at time of encounter. He was given ceftriaxone in the ER with concern for cellulitis of lower extremity. He was in the hospital few months ago and was treated with diuretics as well as BiPAP for his hypercapnic respiratory failure. He did have an DEMETRICE at that time. He was also treated for Pseudomonas UTI leading to bacteremia. 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 Musculoskeltal Medical History: Denies: Fibromyalgia Psychiatric Medical History: Reports: Depression Traumatic Medical History: Denies: Gunshot Wound, Pneumothorax Hematology: Denies: Sickle Cell Disease Infectious Medical History: Denies: Clostridium Difficile, HIV Past Surgical History Past Surgical History: Reports: Other Social History Lives with: Spouse/Significant other Smoking Status: Former Smoker Electronic Cigarette use?: No Frequency of Alcohol Use: Heavy Hx Recreational Drug Use: - denied when asked by nurse Drugs: None Hx Prescription Drug Abuse: Yes - Advance Directive Resuscitation Status: Full Code Family History Family History: Hypertension Parental Family History Reviewed: Yes Children Family History Reviewed: NA Sibling(s) Family History Reviewed.: NA Medication/Allergy Home Medications: Tamsulosin HCl [Flomax 0.4 mg Cap.sr] 0.4 mg PO DAILY 01/12/19 Furosemide [Lasix 40 mg Tablet] 40 mg PO DAILY 01/02/20 Lisinopril [Zestril] 40 mg PO DAILY 01/02/20 Acetaminophen [Tylenol 325 mg Tablet] 650 mg PO Q6HP PRN 01/06/20 Gabapentin [Neurontin 300 mg Capsule] 300 mg PO Q8 01/06/20 Melatonin [Melatonin 5 mg Tablet] 10 mg PO QHS 01/06/20 Sertraline HCl 50 mg PO DAILY 01/06/20 Albuterol Sulfate [Ventolin Hfa 8 gm Mdi] 2 puff IH Q6HP PRN #1 inhaler 01/10/20 Fluticasone Propionate [Flonase Nasal [place] 50 Mcg/[place] 16 gm] 1 spray NASL Q12 #1 inhaler 01/10/20 Albuterol Sulfate [Ventolin 0.083% Neb 2.5 mg/3 ml Ampul] 1 vial NEB Q6HP PRN 03/01/20 Potassium Chloride 10 meq PO DAILY 03/01/20 Allergies/Adverse Reactions: No Known Allergies Allergy (Verified 10/21/17 13:20) Review of Systems Constitutional: ABSENT: chills, fever(s) Eyes: ABSENT: visual disturbances Nose, Mouth, and Throat: ABSENT: headache(s) Cardiovascular: PRESENT: dyspnea on exertion. ABSENT: chest pain Respiratory: ABSENT: cough Gastrointestinal: ABSENT: abdominal pain, constipation, diarrhea, nausea, vomi ting Genitourinary: ABSENT: dysuria Musculoskeletal: ABSENT: back pain Integumentary: ABSENT: diaphoresis Neurological: ABSENT: dizziness Hematologic/Lymphatic: ABSENT: easy bleeding Allergic/Immunologic: PRESENT: other - Denies current rhinorrhea Physical Exam Vital Signs: Temp Pulse Resp BP Pulse Ox 17 147/76 H 95 03/01/20 16:02 03/01/20 16:02 03/01/20 16:02 Intake & Output 02/29/20 03/01/20 03/02/20 06:59 06:59 06:59 Intake Total 50 Balance 50 Weight 138.346 kg General appearance: PRESENT: no acute distress, cooperative Neck exam: ABSENT: JVD Respiratory exam: PRESENT: clear to auscultation abi, symmetrical, unlabored. ABSENT: stridor, tachypnea, wheezes Cardiovascular exam: PRESENT: RRR, +S1, +S2. ABSENT: tachycardia GI/Abdominal exam: PRESENT: soft. ABSENT: rebound, rigid, tenderness Extremities exam: PRESENT: pedal edema, +2 edema. ABSENT: calf tenderness Neurological exam: PRESENT: alert, awake, oriented to person, oriented to place, oriented to time, oriented to situation Psychiatric exam: PRESENT: appropriate affect, normal mood. ABSENT: agitated, anxious Focused psych exam: ABSENT: pressured speech Skin exam: ABSENT: jaundice Results Laboratory Results: 03/01/20 15:03/01/20 15:03/01/20 03/01/20 03/01/20 15:01 15:01 15:01 WBC 7.5 RBC 3.79 L Hgb 12.0 L Hct 36.9 L MCV 98 H MCH 31.8 MCHC 32.6 RDW 14.6 H Plt Count 245 Seg Neutrophils % 69.6 Sodium 138.7 Potassium 4.4 Chloride 95 L Carbon Dioxide 42 H* Anion Gap 2 L BUN 27 H Creatinine 0.89 Est GFR ( Amer) > 60 Glucose 117 H Lactic Acid 0.7 Calcium 8.9 Magnesium 2.2 Total Bilirubin 0.4 AST 20 Alkaline Phosphatase 71 Total Protein 6.4 Albumin 3.6 Urine Color Urine Appearance Urine pH Ur Specific [place] Urine Protein Urine Glucose (UA) Urine Ketones Urine Blood Urine Nitrite Ur Leukocyte Esterase Urine WBC (Auto) Urine RBC (Auto) 03/01/20 17:00 WBC RBC Hgb Hct MCV MCH MCHC RDW Plt Count Seg Neutrophils % Sodium Potassium Chloride Carbon Dioxide Anion Gap BUN Creatinine Est GFR ( Amer) Glucose Lactic Acid Calcium Magnesium Total Bilirubin AST Alkaline Phosphatase Total Protein Albumin Urine Color YELLOW Urine Appearance SLIGHTLY-CLOUDY Urine pH 7.0 Ur Specific [place] 1.024 Urine Protein 100 H Urine Glucose (UA) NEGATIVE Urine Ketones NEGATIVE Urine Blood NEGATIVE Urine Nitrite POSITIVE H Ur Leukocyte Esterase LARGE H Urine WBC (Auto) 154 Urine RBC (Auto) 6 03/01/20 03/01/20 15:01 15:01 Creatine Kinase 61 CK-MB (CK-2) 1.17 Troponin I < 0.012 NT-Pro-B Natriuret Pep 89 Impressions: Chest X-Ray 03/01/20 13:59 IMPRESSION: NO ACUTE RADIOGRAPHIC FINDING IN THE CHEST. Assessment and Plan - Diagnosis (1) Acute and chronic respiratory failure with hypercapnia Is this a current diagnosis for this admission?: Yes Plan: Patient appears drowsy. His CO2 on BMP is also 42 which is significantly elevated from it was on discharge. I suspect patient may be having worsening hypercapnic respiratory failure secondary to obesity hypoventilation syndrome and COPD. Blood gas has not been done so I instructed respiratory therapist to get a blood gas, patient is on 2 L nasal cannula. During encounter, patient was pulling SPO2 of 91% on 2 L which is adequate for him. We will have patient rest with BiPAP once blood gases obtained. Patient states he has CPAP at home. I will have discharge planning looking to possibility of setting patient up with BiPAP machine as this has become a recurrent problem. (2) Swelling of lower extremity Is this a current diagnosis for this admission?: Yes Plan: Certainly does not have cellulitis. Lower extremity swelling is chronic for patient and likely due to component of chronic venous stasis patient chronic diastolic heart failure. BNP is currently normal. Chest x-ray is unremarkable Most recent echocardiogram showed only mild pulmonary hypertension with normal left ventricular systolic and diastolic function. We will resume patient's home diuretics. Encourage leg elevation and instructed nurse to place Dmitry wrap. (3) Obesity hypoventilation syndrome Is this a current diagnosis for this admission?: Yes Plan: Plan as per problem #1. Patient will benefit more from BiPAP and CPAP upon discharge. (4) Chronic respiratory failure with hypoxia Is this a current diagnosis for this admission?: Yes Plan: Would avoid putting patient on excessive oxygen supplementation as this can worsen CO2 retention. Chronic hypoxia secondary to COPD. Currently not in a cute exacerbation. Uses 3 L nasal cannula at home. Goal SPO2 89 to 92%. (5) Abnormal urinalysis Is this a current diagnosis for this admission?: Yes Plan: Does not endorse any urinary symptoms to me currently. Was treated for Ps eudomonas bacteremia and Pseudomonas UTI recent admission. Did receive ceftriaxone in the ER but I will hold off on antibiotics unless he starts to express urinary symptoms or becomes bacteremic again. - Time Time Spent with patient: 35 or more minutes Anticipated Discharge Disposition: Home, Self Care Anticipated Discharge Timeframe: within 48 hours
[2020-03-01] MEDS ORDERED: FUROSEMIDE 20 MG TABLET PO ONE (18:29)
[2020-03-01] MEDS: TAMSULOSIN HCL 0.4 MG CAP.SR.24H PO SCH (18:44)
[2020-03-01] MEDS: ENOXAPARIN SODIUM INJ 40 MG/0.4 ML DISP.SYRIN SUBCUT SCH (18:45)
[2020-03-01] MEDS ORDERED: FUROSEMIDE 40 MG TABLET PO ONE (19:00)
[2020-03-01] MEDS ORDERED: LISINOPRIL 10 MG TABLET PO ONE (19:00)
[2020-03-01] MEDS: IPRATROPIUM/ALBUTEROL 0.5-2.5 MG/3 ML AMPUL NEB SCH (19:40)
[2020-03-01 19:55] LABS: ARTERIAL BLOOD BASE EXCESS 7.7 mmol/L; ARTERIAL BLOOD H2CO3 2.72 mmol/L (1.05-1.35); ARTERIAL BLOOD HCO3 38.2 mmol/L (20-24); ARTERIAL BLOOD O2 SATURATION 90.1 % (94-98); ARTERIAL BLOOD PH 7.24 (7.35-7.45); ARTERIAL BLOOD PO2 70.4 mmHg (80-100)
[2020-03-01 19:56] LABS: ARTERIAL BLOOD FIO2 28%
[2020-03-01 19:59] LABS: ARTERIAL BLOOD PCO2 90.4 mmHg (35-45)
[2020-03-02 00:18] LABS: ARTERIAL BLOOD BASE EXCESS 12.5 mmol/L; ARTERIAL BLOOD HCO3 41.5 mmol/L (20-24); ARTERIAL BLOOD O2 SATURATION 93.6 % (94-98); ARTERIAL BLOOD PH 7.33 (7.35-7.45); ARTERIAL BLOOD PO2 76.1 mmHg (80-100); ARTERIAL BLOOD TOTAL CO2 43.9 mmol/L (23-27)
[2020-03-02 00:24] LABS: ARTERIAL BLOOD FIO2 30%; ARTERIAL BLOOD PCO2 79.9 mmHg (35-45)
[2020-03-02] MEDS: MELATONIN 5 MG TABLET PO SCH ×2 (00:31→22:22)
[2020-03-02] MEDS: GABAPENTIN 300 MG CAPSULE PO SCH ×3 (00:32→22:22)
[2020-03-02] MEDS: FLUTICASONE NASAL SPRAY 50 MCG/SPRY 120 SPRAY/16 GM NASL SCH ×3 (01:27→22:23)
[2020-03-02] MEDS: IPRATROPIUM/ALBUTEROL 0.5-2.5 MG/3 ML AMPUL NEB SCH ×4 (02:16→20:26)
[2020-03-02 06:39] LABS: VENOUS BLOOD BASE EXCESS 6.6 mmol/L; VENOUS BLOOD HCO3 36.6 mmol/L (20-32); VENOUS BLOOD PH 7.25 (7.30-7.42)
[2020-03-02 06:41] LABS: HEMATOCRIT 34.8 % (37.9-51.0); HEMOGLOBIN 11.5 g/dL (13.5-17.0); MEAN CORPUSCULAR HEMOGLOBIN 32.1 pg (27.0-33.4); MEAN CORPUSCULAR HGB CONC 33.1 g/dL (32.0-36.0); MEAN CORPUSCULAR VOLUME 97 fl (80-97); PLATELET COUNT 232 10^3/uL (150-450); RED BLOOD COUNT 3.59 10^6/uL (4.35-5.55); RED CELL DISTRIBUTION WIDTH 14.3 % (11.5-14.0)
[2020-03-02 07:00] LABS: ANION GAP 5 (5-19); BLOOD UREA NITROGEN 36 mg/dL (7-20); CALCIUM 8.9 mg/dL (8.4-10.2); CARBON DIOXIDE 39 mmol/L (22-30); CHLORIDE 95 mmol/L (98-107); GLUCOSE 108 mg/dL (75-110); POTASSIUM 4.4 mmol/L (3.6-5.0)
[2020-03-02 07:03] LABS: ARTERIAL BLOOD BASE EXCESS 11.1 mmol/L; ARTERIAL BLOOD H2CO3 2.31 mmol/L (1.05-1.35); ARTERIAL BLOOD HCO3 39.7 mmol/L (20-24); ARTERIAL BLOOD O2 SATURATION 93.5 % (94-98); ARTERIAL BLOOD PH 7.33 (7.35-7.45); ARTERIAL BLOOD PO2 75.2 mmHg (80-100)
[2020-03-02 07:05] LABS: ARTERIAL BLOOD FIO2 30%
[2020-03-02 07:06] LABS: ARTERIAL BLOOD PCO2 76.8 mmHg (35-45)
[2020-03-02 07:06] LABS: VENOUS BLOOD PCO2 85.7 mmHg (35-63)
[2020-03-02] MEDS ORDERED: FLUTICASONE/VILANTEROL 100-25 MCG/DOSE IH SCH (10:00)
[2020-03-02] MEDS: SERTRALINE HCL 50 MG TABLET PO SCH (10:58)
[2020-03-02] MEDS: LISINOPRIL 10 MG TABLET PO SCH (11:01)
[2020-03-02] MEDS: FUROSEMIDE 40 MG TABLET PO SCH (11:02)
[2020-03-02] MEDS: ENOXAPARIN SODIUM INJ 40 MG/0.4 ML DISP.SYRIN SUBCUT SCH (11:05)
[2020-03-02] MEDS: FLUTICASONE/VILANTEROL 200-25 MCG/DOSE IH SCH (11:11)
--- NOTE | 2020-03-02 16:13 | Progress Note ---
Provider Note Provider Note: March 02, 2020 Was asked to look at the patient's legs. Erythema Stasis dermatitis Serous drainage
[2020-03-02] MEDS: TAMSULOSIN HCL 0.4 MG CAP.SR.24H PO SCH (18:01)
--- NOTE | 2020-03-02 23:15 | PDOC PROGRESS REPORT ---
Subjective Progress Note for:: 03/02/20 Subjective:: The patient is currently on BiPAP. He has a history of heart failure and COPD as well as sleep apnea. on bipap worried about legs ?pus Reason For Visit: HYPOXIA,HYPERCAPNIA,OHS Physical Exam Vital Signs: Temp Pulse Resp BP Pulse Ox 97.8 F 64 32 H 99/52 L 96 03/02/20 19:26 03/02/20 20:27 03/02/20 20:27 03/02/20 19:26 03/02/20 20:27 Intake & Output 03/01/20 03/02/20 03/03/20 06:59 06:59 06:59 Intake Total 850 1697 Output Total 700 Balance 150 1697 Weight 135.5 kg General appearance: PRESENT: mild distress, morbidly obese, other - Wearing BiPAP Ear exam: PRESENT: normal external ear exam. ABSENT: bleeding, drainage Respiratory exam: PRESENT: clear to auscultation abi - Anteriorly, symmetrical, unlabored, other - BiPAP mask in place. ABSENT: rales, rhonchi, tachypnea, wheezes Cardiovascular exam: PRESENT: RRR, +S1, +S2 GI/Abdominal exam: PRESENT: normal bowel sounds, soft, other - Protuberant abdomen. ABSENT: tenderness Rectal exam: PRESENT: deferred Extremities exam: PRESENT: pedal edema, +1 edema Musculoskeletal exam: PRESENT: normal inspection. ABSENT: deformity, dislocation Neurological exam: PRESENT: alert, awake, oriented to person, oriented to place, oriented to situation, other - Somewhat difficult to understand due to BiPAP mask. Psychiatric exam: PRESENT: anxious. ABSENT: agitated Focused psych exam: ABSENT: delusional, paranoid, restlessness Skin exam: PRESENT: erythema - Very mild erythema on the lower extremities consistent with a stasis dermatitis, other - Small scabbed open areas mostly on the calf region. The patient just had his compression wraps removed. No active drainage currently. Results Laboratory Results: 03/02/20 06:21 03/02/20 06:21 03/01/20 03/02/20 03/02/20 23:40 06:21 06:21 WBC 9.0 RBC 3.59 L Hgb 11.5 L Hct 34.8 L MCV 97 MCH 32.1 MCHC 33.1 RDW 14.3 H Plt Count 232 Carbonic Acid 2.40 H HCO3/H2CO3 Ratio 17:1 ABG pH 7.33 L ABG pCO2 79.9 H* ABG pO2 76.1 L ABG HCO3 41.5 H ABG O2 Saturation 93.6 L ABG Base Excess 12.5 VBG pH 7.25 L VBG pCO2 85.7 H* VBG HCO3 36.6 H VBG Base Excess 6.6 FiO2 30% Sodium Potassium Chloride Carbon Dioxide Anion Gap BUN Creatinine Est GFR ( Amer) Glucose Calcium Phosphorus Magnesium 03/02/20 03/02/20 06:21 06:37 WBC RBC Hgb Hct MCV MCH MCHC RDW Plt Count Carbonic Acid 2.31 H HCO3/H2CO3 Ratio 17:1 ABG pH 7.33 L ABG pCO2 76.8 H* ABG pO2 75.2 L ABG HCO3 39.7 H ABG O2 Saturation 93.5 L ABG Base Excess 11.1 VBG pH VBG pCO2 VBG HCO3 VBG Base Excess FiO2 30% Sodium 139.3 Potassium 4.4 Chloride 95 L Carbon Dioxide 39 H Anion Gap 5 BUN 36 H Creatinine 1.29 H Est GFR ( Amer) > 60 Glucose 108 Calcium 8.9 Phosphorus 5.0 H Magnesium 2.2 03/01/20 03/01/20 15:01 15:01 Creatine Kinase 61 CK-MB (CK-2) 1.17 Troponin I < 0.012 NT-Pro-B Natriuret Pep 89 Impressions: Chest X-Ray 03/01/20 13:59 IMPRESSION: NO ACUTE RADIOGRAPHIC FINDING IN THE CHEST. Assessment and Plan - Diagnosis (1) Acute on chronic respiratory failure with hypoxia and hypercapnia Is this a current diagnosis for this admission?: Yes Plan: Continue BiPAP. Patient still has elevated PCO2. Will repeat blood gas in the morning. Scheduled nebulizers with as needed treatments available (2) Obesity hypoventilation syndrome Is this a current diagnosis for this admission?: Yes Plan: Chronic issue. Probably the most acute cause of his respiratory failure. (3) COPD (chronic obstructive pulmonary disease) Qualifiers: COPD type: unspecified COPD Qualified Code(s): J44.9 - Chronic obstructive pulmonary disease, unspecified Is this a current diagnosis for this admission?: Yes Plan: Continue nebulizer treatments and BiPAP therapy (4) Lymphedema Is this a current diagnosis for this admission?: Yes Plan: Chronic lymphedema. Currently applying compression wraps. (5) Stasis dermatitis of both legs Is this a current diagnosis for this admission?: Yes Plan: I believe the erythema is stasis dermatitis and not cellulitis (6) Abnormal urinalysis Is this a current diagnosis for this admission?: Yes Plan: Urine culture is requested. Patient not complaining of symptoms. Will compare results to previous cultures and treat if symptomatic. (7) Mild pulmonary hypertension Is this a current diagnosis for this admission?: Yes Plan: Likely contributing to his respiratory failure but minor compared to obesity hypoventilation and COPD - Time Time Spent with patient: Less than 15 minutes Medications reviewed and adjusted accordingly: Yes Anticipated Discharge Disposition: Home, Self Care Anticipated Discharge Timeframe: Unknown
[2020-03-03] MEDS: IPRATROPIUM/ALBUTEROL 0.5-2.5 MG/3 ML AMPUL NEB SCH ×4 (02:25→20:46)
[2020-03-03] MEDS ORDERED: MORPHINE SULFATE 10 MG/ML INJ IV PRN (02:43)
[2020-03-03 08:46] LABS: ARTERIAL BLOOD BASE EXCESS 6.4 mmol/L; ARTERIAL BLOOD FIO2 2.5L; ARTERIAL BLOOD H2CO3 2.01 mmol/L (1.05-1.35); ARTERIAL BLOOD HCO3 34.4 mmol/L (20-24); ARTERIAL BLOOD O2 SATURATION 95.1 % (94-98); ARTERIAL BLOOD PCO2 66.8 mmHg (35-45); ARTERIAL BLOOD PH 7.33 (7.35-7.45); ARTERIAL BLOOD PO2 82.8 mmHg (80-100); ARTERIAL BLOOD TOTAL CO2 36.5 mmol/L (23-27)
[2020-03-03] MEDS: FUROSEMIDE 40 MG TABLET PO SCH (10:26)
[2020-03-03] MEDS: GABAPENTIN 300 MG CAPSULE PO SCH ×2 (10:26→21:44)
[2020-03-03] MEDS: SERTRALINE HCL 50 MG TABLET PO SCH (10:26)
[2020-03-03] MEDS: LISINOPRIL 10 MG TABLET PO SCH (10:26)
[2020-03-03] MEDS: PANTOT AC/MIN OIL/PET HY-PHL OINT 50 GM TOP SCH (10:28)
[2020-03-03] MEDS: FLUTICASONE/VILANTEROL 200-25 MCG/DOSE IH SCH (10:29)
[2020-03-03] MEDS: FLUTICASONE NASAL SPRAY 50 MCG/SPRY 120 SPRAY/16 GM NASL SCH ×2 (10:30→21:44)
[2020-03-03] MEDS: ENOXAPARIN SODIUM INJ 40 MG/0.4 ML DISP.SYRIN SUBCUT SCH (10:31)
--- NOTE | 2020-03-03 17:24 | PDOC PROGRESS REPORT ---
Subjective Subjective:: Patient admitted for acute on chronic severe hypercarbic and hypoxemic respiratory failure, worsening bilateral lower extremity edema with weeping fluid. Patient looks rather well today probably at or near his baseline. He states his breathing is not back to normal though and his legs are typically not this severely swollen. Per my discussions with staff there is some question as to his actual compliance with his home BiPAP and his medications. Reportedly, his BiPAP mask and tubing is extremely dirty and old. He has [facility] and he will need to reach out to them to schedule DME deliveries to his home so this does not happen in the future. I had a long discussion with him today about losing weight via diet control as his current condition and will be extremely difficult and potentially unsafe for him to exert himself enough to burn calories. I encouraged him to explore a vegan diet with some vitamin supplements however he was not at all interested in this idea. Creatinine is mildly elevated today, blood cultures are negative. He needs to wear compression stockings. He can likely go home tomorrow. He has no new complaints. Reason For Visit: HYPOXIA,HYPERCAPNIA,OHS Physical Exam Vital Signs: Temp Pulse Resp BP Pulse Ox 98.0 F 69 22 H 111/67 96 03/03/20 16:12 03/03/20 16:12 03/03/20 16:12 03/03/20 16:12 03/03/20 16:12 Intake & Output 03/02/20 03/03/20 03/04/20 06:59 06:59 06:59 Intake Total 850 1918 Output Total 700 Balance 150 1918 Weight 135.5 kg 135.8 kg General appearance: PRESENT: no acute distress, cooperative, morbidly obese Head exam: PRESENT: atraumatic, normocephalic Eye exam: PRESENT: conjunctiva pink Mouth exam: PRESENT: moist Respiratory exam: PRESENT: clear to auscultation abi. ABSENT: rales, rhonchi, wheezes Cardiovascular exam: PRESENT: RRR. ABSENT: diastolic murmur, rubs, systolic murmur GI/Abdominal exam: PRESENT: normal bowel sounds, soft. ABSENT: distended, guarding, mass, organolmegaly, rebound, tenderness Extremities exam: PRESENT: pedal edema, +2 edema, other - Weeping bilateral lower extremity edema, mild Neurological exam: PRESENT: alert, awake, oriented to person, oriented to place, oriented to time, oriented to situation Psychiatric exam: PRESENT: appropriate affect, normal mood Skin exam: PRESENT: dry, intact, warm Results Laboratory Results: 03/02/20 06:21 03/02/20 06:21 03/03/20 08:28 Carbonic Acid 2.01 H HCO3/H2CO3 Ratio 17:1 ABG pH 7.33 L ABG pCO2 66.8 H ABG pO2 82.8 ABG HCO3 34.4 H ABG O2 Saturation 95.1 ABG Base Excess 6.4 FiO2 2.5L 03/01/20 03/01/20 15:01 15:01 Creatine Kinase 61 CK-MB (CK-2) 1.17 Troponin I < 0.012 NT-Pro-B Natriuret Pep 89 Impressions: Chest X-Ray 03/01/20 13:59 IMPRESSION: NO ACUTE RADIOGRAPHIC FINDING IN THE CHEST. Assessment and Plan - Diagnosis (1) Acute on chronic respiratory failure with hypoxia and hypercapnia Is this a current diagnosis for this admission?: Yes Plan: Continue BiPAP. Patient is on 2 L supplemental oxygen and home BiPAP at baseline, highly suspect he is noncompliant with this despite his assurance that he uses it every time he sleeps. Mask is very dirty and in disrepair. He will be given a new mask with hosing and discharge from the hospital. [facility] will need [facility] of [facility] to his [facility]. Repeat ABG shows improvement Scheduled nebulizers with as needed treatments available (2) Swelling of lower extremity Is this a current diagnosis for this admission?: Yes Plan: Per previous physician: "Certainly does not have cellulitis. Lower extremity swelling is chronic for patient and likely due to component of chronic venous stasis patient chronic diastolic heart failure. BNP is currently normal. Chest x-ray is unremarkable Most recent echocardiogram showed only mild pulmonary hypertension with normal left ventricular systolic and diastolic function. We will resume patient's home diuretics. Encourage leg elevation and instructed nurse to place Dmitry wrap." 03/03/2022 Needs compression stockings, ordered Home senior living for medication teaching, home PT (3) Lymphedema Is this a current diagnosis for this admission?: Yes Plan: Chronic lymphedema. Needs compression stockings if he will agree to wear them (4) Mild pulmonary hypertension Is this a current diagnosis for this admission?: Yes Plan: Likely contributing to his respiratory failure but minor compared Multifactorial due to obesity hypoventilation, OHS, and COPD May benefit from RHC with catheter directed vasoactive drug testing (5) Stasis dermatitis of both legs Is this a current diagnosis for this admission?: Yes Plan: -not cellulitis (6) COPD (chronic obstructive pulmonary disease) Qualifiers: COPD type: unspecified COPD Qualified Code(s): J44.9 - Chronic obstructive pulmonary disease, unspecified Is this a current diagnosis for this admission?: Yes Plan: -Continue nebulizer treatments and BiPAP therapy (7) HTN (hypertension) Qualifiers: Hypertension type: essential hypertension Qualified Code(s): I10 - Essential (primary) hypertension Is this a current diagnosis for this admission?: Yes (8) Morbid obesity with BMI of 40.0-44.9, adult Is this a current diagnosis for this admission?: Yes Plan: Encouraged patient to switch to a vegan diet but he is not interested in this idea - Time Time Spent with patient: 25-34 minutes Medications reviewed and adjusted accordingly: Yes Anticipated Discharge Disposition: Home with Home Health Anticipated Discharge Timeframe: within 24 hours - Inpatient Certification Based on my medical assessment, after consideration of the patient's comorbidities, presenting symptoms, or acuity I expect that the services needed warrant INPATIENT care.: Yes I certify that my determination is in accordance with my understanding of Medicare's requirements for reasonable and necessary INPATIENT services [42 CFR 412.3e].: Yes Medical Necessity: Significant Comorbidiites Make Outpatient Treatment Too Risky, Need Close Monitoring Due to Risk of Patient Decompensation, Risk of Complication if Not Cared For in Hospital, Risk of Diagnosis Which Will Require Inpatient Eval/Care/Monitoring
[2020-03-03] MEDS: TAMSULOSIN HCL 0.4 MG CAP.SR.24H PO SCH (18:21)
[2020-03-03] MEDS: MELATONIN 5 MG TABLET PO SCH (21:44)
[2020-03-03] MEDS ORDERED: MEROPENEM 1 GM VIAL IV PRN (23:33)
[2020-03-03] MEDS ORDERED: MEROPENEM 1 GM in NORMAL SALINE 50 ML IV ONE (23:45)
[2020-03-04] MEDS ORDERED: MEROPENEM 1 GM VIAL ONE (01:04)
[2020-03-04] MEDS: IPRATROPIUM/ALBUTEROL 0.5-2.5 MG/3 ML AMPUL NEB SCH ×4 (02:12→20:12)
[2020-03-04] MEDS ORDERED: MEROPENEM 1 GM in NORMAL SALINE 50 ML IV SCH (06:00)
[2020-03-04 09:58] LABS: ABSOLUTE BASOPHILS # (AUTO) 0.1 10^3/uL (0.0-0.2); ABSOLUTE EOSINOPHILS # (AUTO) 0.2 10^3/uL (0.0-0.6); ABSOLUTE LYMPHOCYTES (AUTO) 1.8 10^3/uL (0.5-4.7); ABSOLUTE MONOCYTES (AUTO) 0.7 10^3/uL (0.1-1.4); ABSOLUTE NEUT (AUTO) 4.4 10^3/uL (1.7-8.2); EOSINOPHILS % (AUTO) 2.2 % (0-6); HEMATOCRIT 37.4 % (37.9-51.0); HEMOGLOBIN 12.5 g/dL (13.5-17.0); LYMPHOCYTES % (AUTO) 24.7 % (13-45); MEAN CORPUSCULAR HEMOGLOBIN 31.9 pg (27.0-33.4); MEAN CORPUSCULAR HGB CONC 33.4 g/dL (32.0-36.0); MEAN CORPUSCULAR VOLUME 96 fl (80-97); MONOCYTES % (AUTO) 10.3 % (3-13); PLATELET COUNT 264 10^3/uL (150-450); RED BLOOD COUNT 3.91 10^6/uL (4.35-5.55); RED CELL DISTRIBUTION WIDTH 14.7 % (11.5-14.0); SEGMENTED NEUTROPHILS % (AUTO) 61.8 % (42-78); TOTAL CELLS COUNTED % (AUTO) 100 %; WHITE BLOOD COUNT 7.2 10^3/uL (4.0-10.5)
[2020-03-04 10:07] LABS: ANION GAP 7 (5-19); BLOOD UREA NITROGEN 29 mg/dL (7-20); CALCIUM 9.6 mg/dL (8.4-10.2); CARBON DIOXIDE 38 mmol/L (22-30); CHLORIDE 95 mmol/L (98-107); GLUCOSE 91 mg/dL (75-110); POTASSIUM 5.3 mmol/L (3.6-5.0)
[2020-03-04] MEDS: FUROSEMIDE 40 MG TABLET PO SCH (10:11)
[2020-03-04] MEDS: LISINOPRIL 10 MG TABLET PO SCH (10:12)
[2020-03-04] MEDS: GABAPENTIN 300 MG CAPSULE PO SCH ×2 (10:12→21:40)
[2020-03-04] MEDS: SERTRALINE HCL 50 MG TABLET PO SCH (10:12)
[2020-03-04] MEDS: ENOXAPARIN SODIUM INJ 40 MG/0.4 ML DISP.SYRIN SUBCUT SCH (10:12)
[2020-03-04] MEDS: FLUTICASONE NASAL SPRAY 50 MCG/SPRY 120 SPRAY/16 GM NASL SCH (10:13)
[2020-03-04] MEDS: FLUTICASONE/VILANTEROL 200-25 MCG/DOSE IH SCH (10:13)
[2020-03-04] MEDS: PANTOT AC/MIN OIL/PET HY-PHL OINT 50 GM TOP SCH (10:14)
[2020-03-04] MEDS ORDERED: NORMAL SALINE 1000 ML 1,000 ML IV PRN ×2 (15:09→15:17)
--- NOTE | 2020-03-04 15:23 | PDOC PROGRESS REPORT ---
Subjective Subjective:: Patient admitted for acute on chronic severe hypercarbic and hypoxemic respiratory failure, worsening bilateral lower extremity edema with weeping fluid. Patient looks rather well today probably at or near his baseline. He states his breathing is not back to normal though and his legs are typically not this severely swollen. Per my discussions with staff there is some question as to his actual compliance with his home BiPAP and his medications. Reportedly, his BiPAP mask and tubing is extremely dirty and old. [facility] and he will need to reach out to them to schedule DME deliveries to his home so this does not happen in the future. I had a long discussion with him today about losing weight via diet control as his current condition and will be extremely difficult and potentially unsafe for him to exert himself enough to burn calories. I encouraged him to explore a vegan diet with some vitamin supplements however he was not at all interested in this idea. Creatinine is mildly elevated today, blood cultures are negative. He needs to wear compression stockings. He can likely go home tomorrow. He has no new complaints. 03/04/2020 Patient's creatinine has increased to consecutive BMP checks. I looked back at his previous admissions and it seems that this is a recurring pattern where he has diuresed to the point where he experiences prerenal azotemia and he must be rehydrated. I believe we are in that situation again now. I have stopped his lisinopril and Lasix and I have started him on very gentle IV fluids that can run until tomorrow. We will recheck his BMP tomorrow and if his creatinine has improved significantly, he could be discharged at that point. It is likely he will not be able to tolerate daily Lasix and may only be able to take this every 48 hours. I also ordered him thigh-high compression stockings today as he seems to be tolerating the calf high stockings pretty well. He had a positive blood culture 1/2 bottles reported to the fx artist last night. It was reported to me this morning that the cultures were growing gram-negative rods and he was started on Merrem. This was not actually true as the patient was growing gram-positive rods which are almost certainly a contaminant and he is clinically without any sign or symptom of infection. Merrem is stopped. Probable discharge tomorrow. Reason For Visit: HYPOXIA,HYPERCAPNIA,OHS Physical Exam Vital Signs: Temp Pulse Resp BP Pulse Ox 97.5 F 68 18 121/74 94 03/04/20 11:33 03/04/20 13:25 03/04/20 13:25 03/04/20 11:33 03/04/20 13:25 Intake & Output 03/03/20 03/04/20 03/05/20 06:59 06:59 06:59 Intake Total 1917 2280 440 Balance 19170 440 Weight 135.8 kg 134.8 kg Exam: General appearance: PRESENT: no acute distress, cooperative, morbidly obese, states he is tolerating his compression stockings quite well Head exam: PRESENT: atraumatic, normocephalic Eye exam: PRESENT: conjunctiva pink Mouth exam: PRESENT: moist Respiratory exam: PRESENT: clear to auscultation abi. ABSENT: rales, rhonchi, wheezes Cardiovascular exam: PRESENT: RRR. ABSENT: diastolic murmur, rubs, systolic murmur GI/Abdominal exam: PRESENT: normal bowel sounds, soft. ABSENT: distended, guarding, mass, organolmegaly, rebound, tenderness Extremities exam: PRESENT: pedal edema, +2 edema, other - Weeping bilateral lower extremity edema, mild Neurological exam: PRESENT: alert, awake, oriented to person, oriented to place, oriented to time, oriented to situation Psychiatric exam: PRESENT: appropriate affect, normal mood Skin exam: PRESENT: dry, intact, warm Results Laboratory Results: 03/04/20 09:20 03/04/20 09:20 03/04/20 03/04/20 09:20 09:20 WBC 7.2 RBC 3.91 L Hgb 12.5 L Hct 37.4 L MCV 96 MCH 31.9 MCHC 33.4 RDW 14.7 H Plt Count 264 Seg Neutrophils % 61.8 Sodium 140.2 Potassium 5.3 H Chloride 95 L Carbon Dioxide 38 H Anion Gap 7 BUN 29 H Creatinine 1.46 H Est GFR ( Amer) 59 L Glucose 91 Calcium 9.6 03/01/20 15:01 Blood Blood Culture (PCR) - Final 03/03/20 14:00 Clean Catch Midstream Urine Culture - Final Mixed Urogenital Laine 03/01/20 03/01/20 15:01 15:01 Creatine Kinase 61 CK-MB (CK-2) 1.17 Troponin I < 0.012 NT-Pro-B Natriuret Pep 89 Impressions: Chest X-Ray 03/01/20 13:59 IMPRESSION: NO ACUTE RADIOGRAPHIC FINDING IN THE CHEST. Assessment and Plan - Diagnosis (1) Acute on chronic respiratory failure with hypoxia and hypercapnia Is this a current diagnosis for this admission?: Yes (2) Swelling of lower extremity Is this a current diagnosis for this admission?: Yes (3) Lymphedema Is this a current diagnosis for this admission?: Yes (4) Mild pulmonary hypertension Is this a current diagnosis for this admission?: Yes (5) Stasis dermatitis of both legs Is this a current diagnosis for this admission?: Yes (6) COPD (chronic obstructive pulmonary disease) Qualifiers: COPD type: unspecified COPD Qualified Code(s): J44.9 - Chronic obstructive pulmonary disease, unspecified Is this a current diagnosis for this admission?: Yes (7) HTN (hypertension) Qualifiers: Hypertension type: essential hypertension Qualified Code(s): I10 - Essential (primary) hypertension Is this a current diagnosis for this admission?: Yes (8) Morbid obesity with BMI of 40.0-44.9, adult Is this a current diagnosis for this admission?: Yes (9) DEMETRICE (acute kidney injury) Is this a current diagnosis for this admission?: Yes Plan: Seems to recur each time he is diuresed per review of previous admissions, is occurring again now Also has associated hyperkalemia Hold Lasix and lisinopril and heparin products Gentle IV fluids Can restart lisinopril in about 1 week, may only be able to tolerate Lasix every other day long-term - Time Time Spent with patient: 25-34 minutes Medications reviewed and adjusted accordingly: Yes Anticipated Discharge Disposition: Home with Home Health Anticipated Discharge Timeframe: within 24 hours - Inpatient Certification Based on my medical assessment, after consideration of the patient's comorbidities, presenting symptoms, or acuity I expect that the services needed warrant INPATIENT care.: Yes I certify that my determination is in accordance with my understanding of Medicare's requirements for reasonable and necessary INPATIENT services [42 CFR 412.3e].: Yes Medical Necessity: Significant Comorbidiites Make Outpatient Treatment Too Risky, Need Close Monitoring Due to Risk of Patient Decompensation, Need For IV Fluids, Risk of Complication if Not Cared For in Hospital, Risk of Diagnosis Which Will Require Inpatient Eval/Care/Monitoring
[2020-03-04] MEDS: TAMSULOSIN HCL 0.4 MG CAP.SR.24H PO SCH (18:18)
[2020-03-04] MEDS: MELATONIN 5 MG TABLET PO SCH (21:40)
[2020-03-05] MEDS: IPRATROPIUM/ALBUTEROL 0.5-2.5 MG/3 ML AMPUL NEB SCH ×3 (02:22→13:29)
[2020-03-05 05:39] LABS: ANION GAP 7 (5-19); BLOOD UREA NITROGEN 26 mg/dL (7-20); CALCIUM 9.3 mg/dL (8.4-10.2); CARBON DIOXIDE 34 mmol/L (22-30); CHLORIDE 96 mmol/L (98-107); GLUCOSE 97 mg/dL (75-110)
[2020-03-05] MEDS: GABAPENTIN 300 MG CAPSULE PO SCH (09:35)
[2020-03-05] MEDS: SERTRALINE HCL 50 MG TABLET PO SCH (09:35)
[2020-03-05] MEDS: FLUTICASONE/VILANTEROL 200-25 MCG/DOSE IH SCH (09:35)
[2020-03-05] MEDS: FUROSEMIDE 40 MG TABLET PO SCH (09:35)
[2020-03-05] MEDS: PANTOT AC/MIN OIL/PET HY-PHL OINT 50 GM TOP SCH (09:56)
[2020-03-05 15:03] VITALS: BP 116/62
--- NOTE | 2020-03-05 15:05 | PDOC DISCHARGE SUMMARY ---
Impression - Admit/DC Date/PCP Admission Date/Primary Care Provider: 03/01/20 17[facility] Discharge Date: 03/05/20 - Discharge Diagnosis (1) Acute on chronic respiratory failure with hypoxia and hypercapnia Is this a current diagnosis for this admission?: Yes (2) Swelling of lower extremity Is this a current diagnosis for this admission?: Yes (3) Lymphedema Is this a current diagnosis for this admission?: Yes (4) Mild pulmonary hypertension Is this a current diagnosis for this admission?: Yes (5) Stasis dermatitis of both legs Is this a current diagnosis for this admission?: Yes (6) COPD (chronic obstructive pulmonary disease) Is this a current diagnosis for this admission?: Yes (7) HTN (hypertension) Is this a current diagnosis for this admission?: Yes (8) Morbid obesity with BMI of 40.0-44.9, adult Is this a current diagnosis for this admission?: Yes (9) DEMETRICE (acute kidney injury) Is this a current diagnosis for this admission?: Yes - Additional Information Resuscitation Status: Full Code Discharge Diet: Other (Comments) - Vegan Discharge Activity: Activity As Tolerated, Balance Activity w/Rest [facility] [[facility] - Follow up as needed Home Medications: Tamsulosin HCl [Flomax 0.4 mg Cap.sr] 0.4 mg PO DAILY 01/12/19 Acetaminophen [Tylenol 325 mg Tablet] 650 mg PO Q6HP PRN 01/06/20 Gabapentin [Neurontin 300 mg Capsule] 300 mg PO Q8 01/06/20 Melatonin [Melatonin 5 mg Tablet] 10 mg PO QHS 01/06/20 Sertraline HCl 50 mg PO DAILY 01/06/20 Albuterol Sulfate [Ventolin Hfa 8 gm Mdi] 2 puff IH Q6HP PRN #1 inhaler 01/10/20 Fluticasone Propionate [Flonase Nasal [place] 50 Mcg/[place] 16 gm] 1 spray NASL Q12 #1 inhaler 01/10/20 Albuterol Sulfate [Ventolin 0.083% Neb 2.5 mg/3 mL Ampul] 1 vial NEB Q6HP PRN 03/01/20 Furosemide [Lasix 40 mg Tablet] 40 mg PO Q2DAYS #0 03/05/20 Potassium Chloride 10 meq PO Q2D #0 03/05/20 History of Present Illiness History of Present Illness: Per Admitting Physician: "KAMERON TRUJILLO is a 59 year old male with history of CHF more likely right heart failure, COPD on home oxygen, nocturnal CPAP, chronic lower extremity swelling, who presents to the hospital once again for evaluation of lower extremity swelling. His symptoms started 1 week ago. He acknowledges dyspnea mostly present on ambulation. He states his lower extremity swelling was getting better but started to increase in the past week. He denies any chest pain. Denies any cough, fever, chills, nausea, vomiting. He admits to some o rthopnea. States he uses CPAP at home but is not fully certain if truly CPAP versus BiPAP. Does feel drowsy. Has not been able to see his primary care provider [facility] the [facility] since. Still does not have a emergency medical tech. In the ER, he was noted to be hypoxic. ER provider informs me that he was hypoxic on 2 L and subsequently still on 4 L and was transitioned to nonrebreather. Blood gas has not been checked at time of encounter. He was given ceftriaxone in the ER with concern for cellulitis of lower extremity. He was in the hospital few months ago and was treated with diuretics as well as BiPAP for his hypercapnic respiratory failure. He did have an DEMETRICE at that time. He was also treated for Pseudomonas UTI leading to bacteremia." Hospital Course Hospital Course: Patient admitted for acute on chronic severe hypercarbic and hypoxemic respiratory failure, worsening bilateral lower extremity edema with weeping fluid. Patient looks rather well today probably at or near his baseline. He states his breathing is not back to normal though and his legs are typically not this severely swollen. Per my discussions with staff there is some question as to his actual compliance with his home BiPAP and his medications. Reportedly, his BiPAP mask and tubing is extremely dirty and old. He has insurance coverage through the [facility] and he will need to reach out to them to schedule DME deliveries to his home so this does not happen in the future. I had a long discussion with him today about losing weight via diet control as his current condition and will be extremely difficult and potentially unsafe for him to exert himself enough to burn calories. I encouraged him to explore a vegan diet with some vitamin supplements however he was not at all interested in this idea. Creatinine is mildly elevated today, blood cultures are negative. He needs to wear compression stockings. He can likely go home tomorrow. He has no new complaints. 03/04/2020 Patient's creatinine has increased to consecutive BMP checks. I looked back at his previous admissions and it seems that this is a recurring pattern where he has diuresed to the point where he experiences prerenal azotemia and he must be rehydrated. I believe we are in that situation again now. I have stopped his lisinopril and Lasix and I have started him on very gentle IV fluids that can run until tomorrow. We will recheck his BMP tomorrow and if his creatinine has improved significantly, he could be discharged at that point. It is likely he will not be able to tolerate daily Lasix and may only be able to take this every 48 hours. I also ordered him thigh-high compression stockings today as he seems to be tolerating the calf high stockings pretty well. He had a positive blood culture 1/2 bottles reported to the duck operator last night. It was reported to me this morning that the cultures were growing gram-negative rods and he was started on Merrem. This was not actually true as the patient was growing gram- positive rods which are almost certainly a contaminant and he is clinically without any sign or symptom of infection. Merrem is stopped. Probable discharge tomorrow. 03/05/2020 Creatinine has returned to normal and patient is at his baseline respiratory status and lower extremity edema. It is very unlikely he can tolerate daily Lasix with potassium supplementation as he eventually experiences renal failure and hyperkalemia due to prerenal azotemia. We will try every other day Lasix and potassium to see if this is better tolerated. I have also discontinued his lisinopril as this seems to worsen his renal failure and hyperkalemia once he reaches this downward spiral point. This probably cannot be safely restarted given his history of frequent DEMETRICE and hyperkalemia. He very much wants to be discharged today and is agreeable to going home. We will get a physical therapy eval in his home and discharge. He was given compression stockings and recommended that he get thigh-high stockings rather than calf stockings which is all we have here. He must lose weight and I have strongly recommended he switch to a vegan diet however he is not interested in making any substantial changes to his diet. Physical Exam Vital Signs: Temp Pulse Resp BP Pulse Ox 97.7 F 70 18 118/79 96 09/05/20 11:37 03/05/20 13:30 03/05/20 13:30 03/05/20 11:37 03/05/20 13:30 Intake & Output 03/04/20 03/05/20 03/06/20 06:59 06:59 06:59 Intake Total 2280 950 1600 Output Total 1500 Balance 2280 950 100 Weight 134.8 kg 134.6 kg Exam: General appearance: PRESENT: no acute distress, cooperative, morbidly obese, states he feels well and would very much like to go home today Head exam: PRESENT: atraumatic, normocephalic Eye exam: PRESENT: conjunctiva pink Mouth exam: PRESENT: moist Respiratory exam: PRESENT: clear to auscultation abi. ABSENT: rales, rhonchi, wheezes Cardiovascular exam: PRESENT: RRR. ABSENT: diastolic murmur, rubs, systolic murmur GI/Abdominal exam: PRESENT: normal bowel sounds, soft. ABSENT: distended, guarding, mass, organolmegaly, rebound, tenderness Extremities exam: PRESENT: pedal edema, +2 edema, seems to be approximately at baseline Neurological exam: PRESENT: alert, awake, oriented to person, oriented to place, oriented to time, oriented to situation Psychiatric exam: PRESENT: appropriate affect, normal mood Skin exam: PRESENT: dry, intact, warm Results Laboratory Results: WBC 7.2 10^3/uL (4.0-10.5) 03/04/20 09:20 RBC 3.91 10^6/uL (4.35-5.55) L 03/04/20 09:20 Hgb 12.5 g/dL (13.5-17.0) L 03/04/20 09:20 Hct 37.4 % (37.9-51.0) L 03/04/20 09:20 MCV 96 fl (80-97) 03/04/20 09:20 MCH 31.9 pg (27.0-33.4) 03/04/20 09:20 MCHC 33.4 g/dL (32.0-36.0) 03/04/20 09:20 RDW 14.7 % (11.5-14.0) H 03/04/20 09:20 Plt Count 264 10^3/uL (150-450) 03/04/20 09:20 Lymph % (Auto) 24.7 % (13-45) 03/04/20 09:20 [place] % (Auto) 10.3 % (3-13) 03/04/20 09:20 Eos % (Auto) 2.2 % (0-6) 03/04/20 09:20 Baso % (Auto) 1.0 % (0-2) 03/04/20 09:20 Absolute Neuts (auto) 4.4 10^3/uL (1.7-8.2) 03/04/20 09:20 Absolute Lymphs (auto) 1.8 10^3/uL (0.5-4.7) 03/04/20 09:20 Absolute Monos (auto) 0.7 10^3/uL (0.1-1.4) 03/04/20 09:20 Absolute Eos (auto) 0.2 10^3/uL (0.0-0.6) 03/04/20 09: Absolute Basos (auto) 0.1 10^3/uL (0.0-0.2) 03/04/20 09:20 Seg Neutrophils % 61.8 % (42-78) 03/04/20 09:20 Carbonic Acid 2.01 mmol/L (1.05-1.35) H 03/03/20 08:28 HCO3/H2CO3 Ratio 17:1 03/03/20 08:28 ABG pH 7.33 (7.35-7.45) L 03/03/20 08:28 ABG pCO2 66.8 mmHg (35-45) H 03/03/20 08:28 ABG pO2 82.8 mmHg (80-100) 03/03/20 08:28 ABG HCO3 34.4 mmol/L (20-24) H 03/03/20 08:28 ABG Total CO2 36.5 mmol/L (23-27) H 03/03/20 08:28 ABG O2 Saturation 95.1 % (94-98) 03/03/20 08:28 ABG Base Excess 6.4 mmol/L 03/03/20 08:28 VBG pH 7.25 (7.30-7.42) L 03/02/20 06:21 VBG pCO2 85.7 mmHg (35-63) H* 03/02/20 06:21 VBG HCO3 36.6 mmol/L (20-32) H 03/02/20 06:21 VBG Base Excess 6.6 mmol/L 03/02/20 06:21 FiO2 2.5L 03/03/20 08:28 Sodium 137.1 mmol/L (137-145) 03/05/20 05:00 Potassium 5.0 mmol/L (3.6-5.0) 03/05/20 05:00 Chloride 96 mmol/L (98-107) L 03/05/20 05:00 Carbon Dioxide 34 mmol/L (22-30) H 03/05/20 05:00 Anion Gap 7 (5-19) 03/05/20 05:00 BUN 26 mg/dL (7-20) H 03/05/20 05:00 Creatinine 0.99 mg/dL (0.52-1.25) 03/05/20 05:00 Est GFR ( Amer) > 60 (>60) 03/05/20 05:00 Est GFR (MDRD) Non-Af > 60 (>60) 03/05/20 05:00 Glucose 97 mg/dL (75-110) 03/05/20 05:00 Lactic Acid 0.7 mmol/L (0.7-2.1) 03/01/20 15:01 Calcium 9.3 mg/dL (8.4-10.2) 03/05/20 05:00 Phosphorus 5.0 mg/dL (2.5-4.5) H 03/02/20 06:21 Magnesium 2.2 mg/dL (1.6-2.3) 03/02/20 06:21 Total Bilirubin 0.4 mg/dL (0.2-1.3) 03/01/20 15:01 Direct Bilirubin 0.3 mg/dL (0.0-0.4) 03/01/20 15:01 Neonat Total Bilirubin Not Reportable 03/01/20 15:01 Neonat Direct Bilirubin Not Reportable 03/01/20 15:01 Neonat Indirect Bili Not Reportable 03/01/20 15:01 AST 20 U/L (17-59) 03/01/20 15:01 ALT 12 U/L (<50) 03/01/20 15:01 Alkaline Phosphatase 71 U/L (38-126) 03/01/20 15:01 Creatine Kinase 61 U/L (55-170) 03/01/20 15:01 CK-MB (CK-2) 1.17 ng/mL (<4.55) 03/01/20 15:01 Troponin I < 0.012 ng/mL 03/01/20 15:01 NT-Pro-B Natriuret Pep 89 pg/mL (<125) 03/01/20 15:01 Total Protein 6.4 g/dL (6.3-8.2) 03/01/20 15:01 Albumin 3.6 g/dL (3.5-5.0) 03/01/20 15:01 Urine Color YELLOW 03/01/20 17:00 Urine Appearance SLIGHTLY-CLOUDY 03/01/20 17:00 Urine pH 7.0 (5.0-9.0) 03/01/20 17:00 Ur Specific [place] 1.024 03/01/20 17:00 Urine Protein 100 mg/dL (NEGATIVE) H 03/01/20 17:00 Urine Glucose (UA) NEGATIVE mg/dL (NEGATIVE) 03/01/20 17:00 Urine Ketones NEGATIVE mg/dL (NEGATIVE) 03/01/20 17:00 Urine Blood NEGATIVE (NEGATIVE) 03/01/20 17:00 Urine Nitrite POSITIVE (NEGATIVE) H 03/01/20 17:00 Urine Bilirubin NEGATIVE (NEGATIVE) 03/01/20 17:00 Urine Urobilinogen NEGATIVE mg/dL (<2.0) 03/01/20 17:00 Ur Leukocyte Esterase LARGE (NEGATIVE) H 03/01/20 17:00 Urine WBC (Auto) 154 /HPF 03/01/20 17:00 Urine RBC (Auto) 6 /HPF 03/01/20 17:00 U Hyaline Cast (Auto) 1 /LPF 03/01/20 17:00 Urine Bacteria (Auto) 1+ /HPF 03/01/20 17:00 Squamous Epi Cells Auto 1 /HPF 03/01/20 17:00 Urine Mucus (Auto) RARE /LPF 03/01/20 17:00 Urine Ascorbic Acid NEGATIVE (NEGATIVE) 03/01/20 17:00 03/01/20 15:01 CK-MB (CK-2) 1.17 Troponin I < 0.012 NT-Pro-B Natriuret Pep 89 Impressions: Chest X-Ray 03/01/20 13:59 IMPRESSION: NO ACUTE RADIOGRAPHIC FINDING IN THE CHEST. Plan Plan of Treatment: Follow-up with PCP Follow-up with cardiology Continue using graduated compression stockings, thigh-high if available Vegan diet strongly recommended Stop lisinopril Every other day Lasix and potassium supplement Time Spent: Greater than 30 Minutes Stroke Is this a Stroke Patient?: No Acute Heart Failure - Is this a Heart Failure Patient?: Yes Documentation of LVEF assessment?: Yes LVEF: LVEF Greater Than 40% Anticoagulant Therapy: N/A Discharged on Evidence-Based Beta Blockers: No, document contraindications Reason(s) not discharged on Evidence-Based Beta Blockers: Fluid Overload
== END 2020-03-05 16:20 | disposition home health service (06) | DRG 189 ==
LOC: ER 13:37 → EH 17:19 → 3S 03-02 00:02
PROVIDERS: ADMIT Internal Medicine; ATTEND Internal Medicine
PROC: 5A09457 Assistance with Respiratory Ventilation, 24-96 Consecutive Hours, Continuous Positive Airway Pressure (ICD-10-PCS; principal; 2020-03-01)
DX: J96.22 Acute and chronic respiratory failure with hypercapnia (principal); E66.2 Morbid (severe) obesity with alveolar hypoventilation; Z68.41 Body mass index [BMI] 40.0-44.9, adult; N17.9 Acute kidney failure, unspecified; J44.9 Chronic obstructive pulmonary disease, unspecified; J96.21 Acute and chronic respiratory failure with hypoxia; Z99.81 Dependence on supplemental oxygen; K70.30 Alcoholic cirrhosis of liver without ascites; F32.9 Major depressive disorder, single episode, unspecified; I48.91 Unspecified atrial fibrillation; I27.20 Pulmonary hypertension, unspecified; I87.2 Venous insufficiency (chronic) (peripheral); I11.0 Hypertensive heart disease with heart failure; I50.9 Heart failure, unspecified; Z87.828 Personal history of other (healed) physical injury and trauma; Z87.891 Personal history of nicotine dependence; Z79.51 Long term (current) use of inhaled steroids; Z79.899 Other long term (current) drug therapy; Z71.3 Dietary counseling and surveillance; I89.0 Lymphedema, not elsewhere classified
CPT/HCPCS: 36415; 36600; 71045; 80048; 80053; 81001; 82550; 82553; 82803; 83605; 83735; 83880; 84100; 84484; 85025; 85027; 87040; 87077; 87086; 87150; 94640; 94660; 96365; 96375; 99285; J0696; J1650; J1940; J2185; J2270; J3490; J7030

== ENCOUNTER 2020-03-25 12:59 | Emergency (ER) | payer OTHER, BC ==
--- NOTE | 2020-03-25 13:29 | ER Document Report ---
ED Medical Screen (RME) - General Chief Complaint: Pain With Urination Stated Complaint: URINARY ISSUE Time Seen by Provider: 03/25/20 13:26 Primary Care Provider: JOB,IFEANYI [Primary Care Provider] - Follow up as needed Mode of Arrival: Wheelchair Information source: Patient Notes: 59-year-old male patient sent over from the [facility] with complaints of urinary tract infection. Patient reports burning with urination, states he is unable to fully empty his bladder and it feels like he is going to "explode". Denies any fever, reports chills. Denies any nausea, vomiting or diarrhea. Exam: Patient alert, oriented, no acute distress noted. I have greeted and performed a rapid initial assessment of this patient. A comprehensive ED assessment and evaluation of the patient, analysis of test results and completion of the medical decision making process will be conducted by additional ED providers. I have specifically instructed the patient or family members with the patient to immediately return to any nursing staff should anything change in the patient's condition or with their chief complaint. TRAVEL OUTSIDE OF THE [place] IN LAST 30 DAYS: No - Related Data Allergies/Adverse Reactions: No Known Allergies Allergy (Verified 03/25/20 13:25) Past Medical History - Social History Chew tobacco use (# tins/day): No Frequency of alcohol use: Occasional - Past Medical History Cardiac Medical History: Reports: Hx Atrial Fibrillation, Hx Congestive Heart Failure, Hx Hypertension Pulmonary Medical History: Reports: Hx COPD - on 5L home O2, Hx Pneumonia, Hx Intubation - 11/11/18, Hx Respiratory Failure, Hx Sleep Apnea - noncompliant with CPAP Endocrine Medical History: Denies: Hx Diabetes Mellitus Type 1, Hx Diabetes Mellitus Type 2 Renal/ Medical History: Reports: Hx End Stage Renal Disease. 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 Musculoskeltal Medical History: Denies Hx Fibromyalgia Psychiatric Medical History: Reports: Hx Depression Traumatic Medical History: Denies: Hx Gunshot Wound, Hx Pneumothorax Infectious Medical History: Denies: Hx C-Diff, Hx HIV Past Surgical History: Reports: Other Physical Exam - Vital signs Vitals: Temp Pulse Resp BP Pulse Ox 97.8 F 81 18 140/89 H 95 03/25/20 13:15 03/25/20 13:15 03/25/20 13:15 03/25/20 13:15 03/25/20 13:15 Course - Vital Signs Vital signs: Temp Pulse Resp BP Pulse Ox 97.8 F 81 18 140/89 H 95 03/25/20 13:15 03/25/20 13:15 03/25/20 13:15 03/25/20 13:15 03/25/20 13:15 Doctor's Discharge - Discharge [facility]errals: [facility] - Follow up as needed
[2020-03-25 14:59] LABS: ABSOLUTE BASOPHILS # (AUTO) 0.1 10^3/uL (0.0-0.2); ABSOLUTE EOSINOPHILS # (AUTO) 0.1 10^3/uL (0.0-0.6); ABSOLUTE LYMPHOCYTES (AUTO) 1.3 10^3/uL (0.5-4.7); ABSOLUTE MONOCYTES (AUTO) 0.6 10^3/uL (0.1-1.4); ABSOLUTE NEUT (AUTO) 4.6 10^3/uL (1.7-8.2); BASOPHILS % (AUTO) 0.9 % (0-2); HEMATOCRIT 39.2 % (37.9-51.0); HEMOGLOBIN 13.4 g/dL (13.5-17.0); LYMPHOCYTES % (AUTO) 18.8 % (13-45); MEAN CORPUSCULAR HEMOGLOBIN 32.6 pg (27.0-33.4); MEAN CORPUSCULAR HGB CONC 34.3 g/dL (32.0-36.0); MEAN CORPUSCULAR VOLUME 95 fl (80-97); MONOCYTES % (AUTO) 9.4 % (3-13); PLATELET COUNT 231 10^3/uL (150-450); RED BLOOD COUNT 4.13 10^6/uL (4.35-5.55); SEGMENTED NEUTROPHILS % (AUTO) 68.9 % (42-78); TOTAL CELLS COUNTED % (AUTO) 100 %; WHITE BLOOD COUNT 6.7 10^3/uL (4.0-10.5)
[2020-03-25 15:17] LABS: ALBUMIN 4.3 g/dL (3.5-5.0); ALKALINE PHOSPHATASE 89 U/L (38-126); ANION GAP 9 (5-19); ASPARTATE AMINO TRANSFERASE 20 U/L (17-59); BILIRUBIN,DIRECT 0.3 mg/dL (0.0-0.4); BILIRUBIN,TOTAL 0.6 mg/dL (0.2-1.3); BLOOD UREA NITROGEN 16 mg/dL (7-20); CALCIUM 9.3 mg/dL (8.4-10.2); CARBON DIOXIDE 35 mmol/L (22-30); CHLORIDE 97 mmol/L (98-107); GLUCOSE 107 mg/dL (75-110); POTASSIUM 4.5 mmol/L (3.6-5.0); TOTAL PROTEIN 7.6 g/dL (6.3-8.2)
[2020-03-25 18:07] LABS: APPEARANCE,URINE SLIGHTLY-CLOUDY; BILIRUBIN,URINE NEGATIVE (NEGATIVE); COLOR,URINE YELLOW; GLUCOSE, URINE NEGATIVE (NEGATIVE); KETONES,URINE NEGATIVE (NEGATIVE); LEUKOCYTE ESTERASE,URINE SMALL (NEGATIVE); NITRITE,URINE NEGATIVE (NEGATIVE); PROTEIN,URINE 30 mg/dL (NEGATIVE); URINE SPECIFIC GRAVITY 1.019; UROBILINOGEN,URINE NEGATIVE mg/dL (<2.0)
[2020-03-25] MEDS ORDERED: FENTANYL CITRATE INJ/PF 100 MCG/2 ML AMPUL IV ONE (19:24)
--- NOTE | 2020-03-25 20:24 | ER Document Report ---
ED GI/ - General Chief Complaint: Pain With Urination Stated Complaint: URINARY ISSUE Time Seen by Provider: 03/25/20 13:26 Primary Care Provider: [facility] [Provider Group] - 03/28/20 [facility] - [facility]/28[facility]20 Mode of Arrival: Wheelchair Information source: Patient Notes: Patient presents after the the clinic called and told him that he had a UTI. Patient states he has had some dysuria symptoms and felt as though he was not a ble to completely empty his bladder. Patient states he has had dysuria symptoms for the past 2 weeks. Patient reports some decreased appetite and feeling tired. Patient does complain of right lateral side tenderness. Patient denies any back pain. TRAVEL OUTSIDE OF THE [place] IN LAST 30 DAYS: No - HPI Patient complains to provider of: Other - Right lateral side pain. No: Diarrhea, Vomiting Onset: Other - Dysuria x2 weeks, side pain today Timing/Duration: Worse Quality of pain: Achy Pain Level: 4 Location: Other - Right lateral side. No: Left flank, Right flank Associated symptoms: Dysuria, Urinary hesitancy, Urinary retention. denies: Diarrhea, Fever, Nausea, Urinary frequency, Urinary urgency Exacerbated by: Denies Relieved by: Denies Similar symptoms previously: No Recently seen / treated by doctor: Yes - Related Data Allergies/Adverse Reactions: No Known Allergies Allergy (Verified 03/25/20 13:25) Past Medical History - General Information source: Patient - Social History Smoking Status: Former Smoker Chew tobacco use (# tins/day): No Frequency of alcohol use: Occasional Drug Abuse: None Occupation: None Lives with: Spouse/Significant other Family History: Hypertension - Past Medical History Cardiac Medical History: Reports: Hx Atrial Fibrillation, Hx Congestive Heart Failure, Hx Hypertension Pulmonary Medical History: Reports: Hx COPD - on 5L home O2, Hx Pneumonia, Hx Intubation - 11/11/18, Hx Respiratory Failure, Hx Sleep Apnea - noncompliant with CPAP Endocrine Medical History: Denies: Hx Diabetes Mellitus Type 1, Hx Diabetes Mellitus Type 2 Renal/ Medical History: Reports: Hx End Stage Renal Disease. 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 denies: Fever EENT: No symptoms reported Cardiovascular: No symptoms reported. denies: Chest pain Respiratory: No symptoms reported. denies: Cough, Short of breath Gastrointestinal: Abdominal pain - Right lateral side pain. denies: Vomiting Genitourinary: Dysuria, Retention. denies: Flank pain Male Genitourinary: No symptoms reported. denies: Testicular pain Musculoskeletal: No symptoms reported. denies: Back pain Skin: No symptoms reported Hematologic/Lymphatic: No symptoms reported Neurological/Psychological: No symptoms reported Physical Exam - Vital signs Vitals: Temp Pulse Resp BP Pulse Ox 97.8 F 81 18 140/89 H 95 03/25/20 13:15 03/25/20 13:15 03/25/20 13:15 03/25/20 13:15 03/25/20 13:15 - General General appearance: Appears well, Alert In distress: None - HEENT Head: Normocephalic, Atraumatic Eyes: Normal Conjunctiva: Normal Nasal: Normal Mouth/Lips: Normal Mucous membranes: Normal Neck: Normal, Supple - Respiratory Respiratory status: No respiratory distress Chest status: Nontender Breath sounds: Wheezing - scattered faint Chest palpation: Normal - Cardiovascular Rhythm: Regular Heart sounds: S1 appreciated, S2 appreciated - Abdominal Inspection: Morbidly Obese Distension: No distension Bowel sounds: Normal Tenderness: Tender - Right lateral side tenderness Organomegaly: No organomegaly - Back Back: Normal, Nontender. No: CVA tenderness - Extremities General upper extremity: Normal inspection, Normal strength General lower extremity: Normal inspection, Normal strength - Neurological Neuro grossly intact: Yes Cognition: Normal [place] Coma Scale Eye Opening: Spontaneous [place] Coma Scale Verbal: Oriented [place] Coma Scale Motor: Obeys Commands [place] Coma Scale Total: 15 - Psychological Associated symptoms: Normal affect, Normal mood - Skin Skin Temperature: Warm Skin Moisture: Dry Skin Color: Normal Course - Re-evaluation Re-evalutation: 03/25/20 20:49 Patient with urinary retention with some leukocyte esterase noted on urinalysis. Urine will be cultured and patient started on a short course of antibiotic given his chief complaint of dysuria and reports of having a UTI. Patient without any obstructive uropathy noted on CT scan. 03/25/20 20:55 Patient does not want to have Chan catheter left in. Discussed with patient concerns about urinary retention. Patient states that he had voided several times yesterday and once earlier today. Patient advised that if he is not able to void after 8 hours once the Chan catheter is removed he should return to the emergency department for replacement. Patient encouraged to follow-up with urologist on outpatient basis. Patient states he was told he had a UTI which is prompted his visit here today. Patient with mild leukocyte esterase noted on urinalysis. Urine will be cultured and patient started on a short course of antibiotics at this time. No other acute findings noted on patient CT scanning of the abdomen and pelvis. Patient presents with abdominal pain without signs of peritonitis or other life-threatening or serious etiology. Patient appears stable for discharge and has been instructed to return immediately if the symptoms worsen in any way. - Vital Signs Vital signs: Temp Pulse Resp BP Pulse Ox 98.9 F 78 18 133/82 H 99 03/25/20 21:39 03/25/20 21:39 03/25/20 21:39 03/25/20 21:39 03/25/20 21:39 - Laboratory Result Diagrams: 03/25/20 14:44 03/25/20 14:44 Laboratory results interpreted by me: 03/25/20 03/25/20 03/25/20 14:44 14:44 17:46 RBC 4.13 L Hgb 13.4 L RDW 15.0 H Chloride 97 L Carbon Dioxide 35 H Urine Protein 30 H Ur Leukocyte Esterase SMALL H 03/25/20 20:49 Labs- All tests 24 hr 03/25/20 03/25/20 03/25/20 14:44 14:44 17:46 WBC 6.7 RBC 4.13 L Hgb 13.4 L Hct 39.2 MCV 95 MCH 32.6 MCHC 34.3 RDW 15.0 H Plt Count 231 Lymph % (Auto) 18.8 [place] % (Auto) 9.4 Eos % (Auto) 2.0 Baso % (Auto) 0.9 Absolute Neuts (auto) 4.6 Absolute Lymphs (auto) 1.3 Absolute Monos (auto) 0.6 Absolute Eos (auto) 0.1 Absolute Basos (auto) 0.1 Seg Neutrophils % 68.9 Sodium 140.9 Potassium 4.5 Chloride 97 L Carbon Dioxide 35 H Anion Gap 9 BUN 16 Creatinine 0.89 Est GFR ( Amer) > 60 Est GFR (MDRD) Non-Af > 60 Glucose 107 Calcium 9.3 Total Bilirubin 0.6 Direct Bilirubin 0.3 Neonat Total Bilirubin Not Reportable Neonat Direct Bilirubin Not Reportable Neonat Indirect Bili Not Reportable AST 20 ALT 14 Alkaline Phosphatase 89 Total Protein 7.6 Albumin 4.3 Urine Color YELLOW Urine Appearance SLIGHTLY-CLOUDY Urine pH 6.0 Ur Specific [place] 1.019 Urine Protein 30 H Urine Glucose (UA) NEGATIVE Urine Ketones NEGATIVE Urine Blood NEGATIVE Urine Nitrite NEGATIVE Urine Bilirubin NEGATIVE Urine Urobilinogen NEGATIVE Ur Leukocyte Esterase SMALL H Urine WBC (Auto) 18 Urine RBC (Auto) 2 Urine Mucus (Auto) RARE Urine Ascorbic Acid NEGATIVE - Diagnostic Test Radiology reviewed: Reports reviewed Discharge - Discharge Clinical Impression: Urinary retention UTI (urinary tract infection) Qualifiers: Urinary tract infection type: site unspecified Hematuria presence: without hematuria Qualified Code(s): N39.0 - Urinary tract infection, site not specified Abdominal pain Qualifiers: Abdominal location: unspecified location Qualified Code(s): R10.9 - Unspecified abdominal pain Condition: Stable Disposition: HOME, SELF-CARE Instructions: Abdominal Pain ([facility]), Trimethoprim-Sulfa ([facility]), Urinary Retention ([facility]), Urinary Tract Infection ([facility]) Additional Instructions: Return immediately for any new or worsening symptoms Followup with your primary care provider, call tomorrow to make a followup appointment Urine culture is pending, we will call if you need any different treatment. If you are unable to urinate within the next 8 hours you should return to the hospital for further evaluation. Follow-up with urologist for further evaluation, call Saturday for an appointment Prescriptions: Sulfamethoxazole/Trimethoprim [Bactrim Ds Tablet] 1 each PO BID #14 tablet [facility]: [facility] - [facility]28/20 [facility] - 03/28/20
--- NOTE | 2020-03-25 20:38 | RADIOLOGY REPORT (SQ) ---
EXAM DESCRIPTION: CT ABDOMEN PELVIS WITHOUT IV CONTRAST COMPLETED DATE/TME: 03/25/2020 19:24 CLINICAL HISTORY: 59 years, Male, r side pain, urinary retention COMPARISON: CT from 11/16/2019. TECHNIQUE: Axial images without IV or oral contrast. Images stored on PACS. All CT scanners at this facility use dose modulation, iterative reconstruction, and/or weight based dosing when appropriate to reduce radiation dose to as low as reasonably achievable (ALARA). FINDINGS: Right lower and middle lobes and top of the liver not included in study. Study from 11/16/2019 demonstrated right middle and lower lobe infiltrates. Minimal residual infiltrate in the right lower lobe is present. One mild fatty liver. Biliary system, spleen, pancreas, kidneys, aorta and para-aortic regions are unremarkable. No suspicious bowel or peritoneal abnormalities. Narrow umbilical hernia with herniation of fat. Moderate spinal stenosis at L4-5. CT of the pelvis demonstrates contracted urinary bladder secondary to catheter. There is suspected diffuse wall thickening which is difficult to estimate. Prostate not enlarged. Bowel loops are unremarkable. No free fluid or adenopathy. Bony pelvis is unremarkable. IMPRESSION: 1. The right upper liver and the right lower lung not well included in study. Previous study demonstrated right middle and lower lobe infiltrates. 2. Fatty liver. 3. Unremarkable kidneys. 4. Contracted urinary bladder secondary to catheter... There is suspected urinary bladder wall thickening which is difficult to estimate.
[2020-03-25] MEDS ORDERED: SULFAMETHOXAZOLE/TRIMETHOPRIM 800-160 MG TABLET PO ONE (20:54)
[2020-03-25 21:39] VITALS: BP 133/82
== END 2020-03-25 21:39 | disposition home or self-care (01) ==
LOC: ER 12:59
DX: N39.0 Urinary tract infection, site not specified (principal); R10.9 Unspecified abdominal pain; R33.9 Retention of urine, unspecified; I48.91 Unspecified atrial fibrillation; I13.2 Hypertensive heart and chronic kidney disease with heart failure and with stage 5 chronic kidney disease, or end stage renal disease; N18.6 End stage renal disease; I50.9 Heart failure, unspecified
CPT/HCPCS: 99285; 51702; 96374; 36415; 87086; 85025; 87088; 80053; 81001; 87186; 74176; J3010

== ENCOUNTER 2020-04-03 22:01 | Emergency (ER) | payer OTHER, BC ==
--- NOTE | 2020-04-03 22:25 | ER Document Report ---
ED Medical Screen (RME) - General Chief Complaint: Accidental Overdose Stated Complaint: SLEEP Time Seen by Provider: 04/03/20 22:20 Primary Care Provider: JOB,IFEANYI [Primary Care Provider] - Follow up as needed Mode of Arrival: Medic Information source: Patient Notes: HPI; 59-year-old male past medical history significant for COPD, CHF presents to the emergency room via EMS complaining of worsening shortness of breath. Patient states he is on home O2 throughout the day and wears a BiPAP at night. He states tonight while he was sleeping his BiPAP stopped working. States EMS came to the house they were able to get it running again 30 minutes after they left it stopped working again. Patient is concerned that he will in his sleep tonight without his BiPAP. PE: Alert and oriented x3. Mild distress noted. Lungs diminished throughout. Heart: Regular rate rhythm without murmurs, rubs, gallops. 2+ pitting edema noted bilaterally. Patient currently on 5 L of oxygen. Charge nurse aware. I have greeted and performed a rapid initial assessment of this patient. A comprehensive ED assessment and evaluation of the patient, analysis of test results and completion of the medical decision making process will be conducted by additional ED providers. I have specifically instructed the patient or family members with the patient to immediately return to any nursing staff should anything change in the patient's condition or with their chief complaint. TRAVEL OUTSIDE OF THE [place] IN LAST 30 DAYS: No - Related Data Allergies/Adverse Reactions: No Known Allergies Allergy (Verified 03/25/20 13:25) Past Medical History - Past Medical History Cardiac Medical History: Reports: Hx Atrial Fibrillation, Hx Congestive Heart Failure, Hx Hypertension Pulmonary Medical History: Reports: Hx COPD - on 5L home O2, Hx Pneumonia, Hx Intubation - 11/11/18, Hx Respiratory Failure, Hx Sleep Apnea - noncompliant with CPAP Endocrine Medical History: Denies: Hx Diabetes Mellitus Type 1, Hx Diabetes Mellitus Type 2 Renal/ Medical History: Reports: Hx End Stage Renal Disease. 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
--- NOTE | 2020-04-04 01:14 | RADIOLOGY REPORT (SQ) ---
EXAM DESCRIPTION: XR CHEST 1 VIEW COMPLETED DATE/TME: 04/03/2020 22:20 CLINICAL HISTORY: 59 years, Male, dyspnea COMPARISON: 03/01/2020 chest NUMBER OF VIEWS: 1 TECHNIQUE: Portable chest LIMITATIONS: None. FINDINGS: Heart size is stable. Stable elevation right hemidiaphragm. Lungs clear. No pneumothorax IMPRESSION: No acute cardiopulmonary process copyright 2010 [employer]- All Rights Reserved
--- NOTE | 2020-04-04 01:17 | ER Document Report ---
ED General - General Mode of Arrival: Medic Information source: Patient TRAVEL OUTSIDE OF THE [place] IN LAST 30 DAYS: No - General Chief Complaint: Other Stated Complaint: SLEEP Time Seen by Provider: 04/03/20 22:20 Primary Care Provider: JOB,IFEANYI [Primary Care Provider] - Follow up as needed Notes: 59-year-old male presents the emergency department chief complaint of shortness of breath after his BiPAP stopped working. Patient reports he was on his home BiPAP when he woke up because it was not working. EMS came out to the house, fix the BiPAP and within 30 minutes it was not working again. Patient denies any recent cough, congestion, fever, chills. He states he has been feeling well prior to this. (ELIAS WRIGHT) - Related Data Allergies/Adverse Reactions: No Known Allergies Allergy (Verified 03/25/20 13:25) Past Medical History - General Information source: Patient - Social History Smoking Status: Never Smoker Family History: Hypertension Patient has homicidal ideation: No - Past Medical History Cardiac Medical History: Reports: Hx Atrial Fibrillation, Hx Congestive Heart Failure, Hx Hypertension Pulmonary Medical History: Reports: Hx COPD - on 5L home O2, Hx Pneumonia, Hx Intubation - 11/11/18, Hx Respiratory Failure, Hx Sleep Apnea - noncompliant with CPAP Endocrine Medical History: Denies: Hx Diabetes Mellitus Type 1, Hx Diabetes Mellitus Type 2 Renal/ Medical History: Reports: Hx End Stage Renal Disease. 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 Musculoskeletal Medical History: Denies Hx Fibromyalgia Psychiatric Medical History: Reports: Hx Depression Traumatic Medical History: Denies: Hx Gunshot Wound, Hx Pneumothorax Infectious Medical History: Denies: Hx C-Diff, Hx HIV Past Surgical History: Reports: Other - Immunizations Hx Pneumococcal Vaccination: 07/01/17 Review of Systems - Review of Systems Constitutional: No symptoms reported EENT: No symptoms reported Cardiovascular: No symptoms reported Respiratory: Short of breath Gastrointestinal: No symptoms reported Genitourinary: No symptoms reported Male Genitourinary: No symptoms reported Musculoskeletal: No symptoms reported Skin: No symptoms reported Hematologic/Lymphatic: No symptoms reported Neurological/Psychological: No symptoms reported Physical Exam - Vital signs Vitals: Temp Pulse Resp BP Pulse Ox 98.5 F 74 18 135/73 H 99 04/03/20 22:37 04/03/20 22:37 04/03/20 22:37 04/03/20 22:37 04/03/20 22:37 - Notes Notes: PHYSICAL EXAMINATION: GENERAL: Well-appearing, well-nourished and in no acute distress. HEAD: Atraumatic, normocephalic. EYES: Pupils equal round and reactive to light, extraocular movements intact, sclera anicteric, conjunctiva are normal. ENT: Nares patent, oropharynx clear without exudates. Moist mucous membranes. NECK: Normal range of motion, supple without lymphadenopathy LUNGS: Breath sounds clear to auscultation bilaterally and equal. No wheezes rales or rhonchi. HEART: Regular rate and rhythm without murmurs ABDOMEN: Soft, nontender, nondistended abdomen. No guarding, no rebound. No masses appreciated. Musculoskeletal: Normal range of motion, no pitting or edema. No cyanosis. NEUROLOGICAL: Cranial nerves grossly intact. Normal speech, normal gait. Normal sensory, motor exams PSYCH: Normal mood, normal affect. SKIN: Warm, Dry, normal turgor, no rashes or lesions noted. (ELIAS WRIGHT) Course - Re-evaluation Re-evalutation: 04/04/20 12:06 Spoke with Brandan Valladares with discharge planning, she is attempting to assist patient with getting his medical supplies that he is needing. 04/04/20 16:15 associate media planner, Brandan Valladares states that because [facility] his order for his BiPAP has to be written by a [facility] provider. At this time she does not have a order although they are trying to work on getting an order. Due to the time of day it is likely that patient will not be able to get a BiPAP from a medical supply facility before close of business today and patient will likely continue to be a social hold until they can get something worked out tomorrow. (YVONNE COTE) 04/04/20 01:17 Patient appears well, nontoxic, his vital signs were within normal limits on arrival. He is resting comfortably on the BiPAP this was ordered because patient's home BiPAP stopped working. He states he felt just fine prior to going to sleep. Chest x-ray was reviewed, no acute findings. I canceled the lab work that was ordered by triage as patient has no complaints at this time. 04/05/20 01:40 Patient is resting comfortably in the room. He will likely be discharged later this morning after the social worker psychiatric is able to speak with the [facility] regarding [facility] his oxygen and BiPAP machine. (ELIAS WRIGHT) - Vital Signs Vital signs: Temp Pulse Resp BP Pulse Ox 97.7 F 71 23 H 105/72 96 04/05/20 06:29 04/05/20 12:16 04/06/20 03:35 04/05/20 12:16 04/06/20 03:35 Discharge - Discharge Clinical Impression: Shortness of breath Malfunction of continuous positive airway pressure (CPAP) or bilevel positive airway pressure (BPAP) machine Qualifiers: Encounter type: initial encounter Qualified Code(s): T88.8XXA - Other specified complications of surgical and medical care, not elsewhere classified, initial encounter Condition: Stable Disposition: HOME, SELF-CARE Additional Instructions: Please continue taking all medications as prescribed by your primary care provider. Follow-up with them as per your normal routine. Return to the emergency department with any new or worsening symptoms. [facility]errals: [facility] [[facility]] - Follow up in 3-5 days
--- NOTE | 2020-04-04 14:35 | ER Document Report ---
Doctor's Note Notes: 04/04/20 14:34 Patient examined just now. Patient resting comfortably in the bed watching TV. He is reclining and using his BiPAP. The tidal volume was approximately 450 to 500/breath. Patient's vital signs are stable. Social work is currently working on obtaining the patient the necessary machinery that he needs for home.
[2020-04-04] MEDS: TAMSULOSIN HCL 0.4 MG CAP.SR.24H PO SCH (17:32)
[2020-04-04] MEDS: SERTRALINE HCL 50 MG TABLET PO SCH (17:32)
[2020-04-04] MEDS: LISINOPRIL 10 MG TABLET PO SCH (17:32)
[2020-04-04] MEDS: FUROSEMIDE 40 MG TABLET PO SCH (17:32)
[2020-04-04] MEDS: GABAPENTIN 300 MG CAPSULE PO SCH ×2 (17:32→18:10)
[2020-04-04] MEDS ORDERED: BUDESONIDE NEB 0.25 MG/2 ML AMPUL NEB SCH (18:00)
[2020-04-04] MEDS: FLUTICASONE NASAL SPRAY 50 MCG/SPRY 120 SPRAY/16 GM NASL SCH ×2 (18:11→18:39)
[2020-04-04] MEDS: BUDESONIDE NEB 0.25 MG/2 ML AMPUL NEB SCH (20:15)
[2020-04-04] MEDS: MELATONIN 5 MG TABLET PO SCH (21:18)
[2020-04-05] MEDS: BUDESONIDE NEB 0.25 MG/2 ML AMPUL NEB SCH ×2 (09:12→21:13)
[2020-04-05] MEDS: SERTRALINE HCL 50 MG TABLET PO SCH (09:28)
[2020-04-05] MEDS: TAMSULOSIN HCL 0.4 MG CAP.SR.24H PO SCH (09:28)
[2020-04-05] MEDS: FLUTICASONE NASAL SPRAY 50 MCG/SPRY 120 SPRAY/16 GM NASL SCH ×2 (09:28→17:30)
[2020-04-05] MEDS: LISINOPRIL 10 MG TABLET PO SCH (09:28)
[2020-04-05] MEDS: GABAPENTIN 300 MG CAPSULE PO SCH ×3 (09:28→18:28)
--- NOTE | 2020-04-05 10:57 | ER Document Report ---
Doctor's Note Notes: 04/05/20 10:56 Patient seen and examined this morning. Patient is resting comfortably in the bed watching TV. He denies any significant complaints or concerns at this time except for some left lateral neck pain which she states is chronic. He states that this is the pain he takes gabapentin for. He states he feels that he has breathing normally and he appears to be is his respirations are unlabored. He does have decreased breath sounds bilaterally but I believe this is mainly due to body habitus as he has no significant increased work of breathing. The volumes on the BiPAP are approximately 3 50-400. His vital signs are stable. Social work is currently working on arranging the necessary devices so the patie nt can be discharged home.
[2020-04-05] MEDS ORDERED: HYDROCODONE/ACETAMINOPHEN 5-325 MG TABLET PO ONE (12:30)
--- NOTE | 2020-04-05 13:22 | ER Document Report ---
Doctor's Note Notes: 04/05/20 13:21 Patient had an EKG performed for the left-sided pain. I suspect this pain is chronic but an EKG was obtained to make sure there is no acute pathology. EKG interpretation: Patient has a normal sinus rhythm. Rate is 67. Patient has a normal axis. There is no significant ischemic changes.
--- NOTE | 2020-04-05 17:35 | EKG REPORT ---
SEVERITY:- NORMAL ECG - SINUS RHYTHM : Confirmed by: Carlota Joseph MD 05-Apr-2020 17:35:27
[2020-04-05] MEDS: MELATONIN 5 MG TABLET PO SCH (21:13)
[2020-04-06] MEDS: GABAPENTIN 300 MG CAPSULE PO SCH ×2 (09:46→14:24)
[2020-04-06] MEDS: LISINOPRIL 10 MG TABLET PO SCH (09:46)
[2020-04-06] MEDS: TAMSULOSIN HCL 0.4 MG CAP.SR.24H PO SCH (09:47)
[2020-04-06] MEDS: FUROSEMIDE 40 MG TABLET PO SCH (09:47)
[2020-04-06] MEDS: SERTRALINE HCL 50 MG TABLET PO SCH (09:48)
[2020-04-06] MEDS: BUDESONIDE NEB 0.25 MG/2 ML AMPUL NEB SCH (09:51)
[2020-04-06] MEDS: FLUTICASONE NASAL SPRAY 50 MCG/SPRY 120 SPRAY/16 GM NASL SCH (09:52)
[2020-04-06] MEDS ORDERED: POTASSIUM CHLORIDE 10 MEQ TABLET.ER PO ONE (10:28)
--- NOTE | 2020-04-06 10:33 | ER Document Report ---
Doctor's Note Notes: 04/06/20 10:32 Patient examined just now. Patient is sitting up in the room drinking coffee. He states that he is taking a 1 hour break from his BiPAP. He states that he feels pretty good and much better than he did the last couple of days. He states he hopes that he gets to go home today. Social work is currently working on being able to arrange for his equipment to be sent to his home. Equipment has apparently been sent to the [facility] and now they are working on getting the equipment from the [facility] to his house. He denies any other significant complaints at this time. He did request a potassium pill and states he is on daily potassium at home. I have written for daily potassium.
[2020-04-06 15:21] VITALS: BP 128/60
[2020-04-07] MEDS ORDERED: POTASSIUM CHLORIDE 10 MEQ TABLET.ER PO SCH (10:00)
== END 2020-04-06 15:29 | disposition home or self-care (01) ==
LOC: ER 22:01
DX: R06.02 Shortness of breath (principal); T88.8XXA Other specified complications of surgical and medical care, not elsewhere classified, initial encounter; J44.9 Chronic obstructive pulmonary disease, unspecified; I13.2 Hypertensive heart and chronic kidney disease with heart failure and with stage 5 chronic kidney disease, or end stage renal disease; I50.9 Heart failure, unspecified; N18.6 End stage renal disease; I48.91 Unspecified atrial fibrillation; Z99.81 Dependence on supplemental oxygen; G89.29 Other chronic pain; M54.2 Cervicalgia
CPT/HCPCS: 93005; 94640 ×4; 99285; 71045; 93010; J3490 ×2